=== PATIENT | female | born 1960 | race Caucasian/White ===

== ENCOUNTER 2016-05-13 22:31 | Inpatient (IN) | payer OTHER ==
[~2016-05-13] VITALS: Ht 152.4 cm; Wt 72.1 kg
[~2016-05-13 22:31] MED LIST: /ESCI10TA; /ESCI10TA OR; /ESCI20TA OR; /ESOM40CA PO; /HYDR.5CR EXT; /LORA10TA PO; /MOXI40TA OR; /OXYC15TA; /OXYC15TA PO; /PANT40TA; /PANT40TA OR; /PROM25SU OR; /ROPI5TA PO; ACET-654 PO; ACET650S OR; ACET65TA OR; ALLE25CA; ALLE25CA OR; AMLO10TA; AMLO10TA OR; AMLO10TA PO; AMLO10TA2 PO; AMRIX; AMRIX OR; ASTELIN; ATEN50TA2 PO; Atenolol OR; B-650TAB2 PO; BACL10TA2 PO; BACT800T5 PO; BACTROBAN; BELS1TAB4 PO; BENI20TA11; BENI20TA11 OR; BISAC5TA PR; CELE10TA PO; CELE20TA PO; CETI10TA PO; CETI10TA3 PO; CIPR25SS PO; CIPR500T4 OR; CIPROFLOXACIN OR; CLAR5CHW PO; CLON2TAB PO; COLA100C PO; COLA100C2; COLA100C2 OR; COLA50CA3 PO; CYMB1CAP5 PO; DANA200C PO; DICL13PA TD; DIFL150T OR; DOCU100C PO; DOCU10ELUD FT; ELIDEL; ELOCON; EMLA2.5C TOP; FENT75PA TD; FERR325T PO; FERR325T3 PO; FLAG500T OR; FLAG500T PO; FLON0.05; HCTZ PO; HEPA100SYR IV; HYDR25TA6; HYDR25TA6 OR; HYDR25TA6 PO; HYDR50TAB PO; HYDROCORTISONE0.5 % TOP; IBUP200T2 PO; IBUP80TA PO; IBUPOTC PO; KLON0.5T OR; KLON0.5T PO; KLON2TAB PO; KLOR10TA21 PO; KLOR10TA5 PO; LEVA500T PO; LEVA750T OR; LEVO750T PO; LOPR50TA; LOPR50TA OR; LORATADINE; LYRI75CA OR; MAGN400C2 PO; MAGN400T5 PO; MAGN500T2 OR; MAGNESIUM OXIDE PO; MECL-68 PO; METH10TA2; METH10TA2 PO; MIRA0.12 PO; MIRA0.254 PO; MIRA0.5T PO; MIRA3350 PO; MIRA33504 PO; MIRALAX; MIRALEX OR; MIRALEX PO; MIRAPEX PO; MULTIVIT PO; MULTTAB4 PO; NEUR300C OR; OMEP20CA3 PO; OMEP40CA2 PO; OSEL75CA PO; OXYC10TA56; OXYC15TA50; OXYC15TA50 OR; OXYC15TA76 PO; OXYC1TAB57 PO; OXYC30TA84 PO; OXYC40TA19; OXYC40TA19 OR; OXYC5CAP4 OR; OXYC60TA PO; OXYC80TA14 OR; OXYCO5TA PO; OXYCONTIN; OYST500T PO; PANT20TA PO; PEG1POW PO; PENC1CR TOP; PENNSAID; PEPC20TA2 PO; PHEN 25 OR; PHEN 25 PO; POTA10CA PO; POTA20TA6 PO; PREG50CA OR; PRIL20CA PO; PROM-190 PO; PROM25TA PO; PROM50TA2 PO; PROMETHAZINE; REQU5TAB PO; SLF IV; SOMA350T PO; TIZA4CAP3 PO; TRAZ100T2 PO; TRAZ100T4 PO; TRAZ50TA PO; TRIA1CR TOP; TUMS1000 PO; TYLE325T5 PO; VIT D 2000 PO; VITA250T30 PO; VITA500046 PO; VITA500047 PO; VITA50TA43 PO; VITACAP31 PO; VITAD1000T PO; VITAMIN B COMPLE1 PO; VITMTA PO; VOLT1GEL TOP; XANA1TAB2; XANA1TAB2 OR; XANA2TAB2 OR; ZANA4CAP OR; ZANA4TAB PO; [UNRECOGNIZED DRUG - CODE] IV; [UNRECOGNIZED DRUG - CODE] PO; [UNRECOGNIZED DRUG - CODE] TOP; [UNRECOGNIZED DRUG - OTHER]; [UNRECOGNIZED DRUG - OTHER]; [UNRECOGNIZED DRUG - OTHER] IV; [UNRECOGNIZED DRUG - OTHER] OR; [UNRECOGNIZED DRUG - OTHER] PO; phenergan PO
[2016-05-13] MEDS ORDERED: HYDROmorphone HCL 1 MG/ML SYRINGE (J1170) As Ordered ONE (23:21)
[2016-05-13] MEDS ORDERED: ONDANSETRON 4MG/2ML VIAL (J2405) As Ordered ONE (23:21)
[2016-05-13 23:54] LABS: BASO % 0.5 % (0.0-1.0); EOS # 0.1 K/mm3 (0.0-0.50); EOS % 3.2 % (0.0-3.0); LARGE UNSTAINED CELL # 0.1 K/mm3 (0.0-0.4); LARGE UNSTAINED CELL % 2.4 % (0.0-4.0); LYMPH # 1.5 K/mm3 (1.5-4.5); LYMPH % 44.3 % (24.0-44.0); MEAN CORPUSCULAR HEMOGLOBIN 29.1 pg (27.0-33.0); MEAN CORPUSCULAR HGB CONC 33.7 g/dl (32.0-36.5); MEAN CORPUSCULAR VOLUME 86.4 fl (80.0-96.0); MONO # 0.2 K/mm3 (0.0-0.8); MONO % 4.3 % (0.0-5.0); NEUTROPHILS # 1.6 K/mm3 (1.8-7.7); NEUTROPHILS % 45.2 % (36.0-66.0); PLATELET COUNT, AUTOMATED 132 k/mm3 (150-450); RED CELL DISTRIBUTION WIDTH 13.8 % (11.5-14.5); WHITE BLOOD COUNT 3.5 K/mm3 (4.0-10.0)
[2016-05-14 00:20] LABS: ALBUMIN 3.2 GM/DL (3.2-5.2); ALBUMIN/GLOBULIN RATIO 0.94 (1.00-1.93); ALKALINE PHOSPHATASE 98 U/L (45-117); ALT/SGPT 19 U/L (12-78); ANION GAP 5 MEQ/L (8-16); AST/SGOT 19 U/L (15-37); BILIRUBIN,DIRECT 0.1 MG/DL (0.0-0.2); BILIRUBIN,TOTAL 0.3 MG/DL (0.2-1.0); BLOOD UREA NITROGEN 13 MG/DL (7-18); CALCIUM LEVEL 8.3 MG/DL (8.5-10.1); CARBON DIOXIDE LEVEL 35 MEQ/L (21-32); CHLORIDE LEVEL 107 MEQ/L (98-107); CREATININE FOR GFR 0.63 MG/DL (0.55-1.02); GLOMERULAR FILTRATION RATE > 60.0 (>51); GLUCOSE, FASTING 102 MG/DL (70-105); POTASSIUM SERUM 3.2 MEQ/L (3.5-5.1); SODIUM LEVEL 147 MEQ/L (136-145); TOTAL PROTEIN 6.6 GM/DL (6.4-8.2)
[2016-05-14] MEDS ORDERED: GASTROGRAFIN SOLUTION 30ML (Q9963) As Ordered ONE (00:31)
[2016-05-14] MEDS ORDERED: ACETAMINOPHEN 325 MG TAB As Ordered ONE (00:32)
[2016-05-14] MEDS ORDERED: HYDROmorphone HCL 1 MG/ML SYRINGE (J1170) As Ordered ONE ×3 (00:52→05:05)
[2016-05-14] MEDS ORDERED: ISOVUE-370 76% 100ML VIAL (Q9967) As Ordered ONE (01:29)
--- NOTE | 2016-05-14 02:10 | REPUSA ---
CLINICAL HISTORY: Abdominal pain. TECHNIQUE: Multiple axial, sagittal and coronal CT images were obtained through the abdomen and pelvi s without administration of IV contrast material. Patient ingested oral contrast. COMMENTS: Moderate large bowel fecal stasis. The liver is of uniform attenuation without mass or defect. There is no intra or extrahepatic biliary ductal dilatation. The spleen is normal. Impacted gallstone in the neck of the gallbladder which is distended. Diffuse thickening of the wall of the gallbladder. The pancreas is of normal contour and a ttenuation characteristics. 3.5 cm right adrenal mass. The kidneys are normal in size, shape and configuration. No renal or ureteral calculi are identified. There is no hydroureter or hydronephrosis. There is no evidence for appendicitis. There is no bowel wall thickening. No evidence for small or la rge bowel obstruction. There is no evidence of abdominal ascites or lymphadenopathy. There is no evidence of intrinsic or extrinsic bladder mass. Diffuse thickening of the wall of the bl adder. There is no pelvic ascites or lymphadenopathy. Images of the lung bases show no evidence of pleural or parenchymal mass. Bilateral basilar atelectat ic pulmonary changes. There are no pleural effusions. The bony structures are free of lytic or blastic lesions. Multilevel degenerative changes are seen in volving the thoracolumbar spine. Scattered calcifications are seen involving the aorta and major branches compatible with atherosclero sis. IMPRESSION: Cholelithiasis. Suspect mild acute inflammatory changes of the gallbladder. Moderate constipation. Thickening of the wall of the bladder. Underdistention versus mild cystitis. Thank you for your kind referral of this patient.
[2016-05-14] MEDS ORDERED: POTASSIUM CHL PWD 20 MEQ PACKET As Ordered ONE (03:02)
[2016-05-14] MEDS ORDERED: tiZANidine 4 MG TAB PO PRN (04:45)
[2016-05-14] MEDS ORDERED: PENCICLOVIR 1% CREAM 5GM TOP PRN (04:45)
[2016-05-14] MEDS ORDERED: MAGNESIUM CITRATE 300 ML BTL PO PRN (04:45)
[2016-05-14] MEDS ORDERED: MIRALAX *UNIT DOSE* 17GM PACKET PO PRN (04:45)
--- NOTE | 2016-05-14 04:57 | EDDOCDS ---
Physician Documentation [facility] Name: Maribell Herrera Age: 55 yrs Sex: Female : 1960 Arrival Date: 05/13/2016 Time: 22:31 Bed 10 Private MD: Kamron Garcia PA Disposition: 05/14/16 04:07 Hospitalization ordered by Jake Perkins for Inpatient Admission. Preliminary diagnosis is Cholecystitis, unspecified. - Bed requested for 4 [place]. - Status is Inpatient Admission. sls1 - Condition is Stable. - Problem is new. - Symptoms are unchanged. Historical: - Allergies: Aspirin; GABAPENTIN; Codeine Sulfate; Morphine; PENICILLINS; PENTAZOCINE; pregabalin; Prochlorperazine Maleate; Toradol; - Home Meds: 1. amlodipine 10 mg Oral tab 1 tab once daily 2. atenolol 50 mg Oral tab 1 tab 2 times per day 3. Belsomra oral 1 tab nightly 4. calcium carbonate 1000mg Oral cap as needed 5. Berinert 500 unit (10 mL) intravenous kit 2000 units as needed 6. promethazine 25 mg Oral tab 1 tab twice daily as needed as needed 7. Prilosec 40 mg Oral cpDR 1 cap once daily 8. pramipexole 0.125 mg oral tab 9. oxycodone 30 mg Oral tab 1 tab every 6 hours (ran out yesterday) 10. Mirapex 0.25 mg Oral tab 1 tab daily 11. Miralax 17 gram Oral pwpk 1 packet as needed 12. magnesium oxide 400 mg Oral tab daily 13. hydrochlorothiazide 50 mg Oral tab 1 tab once daily 14. Klor-Con 10 10 mEq Oral TbER 1 tab 2 times per day 15. ferrous sulfate 325 mg (65 mg iron) Oral tab as needed 16. Cymbalta 30 mg Oral cpDR 1 cap once daily 17. Colace 100 mg oral cap 1 cap three times a day 18. clonazepam 2 mg Oral tab 1 tab 3 times per day 19. cetirizine 10 mg oral tab 1 tab once daily - PMHx: angioedema; Cancer, Breast - Left; Degenerative disc disease; Hepatitis B; Hepatitis C; Hypertension; neuropathy; Osteoporosis; - Social history: Smoking status: Patient uses tobacco products, current some day smoker. Race: White, Ethnicity: Not or No barriers to communication noted, Preferred Language: Albanian. - Family history: Not pertinent. - : The pt / caregiver states he / she is not on anticoagulants. Home medication list is obtained from the patient. - Exposure Risk Screening:: None identified. Vital Signs: 05/13 22:42 BP 139 / 68 (auto/); cf2 22:43 Pulse 74 MON; Pulse Ox 99% ; cf2 22:43 BP 131 / 72; cf2 22:49 BP 139 / 68; Pulse 75; Resp 16; Temp 98.0(O); Pulse Ox 98% on R/A; Weight 68.04 kg / kas2 150 lbs; Height 5 ft. 0 in. (152.40 cm); Pain 4/10; 23:00 Pulse 76 MON; Pulse Ox 97% ; cf2 05/14 00:40 Pulse 80 MON; Pulse Ox 94% ; cf2 00:55 Pulse 80 MON; Pulse Ox 94% ; cf2 01:36 Pulse 78 MON; Pulse Ox 96% ; cf2 02:20 BP 129 / 72; cf2 04:48 BP 131 / 76; Pulse 80; Resp 18; Temp 98.0; Pulse Ox 94% on R/A; Pain 4/10; cf2 05/13 22:49 Body Mass Index 29.29 (68.04 kg, 152.40 cm) kas2 MDM: 05/13 23:08 IV Saline Lock ordered. br1 23:08 Guidance Adviser/Pulse Ox/q 30 min VS ordered. br1 23:09 CBC with Diff Ordered. EDMS 23:09 BMP Ordered. EDMS 23:09 Liver Profile Ordered. EDMS 23:09 Lipase Ordered. EDMS 23:09 Troponin Ordered. EDMS 23:09 -Influenza A&B Rapid Antigen - Nose Ordered. EDMS 23:10 Chest, 2 View (pa\E\lat) Ordered. EDMS 23:10 ECG WITH READING ER PHYS+CARDIAG ordered. EDMS 23:11 NS 0.9% 1000 ml IV at 100 mL/hr continuous ordered. br1 23:11 Ondansetron 4 mg IVP once ordered. br1 23:12 Dilaudid - HYDROmorphone 0.5 mg IVP once ordered. br1 23:51 [facility] Payment Agreement was scanned into Fixed - Parking Tickets and attached to record. scot 23:51 Financial registration complete. scot 05/14 00:16 Acetaminophen Tablet 650 mg PO once ordered. cs11 00:38 Dilaudid - HYDROmorphone 0.5 mg IVP once ordered. cs11 00:58 CBC with Diff Reviewed. cs11 00:58 BMP Reviewed. cs11 00:58 Liver Profile Reviewed. cs11 00:58 Lipase Reviewed. cs11 00:58 Troponin Reviewed. cs11 00:58 -Influenza A&B Rapid Antigen - Nose Reviewed. cs11 00:59 Potassium Chloride Extended Release Tablet 40 mEq PO once ordered. cs11 01:36 CT ABD & PELVIS W/O CONTRAST Ordered. EDMS 02:17 Ultrasound Abd Limited Ordered. EDMS 02:58 CT ABD & PELVIS W/O CONTRAST Reviewed. cs11 03:07 Dilaudid - HYDROmorphone 1 mg IVP once ordered. cs11 04:03 BED REQUEST+ADM ordered. EDMS 04:05 Admission Orders was scanned into Fixed - Parking Tickets and attached to record. ar3 Administered Medications: Discontinued: NS 0.9% 1000 ml IV at 100 mL/hr continuous 05/13 23:45 Drug: Ondansetron 4 mg [ondansetron HCl 2 mg/mL intravenous solution (2 mL)] Route: cf2 IVP; Site: Implantable Access Device; 05/14 01:09 Follow up: Response: No significant change. cf2 05/13 23:46 Drug: NS 0.9% 1000 ml [sodium chloride 0.9 % intravenous solution] Route: IV; Rate: 100 cf2 mL/hr; Site: Implantable Access Device; 05/14 01:10 Follow up: Response: No significant change. cf2 05/13 23:46 Drug: Dilaudid - HYDROmorphone 0.5 mg [hydromorphone 1 mg/mL injection syringe (0.5 cf2 mL)] Route: IVP; Site: Implantable Access Device; 05/14 01:09 Follow up: Response: No significant change. cf2 00:48 Not Given (Patient Refused): Acetaminophen Tablet 650 mg PO once cf2 00:50 Drug: Dilaudid - HYDROmorphone 0.5 mg [hydromorphone 1 mg/mL injection syringe (0.5 cf2 mL)] Route: IVP; Site: Implantable Access Device; 01:10 Follow up: Response: No significant change. cf2 02:00 Drug: Potassium Chloride 40 mEq [potassium chloride ER 10 mEq tablet,extended release cf2 (4 tabs)] Route: PO; 03:08 Follow up: Response: No Adverse Reaction cf2 03:15 Drug: Dilaudid - HYDROmorphone 1 mg [hydromorphone 1 mg/mL injection syringe (1 mL)] cf2 Route: IVP; Site: Implantable Access Device; 03:32 Follow up: Response: Pain is decreased cf2 Signatures: Dispatcher [employer] EDMS Daryl Miller MD MD br1 Brittney Croft, STEAM CONDITIONER FILLING STEAM [employer] FILLING ar3 Marilee Murphy RN RN sls1 Malcolm Colvin, DO cs11 Arel, Gisel CooperRN RN [facility] Maribell Callahan,RN RN cf2 The chart was reviewed and I authenticate all verbal orders and agree with the evaluation and treatment provided.Corrections: (The following items were deleted from the chart) 01:36 12 23:50 CT ABD & PELVIS WITH CONTRAST+CT ordered. EDMS EDMS Attachments: 23:51 [facility] Payment Agreement 05/14 04:05 Admission Orders ar3 [facility]
--- NOTE | 2016-05-14 04:57 | EDDOCDS ---
Nurse's Notes [facility] Name: Maribell Herrera Age: 55 yrs Sex: Female : 1960 Arrival Date: 05/13/2016 Time: 22:31 Bed 10 Private MD: Kamron Garcia PA Diagnosis: Cholecystitis, unspecified Presentation: 05/13 22:45 Presenting complaint: Patient states: Patient states increased abdominal pain after kas2 Berinert infusion this evening. Patient also states URI symptoms for the past few days. EMS states: Stable transport. Adult Sepsis Screening: The patient does not have new or worsening altered mentation. Patient's respiratory rate is less than 22. Systolic blood pressure is greater than 100. Patient has a qSOFA score of 0- Negative Sepsis Screen. Suicide/Homicide risk assessment- the patient denies having any suicidal and/or homicidal ideations and does not present with any other emotional, behavioral or mental health complaints. Status: Patient is not a dispatcher service or dependent. Transition of care: patient was not received from another setting of care. 22:45 Acuity: ADIS Level 3 [facility] 22:45 Acuity: ADIS Level 3 [facility] 22:45 Method Of Arrival: Ambulance [facility] Triage Assessment: 22:49 General: Appears in no apparent distress, comfortable, Behavior is appropriate for age, kas2 cooperative. Pain: Denies pain. Pt Declines HIV testing. EENT: Reports nasal congestion nasal discharge Sore throat. Cardiovascular: No deficits noted. Respiratory: Onset: The symptoms/episode began/occurred gradually, No deficits noted. GI: No deficits noted. : No deficits noted. Historical: - Allergies: Aspirin; GABAPENTIN; Codeine Sulfate; Morphine; PENICILLINS; PENTAZOCINE; pregabalin; Prochlorperazine Maleate; Toradol; - Home Meds: 1. amlodipine 10 mg Oral tab 1 tab once daily 2. atenolol 50 mg Oral tab 1 tab 2 times per day 3. Belsomra oral 1 tab nightly 4. calcium carbonate 1000mg Oral cap as needed 5. Berinert 500 unit (10 mL) intravenous kit 2000 units as needed 6. promethazine 25 mg Oral tab 1 tab twice daily as needed as needed 7. Prilosec 40 mg Oral cpDR 1 cap once daily 8. pramipexole 0.125 mg oral tab 9. oxycodone 30 mg Oral tab 1 tab every 6 hours (ran out yesterday) 10. Mirapex 0.25 mg Oral tab 1 tab daily 11. Miralax 17 gram Oral pwpk 1 packet as needed 12. magnesium oxide 400 mg Oral tab daily 13. hydrochlorothiazide 50 mg Oral tab 1 tab once daily 14. Klor-Con 10 10 mEq Oral TbER 1 tab 2 times per day 15. ferrous sulfate 325 mg (65 mg iron) Oral tab as needed 16. Cymbalta 30 mg Oral cpDR 1 cap once daily 17. Colace 100 mg oral cap 1 cap three times a day 18. clonazepam 2 mg Oral tab 1 tab 3 times per day 19. cetirizine 10 mg oral tab 1 tab once daily - PMHx: angioedema; Cancer, Breast - Left; Degenerative disc disease; Hepatitis B; Hepatitis C; Hypertension; neuropathy; Osteoporosis; - Social history: Smoking status: Patient uses tobacco products, current some day smoker. Race: White, Ethnicity: Not or No barriers to communication noted, Preferred Language: Estonian. - Family history: Not pertinent. - : The pt / caregiver states he / she is not on anticoagulants. Home medication list is obtained from the patient. - Exposure Risk Screening:: None identified. Screenin/22 03:33 Screening information is obtained from the patient. Fall risk: No risks identified. cf2 Assistance ADL's: requires no assistance with activities of daily living. Abuse/DV Screen: The patient / caregiver reports he/she is: not in a situation that causes fear, pain or injury. Nutritional screening: No deficits noted. Advance Directives: Further advance directive information is declined. home support is adequate. Assessment: 00:06 General: Spoke with provider regarding pt request for pain medication, provider into [facility] speak with pt. 02:36 Adult Sepsis Screening: The patient does not have new or worsening altered mentation. cf2 Patient's respiratory rate is less than 22. Systolic blood pressure is greater than 100. Patient has a qSOFA score of 0- Negative Sepsis Screen. General: Appears comfortable, Behavior is appropriate for age, cooperative. Pain: Denies pain. Neurological: No deficits noted. EENT: No deficits noted. Cardiovascular: No deficits noted. Cardiovascular: Rhythm is sinus rhythm Chest pain is denied. Respiratory: No deficits noted. Airway is patent via trache Respiratory effort is even, unlabored, Breath sounds are clear bilaterally. GI: No deficits noted. : No deficits noted. Derm: No deficits noted. Musculoskeletal: No deficits noted. Injury Description: No known injury. 03:32 General: Appears. cf2 04:48 Reassessment: Patient states symptoms have improved. cf2 Vital Signs: 05/13 22:42 BP 139 / 68 (auto/); cf2 22:43 Pulse 74 MON; Pulse Ox 99% ; cf2 22:43 BP 131 / 72; cf2 22:49 BP 139 / 68; Pulse 75; Resp 16; Temp 98.0(O); Pulse Ox 98% on R/A; Weight 68.04 kg; [facility] Height 5 ft. 0 in. (152.40 cm); Pain 4/10; 23:00 Pulse 76 MON; Pulse Ox 97% ; cf2 05/14 00:40 Pulse 80 MON; Pulse Ox 94% ; cf2 00:55 Pulse 80 MON; Pulse Ox 94% ; cf2 01:36 Pulse 78 MON; Pulse Ox 96% ; cf2 02:20 BP 129 / 72; cf2 04:48 BP 131 / 76; Pulse 80; Resp 18; Temp 98.0; Pulse Ox 94% on R/A; Pain 4/10; cf2 05/13 22:49 Body Mass Index 29.29 (68.04 kg, 152.40 cm) [facility] Vitals: 05/13 22:49 Log In Time N/A - ambulance arrival. [facility] ED Course: 22:32 Patient visited by Brittney Croft PCA. ar3 22:32 Patient moved to Waiting ar3 22:32 Patient moved to 10 ar3 22:33 Kamron Garcia is Private Physician. ar3 22:38 Malcolm Colvin DO is Attending Physician. cs11 22:38 Patient visited by Malcolm Colvin DO. cs11 22:45 Gisel Hernandez RN is Primary Nurse. kas2 22:45 Patient visited by Gisel Hernandez RN. kas2 22:46 Triage Initiated [facility] 22:58 Primary Nurse role handed off by Gisel Hernandez,CORKY cf2 22:58 Maribell Callahan,CORKY is Primary Nurse. cf2 22:58 Patient visited by Maribell Callahan,CORKY. cf2 22:59 Daryl Miller MD is Attending Physician. br1 23:29 Patient visited by Sebastian Mccauley. jp4 23:29 EKG done. (by ED staff). Reviewed by Daryl Miller MD. jp4 23:45 Patient visited by Maribell Callahan,RN. cf2 23:46 -Influenza A&B Rapid Antigen - Nose Sent. cf2 23:46 Troponin Sent. cf2 23:46 Lipase Sent. cf2 23:46 Liver Profile Sent. cf2 23:46 BMP Sent. cf2 23:46 CBC with Diff Sent. cf2 23:51 [facility] Payment Agreement was scanned into [employer] and attached to record. lja 23:58 Attending Physician role handed off by Daryl Miller MD cs11 23:58 Malcolm Colvin DO is Attending Physician. cs11 23:58 Patient moved to OBSERVATION cs11 05/14 00:00 Accessed using # 22 Lala needle sterile technique, per hospital protocol. InfusaPort cf2 in patient's Left chest wall. No procedures done that require assistance. 02:33 Patient moved to Ultrasound br3 02:51 CT ABD & PELVIS W/O CONTRAST Returned. EDMS 02:52 Patient moved to 10 br3 03:07 Patient visited by Maribell Callahan,CORKY. cf2 03:33 The patient / caregiver is instructed regarding the plan of care and ED course. Patient cf2 has correct armband on for positive identification. Placed in gown. Bed in low position. Call light in reach. Side rails up X 1. Side rails up X2. monitoring tech on. Pulse ox on. NIBP on. Door closed. Noise minimized. Visitors limited. Lights dimmed. Moved to private room. Cool cloth applied. Verbal reassurance given. Warm blanket given. Pillow given. Head of bed elevated. 03:35 Patient visited by Kristopher Whalen PCA. kb5 04:05 Admission Orders was scanned into [employer] and attached to record. ar3 04:07 Jake Perkins DO is Hospitalizing Provider. cs11 Administered Medications: Discontinued: NS 0.9% 1000 ml IV at 100 mL/hr continuous 05/13 23:45 Drug: Ondansetron 4 mg [ondansetron HCl 2 mg/mL intravenous solution (2 mL)] Route: cf2 IVP; Site: Implantable Access Device; 05/14 01:09 Follow up: Response: No significant change. cf2 05/13 23:46 Drug: NS 0.9% 1000 ml [sodium chloride 0.9 % intravenous solution] Route: IV; Rate: 100 cf2 mL/hr; Site: Implantable Access Device; 05/14 01:10 Follow up: Response: No significant change. cf2 05/13 23:46 Drug: Dilaudid - HYDROmorphone 0.5 mg [hydromorphone 1 mg/mL injection syringe (0.5 cf2 mL)] Route: IVP; Site: Implantable Access Device; 05/14 01:09 Follow up: Response: No significant change. cf2 00:48 Not Given (Patient Refused): Acetaminophen Tablet 650 mg PO once cf2 00:50 Drug: Dilaudid - HYDROmorphone 0.5 mg [hydromorphone 1 mg/mL injection syringe (0.5 cf2 mL)] Route: IVP; Site: Implantable Access Device; 01:10 Follow up: Response: No significant change. cf2 02:00 Drug: Potassium Chloride 40 mEq [potassium chloride ER 10 mEq tablet,extended release cf2 (4 tabs)] Route: PO; 03:08 Follow up: Response: No Adverse Reaction cf2 03:15 Drug: Dilaudid - HYDROmorphone 1 mg [hydromorphone 1 mg/mL injection syringe (1 mL)] cf2 Route: IVP; Site: Implantable Access Device; 03:32 Follow up: Response: Pain is decreased cf2 Order Results: Lab Order: CBC with Diff; SPEC'M 05/13/16 23:31 Test: WHITE BLOOD COUNT; Value: 3.5; Range: 4.0-10.0; Abnormal: Below low normal; Units: K/mm3; Status: F Test: RED BLOOD COUNT; Value: 3.33; Range: 4.00-5.40; Abnormal: Below low normal; Units: M/mm3; Status: F Test: HEMOGLOBIN; Value: 9.7; Range: 12.0-16.0; Abnormal: Below low normal; Units: g/dl; Status: F Test: HEMATOCRIT; Value: 28.8; Range: 36.0-47.0; Abnormal: Below low normal; Units: %; Status: F Test: MEAN CORPUSCULAR VOLUME; Value: 86.4; Range: 80.0-96.0; Units: fl; Status: F Test: MEAN CORPUSCULAR HEMOGLOBIN; Value: 29.1; Range: 27.0-33.0; Units: pg; Status: F Test: MEAN CORPUSCULAR HGB CONC; Value: 33.7; Range: 32.0-36.5; Units: g/dl; Status: F Test: RED CELL DISTRIBUTION WIDTH; Value: 13.8; Range: 11.5-14.5; Units: %; Status: F Test: PLATELET COUNT, AUTOMATED; Value: 132; Range: 150-450; Abnormal: Below low normal; Units: k/mm3; Status: F Test: NEUTROPHILS %; Value: 45.2; Range: 36.0-66.0; Units: %; Status: F Test: LYMPH %; Value: 44.3; Range: 24.0-44.0; Abnormal: Above high normal; Units: %; Status: F Test: MONO %; Value: 4.3; Range: 0.0-5.0; Units: %; Status: F Test: EOS %; Value: 3.2; Range: 0.0-3.0; Abnormal: Above high normal; Units: %; Status: F Test: BASO %; Value: 0.5; Range: 0.0-1.0; Units: %; Status: F Test: LARGE UNSTAINED CELL %; Value: 2.4; Range: 0.0-4.0; Units: %; Status: F Test: NEUTROPHILS #; Value: 1.6; Range: 1.8-7.7; Abnormal: Below low normal; Units: K/mm3; Status: F Test: LYMPH #; Value: 1.5; Range: 1.5-4.5; Units: K/mm3; Status: F Test: MONO #; Value: 0.2; Range: 0.0-0.8; Units: K/mm3; Status: F Test: EOS #; Value: 0.1; Range: 0.0-0.50; Units: K/mm3; Status: F Test: BASO #; Value: 0.0; Range: 0.0-0.2; Units: K/mm3; Status: F Test: LARGE UNSTAINED CELL #; Value: 0.1; Range: 0.0-0.4; Units: K/mm3; Status: F Lab Order: BMP; SPEC'M 05/13/16 23:31 Test: GLUCOSE, FASTING; Value: 102; Range: 70-105; Units: MG/DL; Status: F Test: BLOOD UREA NITROGEN; Value: 13; Range: 7-18; Units: MG/DL; Status: F Test: CREATININE FOR GFR; Value: 0.63; Range: 0.55-1.02; Units: MG/DL; Status: F Test: GLOMERULAR FILTRATION RATE; Value: > 60.0; Range: >51; Status: F Test: SODIUM LEVEL; Value: 147; Range: 136-145; Abnormal: Above high normal; Units: MEQ/L; Status: F Test: POTASSIUM SERUM; Value: 3.2; Range: 3.5-5.1; Abnormal: Below low normal; Units: MEQ/L; Status: F Test: CHLORIDE LEVEL; Value: 107; Range: 98-107; Units: MEQ/L; Status: F Test: CARBON DIOXIDE LEVEL; Value: 35; Range: 21-32; Abnormal: Above high normal; Units: MEQ/L; Status: F Test: ANION GAP; Value: 5; Range: 8-16; Abnormal: Below low normal; Units: MEQ/L; Status: F Test: CALCIUM LEVEL; Value: 8.3; Range: 8.5-10.1; Abnormal: Below low normal; Units: MG/DL; Status: F Test Note: ; Units are mL/min/1.73 m2 Chronic Kidney Disease Staging per NKF: Stage I & II GFR >=60 Normal to Mildly Decreased Stage III GFR 30-59 Moderately Decreased Stage IV GFR 15-29 Severely Decreased Stage V GFR <15 Very Little GFR Left ESRD GFR <15 on CHILD SUPPORT OFFICER Lab Order: Liver Profile; SPEC'M 05/13/16 23:31 Test: AST/SGOT; Value: 19; Range: 15-37; Units: U/L; Status: F Test: ALT/SGPT; Value: 19; Range: 12-78; Units: U/L; Status: F Test: ALKALINE PHOSPHATASE; Value: 98; Range: 45-117; Units: U/L; Status: F Test: BILIRUBIN,TOTAL; Value: 0.3; Range: 0.2-1.0; Units: MG/DL; Status: F Test: BILIRUBIN,DIRECT; Value: 0.1; Range: 0.0-0.2; Units: MG/DL; Status: F Test: TOTAL PROTEIN; Value: 6.6; Range: 6.4-8.2; Units: GM/DL; Status: F Test: ALBUMIN; Value: 3.2; Range: 3.2-5.2; Units: GM/DL; Status: F Test: ALBUMIN/GLOBULIN RATIO; Value: 0.94; Range: 1.00-1.93; Abnormal: Below low normal; Status: F Lab Order: Lipase; SPEC'M 05/13/16 23:31 Test: LIPASE; Value: 120; Range: 73-393; Units: U/L; Status: F Lab Order: Troponin; SPEC'M 05/13/16 23:31 Test: TROPONIN I; Value: < 0.02; Range: < 0.10; Units: NG/ML; Status: F Test Note: ; Troponin I Reference Interval for Siemens Dada LOCI: 99th Percentile= 0.00-0.045 ng/ml Risk Stratification: <= 0.10 ng/ml Decreased Risk for Adverse Clinical Events. 0.10-1.50 ng/ml Increased Risk for Adverse Clinical Events. Evaluation of additional criterion and/or repeat testing in 2-6 hours is suggested to rule out myocardial damage. >= 1.50 ng/ml Indicative of Myocardial Injury. Lab Order: -Influenza A&B Rapid Antigen - Nose; SPEC'M 05/13/16 23:30 Test: INFLUENZA A RAPID SCR by ICA; Value: INFLUENZA A RESULTS NEGATIVE; Status: F Test: INFLUENZA A RAPID SCR by ICA; Value: Comments:; Status: F Test: INFLUENZA B RAPID SCR by ICA; Value: INFLUENZA B RESULTS NEGATIVE; Status: F Test Note: ; The Influenza test is a direct rapid immunoassay for the qualitative detection of Influenza viral antigen. Cell culture (Viral Culture) testing should be considered to confirm NEGATIVE results and to assist in detecting other viruses that can provide similar clinical symptoms. Please contact the lab within 24 hours ([phone]) if confirmatory testing is desired. Radiology Order: CT ABD & PELVIS W/O CONTRAST Test: CT ABD & PELVIS W/O CONTRAST REASON FOR EXAMINATION: Abdomen Pain; ; CLINICAL HISTORY: Abdominal pain.; TECHNIQUE: Multiple axial, sagittal and coronal CT images were obtained through the abdomen and pelvi; s without administration of IV contrast material. Patient ingested oral contrast.; COMMENTS:; Moderate large bowel fecal stasis.; The liver is of uniform attenuation without mass or defect. There is no intra or extrahepatic biliary; ductal dilatation. The spleen is normal. Impacted gallstone in the neck of the gallbladder which is; distended. Diffuse thickening of the wall of the gallbladder. The pancreas is of normal contour and a; ttenuation characteristics. 3.5 cm right adrenal mass.; The kidneys are normal in size, shape and configuration. No renal or ureteral calculi are identified.; There is no hydroureter or hydronephrosis.; There is no evidence for appendicitis. There is no bowel wall thickening. No evidence for small or la; rge bowel obstruction. There is no evidence of abdominal ascites or lymphadenopathy.; There is no evidence of intrinsic or extrinsic bladder mass. Diffuse thickening of the wall of the bl; adder. There is no pelvic ascites or lymphadenopathy.; Images of the lung bases show no evidence of pleural or parenchymal mass. Bilateral basilar atelectat; ic pulmonary changes. There are no pleural effusions.; The bony structures are free of lytic or blastic lesions. Multilevel degenerative changes are seen in; volving the thoracolumbar spine.; Scattered calcifications are seen involving the aorta and major branches compatible with atherosclero; sis.; IMPRESSION:; Cholelithiasis.; Suspect mild acute inflammatory changes of the gallbladder.; Moderate constipation.; Thickening of the wall of the bladder. Underdistention versus mild cystitis.; Thank you for your kind referral of this patient.; ; Outcome: 04:07 Decision to Hospitalize by Provider. cs11 04:48 Discharge Assessment: Patient awake, alert and oriented x 3. No cognitive and/or cf2 functional deficits noted. Patient verbalized understanding of disposition instructions. Patient awake and alert. Oriented to person, place and time. patient administered narcotics - yes. Patient was admitted to the hospital or transferred to another facility. The following High Risk Discharge criteria are identified: None. Admitted to Med/Surg accompanied by tech. Condition: stable. CT Study completed. Ultrasound Study completed. Property :Personal belongings accompany Pt. 04:56 Patient left the ED. sls1 Signatures: Dispatcher [employer] EDMS Kristopher Whalen, SALE PROFESSIONAL [employer]ETING [employer] kb5 Daryl Miller MD MD br1 Deandra De La Rosa br3 Brittney Croft, SALE PROFESSIONAL [employer] MARKETING [employer]ET[employer] ar3 Marilee Murphy, RN RN sls1 Malcolm Colvin DO DO cs11 Parisa, Sebastian jp4 Arel, Giesl Cooper,RN RN kas2 Maribell Callahan,RN RN cf2 MTDD
[2016-05-14] MEDS ORDERED: AZEL0.1S3 (04:59)
[2016-05-14] MEDS ORDERED: OXYC1TAB57 PO (04:59)
[2016-05-14] MEDS ORDERED: VITA50003 PO (04:59)
[2016-05-14] MEDS ORDERED: OXYC30TA84 PO (05:02)
[2016-05-14] MEDS ORDERED: CITRSOL8 PO (05:04)
[2016-05-14 05:30] VITALS: BP 142/80
[2016-05-14] MEDS: oxyCODONE 5MG TAB PO PRN ×3 (06:43→18:46)
[2016-05-14] MEDS ORDERED: LR 1,000 ML IV SCH (07:00)
[2016-05-14] MEDS ORDERED: BISACODYL 10 MG SUPP PR PRN (07:30)
[2016-05-14] MEDS: metroNIDAZOLE 500 MG in APPROPRIATE DILUENT 1 EA IV SCH ×3 (08:00→22:59)
--- NOTE | 2016-05-14 08:56 | REP ---
CHEST, TWO VIEWS: Two views of the chest are performed and compared to prior study of 02/27/2016 and 04/17/2016. Heart is upper limits of normal in size. There is mild ectasia of the thoracic aorta. The mediastinal silhouette is unchanged. Right MediPort catheter is noted as well as tracheostomy tube. These appear to be in good position. Scattered fibrotic changes appear stable with no evidence of acute infiltrate. There is diffuse osteopenia. Several compression deformities of mid thoracic vertebral bodies appear stable. There are mild degenerative changes of the spine. There is accentuation of thoracic kyphosis. IMPRESSION: Stable chronic changes as discussed above. No evidence of acute infiltrate. Signed by Jake Adorno MD 05/14/2016 04:40 P
[2016-05-14] MEDS: oxyCODONE 40 MG CR TAB PO SCH ×2 (09:00→20:17)
[2016-05-14] MEDS ORDERED: MAGNESIUM CITRATE 300 ML BTL PO ONE (09:00)
[2016-05-14] MEDS: hydroCHLOROthiazide 25 MG TAB PO SCH (09:02)
[2016-05-14] MEDS: DULoxetine 30 MG CAP (CYMBALTA) PO SCH (09:02)
[2016-05-14] MEDS: CALCIUM CARBONATE 500 MG CHEW U/D PO SCH ×2 (09:02→20:17)
[2016-05-14] MEDS: clonazePAM 1 MG TAB PO SCH ×3 (09:02→20:17)
--- NOTE | 2016-05-14 09:02 | ECGEPIP ---
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
[2016-05-14] MEDS: ATENOLOL 50 MG TAB PO SCH ×2 (09:03→20:17)
[2016-05-14] MEDS: DOCUSATE SODIUM 100 MG CAP PO SCH ×3 (09:03→20:17)
[2016-05-14] MEDS: FERROUS SULFATE 325MG TAB PO SCH (09:03)
[2016-05-14] MEDS: MECLIZINE 25 MG TABLET PO SCH ×3 (09:03→20:17)
[2016-05-14] MEDS: CETIRIZINE (ZyrTEC) 10 MG TAB PO SCH (09:04)
[2016-05-14] MEDS: KCL 10MEQ IN 100ML SWI (KRUN) 10 MEQ in APPROPRIATE DILUENT 1 EA IV SCH ×8 (09:04→12:00)
[2016-05-14] MEDS: ENOXAPARIN 40 MG/0.4 ML SYRINGE (J1650) SC SCH (09:04)
[2016-05-14] MEDS: AZELASTINE 137MCG NASAL SPY 30 ML (ASTELIN) SCH (09:04)
[2016-05-14] MEDS ORDERED: IPRATROPIUM 0.5MG/ALBUTEROL 2.5MG INH SOL UD 3ML (DUONEB)(J7620) NEB PRN (09:15)
--- NOTE | 2016-05-14 10:11 | REPUSA ---
CLINICAL HISTORY: Abdominal pain. TECHNIQUE: Realtime sonographic images were obtained in multiple projections. COMMENTS: The liver is of normal size, parenchyma demonstrates normal echogenicity. No discrete hepatic mass is seen. There is mild extrahepatic biliary ductal dilatation. CBD measures 7.2 mm. The gallbladder distended containing multiple gallstones. Mild diffuse thickening of the wall of the gallbladder measuring 4 mm . There is no abdominal ascites. The right kidney measures 11.2x5.8x4.3 cm, free of hydronephrosis. Right adrenal mass measuring 3.4 x 3.2x3.4 cm. IMPRESSION: Cholelithiasis. Suspected acute inflammatory changes of the gallbladder. Dilated biliary tree. Right adrenal mass. Thank you for your kind referral of this patient.
[2016-05-14] MEDS: CIPROFLOXACIN 400 MG in APPROPRIATE DILUENT 1 EA IV SCH ×2 (11:52→20:19)
--- NOTE | 2016-05-14 12:26 | IPNPDOC ---
Text Note Date of Service The patient was seen on 05/14/16 at 11:52. 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 Patient had a recent admission in 03/2016 for abdominal pain and was found to be 2/2 to exacerbation of hereditary angioedema , for which she received an additional dose of Berinert. Patient presented to the ER this time with complaints of abdominal pain and was found to have cholelithiasis and suspected inflammation of their gallbladder. She was admitted to surgical service for acute cholecystitis. Patient was seen and examined at the bedside. Clinically she notes that she is still experiencing abdominal pain. She notes that there hasn't been much resolution from her arrival. She denies nausea and vomiting. Objective: Vitals (see below) General: Lying in bed, no acute distress, AAOx3 HEENT: NC, AT CVS: RRR, +S1S2 Lungs: Fair air entry bilaterally, no wheezing / rales / rhonchi Abdomen: Soft, ND, Tenderness apreciated at the right upper quadrant, Hypoactive BS Extremities: No lower extremity edema, no calf tenderness Assessment and plan: 1. Abdominal pain - possibly 2/2 acute cholecystitis, possibly 2/2 constipation , possibly 2/2 exacerbation of angioedema - presented to ER with complaints of abdominal pain, similar to prior episodes - physical reveals right upper quadrant tenderness - US abdomen 04/14: reveals cholelithiasis and suspected inflammation of gallbladder - Admitted to surgical service; will continue with magnesium citrate, mild of magnesium, polyethylene glycol to induce bowel movements - Follows with Dr. Roca as an outpatient for immunology - will check Functional C1 esterase inhibitor level - c/w Ciprofloxacin and Flagyl (Day #1) - Will continue to follow 2. Chronic pain - likely 2/2 degenerative disease - continue with home pain medication regimen - will continue to monitor breathing status 3. Hypokalemia - will replete 4. Hypernatremia - will increase amount of free water; - will change LR to 1/2NS - will follow 5. Normocytic anemia - Hg appears to be at baseline - will follow 6. Leukopenia, chronic - will monitor for now 7. Hepatitis B and C - no elevation in liver enzymes - continue to follow as outpatient 8. HTN - continue with home medications (Amlodipine and Atenolol) with holding parameters 9. Psoriasis - c/w home medications 10. History of left breast cancer 11. Osteoporosis 12. GERD - c/w protonix 13. DVT prophylaxis - c/w lovenox VS,Fishbone, I+O VS, Fishbone, I+O Laboratory Tests 05/13/16 23:31 Red Blood Count 3.33 L, Mean Corpuscular Volume 86.4, Mean Corpuscular Hemoglobin 29.1, Mean Corpuscular Hemoglobin Concent 33.7, Red Cell Distribution Width 13.8, Neutrophils (%) (Auto) 45.2, Lymphocytes (%) (Auto) 44.3 H, Monocytes (%) (Auto) 4.3, Eosinophils (%) (Auto) 3.2 H, Basophils (%) ( Auto) 0.5, Neutrophils # (Auto) 1.6 L, Lymphocytes # (Auto) 1.5, Monocytes # ( Auto) 0.2, Eosinophils # (Auto) 0.1, Basophils # (Auto) 0.0 Vital Signs Date Time Temp Pulse Resp B/P Pulse Ox O2 Delivery O2 Flow Rate FiO2 05/14/16 09:03 79 152/88 05/14/16 09:00 18 Room Air 05/14/16 05:30 98.5 92 LUCIA NUNEZ MD May 14, 2016 12:13
[2016-05-14] MEDS: PANTOPRAZOLE 20 MG TAB PO SCH (12:49)
[2016-05-14] MEDS: NS 0.45% 1,000 ML IV SCH ×2 (12:50→22:00)
[2016-05-14] MEDS: amLODIPine 10 MG TAB PO SCH (12:50)
[2016-05-14 14:00] VITALS: BP 115/63
--- NOTE | 2016-05-14 14:43 | CR ---
DATE OF CONSULTATION: 05/14/2016 PRIMARY CARE PROVIDER: MARTY Jordan CONSULTING PHYSICIAN: Dr. Perkins REASON FOR CONSULTATION: Medical management. ENTRY LEVEL ACCOUNT REPRESENTATIVE: Dr. Roca RATING EXAMINER: Dr. Franklin REASON FOR ADMISSION: Abdominal pain, cholelithiasis. HISTORY OF PRESENT ILLNESS: The patient is a 55-year-old female with past medical history significant for C1 esterase deficiency, hereditary angioedema, degenerative disk disease, hypertension, hepatitis B and C, chronic pain, presented to the emergency room complaining of abdominal pain that started last evening around 7:00 p.m. not related to diet or eating habits. She stated she had similar episodes in the past related to her hereditary angioedema. Pain worsened, was associated with nausea and some chills. She presented to the emergency room. CT scan was obtained in the emergency room. The patient was found to have cholelithiasis and mild acute inflammatory changes of the gallbladder as well as moderate constipation. At that point Dr. Perkins was called for the admission and medical consult was made at that point. REVIEW OF SYSTEMS: 12-point review of systems was obtained all of which was negative except for those mentioned above. PAST MEDICAL HISTORY: Significant for: Hereditary angioedema. History of left breast cancer status post modified radical mastectomy and chemo. Degenerative disk disease. Hepatitis B. Hepatitis C. Hypertension. Neuropathy. Osteoporosis. Kyphosis. PAST SURGICAL HISTORY: Significant for: Tracheostomy. Infusaport. Right hip surgery. Tubal ligation. Appendectomy. SOCIAL HISTORY: The patient denies any alcohol or tobacco use. Lives at home by herself. ALLERGIES: 1. ASPIRIN. 2. GABAPENTIN. 3. CODEINE. 4. KETOROLAC. 5. MORPHINE. 6. ODANSETRON. 7. PENICILLINS. 8. PENTAZOCINE. 9. PREGABALIN. 10. PROCHLORPERAZINE. FAMILY HISTORY: Noncontributory. HOME MEDICATIONS: Include: - Tylenol 650 by mouth every 4 hours as needed for pain - amlodipine 10 mg by mouth daily - atenolol 50 mg by mouth twice a day - azelastine one spray per nares daily - C1 esterase inhibitor 2000 units IV as needed for flare-ups - Tums 1000 mg by mouth twice a day - cetirizine 10 mg by mouth daily - clonazepam 2 mg by mouth three times a day - Colace 100 mg by mouth three times a day - Cymbalta 60 mg by mouth daily - vitamin D 50,000 units once week - iron 325 by mouth daily - hydrochlorothiazide 50 mg by mouth daily - magnesium citrate 300 mg by mouth daily as needed for constipation - magnesium oxide 800 mg by mouth daily - meclizine 25 mg by mouth three times a day - oxycodone extended release 40 mg by mouth twice a day - oxycodone 30 mg by mouth every 4 hours as needed for pain - pantoprazole 20 mg by mouth daily - potassium chloride 20 mEq by mouth twice a day - Mirapex 0.25 mg by mouth at bedtime - promethazine 25 mg by mouth twice a day as needed for nausea - Zanaflex 4 mg by mouth three times a day as needed for muscle spasms PHYSICAL FINDINGS: VITALS ON ADMISSION: Blood pressure 139/68, pulse 74, respiratory rate 16, temperature 98, pulse oximetry 99% on room air. HEENT: Pupils equal round reactive to light and accommodation. NECK: Supple. No jugular. LUNGS: Clear to auscultation bilaterally. ABDOMEN: Mild tenderness to palpation. Positive bowel sounds. Soft. EXTREMITIES: Trace edema bilateral lower extremities as well as upper extremities. NEURO: Cranial nerves II-XII grossly intact. No focal deficits. LABORATORY FINDINGS: WBC 3.5, hemoglobin 9.7, hematocrit 28.8, platelet count 132, sodium 147, potassium 3.2, chloride 107, creatinine 0.63, BUN 13, fasting glucose 102, calcium 8.3, AST 19, ALT 19, troponin less than 0.02, lipase 120, total bilirubin 0.3. IMAGING: Abdominal CT positive for cholelithiasis. Suspected mild acute inflammatory changes of the gallbladder. Moderate constipation. Thickening of the wall of the bladder under distension versus mild cystitis. Abdominal ultrasound and chest x-ray are still pending. ASSESSMENT/PLAN: 1. Abdominal pain may be secondary to cholelithiasis versus chronic abdominal pain. May be related to C1 esterase deficiency. Dr. Perkins admitted the patient for surgical observation, unknown surgical plans at this time. Will continue to follow along. 2. History of C1 deficiency. The patient is normally on Berinert infusion. She received one yesterday. She follows up with Dr. Roca. 3. Hypertension. Currently controlled. Will continue the patient's amlodipine and atenolol. 4. Chronic pain. We will resume the patient's home medications of OxyContin and oxycodone. 5. Chronic constipation. Continue MiraLax, Colace. 6. History of hepatitis B and C. 7. Hypokalemia. Patient received one dose of potassium in the emergency room. We will recheck. Will also check a magnesium level. 8. History of chronic anemia. The patient is normally on iron 325 mg by mouth. Will resume. 9. Deep vein thrombosis (DVT) prophylaxis. Lovenox subcutaneously daily.
[2016-05-14] MEDS: MAGNESIUM OXIDE 400 MG TAB (MAG-OX) PO SCH (15:29)
[2016-05-14] MEDS: MOM 30ML SUSPENSION UDC PO PRN (15:29)
[2016-05-14] MEDS: PRAMIPEXOLE 0.25 MG TAB PO SCH (20:17)
[2016-05-14 22:00] VITALS: BP 123/64
[2016-05-15] VITALS (12 sets, daily range): BP systolic 111–140; BP diastolic 62–82; O2SAT 84–99
[2016-05-15] MEDS: oxyCODONE 5MG TAB PO PRN ×3 (02:07→15:36)
[2016-05-15 05:39] LABS: BASO % 0.8 % (0.0-1.0); EOS # 0.1 K/mm3 (0.0-0.50); EOS % 2.3 % (0.0-3.0); LARGE UNSTAINED CELL # 0.1 K/mm3 (0.0-0.4); LARGE UNSTAINED CELL % 2.3 % (0.0-4.0); LYMPH # 1.6 K/mm3 (1.5-4.5); LYMPH % 44.9 % (24.0-44.0); MEAN CORPUSCULAR HEMOGLOBIN 29.2 pg (27.0-33.0); MEAN CORPUSCULAR HGB CONC 33.7 g/dl (32.0-36.5); MEAN CORPUSCULAR VOLUME 86.6 fl (80.0-96.0); MONO # 0.1 K/mm3 (0.0-0.8); MONO % 3.5 % (0.0-5.0); NEUTROPHILS # 1.6 K/mm3 (1.8-7.7); NEUTROPHILS % 46.1 % (36.0-66.0); PLATELET COUNT, AUTOMATED 129 k/mm3 (150-450); RED CELL DISTRIBUTION WIDTH 13.6 % (11.5-14.5); WHITE BLOOD COUNT 3.5 K/mm3 (4.0-10.0)
[2016-05-15 05:53] LABS: ALBUMIN 3.1 GM/DL (3.2-5.2); ALBUMIN/GLOBULIN RATIO 1.07 (1.00-1.93); ALKALINE PHOSPHATASE 94 U/L (45-117); ALT/SGPT 24 U/L (12-78); ANION GAP 5 MEQ/L (8-16); AST/SGOT 23 U/L (15-37); BILIRUBIN,TOTAL 0.4 MG/DL (0.2-1.0); BLOOD UREA NITROGEN 9 MG/DL (7-18); CALCIUM LEVEL 8.1 MG/DL (8.5-10.1); CARBON DIOXIDE LEVEL 34 MEQ/L (21-32); CHLORIDE LEVEL 103 MEQ/L (98-107); CREATININE FOR GFR 0.51 MG/DL (0.55-1.02); GLOMERULAR FILTRATION RATE > 60.0 (>51); GLUCOSE, FASTING 102 MG/DL (70-105); MAGNESIUM LEVEL 1.8 MG/DL (1.8-2.4); POTASSIUM SERUM 3.7 MEQ/L (3.5-5.1); SODIUM LEVEL 142 MEQ/L (136-145)
[2016-05-15] MEDS: ENOXAPARIN 40 MG/0.4 ML SYRINGE (J1650) SC SCH (07:54)
[2016-05-15] MEDS: CALCIUM CARBONATE 500 MG CHEW U/D PO SCH ×2 (08:23→20:27)
[2016-05-15] MEDS: metroNIDAZOLE 500 MG in APPROPRIATE DILUENT 1 EA IV SCH ×3 (08:23→23:40)
[2016-05-15] MEDS: clonazePAM 1 MG TAB PO SCH ×3 (08:23→20:25)
[2016-05-15] MEDS: CETIRIZINE (ZyrTEC) 10 MG TAB PO SCH (08:24)
[2016-05-15] MEDS: FERROUS SULFATE 325MG TAB PO SCH (08:24)
[2016-05-15] MEDS: MECLIZINE 25 MG TABLET PO SCH ×3 (08:24→20:27)
[2016-05-15] MEDS: hydroCHLOROthiazide 25 MG TAB PO SCH (08:24)
[2016-05-15] MEDS: DULoxetine 30 MG CAP (CYMBALTA) PO SCH (08:24)
[2016-05-15] MEDS: ATENOLOL 50 MG TAB PO SCH ×2 (08:24→20:26)
[2016-05-15] MEDS: DOCUSATE SODIUM 100 MG CAP PO SCH ×3 (08:24→20:27)
[2016-05-15] MEDS: oxyCODONE 40 MG CR TAB PO SCH ×2 (08:25→20:26)
[2016-05-15] MEDS: NS 0.45% 1,000 ML IV SCH (08:26)
[2016-05-15] MEDS ORDERED: [UNRECOGNIZED DRUG - OTHER] IV ONE (09:00)
[2016-05-15] MEDS: AZELASTINE 137MCG NASAL SPY 30 ML (ASTELIN) SCH (09:00)
[2016-05-15] MEDS: CIPROFLOXACIN 400 MG in APPROPRIATE DILUENT 1 EA IV SCH ×2 (10:13→20:27)
[2016-05-15] MEDS ORDERED: BUPIVACAINE/EPIN 0.25% 30 ML VIAL As Ordered ONE (11:04)
[2016-05-15] MEDS ORDERED: PROPOFOL 200 MG/20 ML VIAL As Ordered ONE (11:11)
[2016-05-15] MEDS ORDERED: LIDOCAINE 2% INJ 100 MG/5 ML SDV (FOR ANES.) As Ordered ONE (11:11)
[2016-05-15] MEDS ORDERED: fentaNYL 250 MCG/5 ML INJECTION (J3010) As Ordered ONE (11:11)
[2016-05-15] MEDS ORDERED: ROCURONIUM BROMIDE 50 MG/5 ML VIAL As Ordered ONE (11:11)
[2016-05-15] MEDS ORDERED: MIDAZOLAM INJ 2 MG/2 ML VIAL (J2250) As Ordered ONE (11:12)
[2016-05-15] MEDS ORDERED: SEVOFLURANE INHAL SOLN 250 ML BTL As Ordered ONE (11:16)
--- NOTE | 2016-05-15 11:41 | IPNPDOC ---
Text Note Date of Service The patient was seen on 05/15/16 at 11:29. 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 Patient had a recent admission in 03/2016 for abdominal pain and was found to be 2/2 to exacerbation of hereditary angioedema , for which she received an additional dose of Berinert. Patient presented to the ER this time with complaints of abdominal pain and was found to have cholelithiasis and suspected inflammation of their gallbladder. She was admitted to surgical service for acute cholecystitis. Patient was seen and examined at the bedside. Patient still notes persistent abdominal pain. She noted a fever this morning. Objective: Vitals (see below) General: Lying in bed, no acute distress, AAOx3 HEENT: NC, AT CVS: RRR, +S1S2 Lungs: Fair air entry bilaterally, no wheezing / rales / rhonchi Abdomen: Soft, ND, Tenderness appreciated at the right upper quadrant and lower right and left quadrants, Hypoactive BS Extremities: No lower extremity edema, no calf tenderness Assessment and plan: 1. Abdominal pain - possibly 2/2 acute cholecystitis and exacerbation of angioedema, less likely constipation - presented to ER with complaints of abdominal pain, similar to prior episodes - physical reveals right upper quadrant tenderness - US abdomen 04/14: reveals cholelithiasis and suspected inflammation of gallbladder - CT abdomen 04/14: Cholelithiasis, suspect mild acute inflammatory changes of the gallbladder, moderate constipation - Admitted to surgical service - Follows with Dr. Roca as an outpatient for immunology - will check Functional C1 esterase inhibitor level - pending - c/w Ciprofloxacin and Flagyl (Day #2) - Will receive Berinert infusion this morning prior to surgery today 2. Chronic pain - likely 2/2 degenerative disease - continue with home pain medication regimen - will continue to monitor breathing status - will transfer to PCU for continuous pulse oximetry - will need nocturnal oximetry study 3. s/p Hypokalemia - repleted 4. s/p Hypernatremia - s/p LR and 1/2 NS - will stop IV fluids 5. Normocytic anemia - Hg appears to be at baseline and stable - will follow 6. Leukopenia, chronic - will monitor for now 7. Hepatitis B and C - no elevation in liver enzymes - continue to follow as outpatient 8. HTN - continue with home medications (Amlodipine and Atenolol) with holding parameters 9. Psoriasis - c/w home medications 10. History of left breast cancer 11. Osteoporosis 12. GERD - c/w protonix 13. DVT prophylaxis - c/w lovenox VS,Fishbone, I+O VS, Fishbone, I+O Laboratory Tests 05/15/16 05:15 Calcium Level 8.1 L, Aspartate Amino Transf (AST/SGOT) 23, Alanine Aminotransferase (ALT/SGPT) 24, Alkaline Phosphatase 94, Total Bilirubin 0.4, Total Protein 6.0 L, Albumin 3.1 L, Red Blood Count 3.14 L, Mean Corpuscular Volume 86.6, Mean Corpuscular Hemoglobin 29.2, Mean Corpuscular Hemoglobin Concent 33.7, Red Cell Distribution Width 13.6, Neutrophils (%) (Auto) 46.1, Lymphocytes (%) (Auto) 44.9 H, Monocytes (%) (Auto) 3.5, Eosinophils (%) (Auto) 2.3, Basophils (%) (Auto) 0.8, Neutrophils # (Auto) 1.6 L, Lymphocytes # (Auto) 1.6, Monocytes # (Auto) 0.1, Eosinophils # (Auto) 0.1, Basophils # (Auto) 0.0 Vital Signs Date Time Temp Pulse Resp B/P Pulse Ox O2 Delivery O2 Flow Rate FiO2 05/15/16 10:13 16 05/15/16 10:00 100.1 77 130/70 88 Room Air I&O- Last 24 Hours up to 6 AM 05/15/16 05:59 Intake Total 2080 ml Output Total 1000 ml Balance 1080 ml LUCIA NUNEZ MD May 15, 2016 11:41
[2016-05-15] MEDS ORDERED: ePHEDrine SULFATE 25 MG/5 ML(5MG/ML) SYRINGE As Ordered ONE ×2 (11:43→11:58)
[2016-05-15] MEDS ORDERED: PHENYLephrine HCL 500 MCG/5 ML (100MCG/ML) SYRINGE (J2370) As Ordered ONE (12:04)
[2016-05-15] MEDS ORDERED: BUPIVACAINE/EPIN 0.25% 30 ML VIAL XX ONE ×2 (12:27→12:45)
[2016-05-15] MEDS ORDERED: NEOSTIGMINE 1MG/ML 5 ML SYRINGE (J2710) As Ordered ONE (12:28)
[2016-05-15] MEDS ORDERED: ONDANSETRON 4MG/2ML VIAL (J2405) As Ordered ONE (12:28)
[2016-05-15] MEDS ORDERED: dexameTHASONE 4 MG/ML 1ML VIAL (J1100) As Ordered ONE (12:28)
[2016-05-15] MEDS ORDERED: GLYCOPYRROLATE INJ 0.2 MG/ML 2 ML VIAL As Ordered ONE (12:28)
[2016-05-15] MEDS ORDERED: METOCLOPRAMIDE INJ 10MG/2ML VIAL (J2765) As Ordered ONE (12:37)
[2016-05-15] MEDS ORDERED: HYDROmorphone HCL 2 MG/ML 1ML VIAL (J1170) As Ordered ONE (13:16)
[2016-05-15] MEDS ORDERED: HYDROmorphone HCL 1 MG/ML SYRINGE (J1170) IV PRN (14:00)
[2016-05-15] MEDS ORDERED: ONDANSETRON 4MG/2ML VIAL (J2405) IV PRN ×2 (14:00→15:30)
[2016-05-15] MEDS ORDERED: fentaNYL 100 MCG/2 ML INJECTION (J3010) IV PRN (14:00)
[2016-05-15] MEDS ORDERED: METOCLOPRAMIDE INJ 10MG/2ML VIAL (J2765) IV PRN ×2 (14:00→15:30)
[2016-05-15] MEDS ORDERED: LR 1,000 ML IV SCH (14:00)
[2016-05-15] MEDS: MAGNESIUM OXIDE 400 MG TAB (MAG-OX) PO SCH (16:41)
[2016-05-15] MEDS: PANTOPRAZOLE 20 MG TAB PO SCH (16:42)
[2016-05-15] MEDS: amLODIPine 10 MG TAB PO SCH (16:42)
[2016-05-15] MEDS: LR 1,000 ML IV SCH ×2 (17:57→23:15)
[2016-05-15] MEDS: PRAMIPEXOLE 0.25 MG TAB PO SCH (20:27)
[2016-05-16] VITALS (12 sets, daily range): BP systolic 99–131; BP diastolic 57–77; O2SAT 85–95
[2016-05-16] MEDS: ACETAMINOPHEN TAB 650MG DOSE (2X325MG) PO PRN (00:56)
[2016-05-16] MEDS: oxyCODONE 5MG TAB PO PRN ×3 (00:57→18:08)
[2016-05-16] MEDS: IBUPROFEN 600 MG TAB PO PRN (02:18)
--- NOTE | 2016-05-16 05:57 | EDDOCDS ---
Physician Documentation [facility] Name: Maribell Herrera Age: 55 yrs Sex: Female : 1960 Arrival Date: 05/13/2016 Time: 22:31 Bed 10 Private MD: Kamron Garcia PA Disposition: 05/14/16 04:07 Hospitalization ordered by Jake Perkins for Inpatient Admission. Preliminary diagnosis is Cholecystitis, unspecified. - Bed requested for 4 [place]. - Status is Inpatient Admission. sls1 - Condition is Stable. - Problem is new. - Symptoms are unchanged. Historical: - Allergies: Aspirin; GABAPENTIN; Codeine Sulfate; Morphine; PENICILLINS; PENTAZOCINE; pregabalin; Prochlorperazine Maleate; Toradol; - Home Meds: 1. amlodipine 10 mg Oral tab 1 tab once daily 2. atenolol 50 mg Oral tab 1 tab 2 times per day 3. Belsomra oral 1 tab nightly 4. calcium carbonate 1000mg Oral cap as needed 5. Berinert 500 unit (10 mL) intravenous kit 2000 units as needed 6. promethazine 25 mg Oral tab 1 tab twice daily as needed as needed 7. Prilosec 40 mg Oral cpDR 1 cap once daily 8. pramipexole 0.125 mg oral tab 9. oxycodone 30 mg Oral tab 1 tab every 6 hours (ran out yesterday) 10. Mirapex 0.25 mg Oral tab 1 tab daily 11. Miralax 17 gram Oral pwpk 1 packet as needed 12. magnesium oxide 400 mg Oral tab daily 13. hydrochlorothiazide 50 mg Oral tab 1 tab once daily 14. Klor-Con 10 10 mEq Oral TbER 1 tab 2 times per day 15. ferrous sulfate 325 mg (65 mg iron) Oral tab as needed 16. Cymbalta 30 mg Oral cpDR 1 cap once daily 17. Colace 100 mg oral cap 1 cap three times a day 18. clonazepam 2 mg Oral tab 1 tab 3 times per day 19. cetirizine 10 mg oral tab 1 tab once daily - PMHx: angioedema; Cancer, Breast - Left; Degenerative disc disease; Hepatitis B; Hepatitis C; Hypertension; neuropathy; Osteoporosis; - Social history: Smoking status: Patient uses tobacco products, current some day smoker. Race: White, Ethnicity: Not or No barriers to communication noted, Preferred Language: Azeri. - Family history: Not pertinent. - : The pt / caregiver states he / she is not on anticoagulants. Home medication list is obtained from the patient. - Exposure Risk Screening:: None identified. Vital Signs: 05/13 22:42 BP 139 / 68 (auto/); cf2 22:43 Pulse 74 MON; Pulse Ox 99% ; cf2 22:43 BP 131 / 72; cf2 22:49 BP 139 / 68; Pulse 75; Resp 16; Temp 98.0(O); Pulse Ox 98% on R/A; Weight 68.04 kg / kas2 150 lbs; Height 5 ft. 0 in. (152.40 cm); Pain 4/10; 23:00 Pulse 76 MON; Pulse Ox 97% ; cf2 05/14 00:40 Pulse 80 MON; Pulse Ox 94% ; cf2 00:55 Pulse 80 MON; Pulse Ox 94% ; cf2 01:36 Pulse 78 MON; Pulse Ox 96% ; cf2 02:20 BP 129 / 72; cf2 04:48 BP 131 / 76; Pulse 80; Resp 18; Temp 98.0; Pulse Ox 94% on R/A; Pain 4/10; cf2 05/13 22:49 Body Mass Index 29.29 (68.04 kg, 152.40 cm) kas2 MDM: 05/13 23:08 IV Saline Lock ordered. br1 23:08 Oil Lease Buyer/Pulse Ox/q 30 min VS ordered. br1 23:09 CBC with Diff Ordered. EDMS 23:09 BMP Ordered. EDMS 23:09 Liver Profile Ordered. EDMS 23:09 Lipase Ordered. EDMS 23:09 Troponin Ordered. EDMS 23:09 -Influenza A&B Rapid Antigen - Nose Ordered. EDMS 23:10 Chest, 2 View (pa\E\lat) Ordered. EDMS 23:10 ECG WITH READING ER PHYS+CARDIAG ordered. EDMS 23:11 NS 0.9% 1000 ml IV at 100 mL/hr continuous ordered. br1 23:11 Ondansetron 4 mg IVP once ordered. br1 23:12 Dilaudid - HYDROmorphone 0.5 mg IVP once ordered. br1 23:51 [facility] Payment Agreement was scanned into [employer] and attached to record. scot 23:51 Financial registration complete. scot 05/14 00:16 Acetaminophen Tablet 650 mg PO once ordered. cs11 00:38 Dilaudid - HYDROmorphone 0.5 mg IVP once ordered. cs11 00:58 CBC with Diff Reviewed. cs11 00:58 BMP Reviewed. cs11 00:58 Liver Profile Reviewed. cs11 00:58 Lipase Reviewed. cs11 00:58 Troponin Reviewed. cs11 00:58 -Influenza A&B Rapid Antigen - Nose Reviewed. cs11 00:59 Potassium Chloride Extended Release Tablet 40 mEq PO once ordered. cs11 01:36 CT ABD & PELVIS W/O CONTRAST Ordered. EDMS 02:17 Ultrasound Abd Limited Ordered. EDMS 02:58 CT ABD & PELVIS W/O CONTRAST Reviewed. cs11 03:07 Dilaudid - HYDROmorphone 1 mg IVP once ordered. cs11 04:03 BED REQUEST+ADM ordered. EDMS 04:05 Admission Orders was scanned into [employer] and attached to record. ar3 10:04 T-Sheet-- Draft Copy was scanned into [employer] and attached to record. gb 10:05 ECG/EKG was scanned into [employer] and attached to record. gb 10:05 Radiology Report was scanned into [employer] and attached to record. gb Administered Medications: Discontinued: NS 0.9% 1000 ml IV at 100 mL/hr continuous 05/13 23:45 Drug: Ondansetron 4 mg [ondansetron HCl 2 mg/mL intravenous solution (2 mL)] Route: cf2 IVP; Site: Implantable Access Device; 05/14 01:09 Follow up: Response: No significant change. cf2 05/13 23:46 Drug: NS 0.9% 1000 ml [sodium chloride 0.9 % intravenous solution] Route: IV; Rate: 100 cf2 mL/hr; Site: Implantable Access Device; 05/14 01:10 Follow up: Response: No significant change. cf2 05/13 23:46 Drug: Dilaudid - HYDROmorphone 0.5 mg [hydromorphone 1 mg/mL injection syringe (0.5 cf2 mL)] Route: IVP; Site: Implantable Access Device; 05/14 01:09 Follow up: Response: No significant change. cf2 00:48 Not Given (Patient Refused): Acetaminophen Tablet 650 mg PO once cf2 00:50 Drug: Dilaudid - HYDROmorphone 0.5 mg [hydromorphone 1 mg/mL injection syringe (0.5 cf2 mL)] Route: IVP; Site: Implantable Access Device; 01:10 Follow up: Response: No significant change. cf2 02:00 Drug: Potassium Chloride 40 mEq [potassium chloride ER 10 mEq tablet,extended release cf2 (4 tabs)] Route: PO; 03:08 Follow up: Response: No Adverse Reaction cf2 03:15 Drug: Dilaudid - HYDROmorphone 1 mg [hydromorphone 1 mg/mL injection syringe (1 mL)] cf2 Route: IVP; Site: Implantable Access Device; 03:32 Follow up: Response: Pain is decreased cf2 Signatures: Dispatcher [employer] EDMS Jessica Summers, Reg Reg gb Daryl Miller MD MD br1 Brittney Croft, COPING MACHINE OPERATOR COPING MACHINE OPERATOR ar3 Marilee Murphy RN RN sls1 Malcolm Colvin, DO cs11 Arel, Gisel Cooper RN RN [facility] Maribell Callahan RN RN cf2 The chart was reviewed and I authenticate all verbal orders and agree with the evaluation and treatment provided.Corrections: (The following items were deleted from the chart) 01:36 12 23:50 CT ABD & PELVIS WITH CONTRAST+CT ordered. EDMS EDMS Attachments: 23:51 [facility] Payment Agreement 05/14 04:05 Admission Orders ar3 10:04 T-Sheet-- Draft Copy gb 10:05 ECG/EKG gb Chart Complete MTDD
--- NOTE | 2016-05-16 05:57 | EDDOCDS ---
Nurse's Notes [facility] Name: Maribell Herrera Age: 55 yrs Sex: Female : 1960 Arrival Date: 05/13/2016 Time: 22:31 Bed 10 Private MD: Kamron Garcia PA Diagnosis: Cholecystitis, unspecified Presentation: 05/13 22:45 Presenting complaint: Patient states: Patient states increased abdominal pain after kas2 Berinert infusion this evening. Patient also states URI symptoms for the past few days. EMS states: Stable transport. Adult Sepsis Screening: The patient does not have new or worsening altered mentation. Patient's respiratory rate is less than 22. Systolic blood pressure is greater than 100. Patient has a qSOFA score of 0- Negative Sepsis Screen. Suicide/Homicide risk assessment- the patient denies having any suicidal and/or homicidal ideations and does not present with any other emotional, behavioral or mental health complaints. Status: Patient is not a guest service host or dependent. Transition of care: patient was not received from another setting of care. 22:45 Acuity: ADIS Level 3 [facility] 22:45 Acuity: ADIS Level 3 [facility] 22:45 Method Of Arrival: Ambulance [facility] Triage Assessment: 22:49 General: Appears in no apparent distress, comfortable, Behavior is appropriate for age, kas2 cooperative. Pain: Denies pain. Pt Declines HIV testing. EENT: Reports nasal congestion nasal discharge Sore throat. Cardiovascular: No deficits noted. Respiratory: Onset: The symptoms/episode began/occurred gradually, No deficits noted. GI: No deficits noted. : No deficits noted. Historical: - Allergies: Aspirin; GABAPENTIN; Codeine Sulfate; Morphine; PENICILLINS; PENTAZOCINE; pregabalin; Prochlorperazine Maleate; Toradol; - Home Meds: 1. amlodipine 10 mg Oral tab 1 tab once daily 2. atenolol 50 mg Oral tab 1 tab 2 times per day 3. Belsomra oral 1 tab nightly 4. calcium carbonate 1000mg Oral cap as needed 5. Berinert 500 unit (10 mL) intravenous kit 2000 units as needed 6. promethazine 25 mg Oral tab 1 tab twice daily as needed as needed 7. Prilosec 40 mg Oral cpDR 1 cap once daily 8. pramipexole 0.125 mg oral tab 9. oxycodone 30 mg Oral tab 1 tab every 6 hours (ran out yesterday) 10. Mirapex 0.25 mg Oral tab 1 tab daily 11. Miralax 17 gram Oral pwpk 1 packet as needed 12. magnesium oxide 400 mg Oral tab daily 13. hydrochlorothiazide 50 mg Oral tab 1 tab once daily 14. Klor-Con 10 10 mEq Oral TbER 1 tab 2 times per day 15. ferrous sulfate 325 mg (65 mg iron) Oral tab as needed 16. Cymbalta 30 mg Oral cpDR 1 cap once daily 17. Colace 100 mg oral cap 1 cap three times a day 18. clonazepam 2 mg Oral tab 1 tab 3 times per day 19. cetirizine 10 mg oral tab 1 tab once daily - PMHx: angioedema; Cancer, Breast - Left; Degenerative disc disease; Hepatitis B; Hepatitis C; Hypertension; neuropathy; Osteoporosis; - Social history: Smoking status: Patient uses tobacco products, current some day smoker. Race: White, Ethnicity: Not or No barriers to communication noted, Preferred Language: Tunisian. - Family history: Not pertinent. - : The pt / caregiver states he / she is not on anticoagulants. Home medication list is obtained from the patient. - Exposure Risk Screening:: None identified. Screenin/22 03:33 Screening information is obtained from the patient. Fall risk: No risks identified. cf2 Assistance ADL's: requires no assistance with activities of daily living. Abuse/DV Screen: The patient / caregiver reports he/she is: not in a situation that causes fear, pain or injury. Nutritional screening: No deficits noted. Advance Directives: Further advance directive information is declined. home support is adequate. Assessment: 00:06 General: Spoke with provider regarding pt request for pain medication, provider into [facility] speak with pt. 02:36 Adult Sepsis Screening: The patient does not have new or worsening altered mentation. cf2 Patient's respiratory rate is less than 22. Systolic blood pressure is greater than 100. Patient has a qSOFA score of 0- Negative Sepsis Screen. General: Appears comfortable, Behavior is appropriate for age, cooperative. Pain: Denies pain. Neurological: No deficits noted. EENT: No deficits noted. Cardiovascular: No deficits noted. Cardiovascular: Rhythm is sinus rhythm Chest pain is denied. Respiratory: No deficits noted. Airway is patent via trache Respiratory effort is even, unlabored, Breath sounds are clear bilaterally. GI: No deficits noted. : No deficits noted. Derm: No deficits noted. Musculoskeletal: No deficits noted. Injury Description: No known injury. 03:32 General: Appears. cf2 04:48 Reassessment: Patient states symptoms have improved. cf2 Vital Signs: 05/13 22:42 BP 139 / 68 (auto/); cf2 22:43 Pulse 74 MON; Pulse Ox 99% ; cf2 22:43 BP 131 / 72; cf2 22:49 BP 139 / 68; Pulse 75; Resp 16; Temp 98.0(O); Pulse Ox 98% on R/A; Weight 68.04 kg; [facility] Height 5 ft. 0 in. (152.40 cm); Pain 4/10; 23:00 Pulse 76 MON; Pulse Ox 97% ; cf2 05/14 00:40 Pulse 80 MON; Pulse Ox 94% ; cf2 00:55 Pulse 80 MON; Pulse Ox 94% ; cf2 01:36 Pulse 78 MON; Pulse Ox 96% ; cf2 02:20 BP 129 / 72; cf2 04:48 BP 131 / 76; Pulse 80; Resp 18; Temp 98.0; Pulse Ox 94% on R/A; Pain 4/10; cf2 05/13 22:49 Body Mass Index 29.29 (68.04 kg, 152.40 cm) [facility] Vitals: 05/13 22:49 Log In Time N/A - ambulance arrival. [facility] ED Course: 22:32 Patient visited by Brittney Croft PCA. ar3 22:32 Patient moved to Waiting ar3 22:32 Patient moved to 10 ar3 22:33 Kamron Garcia is Private Physician. ar3 22:38 Malcolm Colvin DO is Attending Physician. cs11 22:38 Patient visited by Malcolm Colvin DO. cs11 22:45 Gisel Hernandez RN is Primary Nurse. kas2 22:45 Patient visited by Gisel Hernandez RN. kas2 22:46 Triage Initiated [facility] 22:58 Primary Nurse role handed off by Gisel Hernandez,CORKY cf2 22:58 Maribell Callahan,CORKY is Primary Nurse. cf2 22:58 Patient visited by Maribell Callahan,CORKY. cf2 22:59 Daryl Miller MD is Attending Physician. br1 23:29 Patient visited by Sebastian Mccauley. jp4 23:29 EKG done. (by ED staff). Reviewed by Daryl Miller MD. jp4 23:45 Patient visited by Maribell Callahan,RN. cf2 23:46 -Influenza A&B Rapid Antigen - Nose Sent. cf2 23:46 Troponin Sent. cf2 23:46 Lipase Sent. cf2 23:46 Liver Profile Sent. cf2 23:46 BMP Sent. cf2 23:46 CBC with Diff Sent. cf2 23:51 [facility] [place] was scanned into [employer] and attached to record. lja 23:58 Attending Physician role handed off by Daryl Miller MD cs11 23:58 Malcolm Colvin DO is Attending Physician. cs11 23:58 Patient moved to OBSERVATION cs11 05/14 00:00 Accessed using # 22 Lala needle sterile technique, per hospital protocol. Inf[employer] cf2 in patient's Left chest wall. No procedures done that require assistance. 02:33 Patient moved to Ultrasound br3 02:51 CT ABD & PELVIS W/O CONTRAST Returned. EDMS 02:52 Patient moved to 10 br3 03:07 Patient visited by Maribell Callahan,CORKY. cf2 03:33 The patient / caregiver is instructed regarding the plan of care and ED course. Patient cf2 has correct armband on for positive identification. Placed in gown. Bed in low position. Call light in reach. Side rails up X 1. Side rails up X2. delivery merchandiser on. Pulse ox on. NIBP on. Door closed. Noise minimized. Visitors limited. Lights dimmed. Moved to private room. Cool cloth applied. Verbal reassurance given. Warm blanket given. Pillow given. Head of bed elevated. 03:35 Patient visited by Kristopher Whalen PCA. kb5 04:05 Admission Orders was scanned into [employer] and attached to record. ar3 04:07 Jake Perkins DO is Hospitalizing Provider. cs11 10:04 T-Sheet-- Draft Copy was scanned into [employer] and attached to record. gb 10:05 ECG/EKG was scanned into [employer] and attached to record. gb 10:05 Radiology Report was scanned into [employer] and attached to record. gb Administered Medications: Discontinued: NS 0.9% 1000 ml IV at 100 mL/hr continuous 05/13 23:45 Drug: Ondansetron 4 mg [ondansetron HCl 2 mg/mL intravenous solution (2 mL)] Route: cf2 IVP; Site: Implantable Access Device; 05/14 01:09 Follow up: Response: No significant change. cf2 05/13 23:46 Drug: NS 0.9% 1000 ml [sodium chloride 0.9 % intravenous solution] Route: IV; Rate: 100 cf2 mL/hr; Site: Implantable Access Device; 05/14 01:10 Follow up: Response: No significant change. cf2 05/13 23:46 Drug: Dilaudid - HYDROmorphone 0.5 mg [hydromorphone 1 mg/mL injection syringe (0.5 cf2 mL)] Route: IVP; Site: Implantable Access Device; 05/14 01:09 Follow up: Response: No significant change. cf2 00:48 Not Given (Patient Refused): Acetaminophen Tablet 650 mg PO once cf2 00:50 Drug: Dilaudid - HYDROmorphone 0.5 mg [hydromorphone 1 mg/mL injection syringe (0.5 cf2 mL)] Route: IVP; Site: Implantable Access Device; 01:10 Follow up: Response: No significant change. cf2 02:00 Drug: Potassium Chloride 40 mEq [potassium chloride ER 10 mEq tablet,extended release cf2 (4 tabs)] Route: PO; 03:08 Follow up: Response: No Adverse Reaction cf2 03:15 Drug: Dilaudid - HYDROmorphone 1 mg [hydromorphone 1 mg/mL injection syringe (1 mL)] cf2 Route: IVP; Site: Implantable Access Device; 03:32 Follow up: Response: Pain is decreased cf2 Order Results: Lab Order: CBC with Diff; SPEC'M 05/13/16 23:31 Test: WHITE BLOOD COUNT; Value: 3.5; Range: 4.0-10.0; Abnormal: Below low normal; Units: K/mm3; Status: F Test: RED BLOOD COUNT; Value: 3.33; Range: 4.00-5.40; Abnormal: Below low normal; Units: M/mm3; Status: F Test: HEMOGLOBIN; Value: 9.7; Range: 12.0-16.0; Abnormal: Below low normal; Units: g/dl; Status: F Test: HEMATOCRIT; Value: 28.8; Range: 36.0-47.0; Abnormal: Below low normal; Units: %; Status: F Test: MEAN CORPUSCULAR VOLUME; Value: 86.4; Range: 80.0-96.0; Units: fl; Status: F Test: MEAN CORPUSCULAR HEMOGLOBIN; Value: 29.1; Range: 27.0-33.0; Units: pg; Status: F Test: MEAN CORPUSCULAR HGB CONC; Value: 33.7; Range: 32.0-36.5; Units: g/dl; Status: F Test: RED CELL DISTRIBUTION WIDTH; Value: 13.8; Range: 11.5-14.5; Units: %; Status: F Test: PLATELET COUNT, AUTOMATED; Value: 132; Range: 150-450; Abnormal: Below low normal; Units: k/mm3; Status: F Test: NEUTROPHILS %; Value: 45.2; Range: 36.0-66.0; Units: %; Status: F Test: LYMPH %; Value: 44.3; Range: 24.0-44.0; Abnormal: Above high normal; Units: %; Status: F Test: MONO %; Value: 4.3; Range: 0.0-5.0; Units: %; Status: F Test: EOS %; Value: 3.2; Range: 0.0-3.0; Abnormal: Above high normal; Units: %; Status: F Test: BASO %; Value: 0.5; Range: 0.0-1.0; Units: %; Status: F Test: LARGE UNSTAINED CELL %; Value: 2.4; Range: 0.0-4.0; Units: %; Status: F Test: NEUTROPHILS #; Value: 1.6; Range: 1.8-7.7; Abnormal: Below low normal; Units: K/mm3; Status: F Test: LYMPH #; Value: 1.5; Range: 1.5-4.5; Units: K/mm3; Status: F Test: MONO #; Value: 0.2; Range: 0.0-0.8; Units: K/mm3; Status: F Test: EOS #; Value: 0.1; Range: 0.0-0.50; Units: K/mm3; Status: F Test: BASO #; Value: 0.0; Range: 0.0-0.2; Units: K/mm3; Status: F Test: LARGE UNSTAINED CELL #; Value: 0.1; Range: 0.0-0.4; Units: K/mm3; Status: F Lab Order: BMP; SPEC'M 05/13/16 23:31 Test: GLUCOSE, FASTING; Value: 102; Range: 70-105; Units: MG/DL; Status: F Test: BLOOD UREA NITROGEN; Value: 13; Range: 7-18; Units: MG/DL; Status: F Test: CREATININE FOR GFR; Value: 0.63; Range: 0.55-1.02; Units: MG/DL; Status: F Test: GLOMERULAR FILTRATION RATE; Value: > 60.0; Range: >51; Status: F Test: SODIUM LEVEL; Value: 147; Range: 136-145; Abnormal: Above high normal; Units: MEQ/L; Status: F Test: POTASSIUM SERUM; Value: 3.2; Range: 3.5-5.1; Abnormal: Below low normal; Units: MEQ/L; Status: F Test: CHLORIDE LEVEL; Value: 107; Range: 98-107; Units: MEQ/L; Status: F Test: CARBON DIOXIDE LEVEL; Value: 35; Range: 21-32; Abnormal: Above high normal; Units: MEQ/L; Status: F Test: ANION GAP; Value: 5; Range: 8-16; Abnormal: Below low normal; Units: MEQ/L; Status: F Test: CALCIUM LEVEL; Value: 8.3; Range: 8.5-10.1; Abnormal: Below low normal; Units: MG/DL; Status: F Test Note: ; Units are mL/min/1.73 m2 Chronic Kidney Disease Staging per NKF: Stage I & II GFR >=60 Normal to Mildly Decreased Stage III GFR 30-59 Moderately Decreased Stage IV GFR 15-29 Severely Decreased Stage V GFR <15 Very Little GFR Left ESRD GFR <15 on NAPHTHALENE STILL OPERATOR Lab Order: Liver Profile; SPEC'M 05/13/16 23:31 Test: AST/SGOT; Value: 19; Range: 15-37; Units: U/L; Status: F Test: ALT/SGPT; Value: 19; Range: 12-78; Units: U/L; Status: F Test: ALKALINE PHOSPHATASE; Value: 98; Range: 45-117; Units: U/L; Status: F Test: BILIRUBIN,TOTAL; Value: 0.3; Range: 0.2-1.0; Units: MG/DL; Status: F Test: BILIRUBIN,DIRECT; Value: 0.1; Range: 0.0-0.2; Units: MG/DL; Status: F Test: TOTAL PROTEIN; Value: 6.6; Range: 6.4-8.2; Units: GM/DL; Status: F Test: ALBUMIN; Value: 3.2; Range: 3.2-5.2; Units: GM/DL; Status: F Test: ALBUMIN/GLOBULIN RATIO; Value: 0.94; Range: 1.00-1.93; Abnormal: Below low normal; Status: F Lab Order: Lipase; SPEC'M 05/13/16 23:31 Test: LIPASE; Value: 120; Range: 73-393; Units: U/L; Status: F Lab Order: Troponin; SPEC'M 05/13/16 23:31 Test: TROPONIN I; Value: < 0.02; Range: < 0.10; Units: NG/ML; Status: F Test Note: ; Troponin I Reference Interval for Siemens iCrossing LOCI: 99th Percentile= 0.00-0.045 ng/ml Risk Stratification: <= 0.10 ng/ml Decreased Risk for Adverse Clinical Events. 0.10-1.50 ng/ml Increased Risk for Adverse Clinical Events. Evaluation of additional criterion and/or repeat testing in 2-6 hours is suggested to rule out myocardial damage. >= 1.50 ng/ml Indicative of Myocardial Injury. Lab Order: -Influenza A&B Rapid Antigen - Nose; SPEC'M 05/13/16 23:30 Test: INFLUENZA A RAPID SCR by ICA; Value: INFLUENZA A RESULTS NEGATIVE; Status: F Test: INFLUENZA A RAPID SCR by ICA; Value: Comments:; Status: F Test: INFLUENZA B RAPID SCR by ICA; Value: INFLUENZA B RESULTS NEGATIVE; Status: F Test Note: ; The Influenza test is a direct rapid immunoassay for the qualitative detection of Influenza viral antigen. Cell culture (Viral Culture) testing should be considered to confirm NEGATIVE results and to assist in detecting other viruses that can provide similar clinical symptoms. Please contact the lab within 24 hours ([phone]) if confirmatory testing is desired. Radiology Order: CT ABD & PELVIS W/O CONTRAST Test: CT ABD & PELVIS W/O CONTRAST REASON FOR EXAMINATION: Abdomen Pain; ; CLINICAL HISTORY: Abdominal pain.; TECHNIQUE: Multiple axial, sagittal and coronal CT images were obtained through the abdomen and pelvi; s without administration of IV contrast material. Patient ingested oral contrast.; COMMENTS:; Moderate large bowel fecal stasis.; The liver is of uniform attenuation without mass or defect. There is no intra or extrahepatic biliary; ductal dilatation. The spleen is normal. Impacted gallstone in the neck of the gallbladder which is; distended. Diffuse thickening of the wall of the gallbladder. The pancreas is of normal contour and a; ttenuation characteristics. 3.5 cm right adrenal mass.; The kidneys are normal in size, shape and configuration. No renal or ureteral calculi are identified.; There is no hydroureter or hydronephrosis.; There is no evidence for appendicitis. There is no bowel wall thickening. No evidence for small or la; rge bowel obstruction. There is no evidence of abdominal ascites or lymphadenopathy.; There is no evidence of intrinsic or extrinsic bladder mass. Diffuse thickening of the wall of the bl; adder. There is no pelvic ascites or lymphadenopathy.; Images of the lung bases show no evidence of pleural or parenchymal mass. Bilateral basilar atelectat; ic pulmonary changes. There are no pleural effusions.; The bony structures are free of lytic or blastic lesions. Multilevel degenerative changes are seen in; volving the thoracolumbar spine.; Scattered calcifications are seen involving the aorta and major branches compatible with atherosclero; sis.; IMPRESSION:; Cholelithiasis.; Suspect mild acute inflammatory changes of the gallbladder.; Moderate constipation.; Thickening of the wall of the bladder. Underdistention versus mild cystitis.; Thank you for your kind referral of this patient.; ; Outcome: 04:07 Decision to Hospitalize by Provider. cs11 04:48 Discharge Assessment: Patient awake, alert and oriented x 3. No cognitive and/or cf2 functional deficits noted. Patient verbalized understanding of disposition instructions. Patient awake and alert. Oriented to person, place and time. patient administered narcotics - yes. Patient was admitted to the hospital or transferred to another facility. The following High Risk Discharge criteria are identified: None. Admitted to Med/Surg accompanied by tech. Condition: stable. CT Study completed. Ultrasound Study completed. Property :Personal belongings accompany Pt. 04:56 Patient left the ED. sls1 Signatures: Dispatcher [employer] EDMS Jessica Summers, Reg Reg gb Kristopher Whalen, CONVEYOR WEIGHER OPERATOR CONVEYOR WEIGHER OPERATOR kb5 Daryl iMller MD MD br1 Deandra De La Rosa br3 Brittney Croft, CONVEYOR WEIGHER OPERATOR CONVEYOR WEIGHER OPERATOR ar3 Marilee Murphy, RN RN sls1 Malcolm Colvin, DO cs11 Sebastian Mccauley jp4 Claudia Birch Kim, RN RN kas2 Maribell CallahanRN RN cf2 Chart Complete [facility]
--- NOTE | 2016-05-16 05:57 | EDDOCDS ---
Physician Documentation [facility] Name: Maribell Herrera Age: 55 yrs Sex: Female : 1960 Arrival Date: 05/13/2016 Time: 22:31 Bed 10 Private MD: Kamron Garcia PA Disposition: 05/14/16 04:07 Hospitalization ordered by Jake Perkins for Inpatient Admission. Preliminary diagnosis is Cholecystitis, unspecified. - Bed requested for 4 Patterson. - Status is Inpatient Admission. sls1 - Condition is Stable. - Problem is new. - Symptoms are unchanged. Historical: - Allergies: Aspirin; GABAPENTIN; Codeine Sulfate; Morphine; PENICILLINS; PENTAZOCINE; pregabalin; Prochlorperazine Maleate; Toradol; - Home Meds: 1. amlodipine 10 mg Oral tab 1 tab once daily 2. atenolol 50 mg Oral tab 1 tab 2 times per day 3. Belsomra oral 1 tab nightly 4. calcium carbonate 1000mg Oral cap as needed 5. Berinert 500 unit (10 mL) intravenous kit 2000 units as needed 6. promethazine 25 mg Oral tab 1 tab twice daily as needed as needed 7. Prilosec 40 mg Oral cpDR 1 cap once daily 8. pramipexole 0.125 mg oral tab 9. oxycodone 30 mg Oral tab 1 tab every 6 hours (ran out yesterday) 10. Mirapex 0.25 mg Oral tab 1 tab daily 11. Miralax 17 gram Oral pwpk 1 packet as needed 12. magnesium oxide 400 mg Oral tab daily 13. hydrochlorothiazide 50 mg Oral tab 1 tab once daily 14. Klor-Con 10 10 mEq Oral TbER 1 tab 2 times per day 15. ferrous sulfate 325 mg (65 mg iron) Oral tab as needed 16. Cymbalta 30 mg Oral cpDR 1 cap once daily 17. Colace 100 mg oral cap 1 cap three times a day 18. clonazepam 2 mg Oral tab 1 tab 3 times per day 19. cetirizine 10 mg oral tab 1 tab once daily - PMHx: angioedema; Cancer, Breast - Left; Degenerative disc disease; Hepatitis B; Hepatitis C; Hypertension; neuropathy; Osteoporosis; - Social history: Smoking status: Patient uses tobacco products, current some day smoker. Race: White, Ethnicity: Not or No barriers to communication noted, Preferred Language: Indonesian. - Family history: Not pertinent. - : The pt / caregiver states he / she is not on anticoagulants. Home medication list is obtained from the patient. - Exposure Risk Screening:: None identified. Vital Signs: 05/13 22:42 BP 139 / 68 (auto/); cf2 22:43 Pulse 74 MON; Pulse Ox 99% ; cf2 22:43 BP 131 / 72; cf2 22:49 BP 139 / 68; Pulse 75; Resp 16; Temp 98.0(O); Pulse Ox 98% on R/A; Weight 68.04 kg / kas2 150 lbs; Height 5 ft. 0 in. (152.40 cm); Pain 4/10; 23:00 Pulse 76 MON; Pulse Ox 97% ; cf2 05/14 00:40 Pulse 80 MON; Pulse Ox 94% ; cf2 00:55 Pulse 80 MON; Pulse Ox 94% ; cf2 01:36 Pulse 78 MON; Pulse Ox 96% ; cf2 02:20 BP 129 / 72; cf2 04:48 BP 131 / 76; Pulse 80; Resp 18; Temp 98.0; Pulse Ox 94% on R/A; Pain 4/10; cf2 05/13 22:49 Body Mass Index 29.29 (68.04 kg, 152.40 cm) kas2 MDM: 05/13 23:08 IV Saline Lock ordered. br1 23:08 Solution Strategist/Pulse Ox/q 30 min VS ordered. br1 23:09 CBC with Diff Ordered. EDMS 23:09 BMP Ordered. EDMS 23:09 Liver Profile Ordered. EDMS 23:09 Lipase Ordered. EDMS 23:09 Troponin Ordered. EDMS 23:09 -Influenza A&B Rapid Antigen - Nose Ordered. EDMS 23:10 Chest, 2 View (pa\E\lat) Ordered. EDMS 23:10 ECG WITH READING ER PHYS+CARDIAG ordered. EDMS 23:11 NS 0.9% 1000 ml IV at 100 mL/hr continuous ordered. br1 23:11 Ondansetron 4 mg IVP once ordered. br1 23:12 Dilaudid - HYDROmorphone 0.5 mg IVP once ordered. br1 23:51 [facility] Payment Agreement was scanned into [employer] and attached to record. scot 23:51 Financial registration complete. scot 05/14 00:16 Acetaminophen Tablet 650 mg PO once ordered. cs11 00:38 Dilaudid - HYDROmorphone 0.5 mg IVP once ordered. cs11 00:58 CBC with Diff Reviewed. cs11 00:58 BMP Reviewed. cs11 00:58 Liver Profile Reviewed. cs11 00:58 Lipase Reviewed. cs11 00:58 Troponin Reviewed. cs11 00:58 -Influenza A&B Rapid Antigen - Nose Reviewed. cs11 00:59 Potassium Chloride Extended Release Tablet 40 mEq PO once ordered. cs11 01:36 CT ABD & PELVIS W/O CONTRAST Ordered. EDMS 02:17 Ultrasound Abd Limited Ordered. EDMS 02:58 CT ABD & PELVIS W/O CONTRAST Reviewed. cs11 03:07 Dilaudid - HYDROmorphone 1 mg IVP once ordered. cs11 04:03 BED REQUEST+ADM ordered. EDMS 04:05 Admission Orders was scanned into [employer] and attached to record. ar3 10:04 T-Sheet-- Draft Copy was scanned into [employer] and attached to record. gb 10:05 ECG/EKG was scanned into [employer] and attached to record. gb 10:05 Radiology Report was scanned into [employer] and attached to record. gb Administered Medications: Discontinued: NS 0.9% 1000 ml IV at 100 mL/hr continuous 05/13 23:45 Drug: Ondansetron 4 mg [ondansetron HCl 2 mg/mL intravenous solution (2 mL)] Route: cf2 IVP; Site: Implantable Access Device; 05/14 01:09 Follow up: Response: No significant change. cf2 05/13 23:46 Drug: NS 0.9% 1000 ml [sodium chloride 0.9 % intravenous solution] Route: IV; Rate: 100 cf2 mL/hr; Site: Implantable Access Device; 05/14 01:10 Follow up: Response: No significant change. cf2 05/13 23:46 Drug: Dilaudid - HYDROmorphone 0.5 mg [hydromorphone 1 mg/mL injection syringe (0.5 cf2 mL)] Route: IVP; Site: Implantable Access Device; 05/14 01:09 Follow up: Response: No significant change. cf2 00:48 Not Given (Patient Refused): Acetaminophen Tablet 650 mg PO once cf2 00:50 Drug: Dilaudid - HYDROmorphone 0.5 mg [hydromorphone 1 mg/mL injection syringe (0.5 cf2 mL)] Route: IVP; Site: Implantable Access Device; 01:10 Follow up: Response: No significant change. cf2 02:00 Drug: Potassium Chloride 40 mEq [potassium chloride ER 10 mEq tablet,extended release cf2 (4 tabs)] Route: PO; 03:08 Follow up: Response: No Adverse Reaction cf2 03:15 Drug: Dilaudid - HYDROmorphone 1 mg [hydromorphone 1 mg/mL injection syringe (1 mL)] cf2 Route: IVP; Site: Implantable Access Device; 03:32 Follow up: Response: Pain is decreased cf2 Signatures: Dispatcher [employer] EDMS Jessica Summers, Reg Reg gb Daryl Miller MD MD br1 Brittney Croft, LAST MODEL MAKER LAST MODEL MAKER ar3 Marilee Murphy RN RN sls1 Malcolm Colvin, DO cs11 Arel, Gisel Cooper RN RN [facility] Maribell Callahan RN RN cf2 The chart was reviewed and I authenticate all verbal orders and agree with the evaluation and treatment provided.Corrections: (The following items were deleted from the chart) 01:36 12 23:50 CT ABD & PELVIS WITH CONTRAST+CT ordered. EDMS EDMS Attachments: 23:51 [facility] Payment Agreement 05/14 04:05 Admission Orders ar3 10:04 T-Sheet-- Draft Copy gb 10:05 ECG/EKG gb Chart Complete MTDD
[2016-05-16 06:21] LABS: BASO % 0.4 % (0.0-1.0); EOS % 0.1 % (0.0-3.0); LARGE UNSTAINED CELL # 0.2 K/mm3 (0.0-0.4); LARGE UNSTAINED CELL % 2.1 % (0.0-4.0); LYMPH % 27.2 % (24.0-44.0); MEAN CORPUSCULAR HEMOGLOBIN 28.7 pg (27.0-33.0); MEAN CORPUSCULAR HGB CONC 33.7 g/dl (32.0-36.5); MEAN CORPUSCULAR VOLUME 85.1 fl (80.0-96.0); MONO # 0.3 K/mm3 (0.0-0.8); NEUTROPHILS # 4.8 K/mm3 (1.8-7.7); NEUTROPHILS % 66.2 % (36.0-66.0); PLATELET COUNT, AUTOMATED 170 k/mm3 (150-450); RED CELL DISTRIBUTION WIDTH 13.6 % (11.5-14.5); WHITE BLOOD COUNT 7.2 K/mm3 (4.0-10.0)
[2016-05-16 06:24] LABS: ALBUMIN 2.9 GM/DL (3.2-5.2); ALBUMIN/GLOBULIN RATIO 0.97 (1.00-1.93); ALKALINE PHOSPHATASE 159 U/L (45-117); ALT/SGPT 102 U/L (12-78); ANION GAP 8 MEQ/L (8-16); AST/SGOT 130 U/L (15-37); BILIRUBIN,TOTAL 1.2 MG/DL (0.2-1.0); BLOOD UREA NITROGEN 17 MG/DL (7-18); CALCIUM LEVEL 8.5 MG/DL (8.5-10.1); CARBON DIOXIDE LEVEL 31 MEQ/L (21-32); CHLORIDE LEVEL 101 MEQ/L (98-107); CREATININE FOR GFR 0.67 MG/DL (0.55-1.02); GLOMERULAR FILTRATION RATE > 60.0 (>51); GLUCOSE, FASTING 132 MG/DL (70-105); MAGNESIUM LEVEL 1.6 MG/DL (1.8-2.4); POTASSIUM SERUM 3.8 MEQ/L (3.5-5.1); SODIUM LEVEL 140 MEQ/L (136-145); TOTAL PROTEIN 5.9 GM/DL (6.4-8.2)
[2016-05-16] MEDS: metroNIDAZOLE 500 MG in APPROPRIATE DILUENT 1 EA IV SCH (08:31)
[2016-05-16] MEDS: hydroCHLOROthiazide 25 MG TAB PO SCH (08:33)
[2016-05-16] MEDS: CALCIUM CARBONATE 500 MG CHEW U/D PO SCH ×2 (08:34→20:46)
[2016-05-16] MEDS: clonazePAM 1 MG TAB PO SCH ×3 (08:34→20:47)
[2016-05-16] MEDS: ENOXAPARIN 40 MG/0.4 ML SYRINGE (J1650) SC SCH (08:39)
[2016-05-16] MEDS: oxyCODONE 40 MG CR TAB PO SCH ×2 (08:39→22:19)
[2016-05-16] MEDS: DULoxetine 30 MG CAP (CYMBALTA) PO SCH (08:40)
[2016-05-16] MEDS: CETIRIZINE (ZyrTEC) 10 MG TAB PO SCH (08:40)
[2016-05-16] MEDS: FERROUS SULFATE 325MG TAB PO SCH (08:40)
[2016-05-16] MEDS: MECLIZINE 25 MG TABLET PO SCH ×3 (08:40→20:47)
[2016-05-16] MEDS: DOCUSATE SODIUM 100 MG CAP PO SCH ×3 (08:40→20:47)
[2016-05-16] MEDS: ATENOLOL 50 MG TAB PO SCH ×2 (08:41→20:47)
[2016-05-16] MEDS: CIPROFLOXACIN 400 MG in APPROPRIATE DILUENT 1 EA IV SCH (08:41)
[2016-05-16] MEDS ORDERED: NS 500 ML IV SCH (09:00)
[2016-05-16] MEDS: AZELASTINE 137MCG NASAL SPY 30 ML (ASTELIN) SCH (09:00)
--- NOTE | 2016-05-16 09:04 | HPE ---
DATE OF ADMISSION: 05/14/2016 REASON FOR CONSULTATION: Abdominal pain. HISTORY OF PRESENT ILLNESS: The patient is a 55-year-old female who has had multiple hospitalizations for a C1 esterase deficiency causing hereditary angioedema. She also has degenerative disk disease, hypertension, hepatitis B and C, chronic back pain. She came in the emergency room on the evening of the with abdominal pain. She has chronic abdominal pain, however, it is usually relieved when she takes her C1 esterase inhibitor at home. However, she took a dose the other day without improvement and she came to the hospital to be evaluated. In the ER, she is known there and she has been evaluated multiple times in the past, however her symptoms seemed different than previously, so they obtained a CT of the abdomen which showed likely cholelithiasis causing some mild acute inflammatory changes. Therefore, I was asked to evaluate. Currently the patient is up on the floor. She is comfortable. She does have significant belly pain, however, she says that it is mainly in the lower abdomen, not in the upper abdomen. She has nausea, no vomiting. When she presses on her abdomen it causes the nausea to get worse, yet again no emesis has occurred. Denies any shortness of breath. No acid reflux or heartburn. PAST MEDICAL HISTORY: Hereditary angioedema. Left breast cancer status post modified radicle mastectomy and chemotherapy. Hepatitis C. Hepatitis B. Hypertension. Neuropathy. Osteoporosis. Kyphosis. Hypertension. Degenerative disc disease. PAST SURGICAL HISTORY: Tracheostomy. Infusaport. Right hip surgery. Tubal ligation. Open appendectomy. SOCIAL HISTORY: Denies any alcohol or tobacco abuse. ALLERGIES: 1. ASPIRIN. 2. GABAPENTIN. 3. CODEINE. 4. TORADOL. 5. MORPHINE. 6. ZOFRAN. 7. PENICILLIN. 8. PREGABALIN. 9. PENTAZOCINE. FAMILY HISTORY: Noncontributory. HOME MEDICATIONS: Please see med rec. REVIEW OF SYSTEMS: Pertinent positives and negatives as stated in the history of present illness. PHYSICAL EXAMINATION: GENERAL: Alert and oriented times three. No acute stress. VITALS: Blood pressure 139/68, pulse 74, respirations 16, temperature 98, pulse oximetry 99% on room air. HEENT: Pupils equally round and react to light accommodation. HEART: S1 and S2 regular rate and rhythm. LUNGS: Clear to auscultation bilaterally. ABDOMEN: Soft, tender to palpation diffusely, most significantly in the right upper quadrant. No rebounding, guarding or rigidity. Bowel sounds positive. EXTREMITIES: Bilateral lower extremity edema. LABORATORY DATA: White count 3.5, hemoglobin 9.7, platelets 132, total bilirubin 0.3, lipase 120. IMAGING STUDIES: CT abdomen and pelvis is positive for cholelithiasis with suspected mild acute inflammatory changes of the gallbladder. ASSESSMENT/PLAN: Again, the patient is a 55-year-old female with a complicated medical history including C1 esterase deficiency, hypertension, chronic back pain, hepatitis B and C, and now having signs of acute cholecystitis with cholelithiasis. She also has significant constipation on CT scan. Recommendation at this time is to treat her for the constipation. Will give her a bottle of mag citrate, enemas and stool softeners and see if this relieves her pain since her symptoms are more diffuse rather than located in the right upper quadrant. However, this still could potentially be due to a mild acute cholecystitis. We will check her again in 24 hours. If her symptoms are not relieved then we will plan for laparoscopic cholecystectomy.
[2016-05-16] MEDS: amLODIPine 10 MG TAB PO SCH (11:50)
[2016-05-16] MEDS: PANTOPRAZOLE 20 MG TAB PO SCH (11:50)
--- NOTE | 2016-05-16 11:51 | REP ---
Clinical: Chest pain; rule out infiltrate. Comparison: 05/14/2016. Findings: Examination is limited by portable technique, positioning, and poor expiratory effort. Tracheostomy and central venous catheter are in stable satisfactory position. Chronic interstitial changes are identified. Bilateral lower lobe infiltrates cannot be excluded. Mediastinum and cardiac silhouette are incompletely evaluated due to portable technique and positioning. Impression: Bilateral lower lobe infiltrates/atelectasis suggested. Signed by Rodri Hayes MD 05/16/2016 11:42 A
--- NOTE | 2016-05-16 12:24 | IPNPDOC ---
Text Note Date of Service The patient was seen on 05/16/16 at 12:12. 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 Patient had a recent admission in 03/2016 for abdominal pain and was found to be 2/2 to exacerbation of hereditary angioedema , for which she received an additional dose of Berinert. Patient presented to the ER this time with complaints of abdominal pain and was found to have cholelithiasis and suspected inflammation of their gallbladder. She was admitted to surgical service for acute cholecystitis. Patient was seen and examined at the bedside. Patient has received a laparoscopic cholecystectomy yesterday; still complains of abdominal pain. Objective: Vitals (see below) General: Lying in bed, no acute distress, AAOx3 HEENT: NC, AT CVS: RRR, +S1S2 Lungs: Fair air entry bilaterally, no wheezing / rales / rhonchi Abdomen: Soft, ND, Tenderness appreciated diffusely, Hypoactive BS Extremities: No lower extremity edema, no calf tenderness Assessment and plan: 1. Abdominal pain - likely 2/2 acute cholecystitis - s/p cholecystectomy, and possibly 2/2 exacerbation of angioedema, less likely constipation - presented to ER with complaints of abdominal pain, similar to prior episodes - physical reveals right upper quadrant tenderness - US abdomen 04/14: reveals cholelithiasis and suspected inflammation of gallbladder - CT abdomen 04/14: Cholelithiasis, suspect mild acute inflammatory changes of the gallbladder, moderate constipation - Admitted to surgical service - Follows with Dr. Roca as an outpatient for immunology - s/p Berinert 05/15; s/p Laparoscopic cholecystectomy (POD#1) - c/w Ciprofloxacin and Flagyl (Day #3) - will give additional dose of Berinert today 2. Fever - possibly 2/2 infection, possibly 2/2 atelectasis - Complains of abdominal pain, - Hemodynamically stable - Blood cultures pending, Urine culture and urinalysis pending - No leukocytosis - PO CXR 05/16: bilateral lower lobe infiltrates/atelectasis suggested - c/w Ciprofloxacin and Flagyl (Day #3); if no improvement will escalate antibiotics 3. Chronic pain - likely 2/2 degenerative disease - continue with home pain medication regimen - will continue to monitor breathing status - will transfer to PCU for continuous pulse oximetry - will need nocturnal oximetry study 4. s/p Hypokalemia - repleted 5. s/p Hypernatremia - s/p LR and 1/2 NS - will stop IV fluids 6. Normocytic anemia - Hg appears to be at baseline and stable - will follow 7. Leukopenia, chronic - will monitor for now 8. Hepatitis B and C - no elevation in liver enzymes - continue to follow as outpatient 9. HTN - continue with home medications (Amlodipine and Atenolol) with holding parameters 10. Psoriasis - c/w home medications 11. History of left breast cancer 12. Osteoporosis 13. GERD - c/w protonix 14. DVT prophylaxis - c/w lovenox VS,Fishbone, I+O VS, Fishbone, I+O Laboratory Tests 05/16/16 05:47 Calcium Level 8.5, Aspartate Amino Transf (AST/SGOT) 130 H, Alanine Aminotransferase (ALT/SGPT) 102 H, Alkaline Phosphatase 159 H, Total Bilirubin 1.2 #H, Total Protein 5.9 L, Albumin 2.9 L, Red Blood Count 3.77 L, Mean Corpuscular Volume 85.1, Mean Corpuscular Hemoglobin 28.7, Mean Corpuscular Hemoglobin Concent 33.7, Red Cell Distribution Width 13.6, Neutrophils (%) (Auto ) 66.2 H, Lymphocytes (%) (Auto) 27.2, Monocytes (%) (Auto) 4.0, Eosinophils (% ) (Auto) 0.1, Basophils (%) (Auto) 0.4, Neutrophils # (Auto) 4.8, Lymphocytes # (Auto) 2.0, Monocytes # (Auto) 0.3, Eosinophils # (Auto) 0.0, Basophils # (Auto ) 0.0 Vital Signs Date Time Temp Pulse Resp B/P Pulse Ox O2 Delivery O2 Flow Rate FiO2 05/16/16 12:00 98.5 85 20 112/64 94 Trach Collar 05/16/16 08:00 40 05/15/16 22:38 10.0 I&O- Last 24 Hours up to 6 AM 05/16/16 06:00 Intake Total 1230 ml Output Total 0 ml Balance 1230 ml LUCIA NUNEZ MD May 16, 2016 12:24
[2016-05-16] MEDS: metroNIDAZOLE (FLAGYL) 500 MG TAB PO SCH ×2 (13:47→22:18)
[2016-05-16] MEDS ORDERED: [UNRECOGNIZED DRUG - OTHER] SC ONE (15:00)
[2016-05-16] MEDS: MAGNESIUM OXIDE 400 MG TAB (MAG-OX) PO SCH (15:06)
[2016-05-16] MEDS: AZTREONAM 1 GM in D5W MINI-BAG PLUS 50 ML IV SCH (16:03)
[2016-05-16] MEDS ORDERED: CIPROFLOXACIN 500 MG TAB PO SCH (18:00)
[2016-05-16] MEDS: PRAMIPEXOLE 0.25 MG TAB PO SCH (20:47)
[2016-05-17] VITALS (15 sets, daily range): BP systolic 98–129; BP diastolic 56–75; O2SAT 88–99
[2016-05-17] MEDS: AZTREONAM 1 GM in D5W MINI-BAG PLUS 50 ML IV SCH ×3 (00:46→16:12)
[2016-05-17] MEDS: oxyCODONE 5MG TAB PO PRN ×3 (01:16→14:45)
[2016-05-17] MEDS ORDERED: [UNRECOGNIZED DRUG - OTHER] SC ONE (03:00)
[2016-05-17 05:14] LABS: BASO # 0.1 K/mm3 (0.0-0.2); BASO % 1.1 % (0.0-1.0); EOS # 0.1 K/mm3 (0.0-0.50); EOS % 1.5 % (0.0-3.0); LARGE UNSTAINED CELL # 0.1 K/mm3 (0.0-0.4); LARGE UNSTAINED CELL % 1.8 % (0.0-4.0); LYMPH # 1.3 K/mm3 (1.5-4.5); LYMPH % 22.1 % (24.0-44.0); MEAN CORPUSCULAR HEMOGLOBIN 29.2 pg (27.0-33.0); MEAN CORPUSCULAR HGB CONC 33.7 g/dl (32.0-36.5); MEAN CORPUSCULAR VOLUME 86.7 fl (80.0-96.0); MONO # 0.1 K/mm3 (0.0-0.8); MONO % 2.3 % (0.0-5.0); NEUTROPHILS # 3.8 K/mm3 (1.8-7.7); NEUTROPHILS % 71.3 % (36.0-66.0); PLATELET COUNT, AUTOMATED 121 k/mm3 (150-450); RED CELL DISTRIBUTION WIDTH 14.6 % (11.5-14.5); WHITE BLOOD COUNT 5.4 K/mm3 (4.0-10.0)
[2016-05-17 05:45] LABS: ALBUMIN 2.6 GM/DL (3.2-5.2); ALBUMIN/GLOBULIN RATIO 0.93 (1.00-1.93); ALKALINE PHOSPHATASE 136 U/L (45-117); ALT/SGPT 66 U/L (12-78); ANION GAP 5 MEQ/L (8-16); AST/SGOT 65 U/L (15-37); BILIRUBIN,TOTAL 2.1 MG/DL (0.2-1.0); BLOOD UREA NITROGEN 21 MG/DL (7-18); CALCIUM LEVEL 8.3 MG/DL (8.5-10.1); CARBON DIOXIDE LEVEL 34 MEQ/L (21-32); CHLORIDE LEVEL 100 MEQ/L (98-107); CREATININE FOR GFR 0.57 MG/DL (0.55-1.02); GLOMERULAR FILTRATION RATE > 60.0 (>51); GLUCOSE, FASTING 80 MG/DL (70-105); MAGNESIUM LEVEL 1.9 MG/DL (1.8-2.4); POTASSIUM SERUM 3.7 MEQ/L (3.5-5.1); SODIUM LEVEL 139 MEQ/L (136-145); TOTAL PROTEIN 5.4 GM/DL (6.4-8.2)
[2016-05-17] MEDS: metroNIDAZOLE (FLAGYL) 500 MG TAB PO SCH ×3 (05:50→21:11)
[2016-05-17] MEDS: ENOXAPARIN 40 MG/0.4 ML SYRINGE (J1650) SC SCH (08:04)
[2016-05-17] MEDS: DULoxetine 30 MG CAP (CYMBALTA) PO SCH (08:04)
[2016-05-17] MEDS: DOCUSATE SODIUM 100 MG CAP PO SCH ×3 (08:04→21:12)
[2016-05-17] MEDS: MECLIZINE 25 MG TABLET PO SCH ×3 (08:04→21:11)
[2016-05-17] MEDS: hydroCHLOROthiazide 25 MG TAB PO SCH (08:05)
[2016-05-17] MEDS: IBUPROFEN 600 MG TAB PO PRN ×2 (08:05→16:13)
[2016-05-17] MEDS: clonazePAM 1 MG TAB PO SCH ×3 (08:05→21:12)
[2016-05-17] MEDS: CALCIUM CARBONATE 500 MG CHEW U/D PO SCH ×2 (08:05→21:11)
[2016-05-17] MEDS: AZELASTINE 137MCG NASAL SPY 30 ML (ASTELIN) SCH (08:06)
[2016-05-17] MEDS: FERROUS SULFATE 325MG TAB PO SCH (08:06)
[2016-05-17] MEDS: CETIRIZINE (ZyrTEC) 10 MG TAB PO SCH (08:06)
[2016-05-17] MEDS: ATENOLOL 50 MG TAB PO SCH ×2 (08:06→21:13)
[2016-05-17] MEDS ORDERED: guaiFENesin 200 MG TAB PO PRN (08:15)
[2016-05-17 11:21] LABS: BILIRUBIN,DIRECT 1.4 MG/DL (0.0-0.2)
[2016-05-17] MEDS: PANTOPRAZOLE 20 MG TAB PO SCH (11:24)
[2016-05-17] MEDS: oxyCODONE 40 MG CR TAB PO SCH ×2 (11:25→21:14)
[2016-05-17] MEDS: amLODIPine 10 MG TAB PO SCH (11:25)
[2016-05-17] MEDS: MAGNESIUM OXIDE 400 MG TAB (MAG-OX) PO SCH (16:15)
[2016-05-17] MEDS: PRAMIPEXOLE 0.25 MG TAB PO SCH (21:13)
[2016-05-18] VITALS (7 sets, daily range): BP systolic 112–163; BP diastolic 58–88
[2016-05-18] MEDS: AZTREONAM 1 GM in D5W MINI-BAG PLUS 50 ML IV SCH ×4 (00:01→23:35)
[2016-05-18] MEDS: oxyCODONE 5MG TAB PO PRN ×2 (03:12→11:49)
[2016-05-18] MEDS: metroNIDAZOLE (FLAGYL) 500 MG TAB PO SCH ×3 (05:51→21:57)
[2016-05-18 06:16] LABS: BASO % 0.4 % (0.0-1.0); EOS # 0.1 K/mm3 (0.0-0.50); EOS % 2.6 % (0.0-3.0); LARGE UNSTAINED CELL # 0.1 K/mm3 (0.0-0.4); LARGE UNSTAINED CELL % 2.5 % (0.0-4.0); LYMPH # 1.2 K/mm3 (1.5-4.5); LYMPH % 25.5 % (24.0-44.0); MEAN CORPUSCULAR HEMOGLOBIN 29.1 pg (27.0-33.0); MEAN CORPUSCULAR HGB CONC 33.1 g/dl (32.0-36.5); MEAN CORPUSCULAR VOLUME 88.1 fl (80.0-96.0); MONO # 0.2 K/mm3 (0.0-0.8); MONO % 3.3 % (0.0-5.0); NEUTROPHILS # 3.1 K/mm3 (1.8-7.7); NEUTROPHILS % 65.7 % (36.0-66.0); PLATELET COUNT, AUTOMATED 156 k/mm3 (150-450); RED CELL DISTRIBUTION WIDTH 13.7 % (11.5-14.5); WHITE BLOOD COUNT 4.6 K/mm3 (4.0-10.0)
[2016-05-18 06:41] LABS: ALBUMIN 2.4 GM/DL (3.2-5.2); ALBUMIN/GLOBULIN RATIO 0.69 (1.00-1.93); ALKALINE PHOSPHATASE 182 U/L (45-117); ALT/SGPT 45 U/L (12-78); ANION GAP 8 MEQ/L (8-16); AST/SGOT 32 U/L (15-37); BILIRUBIN,TOTAL 1.5 MG/DL (0.2-1.0); BLOOD UREA NITROGEN 20 MG/DL (7-18); CALCIUM LEVEL 8.7 MG/DL (8.5-10.1); CARBON DIOXIDE LEVEL 33 MEQ/L (21-32); CHLORIDE LEVEL 101 MEQ/L (98-107); CREATININE FOR GFR 0.49 MG/DL (0.55-1.02); GLOMERULAR FILTRATION RATE > 60.0 (>51); GLUCOSE, FASTING 82 MG/DL (70-105); MAGNESIUM LEVEL 1.9 MG/DL (1.8-2.4); POTASSIUM SERUM 3.5 MEQ/L (3.5-5.1); SODIUM LEVEL 142 MEQ/L (136-145); TOTAL PROTEIN 5.9 GM/DL (6.4-8.2)
[2016-05-18] MEDS: oxyCODONE 40 MG CR TAB PO SCH ×2 (09:00→21:59)
[2016-05-18] MEDS: CETIRIZINE (ZyrTEC) 10 MG TAB PO SCH (09:00)
[2016-05-18] MEDS: ENOXAPARIN 40 MG/0.4 ML SYRINGE (J1650) SC SCH (09:00)
[2016-05-18] MEDS: MECLIZINE 25 MG TABLET PO SCH ×3 (09:00→21:57)
[2016-05-18] MEDS: DOCUSATE SODIUM 100 MG CAP PO SCH ×3 (09:00→21:57)
[2016-05-18] MEDS: AZELASTINE 137MCG NASAL SPY 30 ML (ASTELIN) SCH (09:00)
[2016-05-18] MEDS: FERROUS SULFATE 325MG TAB PO SCH (09:00)
[2016-05-18] MEDS: hydroCHLOROthiazide 25 MG TAB PO SCH (09:00)
[2016-05-18] MEDS: clonazePAM 1 MG TAB PO SCH ×3 (09:00→21:57)
[2016-05-18] MEDS: CALCIUM CARBONATE 500 MG CHEW U/D PO SCH ×2 (09:00→21:56)
[2016-05-18] MEDS: DULoxetine 30 MG CAP (CYMBALTA) PO SCH (09:00)
[2016-05-18] MEDS: ATENOLOL 50 MG TAB PO SCH ×2 (09:00→21:57)
[2016-05-18] MEDS ORDERED: FLEET ENEMA PR PRN (10:00)
[2016-05-18] MEDS ORDERED: MAGNESIUM CITRATE 300 ML BTL PO ONE (11:00)
[2016-05-18] MEDS: amLODIPine 10 MG TAB PO SCH (11:47)
[2016-05-18] MEDS: PANTOPRAZOLE 20 MG TAB PO SCH (11:47)
--- NOTE | 2016-05-18 14:51 | IPNPDOC ---
Text Note Date of Service The patient was seen on 05/18/16 at 14:36. 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 Patient had a recent admission in 03/2016 for abdominal pain and was found to be 2/2 to exacerbation of hereditary angioedema , for which she received an additional dose of Berinert. Patient presented to the ER this time with complaints of abdominal pain and was found to have cholelithiasis and suspected inflammation of their gallbladder. She was admitted to surgical service for acute cholecystitis. Patient was seen and examined at the bedside. Today she notes that her abdominal pain has been resolving. It has lessened in intensity. She notes that she still has not had any bowel movements of passed flatus. Objective: Vitals (see below) General: Lying in bed, no acute distress, AAOx3 HEENT: NC, AT CVS: RRR, +S1S2 Lungs: Fair air entry bilaterally, course lung sounds at b/l lung carter Abdomen: Soft, ND, Tenderness appreciated diffusely - less than yesterday, Hypoactive BS Extremities: No lower extremity edema, no calf tenderness Assessment and plan: 1. Abdominal pain - likely 2/2 acute cholecystitis - s/p cholecystectomy, and possibly 2/2 exacerbation of angioedema - presented to ER with complaints of abdominal pain, similar to prior episodes - physical with decreasing abdominal pain - CT evidence of cholelithiasis and inflammatory changes of GB - s/p Lap cholecystectomy (POD #3) - Admitted to surgical service - s/p 1 dose of Berinert prior to surgery, 1 dose 04/17 2. Fever - possibly 2/2 infection 2/2 pneumonia, possibly 2/2 atelectasis - Complains of abdominal pain, has had persistent cough with sputum production - Hemodynamically stable - Blood cultures negative, Urine culture negative; Sputum culture: moderate WBC , many gram positive cocci in pairs, chains and clusters, many gram positive rods - No leukocytosis - however initially leukopenic, but now normalized - PO CXR 05/16: bilateral lower lobe infiltrates/atelectasis suggested - c/w Aztreonam and Flagyl, will add vancomycin 3. s/p Transaminitis - possibly 2/2 acute cholecystitis, possibly 2/2 surgical intervention - has trended down 4. Chronic pain - likely 2/2 degenerative disease - continue with home pain medication regimen - will continue to monitor breathing status - will need nocturnal oximetry study prior to DC 5. s/p Hypokalemia - repleted 6. s/p Hypernatremia - s/p LR and 1/2 NS - will stop IV fluids 7. Normocytic anemia - Hg appears to be at baseline and stable - will follow 8. s/p Leukopenia, chronic - will monitor for now 9. Hepatitis B and C - no elevation in liver enzymes - continue to follow as outpatient 10. HTN - continue with home medications (Amlodipine and Atenolol) with holding parameters 11. Psoriasis - c/w home medications 12. History of left breast cancer 13. Osteoporosis 14. GERD - c/w protonix 15. DVT prophylaxis - c/w lovenox VS,Fishbone, I+O VS, Fishbone, I+O Laboratory Tests 05/18/16 05:59 Calcium Level 8.7, Aspartate Amino Transf (AST/SGOT) 32, Alanine Aminotransferase (ALT/SGPT) 45, Alkaline Phosphatase 182 H, Total Bilirubin 1.5 H, Total Protein 5.9 L, Albumin 2.4 L, Red Blood Count 2.99 L, Mean Corpuscular Volume 88.1, Mean Corpuscular Hemoglobin 29.1, Mean Corpuscular Hemoglobin Concent 33.1, Red Cell Distribution Width 13.7, Neutrophils (%) (Auto) 65.7, Lymphocytes (%) (Auto) 25.5, Monocytes (%) (Auto) 3.3, Eosinophils (%) (Auto) 2.6, Basophils (%) (Auto) 0.4, Neutrophils # (Auto) 3.1, Lymphocytes # (Auto) 1.2 L, Monocytes # (Auto) 0.2, Eosinophils # (Auto) 0.1, Basophils # (Auto) 0.0 Vital Signs Date Time Temp Pulse Resp B/P Pulse Ox O2 Delivery O2 Flow Rate FiO2 05/18/16 12:19 20 Trach Collar 35 05/18/16 11:47 87 163/88 05/18/16 11:30 98.7 95 05/17/16 21:14 10.0 I&O- Last 24 Hours up to 6 AM 05/18/16 06:00 Intake Total 700 ml Output Total 900 ml Balance -200 ml LUCIA NUNEZ MD May 18, 2016 14:50
[2016-05-18] MEDS ORDERED: VANCOMYCIN HCL 1,000 MG, VIAL MATE ADAPTER 1 EACH in D5W 250 ML IV ONE (15:30)
--- NOTE | 2016-05-18 15:55 | PHACANCOPD ---
PHARMACY VANCOMYCIN DOSING Pt Demographics Demographics Patient Age:55 , Weight:72.800 , Gender: female Adjusted Body Weight Date: 05/18/16, Adjusted Body Weight: Kg Events Past 24 Hours Events Past 24 Hours: NO: Change in CrCl, Dialysis, Diuretic Therapy, Elevation in WBC, Fever, Other, Pending Diagnostics, Pending Procedures Vancomycin Vancomycin indication: MRSA coverage Vancomycin Target Ranges: 15-20 mcg/ml Vancomycin Load Y/N: Yes Load Dose Date Time Vancomycin Load Dose: 1000mg Date: 05/18 Time: 15:30, 18:00 Vancomycin Dose Date: 05/18/16. Current Vancomycin Dose: [1g IV q12h @18] Intermittent Dosing?: No Labs Labs Item Value Date Time White Blood Count 3.5 K/mm3 L 05/15/16 0515 White Blood Count 7.2 K/mm3 05/16/16 0547 White Blood Count 5.4 K/mm3 05/17/16 0456 White Blood Count 4.6 K/mm3 05/18/16 0559 Creatinine 0.67 MG/DL 05/16/16 0547 Creatinine 0.57 MG/DL 05/17/16 0456 Creatinine 0.49 MG/DL L 05/18/16 0559 Micro Microbiology 05/16/16 Blood Culture - Preliminary, Resulted No Growth after 48 hours. All Specime... 05/16/16 Blood Culture - Preliminary, Resulted No Growth after 48 hours. All Specime... 05/17/16 Gram Stain - Final, Resulted 05/17/16 Sputum Culture, Resulted Pending 05/13/16 Influenza Virus Type A Antigen - Final, Complete 05/13/16 Influenza Virus Type B Antigen - Final, Complete 05/16/16 Urine Culture - Final, Complete Creatinine Clearance Date:05/18/16. Creatinine Clearance: [>100 ml/min]. Assessment and Plan Maintaining Current Dose?: Yes Reason for dose change: No Dose Change Pharmacist Note Pharmacist Note Date: 05/18/16. Pharmacist note: pt was previously on aztreonam and metronidazole, added vancomycin today due to worsening symptoms. She does not have a MRSA Hx and has not recently been on vancomycin at our facility. I have essentially given her a 2g load and started 1g q12h. We will continue to monitor and order a trough as necessary. Dougie Hernandez Pharm.D. May 18, 2016 15:55
[2016-05-18] MEDS: MAGNESIUM OXIDE 400 MG TAB (MAG-OX) PO SCH (16:27)
[2016-05-18] MEDS: VANCOMYCIN HCL 1,000 MG, VIAL MATE ADAPTER 1 EACH in D5W 250 ML IV SCH (18:16)
[2016-05-18] MEDS: PRAMIPEXOLE 0.25 MG TAB PO SCH (22:01)
[2016-05-19] VITALS (9 sets, daily range): BP systolic 108–125; BP diastolic 58–74; O2SAT 92–94
[2016-05-19] MEDS: VANCOMYCIN HCL 1,000 MG, VIAL MATE ADAPTER 1 EACH in D5W 250 ML IV SCH ×3 (05:21→23:41)
[2016-05-19] MEDS: metroNIDAZOLE (FLAGYL) 500 MG TAB PO SCH ×3 (05:21→22:34)
[2016-05-19] MEDS: oxyCODONE 5MG TAB PO PRN (05:36)
[2016-05-19 05:45] LABS: BASO # 0.1 K/mm3 (0.0-0.2); BASO % 1.5 % (0.0-1.0); EOS # 0.1 K/mm3 (0.0-0.50); EOS % 2.1 % (0.0-3.0); LARGE UNSTAINED CELL # 0.1 K/mm3 (0.0-0.4); LARGE UNSTAINED CELL % 2.8 % (0.0-4.0); LYMPH # 1.9 K/mm3 (1.5-4.5); LYMPH % 34.4 % (24.0-44.0); MEAN CORPUSCULAR HEMOGLOBIN 28.5 pg (27.0-33.0); MEAN CORPUSCULAR HGB CONC 32.7 g/dl (32.0-36.5); MEAN CORPUSCULAR VOLUME 87.1 fl (80.0-96.0); MONO # 0.2 K/mm3 (0.0-0.8); MONO % 4.3 % (0.0-5.0); NEUTROPHILS # 2.7 K/mm3 (1.8-7.7); PLATELET COUNT, AUTOMATED 173 k/mm3 (150-450); RED CELL DISTRIBUTION WIDTH 14.2 % (11.5-14.5)
[2016-05-19 06:02] LABS: ALBUMIN 2.3 GM/DL (3.2-5.2); ALBUMIN/GLOBULIN RATIO 0.62 (1.00-1.93); ALKALINE PHOSPHATASE 336 U/L (45-117); ALT/SGPT 32 U/L (12-78); ANION GAP 7 MEQ/L (8-16); AST/SGOT 23 U/L (15-37); BLOOD UREA NITROGEN 17 MG/DL (7-18); CALCIUM LEVEL 8.3 MG/DL (8.5-10.1); CARBON DIOXIDE LEVEL 34 MEQ/L (21-32); CHLORIDE LEVEL 100 MEQ/L (98-107); GLOMERULAR FILTRATION RATE > 60.0 (>51); GLUCOSE, FASTING 91 MG/DL (70-105); MAGNESIUM LEVEL 1.7 MG/DL (1.8-2.4); POTASSIUM SERUM 3.2 MEQ/L (3.5-5.1); SODIUM LEVEL 141 MEQ/L (136-145)
[2016-05-19] MEDS: AZELASTINE 137MCG NASAL SPY 30 ML (ASTELIN) SCH (09:00)
[2016-05-19] MEDS ORDERED: POTASSIUM CHLORIDE 10% LIQ 20 MEQ/15 ML UDC PO ONE (09:00)
[2016-05-19] MEDS: AZTREONAM 1 GM in D5W MINI-BAG PLUS 50 ML IV SCH ×2 (09:27→17:37)
[2016-05-19] MEDS: DOCUSATE SODIUM 100 MG CAP PO SCH ×3 (09:28→22:35)
[2016-05-19] MEDS: FERROUS SULFATE 325MG TAB PO SCH (09:28)
[2016-05-19] MEDS: DULoxetine 30 MG CAP (CYMBALTA) PO SCH (09:28)
[2016-05-19] MEDS: MECLIZINE 25 MG TABLET PO SCH ×3 (09:28→22:35)
[2016-05-19] MEDS: clonazePAM 1 MG TAB PO SCH ×3 (09:29→22:37)
[2016-05-19] MEDS: hydroCHLOROthiazide 25 MG TAB PO SCH (09:29)
[2016-05-19] MEDS: CETIRIZINE (ZyrTEC) 10 MG TAB PO SCH (09:30)
[2016-05-19] MEDS: ATENOLOL 50 MG TAB PO SCH ×2 (09:30→21:00)
[2016-05-19] MEDS: ENOXAPARIN 40 MG/0.4 ML SYRINGE (J1650) SC SCH (09:30)
[2016-05-19] MEDS: CALCIUM CARBONATE 500 MG CHEW U/D PO SCH ×2 (09:30→22:34)
[2016-05-19] MEDS: MOM 30ML SUSPENSION UDC PO PRN (09:31)
--- NOTE | 2016-05-19 12:34 | REP ---
HEPATOBILIARY SCAN: HISTORY: Hyperbilirubinemia. Pain post cholecystectomy May 15, 2016. Comparison CT study is from May 14, 2016. TECHNIQUE: 6.6 mCi technetium 99m mebrofenin is injected and sequential anterior abdominal images are acquired for total of 80 minutes post injection. FINDINGS: Initial hepatocellular parenchymal uptake phase is homogeneous. There is a delay in the washout from the liver parenchyma on subsequent images. The intrahepatic bile ducts and extrahepatic bile ducts are not clearly labeled until the 50-minute image. At 65 to 80 minutes, there is some labeling of the duodenum. The gallbladder is surgically absent. There is no evidence to suggest bile leak. IMPRESSION: Delayed biliary to bowel transit time. This is nonspecific. Possibilities include partial extrahepatic biliary obstruction, ileus, and Cholestasis. Signed by Adin Owens MD 05/19/2016 01:25 P
--- NOTE | 2016-05-19 12:55 | RO ---
DATE OF PROCEDURE: 05/15/2016 PREOPERATIVE DIAGNOSIS: Acute cholecystitis. POSTOPERATIVE DIAGNOSIS: Acute cholecystitis. PROCEDURE: Laparoscopic cholecystectomy. SURGEON: Dr. Perkins NURSING ADMIN: Dr. Muhammad ANESTHESIA: General. ESTIMATED BLOOD LOSS: 5. COMPLICATIONS. None. INDICATIONS FOR PROCEDURE: Patient is a 55-year-old female presents with a history of right upper quadrant abdominal pain, signs of acute cholecystitis, as well as possible constipation. After failed medical treatment for 24 hours, recommendation was to proceed laparoscopic, possible open cholecystectomy. Risks and benefits of the procedure not limited to but including bleeding, infection, hernia formation, damage to surrounding structures and possible need for further surgery were discussed in detail with patient. Informed consent was obtained and procedure was planned. DESCRIPTION OF PROCEDURE: Patient brought back to operating room. After sufficient sedation, the abdomen was sterilely prepped and draped. Next, a time-out was done to confirm proper patient and proper procedure. Following that, a stab incision made in the left lower quadrant at [place] point. A Veress needle was inserted and the abdomen was insufflated to 15 mmHg. A 5 mm infraumbilical incision made and a 5 mm OptiView port was used to gain access to the abdomen. Once the abdomen was entered, Veress needle site was examined. There was no signs of injury. Veress needle was then removed. A 10 mm subxiphoid port was placed and then two 5 mm right upper quadrant ports. Gallbladder was very large and distended. A hole was poked in it to empty it. Gallbladder was then elevated up towards the right shoulder. The cyst duct and cystic artery were both then identified with blunt dissection. They were both then doubly clipped and cut. Gallbladder was then removed from gallbladder fossa using electrocautery, taken out with a 10 mm EndoCatch bag. Once the gallbladder was removed, the right upper quadrant was irrigated to confirm hemostasis. Abdomen was then desufflated. Skin incisions were closed with #4-0 Vicryl subcuticular sutures. Abdomen was then cleaned and dried. Steri-Strip, 4 x 4 and tape were applied, thus ending procedure.
[2016-05-19] MEDS: PANTOPRAZOLE 20 MG TAB PO SCH (13:14)
[2016-05-19] MEDS: amLODIPine 10 MG TAB PO SCH (13:14)
[2016-05-19] MEDS: oxyCODONE 40 MG CR TAB PO SCH ×2 (13:51→22:35)
[2016-05-19] MEDS: MAGNESIUM OXIDE 400 MG TAB (MAG-OX) PO SCH (13:51)
--- NOTE | 2016-05-19 18:31 | PHACANCOPD ---
PHARMACY VANCOMYCIN DOSING Pt Demographics Demographics Patient Age:55 , Weight:71.600 , Gender: female Adjusted Body Weight Date: 05/18/16, Adjusted Body Weight: Kg Events Past 24 Hours Events Past 24 Hours: YES: Fever, NO: Change in CrCl, Dialysis, Diuretic Therapy, Elevation in WBC, Other, Pending Diagnostics, Pending Procedures Vancomycin Vancomycin indication: MRSA coverage Vancomycin Target Ranges: 15-20 mcg/ml Vancomycin Load Y/N: Yes Load Dose Date Time Vancomycin Load Dose: 1000mg Date: 05/18 Time: 15:30, 18:00 Vancomycin Dose Date: 05/18/16. Current Vancomycin Dose: [1g IV q12h @18] Intermittent Dosing?: No Labs Labs Item Value Date Time Vancomycin Level Trough 9.9 UG/ML L 05/19/16 1730 White Blood Count 7.2 K/mm3 05/16/16 0547 White Blood Count 5.4 K/mm3 05/17/16 0456 White Blood Count 4.6 K/mm3 05/18/16 0559 White Blood Count 5.0 K/mm3 05/19/16 0530 Creatinine 0.57 MG/DL 05/17/16 0456 Creatinine 0.49 MG/DL L 05/18/16 0559 Creatinine 0.50 MG/DL L 05/19/16 0530 Vital Signs Label Value Date Time Patient Temperature 99.4 degrees F 05/19/16 1200 Temperature Source Tympanic 05/19/16 1200 Patient Temperature 99.1 degrees F 05/19/16 1600 Temperature Source Tympanic 05/19/16 1600 Micro Microbiology 05/16/16 Blood Culture - Preliminary, Resulted No Growth after 72 hours. All specime... 05/16/16 Blood Culture - Preliminary, Resulted No Growth after 72 hours. All specime... 05/17/16 Gram Stain - Final, Resulted 05/17/16 Sputum Culture, Resulted Pending 05/13/16 Influenza Virus Type A Antigen - Final, Complete 05/13/16 Influenza Virus Type B Antigen - Final, Complete 05/16/16 Urine Culture - Final, Complete Creatinine Clearance Date:05/18/16. Creatinine Clearance: [>100 ml/min]. Assessment and Plan Maintaining Current Dose?: No Reason for dose change: Trough too low Pharmacist Note Pharmacist Note Date: 05/19/16. Pharmacist note: trough was drawn 30 minutes before the 3rd dose and came back at 9.9. I have rescheduled her dosing to restart 5 hours after the 3rd dose. We will continue to monitor. Date: 05/18/16. Pharmacist note: pt was previously on aztreonam and metronidazole, added vancomycin today due to worsening symptoms. She does not have a MRSA Hx and has not recently been on vancomycin at our facility. I have essentially given her a 2g load and started 1g q12h. We will continue to monitor and order a trough as necessary. Dougie Hernandez Pharm.D. May 19, 2016 18:31
[2016-05-19] MEDS: PRAMIPEXOLE 0.25 MG TAB PO SCH (22:34)
[2016-05-20] VITALS (18 sets, daily range): BP systolic 107–121; BP diastolic 60–74; O2SAT 88–99
[2016-05-20] MEDS: AZTREONAM 1 GM in D5W MINI-BAG PLUS 50 ML IV SCH ×3 (01:11→15:58)
[2016-05-20] MEDS: oxyCODONE 5MG TAB PO PRN ×2 (04:31→13:19)
[2016-05-20] MEDS: metroNIDAZOLE (FLAGYL) 500 MG TAB PO SCH ×3 (05:17→22:09)
[2016-05-20 05:57] LABS: BASO % 0.7 % (0.0-1.0); EOS # 0.1 K/mm3 (0.0-0.50); EOS % 2.2 % (0.0-3.0); LARGE UNSTAINED CELL # 0.1 K/mm3 (0.0-0.4); LARGE UNSTAINED CELL % 2.9 % (0.0-4.0); LYMPH # 1.5 K/mm3 (1.5-4.5); LYMPH % 34.1 % (24.0-44.0); MEAN CORPUSCULAR HEMOGLOBIN 28.3 pg (27.0-33.0); MEAN CORPUSCULAR HGB CONC 32.1 g/dl (32.0-36.5); MEAN CORPUSCULAR VOLUME 88.2 fl (80.0-96.0); MONO # 0.2 K/mm3 (0.0-0.8); MONO % 5.4 % (0.0-5.0); NEUTROPHILS # 2.3 K/mm3 (1.8-7.7); NEUTROPHILS % 54.7 % (36.0-66.0); PLATELET COUNT, AUTOMATED 146 k/mm3 (150-450); RED CELL DISTRIBUTION WIDTH 13.1 % (11.5-14.5); WHITE BLOOD COUNT 4.3 K/mm3 (4.0-10.0)
[2016-05-20 06:27] LABS: ALBUMIN 2.3 GM/DL (3.2-5.2); ALBUMIN/GLOBULIN RATIO 0.66 (1.00-1.93); ALKALINE PHOSPHATASE 406 U/L (45-117); ALT/SGPT 25 U/L (12-78); ANION GAP 6 MEQ/L (8-16); AST/SGOT 25 U/L (15-37); BILIRUBIN,TOTAL 3.1 MG/DL (0.2-1.0); BLOOD UREA NITROGEN 13 MG/DL (7-18); CALCIUM LEVEL 8.5 MG/DL (8.5-10.1); CARBON DIOXIDE LEVEL 35 MEQ/L (21-32); CHLORIDE LEVEL 98 MEQ/L (98-107); CREATININE FOR GFR 0.46 MG/DL (0.55-1.02); GLOMERULAR FILTRATION RATE > 60.0 (>51); GLUCOSE, FASTING 93 MG/DL (70-105); MAGNESIUM LEVEL 1.5 MG/DL (1.8-2.4); POTASSIUM SERUM 3.1 MEQ/L (3.5-5.1); SODIUM LEVEL 139 MEQ/L (136-145); TOTAL PROTEIN 5.8 GM/DL (6.4-8.2)
[2016-05-20] MEDS: CALCIUM CARBONATE 500 MG CHEW U/D PO SCH ×2 (07:59→20:10)
[2016-05-20] MEDS: DULoxetine 30 MG CAP (CYMBALTA) PO SCH (08:00)
[2016-05-20] MEDS: clonazePAM 1 MG TAB PO SCH ×3 (08:00→20:11)
[2016-05-20] MEDS: hydroCHLOROthiazide 25 MG TAB PO SCH (08:00)
[2016-05-20] MEDS: MECLIZINE 25 MG TABLET PO SCH ×3 (08:00→20:11)
[2016-05-20] MEDS: oxyCODONE 40 MG CR TAB PO SCH ×2 (08:01→20:12)
[2016-05-20] MEDS: DOCUSATE SODIUM 100 MG CAP PO SCH ×3 (08:01→20:12)
[2016-05-20] MEDS: CETIRIZINE (ZyrTEC) 10 MG TAB PO SCH (08:01)
[2016-05-20] MEDS: FERROUS SULFATE 325MG TAB PO SCH (08:01)
[2016-05-20] MEDS: ATENOLOL 50 MG TAB PO SCH ×2 (08:08→20:12)
[2016-05-20] MEDS: ENOXAPARIN 40 MG/0.4 ML SYRINGE (J1650) SC SCH (08:08)
--- NOTE | 2016-05-20 08:25 | REPUSA ---
CLINICAL HISTORY: Abdominal pain. COMMENTS: Multiple abdominal views show dilated mid abdominal loops of bowel with air-fluid levels. This may r epresent obstruction versus ileus. Consider follow-up with CT. There is no evidence for free air, free fluid, masses, organomegaly or urinary calculi. Sort tissue and bony structures are intact. Surgical clips are present in the right upper quadrant. Right femoral hardware is noted. IMPRESSION: Dilated mid abdominal loops of bowel with air-fluid levels. This may represent obstruction versus il eus. Consider follow-up with CT. Thank you for your kind referral of this patient.
[2016-05-20] MEDS: VANCOMYCIN HCL 1,000 MG, VIAL MATE ADAPTER 1 EACH in D5W 250 ML IV SCH ×2 (10:45→22:09)
[2016-05-20] MEDS: POTASSIUM CHLORIDE 10% LIQ 20 MEQ/15 ML UDC PO SCH ×2 (10:47→20:11)
[2016-05-20] MEDS: AZELASTINE 137MCG NASAL SPY 30 ML (ASTELIN) SCH (10:47)
[2016-05-20] MEDS: amLODIPine 10 MG TAB PO SCH (12:27)
[2016-05-20] MEDS: PANTOPRAZOLE 20 MG TAB PO SCH (12:27)
[2016-05-20] MEDS: MAGNESIUM OXIDE 400 MG TAB (MAG-OX) PO SCH (15:58)
[2016-05-20] MEDS: PRAMIPEXOLE 0.25 MG TAB PO SCH (20:11)
[2016-05-20] MEDS ORDERED: [UNRECOGNIZED DRUG - OTHER] IV ONE (22:30)
[2016-05-21] MEDS: AZTREONAM 1 GM in D5W MINI-BAG PLUS 50 ML IV SCH ×3 (00:03→16:42)
[2016-05-21] MEDS: oxyCODONE 5MG TAB PO PRN ×3 (03:55→18:18)
[2016-05-21] MEDS: metroNIDAZOLE (FLAGYL) 500 MG TAB PO SCH ×3 (05:34→21:53)
[2016-05-21 05:54] LABS: BASO % 0.6 % (0.0-1.0); EOS # 0.1 K/mm3 (0.0-0.50); LARGE UNSTAINED CELL # 0.1 K/mm3 (0.0-0.4); LARGE UNSTAINED CELL % 2.6 % (0.0-4.0); LYMPH # 1.5 K/mm3 (1.5-4.5); LYMPH % 33.3 % (24.0-44.0); MEAN CORPUSCULAR HEMOGLOBIN 28.5 pg (27.0-33.0); MEAN CORPUSCULAR HGB CONC 32.1 g/dl (32.0-36.5); MEAN CORPUSCULAR VOLUME 88.9 fl (80.0-96.0); MONO # 0.2 K/mm3 (0.0-0.8); MONO % 4.7 % (0.0-5.0); NEUTROPHILS # 2.6 K/mm3 (1.8-7.7); NEUTROPHILS % 56.8 % (36.0-66.0); PLATELET COUNT, AUTOMATED 178 k/mm3 (150-450); RED CELL DISTRIBUTION WIDTH 13.3 % (11.5-14.5); WHITE BLOOD COUNT 4.6 K/mm3 (4.0-10.0)
[2016-05-21 06:00] VITALS: BP 121/75
[2016-05-21 06:41] LABS: ALBUMIN 2.2 GM/DL (3.2-5.2); ALBUMIN/GLOBULIN RATIO 0.79 (1.00-1.93); ALKALINE PHOSPHATASE 446 U/L (45-117); ALT/SGPT 21 U/L (12-78); ANION GAP 8 MEQ/L (8-16); AST/SGOT 26 U/L (15-37); BILIRUBIN,TOTAL 2.5 MG/DL (0.2-1.0); BLOOD UREA NITROGEN 12 MG/DL (7-18); CALCIUM LEVEL 8.1 MG/DL (8.5-10.1); CARBON DIOXIDE LEVEL 33 MEQ/L (21-32); CHLORIDE LEVEL 99 MEQ/L (98-107); CREATININE FOR GFR 0.44 MG/DL (0.55-1.02); GLOMERULAR FILTRATION RATE > 60.0 (>51); GLUCOSE, FASTING 109 MG/DL (70-105); MAGNESIUM LEVEL 1.5 MG/DL (1.8-2.4); POTASSIUM SERUM 3.7 MEQ/L (3.5-5.1); SODIUM LEVEL 140 MEQ/L (136-145)
[2016-05-21] MEDS: POTASSIUM CHLORIDE 10% LIQ 20 MEQ/15 ML UDC PO SCH ×2 (08:13→21:53)
[2016-05-21] MEDS: DULoxetine 30 MG CAP (CYMBALTA) PO SCH (08:14)
[2016-05-21] MEDS: CETIRIZINE (ZyrTEC) 10 MG TAB PO SCH (08:14)
[2016-05-21] MEDS: oxyCODONE 40 MG CR TAB PO SCH ×2 (08:14→21:52)
[2016-05-21] MEDS: MECLIZINE 25 MG TABLET PO SCH ×3 (08:14→21:53)
[2016-05-21] MEDS: clonazePAM 1 MG TAB PO SCH ×3 (08:14→21:53)
[2016-05-21] MEDS: ENOXAPARIN 40 MG/0.4 ML SYRINGE (J1650) SC SCH (08:14)
[2016-05-21] MEDS: CALCIUM CARBONATE 500 MG CHEW U/D PO SCH ×2 (08:15→21:52)
[2016-05-21] MEDS: DOCUSATE SODIUM 100 MG CAP PO SCH ×3 (08:15→21:53)
[2016-05-21] MEDS: ATENOLOL 50 MG TAB PO SCH ×2 (08:15→21:53)
[2016-05-21] MEDS: FERROUS SULFATE 325MG TAB PO SCH (08:15)
[2016-05-21] MEDS: hydroCHLOROthiazide 25 MG TAB PO SCH (08:15)
[2016-05-21] MEDS: AZELASTINE 137MCG NASAL SPY 30 ML (ASTELIN) SCH (08:16)
[2016-05-21] MEDS: MIRALAX *UNIT DOSE* 17GM PACKET PO SCH ×2 (09:01→21:52)
[2016-05-21] MEDS: MOM 30ML SUSPENSION UDC PO SCH ×2 (09:01→21:52)
[2016-05-21] MEDS: METOCLOPRAMIDE 5 MG TAB PO SCH ×3 (09:02→21:53)
[2016-05-21] MEDS: IBUPROFEN 600 MG TAB PO PRN (09:02)
[2016-05-21 10:51] VITALS: O2SAT 95
[2016-05-21] MEDS: PANTOPRAZOLE 20 MG TAB PO SCH (11:50)
[2016-05-21] MEDS: VANCOMYCIN HCL 1,000 MG, VIAL MATE ADAPTER 1 EACH in D5W 250 ML IV SCH (11:50)
[2016-05-21] MEDS: amLODIPine 10 MG TAB PO SCH (11:51)
[2016-05-21 14:00] VITALS: BP 120/72
[2016-05-21] MEDS: MAGNESIUM OXIDE 400 MG TAB (MAG-OX) PO SCH (15:02)
[2016-05-21] MEDS: PRAMIPEXOLE 0.25 MG TAB PO SCH (21:53)
[2016-05-21 22:00] VITALS: BP 125/65
[2016-05-21 23:45] VITALS: O2SAT 95
[2016-05-22] MEDS: VANCOMYCIN HCL 1,000 MG, VIAL MATE ADAPTER 1 EACH in D5W 250 ML IV SCH ×2 (00:38→11:00)
--- NOTE | 2016-05-22 00:40 | PHACANCOPD ---
PHARMACY VANCOMYCIN DOSING Pt Demographics Demographics Patient Age:55 , Weight:72.100 , Gender: female Adjusted Body Weight Date: 05/18/16, Adjusted Body Weight: Kg Vancomycin Vancomycin indication: MRSA coverage Vancomycin Target Ranges: 15-20 mcg/ml Vancomycin Load Y/N: Yes Load Dose Date Time Vancomycin Load Dose: 1000mg Date: 05/18 Time: 15:30, 18:00 Vancomycin Dose Date: 05/18/16. Current Vancomycin Dose: [1g IV q12h @18] Intermittent Dosing?: No Labs Micro Microbiology 05/16/16 Blood Culture - Final, Complete NO GROWTH AFTER 5 DAYS 05/16/16 Blood Culture - Final, Complete NO GROWTH AFTER 5 DAYS 05/17/16 Gram Stain - Final, Complete 05/17/16 Sputum Culture - Final, Complete Pseudomonas Aeruginosa 05/13/16 Influenza Virus Type A Antigen - Final, Complete 05/13/16 Influenza Virus Type B Antigen - Final, Complete 05/16/16 Urine Culture - Final, Complete Creatinine Clearance Date:05/18/16. Creatinine Clearance: [>100 ml/min]. Assessment and Plan Maintaining Current Dose?: Yes Reason for dose change: No Dose Change Pharmacist Note Pharmacist Note Date: 05/22/16. Pharmacist note:Vancomycin trough reported as 13.8 (collected @ 23:11)Will continue at current regimen of 1 Gram IV [id number] and continue to monitor Date: 05/19/16. Pharmacist note: trough was drawn 30 minutes before the 3rd dose and came back at 9.9. I have rescheduled her dosing to restart 5 hours after the 3rd dose. We will continue to monitor. Date: 05/18/16. Pharmacist note: pt was previously on aztreonam and metronidazole, added vancomycin today due to worsening symptoms. She does not have a MRSA Hx and has not recently been on vancomycin at our facility. I have essentially given her a 2g load and started 1g q12h. We will continue to monitor and order a trough as necessary. RANDEE CORDOBA [facility] May 22, 2016 00:40
[2016-05-22] MEDS: oxyCODONE 5MG TAB PO PRN ×3 (01:25→16:50)
[2016-05-22] MEDS: AZTREONAM 1 GM in D5W MINI-BAG PLUS 50 ML IV SCH ×3 (02:12→16:49)
[2016-05-22] MEDS: metroNIDAZOLE (FLAGYL) 500 MG TAB PO SCH ×3 (05:42→21:46)
[2016-05-22 06:00] VITALS: BP 133/64
[2016-05-22] MEDS ORDERED: MAGNESIUM CITRATE 300 ML BTL PO ONE (07:15)
[2016-05-22 08:00] VITALS: O2SAT 93
[2016-05-22] MEDS: ENOXAPARIN 40 MG/0.4 ML SYRINGE (J1650) SC SCH (08:34)
[2016-05-22] MEDS: ATENOLOL 50 MG TAB PO SCH ×2 (08:35→21:45)
[2016-05-22] MEDS: CETIRIZINE (ZyrTEC) 10 MG TAB PO SCH (08:35)
[2016-05-22] MEDS: DOCUSATE SODIUM 100 MG CAP PO SCH ×3 (08:35→21:51)
[2016-05-22] MEDS: MOM 30ML SUSPENSION UDC PO SCH ×2 (08:36→21:00)
[2016-05-22] MEDS: DULoxetine 30 MG CAP (CYMBALTA) PO SCH (08:36)
[2016-05-22] MEDS: clonazePAM 1 MG TAB PO SCH ×3 (08:36→21:44)
[2016-05-22] MEDS: POTASSIUM CHLORIDE 10% LIQ 20 MEQ/15 ML UDC PO SCH ×2 (08:50→21:48)
[2016-05-22] MEDS: MECLIZINE 25 MG TABLET PO SCH ×3 (08:50→21:45)
[2016-05-22] MEDS: hydroCHLOROthiazide 25 MG TAB PO SCH (08:51)
[2016-05-22] MEDS: CALCIUM CARBONATE 500 MG CHEW U/D PO SCH ×2 (08:51→21:00)
[2016-05-22] MEDS: oxyCODONE 40 MG CR TAB PO SCH ×2 (08:54→21:47)
[2016-05-22] MEDS: FERROUS SULFATE 325MG TAB PO SCH (08:54)
[2016-05-22] MEDS: METOCLOPRAMIDE 5 MG TAB PO SCH ×3 (08:55→21:45)
[2016-05-22] MEDS: AZELASTINE 137MCG NASAL SPY 30 ML (ASTELIN) SCH (08:55)
[2016-05-22] MEDS: MIRALAX *UNIT DOSE* 17GM PACKET PO SCH ×2 (09:00→21:00)
[2016-05-22] MEDS: amLODIPine 10 MG TAB PO SCH (12:52)
[2016-05-22] MEDS: PANTOPRAZOLE 20 MG TAB PO SCH (12:52)
[2016-05-22] MEDS ORDERED: NON-FORMULARY 1 EA EA IV ONE (13:00)
--- NOTE | 2016-05-22 13:54 | IPNPDOC ---
Assessment/Plan Date Seen The patient was seen on 05/20/16. 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 Plan / VTE VTE Prophylaxis Ordered?: Yes Subjective Review of Systems CC/HPI The patient is a 55-year-old female admitted with a reason for visit of Cholethiasis. Events since last encounter denies any fever or chills, denies any shortness of breath , denies any abdominal pain any nausea or vomiting. Objective Physical Examination General Exam: Positive: Alert, No Acute Distress Eye Exam: Positive: Conjunctiva & lids normal, EOMI, PERRLA, Negative: Sclera icteric ENT Exam: Positive: Mucous membr. moist/pink, Other ENT (tracheostomy in place) , Pharynx Normal Neck Exam: Positive: Supple, Negative: JVD, thyromegaly Chest Exam: Positive: Clear to auscultation, Normal air movement Heart Exam: Positive: Normal S1, Normal S2, Rate Normal, Regular Rhythm, Negative: Murmurs, Rubs Abdomen Exam: Positive: Normal bowel sounds, Soft, Tenderness, Negative: Hepatospenomegaly Extremity Exam: Positive: Edema, Normal pulses, Negative: Clubbing, Cyanosis Vital Signs/I&O Vital Signs Date Time Temp Pulse Resp B/P Pulse Ox O2 Delivery O2 Flow Rate FiO2 05/20/16 13:49 18 05/20/16 12:27 85 110/56 05/20/16 12:00 98.7 85 Trach Collar 05/20/16 08:00 35 05/17/16 21:14 10.0 I&O- Last 24 Hours up to 6 AM 05/20/16 06:00 Intake Total 1450 ml Output Total 300 ml Balance 1150 ml Laboratory Data Labs 24H Laboratory Tests 2 05/19/16 17:30: Vancomycin Level Trough 9.9L 05/20/16 05:25: Blood Urea Nitrogen 13, Creatinine 0.46L, Sodium Level 139, Potassium Level 3.1L , Chloride Level 98, Carbon Dioxide Level 35H, Calcium Level 8.5, Aspartate Amino Transf (AST/SGOT) 25, Alanine Aminotransferase (ALT/SGPT) 25, Alkaline Phosphatase 406H, Total Bilirubin 3.1#H, Total Protein 5.8L, Albumin 2.3L, Albumin/Globulin Ratio 0.66L, Anion Gap 6L, White Blood Count 4.3, Red Blood Count 3.04L, Hemoglobin 8.6L, Hematocrit 26.8L, Mean Corpuscular Volume 88.2, Mean Corpuscular Hemoglobin 28.3, Mean Corpuscular Hemoglobin Concent 32.1, Red Cell Distribution Width 13.1, Platelet Count 146L, Neutrophils (%) (Auto) 54.7, Lymphocytes (%) (Auto) 34.1, Monocytes (%) (Auto) 5.4H, Eosinophils (%) (Auto) 2.2, Basophils (%) (Auto) 0.7, Neutrophils # (Auto) 2.3, Lymphocytes # (Auto) 1.5, Monocytes # (Auto) 0.2, Eosinophils # (Auto) 0.1, Basophils # (Auto) 0.0, Glomerular Filtration Rate > 60.0, Large Unclassified Cells # 0.1, Large Unclassified Cells % 2.9, Magnesium Level 1.5L CBC/BMP Laboratory Tests 05/20/16 05:25 Calcium Level 8.5, Aspartate Amino Transf (AST/SGOT) 25, Alanine Aminotransferase (ALT/SGPT) 25, Alkaline Phosphatase 406 H, Total Bilirubin 3.1 #H, Total Protein 5.8 L, Albumin 2.3 L, Red Blood Count 3.04 L, Mean Corpuscular Volume 88.2, Mean Corpuscular Hemoglobin 28.3, Mean Corpuscular Hemoglobin Concent 32.1, Red Cell Distribution Width 13.1, Neutrophils (%) (Auto ) 54.7, Lymphocytes (%) (Auto) 34.1, Monocytes (%) (Auto) 5.4 H, Eosinophils (% ) (Auto) 2.2, Basophils (%) (Auto) 0.7, Neutrophils # (Auto) 2.3, Lymphocytes # (Auto) 1.5, Monocytes # (Auto) 0.2, Eosinophils # (Auto) 0.1, Basophils # (Auto ) 0.0 Microbiology Microbiology 05/16/16 Blood Culture - Preliminary, Resulted No Growth after 72 hours. All specime... 05/16/16 Blood Culture - Preliminary, Resulted No Growth after 72 hours. All specime... 05/17/16 Gram Stain - Final, Complete 05/17/16 Sputum Culture - Final, Complete Pseudomonas Aeruginosa 05/13/16 Influenza Virus Type A Antigen - Final, Complete 05/13/16 Influenza Virus Type B Antigen - Final, Complete 05/16/16 Urine Culture - Final, Complete JOVAN CRANDALL MD May 20, 2016 15:00
[2016-05-22 14:00] VITALS: BP 127/66
[2016-05-22] MEDS ORDERED: [UNRECOGNIZED DRUG - OTHER] IV ONE (14:00)
--- NOTE | 2016-05-22 14:00 | IPNPDOC ---
Assessment/Plan Date Seen The patient was seen on 05/22/16. 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 (3) Hepatitis B Status: Chronic (4) Hepatitis C Status: Chronic (5) Hypertension Status: Chronic Response to Treatment: Stable (6) GERD (gastroesophageal reflux disease) Status: Chronic (7) Psoriasis Status: Chronic (8) History of breast cancer Status: Chronic Problem Text: treated with mastectomy and chemotherapy 23 years ago. Plan / VTE VTE Prophylaxis Ordered?: Yes Subjective Review of Systems CC/HPI The patient is a 55-year-old female admitted with a reason for visit of Cholethiasis. Events since last encounter today patient complaining of some throat swelling and feels like one of her angioedema attacks arre starting Objective Physical Examination General Exam: Positive: Alert, No Acute Distress Eye Exam: Positive: Conjunctiva & lids normal, EOMI, PERRLA, Negative: Sclera icteric ENT Exam: Positive: Mucous membr. moist/pink, Other ENT (tracheostomy in place) , Pharynx Normal Neck Exam: Positive: Supple, Negative: JVD, thyromegaly Chest Exam: Positive: Clear to auscultation, Normal air movement Heart Exam: Positive: Normal S1, Normal S2, Rate Normal, Regular Rhythm, Negative: Murmurs, Rubs Abdomen Exam: Positive: Normal bowel sounds, Soft, Tenderness, Negative: Hepatospenomegaly Extremity Exam: Positive: Edema, Normal pulses, Negative: Clubbing, Cyanosis Vital Signs/I&O Vital Signs Date Time Temp Pulse Resp B/P Pulse Ox O2 Delivery O2 Flow Rate FiO2 05/22/16 12:52 64 133/64 05/22/16 11:33 16 05/22/16 06:00 98.7 95 05/21/16 23:45 Trach Collar 35 05/21/16 17:02 4.0 I&O- Last 24 Hours up to 6 AM 05/22/16 05:59 Intake Total 1690 ml Balance 1690 ml Laboratory Data Labs 24H Laboratory Tests 2 05/21/16 23:11: Vancomycin Level Trough 13.8 Microbiology Microbiology 05/16/16 Blood Culture - Final, Complete NO GROWTH AFTER 5 DAYS 05/16/16 Blood Culture - Final, Complete NO GROWTH AFTER 5 DAYS 05/17/16 Gram Stain - Final, Complete 05/17/16 Sputum Culture - Final, Complete Pseudomonas Aeruginosa 05/13/16 Influenza Virus Type A Antigen - Final, Complete 05/13/16 Influenza Virus Type B Antigen - Final, Complete 05/16/16 Urine Culture - Final, Complete JOVAN CRANDALL MD May 22, 2016 14:00
[2016-05-22 14:11] LABS: C1 ESTER INHIB. NON FUNCTIONAL 9 mg/dL (21-39); C1 ESTERASE INHIB. FUNCTIONAL 40 (.)
[2016-05-22] MEDS: MAGNESIUM OXIDE 400 MG TAB (MAG-OX) PO SCH (15:03)
[2016-05-22] MEDS ORDERED: SODIUM CHLORIDE 0.9% INJ 10 ML SYR IV PRN (15:15)
[2016-05-22] MEDS: PRAMIPEXOLE 0.25 MG TAB PO SCH (21:44)
[2016-05-22 22:00] VITALS: BP 110/67
[2016-05-23] MEDS: AZTREONAM 1 GM in D5W MINI-BAG PLUS 50 ML IV SCH ×2 (00:02→08:29)
[2016-05-23] MEDS: oxyCODONE 5MG TAB PO PRN ×3 (01:26→22:08)
[2016-05-23] MEDS: metroNIDAZOLE (FLAGYL) 500 MG TAB PO SCH ×3 (05:36→20:30)
[2016-05-23 05:52] LABS: MEAN CORPUSCULAR HEMOGLOBIN 28.3 pg (27.0-33.0); MEAN CORPUSCULAR HGB CONC 31.8 g/dl (32.0-36.5); MEAN CORPUSCULAR VOLUME 89.1 fl (80.0-96.0); RED CELL DISTRIBUTION WIDTH 14.6 % (11.5-14.5); WHITE BLOOD COUNT 5.1 K/mm3 (4.0-10.0)
[2016-05-23 06:00] VITALS: BP 114/67
[2016-05-23 06:25] LABS: ALBUMIN 2.3 GM/DL (3.2-5.2); ALBUMIN/GLOBULIN RATIO 0.77 (1.00-1.93); ALKALINE PHOSPHATASE 586 U/L (45-117); ALT/SGPT 18 U/L (12-78); ANION GAP 8 MEQ/L (8-16); AST/SGOT 40 U/L (15-37); BILIRUBIN,TOTAL 2.7 MG/DL (0.2-1.0); BLOOD UREA NITROGEN 14 MG/DL (7-18); CALCIUM LEVEL 8.5 MG/DL (8.5-10.1); CARBON DIOXIDE LEVEL 31 MEQ/L (21-32); CHLORIDE LEVEL 103 MEQ/L (98-107); GLUCOSE, FASTING 92 MG/DL (70-105); MAGNESIUM LEVEL 1.9 MG/DL (1.8-2.4); POTASSIUM SERUM 4.1 MEQ/L (3.5-5.1); SODIUM LEVEL 142 MEQ/L (136-145); TOTAL PROTEIN 5.3 GM/DL (6.4-8.2)
[2016-05-23 06:44] LABS: CREATININE FOR GFR 0.68 MG/DL (0.55-1.02); GLOMERULAR FILTRATION RATE > 60.0 (>51)
[2016-05-23] MEDS: ENOXAPARIN 40 MG/0.4 ML SYRINGE (J1650) SC SCH (08:29)
[2016-05-23] MEDS: POTASSIUM CHLORIDE 10% LIQ 20 MEQ/15 ML UDC PO SCH ×2 (08:30→20:30)
[2016-05-23] MEDS: METOCLOPRAMIDE 5 MG TAB PO SCH ×3 (08:30→20:32)
[2016-05-23] MEDS: MOM 30ML SUSPENSION UDC PO SCH ×2 (08:30→20:30)
[2016-05-23] MEDS: CALCIUM CARBONATE 500 MG CHEW U/D PO SCH ×2 (08:30→20:30)
[2016-05-23] MEDS: clonazePAM 1 MG TAB PO SCH ×3 (08:31→20:32)
[2016-05-23] MEDS: DOCUSATE SODIUM 100 MG CAP PO SCH ×3 (08:31→20:31)
[2016-05-23] MEDS: DULoxetine 30 MG CAP (CYMBALTA) PO SCH (08:31)
[2016-05-23] MEDS: hydroCHLOROthiazide 25 MG TAB PO SCH (08:32)
[2016-05-23] MEDS: CETIRIZINE (ZyrTEC) 10 MG TAB PO SCH (08:32)
[2016-05-23] MEDS: ATENOLOL 50 MG TAB PO SCH ×2 (08:32→20:31)
[2016-05-23] MEDS: FERROUS SULFATE 325MG TAB PO SCH (08:32)
[2016-05-23] MEDS: MECLIZINE 25 MG TABLET PO SCH ×3 (08:32→20:31)
[2016-05-23] MEDS: SODIUM CHLORIDE 0.9% INJ 10 ML SYR IV SCH (08:33)
[2016-05-23] MEDS: oxyCODONE 40 MG CR TAB PO SCH ×2 (08:33→20:31)
[2016-05-23] MEDS: MIRALAX *UNIT DOSE* 17GM PACKET PO SCH ×2 (08:33→20:30)
[2016-05-23] MEDS: AZELASTINE 137MCG NASAL SPY 30 ML (ASTELIN) SCH (08:37)
[2016-05-23] MEDS: amLODIPine 10 MG TAB PO SCH (12:00)
[2016-05-23] MEDS ORDERED: FUROSEMIDE 40 MG/4 ML VIAL (J1940) IV ONE (12:00)
--- NOTE | 2016-05-23 12:20 | IPNPDOC ---
Assessment/Plan Date Seen The patient was seen on 05/23/16. Problems Problems: (1) Hypoxia Status: Acute Problem Text: pateint does have some bilateral basal crackles could be mild fluid overload . She does have severe kyphoscoliosis causing restrictive lung disease and contributing to her hypoxia. May also have sleep apnea. will get a chest xray , echo and give iv lasix. May need to go home with home oxygen. 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 (4) Hepatitis B Status: Chronic (5) Hepatitis C Status: Chronic (6) Hypertension Status: Chronic Response to Treatment: Stable (7) GERD (gastroesophageal reflux disease) Status: Chronic (8) Psoriasis Status: Chronic (9) History of breast cancer Status: Chronic Problem Text: treated with mastectomy and chemotherapy 23 years ago. Plan / VTE VTE Prophylaxis Ordered?: Yes Subjective Review of Systems CC/HPI The patient is a 55-year-old female admitted with a reason for visit of Cholethiasis. Events since last encounter pateint denies any SOB , denies any throat pain , denies any abdominal pain nausea or vomiting or diarrhea . However continues to require 2 L oxygen during day and night. no fever or chills, yesterday her trach tube had come out which was replaced by a new one of size 6. Objective Physical Examination General Exam: Positive: Alert, No Acute Distress Eye Exam: Positive: Conjunctiva & lids normal, EOMI, PERRLA, Negative: Sclera icteric ENT Exam: Positive: Mucous membr. moist/pink, Other ENT (tracheostomy in place) , Pharynx Normal Neck Exam: Positive: Supple, Negative: JVD, thyromegaly Chest Exam: Positive: Clear to auscultation, Normal air movement Heart Exam: Positive: Normal S1, Normal S2, Rate Normal, Regular Rhythm, Negative: Murmurs, Rubs Abdomen Exam: Positive: Normal bowel sounds, Soft, Tenderness, Negative: Hepatospenomegaly Extremity Exam: Positive: Edema, Normal pulses, Negative: Clubbing, Cyanosis Vital Signs/I&O Vital Signs Date Time Temp Pulse Resp B/P Pulse Ox O2 Delivery O2 Flow Rate FiO2 05/23/16 08:33 18 Nasal Cannula 2.0 95 05/23/16 08:32 72 114/67 05/23/16 06:00 98.5 94 I&O- Last 24 Hours up to 6 AM 05/23/16 06:00 Intake Total 1630 ml Output Total 1400 ml Balance 230 ml Laboratory Data Labs 24H Laboratory Tests 2 05/23/16 05:35: Blood Urea Nitrogen 14, Creatinine 0.68#, Sodium Level 142, Potassium Level 4.1 , Chloride Level 103, Carbon Dioxide Level 31, Calcium Level 8.5, Aspartate Amino Transf (AST/SGOT) 40H, Alanine Aminotransferase (ALT/SGPT) 18, Alkaline Phosphatase 586H, Total Bilirubin 2.7H, Total Protein 5.3L, Albumin 2.3L, Albumin/Globulin Ratio 0.77L, Anion Gap 8, Glomerular Filtration Rate > 60.0, Magnesium Level 1.9 CBC/BMP Laboratory Tests 05/23/16 05:35 Calcium Level 8.5, Aspartate Amino Transf (AST/SGOT) 40 H, Alanine Aminotransferase (ALT/SGPT) 18, Alkaline Phosphatase 586 H, Total Bilirubin 2.7 H, Total Protein 5.3 L, Albumin 2.3 L, Red Blood Count 2.95 L, Mean Corpuscular Volume 89.1, Mean Corpuscular Hemoglobin 28.3, Mean Corpuscular Hemoglobin Concent 31.8 L, Red Cell Distribution Width 14.6 H Microbiology Microbiology 05/16/16 Blood Culture - Final, Complete NO GROWTH AFTER 5 DAYS 05/16/16 Blood Culture - Final, Complete NO GROWTH AFTER 5 DAYS 05/17/16 Gram Stain - Final, Complete 05/17/16 Sputum Culture - Final, Complete Pseudomonas Aeruginosa 05/13/16 Influenza Virus Type A Antigen - Final, Complete 05/13/16 Influenza Virus Type B Antigen - Final, Complete 05/16/16 Urine Culture - Final, Complete JOVAN CRANDALL MD May 23, 2016 12:20
[2016-05-23] MEDS: PANTOPRAZOLE 20 MG TAB PO SCH (12:51)
[2016-05-23] MEDS: ACETAMINOPHEN TAB 650MG DOSE (2X325MG) PO PRN (12:51)
--- NOTE | 2016-05-23 13:01 | REP ---
Clinical: Hypoxia. Comparison: 05/16/2016. Findings: Tracheostomy and [id number] in stable position. Chronic cardiomegaly and interstitial changes are appreciated. Left basilar atelectasis and possible small left pleural effusion cannot be excluded. No pneumothorax. Skeletal structures demonstrate age-related degenerative change. Impression: Trace left basilar atelectasis and small left pleural effusion. Signed by Rodri Hayes MD 05/23/2016 12:53 P
[2016-05-23 14:00] VITALS: BP 100/56
[2016-05-23] MEDS: IPRATROPIUM 0.5MG/ALBUTEROL 2.5MG INH SOL UD 3ML (DUONEB)(J7620) NEB SCH (15:29)
[2016-05-23] MEDS: MAGNESIUM OXIDE 400 MG TAB (MAG-OX) PO SCH (17:12)
[2016-05-23] MEDS: PRAMIPEXOLE 0.25 MG TAB PO SCH (20:31)
[2016-05-23] MEDS: IBUPROFEN 600 MG TAB PO PRN (20:32)
[2016-05-23 22:00] VITALS: BP 101/65
[2016-05-24] MEDS: AZTREONAM 1 GM in D5W MINI-BAG PLUS 50 ML IV SCH (00:14)
[2016-05-24] MEDS: metroNIDAZOLE (FLAGYL) 500 MG TAB PO SCH ×2 (05:26→13:44)
[2016-05-24] MEDS: oxyCODONE 5MG TAB PO PRN ×2 (05:40→13:45)
[2016-05-24 06:00] VITALS: BP 104/62
[2016-05-24] MEDS: IPRATROPIUM 0.5MG/ALBUTEROL 2.5MG INH SOL UD 3ML (DUONEB)(J7620) NEB SCH ×2 (07:10→15:03)
[2016-05-24] MEDS: DULoxetine 30 MG CAP (CYMBALTA) PO SCH (08:49)
[2016-05-24] MEDS: DOCUSATE SODIUM 100 MG CAP PO SCH (08:49)
[2016-05-24] MEDS: CALCIUM CARBONATE 500 MG CHEW U/D PO SCH (08:49)
[2016-05-24] MEDS: FERROUS SULFATE 325MG TAB PO SCH (08:49)
[2016-05-24] MEDS: MECLIZINE 25 MG TABLET PO SCH ×2 (08:50→13:46)
[2016-05-24] MEDS: METOCLOPRAMIDE 5 MG TAB PO SCH ×2 (08:50→13:47)
[2016-05-24] MEDS: POTASSIUM CHLORIDE 10% LIQ 20 MEQ/15 ML UDC PO SCH (08:50)
[2016-05-24] MEDS: ATENOLOL 50 MG TAB PO SCH (08:50)
[2016-05-24] MEDS: hydroCHLOROthiazide 25 MG TAB PO SCH (08:51)
[2016-05-24] MEDS: CETIRIZINE (ZyrTEC) 10 MG TAB PO SCH (08:51)
[2016-05-24] MEDS: clonazePAM 1 MG TAB PO SCH ×2 (08:51→13:53)
[2016-05-24] MEDS: oxyCODONE 40 MG CR TAB PO SCH (08:51)
[2016-05-24] MEDS: SODIUM CHLORIDE 0.9% INJ 10 ML SYR IV SCH (08:52)
[2016-05-24] MEDS: MOM 30ML SUSPENSION UDC PO SCH (08:52)
[2016-05-24] MEDS: ENOXAPARIN 40 MG/0.4 ML SYRINGE (J1650) SC SCH (08:52)
[2016-05-24] MEDS: AZELASTINE 137MCG NASAL SPY 30 ML (ASTELIN) SCH (08:52)
[2016-05-24] MEDS: MIRALAX *UNIT DOSE* 17GM PACKET PO SCH (08:52)
[2016-05-24 13:41] VITALS: BP 104/62
[2016-05-24] MEDS: amLODIPine 10 MG TAB PO SCH (13:41)
[2016-05-24] MEDS: PANTOPRAZOLE 20 MG TAB PO SCH (13:43)
[2016-05-24] MEDS: MAGNESIUM OXIDE 400 MG TAB (MAG-OX) PO SCH (13:46)
[2016-05-24 13:55] VITALS: BP 111/64
[2016-05-24 14:24] LABS: ALBUMIN 2.5 GM/DL (3.2-5.2); ALBUMIN/GLOBULIN RATIO 0.74 (1.00-1.93); ALKALINE PHOSPHATASE 632 U/L (45-117); ALT/SGPT 19 U/L (12-78); ANION GAP 5 MEQ/L (8-16); AST/SGOT 34 U/L (15-37); BILIRUBIN,TOTAL 1.8 MG/DL (0.2-1.0); BLOOD UREA NITROGEN 16 MG/DL (7-18); CALCIUM LEVEL 8.1 MG/DL (8.5-10.1); CARBON DIOXIDE LEVEL 35 MEQ/L (21-32); CHLORIDE LEVEL 103 MEQ/L (98-107); GLOMERULAR FILTRATION RATE > 60.0 (>51); GLUCOSE, FASTING 103 MG/DL (70-105); POTASSIUM SERUM 4.1 MEQ/L (3.5-5.1); SODIUM LEVEL 143 MEQ/L (136-145); TOTAL PROTEIN 5.9 GM/DL (6.4-8.2)
--- NOTE | 2016-05-24 15:23 | ECHO ---
DATE OF PROCEDURE: 05/24/2016 REFERRING PHYSICIAN: Dr. Dena Huerta REASON FOR THE ECHOCARDIOGRAM: Shortness of breath, status post cholecystectomy. 2D MEASUREMENT: IVS - 1.0 cm LV - 4.3 cm LVPW - 1.1 cm LA - 3.7 cm Aorta - 2.9 cm DOPPLER MEASUREMENT: Peak velocity across the aortic valve - 1.5 m/s Peak velocity across the LVOT - 1.3 m/s Mitral E - 1.2, Mitral A 1.0 with a ratio of 1.2 Maximum tricuspid valve velocity - 2.6 m/s 2D COMMENTS: 1. Normal left ventricular size, wall thickness and normal global left ventricular systolic function. The estimated left ventricular systolic ejection fraction is 65 to 70%. 2. Normal left atrium. Normal right atrium and right ventricle. 3. The atrial septum appear to be normal without evidence of defect or shunt. 4. Normal aortic root. 5. No pericardial effusion seen. 6. Mildly calcified aortic valve with normal leaflet excursion. Mildly calcified mitral annulus with normal anterior mitral valve leaflet motion. Normal tricuspid valve and pulmonic valve. The proximal pulmonary artery branches were not well visualized. 7. The inferior vena cava was not well visualized. Doppler detects mild aortic regurgitation, trace mitral regurgitation, and mild tricuspid regurgitation. The calculated pulmonary artery systolic pressure varies between 30 to 40 mmHg. Abnormal relaxation pattern was noted across the mitral valve annulus consistent with a pseudo normal pattern, left ventricular end diastolic pressure mildly elevated. IMPRESSION: 1. Normal global left ventricular systolic function. There were features of left ventricular diastolic dysfunction as mentioned above. 2. Aortic valve sclerosis with mild aortic regurgitation but no aortic stenosis. 3. Mitral annulus calcification with trace mitral regurgitation. 4. Mild tricuspid regurgitation with mild pulmonary hypertension.
--- NOTE | 2016-05-27 09:48 | DSES ---
DATE OF ADMISSION: 05/14/2016 DATE OF DISCHARGE: 05/24/2016 ADMISSION DIAGNOSIS: Acute cholecystitis. DISCHARGE DIAGNOSIS: Acute cholecystitis with cholelithiasis. HOSPITAL COURSE: The patient is a 55-year-old female who had a complicated medical history of Hep C, C1 esterase deficiency and hereditary angioedema, hypertension, osteoporosis, and a chronic trache. She presented with right upper quadrant abdominal pain as well as constipation. She was admitted for this abdominal pain secondary to possible acute cholecystitis with cholelithiasis versus constipation. She was given multiple laxatives without any improvement. Her abdominal pain continued to get worse. On the morning of 05/15, plan was to proceed with laparoscopic cholecystectomy for acute cholecystitis. She underwent the procedure without any difficulties. Postoperatively, right upper quadrant pain was persistent, it took a long time to improve. There was concern for possible abdominal injury due to persistent elevated bilirubins. However, HIDA scan done on 05/19 did not show any extravasation of contrast and there was contrast that went into the small bowel, it was just slightly delayed. This was likely due to swelling from a combination of surgery as well as her angioedema. She continued to take her C1 esterase inhibitor while she was in the hospital. She had no problems with nausea or vomiting, tolerating diet. She had multiple bowel movements again that did not improve her pain. However, due to this persistent pain and nonspecific nature, she was kept in the hospital for a few days. White count remained normal the entire time. She remained afebrile. By the morning of 05/21/2016, her abdominal pain was starting to improve. She was starting to increase her ambulation. She also was having some slight productive cough and medicine got involved and they started to treat her for possible chronic bronchitis. She has had these multiple bronchitis issues in the past and she felt like her symptoms were consistent with the previous episodes of those that she has had. As her cough improved and her breathing improved by the , she felt better and was ready to go home. She just wanted to give it another day or two since she lives alone. She wanted to make sure she was feeling better. On the morning of the , Dr. Valenzuela was covering and before he had a chance to get to her for discharge due to him being in the operating room, the patient decided to leave against medical advise (AMA) because she did not want to wait for him to come and discharge her. The patient was discharged home to return to home care that she already had previously and was asked to follow up with me in the office in 2 weeks by the nursing staff, however, she did not receive any paperwork on discharge from Dr. Valenzuela.
== END 2016-05-24 17:00 | disposition left against medical advice (07) | DRG 263 ==
LOC: M ED 22:31 → M ED INP 05-14 04:00 → M MSPAV 05-14 05:35 → M MS5PR 05-15 12:28 → M PCU 05-15 13:42 → M MS5PR 05-20 19:14
PROVIDERS: ADMIT Surgery; ATTEND Surgery
PROC: 0FT44ZZ Resection of Gallbladder, Percutaneous Endoscopic Approach (ICD-10-PCS; principal; 2016-05-15 10:30)
DX: K80.00 Calculus of gallbladder with acute cholecystitis without obstruction (principal); E87.0 Hyperosmolality and hypernatremia; D84.1 Defects in the complement system; Z93.0 Tracheostomy status; M41.9 Scoliosis, unspecified; B19.10 Unspecified viral hepatitis B without hepatic coma; J98.11 Atelectasis; L40.9 Psoriasis, unspecified; E87.6 Hypokalemia; M81.0 Age-related osteoporosis without current pathological fracture; M51.9 Unspecified thoracic, thoracolumbar and lumbosacral intervertebral disc disorder; K21.9 Gastro-esophageal reflux disease without esophagitis; K59.09 Other constipation; D64.9 Anemia, unspecified; I10 Essential (primary) hypertension; M54.9 Dorsalgia, unspecified; B19.20 Unspecified viral hepatitis C without hepatic coma; Z90.12 Acquired absence of left breast and nipple; Z92.21 Personal history of antineoplastic chemotherapy; Z98.51 Tubal ligation status; Z88.0 Allergy status to penicillin; Z88.5 Allergy status to narcotic agent; Z88.6 Allergy status to analgesic agent; Z88.8 Allergy status to other drugs, medicaments and biological substances; Z85.3 Personal history of malignant neoplasm of breast; Z79.899 Other long term (current) drug therapy

== ENCOUNTER 2016-06-07 08:08 | Inpatient (IN) | payer OTHER ==
[~2016-06-07] VITALS: Ht 152.4 cm; Wt 64.1 kg
[~2016-06-07 08:08] MED LIST changes: +AZEL0.1S3; +CITRSOL8 PO; +OXYC-517 PO; -OXYCO5TA PO; +VITA50003 PO
[2016-06-07] MEDS ORDERED: oxyCODONE 5MG TAB As Ordered ONE (09:22)
[2016-06-07 09:25] LABS: BASO % 0.4 % (0.0-1.0); EOS # 0.1 K/mm3 (0.0-0.50); EOS % 1.5 % (0.0-3.0); LARGE UNSTAINED CELL # 0.1 K/mm3 (0.0-0.4); LARGE UNSTAINED CELL % 2.9 % (0.0-4.0); LYMPH # 1.4 K/mm3 (1.5-4.5); LYMPH % 33.9 % (24.0-44.0); MEAN CORPUSCULAR HEMOGLOBIN 28.5 pg (27.0-33.0); MEAN CORPUSCULAR HGB CONC 32.4 g/dl (32.0-36.5); MONO # 0.3 K/mm3 (0.0-0.8); MONO % 6.2 % (0.0-5.0); NEUTROPHILS # 2.2 K/mm3 (1.8-7.7); NEUTROPHILS % 55.2 % (36.0-66.0); PLATELET COUNT, AUTOMATED 191 k/mm3 (150-450); RED CELL DISTRIBUTION WIDTH 14.2 % (11.5-14.5)
--- NOTE | 2016-06-07 09:56 | REP ---
Clinical: Status post cholecystectomy with continued abdominal pain. Comparison: 05/14/2016. Findings: The patient is status post cholecystectomy with clips in the gallbladder fossa. There is a small to moderate amount of free fluid noted predominantly centered in the region of the gallbladder fossa and upper abdomen extending along the pericolic gutters into the pelvis. No discrete loculated or drainable collection is appreciated. However evaluation is significantly limited by the lack of both oral and intravenous contrast material. No free air is identified. Liver again demonstrates apparent intrahepatic biliary ductal dilatation along with findings to suggest stable hepatosplenomegaly. 2.8 cm right adrenal mass unchanged. Kidneys without evidence for hydronephrosis. There is no evidence for bowel obstruction. Pelvis demonstrates normal bladder and stable uterus/adnexa. Adenopathy cannot be excluded. Musculoskeletal structures demonstrate degenerative changes and evidence for prior right femoral fixation. Lung bases demonstrate trace basilar atelectasis. Impression: 1 Free fluid in the upper abdomen extending along the pericolic gutters into the pelvis as described above. Differential diagnosis includes bile leak as well as changes related to postoperative infectious/inflammatory process. There is no evidence for free air. There is no evidence for discrete drainable collection by current noncontrast evaluation. 2. Stable right adrenal mass. Signed by Rodri Hayes MD 06/07/2016 09:48 A
[2016-06-07 10:21] LABS: ALBUMIN 2.5 GM/DL (3.2-5.2); ALBUMIN/GLOBULIN RATIO 0.66 (1.00-1.93); ALKALINE PHOSPHATASE 931 U/L (45-117); ALT/SGPT 32 U/L (12-78); ANION GAP 9 MEQ/L (8-16); AST/SGOT 83 U/L (15-37); BILIRUBIN,DIRECT 1.4 MG/DL (0.0-0.2); BILIRUBIN,TOTAL 1.8 MG/DL (0.2-1.0); BLOOD UREA NITROGEN 8 MG/DL (7-18); CALCIUM LEVEL 8.1 MG/DL (8.5-10.1); CARBON DIOXIDE LEVEL 31 MEQ/L (21-32); CHLORIDE LEVEL 103 MEQ/L (98-107); CREATININE FOR GFR 0.59 MG/DL (0.55-1.02); GLOMERULAR FILTRATION RATE > 60.0 (>51); GLUCOSE, FASTING 88 MG/DL (70-105); POTASSIUM SERUM 3.1 MEQ/L (3.5-5.1); SODIUM LEVEL 143 MEQ/L (136-145); TOTAL PROTEIN 6.3 GM/DL (6.4-8.2)
[2016-06-07] MEDS ORDERED: ONDANSETRON 4 MG ORAL DISINTEGRATING TAB (S0181) As Ordered ONE (12:11)
[2016-06-07] MEDS ORDERED: ACETAMINOPHEN TAB 650MG DOSE (2X325MG) PO PRN (12:30)
[2016-06-07] MEDS ORDERED: MOM 30ML SUSPENSION UDC PO PRN (12:45)
[2016-06-07] MEDS ORDERED: LACTULOSE 20 GM/30 ML SYRUP UD PO PRN (12:45)
[2016-06-07] MEDS ORDERED: CETI10TA PO (13:00)
[2016-06-07] MEDS ORDERED: CLON2TAB PO (13:00)
[2016-06-07] MEDS ORDERED: COLA100C PO (13:00)
--- NOTE | 2016-06-07 13:28 | CR ---
DATE OF CONSULTATION: 06/07/2016 CONSULTATION REPORT FOR: Emergency room physician. REASON FOR CONSULTATION: Regarding abdominal pain. HISTORY OF PRESENT ILLNESS: Ms. Herrera is a 55-year-old female patient of Dr. Perkins. She was recently admitted for presumed acute cholecystitis, from 05/14/2016 through 05/24/2016. She underwent laparoscopic cholecystectomy on 05/15/2016, which from the pathology shows mild acute and moderate chronic cholecystitis and cholelithiasis, from the operative note was uneventful. Of note even postoperatively, she continued to have abdominal pain. This was worked up, which included a hepatobiliary iminodiacetic acid (HIDA) scan that did not show any leakage but is significant for most likely cholestasis given the history of her C1 esterase deficiency, likewise chronic hepatitis C and hepatitis B infection. She seemed to be getting better. She signed out against medical advice on 05/24/2016. She has not seen Dr. Perkins since going home. Since going home, the patient reports progressive increasing pain, though she points to her lower abdomen is where she hurts. She does have chronic abdominal pain, right around the area where she points to. She reports not being able to eat, being nauseated all the time, and also being constipated. She is only able to pass a small amount of stool each time that she goes. She denies any fevers or chills with this. She presented back to the emergency room and I was asked to see the patient to verify whether she needs to be surgically admitted. PAST MEDICAL AND SURGICAL HISTORY: Includes: 1. Hereditary angioedema. 2. History of left breast cancer status post mastectomy and chemotherapy. 3. Chronic hepatitis C. 4. Hepatitis B. 5. Hypertension. 6. Chronic neuropathy. 7. Osteoporosis. 8. Kyphosis. 9. Degenerative disc disease. 10. Chronic pain. PAST SURGICAL HISTORY: Includes: 1. A tracheostomy. 2. Placement of [id number]. 3. Right hip surgery. 4. Tubal ligation. 5. Open appendectomy. 6. Laparoscopic cholecystectomy. ALLERGIES: Noted. She is allergic to MORPHINE, TORADOL, CODEINE, PREGABALIN, ASPIRIN, among others. FAMILY HISTORY: Noncontributory. HOME MEDICATIONS: Reviewed. Pertinent of this, she is on chronic narcotics that include: - oxycodone 30 mg by mouth every six hours as needed - oxycodone 40 mg tablet twice a day that is long-acting She is also on MiraLax daily as-needed, C1 esterase inhibitor, Berinert, that she reports previously that she uses with abdominal pain which helps her. REVIEW OF SYSTEMS: Aside from those mentioned above in the history of present illness (HPI), no other changes. PHYSICAL EXAMINATION: She was examined in the emergency room. She is laying in bed, appears mildly anxious. She was crying. She points to her lower abdomen and periumbilical area where it hurts the most. She does not seem to be in any acute distress. She appears mildly uncomfortable. Tracheostomy in place and this is chronic. She has a Passy-Ángela valve, unable to phonate well. She does not seem to be in any respiratory distress. Lungs sounds are clear to auscultation bilaterally. No wheezing appreciated. Heart rate and rhythm are regular with no murmurs. Abdomen is mildly obese, moderately rounded, soft, mildly distended. She has some tenderness to palpation over the periumbilical area, epigastric area and left lower quadrant area. Minimally tender over the right upper quadrant area. No rebound. Mild guarding. Extremities have no edema noted. LABORATORY DATA: White cell count is 5.1, hemoglobin is 8.4, hematocrit is 26.3 , and plate count is 211. Chemistry: Sodium is 143, potassium 4.1, chloride is 103, CO2 is 35, BUN of 16, creatinine 0.7. LFTs show a total bilirubin of 1.8, direct fraction of 1.4, AST is 83, alkaline phosphatase is 931, albumin is 2.5, lipase is 169. Of note except for the alkaline phosphatase, all the LFTs are improving from the last laboratories done during her past admission. IMAGING STUDIES: CT scan of the abdomen and pelvis which was noncontrast was done and shows free fluid in the upper abdomen extending along the pericolic gutters into the pelvis. No discrete fluid collection. The differential diagnosis is bile leak versus postoperative changes. Of note she had a HIDA scan done postoperatively on 05/19/2016 showing no evidence for bile leakage but for delayed appearance of contrast consistent with most likely cholestasis. This goes well with her hyperbilirubinemia. IMPRESSION: Chronic abdominal pain, acutely worsened. The main issue that I am addressing is whether this is related to her previous surgery. She points to the area of the periumbilical area and left lower quadrant, likewise epigastric which are her usual areas of pain. I am doubting whether this is from her gallbladder surgery. She does have a little residual fluid collection over the right gutter and this can be better addressed with a repeat hepatobiliary iminodiacetic acid (HIDA) scan, though a negative HIDA scan early on was already done and her liver function tests (LFTs) are improving. I think this should be done but probably will be negative. I think the increase in the LFTs is most likely secondary to cholestasis. I will leave it to the medical doctors to address her pain. She may need to be seen by the pain specialists. I will let Dr. Perkins know that she is admitted and he can follow her up during her admission. As for as surgical evaluation or intervention needed, aside from the HIDA scan which should be scheduled during the weekday, after making sure this is not a leakage from her cholecystectomy, no other surgical evaluation is probably needed. ERICK
[2016-06-07 13:40] VITALS: BP 128/71
[2016-06-07] MEDS: HYDROmorphone HCL 1 MG/ML SYRINGE (J1170) IV PRN ×4 (13:55→23:35)
[2016-06-07] MEDS: NS 1,000 ML IV SCH ×2 (13:56→22:22)
[2016-06-07 14:00] VITALS: BP 131/69
[2016-06-07] MEDS ORDERED: traMADol 50 MG TAB PO ONE (14:30)
[2016-06-07] MEDS ORDERED: AZELASTINE 137MCG NASAL SPY 30 ML (ASTELIN) PRN (14:30)
[2016-06-07] MEDS ORDERED: TRIAMCINOLONE ACET 0.1% CREAM 15 GM TOP PRN (14:30)
[2016-06-07] MEDS ORDERED: MAGNESIUM CITRATE 300 ML BTL PO PRN (14:30)
[2016-06-07] MEDS ORDERED: PENCICLOVIR 1% CREAM 5GM TOP PRN (14:30)
[2016-06-07] MEDS: FERROUS SULFATE 325MG TAB PO SCH (15:17)
[2016-06-07] MEDS: POTASSIUM CHLORIDE 10 MEQ SR TABLET PO SCH ×2 (15:17→20:16)
[2016-06-07] MEDS: CETIRIZINE (ZyrTEC) 10 MG TAB PO SCH (15:17)
[2016-06-07] MEDS: CALCIUM CARBONATE 500 MG CHEW U/D PO SCH ×2 (15:18→20:16)
[2016-06-07] MEDS: amLODIPine 10 MG TAB PO SCH (15:18)
[2016-06-07] MEDS: DULoxetine 30 MG CAP (CYMBALTA) PO SCH (15:18)
[2016-06-07] MEDS: ATENOLOL 50 MG TAB PO SCH ×2 (15:19→20:18)
[2016-06-07] MEDS: MAGNESIUM OXIDE 400 MG TAB (MAG-OX) PO SCH (15:19)
[2016-06-07] MEDS: MECLIZINE 25 MG TABLET PO SCH ×2 (15:19→20:16)
[2016-06-07] MEDS: clonazePAM 1 MG TAB PO SCH ×2 (15:19→20:16)
[2016-06-07] MEDS: PANTOPRAZOLE 20 MG TAB PO SCH (17:02)
[2016-06-07] MEDS: MIRALAX *UNIT DOSE* 17GM PACKET PO SCH (20:16)
[2016-06-07] MEDS: PRAMIPEXOLE 0.25 MG TAB PO SCH (20:16)
[2016-06-07] MEDS: SENOKOT S TAB PO SCH (20:16)
[2016-06-07] MEDS: traMADol 50 MG TAB PO SCH (20:17)
[2016-06-07 22:00] VITALS: BP 107/61
[2016-06-07] MEDS: HEPARIN SOD (PORCINE) 5000 UNITS/ML VIAL SC SCH (22:22)
--- NOTE | 2016-06-07 23:01 | HPE ---
DATE OF ADMISSION: 06/07/2016 INPATIENT HOSPITALIST ATTENDING: Dr. Ilia Steward CHIEF COMPLAINT: Abdominal pain. HISTORY OF PRESENT ILLNESS: 55-year-old female with history of C1 esterase deficiency, hereditary angioedema with chronic tracheostomy on as needed Berinert, followed by hair stylist, Dr. Roca with recent history of laparoscopic cholecystectomy by Dr. Jake Perkins in April 2016 secondary to cholelithiasis, hypertension, hepatitis B, hepatitis C, history of left breast cancer, status post modified radical mastectomy and chemotherapy, degenerative disc disease, neuropathy, hypertension, osteoporosis, kyphosis, [id number], right hip surgery, tubal ligation, mastectomy, who presents to the emergency room via ambulance with a two-week history of increasing bilateral lower abdominal pain, which has worsened since. The patient describes the pain as being persistent, achy, constant in nature, on and off, initially in the epigastric region and then radiates down to bilateral lower quadrants, sharp at times despite giving herself Berinert, a total of six courses over the past two weeks. She has had no relief. Due to severe pain and nausea, the patient has had decrease in appetite with no documented weight loss. She has had decreased oral fluid intake, increased generalized weakness and decreased ambulation, persistent constipation. She had a formed stool yesterday, small in amount. She denies any fever or chills. She has had a cough since last spring, which has been persistent and treated with nebulizer treatments once or twice a day. She otherwise denies any diarrhea. Denies any rhinorrhea, sore throat, nasal congestion. No chest pain, pressure or tightness, palpitations, lightheadedness , near syncopal episode. Denies any history of depression. Chronic history of hepatitis B and C, hypertension. Denies any headaches or changes in vision. In the emergency room, vital signs were stable. White count was normal. She was found to be anemic with hemoglobin of 8.5. Bilirubin slightly elevated at 1.8. Lipase was normal. CT of the abdomen and pelvis showed free fluid in the upper abdomen, along the pericolic gutter into the pelvis. Differential includes bile leak, as well as postoperative changes. No evidence of any free air. No discernible drainable collection. Stable right adrenal mass. General surgeon visitor information assistant, Dr. Michael, has evaluated her and recommended a HIDA scan in the morning to by followed by Dr. Perkins, as well as a chronic pain consultation. Currently, the patient is obtaining some relief with intravenous Dilaudid as needed for severe pain. Despite taking her daily dose of OxyContin 40 mg every 12 hours and oxycodone 15 mg every four hours as needed, the patient has had no significant improvement and presented for evaluation of intractable abdominal pain. PAST MEDICAL HISTORY: 1. C1 esterase deficiency. 2. Hereditary angioedema. 3. Degenerative disc disease. 4. Hypertension. 5. Hepatitis B and C. 6. Chronic pain. 7. History of left breast cancer, status post modified radical mastectomy and chemotherapy. 8. Hypertension. 9. Neuropathy. 10. Osteoporosis. 11. Kyphosis. PAST SURGICAL HISTORY: 1. Tracheostomy. 2. [id number]. 3. Right hip surgery. 4. Cholecystectomy. 5. Tubal ligation. 6. Appendectomy. SOCIAL HISTORY: Denies alcohol or tobacco use. Lives at home by herself. Has a chronic trach. ALLERGIES: ASPIRIN, GABAPENTIN, CODEINE, KETOROLAC, MORPHINE, ONDANSETRON, PENICILLIN, PENTAZOCINE, PREGABALIN, PROCHLORPERAZINE. FAMILY HISTORY: Noncontributory. REVIEW OF SYSTEMS: As per history of present illness. 12-point system otherwise negative. PHYSICAL EXAMINATION: 158/81 blood pressure, pulse 81 sinus rhythm, respiratory rate 18, temperature 99.8, 98% on room air, 65.77 kg, 5 feet 0 inches tall. GENERAL: She is awake, alert, oriented times three. Appears older than her stated age. Dried mucous membranes. Pupils are round and reactive to light and accommodation. Extraocular muscles are intact. Anicteric. Normal sclerae. No overt jaundice. Speaks in full sentences. No use of respiratory accessory muscles. No jugular venous distention (JVD), thyromegaly, cervical lymphadenopathy. She has a tracheostomy. Speaks in full sentences. LUNGS: Clear to auscultation. No wheezing, rales or rhonchi. HEART: S1, S2. Sinus rhythm. No murmurs, rubs or gallops. ABDOMEN: Soft, slightly tender in bilateral lower quadrants. No rebound or guarding. Positive bowel sounds. Soft and doughy. EXTREMITIES: Trace lower extremity edema. LABORATORY DATA: White count 4.0, hemoglobin 8.5, hematocrit 26, platelet count 191. Previous hemoglobin and hematocrit 9.7 and 28.8 in April 2016. Sodium 143, potassium 3.1, chloride 103, bicarbonate 31, BUN 8, creatinine 0.59, glucose 88, calcium 8.1, total bilirubin 1.8, direct bilirubin 1.4, AST 83, ALT 32, alkaline phosphatase 931. Total protein 6.3, albumin 2.5, lipase 169. ASSESSMENT AND PLAN: This is a 55-year-old female with a history of C1 esterase deficiency, hereditary angioedema, trach, degenerative disc disease, hypertension, hepatitis B and C, chronic pain, left breast cancer, status post modified radical mastectomy, chemotherapy, degenerative disc disease, hypertension, neuropathy, osteoporosis, kyphosis, recently admitted in April 2016 for cholelithiasis and status post cholecystectomy, on chronic as needed Berinert infusion, followed by hair stylist Dr. Roca, presents to the emergency room with complaints of increasing abdominal pain in the lower quadrants, as well as decreased appetite for the past two weeks. The patient will be admitted as an inpatient for two midnights and assigned to Dr. Ilia Steward of the hospitalist service at 10:00 p.m. on 06/07/2016. He will assume care of this patient at 7:00 a.m. on 06/08/2016. The patient will also be assigned to Dr. Dena Huerta, [facility] hospitalist, for any emergent issues overnight. CURRENT ISSUES: 1. Abdominal pain. The patient will be admitted to the medical/surgical floor. She will be placed on breakthrough intravenous Dilaudid. General surgeon, Dr. Michael, has evaluated the patient and determined that she does not have any acute emergent surgical needs. He recommended obtaining a HIDA scan in the morning and obtaining a pain management consultation. Dr. Perkins will follow the patient in the hospital on 06/08/2016. At this time, the patient's abdominal pain differential diagnosis includes bile leak. Therefore, we will obtain a HIDA scan in the morning. Nothing by mouth after midnight. Continue with intravenous fluid hydration for now. If she tolerates oral intake, we will continue this until midnight. Differential also includes acute exacerbation of hereditary angioedema with C1 esterase deficiency. The patient however has undergone six courses of Berinert infusion at home with no significant relief. She admits that this pain is unlike her pain from exacerbations in the past. Another differential would be chronic constipation. Despite bowel regimen at home, the patient has had no significant bowel movements. Therefore, we will place on MiraLAX, Senokot and continue on as needed milk of magnesia and Lactulose. Encourage ambulation despite significant pain and weakness. 2. Anemia. No acute indication for red blood cell transfusion at this time. We will repeat complete blood count (CBC) in the morning. Check hemoccult stool and iron studies. If the patient has repeat hemoglobin less than 8, the patient will be transfused red blood cells and evaluation will be done with possible endoscopy if persistent anemia. 3. Hereditary angioedema with C1 esterase deficiency. As needed Berinert. Outpatient followup with Dr. Roca. The patient denies symptoms of exacerbation, states that this pain is different from the chronic exacerbation pain that she has. She has used six courses of Berinert with no significant improvement. 4. History of chronic hepatitis B and C. Outpatient followup with infectious disease specialist. 5. Hypertension, uncontrolled secondary to severe pain. She may be continued on her home dose of Norvasc, atenolol with holding parameters for a systolic pressure less than 120. 6. Low potassium. Supplement potassium. 7. Abnormal liver function tests, prior history of cholecystectomy. Obtain a HIDA scan in the morning. Repeat comprehensive panel in the morning. Full supportive care. 8. Protein calorie malnutrition. Albumin level is 2.5. Nutrition consult if persistent. 9. Right adrenal mass, chronic. Outpatient followup. 10. Chronic pain. Involve pain management in the morning. 11. Depression. Continue on outpatient psychiatric medications with Cymbalta. 12. Restless leg syndrome. Continue Primaplex. 13. History of reflux. Continue on Prilosec. 14. Deep vein thrombosis (DVT) prophylaxis. Heparin subcutaneous. The patient will be assigned to Dr. Ilia Steward at 10:00 p.m. on 06/07/2016. He will assume care of this patient at 7:00 a.m. on 06/08/2016. Her case will be signed out to the night hospitalist, Dr. Dena Huerta, at 7:00 p.m. this evening for any emergent acute issues. ERICK
[2016-06-08] MEDS: HYDROmorphone HCL 1 MG/ML SYRINGE (J1170) IV PRN ×6 (03:51→23:47)
[2016-06-08] MEDS: HEPARIN SOD (PORCINE) 5000 UNITS/ML VIAL SC SCH ×3 (05:04→21:48)
[2016-06-08 06:00] VITALS: BP 119/65
[2016-06-08 06:19] LABS: BASO % 0.7 % (0.0-1.0); EOS # 0.1 K/mm3 (0.0-0.50); EOS % 3.4 % (0.0-3.0); LARGE UNSTAINED CELL # 0.1 K/mm3 (0.0-0.4); LARGE UNSTAINED CELL % 2.5 % (0.0-4.0); LYMPH # 1.3 K/mm3 (1.5-4.5); LYMPH % 45.5 % (24.0-44.0); MEAN CORPUSCULAR HEMOGLOBIN 28.7 pg (27.0-33.0); MEAN CORPUSCULAR HGB CONC 32.4 g/dl (32.0-36.5); MEAN CORPUSCULAR VOLUME 88.6 fl (80.0-96.0); MONO # 0.1 K/mm3 (0.0-0.8); MONO % 3.7 % (0.0-5.0); NEUTROPHILS # 1.3 K/mm3 (1.8-7.7); NEUTROPHILS % 44.2 % (36.0-66.0); PLATELET COUNT, AUTOMATED 168 k/mm3 (150-450); RED CELL DISTRIBUTION WIDTH 14.3 % (11.5-14.5); WHITE BLOOD COUNT 2.9 K/mm3 (4.0-10.0)
[2016-06-08 07:01] LABS: ALBUMIN 2.2 GM/DL (3.2-5.2); ALBUMIN/GLOBULIN RATIO 0.63 (1.00-1.93); ALKALINE PHOSPHATASE 770 U/L (45-117); ALT/SGPT 26 U/L (12-78); ANION GAP 8 MEQ/L (8-16); AST/SGOT 54 U/L (15-37); BLOOD UREA NITROGEN 11 MG/DL (7-18); CALCIUM LEVEL 7.7 MG/DL (8.5-10.1); CARBON DIOXIDE LEVEL 28 MEQ/L (21-32); CHLORIDE LEVEL 110 MEQ/L (98-107); CREATININE FOR GFR 0.48 MG/DL (0.55-1.02); GLOMERULAR FILTRATION RATE > 60.0 (>51); GLUCOSE, FASTING 77 MG/DL (70-105); POTASSIUM SERUM 3.8 MEQ/L (3.5-5.1); SODIUM LEVEL 146 MEQ/L (136-145); TOTAL PROTEIN 5.7 GM/DL (6.4-8.2)
[2016-06-08] MEDS: ATENOLOL 50 MG TAB PO SCH ×2 (08:56→21:49)
[2016-06-08] MEDS: FERROUS SULFATE 325MG TAB PO SCH (09:00)
[2016-06-08] MEDS ORDERED: oxyCODONE 40 MG CR TAB PO SCH (09:00)
[2016-06-08] MEDS: clonazePAM 1 MG TAB PO SCH ×3 (09:00→21:48)
[2016-06-08] MEDS: MECLIZINE 25 MG TABLET PO SCH ×3 (09:00→21:48)
[2016-06-08] MEDS: DULoxetine 30 MG CAP (CYMBALTA) PO SCH (09:01)
[2016-06-08] MEDS: traMADol 50 MG TAB PO SCH (09:02)
[2016-06-08] MEDS: CETIRIZINE (ZyrTEC) 10 MG TAB PO SCH (09:02)
[2016-06-08] MEDS: CALCIUM CARBONATE 500 MG CHEW U/D PO SCH ×2 (12:45→21:48)
[2016-06-08] MEDS: SENOKOT S TAB PO SCH ×2 (12:45→21:48)
[2016-06-08] MEDS: MIRALAX *UNIT DOSE* 17GM PACKET PO SCH ×2 (12:45→21:49)
[2016-06-08] MEDS: PANTOPRAZOLE 20 MG TAB PO SCH (12:46)
[2016-06-08] MEDS: MAGNESIUM OXIDE 400 MG TAB (MAG-OX) PO SCH (12:46)
[2016-06-08] MEDS: POTASSIUM CHLORIDE 10 MEQ SR TABLET PO SCH ×2 (12:47→21:48)
[2016-06-08] MEDS: amLODIPine 10 MG TAB PO SCH (12:47)
--- NOTE | 2016-06-08 13:07 | REP ---
Hepatobiliary scan: History: Abdominal pain post cholecystectomy. Comparison scintigraphy is from May 19, [address] study is from June 07, 2016. Technique: 6.5 mCi technetium 99m mebrofenin is injected and sequential anterior abdominal images are acquired. Scintigraphic findings: Initial hepatocellular parenchymal uptake phase is homogeneous. There is decreased washout from the liver parenchyma. By the 25-30 image, visualization of dilated intrahepatic biliary radicles is seen. No extrahepatic biliary radicle is seen. Right lateral projection at 60 minutes shows intrahepatic bile duct dilation. No small bowel labeling is seen. Impression: Findings compatible with a high-grade extrahepatic bile duct obstruction, verses cholestasis. No evidence of bile leak. Signed by Adin Owens MD 06/08/2016 01:38 P
--- NOTE | 2016-06-08 13:18 | IPNPDOC ---
Text Note Date of Service The patient was seen on 06/08/16 at 13:06. NOTE Subjective: She states her abdominal pain is mildly improved. She typically has bilateral lower quadrant pain secondary to her hereditary angioedema for which she periodically takes her C1 esterase inhibitor infusion, which typically relieves the pain. She said she took it last on Wednesday and states that the abdominal pain is significantly improved at that time. Her abdominal pain that' s more concerning now is her epigastric and left upper quadrant region pain. She states this pain is sharp in nature and nonradiating. Objective: Vitals: (see below) General: No acute distress, laying comfortably in bed. HEENT: Moist mucous membranes. Neck: No JVD or lymphadenopathy. Chronic trach intact no bleeding. Cardiac: RRR, No murmurs Pulm: Clear to auscultation b/l. No wheezing, rhonchi Abd: Mild TTP in all quadrants, moreso the epigatric/LUQ region. No rebound guarding or rigidity. T/ND + BS Ext: No edema or cyanosis Labs (see below) Images: CT abd/pelvis 06/07/16 Impression: 1 Free fluid in the upper abdomen extending along the pericolic gutters into the pelvis as described above. Differential diagnosis includes bile leak as well as changes related to postoperative infectious/inflammatory process. There is no evidence for free air. There is no evidence for discrete drainable collection by current noncontrast evaluation. 2. Stable right adrenal mass. Assessment/Plan 1. Abdominal pain- multifactorial. Recent cholecystectomy, with free fluid noted in the upper abdomen, although these may represents inflammatory changes from the recent surgery versus a biliary leak. HIDA scan was ordered and pending. Surgery consultation appreciated. We'll resume patient's home medications of oxycodone/OxyContin that was verified by a [facility] after the HIDA scan is complete. 2. Chronic anemia- no acute need for transfusion this time. Follow-up occult stool and iron studies. 3. Hereditary angioedema with C1 esterase deficiency- patient does use Berinert as needed. She states that her typical flares involve the lower quadrants of her abdomen as well as her lips/throat, for which she has a chronic trach. 4. History of hepatitis B and C - will need outpatient ID follow-up 5. Hypertension controlled continue current meds. 6. Abnormal liver function tests- patient's had significantly high alkaline phosphatase. This may be related to her recent cholecystectomy, however given the she does have a history of breast cancer, will order bone scan to rule out metastases to the bone. 7. Chronic stable right adrenal mass follow-up outpatient 8. Chronic pain- resume OxyContin 40 mg every 12 hours, and oxycodone 30 mg every 6 hours as needed, which is the patient's home medications prescribed by her pain management physician. These doses have been verified by [facility] in [facility]. 9. Depression- continue home meds DVT prophy: Heparin subcutaneous VS,Fishbone, I+O VS, Fishbone, I+O Laboratory Tests 06/08/16 05:59 Calcium Level 7.7 L, Aspartate Amino Transf (AST/SGOT) 54 H, Alanine Aminotransferase (ALT/SGPT) 26, Alkaline Phosphatase 770 H, Total Bilirubin 1.0 , Total Protein 5.7 L, Albumin 2.2 L, Red Blood Count 2.69 L, Mean Corpuscular Volume 88.6, Mean Corpuscular Hemoglobin 28.7, Mean Corpuscular Hemoglobin Concent 32.4, Red Cell Distribution Width 14.3, Neutrophils (%) (Auto) 44.2, Lymphocytes (%) (Auto) 45.5 H, Monocytes (%) (Auto) 3.7, Eosinophils (%) (Auto) 3.4 H, Basophils (%) (Auto) 0.7, Neutrophils # (Auto) 1.3 L, Lymphocytes # (Auto ) 1.3 L, Monocytes # (Auto) 0.1, Eosinophils # (Auto) 0.1, Basophils # (Auto) 0.0 Vital Signs Date Time Temp Pulse Resp B/P Pulse Ox O2 Delivery O2 Flow Rate FiO2 06/08/16 12:47 72 118/83 06/08/16 10:18 14 06/08/16 09:00 Room Air 06/08/16 06:00 98.3 93 I&O- Last 24 Hours up to 6 AM 06/08/16 06:00 Intake Total 540 ml Output Total 350 ml Balance 190 ml DENNIS PALAFOX MD Jun 08, 2016 13:18
[2016-06-08 14:00] VITALS: BP 113/65
[2016-06-08] MEDS: oxyCODONE 5MG TAB PO PRN (16:09)
[2016-06-08] MEDS ORDERED: FLEET ENEMA PR ONE (18:00)
[2016-06-08] MEDS: PRAMIPEXOLE 0.25 MG TAB PO SCH (21:48)
[2016-06-08] MEDS: oxyCODONE 40 MG CR TAB PO SCH (21:52)
[2016-06-08 22:00] VITALS: BP 106/64
[2016-06-08] MEDS: SODIUM CHLORIDE 0.9% INJ 10 ML SYR IV PRN (23:47)
[2016-06-09] MEDS: HYDROmorphone HCL 1 MG/ML SYRINGE (J1170) IV PRN ×5 (03:56→19:44)
[2016-06-09] MEDS: HEPARIN SOD (PORCINE) 5000 UNITS/ML VIAL SC SCH ×3 (05:20→21:15)
[2016-06-09] MEDS: SODIUM CHLORIDE 0.9% INJ 10 ML SYR IV PRN (05:21)
[2016-06-09 05:42] LABS: BASO % 0.4 % (0.0-1.0); EOS # 0.1 K/mm3 (0.0-0.50); EOS % 4.9 % (0.0-3.0); LARGE UNSTAINED CELL # 0.1 K/mm3 (0.0-0.4); LARGE UNSTAINED CELL % 1.8 % (0.0-4.0); LYMPH # 1.4 K/mm3 (1.5-4.5); LYMPH % 48.5 % (24.0-44.0); MEAN CORPUSCULAR HEMOGLOBIN 28.9 pg (27.0-33.0); MEAN CORPUSCULAR HGB CONC 32.5 g/dl (32.0-36.5); MEAN CORPUSCULAR VOLUME 88.9 fl (80.0-96.0); MONO # 0.1 K/mm3 (0.0-0.8); MONO % 3.7 % (0.0-5.0); NEUTROPHILS # 1.2 K/mm3 (1.8-7.7); NEUTROPHILS % 40.7 % (36.0-66.0); PLATELET COUNT, AUTOMATED 184 k/mm3 (150-450); RED CELL DISTRIBUTION WIDTH 14.4 % (11.5-14.5); WHITE BLOOD COUNT 2.9 K/mm3 (4.0-10.0)
[2016-06-09 06:00] VITALS: BP 121/69
[2016-06-09 06:41] LABS: ALBUMIN 2.4 GM/DL (3.2-5.2); ALBUMIN/GLOBULIN RATIO 0.62 (1.00-1.93); ALKALINE PHOSPHATASE 669 U/L (45-117); ALT/SGPT 24 U/L (12-78); ANION GAP 6 MEQ/L (8-16); AST/SGOT 41 U/L (15-37); BILIRUBIN,TOTAL 0.8 MG/DL (0.2-1.0); BLOOD UREA NITROGEN 16 MG/DL (7-18); CALCIUM LEVEL 8.1 MG/DL (8.5-10.1); CARBON DIOXIDE LEVEL 30 MEQ/L (21-32); CHLORIDE LEVEL 110 MEQ/L (98-107); CREATININE FOR GFR 0.65 MG/DL (0.55-1.02); GLOMERULAR FILTRATION RATE > 60.0 (>51); GLUCOSE, FASTING 89 MG/DL (70-105); POTASSIUM SERUM 4.3 MEQ/L (3.5-5.1); SODIUM LEVEL 146 MEQ/L (136-145); TOTAL PROTEIN 6.3 GM/DL (6.4-8.2)
[2016-06-09] MEDS: MIRALAX *UNIT DOSE* 17GM PACKET PO SCH ×2 (07:54→20:41)
[2016-06-09] MEDS: DULoxetine 30 MG CAP (CYMBALTA) PO SCH (07:55)
[2016-06-09] MEDS: MECLIZINE 25 MG TABLET PO SCH ×3 (07:55→21:15)
[2016-06-09] MEDS: CALCIUM CARBONATE 500 MG CHEW U/D PO SCH ×2 (07:55→21:17)
[2016-06-09] MEDS: clonazePAM 1 MG TAB PO SCH ×3 (07:55→21:15)
[2016-06-09] MEDS: FERROUS SULFATE 325MG TAB PO SCH (07:55)
[2016-06-09] MEDS: SODIUM CHLORIDE 0.9% INJ 10 ML SYR IV SCH (07:55)
[2016-06-09] MEDS: oxyCODONE 40 MG CR TAB PO SCH ×2 (07:56→21:16)
[2016-06-09] MEDS: SENOKOT S TAB PO SCH ×2 (07:56→20:42)
[2016-06-09] MEDS: CETIRIZINE (ZyrTEC) 10 MG TAB PO SCH (07:56)
[2016-06-09] MEDS: ATENOLOL 50 MG TAB PO SCH ×2 (07:58→21:17)
[2016-06-09] MEDS: POTASSIUM CHLORIDE 10 MEQ SR TABLET PO SCH ×2 (11:25→21:15)
[2016-06-09] MEDS: MAGNESIUM OXIDE 400 MG TAB (MAG-OX) PO SCH (11:25)
[2016-06-09] MEDS: amLODIPine 10 MG TAB PO SCH (11:26)
[2016-06-09] MEDS: PANTOPRAZOLE 20 MG TAB PO SCH (11:26)
--- NOTE | 2016-06-09 11:54 | IPNPDOC ---
Text Note Date of Service The patient was seen on 06/09/16 at 11:41. NOTE Subjective: Patient is a 55 year old female with PMHx of C1 esterase deficiency, hereditary angioedema, degenerative disc disease, HTN, Hep B & C, Hx of Left Breast CA (s/p mastectomy and chemo) who presented to the ER with complaints of bilateral lower abdominal pain for 2 weeks. She recently had a laparoscopic cholecystectomy with Dr. Perkins 04/2016. Patient notes that the pain was different than her general exacerbation of hereditary angioedema. She was admitted for possible bile leak. Patient was seen and examined at the bedside. Currently she notes that she is tolerating the pain, but it has not resolved completely. Objective: Vitals: (See below) General: No acute distress, laying comfortably in bed HEENT: NC, AT CVS: RRR, +S1S2 Lungs: Fair air entry b/l, - w/r/r Abdomen: Soft, ND, Tenderness diffusely, +BSx4 Extremities: No edema, no calf tenderness Assessment and plan: 1. Abdominal pain - possibly 2/2 hepatobiliary etiology, possible exacerbation of angioedema - Physical with diffuse abdominal pain - notes improvement - Elevated alkaline phosphatase - likely 2/2 extrahepatic obstruction, possibly 2/2 bone mets - HIDA with findings consistent with high grade extrahepatic bile duct obstruction - Will go for MRCP today; if positive will go for ERCP with Dr. Parra - Will check GGT, will go for bone scan tomorrow (re: evaluate mets from Breast CA) - will c/w pain control with home medications 2. Normocytic anemia, Chronic - Hg stable - will continue to follow 3. Hereditary angioedema 2/2 C1 esterase deficiency - Advised that she received Berinert 2-3x / week 4. Hx of Hepatitis B adn C - will follow up as an outpatient 5. HTN - BP well controlled - will c/w Amlodipine and Atenolol 6. Right adrenal mass, chronic - outpatient evaluation 7. Chronic pain - c/w home pain regimen 8. Depression and Anxiety - c/w Duloxetine and Clonazepam 9. GI prophylaxis - c/w protonix 10. DVT prophylaxis - c/w heparin VS,Fishbone, I+O VS, Fishbone, I+O Laboratory Tests 06/09/16 05:26 Calcium Level 8.1 L, Aspartate Amino Transf (AST/SGOT) 41 H, Alanine Aminotransferase (ALT/SGPT) 24, Alkaline Phosphatase 669 H, Total Bilirubin 0.8 , Total Protein 6.3 L, Albumin 2.4 L, Red Blood Count 2.71 L, Mean Corpuscular Volume 88.9, Mean Corpuscular Hemoglobin 28.9, Mean Corpuscular Hemoglobin Concent 32.5, Red Cell Distribution Width 14.4, Neutrophils (%) (Auto) 40.7, Lymphocytes (%) (Auto) 48.5 H, Monocytes (%) (Auto) 3.7, Eosinophils (%) (Auto) 4.9 H, Basophils (%) (Auto) 0.4, Neutrophils # (Auto) 1.2 L, Lymphocytes # (Auto ) 1.4 L, Monocytes # (Auto) 0.1, Eosinophils # (Auto) 0.1, Basophils # (Auto) 0.0 Vital Signs Date Time Temp Pulse Resp B/P Pulse Ox O2 Delivery O2 Flow Rate FiO2 06/09/16 11:37 16 06/09/16 11:26 71 135/76 06/09/16 09:00 Room Air 06/09/16 06:00 98.2 91 I&O- Last 24 Hours up to 6 AM 06/09/16 06:00 Intake Total 1560 ml Output Total 250 ml Balance 1310 ml LUCIA NUNEZ MD Jun 09, 2016 11:54
[2016-06-09 14:00] VITALS: BP 108/64
--- NOTE | 2016-06-09 14:25 | EDDOCDS ---
Nurse's Notes [facility] Name: Maribell Herrera Age: 55 yrs Sex: Female : 1960 Arrival Date: 06/07/2016 Time: 08:08 Bed 17 Private MD: Diagnosis: Generalized abdominal pain;Chronic pain syndrome Presentation: 06/07 08:11 Presenting complaint: EMS states: Lower abdominal pain and nausea began two weeks ago mlb1 worsening since. Adult Sepsis Screenin:11 Acuity: ADIS Level 3 mlb1 08:30 Adult Sepsis Screening: Patient's respiratory rate is less than 22. Systolic blood mlb1 pressure is greater than 100. Patient has a qSOFA score of 0- Negative Sepsis Screen. Suicide/Homicide risk assessment- the patient denies having any suicidal and/or homicidal ideations and does not present with any other emotional, behavioral or mental health complaints. 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 Transition of care: patient was not received from another setting of care. 08:30 Method Of Arrival: Ambulance mlb1 Triage Assessment: 08:28 General: Appears unkempt, Behavior is cooperative. Pain: Location: right lower quadrant mlb1 and left lower quadrant Pain currently is 8 out of 10 on a pain scale. HIV screening NA for this visit Offered previously. The patient is triaged at the bedside. See Assessment in Nurses Notes section of ED record. Neurological: No deficits noted. GI: Abdomen is non- distended Bowel sounds present X 4 quads. Abd is soft X 4 quads Abd is tender to palpation in right upper quadrant, left upper quadrant, right lower quadrant and left lower quadrant. Derm: No deficits noted. Historical: - Allergies: Aspirin; Codeine Sulfate; GABAPENTIN; Morphine; PENICILLINS; PENTAZOCINE; pregabalin; Prochlorperazine Maleate; Toradol; - Home Meds: 1. amlodipine 10 mg Oral tab 1 tab once daily 2. atenolol 50 mg Oral tab 1 tab once daily 3. Belsomra 20 mg oral tab 1 tab nightly 4. Berinert 500 unit (10 mL) intravenous kit 2000 units as needed 5. calcium carbonate 500 mg calcium (1,250 mg) oral chew daily 6. cetirizine 10 mg oral tab 1 tab once daily 7. Colace 100 mg oral cap 1 cap three times a day 8. clonazepam 2 mg Oral tab 1 tab 3 times per day 9. Cymbalta 30 mg Oral cpDR 1 cap 2 times per day 10. ferrous sulfate 325 mg (65 mg iron) Oral tab as needed 11. hydrochlorothiazide 50 mg Oral tab 1 tab once daily 12. Klor-Con 10 10 mEq Oral TbER 1 tab 2 times per day 13. magnesium oxide 400 mg Oral tab daily 14. Miralax 17 gram Oral pwpk 1 packet as needed 15. Mirapex 0.25 mg Oral tab 1 tab daily 16. oxycodone 15 mg oral Tb12 1 tab every 4 hours as needed 17. pramipexole 0.125 mg oral tab nightly 18. promethazine 25 mg Oral tab 1 tab twice daily as needed as needed 19. Prilosec 40 mg Oral cpDR 1 cap once daily 20. OxyContin 40 mg Oral TR12 1 tab every 12 hours - PMHx: angioedema; Cancer, Breast - Left; Degenerative disc disease; Hepatitis B; Hepatitis C; Hypertension; neuropathy; Osteoporosis; - PSHx: Tracheostomy; Cholecystectomy; Mastectomy- Left; Appendectomy; Orthopedic Surgery; Infusa port insertion; - The history from nurses notes was reviewed: and I agree with what is documented. - Social history: Smoking status: No barriers to communication noted, The patient speaks fluent Argentine, Speaks appropriately for age. - : The pt / caregiver states he / she is not on anticoagulants. Home medication list is obtained from the patient. - Exposure Risk Screening:: None identified. - Immunization history:: All immunizations up-to-date. - Family history: Not pertinent. - Social history:: the patient is a non-smoker, the patient does not drink alcohol. Screenin:15 Screening information is obtained from the patient. Fall risk: No risks identified. mlb1 Assistance ADL's: requires no assistance with activities of daily living. Abuse/DV Screen: The patient / caregiver reports he/she is: not in a situation that causes fear, pain or injury. Nutritional screening: No deficits noted. Advance Directives: Currently, there is no health care proxy. home support is adequate. Assessment: 08:29 General: Appears in no apparent distress, unkempt, Behavior is appropriate for age, mlb1 cooperative. Pain: Location: left lower quadrant and right lower quadrant Pain currently is 8 out of 10 on a pain scale. GI: Abdomen is non- distended Bowel sounds present X 4 quads. Abd is soft X 4 quads Abd is tender to palpation in right lower quadrant and left lower quadrant. 09:30 General: Appears in no apparent distress, Behavior is appropriate for age, cooperative. mlb1 Pain: Location: left lower quadrant and right lower quadrant Pain currently is 8 out of 10 on a pain scale. Neurological: No deficits noted. 10:30 General: Appears in no apparent distress, Behavior is appropriate for age, cooperative. mlb1 Pain: Location: left lower quadrant and right lower quadrant Pain currently is 8 out of 10 on a pain scale. GI: Reports nausea. 11:28 General: Appears in no apparent distress, Behavior is appropriate for age, cooperative. mlb1 Pain: Location: left lower quadrant and right lower quadrant Pain currently is 8 out of 10 on a pain scale. Neurological: No deficits noted. GI: Reports nausea. Derm: No deficits noted. 12:30 General: Appears in no apparent distress, Behavior is appropriate for age, cooperative. mlb1 Pain: Location: left lower quadrant and right lower quadrant Pain currently is 8 out of 10 on a pain scale. Neurological: No deficits noted. 13:14 General: Appears in no apparent distress, Behavior is appropriate for age, cooperative. mlb1 Pain: Location: left lower quadrant and right lower quadrant Pain currently is 8 out of 10 on a pain scale. Neurological: No deficits noted. Respiratory: Airway is patent Respiratory effort is even, unlabored, Derm: No deficits noted. Vital Signs: 08:17 BP 158 / 81 RA Supine (auto/reg); Pulse 82 LA; Resp 18; Temp 99.8(O); Pulse Ox 98% on tk R/A; Weight 65.77 kg; Height 5 ft. 0 in. (152.40 cm); Pain 8/10; 10:29 BP 142 / 68; Pulse 74; Resp 16; Pulse Ox 99% on R/A; Pain 8/10; mlb1 13:21 BP 139 / 71; Pulse 76; Resp 16; Temp 99.5(O); Pulse Ox 97% on R/A; Pain 7/10; mlb1 08:17 Body Mass Index 28.32 (65.77 kg, 152.40 cm) tk Vitals: 08:35 Log In Time N/A - ambulance arrival. mlb1 ED Course: 08:09 Patient visited by Radha Roca, Cylinder Filler. deg 08:09 Patient moved to Waiting deg 08:09 Patient moved to 17 deg 08:11 Patient visited by Carlos Pino, CORKY. mlb1 08:15 Triage Initiated mlb1 08:18 Patient visited by Chance Baez. tk 08:19 Patient visited by Carlos Pino, RN. mlb1 08:22 Jeromy Townsend MD is Attending Physician. pc 08:36 Patient visited by Jeromy Townsend MD. pc 09:10 Lipase Sent. mlb1 09:10 Liver Profile Sent. mlb1 09:10 MED Profile Sent. mlb1 09:10 CBC with Diff Sent. mlb1 09:15 Accessed using accessed w/ # 20 Lala needle, sterile technique, per hospital protocol. mlb1 InfusaPort in patient's anterior aspect of right upper chest. Clean & dry. Good blood return. Flushes easily. 09:20 The patient / caregiver is instructed regarding the plan of care and ED course. mlb1 09:31 Patient visited by Carlos Pino, CORKY. mlb1 10:14 CT ABD & PELVIS: No Contrast Returned. EDMS 10:31 Patient visited by Carlos Pino, CORYK. mlb1 10:46 [facility] [place] [place] Payment Agreement was scanned into [employer] and attached to record. jp5 11:26 Patient visited by Idalia Hernandez RN. ms18 11:28 No procedures done that require assistance. mlb1 11:29 Patient visited by Carlos Pino, CORKY. mlb1 12:21 Selina Tran is Hospitalizing Provider. pc 13:15 Patient visited by Carlos Pino, CORKY. mlb1 13:22 Patient visited by Carlos Pino, CORKY. mlb1 Administered Medications: 09:15 Drug: NS 0.9% 500 ml [sodium chloride 0.9 % injection solution] Route: IV; Rate: bolus; mlb1 Site: Implantable Access Device; 09:25 Drug: oxyCODONE 15 mg [oxycodone 5 mg tablet (3 tabs)] Route: PO; mlb1 10:29 Follow up: BP 142 / 68; Pulse 74 bpm; Resp 16 bpm; Pulse Ox 99% RA; Pain 8/10 Adult; mlb1 Response: No significant change. 10:40 Drug: heparin 100units/mL flush (infusaport) 5 ml Route: IVP; Site: Implantable Access mlb1 Device; 12:12 Drug: Ondansetron ODT 4 mg [ondansetron 4 mg disintegrating tablet (1 tabs)] Route: PO; mlb1 Order Results: Lab Order: CBC with Diff; SPEC'M 06/07/16 09:10 Test: WHITE BLOOD COUNT; Value: 4.0; Range: 4.0-10.0; Units: K/mm3; Status: F Test: RED BLOOD COUNT; Value: 2.97; Range: 4.00-5.40; Abnormal: Below low normal; Units: M/mm3; Status: F Test: HEMOGLOBIN; Value: 8.5; Range: 12.0-16.0; Abnormal: Below low normal; Units: g/dl; Status: F Test: HEMATOCRIT; Value: 26.1; Range: 36.0-47.0; Abnormal: Below low normal; Units: %; Status: F Test: MEAN CORPUSCULAR VOLUME; Value: 88.0; Range: 80.0-96.0; Units: fl; Status: F Test: MEAN CORPUSCULAR HEMOGLOBIN; Value: 28.5; Range: 27.0-33.0; Units: pg; Status: F Test: MEAN CORPUSCULAR HGB CONC; Value: 32.4; Range: 32.0-36.5; Units: g/dl; Status: F Test: RED CELL DISTRIBUTION WIDTH; Value: 14.2; Range: 11.5-14.5; Units: %; Status: F Test: PLATELET COUNT, AUTOMATED; Value: 191; Range: 150-450; Units: k/mm3; Status: F Test: NEUTROPHILS %; Value: 55.2; Range: 36.0-66.0; Units: %; Status: F Test: LYMPH %; Value: 33.9; Range: 24.0-44.0; Units: %; Status: F Test: MONO %; Value: 6.2; Range: 0.0-5.0; Abnormal: Above high normal; Units: %; Status: F Test: EOS %; Value: 1.5; Range: 0.0-3.0; Units: %; Status: F Test: BASO %; Value: 0.4; Range: 0.0-1.0; Units: %; Status: F Test: LARGE UNSTAINED CELL %; Value: 2.9; Range: 0.0-4.0; Units: %; Status: F Test: NEUTROPHILS #; Value: 2.2; Range: 1.8-7.7; Units: K/mm3; Status: F Test: LYMPH #; Value: 1.4; Range: 1.5-4.5; Abnormal: Below low normal; Units: K/mm3; Status: F Test: MONO #; Value: 0.3; Range: 0.0-0.8; Units: K/mm3; Status: F Test: EOS #; Value: 0.1; Range: 0.0-0.50; Units: K/mm3; Status: F Test: BASO #; Value: 0.0; Range: 0.0-0.2; Units: K/mm3; Status: F Test: LARGE UNSTAINED CELL #; Value: 0.1; Range: 0.0-0.4; Units: K/mm3; Status: F Lab Order: MED Profile; SPEC'M 06/07/16 09:10 Test: GLUCOSE, FASTING; Value: 88; Range: 70-105; Units: MG/DL; Status: F Test: BLOOD UREA NITROGEN; Value: 8; Range: 7-18; Units: MG/DL; Status: F Test: CREATININE FOR GFR; Value: 0.59; Range: 0.55-1.02; Units: MG/DL; Status: F Test: GLOMERULAR FILTRATION RATE; Value: > 60.0; Range: >51; Status: F Test: SODIUM LEVEL; Value: 143; Range: 136-145; Units: MEQ/L; Status: F Test: POTASSIUM SERUM; Value: 3.1; Range: 3.5-5.1; Abnormal: Below low normal; Units: MEQ/L; Status: F Test: CHLORIDE LEVEL; Value: 103; Range: 98-107; Units: MEQ/L; Status: F Test: CARBON DIOXIDE LEVEL; Value: 31; Range: 21-32; Units: MEQ/L; Status: F Test: ANION GAP; Value: 9; Range: 8-16; Units: MEQ/L; Status: F Test: CALCIUM LEVEL; Value: 8.1; Range: 8.5-10.1; Abnormal: Below low normal; Units: MG/DL; Status: F Test Note: ; Units are mL/min/1.73 m2 Chronic Kidney Disease Staging per NKF: Stage I & II GFR >=60 Normal to Mildly Decreased Stage III GFR 30-59 Moderately Decreased Stage IV GFR 15-29 Severely Decreased Stage V GFR <15 Very Little GFR Left ESRD GFR <15 on [employer] Lab Order: Liver Profile; SPEC'M 06/07/16 09:10 Test: AST/SGOT; Value: 83; Range: 15-37; Abnormal: Above high normal; Units: U/L; Status: F Test: ALT/SGPT; Value: 32; Range: 12-78; Units: U/L; Status: F Test: ALKALINE PHOSPHATASE; Value: 931; Range: 45-117; Abnormal: Above high normal; Units: U/L; Status: F Test: BILIRUBIN,TOTAL; Value: 1.8; Range: 0.2-1.0; Abnormal: Above high normal; Units: MG/DL; Status: F Test: BILIRUBIN,DIRECT; Value: 1.4; Range: 0.0-0.2; Abnormal: Above high normal; Units: MG/DL; Status: F Test: TOTAL PROTEIN; Value: 6.3; Range: 6.4-8.2; Abnormal: Below low normal; Units: GM/DL; Status: F Test: ALBUMIN; Value: 2.5; Range: 3.2-5.2; Abnormal: Below low normal; Units: GM/DL; Status: F Test: ALBUMIN/GLOBULIN RATIO; Value: 0.66; Range: 1.00-1.93; Abnormal: Below low normal; Status: F Lab Order: Lipase; SPEC'M 06/07/16 09:10 Test: LIPASE; Value: 169; Range: 73-393; Units: U/L; Status: F Radiology Order: CT ABD & PELVIS: No Contrast Test: CT ABD & PELVIS: No Contrast REASON FOR EXAMINATION: r/o post op julieta abscess; Clinical: Status post cholecystectomy with continued abdominal pain.; ; Comparison: 05/14/2016.; ; Findings:; The patient is status post cholecystectomy with clips in the gallbladder fossa.; There is a small to moderate amount of free fluid noted predominantly centered in; the region of the gallbladder fossa and upper abdomen extending along the; pericolic gutters into the pelvis. No discrete loculated or drainable collection; is appreciated. However evaluation is significantly limited by the lack of both; oral and intravenous contrast material. No free air is identified.; ; Liver again demonstrates apparent intrahepatic biliary ductal dilatation along; with findings to suggest stable hepatosplenomegaly. 2.8 cm right adrenal mass; unchanged. Kidneys without evidence for hydronephrosis. There is no evidence; for bowel obstruction. Pelvis demonstrates normal bladder and stable; uterus/adnexa. Adenopathy cannot be excluded. Musculoskeletal structures; demonstrate degenerative changes and evidence for prior right femoral fixation.; Lung bases demonstrate trace basilar atelectasis.; ; Impression:; 1 Free fluid in the upper abdomen extending along the pericolic gutters into the; pelvis as described above. Differential diagnosis includes bile leak as well as; changes related to postoperative infectious/inflammatory process. There is no; evidence for free air. There is no evidence for discrete drainable collection by; current noncontrast evaluation.; 2. Stable right adrenal mass.; ; ; Signed by; Rodri Hayes MD 06/07/2016 09:48 A; Outcome: 11:28 CT Study completed. mlb1 12:21 Decision to Hospitalize by Provider. pc 13:18 Discharge Assessment: Patient awake, alert and oriented x 3. No cognitive and/or mlb1 functional deficits noted. Patient verbalized understanding of disposition instructions. patient administered narcotics - no. The following High Risk Discharge criteria are identified: None. Admitted to Med/Surg accompanied by tech, with chart. Condition: good. Property :Personal belongings accompany Pt. 13:24 Patient left the ED. mlb1 Signatures: Dispatcher [employer] EDMS Jeromy Townsend MD MD pc Radha Roca, Cylinder Filler Unit deg Carlos Pino RN RN mlb1 Idalia Hernandez,CORKY RN ms18 Jimena Novoa 5 Chance Baez Chart Complete MTDD
--- NOTE | 2016-06-09 14:25 | EDDOCDS ---
Physician Documentation [facility] Name: Maribell Herrera Age: 55 yrs Sex: Female : 1960 Arrival Date: 06/07/2016 Time: 08:08 Bed 17 Private MD: Disposition: 06/07 12:19 Critical Care: Critical care not applicable. pc Disposition: 06/07/16 12:21 Hospitalization ordered by Selina Tran for Inpatient Admission. Preliminary diagnosis are Generalized abdominal pain, Chronic pain syndrome. - Bed requested for 4 [place]. - Status is Inpatient Admission. mlb1 - Condition is Stable. - Problem is an ongoing problem. - Symptoms are unchanged. HPI: 08:40 This 55 yrs old Female presents to ER via Ambulance with complaints of pc Abdominal Pain. 08:40 The history is obtained from the patient. She has had a loss of appetite, nausea pc without vomiting and abdominal pain since her cholecystectomy 2-3 weeks ago. She signed out against medical advice and says her symptoms were present while in hospital and her pain was not any better after surgery so she just left. She has chronic constipation and chronic pain syndrome and states her medications are not working like they used to. She has not contacted her pain clinic for this concern. She has HAE and has frequent episodes of abdominal pain but this pain is unchanged for nearly three weeks. She denies any fevers or chills, or Resp symptoms. Historical: - Allergies: Aspirin; Codeine Sulfate; GABAPENTIN; Morphine; PENICILLINS; PENTAZOCINE; pregabalin; Prochlorperazine Maleate; Toradol; - Home Meds: 1. amlodipine 10 mg Oral tab 1 tab once daily 2. atenolol 50 mg Oral tab 1 tab once daily 3. Belsomra 20 mg oral tab 1 tab nightly 4. Berinert 500 unit (10 mL) intravenous kit 2000 units as needed 5. calcium carbonate 500 mg calcium (1,250 mg) oral chew daily 6. cetirizine 10 mg oral tab 1 tab once daily 7. Colace 100 mg oral cap 1 cap three times a day 8. clonazepam 2 mg Oral tab 1 tab 3 times per day 9. Cymbalta 30 mg Oral cpDR 1 cap 2 times per day 10. ferrous sulfate 325 mg (65 mg iron) Oral tab as needed 11. hydrochlorothiazide 50 mg Oral tab 1 tab once daily 12. Klor-Con 10 10 mEq Oral TbER 1 tab 2 times per day 13. magnesium oxide 400 mg Oral tab daily 14. Miralax 17 gram Oral pwpk 1 packet as needed 15. Mirapex 0.25 mg Oral tab 1 tab daily 16. oxycodone 15 mg oral Tb12 1 tab every 4 hours as needed 17. pramipexole 0.125 mg oral tab nightly 18. promethazine 25 mg Oral tab 1 tab twice daily as needed as needed 19. Prilosec 40 mg Oral cpDR 1 cap once daily 20. OxyContin 40 mg Oral TR12 1 tab every 12 hours - PMHx: angioedema; Cancer, Breast - Left; Degenerative disc disease; Hepatitis B; Hepatitis C; Hypertension; neuropathy; Osteoporosis; - PSHx: Tracheostomy; Cholecystectomy; Mastectomy- Left; Appendectomy; Orthopedic Surgery; Infusa port insertion; - The history from nurses notes was reviewed: and I agree with what is documented. - Social history: Smoking status: No barriers to communication noted, The patient speaks fluent Romanian, Speaks appropriately for age. - : The pt / caregiver states he / she is not on anticoagulants. Home medication list is obtained from the patient. - Exposure Risk Screening:: None identified. - Immunization history:: All immunizations up-to-date. - Family history: Not pertinent. - Social history:: the patient is a non-smoker, the patient does not drink alcohol. ROS: 08:40 All systems are negative except as listed. pc Exam: 08:40 General Appearance: no acute distress, alert. pc 08:40 EENT: normal eye inspection, ears, nose and throat normal, pharynx normal, mucous membranes moist 08:40 Neck: tracheostomy in place. 08:40 Respiratory: no respiratory distress, normal breath sounds. 08:40 CVS: regular pulse rate, regular rhythm, normal S1 and S2, no murmurs, strong peripheral pulses. 08:40 Abdomen: soft, non-tender, no organomegaly, bowel sounds diminished. 08:40 Back: normal inspection. 08:40 Skin: skin color is normal, warm, dry. 08:40 Extremities: The extremities have a grossly normal appearance. 08:40 Neuro: oriented x 3, cranial nerves normal as tested, no motor deficits, no sensory deficits. 08:40 Psych: normal mood. Vital Signs: 08:17 BP 158 / 81 RA Supine (auto/reg); Pulse 82 LA; Resp 18; Temp 99.8(O); Pulse Ox 98% on tk R/A; Weight 65.77 kg / 145 lbs; Height 5 ft. 0 in. (152.40 cm); Pain 8/10; 10:29 BP 142 / 68; Pulse 74; Resp 16; Pulse Ox 99% on R/A; Pain 8/10; mlb1 13:21 BP 139 / 71; Pulse 76; Resp 16; Temp 99.5(O); Pulse Ox 97% on R/A; Pain 7/10; mlb1 08:17 Body Mass Index 28.32 (65.77 kg, 152.40 cm) tk MDM: 08:38 heparin 100units/mL flush (infusaport) 5 ml IVP once; flush first with 10mL of NS pc followed by heparin ordered. 08:38 Access Infusaport ordered. pc 08:38 NS 0.9% 500 ml IV at bolus once ordered. pc 08:39 CBC with Diff Ordered. EDMS 08:39 MED Profile Ordered. EDMS 08:39 Liver Profile Ordered. EDMS 08:39 Lipase Ordered. EDMS 08:40 Misc. Nursing Order ordered. pc 08:40 Differential Diagnosis: nausea, abdominal pain since cholecystectomy r/o post op pc complication/infection; chronic pain syndrome; chronic OIC. Plan: labs, CT, home analgesics. 09:13 CT ABD & PELVIS: No Contrast Ordered. EDMS 09:19 oxyCODONE 15 mg PO once ordered. mlb1 09:27 CBC with Diff Reviewed. pc 10:25 MED Profile Reviewed. pc 10:25 Liver Profile Reviewed. pc 10:25 Lipase Reviewed. pc 10:25 CT ABD & PELVIS: No Contrast Reviewed. pc 10:46 [facility] [place] Payment Agreement was scanned into [employer] and attached to record. jp5 10:46 Financial registration complete. jp5 12:10 Ondansetron ODT Oral Disintegrating Tablet 4 mg PO once ordered. mlb1 12:19 Data reviewed: old medical records, vital signs, nurses notes, lab test results, all pc radiology studies and available results. Test interpretation: LAB - all labs as ordered have been reviewed, interpreted and considered in the overall management of the clinical presentation; interpreted by Radiologist and personally reviewed, discussed with Radiologist, Abdomen/Pelvis CT; pericolic fluid consistent with post-op collection but bile leak not ruled out. The patient has been re-examined and re-evaluated. There is no appreciated change of the patient's symptoms at this time. Physician consultation: Dr. Carter Michael MD regarding consult, and will see patient in ED. 12:19 Physician consultation: Dr. Selina Tran regarding admission, and will see patient in ED, shortly. Disposition: The historical points, examination findings, and any diagnostic results supporting the provided diagnosis, were discussed with the patient or legal guardian. The need for further work-up and/or treatment in the hospital was explained. 12:36 Admission / Observation Status ordered. EDMS 12:36 REGULAR DIET ordered. EDMS 12:36 NPO FOR TEST/PROCEDURE ordered. EDMS 12:37 URINALYSIS Ordered. EDMS 12:37 URINE CULTURE Ordered. EDMS 12:37 HIDA/BILLIARY TREE (GB) Ordered. EDMS Administered Medications: 09:15 Drug: NS 0.9% 500 ml [sodium chloride 0.9 % injection solution] Route: IV; Rate: bolus; mlb1 Site: Implantable Access Device; 09:25 Drug: oxyCODONE 15 mg [oxycodone 5 mg tablet (3 tabs)] Route: PO; mlb1 10:29 Follow up: BP 142 / 68; Pulse 74 bpm; Resp 16 bpm; Pulse Ox 99% RA; Pain 8/10 Adult; mlb1 Response: No significant change. 10:40 Drug: heparin 100units/mL flush (infusaport) 5 ml Route: IVP; Site: Implantable Access mlb1 Device; 12:12 Drug: Ondansetron ODT 4 mg [ondansetron 4 mg disintegrating tablet (1 tabs)] Route: PO; mlb1 Signatures: Dispatcher [employer] EDMS Jeromy Townsend MD MD Carlos Pino RN RN mlb1 Shannan Cantu RN RN kaa Price, Jennalee jp5 The chart was reviewed and I authenticate all verbal orders and agree with the evaluation and treatment provided.Corrections: (The following items were deleted from the chart) 09:23 08:39 CT ABD & PELVIS WITH CONTRAST+CT ordered. EDMS EDMS Attachments: 10:46 [facility] Payment Agreement jp5 Chart Complete MTDD
[2016-06-09] MEDS: [UNRECOGNIZED DRUG - OTHER] IV PRN (20:50)
[2016-06-09 21:00] VITALS: BP 123/80
[2016-06-09] MEDS: PRAMIPEXOLE 0.25 MG TAB PO SCH (21:16)
[2016-06-09 22:00] VITALS: BP 119/67
[2016-06-10] MEDS: HYDROmorphone HCL 1 MG/ML SYRINGE (J1170) IV PRN ×5 (01:29→21:44)
[2016-06-10] MEDS: SODIUM CHLORIDE 0.9% INJ 10 ML SYR IV PRN ×2 (01:29→05:27)
[2016-06-10] MEDS: HEPARIN SOD (PORCINE) 5000 UNITS/ML VIAL SC SCH ×3 (05:27→21:36)
[2016-06-10 05:54] LABS: BASO % 0.6 % (0.0-1.0); EOS # 0.1 K/mm3 (0.0-0.50); EOS % 2.9 % (0.0-3.0); LARGE UNSTAINED CELL # 0.1 K/mm3 (0.0-0.4); LARGE UNSTAINED CELL % 1.9 % (0.0-4.0); LYMPH # 2.1 K/mm3 (1.5-4.5); LYMPH % 46.1 % (24.0-44.0); MEAN CORPUSCULAR HEMOGLOBIN 28.2 pg (27.0-33.0); MEAN CORPUSCULAR HGB CONC 30.8 g/dl (32.0-36.5); MEAN CORPUSCULAR VOLUME 91.5 fl (80.0-96.0); MONO # 0.2 K/mm3 (0.0-0.8); MONO % 3.8 % (0.0-5.0); NEUTROPHILS # 1.9 K/mm3 (1.8-7.7); NEUTROPHILS % 44.6 % (36.0-66.0); PLATELET COUNT, AUTOMATED 235 k/mm3 (150-450); RED CELL DISTRIBUTION WIDTH 15.5 % (11.5-14.5); WHITE BLOOD COUNT 4.3 K/mm3 (4.0-10.0)
[2016-06-10 06:00] VITALS: BP 114/63
[2016-06-10 06:37] LABS: ALBUMIN 2.3 GM/DL (3.2-5.2); ALBUMIN/GLOBULIN RATIO 0.66 (1.00-1.93); ALKALINE PHOSPHATASE 710 U/L (45-117); ALT/SGPT 26 U/L (12-78); ANION GAP 7 MEQ/L (8-16); AST/SGOT 64 U/L (15-37); BILIRUBIN,TOTAL 0.9 MG/DL (0.2-1.0); BLOOD UREA NITROGEN 16 MG/DL (7-18); CALCIUM LEVEL 8.2 MG/DL (8.5-10.1); CARBON DIOXIDE LEVEL 30 MEQ/L (21-32); CHLORIDE LEVEL 111 MEQ/L (98-107); CREATININE FOR GFR 0.65 MG/DL (0.55-1.02); GLOMERULAR FILTRATION RATE > 60.0 (>51); GLUCOSE, FASTING 88 MG/DL (70-105); POTASSIUM SERUM 4.5 MEQ/L (3.5-5.1); SODIUM LEVEL 148 MEQ/L (136-145); TOTAL PROTEIN 5.8 GM/DL (6.4-8.2)
[2016-06-10] MEDS: DULoxetine 30 MG CAP (CYMBALTA) PO SCH (09:23)
[2016-06-10] MEDS: clonazePAM 1 MG TAB PO SCH ×3 (09:23→21:34)
[2016-06-10] MEDS: MECLIZINE 25 MG TABLET PO SCH ×3 (09:23→21:35)
[2016-06-10] MEDS: oxyCODONE 40 MG CR TAB PO SCH ×2 (09:23→21:34)
--- NOTE | 2016-06-10 09:33 | REP ---
MRCP examination: History: Abnormal HIDA scan June 08, 2016. Comparison CT study June 07, 2016. The patient is post cholecystectomy. Technique: Axial and coronal T2-weighted HASTE and true FISP images are acquired. In addition, an MRCP is acquired with T2-weighted turbo spin echo imaging. Source coronal images are viewed and maximal intensity projection images are generated and viewed rotationally. MRCP findings: The study shows mild to moderate diffuse abdominal ascites. There is evidence of a small cyst in the upper pole of each kidney. There is a right adrenal nodule with heterogeneous signal intensity pattern measuring 3 cm in greatest diameter. This is seen on the CT scan. This is unchanged from a prior CT study in January of 2014 and is therefore felt to be consistent with a benign adrenal adenoma. There is intra- and extrahepatic biliary duct dilation moderate in degree. The common bile duct measures 14 mm distally in greatest AP dimension. Closer to the william, the tortuous common hepatic duct measures 13 mm. The main pancreatic duct is dilated as well measuring 5-6 mm. The T2 HASTE sequence and one of the MRCP source coronal sequences suggest low signal intensity filling defects or signal voids within the common bile and common hepatic duct segments which appear elongate. This may be artifactual. It is not the usual shape of gallstone in the bile duct. There is no obvious pancreatic mass lesion. No duodenal mass lesion is observed. Impression: 1. Moderate dilation of the intra- and extrahepatic biliary tree and pancreatic duct. This is seen extending to the level of the ampulla. No mass lesion is observed. Artifact versus polypoid or clot like filling defect in the common hepatic and common bile duct. 2. Ascites. 3. A stable 3 cm right adrenal mass. Signed by Adni Owens MD 06/10/2016 08:07 P
--- NOTE | 2016-06-10 10:19 | REP ---
Whole body radionuclide bone scan: History: History of breast carcinoma, question metastases. Technique: 22.0 mCi technetium 99m in the MDP is injected intravenously through the patient's port which is on the right side. Standard whole body bone scan imaging is acquired. Scintigraphic findings: There is some retained uptake in the right roderick clavicular region consistent with retained uptake in the port used for the injection. Otherwise, there is a normal distribution of skeletal tracer with uptake in bilateral kidneys and in the urinary bladder. There is a focus of increased uptake in the anterior end of the left 2nd rib and in the anterior end of the left six and seventh ribs. This may reflect rib trauma or costochondral inflammation. There is mild arthritic uptake in the knees and shoulders as well as the wrists bilaterally. There is no evidence to suggest skeletal metastatic disease. Impression: No compelling evidence of skeletal metastatic disease. Signed by Adin Owens MD 06/10/2016 08:08 P
[2016-06-10] MEDS: SENOKOT S TAB PO SCH ×2 (10:31→21:35)
[2016-06-10] MEDS: CALCIUM CARBONATE 500 MG CHEW U/D PO SCH ×2 (10:31→21:50)
[2016-06-10] MEDS: CETIRIZINE (ZyrTEC) 10 MG TAB PO SCH (10:31)
[2016-06-10] MEDS: FERROUS SULFATE 325MG TAB PO SCH (10:32)
[2016-06-10] MEDS: MIRALAX *UNIT DOSE* 17GM PACKET PO SCH ×2 (10:32→21:49)
[2016-06-10] MEDS: ATENOLOL 50 MG TAB PO SCH ×2 (10:34→21:35)
[2016-06-10] MEDS: SODIUM CHLORIDE 0.9% INJ 10 ML SYR IV SCH (10:35)
[2016-06-10] MEDS: POTASSIUM CHLORIDE 10 MEQ SR TABLET PO SCH ×2 (12:00→21:35)
[2016-06-10] MEDS: PANTOPRAZOLE 20 MG TAB PO SCH (12:00)
[2016-06-10] MEDS: MAGNESIUM OXIDE 400 MG TAB (MAG-OX) PO SCH (12:00)
--- NOTE | 2016-06-10 12:10 | IPNPDOC ---
Text Note Date of Service The patient was seen on 06/10/16 at 12:04. NOTE Subjective: Patient is a 55 year old female with PMHx of C1 esterase deficiency, hereditary angioedema, degenerative disc disease, HTN, Hep B & C, Hx of Left Breast CA (s/p mastectomy and chemo) who presented to the ER with complaints of bilateral lower abdominal pain for 2 weeks. She recently had a laparoscopic cholecystectomy with Dr. Perkins 04/2016. Patient notes that the pain was different than her general exacerbation of hereditary angioedema. She was admitted for possible bile leak. Patient was seen and examined at the bedside. Currently she is not complaining of significant abdominal pain. Has received a dose of Berinert yesterday after trach was replaced. Objective: Vitals: (See below) General: No acute distress, laying comfortably in bed HEENT: NC, AT CVS: RRR, +S1S2 Lungs: Fair air entry b/l, - w/r/r Abdomen: Soft, ND, Tenderness diffusely, +BSx4 Extremities: No edema, no calf tenderness Assessment and plan: 1. Abdominal pain - possibly 2/2 hepatobiliary etiology, possible exacerbation of angioedema - Physical with diffuse abdominal pain - notes improvement - Elevated alkaline phosphatase - likely 2/2 extrahepatic obstruction - HIDA with findings consistent with high grade extrahepatic bile duct obstruction - MRCP was delayed because of metal trach (was replaced by ENT to plastic trach) - MRCP revealed: moderate dilation of intra/extra hepatic biliary tree + pancreatic duct, artifact vs. polypoid or clot filling defect in common hepatic and common bile duct - Will discuss with Dr. Parra - may require ERCP - Will check GGT - will c/w pain control with home medications 2. Normocytic anemia, Chronic - Hg stable - will continue to follow 3. 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 Hx of breast CA - Bone scan - no compelling evidence of skeletal metastatic disease 5. Hx of Hepatitis B adn C - will follow up as an outpatient 6. HTN - BP well controlled - will c/w Amlodipine and Atenolol 7. Right adrenal mass, chronic - outpatient evaluation 8. Chronic pain - c/w home pain regimen 9. Depression and Anxiety - c/w Duloxetine and Clonazepam 10. GI prophylaxis - c/w protonix 11. DVT prophylaxis - c/w heparin VS,Fishbone, I+O VS, Fishbone, I+O Laboratory Tests 06/10/16 05:33 Calcium Level 8.2 L, Aspartate Amino Transf (AST/SGOT) 64 H, Alanine Aminotransferase (ALT/SGPT) 26, Alkaline Phosphatase 710 H, Total Bilirubin 0.9 , Total Protein 5.8 L, Albumin 2.3 L, Red Blood Count 3.26 L, Mean Corpuscular Volume 91.5, Mean Corpuscular Hemoglobin 28.2, Mean Corpuscular Hemoglobin Concent 30.8 L, Red Cell Distribution Width 15.5 H, Neutrophils (%) (Auto) 44.6 , Lymphocytes (%) (Auto) 46.1 H, Monocytes (%) (Auto) 3.8, Eosinophils (%) (Auto ) 2.9, Basophils (%) (Auto) 0.6, Neutrophils # (Auto) 1.9, Lymphocytes # (Auto) 2.1, Monocytes # (Auto) 0.2, Eosinophils # (Auto) 0.1, Basophils # (Auto) 0.0 Vital Signs Date Time Temp Pulse Resp B/P Pulse Ox O2 Delivery O2 Flow Rate FiO2 06/10/16 10:52 18 Room Air 06/10/16 10:36 71 124/68 06/10/16 06:00 98.3 94 I&O- Last 24 Hours up to 6 AM 06/10/16 05:59 Intake Total 1680 ml Output Total 700 ml Balance 980 ml LUCIA NUNEZ MD Jun 10, 2016 12:10
[2016-06-10] MEDS: amLODIPine 10 MG TAB PO SCH (12:41)
[2016-06-10] MEDS: CIPROFLOXACIN 400 MG in APPROPRIATE DILUENT 1 EA IV SCH (13:10)
[2016-06-10 13:43] LABS: INR 0.99
[2016-06-10 14:00] VITALS: BP 114/73
[2016-06-10] MEDS: metroNIDAZOLE 500 MG in APPROPRIATE DILUENT 1 EA IV SCH ×2 (14:25→21:34)
[2016-06-10] MEDS ORDERED: ISOVUE-300 61% 50ML VIAL (Q9967) As Ordered ONE (16:55)
[2016-06-10] MEDS ORDERED: ROCURONIUM BROMIDE 50 MG/5 ML VIAL As Ordered ONE (18:19)
[2016-06-10] MEDS ORDERED: fentaNYL 100 MCG/2 ML INJECTION (J3010) As Ordered ONE ×2 (18:19→19:37)
[2016-06-10] MEDS ORDERED: MIDAZOLAM INJ 2 MG/2 ML VIAL (J2250) As Ordered ONE (18:19)
[2016-06-10] MEDS ORDERED: PROPOFOL 200 MG/20 ML VIAL As Ordered ONE (18:19)
[2016-06-10] MEDS ORDERED: NEOSTIGMINE 1MG/ML 5 ML SYRINGE (J2710) As Ordered ONE (18:20)
[2016-06-10] MEDS ORDERED: GLYCOPYRROLATE INJ 0.2 MG/ML 2 ML VIAL As Ordered ONE (18:20)
[2016-06-10] MEDS: fentaNYL 100 MCG/2 ML INJECTION (J3010) IV PRN ×3 (19:40→19:50)
--- NOTE | 2016-06-10 19:48 | ROOR ---
Patient Name: Maribell Herrera Procedure Date: 06/10/2016 5:13 PM Date of : 1960 Age: 55 Room: Main OR Gender: Female Note Status: Finalized Procedure: ERCP Indications: Abdominal pain of suspected biliary origin, Biliary dilation on Computed Tomogram Scan, Abnormal MRCP Providers: Raphael PETE MD Referring MD: 2. Inpatient 2. Inpatient Requesting Provider: Medicines: Monitored Anesthesia Care Complications: No immediate complications. Procedure: Pre-Anesthesia Assessment: - The heart rate, respiratory rate, oxygen saturations, blood pressure, adequacy of pulmonary ventilation, and response to care were monitored throughout the procedure. The Duodenoscope was introduced through the mouth, and advanced to the duodenum and used to inject contrast into the bile duct and ventral pancreatic duct. The ERCP was technically difficult and complex due to challenging cannulation because of abnormal anatomy. The patient tolerated the procedure well. Findings: The crown ironer film was normal. The esophagus was successfully intubated under direct vision without detailed examination of the pharynx, larynx, and associated structures, and upper GI tract. The upper GI tract was grossly normal. The major papilla was enlarged and congested. I see free flow of bile from papilla. This was biopsied with a cold forceps for histology. The ventral pancreatic duct was deeply cannulated with the short-nosed traction sphincterotome. Contrast was injected. I personally interpreted the pancreatic duct images. There was appropriate flow of contrast through the ducts. Image quality was suboptimal due to tortuosity and dilation of both pancreatic and bile ducts. Volume of contrast eventualy obscures portions of the anatomy. Opacification of the pancreatic duct at the head - body junction of the pancreas was successful. The maximum diameter of the ducts was 7 mm. Irregularity of the pancreatic duct was seen in the ventral pancreatic duct in the head of the pancreas- this is of uncertain etiology. Cells for cytology were obtained by brushing. A straight Roadrunner wire was passed into the biliary tree. The short-nosed traction sphincterotome was passed over the guidewire and the bile duct was then deeply cannulated. Contrast was injected. Opacification of the main bile duct was successful. The maximum diameter of the ducts was 15 mm. The entire bile duct was dilated and very tortuous making anatomic detail difficult to visualize. The common hepatic duct is tortuous. A few intrahepatic radicals are opacified, but these appear of normal caliber. This is a less than optimal ERCP due to difficult anatomy. I do not see a definite stenosis of the bile duct. I do not see any abnormal contents/stones/clots etc as suggested by MRCP. I suspect bile duct caliber change may be simply due to severe tortuosity. One 8.5 Fr by 12 cm plastic stent was placed into the common bile duct. Bile flowed through the stent. The stent was in good position. Impression: - The major papilla appeared congested- this was biopsied. - The pancreatic duct is dilated and tortuous. A possible irregularity was found in the ventral pancreatic duct in the head of the pancreas. - cytology was obtained - The entire bile duct was markedly dilated and tortuous, uncertain significance. - One plastic stent was placed into the common bile duct. Recommendation: - Observe patient's clinical course. - Due to difficult Biliary and Pancreatic anatomy, this is a limited examination. We will see her progress with empiric stenting. Stent removal or exchange will need to be done in 3-4 months. I would recommend a repeat ERCP in 3-4 months. Hopefully her biliary tree will decompress with stenting to allow for a better diagnostic eval at that time. Raphael Pete MD Raphael PETE MD 06/10/2016 7:47:58 PM This report has been signed electronically. Number of Addenda: 0 Note Initiated On: 06/10/2016 5:13 PM Estimated Blood Loss: Estimated blood loss: none.
[2016-06-10] MEDS ORDERED: ONDANSETRON 4MG/2ML VIAL (J2405) IV PRN (20:00)
[2016-06-10] MEDS ORDERED: LR 1,000 ML IV SCH (20:00)
[2016-06-10 21:39] VITALS: BP 120/63
[2016-06-10] MEDS: PRAMIPEXOLE 0.25 MG TAB PO SCH (22:06)
[2016-06-10 22:19] VITALS: BP 113/72
[2016-06-10] MEDS: oxyCODONE 5MG TAB PO PRN (23:12)
[2016-06-10 23:19] VITALS: BP 122/75
[2016-06-11 01:00] VITALS: BP 142/83
[2016-06-11] MEDS: CIPROFLOXACIN 400 MG in APPROPRIATE DILUENT 1 EA IV SCH ×2 (01:06→12:10)
[2016-06-11] MEDS: HYDROmorphone HCL 1 MG/ML SYRINGE (J1170) IV PRN ×5 (01:07→16:08)
[2016-06-11] MEDS: HEPARIN SOD (PORCINE) 5000 UNITS/ML VIAL SC SCH ×3 (05:10→21:40)
[2016-06-11] MEDS: metroNIDAZOLE 500 MG in APPROPRIATE DILUENT 1 EA IV SCH ×3 (05:10→21:40)
[2016-06-11] MEDS: SODIUM CHLORIDE 0.9% INJ 10 ML SYR IV PRN ×2 (05:10→22:56)
[2016-06-11 05:25] LABS: BASO % 0.4 % (0.0-1.0); EOS # 0.1 K/mm3 (0.0-0.50); EOS % 3.6 % (0.0-3.0); LARGE UNSTAINED CELL # 0.1 K/mm3 (0.0-0.4); LARGE UNSTAINED CELL % 1.8 % (0.0-4.0); LYMPH # 1.3 K/mm3 (1.5-4.5); LYMPH % 36.5 % (24.0-44.0); MEAN CORPUSCULAR HEMOGLOBIN 28.7 pg (27.0-33.0); MEAN CORPUSCULAR HGB CONC 32.4 g/dl (32.0-36.5); MEAN CORPUSCULAR VOLUME 88.6 fl (80.0-96.0); MONO # 0.1 K/mm3 (0.0-0.8); MONO % 3.9 % (0.0-5.0); NEUTROPHILS # 1.9 K/mm3 (1.8-7.7); NEUTROPHILS % 53.9 % (36.0-66.0); PLATELET COUNT, AUTOMATED 174 k/mm3 (150-450); RED CELL DISTRIBUTION WIDTH 14.6 % (11.5-14.5); WHITE BLOOD COUNT 3.6 K/mm3 (4.0-10.0)
[2016-06-11 05:52] LABS: ALBUMIN 2.4 GM/DL (3.2-5.2); ALBUMIN/GLOBULIN RATIO 0.69 (1.00-1.93); ALKALINE PHOSPHATASE 659 U/L (45-117); ALT/SGPT 26 U/L (12-78); ANION GAP 8 MEQ/L (8-16); AST/SGOT 57 U/L (15-37); BLOOD UREA NITROGEN 12 MG/DL (7-18); CARBON DIOXIDE LEVEL 29 MEQ/L (21-32); CHLORIDE LEVEL 106 MEQ/L (98-107); CREATININE FOR GFR 0.63 MG/DL (0.55-1.02); GLOMERULAR FILTRATION RATE > 60.0 (>51); GLUCOSE, FASTING 87 MG/DL (70-105); POTASSIUM SERUM 3.9 MEQ/L (3.5-5.1); SODIUM LEVEL 143 MEQ/L (136-145); TOTAL PROTEIN 5.9 GM/DL (6.4-8.2)
[2016-06-11 06:00] VITALS: BP 121/76
[2016-06-11] MEDS: oxyCODONE 5MG TAB PO PRN (06:41)
[2016-06-11] MEDS: FERROUS SULFATE 325MG TAB PO SCH (08:35)
[2016-06-11] MEDS: MIRALAX *UNIT DOSE* 17GM PACKET PO SCH ×2 (08:35→20:29)
[2016-06-11] MEDS: clonazePAM 1 MG TAB PO SCH ×3 (08:35→20:27)
[2016-06-11] MEDS: MECLIZINE 25 MG TABLET PO SCH ×3 (08:35→20:28)
[2016-06-11] MEDS: CETIRIZINE (ZyrTEC) 10 MG TAB PO SCH (08:35)
[2016-06-11] MEDS: CALCIUM CARBONATE 500 MG CHEW U/D PO SCH ×2 (08:35→20:26)
[2016-06-11] MEDS: SENOKOT S TAB PO SCH ×2 (08:36→20:28)
[2016-06-11] MEDS: oxyCODONE 40 MG CR TAB PO SCH ×2 (08:37→20:27)
[2016-06-11] MEDS: ATENOLOL 50 MG TAB PO SCH ×2 (08:52→20:30)
[2016-06-11] MEDS: SODIUM CHLORIDE 0.9% INJ 10 ML SYR IV SCH (09:00)
--- NOTE | 2016-06-11 09:00 | REP ---
ERCP: 43 images. History: ERCP dilated biliary and pancreatic ducts. 9-minute fluoroscopy time is reported. Findings: A sequence of 43 fluoroscopically obtained intraprocedural spot radiographs of the right upper quadrant taken during endoscopic retrograde cholangiopancreatography document cannulation and contrast injection in the biliary and pancreatic ducts and common bile duct stent placement. Signed by Adin Owens MD 06/11/2016 10:22 A
[2016-06-11 10:00] VITALS: BP 119/73
[2016-06-11] MEDS: MAGNESIUM OXIDE 400 MG TAB (MAG-OX) PO SCH (12:09)
[2016-06-11] MEDS: POTASSIUM CHLORIDE 10 MEQ SR TABLET PO SCH ×2 (12:09→20:27)
[2016-06-11] MEDS: amLODIPine 10 MG TAB PO SCH (12:09)
[2016-06-11] MEDS: PANTOPRAZOLE 20 MG TAB PO SCH (12:09)
--- NOTE | 2016-06-11 13:20 | IPNPDOC ---
Text Note Date of Service The patient was seen on 06/11/16 at 13:16. NOTE Subjective: Patient is a 55 year old female with PMHx of C1 esterase deficiency, hereditary angioedema, degenerative disc disease, HTN, Hep B & C, Hx of Left Breast CA (s/p mastectomy and chemo) who presented to the ER with complaints of bilateral lower abdominal pain for 2 weeks. She recently had a laparoscopic cholecystectomy with Dr. Perkins 04/2016. Patient notes that the pain was different than her general exacerbation of hereditary angioedema. She was admitted for possible bile leak. Patient was seen and examined at the bedside. She noted that yesterday after the procedure she was in significant pain, but this morning it has subsided. She notes that she has not required any Berinert since the ERCP procedure, but advised that she may require it soon. Objective: Vitals: (See below) General: No acute distress, laying comfortably in bed HEENT: NC, AT, Trach in place CVS: RRR, +S1S2 Lungs: Fair air entry b/l, - w/r/r Abdomen: Soft, ND, Tenderness diffusely, +BSx4 Extremities: No edema, no calf tenderness Assessment and plan: 1. Abdominal pain - possibly 2/2 hepatobiliary etiology, possible exacerbation of angioedema - Physical with diffuse abdominal pain - notes improvement - Elevated alkaline phosphatase; has been trending down - HIDA with findings consistent with high grade extrahepatic bile duct obstruction - MRCP revealed: moderate dilation of intra/extra hepatic biliary tree + pancreatic duct, artifact vs. polypoid or clot filling defect in common hepatic and common bile duct - ERCP with Dr. Parra 06/10: major papilla appeared congested, pancreatic duct dilated / tortuous, one plastic stent was placed in the common bile duct - will c/w pain control with home medications - Will continue to follow liver enzymes and watch for downward trend 2. Normocytic anemia, Chronic - Hg stable - will continue to follow 3. 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 Hx of breast CA - Bone scan - no compelling evidence of skeletal metastatic disease 5. Hx of Hepatitis B adn C - will follow up as an outpatient 6. HTN - BP well controlled - will c/w Amlodipine and Atenolol 7. Right adrenal mass, chronic - outpatient evaluation 8. Chronic pain - c/w home pain regimen 9. Depression and Anxiety - c/w Duloxetine and Clonazepam 10. GI prophylaxis - c/w protonix 11. DVT prophylaxis - c/w heparin VS,Fishbone, I+O VS, Fishbone, I+O Laboratory Tests 06/11/16 05:09 Calcium Level 8.0 L, Aspartate Amino Transf (AST/SGOT) 57 H, Alanine Aminotransferase (ALT/SGPT) 26, Alkaline Phosphatase 659 H, Total Bilirubin 1.0 , Total Protein 5.9 L, Albumin 2.4 L, Red Blood Count 2.87 L, Mean Corpuscular Volume 88.6, Mean Corpuscular Hemoglobin 28.7, Mean Corpuscular Hemoglobin Concent 32.4, Red Cell Distribution Width 14.6 H, Neutrophils (%) (Auto) 53.9, Lymphocytes (%) (Auto) 36.5, Monocytes (%) (Auto) 3.9, Eosinophils (%) (Auto) 3.6 H, Basophils (%) (Auto) 0.4, Neutrophils # (Auto) 1.9, Lymphocytes # (Auto) 1.3 L, Monocytes # (Auto) 0.1, Eosinophils # (Auto) 0.1, Basophils # (Auto) 0.0 Vital Signs Date Time Temp Pulse Resp B/P Pulse Ox O2 Delivery O2 Flow Rate FiO2 06/11/16 13:04 18 06/11/16 12:09 75 125/74 06/11/16 06:00 97.0 94 Room Air 06/10/16 19:33 100 I&O- Last 24 Hours up to 6 AM 06/11/16 05:59 Intake Total 1060 ml Output Total 350 ml Balance 710 ml LUCIA NUNEZ MD Jun 11, 2016 13:20
[2016-06-11 14:00] VITALS: BP 114/69
--- NOTE | 2016-06-11 17:39 | CR.PDOC ---
[facility] Pain Clinic Consultation General Date of Consultation: 06/11/16 Consultation Report For: YOLANDA SAUL MD Chief Complaint The patient is a 55-year-old female admitted with a reason for visit of Abd Pain. History of Present Illness Sujata Herrera is a 55-year-old female known to our practice who was seen today at the kind request of Dr. Yolanda Saul for acute on chronic abdominal pain. Sujata was admitted on 06/07/2016 status post laparoscopy laparoscopic cholecystectomy completed by Dr. Alvares 04/2016. She has been noting abdominal pain in the center abdomen radiating across the abdomen and into the pelvis for about the last 2 weeks. She reported that this is a different pain than her usual pain with hereditary angioedema. I have attempted to see her for the last several days but she was caught up in multiple tests and procedures. Today she is status post ERCP with placement of a stent. Sujata reports that while she does still have pain she is doing better. Notes that last night she was able to sleep for more than 4 hours. Rates her pain level today as an 8/10. Notes the pain is in the center midline abdomen. She has had her when necessary pain medication only twice today. Notes that she had her medication approximately 30 minutes ago and it is just starting to take effect. Reports that she is being followed by Dr. Roque pain management at [facility]. Home Medications Scheduled Amlodipine Besylate (Amlodipine Besylate) 10 Mg Tab 10 MG PO DAILY (Reported) TAKES AT NOON Atenolol (Atenolol) 50 Mg Tab 50 MG PO BID (Reported) Calcium Carbonate (Tums Ultra 1000) 1,000 Mg Chw 1,000 MG PO BID (Reported) Cetirizine HCl (Cetirizine HCl) 10 Mg Tab 10 MG PO DAILY (Reported) Clonazepam (Clonazepam) 2 Mg Tab 2 MG PO TID (Reported) Docusate Sodium (Colace) 100 Mg Cap 100 MG PO TID (Reported) Duloxetine Hcl (Cymbalta) 30 Mg Cap 60 MG PO DAILY (Reported) Ergocalciferol (Vitamin D) 50,000 Unit Cap 50,000 UNIT PO 1XWK (Reported) TAKES AT NOON ON WEDNESDAYS Ferrous Sulfate (Ferrous Sulfate) 325 Mg Tab 325 MG PO DAILY (Reported) DOES NOT TAKE IF CONSTIPATED Hydrochlorothiazide (Hydrochlorothiazide) 50 Mg Tab 50 MG PO DAILY (Reported) Magnesium Oxide (Magnesium Oxide 400) 400 Mg Tab 800 MG PO DAILY (Reported) TAKES IN AFTERNOON Meclizine HCl (Meclizine HCl) 25 Mg Tab 25 MG PO TID (Reported) Oxycodone HCl (Oxycodone HCl ER) 40 Mg Tab 40 MG PO BID (Reported) Pantoprazole Sodium (Pantoprazole Sodium) 20 Mg Tab 20 MG PO DAILY (Reported) TAKES AT NOON Potassium Chloride (Klor-Con M10) 10 Meq Tabcr 20 MEQ PO BID (Reported) AFTERNOON AND QHS Pramipexole Dihydrochloride (Mirapex) 0.25 Mg Tab 0.25 MG PO QHS (Reported) Scheduled PRN Acetaminophen (Tylenol) 325 Mg Tab 650 MG PO Q4H PRN PRN PAIN (Reported) Azelastine Hydrochloride (Azelastine HCl) 137 Mcg/[place] Spr 1 SPRAY NA DAILY PRN PRN ALLERGIES (Reported) C1 Esterase Inhibitor (Human) (Berinert) 500 Unit Inj 2,000 UNIT IV ASDIRECTED PRN PRN FLARE UP (Reported) Magnesium Citrate (Citrate of Magnesia) 1 Tasha Tasha 300 ML PO DAILY PRN PRN CONSTIPATION (Reported) Oxycodone Hcl (Oxycodone HCl) 30 Mg Tab 30 MG PO Q6H PRN PRN PAIN (Reported) Penciclovir (Denavir) 1 Dose/5 Gm Cream 1 DOSE TOP DAILY PRN PRN COLD SORE ( Reported) APPLIED TO LIPS Polyethylene Glycol (Miralax) 1 Pow Pow 17 GM PO DAILY PRN PRN CONSTIPATION ( Reported) Promethazine HCl (Promethazine HCl) 25 Mg Tab 25 MG PO BID PRN PRN NAUSEA ( Reported) Suvorexant (Belsomra) 20 Mg Tab 20 MG PO QHS PRN PRN SLEEP (Reported) Tizanidine Hydrochloride (Tizanidine HCl) 4 Mg Cap 4 MG PO TID PRN PRN MUSCLE SPASMS (Reported) Triamcinolone Acet (Triamcinolone Acetonide 0.1% Crm) 1 Dose/15 Gm Cr 1 DOSE TOP BID PRN PRN RASH (Reported) APPLY TO AFFECTED AREAS (PSORIASIS) Allergies Coded Allergies: Aspirin (Verified Allergy, Severe, TRIGGERS ANGIOEDEMA, 08/23/12) Codeine (Verified Allergy, Severe, EXACERBATES ANGIOEDEMA, 08/23/12) Ketorolac (Verified Allergy, Intermediate, HIVES, 05/16/16) PT HAS TAKEN IBUPROFEN IN THE PAST WITHOUT ANY ISSUES Penicillins (Verified Allergy, Intermediate, HIVES, RASH, 08/23/12) HIVES, WORSENS ANGIOEDEMA Pentazocine (Verified Adverse Reaction, Severe, HALLUCINATIONS, 08/23/12) Prochlorperazine (Verified Adverse Reaction, Severe, SEVERE ANXIETY, ) Gabapentin (Verified Adverse Reaction, Intermediate, CONFUSION, 08/23/12) Pregabalin (Verified Adverse Reaction, Intermediate, CONFUSION, 08/23/12) Morphine (Verified Adverse Reaction, Mild, HEADACHES,CONFUSION, 08/23/12) Ondansetron (Verified Adverse Reaction, Mild, CONFUSION, 08/23/12) Past Medical History Medical History Past medical history positive for C1 esterase deficiency. Hereditary angioedema degenerative disc disease hypertension history of hepatitis B and C history of breast cancer status post mastectomy and chemotherapy's history of recent laparoscopic cholecystectomy for cholelithiasis. Status post ERCP consistent which disc for management of high-grade extrahepatic bile duct obstruction. Family History Significant Family History: Other (other family members with C1 esterase deficiency and hereditary angioedema) Social History Psychosocial History: Other (history of anxiety and depression) Smoker: non-smoker Alcohol: denies Drugs: denies (use of illicit substances.) Review of Systems Subjective Constitutional: Reports: fatigue, nausea with pain, other, weakness ( generalized) HEENT: Reports: difficulty swallowing, other (chronic trachea with recent replacement for with plastic cannula), throat swelling (with flare of angioedema ) Pulmonary: Reports: cough (intermittent cough), other (sleep apnea and uses CPAP), sputum production (per tracheostomy), wheezing (intermittent) Cardiovascular: Denies: chest pain, edema, palpitations Gastrointestinal: Reports: abdominal pain, normal bowel movements (last yesterday), other (bloating) Genitourinary: Reports: normal urination Hematologic: Reports: anemia, blood clots, blood dyscrasias, easy bleeding, easy bruising, enlarged lymph nodes, other (C1 esterase deficiency, hereditary angioedema on replacement medication), swollen glands Endocrine: Reports: Polyuria, Denies: Diabetes mellitus, Thyroid dysfunction Musculoskeletal: Reports: joint pain, muscle stiffness Neurological: Reports: confusion, Denies: headache, numbness, other Physical Examination Physical Examination Vital Signs/I&O Vital Signs Date Time Temp Pulse Resp B/P Pulse Ox O2 Delivery O2 Flow Rate FiO2 06/11/16 16:08 16 06/11/16 12:09 75 125/74 06/11/16 06:00 97.0 94 Room Air 06/10/16 19:33 100 I&O- Last 24 Hours up to 6 AM 06/11/16 06:00 Intake Total 1080 ml Output Total 350 ml Balance 730 ml Recent Travel/Sick Contacts: Denies: Recent sick contacts, Recent travel General Exam: Positive: alert, attentive, no acute distress, oriented times three, talkative Visual Analog Score (VAS) For: 8 ENT EXAM: Positive: normocephalic Neck Exam: Positive: Other (talking trach in position) Chest Exam: Positive: Decreased breath sounds, Other (few scattered wheezes heard at the bases) Heart Exam: Positive: Normal S1, S2, Regular rate and rhythm, Negative: Murmurs, Rubs Abdominal Exam: Positive: BS Hyperactive, Other (abdomen is tender and distended.) Extremity Exam: Negative: Edema Skin Exam: Positive: Dry, Warm, Negative: Lesions, Rashes Laboratory Data Labs 24H Laboratory Tests 2 06/11/16 05:09: Blood Urea Nitrogen 12, Creatinine 0.63, Sodium Level 143, Potassium Level 3.9, Chloride Level 106, Carbon Dioxide Level 29, Calcium Level 8.0L, Aspartate Amino Transf (AST/SGOT) 57H, Alanine Aminotransferase (ALT/SGPT) 26, Alkaline Phosphatase 659H, Total Bilirubin 1.0, Total Protein 5.9L, Albumin 2.4L, Albumin /Globulin Ratio 0.69L, Anion Gap 8, White Blood Count 3.6L, Red Blood Count 2.87L, Hemoglobin 8.3L, Hematocrit 25.4L, Mean Corpuscular Volume 88.6, Mean Corpuscular Hemoglobin 28.7, Mean Corpuscular Hemoglobin Concent 32.4, Red Cell Distribution Width 14.6H, Platelet Count 174, Neutrophils (%) (Auto) 53.9, Lymphocytes (%) (Auto) 36.5, Monocytes (%) (Auto) 3.9, Eosinophils (%) (Auto) 3.6H, Basophils (%) (Auto) 0.4, Neutrophils # (Auto) 1.9, Lymphocytes # (Auto) 1.3L, Monocytes # (Auto) 0.1, Eosinophils # (Auto) 0.1, Basophils # (Auto) 0.0, Glomerular Filtration Rate > 60.0, Large Unclassified Cells # 0.1, Large Unclassified Cells % 1.8 Diagnostic and Imaging Studies 1. abdominal pain with recent finding of high-grade extrahepatic bile duct obstruction now with stent placed following ERCP 2. C1 esterase deficiency and hereditary angioedema 3. Chronic pain on long-term opioid medications Assessment At this time Maribell returns reporting that she is improving in terms of her abdominal pain. Her current pain medications include OxyContin and when necessary oxycodone. She is currently being followed by pain management with Dr. Roque. I would make no changes in her pain medications and expect that she would be discharged home on her previous medications. I did review the [facility] I-Stop and placed a copy of this on the chart Thank you Dr. Lee, for allowing us to participate in the care of your patient, Maribell Herrera. Should you have any questions we'll be glad to discuss this with you at any time. Lainey Panchal NEUROLOGY PROFESSOR Jun 11, 2016 17:38
[2016-06-11] MEDS: PRAMIPEXOLE 0.25 MG TAB PO SCH (20:27)
[2016-06-11 22:00] VITALS: BP 104/62
[2016-06-12] MEDS: HYDROmorphone HCL 1 MG/ML SYRINGE (J1170) IV PRN ×6 (00:37→22:52)
[2016-06-12] MEDS: CIPROFLOXACIN 400 MG in APPROPRIATE DILUENT 1 EA IV SCH ×2 (00:37→12:14)
[2016-06-12] MEDS: SODIUM CHLORIDE 0.9% INJ 10 ML SYR IV PRN ×3 (00:38→22:52)
[2016-06-12] MEDS: metroNIDAZOLE 500 MG in APPROPRIATE DILUENT 1 EA IV SCH (05:11)
[2016-06-12] MEDS: oxyCODONE 5MG TAB PO PRN ×3 (05:12→21:09)
[2016-06-12] MEDS: HEPARIN SOD (PORCINE) 5000 UNITS/ML VIAL SC SCH ×3 (05:12→21:09)
[2016-06-12 05:57] LABS: BASO % 0.3 % (0.0-1.0); EOS # 0.1 K/mm3 (0.0-0.50); EOS % 2.5 % (0.0-3.0); LARGE UNSTAINED CELL # 0.1 K/mm3 (0.0-0.4); LYMPH # 1.4 K/mm3 (1.5-4.5); LYMPH % 50.1 % (24.0-44.0); MEAN CORPUSCULAR HEMOGLOBIN 28.9 pg (27.0-33.0); MEAN CORPUSCULAR HGB CONC 32.7 g/dl (32.0-36.5); MEAN CORPUSCULAR VOLUME 88.4 fl (80.0-96.0); MONO # 0.1 K/mm3 (0.0-0.8); MONO % 4.3 % (0.0-5.0); NEUTROPHILS # 1.2 K/mm3 (1.8-7.7); NEUTROPHILS % 40.7 % (36.0-66.0); PLATELET COUNT, AUTOMATED 164 k/mm3 (150-450); RED CELL DISTRIBUTION WIDTH 14.7 % (11.5-14.5); WHITE BLOOD COUNT 2.9 K/mm3 (4.0-10.0)
[2016-06-12 06:00] VITALS: BP 121/65
[2016-06-12 06:28] LABS: ALBUMIN 2.4 GM/DL (3.2-5.2); ALBUMIN/GLOBULIN RATIO 0.69 (1.00-1.93); ALKALINE PHOSPHATASE 605 U/L (45-117); ALT/SGPT 21 U/L (12-78); ANION GAP 7 MEQ/L (8-16); AST/SGOT 34 U/L (15-37); BILIRUBIN,TOTAL 0.7 MG/DL (0.2-1.0); BLOOD UREA NITROGEN 9 MG/DL (7-18); CALCIUM LEVEL 8.2 MG/DL (8.5-10.1); CARBON DIOXIDE LEVEL 29 MEQ/L (21-32); CHLORIDE LEVEL 109 MEQ/L (98-107); CREATININE FOR GFR 0.66 MG/DL (0.55-1.02); GLOMERULAR FILTRATION RATE > 60.0 (>51); GLUCOSE, FASTING 101 MG/DL (70-105); POTASSIUM SERUM 4.1 MEQ/L (3.5-5.1); SODIUM LEVEL 145 MEQ/L (136-145); TOTAL PROTEIN 5.9 GM/DL (6.4-8.2)
[2016-06-12 08:20] LABS: RETIC HEMOGLOBIN CONTENT CHr 32.3 PG (24-36); RETICULOCYTE ABSOLUTE ADVIA212 70 x10(9)/L (17-77)
[2016-06-12 08:28] LABS: FERRITIN 96 NG/ML (8-252); PERCENT SATURATION 17.2 % (13.2-37.4); TOTAL IRON BINDING CAPACITY 169 UG/DL (250-450)
[2016-06-12] MEDS: CALCIUM CARBONATE 500 MG CHEW U/D PO SCH ×2 (09:33→20:05)
[2016-06-12] MEDS: MIRALAX *UNIT DOSE* 17GM PACKET PO SCH ×2 (09:33→20:05)
[2016-06-12] MEDS: oxyCODONE 40 MG CR TAB PO SCH ×2 (09:34→20:07)
[2016-06-12] MEDS: SENOKOT S TAB PO SCH ×2 (09:34→20:06)
[2016-06-12] MEDS: MECLIZINE 25 MG TABLET PO SCH ×3 (09:34→20:06)
[2016-06-12] MEDS: FERROUS SULFATE 325MG TAB PO SCH (09:34)
[2016-06-12] MEDS: clonazePAM 1 MG TAB PO SCH ×3 (09:34→20:06)
[2016-06-12] MEDS: CETIRIZINE (ZyrTEC) 10 MG TAB PO SCH (09:35)
[2016-06-12] MEDS: SODIUM CHLORIDE 0.9% INJ 10 ML SYR IV SCH (09:35)
[2016-06-12] MEDS: ATENOLOL 50 MG TAB PO SCH ×2 (09:35→20:08)
[2016-06-12 10:54] LABS: VITAMIN B12 LEVEL 597 PG/ML (247-911)
[2016-06-12] MEDS: amLODIPine 10 MG TAB PO SCH (12:15)
[2016-06-12] MEDS: POTASSIUM CHLORIDE 10 MEQ SR TABLET PO SCH ×2 (12:15→20:06)
[2016-06-12] MEDS: MAGNESIUM OXIDE 400 MG TAB (MAG-OX) PO SCH (12:15)
[2016-06-12] MEDS: PANTOPRAZOLE 20 MG TAB PO SCH (12:16)
[2016-06-12 14:00] VITALS: BP 141/79
[2016-06-12 14:04] LABS: MEAN CORPUSCULAR HGB CONC 32.1 g/dl (32.0-36.5); MEAN CORPUSCULAR VOLUME 90.3 fl (80.0-96.0); RED CELL DISTRIBUTION WIDTH 15.7 % (11.5-14.5); WHITE BLOOD COUNT 4.5 K/mm3 (4.0-10.0)
[2016-06-12] MEDS: metroNIDAZOLE (FLAGYL) 500 MG TAB PO SCH ×2 (14:19→21:08)
--- NOTE | 2016-06-12 15:10 | IPNPDOC ---
Text Note Date of Service The patient was seen on 06/12/16 at 15:05. NOTE Subjective: Patient is a 55 year old female with PMHx of C1 esterase deficiency, hereditary angioedema, degenerative disc disease, HTN, Hep B & C, Hx of Left Breast CA (s/p mastectomy and chemo) who presented to the ER with complaints of bilateral lower abdominal pain for 2 weeks. She recently had a laparoscopic cholecystectomy with Dr. Perkins 04/2016. Patient notes that the pain was different than her general exacerbation of hereditary angioedema. She was admitted for possible bile leak. Patient was seen and examined at the bedside. She was tolerating her breakfast, no vomiting, reported some nausea. She had significant improvement in her abdominal pain. Objective: Vitals: (See below) General: No acute distress, laying comfortably in bed HEENT: NC, AT, Trach in place CVS: RRR, +S1S2 Lungs: Fair air entry b/l, - w/r/r Abdomen: Soft, ND, Tenderness diffusely, +BSx4 Extremities: No edema, no calf tenderness Assessment and plan: 1. Abdominal pain - possibly 2/2 hepatobiliary etiology, possible exacerbation of angioedema - Improved form admission - MRCP revealed: moderate dilation of intra/extra hepatic biliary tree - s/p ERCP with Dr. Parra 06/10 - s/p stent placement - will c/w pain control with home medications - alkaline phosphatase trending down - will continue to follow 2. Normocytic anemia, Chronic - Hg stable - will continue to follow 3. 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 Hx of breast CA - Bone scan - no compelling evidence of skeletal metastatic disease 5. Hx of Hepatitis B adn C - will follow up as an outpatient 6. HTN - BP well controlled - will c/w Amlodipine and Atenolol 7. Right adrenal mass, chronic - outpatient evaluation 8. Chronic pain - c/w home pain regimen 9. Depression and Anxiety - c/w Duloxetine and Clonazepam 10. GI prophylaxis - c/w protonix 11. DVT prophylaxis - c/w heparin VS,Fishbone, I+O VS, Fishbone, I+O Laboratory Tests 06/12/16 05:22 Calcium Level 8.2 L, Aspartate Amino Transf (AST/SGOT) 34, Alanine Aminotransferase (ALT/SGPT) 21, Alkaline Phosphatase 605 H, Total Bilirubin 0.7 , Total Protein 5.9 L, Albumin 2.4 L, Red Blood Count 2.71 L, Mean Corpuscular Volume 88.4, Mean Corpuscular Hemoglobin 28.9, Mean Corpuscular Hemoglobin Concent 32.7, Red Cell Distribution Width 14.7 H, Neutrophils (%) (Auto) 40.7, Lymphocytes (%) (Auto) 50.1 H, Monocytes (%) (Auto) 4.3, Eosinophils (%) (Auto) 2.5, Basophils (%) (Auto) 0.3, Neutrophils # (Auto) 1.2 L, Lymphocytes # (Auto) 1.4 L, Monocytes # (Auto) 0.1, Eosinophils # (Auto) 0.1, Basophils # (Auto) 0.0 06/12/16 13:29 Red Blood Count 3.00 L, Mean Corpuscular Volume 90.3, Mean Corpuscular Hemoglobin 29.0, Mean Corpuscular Hemoglobin Concent 32.1, Red Cell Distribution Width 15.7 H Vital Signs Date Time Temp Pulse Resp B/P Pulse Ox O2 Delivery O2 Flow Rate FiO2 06/12/16 14:19 20 06/12/16 12:15 71 121/65 06/12/16 08:30 Room Air 06/12/16 06:00 99.8 94 06/10/16 19:33 100 I&O- Last 24 Hours up to 6 AM 06/12/16 06:00 Intake Total 1300 ml Output Total 1050 ml Balance 250 ml LUCIA NUNEZ MD Jun 12, 2016 15:10
[2016-06-12] MEDS: CIPROFLOXACIN 500 MG TAB PO SCH (18:13)
[2016-06-12] MEDS: PRAMIPEXOLE 0.25 MG TAB PO SCH (20:06)
[2016-06-12 22:00] VITALS: BP 117/72
[2016-06-13] MEDS: HYDROmorphone HCL 1 MG/ML SYRINGE (J1170) IV PRN ×2 (01:20→05:09)
[2016-06-13] MEDS: oxyCODONE 5MG TAB PO PRN ×4 (03:29→19:33)
[2016-06-13] MEDS: metroNIDAZOLE (FLAGYL) 500 MG TAB PO SCH ×3 (05:08→21:35)
[2016-06-13] MEDS: CIPROFLOXACIN 500 MG TAB PO SCH ×2 (05:08→17:35)
[2016-06-13] MEDS: HEPARIN SOD (PORCINE) 5000 UNITS/ML VIAL SC SCH ×3 (05:08→21:37)
[2016-06-13 06:00] VITALS: BP 101/57
[2016-06-13] MEDS: CALCIUM CARBONATE 500 MG CHEW U/D PO SCH ×2 (08:59→21:38)
[2016-06-13] MEDS: clonazePAM 1 MG TAB PO SCH ×3 (08:59→21:35)
[2016-06-13] MEDS: FERROUS SULFATE 325MG TAB PO SCH (09:00)
[2016-06-13] MEDS: ATENOLOL 50 MG TAB PO SCH ×2 (09:00→21:00)
[2016-06-13] MEDS: CETIRIZINE (ZyrTEC) 10 MG TAB PO SCH (09:00)
[2016-06-13] MEDS: MIRALAX *UNIT DOSE* 17GM PACKET PO SCH ×2 (09:00→21:00)
[2016-06-13] MEDS: SENOKOT S TAB PO SCH ×2 (09:00→21:00)
[2016-06-13] MEDS: MECLIZINE 25 MG TABLET PO SCH ×3 (09:01→21:35)
[2016-06-13] MEDS: oxyCODONE 40 MG CR TAB PO SCH ×2 (09:01→21:36)
[2016-06-13] MEDS: SODIUM CHLORIDE 0.9% INJ 10 ML SYR IV SCH (09:02)
[2016-06-13] MEDS: PANTOPRAZOLE 20 MG TAB PO SCH (12:52)
[2016-06-13] MEDS: DICYCLOMINE 10 MG CAP PO PRN (12:52)
[2016-06-13] MEDS: MAGNESIUM OXIDE 400 MG TAB (MAG-OX) PO SCH (12:52)
[2016-06-13] MEDS: POTASSIUM CHLORIDE 10 MEQ SR TABLET PO SCH ×2 (12:53→21:35)
[2016-06-13] MEDS: amLODIPine 10 MG TAB PO SCH (12:55)
--- NOTE | 2016-06-13 13:50 | IPNPDOC ---
Text Note Date of Service The patient was seen on 06/13/16 at 13:49. NOTE Subjective: Patient is a 55 year old female with PMHx of C1 esterase deficiency, hereditary angioedema, degenerative disc disease, HTN, Hep B & C, Hx of Left Breast CA (s/p mastectomy and chemo) who presented to the ER with complaints of bilateral lower abdominal pain for 2 weeks. She recently had a laparoscopic cholecystectomy with Dr. Perkins 04/2016. Patient notes that the pain was different than her general exacerbation of hereditary angioedema. She was admitted for possible bile leak. Patient was seen and examined at the bedside. She noted that she is not in significant pain at this time, but has experienced significant abdominal pain yesterday. Notes that she had a few episodes of loose stools. Objective: Vitals: (See below) General: No acute distress, laying comfortably in bed HEENT: NC, AT, Trach in place CVS: RRR, +S1S2 Lungs: Fair air entry b/l, - w/r/r Abdomen: Soft, ND, Tenderness diffusely, +BSx4 Extremities: No edema, no calf tenderness Assessment and plan: 1. Abdominal pain - possibly 2/2 hepatobiliary etiology, possible exacerbation of angioedema - Improved form admission - MRCP revealed: moderate dilation of intra/extra hepatic biliary tree - s/p ERCP with Dr. Parra 06/10 - s/p stent placement - alkaline phosphatase trending down - will continue to follow - will c/w pain control with home medications; will discontinue Dilaudid - Will start anti-spasmodic agent for bowel contractions - Will send stool for analysis and c.diff 2. Normocytic anemia, Chronic - Hg stable - will continue to follow 3. 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 Hx of breast CA - Bone scan - no compelling evidence of skeletal metastatic disease 5. Hx of Hepatitis B adn C - will follow up as an outpatient 6. HTN - BP well controlled - will c/w Amlodipine and Atenolol 7. Right adrenal mass, chronic - outpatient evaluation 8. Chronic pain - c/w home pain regimen 9. Depression and Anxiety - c/w Duloxetine and Clonazepam 10. GI prophylaxis - c/w protonix 11. DVT prophylaxis - c/w heparin VS,Fishbone, I+O VS, Fishbone, I+O Vital Signs Date Time Temp Pulse Resp B/P Pulse Ox O2 Delivery O2 Flow Rate FiO2 06/13/16 12:55 83 106/68 06/13/16 11:26 16 06/13/16 09:00 Room Air 06/13/16 06:00 97.5 96 06/10/16 19:33 100 I&O- Last 24 Hours up to 6 AM 06/13/16 06:00 Intake Total 1620 ml Output Total 2701 ml Balance -1081 ml LUCIA NUNEZ MD Jun 13, 2016 13:50
[2016-06-13 14:00] VITALS: BP 92/62
[2016-06-13] MEDS: ONDANSETRON 4MG/2ML VIAL (J2405) IV PRN ×2 (17:35→21:37)
[2016-06-13 17:53] VITALS: BP 134/72
[2016-06-13 18:53] LABS: AMYLASE 28 U/L (25-115)
[2016-06-13] MEDS: PRAMIPEXOLE 0.25 MG TAB PO SCH (21:37)
[2016-06-13 22:00] VITALS: BP 100/70
[2016-06-14] MEDS: DICYCLOMINE 10 MG CAP PO PRN ×2 (01:40→12:32)
[2016-06-14] MEDS: oxyCODONE 5MG TAB PO PRN ×3 (01:41→12:32)
[2016-06-14] MEDS: [UNRECOGNIZED DRUG - OTHER] IV PRN (03:54)
[2016-06-14] MEDS: metroNIDAZOLE (FLAGYL) 500 MG TAB PO SCH ×3 (05:21→20:29)
[2016-06-14] MEDS: CIPROFLOXACIN 500 MG TAB PO SCH ×2 (05:21→16:17)
[2016-06-14] MEDS: HEPARIN SOD (PORCINE) 5000 UNITS/ML VIAL SC SCH ×3 (05:22→20:30)
[2016-06-14 06:00] VITALS: BP 146/79
[2016-06-14] MEDS: SODIUM CHLORIDE 0.9% INJ 10 ML SYR IV SCH (09:00)
[2016-06-14] MEDS: HYDROmorphone 2 MG TAB PO PRN ×2 (10:00→16:18)
--- NOTE | 2016-06-14 10:00 | REP ---
Supine KUB 06/14/2016 Indication: Exclude obstruction Comparison made with CT pelvis 06/07/2016, MR by of the abdomen 06/10/2016 There is a large amount of hepatomegaly, with the liver approximately 21.5 cm craniocaudal dimension. The spleen is moderately enlarged, approximately 16 cm in length. There is a indwelling stent, likely biliary, seen predominately to the right of midline. The bowel gas is mostly central in location which can be contributed to by splenomegaly and hepatomegaly, or can be seen with ascites. There are a few air-filled mildly prominent loops of small bowel in the left mid abdomen. Air is identified within the transverse colon. There has been prior ORIF of the right hip Impression 1. Large hepatomegaly and moderate splenomegaly. 2. Crowding of bowel gas in the central abdomen may be secondary to hepatomegaly and splenomegaly, or possibly ascites. 3. Biliary stent. 4. Mildly prominent loop of small bowel in the left mid abdomen. Absent gas within the left colon. Consider upright upright KUB . Distal colonic obstruction cannot be completely excluded. Signed by Marion Lala MD 06/14/2016 09:51 A
[2016-06-14] MEDS: oxyCODONE 40 MG CR TAB PO SCH ×2 (10:01→20:30)
[2016-06-14] MEDS: ONDANSETRON 4MG/2ML VIAL (J2405) IV PRN (10:01)
[2016-06-14] MEDS: CALCIUM CARBONATE 500 MG CHEW U/D PO SCH ×2 (10:01→20:29)
[2016-06-14] MEDS: CETIRIZINE (ZyrTEC) 10 MG TAB PO SCH (10:01)
[2016-06-14] MEDS: FERROUS SULFATE 325MG TAB PO SCH (10:02)
[2016-06-14] MEDS: clonazePAM 1 MG TAB PO SCH ×3 (10:02→20:28)
[2016-06-14] MEDS: ATENOLOL 50 MG TAB PO SCH ×2 (10:02→20:30)
[2016-06-14] MEDS: MECLIZINE 25 MG TABLET PO SCH ×3 (10:02→20:29)
[2016-06-14] MEDS: SENOKOT S TAB PO SCH ×2 (10:08→20:29)
[2016-06-14] MEDS: MIRALAX *UNIT DOSE* 17GM PACKET PO SCH ×2 (10:08→20:30)
[2016-06-14 10:10] LABS: BASO % 0.4 % (0.0-1.0); EOS # 0.1 K/mm3 (0.0-0.50); EOS % 1.7 % (0.0-3.0); LARGE UNSTAINED CELL # 0.1 K/mm3 (0.0-0.4); LARGE UNSTAINED CELL % 2.1 % (0.0-4.0); LYMPH # 2.1 K/mm3 (1.5-4.5); LYMPH % 45.2 % (24.0-44.0); MEAN CORPUSCULAR HEMOGLOBIN 28.2 pg (27.0-33.0); MEAN CORPUSCULAR HGB CONC 30.7 g/dl (32.0-36.5); MEAN CORPUSCULAR VOLUME 91.8 fl (80.0-96.0); MONO # 0.2 K/mm3 (0.0-0.8); MONO % 4.3 % (0.0-5.0); NEUTROPHILS # 2.1 K/mm3 (1.8-7.7); NEUTROPHILS % 46.3 % (36.0-66.0); PLATELET COUNT, AUTOMATED 174 k/mm3 (150-450); RED CELL DISTRIBUTION WIDTH 16.1 % (11.5-14.5); WHITE BLOOD COUNT 4.4 K/mm3 (4.0-10.0)
[2016-06-14 10:52] LABS: ALBUMIN 2.5 GM/DL (3.2-5.2); ALBUMIN/GLOBULIN RATIO 0.86 (1.00-1.93); BILIRUBIN,TOTAL 0.7 MG/DL (0.2-1.0); CREATININE FOR GFR 1.47 MG/DL (0.55-1.02); GLOMERULAR FILTRATION RATE 39.1 (>51); MAGNESIUM LEVEL 1.7 MG/DL (1.8-2.4); POTASSIUM SERUM 4.7 MEQ/L (3.5-5.1); TOTAL PROTEIN 5.4 GM/DL (6.4-8.2)
[2016-06-14] MEDS: PANTOPRAZOLE 20 MG TAB PO SCH (12:30)
[2016-06-14] MEDS: amLODIPine 10 MG TAB PO SCH (12:31)
[2016-06-14] MEDS: POTASSIUM CHLORIDE 10 MEQ SR TABLET PO SCH ×2 (12:31→20:29)
[2016-06-14] MEDS: MAGNESIUM OXIDE 400 MG TAB (MAG-OX) PO SCH (12:31)
[2016-06-14 14:00] VITALS: BP 113/66
--- NOTE | 2016-06-14 14:10 | IPNPDOC ---
Text Note Date of Service The patient was seen on 06/14/16 at 14:05. NOTE Subjective: Patient is a 55 year old female with PMHx of C1 esterase deficiency, hereditary angioedema, degenerative disc disease, HTN, Hep B & C, Hx of Left Breast CA (s/p mastectomy and chemo) who presented to the ER with complaints of bilateral lower abdominal pain for 2 weeks. She recently had a laparoscopic cholecystectomy with Dr. Perkins 04/2016. Patient notes that the pain was different than her general exacerbation of hereditary angioedema. She was admitted for possible bile leak. Patient was seen and examined at the bedside. She notes that her abdominal pain is still present. She has asked for more pain medications. Objective: Vitals: (See below) General: No acute distress, laying comfortably in bed HEENT: NC, AT, Trach in place CVS: RRR, +S1S2 Lungs: Fair air entry b/l, - w/r/r Abdomen: Soft, ND, Tenderness diffusely, +BSx4 Extremities: No edema, no calf tenderness Assessment and plan: 1. Abdominal pain - possibly 2/2 hepatobiliary etiology, possible exacerbation of angioedema, possibly 2/2 constipation - MRCP revealed: moderate dilation of intra/extra hepatic biliary tree; s/p ERCP with Dr. Parra 06/10 - s/p stent placement - Alkaline phosphatase trending down - will continue to follow - Amylase and Lipase within normal limits - XR abdomen 06/14: mildly prominent loop of small bowel in the left mid abdomen - absent gas within left colon - will c/w pain control with home medications; will start Dilaudid PO - c/w anti-spasmodic agent for bowel contractions - will try fleet enema 2. SARTHAK - likely pre-renal - 2/2 nausea & vomiting - Will start NS fluid hydration 3. Normocytic anemia, Chronic - Hg stable - will continue to follow 4. 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 Hx of breast CA - Bone scan - no compelling evidence of skeletal metastatic disease 6. Hx of Hepatitis B adn C - will follow up as an outpatient 7. HTN - BP well controlled - will c/w Amlodipine and Atenolol 8. Right adrenal mass, chronic - outpatient evaluation 9. Chronic pain - c/w home pain regimen 10. Depression and Anxiety - c/w Duloxetine and Clonazepam 11. GI prophylaxis - c/w protonix 12. DVT prophylaxis - c/w heparin VS,Fishbone, I+O VS, Fishbone, I+O Laboratory Tests 06/14/16 09:59 Calcium Level 8.0 L, Aspartate Amino Transf (AST/SGOT) 19, Alanine Aminotransferase (ALT/SGPT) 13, Alkaline Phosphatase 372 H, Total Bilirubin 0.7 , Total Protein 5.4 L, Albumin 2.5 L, Red Blood Count 3.04 L, Mean Corpuscular Volume 91.8, Mean Corpuscular Hemoglobin 28.2, Mean Corpuscular Hemoglobin Concent 30.7 L, Red Cell Distribution Width 16.1 H, Neutrophils (%) (Auto) 46.3 , Lymphocytes (%) (Auto) 45.2 H, Monocytes (%) (Auto) 4.3, Eosinophils (%) (Auto ) 1.7, Basophils (%) (Auto) 0.4, Neutrophils # (Auto) 2.1, Lymphocytes # (Auto) 2.1, Monocytes # (Auto) 0.2, Eosinophils # (Auto) 0.1, Basophils # (Auto) 0.0 Vital Signs Date Time Temp Pulse Resp B/P Pulse Ox O2 Delivery O2 Flow Rate FiO2 06/14/16 13:03 16 06/14/16 12:31 74 123/67 06/14/16 09:00 Room Air 06/14/16 06:00 98.0 95 06/10/16 19:33 100 I&O- Last 24 Hours up to 6 AM 06/14/16 06:00 Intake Total 660 ml Output Total 400 ml Balance 260 ml LUCIA NUNEZ MD Jun 14, 2016 14:10
[2016-06-14] MEDS ORDERED: FLEET ENEMA PR PRN (14:15)
[2016-06-14] MEDS: NS 1,000 ML IV SCH (15:17)
[2016-06-14] MEDS: MAG SULF 1GM/100ML (MAG RUN) 1 GM in APPROPRIATE DILUENT 1 EA IV SCH ×2 (15:17→16:18)
[2016-06-14] MEDS: DICYCLOMINE 10 MG CAP PO SCH ×2 (16:17→20:29)
[2016-06-14 20:07] VITALS: BP 124/58
[2016-06-14] MEDS: PRAMIPEXOLE 0.25 MG TAB PO SCH (20:29)
[2016-06-14 22:00] VITALS: BP 124/58
[2016-06-15] MEDS: oxyCODONE 5MG TAB PO PRN ×3 (00:02→10:30)
[2016-06-15] MEDS: NS 1,000 ML IV SCH (04:47)
[2016-06-15] MEDS: HEPARIN SOD (PORCINE) 5000 UNITS/ML VIAL SC SCH ×3 (04:48→21:34)
[2016-06-15] MEDS: HYDROmorphone 2 MG TAB PO PRN ×2 (04:48→15:50)
[2016-06-15] MEDS: metroNIDAZOLE (FLAGYL) 500 MG TAB PO SCH ×3 (04:48→21:36)
[2016-06-15] MEDS: CIPROFLOXACIN 500 MG TAB PO SCH ×2 (04:48→17:37)
[2016-06-15 06:00] VITALS: BP 127/68
[2016-06-15 07:49] LABS: BASO % 0.5 % (0.0-1.0); EOS # 0.1 K/mm3 (0.0-0.50); EOS % 3.3 % (0.0-3.0); LARGE UNSTAINED CELL # 0.1 K/mm3 (0.0-0.4); LARGE UNSTAINED CELL % 3.4 % (0.0-4.0); LYMPH # 1.7 K/mm3 (1.5-4.5); MEAN CORPUSCULAR HEMOGLOBIN 28.7 pg (27.0-33.0); MEAN CORPUSCULAR HGB CONC 32.3 g/dl (32.0-36.5); MEAN CORPUSCULAR VOLUME 88.8 fl (80.0-96.0); MONO # 0.1 K/mm3 (0.0-0.8); NEUTROPHILS # 1.7 K/mm3 (1.8-7.7); NEUTROPHILS % 44.8 % (36.0-66.0); PLATELET COUNT, AUTOMATED 150 k/mm3 (150-450); WHITE BLOOD COUNT 3.7 K/mm3 (4.0-10.0)
[2016-06-15] MEDS: clonazePAM 1 MG TAB PO SCH ×3 (08:11→21:34)
[2016-06-15] MEDS: oxyCODONE 40 MG CR TAB PO SCH ×2 (08:12→21:35)
[2016-06-15] MEDS: SODIUM CHLORIDE 0.9% INJ 10 ML SYR IV SCH (09:00)
[2016-06-15 09:31] LABS: ALBUMIN 2.7 GM/DL (3.2-5.2); ALBUMIN/GLOBULIN RATIO 0.87 (1.00-1.93); ALKALINE PHOSPHATASE 456 U/L (45-117); ALT/SGPT 16 U/L (12-78); ANION GAP 8 MEQ/L (8-16); AST/SGOT 30 U/L (15-37); BILIRUBIN,TOTAL 0.7 MG/DL (0.2-1.0); BLOOD UREA NITROGEN 15 MG/DL (7-18); CALCIUM LEVEL 7.9 MG/DL (8.5-10.1); CARBON DIOXIDE LEVEL 26 MEQ/L (21-32); CHLORIDE LEVEL 110 MEQ/L (98-107); CREATININE FOR GFR 0.88 MG/DL (0.55-1.02); GLOMERULAR FILTRATION RATE > 60.0 (>51); GLUCOSE, FASTING 80 MG/DL (70-105); POTASSIUM SERUM 4.6 MEQ/L (3.5-5.1); SODIUM LEVEL 144 MEQ/L (136-145); TOTAL PROTEIN 5.8 GM/DL (6.4-8.2)
[2016-06-15] MEDS: CALCIUM CARBONATE 500 MG CHEW U/D PO SCH ×2 (10:03→21:36)
[2016-06-15] MEDS: CETIRIZINE (ZyrTEC) 10 MG TAB PO SCH (10:04)
[2016-06-15] MEDS: ATENOLOL 50 MG TAB PO SCH ×2 (10:04→21:36)
[2016-06-15] MEDS: FERROUS SULFATE 325MG TAB PO SCH (10:04)
[2016-06-15] MEDS: MECLIZINE 25 MG TABLET PO SCH ×3 (10:04→21:35)
[2016-06-15] MEDS: DICYCLOMINE 10 MG CAP PO SCH ×3 (10:04→21:35)
[2016-06-15] MEDS: SENOKOT S TAB PO SCH ×2 (10:04→21:35)
[2016-06-15] MEDS: SODIUM CHLORIDE 0.9% INJ 10 ML SYR IV PRN (10:05)
[2016-06-15] MEDS: MIRALAX *UNIT DOSE* 17GM PACKET PO SCH ×2 (10:05→21:34)
--- NOTE | 2016-06-15 10:17 | REP ---
Abdomen series: Two views. History: Question obstruction. Findings: Supine and erect views of the abdomen demonstrate a biliary stent catheter in the right upper quadrant adjacent to some surgical clips. There are air-fluid levels in mildly dilated loops of transverse colon in the upper abdomen. A few air filled loops of nondilated small bowel are seen in the lower central abdomen. The appearance of the abdomen suggests ascites as before. Impression: Mildly dilated colonic loops. Question ascites. Biliary stent in place. Not significantly changed from the previous day's study. Signed by Adin Owens MD 06/15/2016 10:19 A
--- NOTE | 2016-06-15 12:30 | IPNPDOC ---
Text Note Date of Service The patient was seen on 06/15/16 at 12:27. NOTE Subjective: Patient is a 55 year old female with PMHx of C1 esterase deficiency, hereditary angioedema, degenerative disc disease, HTN, Hep B & C, Hx of Left Breast CA (s/p mastectomy and chemo) who presented to the ER with complaints of bilateral lower abdominal pain for 2 weeks. She recently had a laparoscopic cholecystectomy with Dr. Perkins 04/2016. Patient notes that the pain was different than her general exacerbation of hereditary angioedema. She was admitted for possible bile leak. Patient was seen and examined at the bedside. She notes improvement in abdominal pain, still present though. No nausea or vomiting. Will restart clear diet. Objective: Vitals: (See below) General: No acute distress, laying comfortably in bed HEENT: NC, AT, Trach in place CVS: RRR, +S1S2 Lungs: Fair air entry b/l, - w/r/r Abdomen: Soft, ND, Tenderness diffusely, +BSx4 Extremities: No edema, no calf tenderness Assessment and plan: 1. Abdominal pain - possibly 2/2 hepatobiliary etiology, possible exacerbation of angioedema, possibly 2/2 constipation - MRCP revealed: moderate dilation of intra/extra hepatic biliary tree; s/p ERCP with Dr. Parra 06/10 - s/p stent placement - Alkaline phosphatase trending down - will continue to follow - Amylase and Lipase within normal limits - XR abdomen 06/14: mildly prominent loop of small bowel in the left mid abdomen - absent gas within left colon - Repeat XR abdomen 06/15 - unchanged - will c/w pain control with home medications and additional Dilaudid PO - c/w anti-spasmodic agent for bowel contractions - Advance diet from NPO to liquid clears - Advised nursing and patient to try fleet enema 2. s/p SARTHAK - likely pre-renal - 2/2 nausea & vomiting - s/p IV fluid hydration with NS 3. Normocytic anemia, Chronic - Hg lower than baseline - Will repeat CBC at 12 PM - will continue to follow 4. 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 Hx of breast CA - Bone scan - no compelling evidence of skeletal metastatic disease 6. Hx of Hepatitis B adn C - will follow up as an outpatient 7. HTN - BP well controlled - will c/w Amlodipine and Atenolol 8. Right adrenal mass, chronic - outpatient evaluation 9. Chronic pain - c/w home pain regimen 10. Depression and Anxiety - c/w Duloxetine and Clonazepam 11. GI prophylaxis - c/w protonix 12. DVT prophylaxis - c/w heparin VS,Fishbone, I+O VS, Fishbone, I+O Laboratory Tests 06/15/16 05:31 Calcium Level 7.9 L, Aspartate Amino Transf (AST/SGOT) 30, Alanine Aminotransferase (ALT/SGPT) 16, Alkaline Phosphatase 456 H, Total Bilirubin 0.7 , Total Protein 5.8 L, Albumin 2.7 L, Red Blood Count 2.69 L, Mean Corpuscular Volume 88.8, Mean Corpuscular Hemoglobin 28.7, Mean Corpuscular Hemoglobin Concent 32.3, Red Cell Distribution Width 15.0 H, Neutrophils (%) (Auto) 44.8, Lymphocytes (%) (Auto) 45.0 H, Monocytes (%) (Auto) 3.0, Eosinophils (%) (Auto) 3.3 H, Basophils (%) (Auto) 0.5, Neutrophils # (Auto) 1.7 L, Lymphocytes # (Auto ) 1.7, Monocytes # (Auto) 0.1, Eosinophils # (Auto) 0.1, Basophils # (Auto) 0.0 Vital Signs Date Time Temp Pulse Resp B/P Pulse Ox O2 Delivery O2 Flow Rate FiO2 06/15/16 11:00 18 06/15/16 10:41 Room Air 06/15/16 10:04 64 127/68 06/15/16 06:00 97.6 96 06/10/16 19:33 100 I&O- Last 24 Hours up to 6 AM 06/15/16 06:00 Intake Total 1446 ml Output Total 950 ml Balance 496 ml LUCIA NUNEZ MD Jun 15, 2016 12:30
[2016-06-15 12:51] LABS: BASO % 0.6 % (0.0-1.0); EOS # 0.1 K/mm3 (0.0-0.50); EOS % 2.3 % (0.0-3.0); LARGE UNSTAINED CELL # 0.1 K/mm3 (0.0-0.4); LARGE UNSTAINED CELL % 2.5 % (0.0-4.0); LYMPH # 1.7 K/mm3 (1.5-4.5); LYMPH % 44.4 % (24.0-44.0); MEAN CORPUSCULAR HEMOGLOBIN 28.5 pg (27.0-33.0); MEAN CORPUSCULAR HGB CONC 32.3 g/dl (32.0-36.5); MEAN CORPUSCULAR VOLUME 88.2 fl (80.0-96.0); MONO # 0.2 K/mm3 (0.0-0.8); MONO % 3.9 % (0.0-5.0); NEUTROPHILS # 1.8 K/mm3 (1.8-7.7); NEUTROPHILS % 46.1 % (36.0-66.0); PLATELET COUNT, AUTOMATED 174 k/mm3 (150-450); RED CELL DISTRIBUTION WIDTH 14.8 % (11.5-14.5); WHITE BLOOD COUNT 3.9 K/mm3 (4.0-10.0)
[2016-06-15] MEDS: amLODIPine 10 MG TAB PO SCH (12:52)
[2016-06-15] MEDS: POTASSIUM CHLORIDE 10 MEQ SR TABLET PO SCH ×2 (12:53→21:34)
[2016-06-15] MEDS: PANTOPRAZOLE 20 MG TAB PO SCH (12:53)
[2016-06-15 14:00] VITALS: BP 132/74
[2016-06-15] MEDS: ONDANSETRON 4MG/2ML VIAL (J2405) IV PRN (21:34)
[2016-06-15] MEDS: PRAMIPEXOLE 0.25 MG TAB PO SCH (21:36)
[2016-06-15 22:00] VITALS: BP 97/54
[2016-06-16] MEDS: oxyCODONE 5MG TAB PO PRN ×2 (00:20→14:39)
[2016-06-16] MEDS: HYDROmorphone 2 MG TAB PO PRN ×2 (02:02→11:00)
[2016-06-16] MEDS: CIPROFLOXACIN 500 MG TAB PO SCH ×2 (05:40→18:06)
[2016-06-16] MEDS: HEPARIN SOD (PORCINE) 5000 UNITS/ML VIAL SC SCH ×3 (05:40→21:20)
[2016-06-16] MEDS: metroNIDAZOLE (FLAGYL) 500 MG TAB PO SCH ×3 (05:40→21:21)
[2016-06-16 06:00] VITALS: BP 113/70
[2016-06-16 06:13] LABS: BASO % 0.5 % (0.0-1.0); EOS # 0.1 K/mm3 (0.0-0.50); EOS % 2.2 % (0.0-3.0); LARGE UNSTAINED CELL # 0.1 K/mm3 (0.0-0.4); LARGE UNSTAINED CELL % 1.8 % (0.0-4.0); LYMPH # 1.2 K/mm3 (1.5-4.5); LYMPH % 33.8 % (24.0-44.0); MEAN CORPUSCULAR HEMOGLOBIN 28.5 pg (27.0-33.0); MEAN CORPUSCULAR HGB CONC 32.1 g/dl (32.0-36.5); MEAN CORPUSCULAR VOLUME 88.6 fl (80.0-96.0); MONO # 0.2 K/mm3 (0.0-0.8); MONO % 4.8 % (0.0-5.0); NEUTROPHILS % 56.9 % (36.0-66.0); PLATELET COUNT, AUTOMATED 159 k/mm3 (150-450); WHITE BLOOD COUNT 3.5 K/mm3 (4.0-10.0)
[2016-06-16 07:16] LABS: ALBUMIN 2.7 GM/DL (3.2-5.2); ALBUMIN/GLOBULIN RATIO 0.79 (1.00-1.93); ALKALINE PHOSPHATASE 450 U/L (45-117); ALT/SGPT 15 U/L (12-78); ANION GAP 7 MEQ/L (8-16); AST/SGOT 28 U/L (15-37); BILIRUBIN,TOTAL 0.7 MG/DL (0.2-1.0); BLOOD UREA NITROGEN 10 MG/DL (7-18); CALCIUM LEVEL 7.8 MG/DL (8.5-10.1); CARBON DIOXIDE LEVEL 27 MEQ/L (21-32); CHLORIDE LEVEL 111 MEQ/L (98-107); CREATININE FOR GFR 0.79 MG/DL (0.55-1.02); GLOMERULAR FILTRATION RATE > 60.0 (>51); GLUCOSE, FASTING 100 MG/DL (70-105); MAGNESIUM LEVEL 1.8 MG/DL (1.8-2.4); POTASSIUM SERUM 4.3 MEQ/L (3.5-5.1); SODIUM LEVEL 145 MEQ/L (136-145); TOTAL PROTEIN 6.1 GM/DL (6.4-8.2)
[2016-06-16] MEDS: CALCIUM CARBONATE 500 MG CHEW U/D PO SCH ×2 (08:02→21:20)
[2016-06-16] MEDS: CETIRIZINE (ZyrTEC) 10 MG TAB PO SCH (08:02)
[2016-06-16] MEDS: FERROUS SULFATE 325MG TAB PO SCH (08:02)
[2016-06-16] MEDS: MIRALAX *UNIT DOSE* 17GM PACKET PO SCH ×2 (08:02→21:20)
[2016-06-16] MEDS: DICYCLOMINE 10 MG CAP PO SCH ×3 (08:03→21:20)
[2016-06-16] MEDS: MECLIZINE 25 MG TABLET PO SCH ×3 (08:03→21:20)
[2016-06-16] MEDS: SENOKOT S TAB PO SCH ×2 (08:03→21:21)
[2016-06-16] MEDS: clonazePAM 1 MG TAB PO SCH ×3 (08:04→21:20)
[2016-06-16] MEDS: oxyCODONE 40 MG CR TAB PO SCH ×2 (08:04→21:21)
[2016-06-16] MEDS: ATENOLOL 50 MG TAB PO SCH ×2 (08:13→21:21)
[2016-06-16] MEDS: SODIUM CHLORIDE 0.9% INJ 10 ML SYR IV SCH (08:14)
[2016-06-16] MEDS: BISACODYL 10 MG SUPP PR PRN (11:01)
[2016-06-16] MEDS: PANTOPRAZOLE 20 MG TAB PO SCH (12:51)
[2016-06-16] MEDS: amLODIPine 10 MG TAB PO SCH (12:51)
[2016-06-16] MEDS: POTASSIUM CHLORIDE 10 MEQ SR TABLET PO SCH ×2 (12:52→21:20)
[2016-06-16 14:00] VITALS: BP 134/80
--- NOTE | 2016-06-16 16:07 | IPNPDOC ---
Text Note Date of Service The patient was seen on 06/16/16 at 16:04. NOTE Subjective: She states her abdominal pain is much improved. Has not had a bowel movement yesterday or today. Objective: Vitals: (see below) General: No acute distress, laying comfortably in bed. HEENT: Moist mucous membranes. Neck: No JVD or lymphadenopathy. Chronic trach intact no bleeding. Cardiac: RRR, No murmurs Pulm: Clear to auscultation b/l. No wheezing, rhonchi Abd: Nontender/ND + BS Ext: No edema or cyanosis Labs (see below) Images: CT abd/pelvis 06/07/16 Impression: 1 Free fluid in the upper abdomen extending along the pericolic gutters into the pelvis as described above. Differential diagnosis includes bile leak as well as changes related to postoperative infectious/inflammatory process. There is no evidence for free air. There is no evidence for discrete drainable collection by current noncontrast evaluation. 2. Stable right adrenal mass. Assessment/Plan 1. Abdominal pain- multifactorial. Recent cholecystectomy, with free fluid noted in the upper abdomen, although these may represents inflammatory changes from the recent surgery versus a biliary leak. HIDA scan was ordered and pending. GI/Surgery consultation appreciated. Moderate dilation of intra-/ extrahepatic biliary tree status post ERCP by Dr. Lopez on 06/10 status post stent placement. Alkaline phosphatase trending down. 2. Chronic anemia- no acute need for transfusion this time. Follow-up occult stool and iron studies. 3. Hereditary angioedema with C1 esterase deficiency- patient does use Berinert as needed. She states that her typical flares involve the lower quadrants of her abdomen as well as her lips/throat, for which she has a chronic trach. 4. History of hepatitis B and C - will need outpatient ID follow-up 5. Hypertension controlled continue current meds. 6. Chronic stable right adrenal mass follow-up outpatient 7. Chronic pain- resume OxyContin 40 mg every 12 hours, and oxycodone 30 mg every 6 hours as needed, which is the patient's home medications prescribed by her pain management physician. These doses have been verified by [facility] in [facility]. 8. Depression- continue home meds 9. Constipation- likely secondary to opiates. Dulcolax and Fleet enema added. DVT prophy: Heparin subcutaneous Plan to discharge in the next 24-48 hours. VS,Fishbone, I+O VS, Fishbone, I+O Laboratory Tests 06/16/16 05:43 Calcium Level 7.8 L, Aspartate Amino Transf (AST/SGOT) 28, Alanine Aminotransferase (ALT/SGPT) 15, Alkaline Phosphatase 450 H, Total Bilirubin 0.7 , Total Protein 6.1 L, Albumin 2.7 L, Red Blood Count 2.81 L, Mean Corpuscular Volume 88.6, Mean Corpuscular Hemoglobin 28.5, Mean Corpuscular Hemoglobin Concent 32.1, Red Cell Distribution Width 15.0 H, Neutrophils (%) (Auto) 56.9, Lymphocytes (%) (Auto) 33.8, Monocytes (%) (Auto) 4.8, Eosinophils (%) (Auto) 2.2, Basophils (%) (Auto) 0.5, Neutrophils # (Auto) 2.0, Lymphocytes # (Auto) 1.2 L, Monocytes # (Auto) 0.2, Eosinophils # (Auto) 0.1, Basophils # (Auto) 0.0 Vital Signs Date Time Temp Pulse Resp B/P Pulse Ox O2 Delivery O2 Flow Rate FiO2 06/16/16 15:21 18 06/16/16 12:51 69 110/48 06/16/16 11:00 Room Air 06/16/16 06:00 98.0 95 06/10/16 19:33 100 I&O- Last 24 Hours up to 6 AM 06/16/16 06:00 Intake Total 360 ml Output Total 1350 ml Balance -990 ml DENNIS PALAFOX MD Jun 16, 2016 16:07
[2016-06-16] MEDS: PRAMIPEXOLE 0.25 MG TAB PO SCH (21:21)
[2016-06-16 22:11] VITALS: BP 135/82
[2016-06-17] MEDS: HYDROmorphone 2 MG TAB PO PRN ×3 (00:20→23:47)
[2016-06-17] MEDS: oxyCODONE 5MG TAB PO PRN ×4 (04:39→23:47)
[2016-06-17] MEDS: CIPROFLOXACIN 500 MG TAB PO SCH ×2 (05:16→17:22)
[2016-06-17] MEDS: HEPARIN SOD (PORCINE) 5000 UNITS/ML VIAL SC SCH ×3 (05:16→22:15)
[2016-06-17] MEDS: metroNIDAZOLE (FLAGYL) 500 MG TAB PO SCH ×3 (05:16→22:16)
[2016-06-17 06:00] LABS: BASO % 0.5 % (0.0-1.0); EOS # 0.1 K/mm3 (0.0-0.50); EOS % 1.6 % (0.0-3.0); LARGE UNSTAINED CELL # 0.1 K/mm3 (0.0-0.4); LYMPH # 1.4 K/mm3 (1.5-4.5); LYMPH % 39.4 % (24.0-44.0); MEAN CORPUSCULAR HEMOGLOBIN 28.6 pg (27.0-33.0); MEAN CORPUSCULAR HGB CONC 32.6 g/dl (32.0-36.5); MEAN CORPUSCULAR VOLUME 87.9 fl (80.0-96.0); MONO # 0.1 K/mm3 (0.0-0.8); MONO % 3.9 % (0.0-5.0); NEUTROPHILS # 1.8 K/mm3 (1.8-7.7); NEUTROPHILS % 52.6 % (36.0-66.0); PLATELET COUNT, AUTOMATED 138 k/mm3 (150-450); WHITE BLOOD COUNT 3.4 K/mm3 (4.0-10.0)
[2016-06-17 06:04] VITALS: BP 118/65
[2016-06-17 07:04] LABS: ALBUMIN 2.5 GM/DL (3.2-5.2); ALBUMIN/GLOBULIN RATIO 0.74 (1.00-1.93); ALKALINE PHOSPHATASE 567 U/L (45-117); ALT/SGPT 13 U/L (12-78); ANION GAP 7 MEQ/L (8-16); AST/SGOT 25 U/L (15-37); BILIRUBIN,TOTAL 0.5 MG/DL (0.2-1.0); BLOOD UREA NITROGEN 9 MG/DL (7-18); CALCIUM LEVEL 7.8 MG/DL (8.5-10.1); CARBON DIOXIDE LEVEL 27 MEQ/L (21-32); CHLORIDE LEVEL 111 MEQ/L (98-107); CREATININE FOR GFR 0.68 MG/DL (0.55-1.02); GLOMERULAR FILTRATION RATE > 60.0 (>51); GLUCOSE, FASTING 104 MG/DL (70-105); MAGNESIUM LEVEL 1.7 MG/DL (1.8-2.4); POTASSIUM SERUM 4.1 MEQ/L (3.5-5.1); SODIUM LEVEL 145 MEQ/L (136-145); TOTAL PROTEIN 5.9 GM/DL (6.4-8.2)
[2016-06-17] MEDS ORDERED: MAG SULF 1GM/100ML (MAG RUN) 1 GM in APPROPRIATE DILUENT 1 EA IV ONE (08:00)
[2016-06-17] MEDS: CALCIUM CARBONATE 500 MG CHEW U/D PO SCH ×2 (09:23→22:15)
[2016-06-17] MEDS: SODIUM CHLORIDE 0.9% INJ 10 ML SYR IV SCH (09:24)
[2016-06-17] MEDS: SENOKOT S TAB PO SCH ×2 (09:24→22:17)
[2016-06-17] MEDS: FERROUS SULFATE 325MG TAB PO SCH (09:24)
[2016-06-17] MEDS: oxyCODONE 40 MG CR TAB PO SCH ×2 (09:24→22:16)
[2016-06-17] MEDS: DICYCLOMINE 10 MG CAP PO SCH ×3 (09:25→22:15)
[2016-06-17] MEDS: ATENOLOL 50 MG TAB PO SCH ×2 (09:25→22:16)
[2016-06-17] MEDS: CETIRIZINE (ZyrTEC) 10 MG TAB PO SCH (09:25)
[2016-06-17] MEDS: MECLIZINE 25 MG TABLET PO SCH ×3 (09:26→22:17)
[2016-06-17] MEDS: clonazePAM 1 MG TAB PO SCH ×3 (09:26→22:17)
[2016-06-17] MEDS: MIRALAX *UNIT DOSE* 17GM PACKET PO SCH ×2 (09:26→22:17)
[2016-06-17] MEDS: PANTOPRAZOLE 20 MG TAB PO SCH (11:20)
[2016-06-17] MEDS: amLODIPine 10 MG TAB PO SCH (11:20)
[2016-06-17] MEDS: POTASSIUM CHLORIDE 10 MEQ SR TABLET PO SCH ×2 (11:20→22:17)
[2016-06-17 12:46] LABS: BASO % 0.9 % (0.0-1.0); EOS % 1.5 % (0.0-3.0); LARGE UNSTAINED CELL # 0.1 K/mm3 (0.0-0.4); LARGE UNSTAINED CELL % 1.7 % (0.0-4.0); LYMPH # 1.8 K/mm3 (1.5-4.5); MEAN CORPUSCULAR HGB CONC 31.7 g/dl (32.0-36.5); MEAN CORPUSCULAR VOLUME 88.3 fl (80.0-96.0); MONO # 0.1 K/mm3 (0.0-0.8); MONO % 3.9 % (0.0-5.0); NEUTROPHILS # 1.5 K/mm3 (1.8-7.7); PLATELET COUNT, AUTOMATED 141 k/mm3 (150-450); RED CELL DISTRIBUTION WIDTH 16.1 % (11.5-14.5); WHITE BLOOD COUNT 3.5 K/mm3 (4.0-10.0)
[2016-06-17 14:00] VITALS: BP 126/73
--- NOTE | 2016-06-17 14:56 | IPNPDOC ---
Text Note Date of Service The patient was seen on 06/17/16 at 14:55. NOTE Subjective: She states her abdominal pain is much improved. Had multiple bowel movements yesterday. Objective: Vitals: (see below) General: No acute distress, laying comfortably in bed. HEENT: Moist mucous membranes. Neck: No JVD or lymphadenopathy. Chronic trach intact no bleeding. Cardiac: RRR, No murmurs Pulm: Clear to auscultation b/l. No wheezing, rhonchi Abd: Nontender/ND + BS Ext: No edema or cyanosis Labs (see below) Images: CT abd/pelvis 06/07/16 Impression: 1 Free fluid in the upper abdomen extending along the pericolic gutters into the pelvis as described above. Differential diagnosis includes bile leak as well as changes related to postoperative infectious/inflammatory process. There is no evidence for free air. There is no evidence for discrete drainable collection by current noncontrast evaluation. 2. Stable right adrenal mass. Assessment/Plan 1. Abdominal pain- multifactorial. Recent cholecystectomy, with free fluid noted in the upper abdomen, although these may represents inflammatory changes from the recent surgery versus a biliary leak. HIDA scan was ordered and pending. GI/Surgery consultation appreciated. Moderate dilation of intra-/ extrahepatic biliary tree status post ERCP by Dr. Lopez on 06/10 status post stent placement. Alkaline phosphatase has started to trend up despite patient stating that her abdominal pain has improved. Will recheck out to GI regarding disposition with an elevated alkaline phosphatase. 2. Chronic anemia- no acute need for transfusion this time. Fecal occult blood negative. Will transfuse 1 unit PRBC. It appears the patient has chronic pancytopenia for which she'll need outpatient oncology follow-up. Does have an elevated reticulocyte count. 3. Hereditary angioedema with C1 esterase deficiency- patient does use Berinert as needed. She states that her typical flares involve the lower quadrants of her abdomen as well as her lips/throat, for which she has a chronic trach. 4. History of hepatitis B and C - will need outpatient ID follow-up 5. Hypertension controlled continue current meds. 6. Chronic stable right adrenal mass follow-up outpatient 7. Chronic pain- resume OxyContin 40 mg every 12 hours, and oxycodone 30 mg every 6 hours as needed, which is the patient's home medications prescribed by her pain management physician. These doses have been verified by [facility] in [facility]. 8. Depression- continue home meds 9. Constipation- likely secondary to opiates. Dulcolax and Fleet enema added. DVT prophy: Heparin subcutaneous Plan to discharge in the next 24-48 hours. VS,Fishbone, I+O VS, Fishbone, I+O Laboratory Tests 06/17/16 05:18 Calcium Level 7.8 L, Aspartate Amino Transf (AST/SGOT) 25, Alanine Aminotransferase (ALT/SGPT) 13, Alkaline Phosphatase 567 H, Total Bilirubin 0.5 , Total Protein 5.9 L, Albumin 2.5 L, Red Blood Count 2.62 L, Mean Corpuscular Volume 87.9, Mean Corpuscular Hemoglobin 28.6, Mean Corpuscular Hemoglobin Concent 32.6, Red Cell Distribution Width 15.0 H, Neutrophils (%) (Auto) 52.6, Lymphocytes (%) (Auto) 39.4, Monocytes (%) (Auto) 3.9, Eosinophils (%) (Auto) 1.6, Basophils (%) (Auto) 0.5, Neutrophils # (Auto) 1.8, Lymphocytes # (Auto) 1.4 L, Monocytes # (Auto) 0.1, Eosinophils # (Auto) 0.1, Basophils # (Auto) 0.0 06/17/16 12:34 Red Blood Count 2.66 L, Mean Corpuscular Volume 88.3, Mean Corpuscular Hemoglobin 28.0, Mean Corpuscular Hemoglobin Concent 31.7 L, Red Cell Distribution Width 16.1 H, Neutrophils (%) (Auto) 43.0, Lymphocytes (%) (Auto) 49.0 H, Monocytes (%) (Auto) 3.9, Eosinophils (%) (Auto) 1.5, Basophils (%) ( Auto) 0.9, Neutrophils # (Auto) 1.5 L, Lymphocytes # (Auto) 1.8, Monocytes # ( Auto) 0.1, Eosinophils # (Auto) 0.0, Basophils # (Auto) 0.0 Vital Signs Date Time Temp Pulse Resp B/P Pulse Ox O2 Delivery O2 Flow Rate FiO2 06/17/16 11:51 18 06/17/16 11:20 71 130/68 06/17/16 06:04 99.5 98 Room Air I&O- Last 24 Hours up to 6 AM 06/17/16 06:00 Intake Total 1380 ml Output Total 1151 ml Balance 229 ml DENNIS PALAFOX MD Jun 17, 2016 14:56
[2016-06-17] MEDS: SODIUM CHLORIDE 0.9% INJ 10 ML SYR IV PRN (19:51)
[2016-06-17 20:22] LABS: BASO % 0.2 % (0.0-1.0); EOS % 1.5 % (0.0-3.0); LARGE UNSTAINED CELL # 0.1 K/mm3 (0.0-0.4); LARGE UNSTAINED CELL % 1.8 % (0.0-4.0); LYMPH # 1.5 K/mm3 (1.5-4.5); LYMPH % 43.5 % (24.0-44.0); MEAN CORPUSCULAR HEMOGLOBIN 29.2 pg (27.0-33.0); MEAN CORPUSCULAR HGB CONC 33.1 g/dl (32.0-36.5); MEAN CORPUSCULAR VOLUME 88.2 fl (80.0-96.0); MONO # 0.1 K/mm3 (0.0-0.8); MONO % 3.9 % (0.0-5.0); NEUTROPHILS # 1.7 K/mm3 (1.8-7.7); NEUTROPHILS % 49.1 % (36.0-66.0); PLATELET COUNT, AUTOMATED 153 k/mm3 (150-450); RED CELL DISTRIBUTION WIDTH 14.9 % (11.5-14.5); WHITE BLOOD COUNT 3.4 K/mm3 (4.0-10.0)
[2016-06-17 22:00] VITALS: BP 122/72
[2016-06-17] MEDS: PRAMIPEXOLE 0.25 MG TAB PO SCH (22:15)
[2016-06-18] MEDS: SODIUM CHLORIDE 0.9% INJ 10 ML SYR IV PRN (05:18)
[2016-06-18 05:57] LABS: BASO % 0.7 % (0.0-1.0); EOS # 0.1 K/mm3 (0.0-0.50); EOS % 2.6 % (0.0-3.0); LARGE UNSTAINED CELL # 0.1 K/mm3 (0.0-0.4); LARGE UNSTAINED CELL % 2.1 % (0.0-4.0); LYMPH # 1.5 K/mm3 (1.5-4.5); LYMPH % 36.9 % (24.0-44.0); MEAN CORPUSCULAR HEMOGLOBIN 28.8 pg (27.0-33.0); MEAN CORPUSCULAR HGB CONC 31.8 g/dl (32.0-36.5); MEAN CORPUSCULAR VOLUME 90.4 fl (80.0-96.0); MONO # 0.2 K/mm3 (0.0-0.8); MONO % 4.1 % (0.0-5.0); NEUTROPHILS % 53.5 % (36.0-66.0); PLATELET COUNT, AUTOMATED 167 k/mm3 (150-450); RED CELL DISTRIBUTION WIDTH 15.9 % (11.5-14.5); WHITE BLOOD COUNT 3.8 K/mm3 (4.0-10.0)
[2016-06-18 06:00] VITALS: BP 103/64
[2016-06-18] MEDS: HEPARIN SOD (PORCINE) 5000 UNITS/ML VIAL SC SCH ×3 (06:00→21:53)
[2016-06-18] MEDS: metroNIDAZOLE (FLAGYL) 500 MG TAB PO SCH ×3 (06:15→21:54)
[2016-06-18] MEDS: CIPROFLOXACIN 500 MG TAB PO SCH ×2 (06:15→18:00)
[2016-06-18] MEDS: HYDROmorphone 2 MG TAB PO PRN (06:17)
[2016-06-18 06:40] LABS: ALBUMIN 2.6 GM/DL (3.2-5.2); ALBUMIN/GLOBULIN RATIO 0.84 (1.00-1.93); ALKALINE PHOSPHATASE 481 U/L (45-117); ALT/SGPT 13 U/L (12-78); ANION GAP 8 MEQ/L (8-16); AST/SGOT 17 U/L (15-37); BILIRUBIN,TOTAL 0.5 MG/DL (0.2-1.0); BLOOD UREA NITROGEN 11 MG/DL (7-18); CALCIUM LEVEL 7.8 MG/DL (8.5-10.1); CARBON DIOXIDE LEVEL 26 MEQ/L (21-32); CHLORIDE LEVEL 112 MEQ/L (98-107); CREATININE FOR GFR 0.61 MG/DL (0.55-1.02); GLOMERULAR FILTRATION RATE > 60.0 (>51); GLUCOSE, FASTING 101 MG/DL (70-105); MAGNESIUM LEVEL 1.8 MG/DL (1.8-2.4); POTASSIUM SERUM 4.1 MEQ/L (3.5-5.1); SODIUM LEVEL 146 MEQ/L (136-145); TOTAL PROTEIN 5.7 GM/DL (6.4-8.2)
[2016-06-18] MEDS: MIRALAX *UNIT DOSE* 17GM PACKET PO SCH ×2 (08:51→21:52)
[2016-06-18] MEDS: DICYCLOMINE 10 MG CAP PO SCH ×3 (08:51→21:54)
[2016-06-18] MEDS: CALCIUM CARBONATE 500 MG CHEW U/D PO SCH ×2 (08:52→21:53)
[2016-06-18] MEDS: clonazePAM 1 MG TAB PO SCH ×3 (08:52→21:53)
[2016-06-18] MEDS: ATENOLOL 50 MG TAB PO SCH ×2 (08:52→21:53)
[2016-06-18] MEDS: SENOKOT S TAB PO SCH ×2 (08:53→21:54)
[2016-06-18] MEDS: FERROUS SULFATE 325MG TAB PO SCH (08:53)
[2016-06-18] MEDS: MECLIZINE 25 MG TABLET PO SCH ×3 (08:53→21:54)
[2016-06-18] MEDS: CETIRIZINE (ZyrTEC) 10 MG TAB PO SCH (08:53)
[2016-06-18] MEDS: oxyCODONE 40 MG CR TAB PO SCH ×2 (08:53→21:54)
[2016-06-18] MEDS: SODIUM CHLORIDE 0.9% INJ 10 ML SYR IV SCH (09:00)
[2016-06-18] MEDS: POTASSIUM CHLORIDE 10 MEQ SR TABLET PO SCH ×2 (12:09→21:54)
[2016-06-18] MEDS: PANTOPRAZOLE 20 MG TAB PO SCH (12:10)
[2016-06-18] MEDS: amLODIPine 10 MG TAB PO SCH (12:10)
[2016-06-18] MEDS: oxyCODONE 5MG TAB PO PRN (12:11)
[2016-06-18 14:00] VITALS: BP 136/63
--- NOTE | 2016-06-18 14:52 | IPNPDOC ---
Text Note Date of Service The patient was seen on 06/18/16 at 14:51. NOTE Subjective: Abdominal pain improved. No acute changes overnight. Objective: Vitals: (see below) General: No acute distress, laying comfortably in bed. HEENT: Moist mucous membranes. Neck: No JVD or lymphadenopathy. Chronic trach intact no bleeding. Cardiac: RRR, No murmurs Pulm: Clear to auscultation b/l. No wheezing, rhonchi Abd: Mild diffuse tenderness. No rebound guarding or rigidity./ND + BS Ext: No edema or cyanosis Labs (see below) Images: CT abd/pelvis 06/07/16 Impression: 1 Free fluid in the upper abdomen extending along the pericolic gutters into the pelvis as described above. Differential diagnosis includes bile leak as well as changes related to postoperative infectious/inflammatory process. There is no evidence for free air. There is no evidence for discrete drainable collection by current noncontrast evaluation. 2. Stable right adrenal mass. Assessment/Plan 1. Abdominal pain- multifactorial. Recent cholecystectomy, with free fluid noted in the upper abdomen, although these may represents inflammatory changes from the recent surgery versus a biliary leak. HIDA scan was ordered and pending. GI/Surgery consultation appreciated. Moderate dilation of intra-/ extrahepatic biliary tree status post ERCP by Dr. Lopez on 06/10 status post stent placement. Will be having a paracentesis today per GI recommendations. Alkaline phosphatase is plateauing. 2. Chronic anemia- no acute need for transfusion this time. Fecal occult blood negative. Will transfuse 1 unit PRBC. It appears the patient has chronic pancytopenia for which she'll need outpatient oncology follow-up. Does have an elevated reticulocyte count. 3. Hereditary angioedema with C1 esterase deficiency- patient does use Berinert as needed. She states that her typical flares involve the lower quadrants of her abdomen as well as her lips/throat, for which she has a chronic trach. 4. History of hepatitis B and C - will need outpatient ID follow-up 5. Hypertension controlled continue current meds. 6. Chronic stable right adrenal mass follow-up outpatient 7. Chronic pain- resume OxyContin 40 mg every 12 hours, and oxycodone 30 mg every 6 hours as needed, which is the patient's home medications prescribed by her pain management physician. These doses have been verified by [facility] in [facility]. 8. Depression- continue home meds 9. Constipation- likely secondary to opiates. Dulcolax and Fleet enema added. DVT prophy: Heparin subcutaneous Plan to discharge in the next 24-48 hours. VS,Fishbone, I+O VS, Fishbone, I+O Laboratory Tests 06/17/16 20:00 Red Blood Count 2.97 L, Mean Corpuscular Volume 88.2, Mean Corpuscular Hemoglobin 29.2, Mean Corpuscular Hemoglobin Concent 33.1, Red Cell Distribution Width 14.9 H, Neutrophils (%) (Auto) 49.1, Lymphocytes (%) (Auto) 43.5, Monocytes (%) (Auto) 3.9, Eosinophils (%) (Auto) 1.5, Basophils (%) (Auto ) 0.2, Neutrophils # (Auto) 1.7 L, Lymphocytes # (Auto) 1.5, Monocytes # (Auto) 0.1, Eosinophils # (Auto) 0.0, Basophils # (Auto) 0.0 06/18/16 05:24 Red Blood Count 3.06 L, Mean Corpuscular Volume 90.4, Mean Corpuscular Hemoglobin 28.8, Mean Corpuscular Hemoglobin Concent 31.8 L, Red Cell Distribution Width 15.9 H, Neutrophils (%) (Auto) 53.5, Lymphocytes (%) (Auto) 36.9, Monocytes (%) (Auto) 4.1, Eosinophils (%) (Auto) 2.6, Basophils (%) (Auto ) 0.7, Neutrophils # (Auto) 2.0, Lymphocytes # (Auto) 1.5, Monocytes # (Auto) 0.2, Eosinophils # (Auto) 0.1, Basophils # (Auto) 0.0, Calcium Level 7.8 L, Aspartate Amino Transf (AST/SGOT) 17, Alanine Aminotransferase (ALT/SGPT) 13, Alkaline Phosphatase 481 H, Total Bilirubin 0.5, Total Protein 5.7 L, Albumin 2.6 L Vital Signs Date Time Temp Pulse Resp B/P Pulse Ox O2 Delivery O2 Flow Rate FiO2 06/18/16 14:47 18 06/18/16 12:10 69 134/76 06/18/16 07:24 Room Air 06/18/16 06:00 98.9 94 I&O- Last 24 Hours up to 6 AM 06/18/16 06:00 Intake Total 1960 ml Output Total 1500 ml Balance 460 ml DENNIS PALAFOX MD Jun 18, 2016 14:52
--- NOTE | 2016-06-18 16:57 | REP ---
ULTRASOUND GUIDED PARACENTESIS: The procedure was performed under the direct supervision of Dr. Owens. The risks and benefits of the procedure were explained to the patient and informed consent was obtained. The largest pocket of fluid was localized in the right lower quadrant using ultrasound guidance. The skin was prepped and draped in a sterile fashion. 1% Lidocaine was used as a local anesthetic. Using ultrasound guidance an #8-Serbian lplou-ziah-bgen catheter was inserted using trocar technique. 50 mL of yellow fluid was withdrawn and sent to the lab. The patient tolerated the procedure well and there were no immediate complications. Reviewed by DIEUDONNE Taylor 06/19/2016 10:07 AEdited and Signed by Adin Owens MD 06/19/2016 10:41 A
[2016-06-18 17:28] LABS: LDH, BODY FLUID 123 U/L (NOT ESTABLISHED); SOURCE, BODY FLUID LIPASE ASCITES; TOTAL PROTEIN, BODY FLUID 3.7 G/DL (NOT ESTABLISHED)
[2016-06-18 17:48] LABS: RBC ASCITES FLUID < 10 (<10mm3 cells/uL); TNC ASCITES FLUID 1484 cells/uL (0-20)
[2016-06-18 17:49] LABS: BF DIFF IF INDICATED? YES (NO)
[2016-06-18 20:10] LABS: CC BF DIFF EXAM CYTOCENTRIFUGE
[2016-06-18] MEDS: PRAMIPEXOLE 0.25 MG TAB PO SCH (21:54)
[2016-06-18 22:00] VITALS: BP 125/74
[2016-06-19] MEDS: HYDROmorphone 2 MG TAB PO PRN ×2 (03:12→12:25)
[2016-06-19 06:00] VITALS: BP 122/72
[2016-06-19] MEDS: CIPROFLOXACIN 500 MG TAB PO SCH ×2 (06:15→17:12)
[2016-06-19] MEDS: HEPARIN SOD (PORCINE) 5000 UNITS/ML VIAL SC SCH ×2 (06:15→17:13)
[2016-06-19] MEDS: metroNIDAZOLE (FLAGYL) 500 MG TAB PO SCH ×2 (06:15→17:12)
[2016-06-19 10:12] LABS: BASO % 0.9 % (0.0-1.0); EOS # 0.1 K/mm3 (0.0-0.50); EOS % 2.5 % (0.0-3.0); LARGE UNSTAINED CELL # 0.1 K/mm3 (0.0-0.4); LARGE UNSTAINED CELL % 1.8 % (0.0-4.0); LYMPH # 1.4 K/mm3 (1.5-4.5); LYMPH % 38.2 % (24.0-44.0); MEAN CORPUSCULAR HEMOGLOBIN 28.2 pg (27.0-33.0); MEAN CORPUSCULAR HGB CONC 31.4 g/dl (32.0-36.5); MEAN CORPUSCULAR VOLUME 89.8 fl (80.0-96.0); MONO # 0.1 K/mm3 (0.0-0.8); MONO % 3.7 % (0.0-5.0); NEUTROPHILS # 1.9 K/mm3 (1.8-7.7); NEUTROPHILS % 53.1 % (36.0-66.0); PLATELET COUNT, AUTOMATED 166 k/mm3 (150-450); RED CELL DISTRIBUTION WIDTH 15.1 % (11.5-14.5); WHITE BLOOD COUNT 3.6 K/mm3 (4.0-10.0)
[2016-06-19 10:13] VITALS: BP 122/72
[2016-06-19] MEDS: MIRALAX *UNIT DOSE* 17GM PACKET PO SCH (10:13)
[2016-06-19] MEDS: POTASSIUM CHLORIDE 10 MEQ SR TABLET PO SCH (10:13)
[2016-06-19] MEDS: DICYCLOMINE 10 MG CAP PO SCH ×2 (10:13→17:12)
[2016-06-19] MEDS: FERROUS SULFATE 325MG TAB PO SCH (10:13)
[2016-06-19] MEDS: CALCIUM CARBONATE 500 MG CHEW U/D PO SCH (10:13)
[2016-06-19] MEDS: clonazePAM 1 MG TAB PO SCH ×2 (10:13→17:12)
[2016-06-19] MEDS: amLODIPine 10 MG TAB PO SCH (10:13)
[2016-06-19] MEDS: CETIRIZINE (ZyrTEC) 10 MG TAB PO SCH (10:14)
[2016-06-19] MEDS: MECLIZINE 25 MG TABLET PO SCH ×2 (10:14→17:12)
[2016-06-19] MEDS: SENOKOT S TAB PO SCH (10:14)
[2016-06-19] MEDS: ATENOLOL 50 MG TAB PO SCH (10:14)
[2016-06-19] MEDS: SODIUM CHLORIDE 0.9% INJ 10 ML SYR IV SCH (10:15)
[2016-06-19] MEDS: oxyCODONE 40 MG CR TAB PO SCH (10:15)
[2016-06-19 10:37] LABS: ALBUMIN 2.7 GM/DL (3.2-5.2); ALBUMIN/GLOBULIN RATIO 0.82 (1.00-1.93); ALKALINE PHOSPHATASE 428 U/L (45-117); ALT/SGPT 12 U/L (12-78); ANION GAP 10 MEQ/L (8-16); AST/SGOT 19 U/L (15-37); BILIRUBIN,TOTAL 0.5 MG/DL (0.2-1.0); BLOOD UREA NITROGEN 9 MG/DL (7-18); CARBON DIOXIDE LEVEL 26 MEQ/L (21-32); CHLORIDE LEVEL 109 MEQ/L (98-107); CREATININE FOR GFR 0.62 MG/DL (0.55-1.02); GLOMERULAR FILTRATION RATE > 60.0 (>51); GLUCOSE, FASTING 106 MG/DL (70-105); MAGNESIUM LEVEL 1.7 MG/DL (1.8-2.4); POTASSIUM SERUM 4.1 MEQ/L (3.5-5.1); SODIUM LEVEL 145 MEQ/L (136-145)
[2016-06-19 11:50] VITALS: BP 126/67
[2016-06-19] MEDS: PANTOPRAZOLE 20 MG TAB PO SCH (12:25)
[2016-06-19 14:00] VITALS: BP 131/75
[2016-06-19] MEDS ORDERED: MAG SULF 1GM/100ML (MAG RUN) 1 GM in APPROPRIATE DILUENT 1 EA IV ONE (14:00)
[2016-06-19 14:12] LABS: CALPROTECTIN STOOL 41 ug/g (0-120)
[2016-06-19] MEDS ORDERED: MAGNESIUM OXIDE 400 MG TAB (MAG-OX) PO ONE (15:15)
[2016-06-19] MEDS ORDERED: OXYC1TAB57 PO (15:28)
[2016-06-19] MEDS ORDERED: OXYC30TA84 PO (15:28)
[2016-06-19] MEDS ORDERED: CIPR500T89 PO (17:02)
[2016-06-19] MEDS: BISACODYL 10 MG SUPP PR PRN (17:12)
[2016-06-19] MEDS: oxyCODONE 5MG TAB PO PRN (17:14)
--- NOTE | 2016-06-19 18:40 | DS.PDOC ---
Discharge Summary General Date of Admission Jun 07, 2016 at 12:29 Date of Discharge Attending Physician: DENNIS PALAFOX MD Specialist/Consultants Involve: ESTIVEN PETE MD Discharge Summary PROCEDURES PERFORMED DURING STAY: ERCP with stent placement. COMPLICATIONS/CHIEF COMPLAINT: Abd Pain ADMISSION/DISCHARGE DIAGNOSES: 1. Major papilla congestion, dilated and tortuous bile duct status post plastic stent placement on 06/10 2. Possible SBP 3. Chronic anemia 4. Her hereditary angioedema with C1 esterase deficiency 5. History of of hepatitis B and C 6. Hypertension 7. Chronic stable right adrenal mass that will need outpatient follow-up by PCP 8. Chronic pain on OxyContin and oxycodone, follows up with outpatient pain management. 9. Constipation 10. Depression HISTORY OF PRESENT ILLNESS/HOSPITAL COURSE: This is a 55 [id number] female past medical history of C1 esterase deficiency, hereditary angioedema, chronic tracheostomy on an as needed when necessary Berinert, who follows up with Dr. Roca and had a recent laparoscopic cholecystectomy by Dr. Perkins in April 2016 secondary to cholelithiasis who presented to [facility] complaining of worsening abdominal pain. Patient does have chronic abdominal pain secondary to her hereditary angioedema and is on oxycodone and OxyContin by pain management outpatient. States that she typically takes her Berinert when she has abdominal flares from her angioedema however despite taking 6 doses or abdominal pain is not resolved. The patient was admitted and seen by surgery, had a HIDA scan done with some concerning findings of high-grade extrahepatic bile duct obstruction versus cholestasis. No evidence of bile leak noted. The patient then had a MR CP noting moderate dilation of the intra-and extrahepatic biliary tree and pancreatic duct. This has extended to the level of the ampulla with no mass noted. The patient was also noted to have some ascites as well, as well as stable 3 cm right adrenal mass. Patient was evaluated by gastroenterology and had ERCP with the plastic stent placement given major papillary congestion, dilated and tortuous bile duct. The patient's alkaline phosphatase has started to trend down after this procedure. The patient did have residual abdominal pain for which she had a paracentesis done and noted to have a possible SBP. The patient has been on Cipro and Flagyl and will be continued on an additional 3 days of ciprofloxacin for treatment of possible SBP. She will have close follow-up with Dr. Lopez in the next 1-2 weeks. DISCHARGE MEDICATIONS: Please see below. ALLERGIES: Please see below. PHYSICAL EXAMINATION ON DISCHARGE: Vitals: (see below) General: No acute distress, laying comfortably in bed. HEENT: Moist mucous membranes. Neck: No JVD or lymphadenopathy. Chronic trach intact no bleeding. Cardiac: RRR, No murmurs Pulm: Clear to auscultation b/l. No wheezing, rhonchi Abd: NT/ND + BS Ext: No edema or cyanosis LABORATORY DATA: Please see below. IMAGING: CT abd/pelvis 06/07/16 Impression: 1 Free fluid in the upper abdomen extending along the pericolic gutters into the pelvis as described above. Differential diagnosis includes bile leak as well as changes related to postoperative infectious/inflammatory process. There is no evidence for free air. There is no evidence for discrete drainable collection by current noncontrast evaluation. 2. Stable right adrenal mass. VTE Prophylaxis ordered?: Yes DISCHARGE CONDITION: Stable DISPOSITION: Discharge home ACTIVITY: As tolerated DIET: As tolerated DISCHARGE PLAN AND INSTRUCTIONS: 1. Follow-up with PCP as well as Dr. Barney in 1-2 weeks. TIME SPENT ON DISCHARGE: Greater than 30 minutes. Vital Signs/I&Os Vital Signs Date Time Temp Pulse Resp B/P Pulse Ox O2 Delivery O2 Flow Rate FiO2 06/19/16 17:44 18 06/19/16 14:00 99.4 73 131/75 94 Room Air I&O- Last 24 Hours up to 6 AM 06/19/16 05:59 Intake Total 1200 ml Balance 1200 ml Laboratory Data Labs 24H Laboratory Tests 2 06/19/16 09:59: Blood Urea Nitrogen 9, Creatinine 0.62, Sodium Level 145, Potassium Level 4.1, Chloride Level 109H, Carbon Dioxide Level 26, Calcium Level 8.0L, Aspartate Amino Transf (AST/SGOT) 19, Alanine Aminotransferase (ALT/SGPT) 12, Alkaline Phosphatase 428H, Total Bilirubin 0.5, Total Protein 6.0L, Albumin 2.7L, Albumin /Globulin Ratio 0.82L, Anion Gap 10, White Blood Count 3.6L, Red Blood Count 3.14L, Hemoglobin 8.8L, Hematocrit 28.2L, Mean Corpuscular Volume 89.8, Mean Corpuscular Hemoglobin 28.2, Mean Corpuscular Hemoglobin Concent 31.4L, Red Cell Distribution Width 15.1H, Platelet Count 166, Neutrophils (%) (Auto) 53.1, Lymphocytes (%) (Auto) 38.2, Monocytes (%) (Auto) 3.7, Eosinophils (%) (Auto) 2.5, Basophils (%) (Auto) 0.9, Neutrophils # (Auto) 1.9, Lymphocytes # (Auto) 1.4L, Monocytes # (Auto) 0.1, Eosinophils # (Auto) 0.1, Basophils # (Auto) 0.0, Glomerular Filtration Rate > 60.0, Large Unclassified Cells # 0.1, Large Unclassified Cells % 1.8, Magnesium Level 1.7L CBC/BMP Laboratory Tests 06/19/16 09:59 Calcium Level 8.0 L, Aspartate Amino Transf (AST/SGOT) 19, Alanine Aminotransferase (ALT/SGPT) 12, Alkaline Phosphatase 428 H, Total Bilirubin 0.5 , Total Protein 6.0 L, Albumin 2.7 L, Red Blood Count 3.14 L, Mean Corpuscular Volume 89.8, Mean Corpuscular Hemoglobin 28.2, Mean Corpuscular Hemoglobin Concent 31.4 L, Red Cell Distribution Width 15.1 H, Neutrophils (%) (Auto) 53.1 , Lymphocytes (%) (Auto) 38.2, Monocytes (%) (Auto) 3.7, Eosinophils (%) (Auto) 2.5, Basophils (%) (Auto) 0.9, Neutrophils # (Auto) 1.9, Lymphocytes # (Auto) 1.4 L, Monocytes # (Auto) 0.1, Eosinophils # (Auto) 0.1, Basophils # (Auto) 0.0 Microbiology Microbiology 06/18/16 Gram Stain - Final, Resulted 06/18/16 Body Fluid Culture, Resulted Pending 06/16/16 Stool Occult Blood (SANDIE) - Final, Complete 06/16/16 Stool Lactoferrin - Final, Complete 06/16/16 Clostridium difficile (PCR) - Final, Complete Medications Scheduled Amlodipine Besylate (Amlodipine Besylate) 10 Mg Tab 10 MG PO DAILY TAKES AT NOON Atenolol (Atenolol) 50 Mg Tab 50 MG PO BID Calcium Carbonate (Tums Ultra 1000) 1,000 Mg Chw 1,000 MG PO BID Cetirizine HCl (Cetirizine HCl) 10 Mg Tab 10 MG PO DAILY Ciprofloxacin HCl (Cipro) 500 Mg Tab 500 MG PO BID Clonazepam (Clonazepam) 2 Mg Tab 2 MG PO TID Docusate Sodium (Colace) 100 Mg Cap 100 MG PO TID Duloxetine Hcl (Cymbalta) 30 Mg Cap 60 MG PO DAILY Ergocalciferol (Vitamin D) 50,000 Unit Cap 50,000 UNIT PO 1XWK TAKES AT NOON ON WEDNESDAYS Ferrous Sulfate (Ferrous Sulfate) 325 Mg Tab 325 MG PO DAILY DOES NOT TAKE IF CONSTIPATED Hydrochlorothiazide (Hydrochlorothiazide) 50 Mg Tab 50 MG PO DAILY Magnesium Oxide (Magnesium Oxide 400) 400 Mg Tab 800 MG PO DAILY TAKES IN AFTERNOON Meclizine HCl (Meclizine HCl) 25 Mg Tab 25 MG PO TID Oxycodone HCl (Oxycodone HCl ER) 40 Mg Tab 40 MG PO BID Pantoprazole Sodium (Pantoprazole Sodium) 20 Mg Tab 20 MG PO DAILY TAKES AT NOON Potassium Chloride (Klor-Con M10) 10 Meq Tabcr 20 MEQ PO BID AFTERNOON AND QHS Pramipexole Dihydrochloride (Mirapex) 0.25 Mg Tab 0.25 MG PO QHS Scheduled PRN Acetaminophen (Tylenol) 325 Mg Tab 650 MG PO Q4H PRN PRN PAIN Azelastine Hydrochloride (Azelastine HCl) 137 Mcg/[place] Spr 1 SPRAY NA DAILY PRN PRN ALLERGIES C1 Esterase Inhibitor (Human) (Berinert) 500 Unit Inj 2,000 UNIT IV ASDIRECTED PRN PRN FLARE UP Magnesium Citrate (Citrate of Magnesia) 1 Tasha Tasha 300 ML PO DAILY PRN PRN CONSTIPATION Oxycodone Hcl (Oxycodone HCl) 30 Mg Tab 30 MG PO Q6H PRN PRN PAIN Penciclovir (Denavir) 1 Dose/5 Gm Cream 1 DOSE TOP DAILY PRN PRN COLD SORE APPLIED TO LIPS Polyethylene Glycol (Miralax) 1 Pow Pow 17 GM PO DAILY PRN PRN CONSTIPATION Promethazine HCl (Promethazine HCl) 25 Mg Tab 25 MG PO BID PRN PRN NAUSEA Suvorexant (Belsomra) 20 Mg Tab 20 MG PO QHS PRN PRN SLEEP Tizanidine Hydrochloride (Tizanidine HCl) 4 Mg Cap 4 MG PO TID PRN PRN MUSCLE SPASMS Triamcinolone Acet (Triamcinolone Acetonide 0.1% Crm) 1 Dose/15 Gm Cr 1 DOSE TOP BID PRN PRN RASH APPLY TO AFFECTED AREAS (PSORIASIS) Allergies Coded Allergies: Aspirin (Verified Allergy, Severe, TRIGGERS ANGIOEDEMA, 08/23/12) Codeine (Verified Allergy, Severe, EXACERBATES ANGIOEDEMA, 08/23/12) Ketorolac (Verified Allergy, Intermediate, HIVES, 05/16/16) PT HAS TAKEN IBUPROFEN IN THE PAST WITHOUT ANY ISSUES Penicillins (Verified Allergy, Intermediate, HIVES, RASH, 08/23/12) HIVES, WORSENS ANGIOEDEMA Pentazocine (Verified Adverse Reaction, Severe, HALLUCINATIONS, 08/23/12) Prochlorperazine (Verified Adverse Reaction, Severe, SEVERE ANXIETY, ) Gabapentin (Verified Adverse Reaction, Intermediate, CONFUSION, 08/23/12) Pregabalin (Verified Adverse Reaction, Intermediate, CONFUSION, 08/23/12) Morphine (Verified Adverse Reaction, Mild, HEADACHES,CONFUSION, 08/23/12) Ondansetron (Verified Adverse Reaction, Mild, CONFUSION, 08/23/12) DENNIS PALAFOX MD Jun 19, 2016 18:40
== END 2016-06-19 19:10 | disposition home health service (06) ==
LOC: M ED 08:08 → M ED INP 12:29 → M MSPAV 13:42 → M MS5PR 06-10 20:25
PROVIDERS: ADMIT General Practice; ATTEND Internal Medicine
PROC: BF11YZZ Fluoroscopy of Biliary and Pancreatic Ducts using Other Contrast (ICD-10-PCS; principal; 2016-06-10 16:00)
PROC: 0W9G3ZZ Drainage of Peritoneal Cavity, Percutaneous Approach (ICD-10-PCS; 2016-06-18)
DX: K83.1 Obstruction of bile duct (principal); N17.9 Acute kidney failure, unspecified; D84.1 Defects in the complement system; Z93.0 Tracheostomy status; E27.8 Other specified disorders of adrenal gland; R18.8 Other ascites; D50.9 Iron deficiency anemia, unspecified; F32.9 Major depressive disorder, single episode, unspecified; K59.00 Constipation, unspecified; I10 Essential (primary) hypertension; B18.1 Chronic viral hepatitis B without delta-agent; B18.2 Chronic viral hepatitis C; Z79.899 Other long term (current) drug therapy; Z88.0 Allergy status to penicillin; Z88.8 Allergy status to other drugs, medicaments and biological substances; Z88.5 Allergy status to narcotic agent; Z85.3 Personal history of malignant neoplasm of breast; M40.209 Unspecified kyphosis, site unspecified; G60.9 Hereditary and idiopathic neuropathy, unspecified; E87.6 Hypokalemia; G25.81 Restless legs syndrome; F41.9 Anxiety disorder, unspecified

== ENCOUNTER 2016-07-19 07:36 | Inpatient (IN) | payer OTHER ==
[~2016-07-19] VITALS: Ht 152.4 cm; Wt 60.0 kg
[~2016-07-19 07:36] MED LIST changes: +CIPR500T89 PO
[2016-07-19] MEDS ORDERED: ONDANSETRON 4MG/2ML VIAL (J2405) As Ordered ONE (08:05)
[2016-07-19] MEDS ORDERED: HYDROmorphone HCL 1 MG/ML SYRINGE (J1170) As Ordered ONE ×3 (08:05→12:18)
[2016-07-19 08:23] LABS: BASO % 0.3 % (0.0-1.0); EOS # 0.1 K/mm3 (0.0-0.50); EOS % 1.6 % (0.0-3.0); LARGE UNSTAINED CELL # 0.1 K/mm3 (0.0-0.4); LARGE UNSTAINED CELL % 1.8 % (0.0-4.0); LYMPH # 1.9 K/mm3 (1.5-4.5); LYMPH % 29.3 % (24.0-44.0); MEAN CORPUSCULAR HEMOGLOBIN 28.9 pg (27.0-33.0); MEAN CORPUSCULAR HGB CONC 33.9 g/dl (32.0-36.5); MEAN CORPUSCULAR VOLUME 85.1 fl (80.0-96.0); MONO # 0.2 K/mm3 (0.0-0.8); MONO % 3.5 % (0.0-5.0); NEUTROPHILS # 3.9 K/mm3 (1.8-7.7); NEUTROPHILS % 63.4 % (36.0-66.0); PLATELET COUNT, AUTOMATED 141 k/mm3 (150-450); RED CELL DISTRIBUTION WIDTH 14.3 % (11.5-14.5); WHITE BLOOD COUNT 6.1 K/mm3 (4.0-10.0)
[2016-07-19 08:45] LABS: ALBUMIN 3.1 GM/DL (3.2-5.2); ALBUMIN/GLOBULIN RATIO 0.76 (1.00-1.93); ALKALINE PHOSPHATASE 404 U/L (45-117); ALT/SGPT 38 U/L (12-78); ANION GAP 8 MEQ/L (8-16); AST/SGOT 80 U/L (15-37); BILIRUBIN,DIRECT 0.3 MG/DL (0.0-0.2); BILIRUBIN,TOTAL 0.5 MG/DL (0.2-1.0); BLOOD UREA NITROGEN 14 MG/DL (7-18); CALCIUM LEVEL 8.6 MG/DL (8.5-10.1); CARBON DIOXIDE LEVEL 30 MEQ/L (21-32); CHLORIDE LEVEL 105 MEQ/L (98-107); CREATININE FOR GFR 0.61 MG/DL (0.55-1.02); GLOMERULAR FILTRATION RATE > 60.0 (>51); GLUCOSE, FASTING 96 MG/DL (70-105); POTASSIUM SERUM 3.4 MEQ/L (3.5-5.1); SODIUM LEVEL 143 MEQ/L (136-145); TOTAL PROTEIN 7.2 GM/DL (6.4-8.2)
[2016-07-19] MEDS ORDERED: POTASSIUM CHLORIDE 10 MEQ SR TABLET As Ordered ONE (08:58)
[2016-07-19] MEDS ORDERED: GASTROGRAFIN SOLUTION 30ML (Q9963) As Ordered ONE (08:59)
[2016-07-19] MEDS ORDERED: ISOVUE-370 76% 100ML VIAL (Q9967) As Ordered ONE (09:57)
--- NOTE | 2016-07-19 12:10 | REP ---
Clinical: Abdominal pain. Technique: Axial contrast enhanced images from the lung bases to the pubic symphysis using oral and 100 ml Isovue 370 intravenous contrast material with coronal and sagittal re-formations. Comparison: 06/07/2016, 05/14/2016. Findings: Pneumobilia is identified and likely secondary to stent extending from what appears to be the common bile duct to duodenum. Intrahepatic and extrahepatic biliary ductal dilatation is appreciated along with ill-defined inflammatory changes in the right upper quadrant/gallbladder fossa and region of the william hepatis. The patient is status post cholecystectomy. Spleen, left adrenal gland and bilateral kidneys are normal. The pancreas demonstrates chronic ductal dilatation. Right adrenal gland demonstrates 3.4 cm mass with heterogeneous enhancement which is similar to 2012 and likely represents complex adenoma. There is no evidence for bowel obstruction or obvious acute inflammatory process to the enteric system. Pelvis demonstrates partially collapsed normal bladder and age-appropriate uterus/adnexa. No significant ascites. No free air. No obvious adenopathy or intra-abdominal mass identified. Abdominal aorta is normal caliber without aneurysm. Musculoskeletal structures demonstrate degenerative changes without focal osseous abnormality. Lung bases demonstrate chronic bronchiectasis and bibasilar fibrosis/scarring. Impression: Pneumobilia likely due to stent extending from the common bile duct to the duodenum. Inflammatory type changes in the right upper quadrant related to the gallbladder fossa are similar to prior examination. No obvious discrete mass lesion is appreciated. 3.4 cm complex enhancing stable right adrenal mass. No further acute abdominopelvic findings. Signed by Rodri Hayes MD 07/19/2016 12:02 P
[2016-07-19] MEDS ORDERED: METOCLOPRAMIDE INJ 10MG/2ML VIAL (J2765) IV PRN (12:45)
[2016-07-19] MEDS ORDERED: HYDROmorphone HCL 2 MG/ML 1ML VIAL (J1170) IV PRN (12:45)
[2016-07-19] MEDS ORDERED: NS 1,000 ML IV SCH (13:00)
[2016-07-19] MEDS ORDERED: D5W/0.9% SODIUM CHLORIDE 1,000 ML IV SCH (13:00)
[2016-07-19] MEDS ORDERED: OXYC30TA84 PO (13:51)
[2016-07-19] MEDS ORDERED: DULC10SU2 PR (13:51)
[2016-07-19] MEDS ORDERED: SENN1TAB4 PO (13:51)
[2016-07-19] MEDS ORDERED: OXYC40TA12 PO (13:51)
--- NOTE | 2016-07-19 14:20 | EDDOCDS ---
Physician Documentation [facility] Name: Maribell Herrera Age: 55 yrs Sex: Female : 1960 Arrival Date: 07/19/2016 Time: 07:36 Bed 17 Private MD: Disposition: 07/19/16 12:29 Hospitalization ordered by Dena Huerta for Inpatient Admission. Preliminary diagnosis are Generalized abdominal pain - Pneumobilia, Anemia, unspecified. - Bed requested for 4 [place]. - Status is Inpatient Admission. hs1 - Condition is Stable. - Problem is new. - Symptoms are unchanged. Historical: - Allergies: Aspirin; Codeine Sulfate; GABAPENTIN; Morphine; PENICILLINS; PENTAZOCINE; pregabalin; Prochlorperazine Maleate; Toradol; - Home Meds: 1. amlodipine 10 mg Oral tab 1 tab once daily 2. atenolol 50 mg Oral tab 1 tab once daily 3. Belsomra 20 mg oral tab 1 tab nightly 4. Berinert 500 unit (10 mL) intravenous kit 2000 units as needed (Last dose: 07/19/2016 04:30) 5. calcium carbonate 500 mg calcium (1,250 mg) Oral chew daily 6. cetirizine 10 mg oral tab 1 tab once daily 7. clonazepam 2 mg Oral tab 1 tab 3 times per day (Last dose: 07/18/2016) 8. Colace 100 mg oral cap 1 cap three times a day 9. Cymbalta 30 mg Oral cpDR 1 cap 2 times per day 10. ferrous sulfate 325 mg (65 mg iron) Oral tab as needed 11. hydrochlorothiazide 50 mg Oral tab 1 tab once daily 12. Klor-Con 10 10 mEq Oral TbER 1 tab 2 times per day 13. magnesium oxide 400 mg Oral tab daily 14. Miralax 17 gram Oral pwpk 1 packet as needed 15. Mirapex 0.25 mg Oral tab 1 tab daily 16. oxycodone 15 mg Oral Tb12 1 tab every 4 hours as needed (Last dose: 07/19/2016 04:30) 17. OxyContin 40 mg Oral TR12 1 tab every 12 hours (Last dose: 07/18/2016) 18. pramipexole 0.125 mg oral tab nightly 19. Prilosec 40 mg Oral cpDR 1 cap once daily 20. promethazine 25 mg Oral tab 1 tab twice daily as needed as needed - PMHx: angioedema; Cancer, Breast - Left; Degenerative disc disease; Hepatitis B; Hepatitis C; Hypertension; neuropathy; Osteoporosis; - PSHx: Cholecystectomy; Mastectomy- Left; Appendectomy; Orthopedic Surgery; Infusa port insertion; Tracheostomy; - Social history: Smoking status: Patient states former smoker of tobacco. No barriers to communication noted, The patient speaks fluent Belarusian, Speaks appropriately for age. - Family history: Not pertinent. - : The pt / caregiver states he / she is not on anticoagulants. Home medication list is obtained from a discharge med list. - Exposure Risk Screening:: None identified. Vital Signs: 07/19 07:45 BP 145 / 80 LA Sitting (auto/reg); Pulse 75; Resp 18; Temp 98.9(TE); Pulse Ox 100% on jrd R/A; Weight 65.77 kg / 145 lbs (R); Height 5 ft. 0 in. (152.40 cm); Pain 9/10; 08:32 BP 111 / 64; Pulse 71; Resp 18; Pulse Ox 94% ; Pain 9/10; hs1 10:15 Pulse Ox 82% ; hs1 10:15 BP 107 / 65; Pulse 71; Pulse Ox 92% ; Pain 8/10; hs1 10:16 BP 107 / 65 (auto/); Pulse 72; Resp 18; hs1 11:08 Pulse Ox 89% ; hs1 11:08 BP 122 / 64 (auto/); Pulse 71; hs1 11:21 Pulse Ox 94% ; hs1 12:11 BP 119 / 79; Pulse 75; Resp 20; Temp 99.1(TE); Pulse Ox 95% on R/A; rn1 12:36 Pulse Ox 88% ; hs1 12:36 BP 122 / 86 (auto/); Pulse 73; Resp 20; hs1 13:53 BP 120 / 68 (auto/); Pulse 72; Resp 18; Temp 98.7(O); Pulse Ox 96% ; Pain 8/10; hs1 07:45 Body Mass Index 28.32 (65.77 kg, 152.40 cm) jrd MDM: 07:38 CBC with Diff Ordered. EDMS 07:38 BMP Ordered. EDMS 07:38 Liver Profile Ordered. EDMS 07:38 Lipase Ordered. EDMS 08:01 Dilaudid - HYDROmorphone 1 mg IVP once ordered. br1 08:01 NS 0.9% 1000 ml IV at 150 mL/hr continuous ordered. br1 08:01 Ondansetron 4 mg IVP once ordered. br1 08:04 Misc. Nursing Order ordered. br1 08:06 Urinalysis Ordered. EDMS 08:06 Urine Culture Ordered. EDMS 08:40 Financial registration complete. [id number] 08:41 [facility] Payment Agreement was scanned into [employer] and attached to record. mm15 08:45 CBC with Diff Reviewed. br1 08:46 CT ABD & PELVIS: IV and Oral Contrast Ordered. EDMS 08:52 BMP Reviewed. br1 08:52 Liver Profile Reviewed. br1 08:52 Lipase Reviewed. br1 08:53 Potassium Chloride Extended Release Tablet 40 mEq PO once ordered. br1 08:58 Dilaudid - HYDROmorphone 1 mg IVP once ordered. br1 09:09 Diatrizoate Meglumine & Sodium Liquid 10 ml PO once; mix in 290cc of water ordered. hs1 09:09 Diatrizoate Meglumine & Sodium Liquid 10 ml PO once; mix in 290cc of water ordered. hs1 12:10 Urinalysis Reviewed. br1 12:16 Dilaudid - HYDROmorphone 1 mg IVP once ordered. br1 12:20 BED REQUEST+ADM ordered. EDMS 12:48 Admission / Observation Status ordered. EDMS 12:48 NPO DIET ordered. EDMS 13:44 T-Sheet-- Draft Copy was scanned into [employer] and attached to record. [facility] Administered Medications: 08:16 Drug: Ondansetron 4 mg [ondansetron HCl 2 mg/mL intravenous solution (2 mL)] Route: jjr IVP; Site: Implantable Access Device; 08:17 Drug: Dilaudid - HYDROmorphone 1 mg [hydromorphone 1 mg/mL injection syringe (1 mL)] jjr Route: IVP; Site: Implantable Access Device; 08:32 Follow up: BP 111 / 64; Pulse 71 bpm; Resp 18 bpm; Pulse Ox 94% ; Pain 9/10 Adult; hs1 Response: No significant change. 08:17 Drug: NS 0.9% 1000 ml [sodium chloride 0.9 % intravenous solution] Route: IV; Rate: 150 jjr mL/hr; Site: Implantable Access Device; 14:19 Follow up: IV Status: Infusion continued upon admit; IV Intake: 800ml hs1 09:08 Drug: Potassium Chloride 40 mEq [potassium chloride ER 10 mEq tablet,extended release hs1 (4 tabs)] Route: PO; 09:08 Drug: Dilaudid - HYDROmorphone 1 mg [hydromorphone 1 mg/mL injection syringe (1 mL)] hs1 Route: IVP; Site: Implantable Access Device; 10:15 Follow up: BP 107 / 65; Pulse 71 bpm; Pulse Ox 92% ; Pain 8/10 Adult; Response: No hs1 significant change. 09:10 Drug: Diatrizoate Meglumine & Sodium 10 ml [diatrizoate meglumine and diat.sodium 66 hs1 %-10 % oral solution (10 mL)] Route: PO; 09:51 Drug: Diatrizoate Meglumine & Sodium 10 ml [diatrizoate meglumine and diat.sodium 66 hs1 %-10 % oral solution (10 mL)] Route: PO; 12:23 Drug: Dilaudid - HYDROmorphone 1 mg [hydromorphone 1 mg/mL injection syringe (1 mL)] hs1 Route: IVP; Site: Implantable Access Device; Signatures: Dispatcher [employer] EDDaryl Moody MD MD br1 Katey August RN RN hs1 Evelia Hester [id number] Carole Layton Jessica RN jjr The chart was reviewed and I authenticate all verbal orders and agree with the evaluation and treatment provided.Corrections: (The following items were deleted from the chart) 08:14 07:38 IV Saline Lock ordered. br1 hs1 Attachments: 08:41 [facility] Payment Agreement [email or web address] 13:44 T-Sheet-- Draft Copy [facility] MTDD
[2016-07-19 14:30] VITALS: BP 123/64
[2016-07-19] MEDS ORDERED: C1 ESTERASE INHIBITOR 500 UNIT IV PRN (14:30)
[2016-07-19] MEDS: PANTOPRAZOLE 40MG INJ (PROTONIX) (C9113) IV SCH (14:56)
[2016-07-19] MEDS: DULoxetine 30 MG CAP (CYMBALTA) PO SCH (14:56)
[2016-07-19] MEDS: oxyCODONE 40 MG CR TAB PO SCH ×2 (14:56→21:11)
[2016-07-19] MEDS: clonazePAM 1 MG TAB PO SCH ×2 (15:51→21:09)
[2016-07-19] MEDS: oxyCODONE 5MG TAB PO PRN ×2 (15:52→21:21)
[2016-07-19] MEDS: KCL 40MEQ IN D5/NS 1000ML 1,000 ML IV SCH (15:52)
[2016-07-19] MEDS: HYDROmorphone HCL 1 MG/ML SYRINGE (J1170) IV PRN (18:54)
[2016-07-19] MEDS ORDERED: ACETAMINOPHEN TAB 650MG DOSE (2X325MG) PO ONE (20:45)
[2016-07-19] MEDS: ATENOLOL 50 MG TAB PO SCH (21:17)
[2016-07-19 22:00] VITALS: BP 118/65
[2016-07-20] MEDS: HYDROmorphone HCL 1 MG/ML SYRINGE (J1170) IV PRN ×2 (02:01→09:29)
[2016-07-20] MEDS: oxyCODONE 5MG TAB PO PRN ×2 (03:46→12:16)
[2016-07-20] MEDS: ACETAMINOPHEN TAB 650MG DOSE (2X325MG) PO PRN ×3 (05:54→17:51)
[2016-07-20] MEDS: KCL 40MEQ IN D5/NS 1000ML 1,000 ML IV SCH (05:55)
[2016-07-20 06:27] LABS: BASO % 0.3 % (0.0-1.0); EOS # 0.1 K/mm3 (0.0-0.50); EOS % 1.8 % (0.0-3.0); LARGE UNSTAINED CELL # 0.1 K/mm3 (0.0-0.4); LYMPH % 48.7 % (24.0-44.0); MEAN CORPUSCULAR HEMOGLOBIN 28.5 pg (27.0-33.0); MEAN CORPUSCULAR HGB CONC 33.2 g/dl (32.0-36.5); MEAN CORPUSCULAR VOLUME 85.7 fl (80.0-96.0); MONO # 0.1 K/mm3 (0.0-0.8); MONO % 2.6 % (0.0-5.0); NEUTROPHILS # 1.8 K/mm3 (1.8-7.7); NEUTROPHILS % 44.5 % (36.0-66.0); PLATELET COUNT, AUTOMATED 139 k/mm3 (150-450); RED CELL DISTRIBUTION WIDTH 14.2 % (11.5-14.5); WHITE BLOOD COUNT 4.1 K/mm3 (4.0-10.0)
[2016-07-20 06:51] LABS: ALBUMIN/GLOBULIN RATIO 0.83 (1.00-1.93); ALKALINE PHOSPHATASE 302 U/L (45-117); ALT/SGPT 28 U/L (12-78); ANION GAP 7 MEQ/L (8-16); AST/SGOT 34 U/L (15-37); BILIRUBIN,TOTAL 0.4 MG/DL (0.2-1.0); BLOOD UREA NITROGEN 9 MG/DL (7-18); CALCIUM LEVEL 8.4 MG/DL (8.5-10.1); CARBON DIOXIDE LEVEL 29 MEQ/L (21-32); CHLORIDE LEVEL 106 MEQ/L (98-107); CREATININE FOR GFR 0.55 MG/DL (0.55-1.02); GLOMERULAR FILTRATION RATE > 60.0 (>51); GLUCOSE, FASTING 89 MG/DL (70-105); POTASSIUM SERUM 4.1 MEQ/L (3.5-5.1); SODIUM LEVEL 142 MEQ/L (136-145); TOTAL PROTEIN 6.6 GM/DL (6.4-8.2)
[2016-07-20] MEDS: clonazePAM 1 MG TAB PO SCH ×3 (08:24→20:03)
[2016-07-20] MEDS: DULoxetine 30 MG CAP (CYMBALTA) PO SCH (08:25)
[2016-07-20] MEDS: ATENOLOL 50 MG TAB PO SCH ×2 (08:30→20:04)
[2016-07-20] MEDS: oxyCODONE 40 MG CR TAB PO SCH ×2 (08:33→20:03)
[2016-07-20] MEDS: ENOXAPARIN 40 MG/0.4 ML SYRINGE (J1650) SC SCH (08:33)
[2016-07-20] MEDS: PANTOPRAZOLE 40MG INJ (PROTONIX) (C9113) IV SCH (08:34)
--- NOTE | 2016-07-20 08:41 | HPE ---
DATE OF ADMISSION: 07/19/2016 PRIMARY CARE PROVIDER: Jose CHIEF COMPLAINTS: Abdominal pain, generalized, worsening over the past 3 days, generalized bone pain and body pain worsening over the past 3 weeks. PAST MEDICAL HISTORY: 1. Congenital C1 esterase inhibitor deficiency. 2. Hereditary angioedema. 3. Chronic tracheostomy, inserted for recurrent angioedema. 4. Hypertension. 5. Hepatitis B. 6. Hepatitis C. 7. History of left breast cancer, status post modified radical mastectomy and chemotherapy. 8. Neuropathy. 9. Osteoporosis. 10. Kyphosis. 11. Degenerative disc disease. 12. History of cholelithiasis, status post cholecystectomy in April 2016. 13. History of common bile duct (CBD) dilatation, status post stenting in May 2016. 14. Chronic pain, on chronic narcotics. 15. Chronic anemia. 16. Right adrenal mass, 3 cm, stable. 17. Depression. 18. Major papilla congestion and dilated and congested tortuous biliary duct, status post stent placement on 06/10/2016. HISTORY OF PRESENT ILLNESS: This is a 55-year-old female with history of hepatitis B, hepatitis C, chronic pain on long-term narcotics, congenital angioedema with C1 esterase inhibitor deficiency with tracheostomy in place, presented to the hospital with 3-day history of worsening abdominal pain and 3 weeks of still worsening generalized body pain, hip pain, bone pain, back pains. Patient recently had a cholecystectomy done in April 2016. In May 2016, she was found to have dilatation of the intrahepatic and extrahepatic biliary system as well as dilatation of the pancreatic duct extending up to the ampulla so underwent endoscopic retrograde cholangiopancreatography (ERCP) and biliary stent placement with appropriate response and decrease in alkaline phosphatase and comes back today with body aches and pains, which have been worsening since her discharge from hospital as well as abdominal pain, which had improved for 2 weeks after discharge from the hospital but then again started about 10-12 days ago and worsened over the past 3 days. She denied any vomiting or diarrhea. Denied any nausea or constipation. She denied any fever or chills. Denied any chest pain, shortness of breath. She did take her Berinert this morning; however, there was no improvement in pain, so she comes to the emergency room. In the emergency room, she describes the pain, which is not completely similar to her recurrent pain due to angioedema; however, she is not sure and said that it could be angioedema, also. Patient received 3 mg of Dilaudid in the emergency room without control of pain. She had a CT abdomen/pelvis done, which showed biliary stent extending from the common bile duct to the duodenum. There was intra- and extrahepatic biliary ductal dilatation and chronic ill-defined inflammatory changes in the right upper quadrant and gallbladder fossa region. Pancreas demonstrated chronic ductal dilatation. There was right adrenal adenoma, 3.4 cm mass with heterogeneous enhancement, similar to that in 2012, which likely represents complex adenoma. There was no evidence of any bowel obstruction or any acute inflammation of the enteric system. There was no ascites. No free air. No lymphadenopathy. Abdominal aorta was normal. The patient was discussed with surgery by the emergency room (ER) physician and, as per Dr. Valenzuela, the patient does not have any surgical emergency. Patient was then admitted to the hospitalist service for pain control. Patient last saw her pain clinic physician about 3 weeks ago when her pain medications were not adjusted. She also saw her rock dust sprayer 3 days ago, and her Berinert is already at the maximum dose and she was advised to continue the same. PAST SURGICAL HISTORY: 1. Cholecystectomy. 2. CBD stent placement. 3. Left mastectomy. 4. Infusaport placement. 5. Appendectomy. 6. Tubal ligation. 7. Tracheostomy. 8. Right hip surgery. SOCIAL HISTORY: Patient does not smoke or use alcohol or recreational drugs. Lives at home by herself and has a chronic trach. ALLERGIES: To ASPIRIN, GABAPENTIN, CODEINE, KETOROLAC, MORPHINE, ONDANSETRON, PENICILLIN, PENTAZOCINE, PREGABALIN, PROCHLORPERAZINE. FAMILY HISTORY: Not contributory. REVIEW OF SYSTEMS: As per history of present illness (HPI). 12-point systems review was negative. PHYSICAL EXAM: VITAL SIGNS: Blood pressure 119/79, pulse 75, respiratory rate 20, temperature 99.1, pulse oximetry 95% in room air. GENERAL: Patient awake, alert, oriented times three, laying down in bed, in no acute distress. HEENT: Normocephalic, atraumatic. Moist mucous membranes. Anicteric eyes. CHEST: Clear to auscultation. CARDIOVASCULAR: S1, S2, regular. No rub, murmur, gallop. ABDOMEN: Soft. Has generalized tenderness. Bowel sounds are normal. EXTREMITIES: No edema. LABORATORY DATA: WBC 6.1, hemoglobin 9, platelets 141. Sodium 143, potassium 3.4, chloride 105, bicarbonate 30, BUN 14, creatinine 0.6. Liver function tests: AST is 80, ALT 38, alkaline phosphatase 404, total bilirubin 0.5, calcium 8.6, albumin 3.1, total protein 7.2. Urinalysis (UA): Clean. ASSESSMENT AND PLAN: This is a 55-year-old female admitted for abdominal pain. PLAN: 1. For abdominal pain, we do not have any etiology at this point. It could be related to flare-up of angioedema, so we will continue with Berinert as needed. We will continue with home OxyContin and oxycodone dosage as well as give Dilaudid for breakthrough pain. If the pain does not improve, we will consult with surgery tomorrow. Patient's alkaline phosphatase does show it is coming down gradually since last admission. Also, CT abdomen/pelvis showed that the stent was in good position. There was no acute pathology and no acute intra-abdominal pathology. 2. C1 esterase inhibitor and congenital angioedema. We will continue with Berinert at home dosage. 3. Chronic hepatitis B and hepatitis C, stable at this point. 4. Hypertension. We will continue with atenolol. We will hold hydrochlorothiazide and also hold amlodipine at this point. 5. Chronic generalized pain. We will continue with home dosage as well as Dilaudid. If pain does not improve, we will consult with pain management. 6. Anxiety and depression. We will continue with clonazepam. 7. Gastrointestinal (GI) prophylaxis has been ordered. 8. Deep venous thrombosis (DVT) prophylaxis has been ordered. 9. Neuropathy. We will continue with Cymbalta. 10. Psoriasis, chronic. No issues at this point.
[2016-07-20 14:00] VITALS: BP 133/70
--- NOTE | 2016-07-20 14:06 | IPN ---
DATE: 07/20/2016 SUBJECTIVE: Today, the patient tells me that she is having continued pain. It is in the bilateral lower quadrants. She denies associated nausea, vomiting, diarrhea, fevers or chills. OBJECTIVE: VITAL SIGNS: Temperature 99.2, respiratory rate 18, blood pressure 120/65 and oxygen saturation 99% on room air. General: She is a morbidly obese older female sitting on the edge of the bed leaning over. She appears in some mild discomfort. HEENT: She has exophthalmos. Appears to have some edema of the lips. Cushingoid in phenotype. No elevation of CVP. Cardiovascular Exam: S1, S2. Regular. Respiratory Exam: Clear. Abdominal Exam: Obese. Bowel sounds present. There is diffuse tenderness to palpation. Extremities: No clubbing, cyanosis or edema. LABORATORY STUDIES: WBC 4.1, hemoglobin 8.7, hematocrit 26.1, and platelet count 139. Chemistry panel: Sodium 142, potassium 4.1, chloride 106, bicarbonate 29, BUN 9, creatinine 0.5, AST and ALT within normal limits, alkaline phosphatase 302 down from 404. Urinalysis (UA) essentially unremarkable. Urine culture is negative. IMAGING: The patient had a CT scan of her abdomen and pelvis which reveals pneumobilia likely due to stent extending from the common bile duct to the duodenum. Inflammatory type changes in the right upper quadrant related to the gallbladder fossa are similar to previous exams. No obvious discrete mass lesion is appreciated. 3.4 cm complex adrenal mass. ASSESSMENT AND PLAN: This is a 55-year-old female with acute on chronic abdominal pain. PROBLEMS: 1. Acute on chronic abdominal pain. The patient had obstructing extra biliary duct which is status post placement by Dr. Parra of gastroenterology approximately one month ago. The patient reported some mild improvement in her symptoms following stenting; however, her symptoms gradually recurred as colicky abdominal pain in nature. Unfortunately, Dr. Parra is not ammonia box operator. The patient had previously followed with Dr. Franklin who I was able to contact today. She is actually discharged from his practice with concern for drug seeking behavior and that she has had chronic abdominal pain for the last fifteen years. He had suggested an angioedema clinic at a major center might benefit her. At this time, I will continue to keep her nothing by mouth to see if her abdominal pain improves. A pain management consult will be placed. I will also check a MRCP to evaluate the patency of her stents. If there are no obstructions to her stents and she remains afebrile without leukocytosis I feel as though she could likely begin a clear liquid diet and transitioning to oral medications and discharge with followup with Dr. Parra, the pain clinic, and potential referral to an angioedema center. 2. C1 esterase inhibitor deficiency. Will continue her home Berinert as needed. 3. Chronic hepatitis B and hepatitic C. Stable. She is not on therapy and does not receive treatment for either of these. Could consider referral on the outpatient setting to infectious disease. 4. Hypertension. Continue with atenolol. Her amlodipine and hydrochlorothiazide are on hold at this point. 5. Anxiety. Continue with clonazepam. 6. Neuropathy. Continue with Cymbalta. 7. Deep vein thrombosis (DVT) prophylaxis. The patient is on Lovenox.
--- NOTE | 2016-07-20 16:29 | REP ---
MRCP examination without contrast: History: Evaluate biliary stent patency. Comparison is made with CT examination from 07/19/2016. Technique: Axial and coronal T2-weighted haste and true FISP imaging is acquired in the abdomen. In addition, T2-weighted turbo spin echo [id number] MR imaging is acquired and maximal intensity projection images are generated. Study is quite limited however due to the patient's inability to breath hold for NG tube tracheostomy. Findings: Limited study demonstrates evidence of splenomegaly. Spleen measures 14 cm in greatest dimension. No focal hepatic lesion is seen. No visible ascites noted. There is no definite intrahepatic biliary ductal dilation. The main pancreatic duct is mildly to moderately dilated as on CT study. The common bile duct is not well seen due to the stent and study limitations described above. The distal common bile duct does not appear to be dilated. Impression: Limited study. Splenomegaly. Dilated main pancreatic duct. No biliary ductal dilation is observed. Signed by Adni Owens MD 07/20/2016 04:32 P
--- NOTE | 2016-07-20 16:57 | CR.PDOC ---
[facility] Pain Clinic Consultation General Date of Consultation: 07/20/16 Consultation Report For: MILAGROS GILLESPIE MD Chief Complaint The patient is a 55-year-old female admitted with a reason for visit of Abdominal Pain. Pain management is asked to see her for continued evaluation of her pain medications and pain medication response History of Present Illness Maribell Herrera is a 55-year-old female well known to our practice. She was seen during her most recent hospitalization status post bile duct stent placement. Since her recent hospitalization she has been managed for her ongoing pain by Dr. Stiven Roque and managed with Oxycontin ER 40 mg twice a day and oxycodone IR 30 mg 1 every 6 hours when necessary pain. She did return to the hospital on 07/20/2016 with return of abdominal pain which she reports is "different then her angioedema pain." Since admission she has received 3 doses of Dilaudid 1 mg IV with good relief. Today at the time of my visit she is quite sleepy and does report she is having abdominal pain. Reports the pain is in the center epigastric region radiating to the right and into her back. Rates the pain level at this time as a 5/10 but notes that it can get as high as an 8-9/10. Reports that the additional Dilaudid is helpful the brain the pain under control. Home Medications Scheduled Amlodipine Besylate (Amlodipine Besylate) 10 Mg Tab 10 MG PO DAILY (Reported) TAKES AT NOON Atenolol (Atenolol) 50 Mg Tab 50 MG PO BID (Reported) Calcium Carbonate (Tums Ultra 1000) 1,000 Mg Chw 1,000 MG PO BID (Reported) Cetirizine HCl (Cetirizine HCl) 10 Mg Tab 10 MG PO DAILY (Reported) Clonazepam (Clonazepam) 2 Mg Tab 2 MG PO TID (Reported) Docusate Sodium (Colace) 100 Mg Cap 100 MG PO TID (Reported) Duloxetine Hcl (Cymbalta) 30 Mg Cap 60 MG PO DAILY (Reported) Ergocalciferol (Vitamin D) 50,000 Unit Cap 50,000 UNIT PO 1XWK (Reported) TAKES AT NOON ON WEDNESDAYS Ferrous Sulfate (Ferrous Sulfate) 325 Mg Tab 325 MG PO DAILY (Reported) DOES NOT TAKE IF CONSTIPATED Hydrochlorothiazide (Hydrochlorothiazide) 50 Mg Tab 50 MG PO DAILY (Reported) Magnesium Oxide (Magnesium Oxide 400) 400 Mg Tab 800 MG PO DAILY (Reported) TAKES IN AFTERNOON Oxycodone HCl (Oxycontin) 40 Mg Tab 40 MG PO Q12H (Reported) Pantoprazole Sodium (Pantoprazole Sodium) 20 Mg Tab 20 MG PO DAILY (Reported) TAKES AT NOON Polyethylene Glycol (Miralax) 1 Pow Pow 17 GM PO DAILY (Reported) Potassium Chloride (Klor-Con M10) 10 Meq Tabcr 20 MEQ PO BID (Reported) AFTERNOON AND QHS Pramipexole Dihydrochloride (Mirapex) 0.25 Mg Tab 0.25 MG PO QHS (Reported) Scheduled PRN Azelastine Hydrochloride (Azelastine HCl) 137 Mcg/[place] Spr 1 SPRAY NA DAILY PRN PRN ALLERGIES (Reported) Bisacodyl (Dulcolax) 10 Mg Sup 10 MG KS DAILY PRN PRN CONSTIPATION (Reported) C1 Esterase Inhibitor (Human) (Berinert) 500 Unit Inj 2,000 UNIT IV ASDIRECTED PRN PRN FLARE UP (Reported) Magnesium Citrate (Citrate of Magnesia) 1 Tasha Tasha 300 ML PO DAILY PRN PRN CONSTIPATION (Reported) Oxycodone Hcl (Oxycodone HCl) 30 Mg Tab 30 MG PO Q4H PRN PRN PAIN (Reported) Penciclovir (Denavir) 1 Dose/5 Gm Cream 1 DOSE TOP DAILY PRN PRN COLD SORE ( Reported) APPLIED TO LIPS Promethazine HCl (Promethazine HCl) 25 Mg Tab 25 MG PO BID PRN PRN NAUSEA ( Reported) Senna (Senna-Lax) 8.6 Mg Tab 1 TAB PO PRN CONSTIPATION (Reported) Suvorexant (Belsomra) 20 Mg Tab 20 MG PO QHS PRN PRN SLEEP (Reported) Tizanidine Hydrochloride (Tizanidine HCl) 4 Mg Cap 4 MG PO TID PRN PRN MUSCLE SPASMS (Reported) Triamcinolone Acet (Triamcinolone Acetonide 0.1% Crm) 1 Dose/15 Gm Cr 1 DOSE TOP BID PRN PRN RASH (Reported) APPLY TO AFFECTED AREAS (PSORIASIS) Allergies Coded Allergies: Aspirin (Verified Allergy, Severe, TRIGGERS ANGIOEDEMA, 08/23/12) Codeine (Verified Allergy, Severe, EXACERBATES ANGIOEDEMA, 08/23/12) Ketorolac (Verified Allergy, Intermediate, HIVES, 05/16/16) PT HAS TAKEN IBUPROFEN IN THE PAST WITHOUT ANY ISSUES Penicillins (Verified Allergy, Intermediate, HIVES, RASH, 08/23/12) HIVES, WORSENS ANGIOEDEMA Pentazocine (Verified Adverse Reaction, Severe, HALLUCINATIONS, 08/23/12) Prochlorperazine (Verified Adverse Reaction, Severe, SEVERE ANXIETY, ) Gabapentin (Verified Adverse Reaction, Intermediate, CONFUSION, 08/23/12) Pregabalin (Verified Adverse Reaction, Intermediate, CONFUSION, 08/23/12) Morphine (Verified Adverse Reaction, Mild, HEADACHES,CONFUSION, 08/23/12) Ondansetron (Verified Adverse Reaction, Mild, CONFUSION, 08/23/12) Past Medical History Medical History 1 congested tortuous biliary duct status post stent placement in 06/10/2016 2. Congenital C1 esterase inhibitor deficiency 3. Congenital angioedema. 4. Neuropathy. 5. History of hypertension history of hepatitis B and C history of left breast cancer history of osteoporosis history of degenerative disc disease 6. Chronic pain requiring long time opiates Social History Social History Denies tobacco alcohol or illicit substance use. Lives alone. Psychosocial History: Depression Review of Systems Subjective Constitutional: Reports: fatigue, nausea with pain Skin: Denies: breakdown, lesions, rash Pulmonary: Denies: cough, dyspnea Cardiovascular: Denies: chest pain, palpitations Gastrointestinal: Reports: abdominal pain, constipation, Denies: loss of bowel control Genitourinary: Denies: dysuria, hematuria, loss of bladder control Hematologic: Reports: anemia (chronic) Musculoskeletal: Reports: midthoracic pain Physical Examination Physical Examination Vital Signs/I&O Vital Signs Date Time Temp Pulse Resp B/P Pulse Ox O2 Delivery O2 Flow Rate FiO2 07/20/16 16:01 18 Room Air 07/20/16 14:00 98.7 77 133/70 97 I&O- Last 24 Hours up to 6 AM 07/20/16 06:00 Intake Total 720 ml Output Total 1600 ml Balance -880 ml Recent Travel/Sick Contacts: Denies: Recent sick contacts, Recent travel General Exam: Positive: other (sleep he arouses to verbal stimuli) ENT EXAM: Positive: other (edema noted of lips and eyelids and sclera) Neck Exam: Positive: Other (tracheostomy in place no drainage) Chest Exam: Positive: Clear to auscultation, Other (no wheezes rales or rhonchi somewhat decreased at the bases) Heart Exam: Positive: Normal S1, S2, Regular rate and rhythm Abdominal Exam: Positive: Nondistended, Normal bowel sounds, Other (some tenderness noted with palpation in the epigastric region), Soft Skin Exam: Positive: Dry, Other Symptoms (very pale), Warm Neuro Exam: Positive: Cranial Nerves 3-12 NL, Other (sleepy moves all extremities) Psych Exam: Positive: Other (recognizes this health science writer by name. Alert and oriented 3.) Laboratory Data Labs 24H Laboratory Tests 2 07/20/16 06:09: Blood Urea Nitrogen 9, Creatinine 0.55, Sodium Level 142, Potassium Level 4.1#, Chloride Level 106, Carbon Dioxide Level 29, Calcium Level 8.4L, Aspartate Amino Transf (AST/SGOT) 34, Alanine Aminotransferase (ALT/SGPT) 28, Alkaline Phosphatase 302H, Total Bilirubin 0.4, Total Protein 6.6, Albumin 3.0L, Albumin/ Globulin Ratio 0.83L, Anion Gap 7L, White Blood Count 4.1, Red Blood Count 3.04L , Hemoglobin 8.7L, Hematocrit 26.1L, Mean Corpuscular Volume 85.7, Mean Corpuscular Hemoglobin 28.5, Mean Corpuscular Hemoglobin Concent 33.2, Red Cell Distribution Width 14.2, Platelet Count 139L, Neutrophils (%) (Auto) 44.5, Lymphocytes (%) (Auto) 48.7H, Monocytes (%) (Auto) 2.6, Eosinophils (%) (Auto) 1.8, Basophils (%) (Auto) 0.3, Neutrophils # (Auto) 1.8, Lymphocytes # (Auto) 2.0, Monocytes # (Auto) 0.1, Eosinophils # (Auto) 0.1, Basophils # (Auto) 0.0, C -Reactive Protein, Quantitative 0.77H, Glomerular Filtration Rate > 60.0, Large Unclassified Cells # 0.1, Large Unclassified Cells % 2.0 CBC/BMP Laboratory Tests 07/20/16 06:09 Calcium Level 8.4 L, Aspartate Amino Transf (AST/SGOT) 34, Alanine Aminotransferase (ALT/SGPT) 28, Alkaline Phosphatase 302 H, Total Bilirubin 0.4 , Total Protein 6.6, Albumin 3.0 L, Red Blood Count 3.04 L, Mean Corpuscular Volume 85.7, Mean Corpuscular Hemoglobin 28.5, Mean Corpuscular Hemoglobin Concent 33.2, Red Cell Distribution Width 14.2, Neutrophils (%) (Auto) 44.5, Lymphocytes (%) (Auto) 48.7 H, Monocytes (%) (Auto) 2.6, Eosinophils (%) (Auto) 1.8, Basophils (%) (Auto) 0.3, Neutrophils # (Auto) 1.8, Lymphocytes # (Auto) 2.0, Monocytes # (Auto) 0.1, Eosinophils # (Auto) 0.1, Basophils # (Auto) 0.0 Assessment 1. Acute on chronic abdominal pain. 2. C1 esterase inhibitor and congenital angioedema. Patient remains on Berinert but this has not brought the pain under control at this time. 3. Chronic generalized pain with most recent episode of abdominal pain managed with oxycodone ER and oxycodone IR Recommendation and Plan Recommendation and plan: At this time Maribell states that she is fairly comfortable but she is somewhat sleepy. Would have her continue with the Dilaudid as currently ordered. As the acute pain and wanes would wean the Dilaudid and continue her chest with the oxycodone IR and ER which she is managed with at home. Her chronic pain medications are managed by Dr. Roque and I would look to make no changes without his express input. Thank you Dr. Gillespie for allowing us to participate in the care of your patient Maribell Herrera. Should you have any questions we'll be glad to discuss this with you at any time please contact us here at the pain center at [phone]. I will look to check in on Maribell tomorrow. Lainey Panchal CASE MONITOR Jul 20, 2016 16:57
[2016-07-20 22:00] VITALS: BP 156/81
[2016-07-20] MEDS ORDERED: ALBUTEROL SULFATE 2.5 MG/0.5 ML INH NEB SOLN NEB PRN (22:45)
[2016-07-21] MEDS: ACETAMINOPHEN TAB 650MG DOSE (2X325MG) PO PRN ×2 (00:47→20:23)
[2016-07-21] MEDS: oxyCODONE 5MG TAB PO PRN ×4 (00:48→22:55)
[2016-07-21] MEDS: KCL 40MEQ IN D5/NS 1000ML 1,000 ML IV SCH ×2 (01:47→18:45)
[2016-07-21 06:00] VITALS: BP 139/69
[2016-07-21 06:13] LABS: BASO % 0.5 % (0.0-1.0); EOS # 0.1 K/mm3 (0.0-0.50); EOS % 1.5 % (0.0-3.0); LARGE UNSTAINED CELL # 0.1 K/mm3 (0.0-0.4); LARGE UNSTAINED CELL % 2.1 % (0.0-4.0); LYMPH # 1.5 K/mm3 (1.5-4.5); LYMPH % 41.1 % (24.0-44.0); MEAN CORPUSCULAR HEMOGLOBIN 28.5 pg (27.0-33.0); MEAN CORPUSCULAR HGB CONC 33.2 g/dl (32.0-36.5); MEAN CORPUSCULAR VOLUME 85.8 fl (80.0-96.0); MONO # 0.2 K/mm3 (0.0-0.8); MONO % 4.2 % (0.0-5.0); NEUTROPHILS # 1.9 K/mm3 (1.8-7.7); NEUTROPHILS % 50.5 % (36.0-66.0); PLATELET COUNT, AUTOMATED 126 k/mm3 (150-450); RED CELL DISTRIBUTION WIDTH 14.2 % (11.5-14.5); WHITE BLOOD COUNT 3.7 K/mm3 (4.0-10.0)
[2016-07-21 06:41] LABS: ALBUMIN 2.7 GM/DL (3.2-5.2); ALBUMIN/GLOBULIN RATIO 0.71 (1.00-1.93); ALKALINE PHOSPHATASE 256 U/L (45-117); ALT/SGPT 20 U/L (12-78); ANION GAP 7 MEQ/L (8-16); AST/SGOT 24 U/L (15-37); BILIRUBIN,TOTAL 0.4 MG/DL (0.2-1.0); BLOOD UREA NITROGEN 9 MG/DL (7-18); CALCIUM LEVEL 8.5 MG/DL (8.5-10.1); CARBON DIOXIDE LEVEL 29 MEQ/L (21-32); CHLORIDE LEVEL 107 MEQ/L (98-107); CREATININE FOR GFR 0.44 MG/DL (0.55-1.02); GLOMERULAR FILTRATION RATE > 60.0 (>51); GLUCOSE, FASTING 90 MG/DL (70-105); POTASSIUM SERUM 3.8 MEQ/L (3.5-5.1); SODIUM LEVEL 143 MEQ/L (136-145); TOTAL PROTEIN 6.5 GM/DL (6.4-8.2)
[2016-07-21 09:43] VITALS: BP 125/74
[2016-07-21] MEDS: clonazePAM 1 MG TAB PO SCH ×3 (09:52→20:23)
[2016-07-21] MEDS: DULoxetine 30 MG CAP (CYMBALTA) PO SCH (09:52)
[2016-07-21] MEDS: ENOXAPARIN 40 MG/0.4 ML SYRINGE (J1650) SC SCH (09:52)
[2016-07-21] MEDS: ATENOLOL 50 MG TAB PO SCH ×2 (09:53→20:24)
[2016-07-21] MEDS: oxyCODONE 40 MG CR TAB PO SCH ×2 (09:55→20:24)
[2016-07-21] MEDS: PANTOPRAZOLE 40MG INJ (PROTONIX) (C9113) IV SCH (09:56)
[2016-07-21] MEDS: DOCUSATE SODIUM 100 MG CAP PO SCH ×2 (10:16→20:23)
[2016-07-21] MEDS: MIRALAX *UNIT DOSE* 17GM PACKET PO SCH (10:16)
--- NOTE | 2016-07-21 11:54 | IPN ---
DATE: 07/21/2016 55-year-old female seen at bedside. She feels that her abdominal pain is about the same, but she also feels that she could try advancing her diet today. She denies any nausea or vomiting. Abdominal pain is about a 4/10 currently. She has not had a bowel movement for a few days and will try to make some adjustments in her bowel regimen. She was seen by pain management yesterday which recommended trying to get her back to her regular home dosing of long-acting narcotics and she has not had to use any of her Berinert for her angioedema. OBJECTIVE: Temperature is 97.4, pulse 68, respiratory rate 19, blood pressure (BP) 139/69, SPO2 is 95% on room air. General: The patient appears to be in no acute distress. She is alert and oriented, pleasant talk to. HEENT: Head is atraumatic, normocephalic. Throat is clear. She does have a tracheostomy present which is patent. Lungs: Clear to auscultation. Heart: Regular rate and rhythm. Abdomen: Soft. She did have some vague upper abdominal tenderness with no rebound and normoactive bowel sounds. Extremities: No edema. No calf tenderness. LABORATORY DATA: White count 3.7, hemoglobin 8.5 and platelets are 126,000. Sodium 143, potassium 3.8, chloride 107, bicarb 29, anion gap 7, BUN is 9, creatinine 0.44, glucose is 90, total bilirubin 0.4, alkaline phosphatase 256 down from 302, AST is 24, ALT is 20, albumin is 2.7. She had a MRCP of the abdomen yesterday that did show limited study. Dilated main pancreatic duct, no biliary ductal dilation was observed. ASSESSMENT/PLAN: 1. Acute on chronic abdominal pain status post extra biliary duct stent placement by Dr. Parra. She remains afebrile without leukocytosis. Will attempt to gradually increase her diet starting with clear liquids this morning and advance as tolerated. Concerning her pain medications, will discontinue the Dilaudid and continue her on with her regular oral dosing. We did adjust bowel regimen today as well. 2. C1 esterase inhibitor deficiency. She does have Berinert available at bedside and she should followup with Dr. Roca for her C1 esterase inhibitor deficiency. 3. Hepatitis B and hepatitis C, stable, Not currently on any therapy. She can followup outpatient with infectious disease at a later date. I will defer this to her primary care provider. 4. Hypertension. Continue on atenolol. Amlodipine and hydrochlorothiazide has been held and will resume once she has resumed a full diet. 5. Anxiety. Continue with clonazepam. 6. Neuropathy. Continue on Cymbalta. 7. Deep vein thrombosis (DVT) prophylaxis, on Lovenox. DISPOSITION: I do have several concerns with this patient that she does have issues with ongoing chronic abdominal pain and has had some issues with pain management in the past. Will continue to try to manage her pain as adequately as possible to try to get her to some degree of her baseline. However, from a hemodynamic standpoint she appears to be stable. She does not show any signs of obstruction. Her labs do appear to be fine. Will try to make sure that Dr. Parra is aware that she is in the hospital and likely attempt discharge tomorrow if she is tolerating her diet and she remains afebrile. She should have appropriate followup with GI as well as immunology. Again, I will defer any followup for outpatient infectious disease to her primary care provider.
[2016-07-21] MEDS ORDERED: MAGNESIUM CITRATE 300 ML BTL PO ONE (13:00)
[2016-07-21 14:00] VITALS: BP 158/84
--- NOTE | 2016-07-21 15:19 | EDDOCDS ---
Physician Documentation [facility] Name: Maribell Herrera Age: 55 yrs Sex: Female : 1960 Arrival Date: 07/19/2016 Time: 07:36 Bed 17 Private MD: Disposition: 07/19/16 12:29 Hospitalization ordered by Dena Huerta for Inpatient Admission. Preliminary diagnosis are Generalized abdominal pain - Pneumobilia, Anemia, unspecified. - Bed requested for 4 [place]. - Status is Inpatient Admission. hs1 - Condition is Stable. - Problem is new. - Symptoms are unchanged. Historical: - Allergies: Aspirin; Codeine Sulfate; GABAPENTIN; Morphine; PENICILLINS; PENTAZOCINE; pregabalin; Prochlorperazine Maleate; Toradol; - Home Meds: 1. amlodipine 10 mg Oral tab 1 tab once daily 2. atenolol 50 mg Oral tab 1 tab once daily 3. Belsomra 20 mg oral tab 1 tab nightly 4. Berinert 500 unit (10 mL) intravenous kit 2000 units as needed (Last dose: 07/19/2016 04:30) 5. calcium carbonate 500 mg calcium (1,250 mg) Oral chew daily 6. cetirizine 10 mg oral tab 1 tab once daily 7. clonazepam 2 mg Oral tab 1 tab 3 times per day (Last dose: 07/18/2016) 8. Colace 100 mg oral cap 1 cap three times a day 9. Cymbalta 30 mg Oral cpDR 1 cap 2 times per day 10. ferrous sulfate 325 mg (65 mg iron) Oral tab as needed 11. hydrochlorothiazide 50 mg Oral tab 1 tab once daily 12. Klor-Con 10 10 mEq Oral TbER 1 tab 2 times per day 13. magnesium oxide 400 mg Oral tab daily 14. Miralax 17 gram Oral pwpk 1 packet as needed 15. Mirapex 0.25 mg Oral tab 1 tab daily 16. oxycodone 15 mg Oral Tb12 1 tab every 4 hours as needed (Last dose: 07/19/2016 04:30) 17. OxyContin 40 mg Oral TR12 1 tab every 12 hours (Last dose: 07/18/2016) 18. pramipexole 0.125 mg oral tab nightly 19. Prilosec 40 mg Oral cpDR 1 cap once daily 20. promethazine 25 mg Oral tab 1 tab twice daily as needed as needed - PMHx: angioedema; Cancer, Breast - Left; Degenerative disc disease; Hepatitis B; Hepatitis C; Hypertension; neuropathy; Osteoporosis; - PSHx: Cholecystectomy; Mastectomy- Left; Appendectomy; Orthopedic Surgery; Infusa port insertion; Tracheostomy; - Social history: Smoking status: Patient states former smoker of tobacco. No barriers to communication noted, The patient speaks fluent Kiswahili, Speaks appropriately for age. - Family history: Not pertinent. - : The pt / caregiver states he / she is not on anticoagulants. Home medication list is obtained from a discharge med list. - Exposure Risk Screening:: None identified. Vital Signs: 07/19 07:45 BP 145 / 80 LA Sitting (auto/reg); Pulse 75; Resp 18; Temp 98.9(TE); Pulse Ox 100% on jrd R/A; Weight 65.77 kg / 145 lbs (R); Height 5 ft. 0 in. (152.40 cm); Pain 9/10; 08:32 BP 111 / 64; Pulse 71; Resp 18; Pulse Ox 94% ; Pain 9/10; hs1 10:15 Pulse Ox 82% ; hs1 10:15 BP 107 / 65; Pulse 71; Pulse Ox 92% ; Pain 8/10; hs1 10:16 BP 107 / 65 (auto/); Pulse 72; Resp 18; hs1 11:08 Pulse Ox 89% ; hs1 11:08 BP 122 / 64 (auto/); Pulse 71; hs1 11:21 Pulse Ox 94% ; hs1 12:11 BP 119 / 79; Pulse 75; Resp 20; Temp 99.1(TE); Pulse Ox 95% on R/A; rn1 12:36 Pulse Ox 88% ; hs1 12:36 BP 122 / 86 (auto/); Pulse 73; Resp 20; hs1 13:53 BP 120 / 68 (auto/); Pulse 72; Resp 18; Temp 98.7(O); Pulse Ox 96% ; Pain 8/10; hs1 07:45 Body Mass Index 28.32 (65.77 kg, 152.40 cm) jrd MDM: 07:38 CBC with Diff Ordered. EDMS 07:38 BMP Ordered. EDMS 07:38 Liver Profile Ordered. EDMS 07:38 Lipase Ordered. EDMS 08:01 Dilaudid - HYDROmorphone 1 mg IVP once ordered. br1 08:01 NS 0.9% 1000 ml IV at 150 mL/hr continuous ordered. br1 08:01 Ondansetron 4 mg IVP once ordered. br1 08:04 Misc. Nursing Order ordered. br1 08:06 Urinalysis Ordered. EDMS 08:06 Urine Culture Ordered. EDMS 08:40 Financial registration complete. mm15 08:41 [facility] Payment Agreement was scanned into [employer] and attached to record. mm15 08:45 CBC with Diff Reviewed. br1 08:46 CT ABD & PELVIS: IV and Oral Contrast Ordered. EDMS 08:52 BMP Reviewed. br1 08:52 Liver Profile Reviewed. br1 08:52 Lipase Reviewed. br1 08:53 Potassium Chloride Extended Release Tablet 40 mEq PO once ordered. br1 08:58 Dilaudid - HYDROmorphone 1 mg IVP once ordered. br1 09:09 Diatrizoate Meglumine & Sodium Liquid 10 ml PO once; mix in 290cc of water ordered. hs1 09:09 Diatrizoate Meglumine & Sodium Liquid 10 ml PO once; mix in 290cc of water ordered. hs1 12:10 Urinalysis Reviewed. br1 12:16 Dilaudid - HYDROmorphone 1 mg IVP once ordered. br1 12:20 BED REQUEST+ADM ordered. EDMS 12:48 Admission / Observation Status ordered. EDMS 12:48 NPO DIET ordered. EDMS 13:44 T-Sheet-- Draft Copy was scanned into [employer] and attached to record. [facility] Administered Medications: 08:16 Drug: Ondansetron 4 mg [ondansetron HCl 2 mg/mL intravenous solution (2 mL)] Route: jjr IVP; Site: Implantable Access Device; 08:17 Drug: Dilaudid - HYDROmorphone 1 mg [hydromorphone 1 mg/mL injection syringe (1 mL)] jjr Route: IVP; Site: Implantable Access Device; 08:32 Follow up: BP 111 / 64; Pulse 71 bpm; Resp 18 bpm; Pulse Ox 94% ; Pain 9/10 Adult; hs1 Response: No significant change. 08:17 Drug: NS 0.9% 1000 ml [sodium chloride 0.9 % intravenous solution] Route: IV; Rate: 150 jjr mL/hr; Site: Implantable Access Device; 14:19 Follow up: IV Status: Infusion continued upon admit; IV Intake: 800ml hs1 09:08 Drug: Potassium Chloride 40 mEq [potassium chloride ER 10 mEq tablet,extended release hs1 (4 tabs)] Route: PO; 09:08 Drug: Dilaudid - HYDROmorphone 1 mg [hydromorphone 1 mg/mL injection syringe (1 mL)] hs1 Route: IVP; Site: Implantable Access Device; 10:15 Follow up: BP 107 / 65; Pulse 71 bpm; Pulse Ox 92% ; Pain 8/10 Adult; Response: No hs1 significant change. 09:10 Drug: Diatrizoate Meglumine & Sodium 10 ml [diatrizoate meglumine and diat.sodium 66 hs1 %-10 % oral solution (10 mL)] Route: PO; 09:51 Drug: Diatrizoate Meglumine & Sodium 10 ml [diatrizoate meglumine and diat.sodium 66 hs1 %-10 % oral solution (10 mL)] Route: PO; 12:23 Drug: Dilaudid - HYDROmorphone 1 mg [hydromorphone 1 mg/mL injection syringe (1 mL)] hs1 Route: IVP; Site: Implantable Access Device; Signatures: Dispatcher [employer] EDDaryl Moody MD MD br1 Katey August RN RN hs1 Evelia Hester mm15 Carole Layton Jessica RN jjr The chart was reviewed and I authenticate all verbal orders and agree with the evaluation and treatment provided.Corrections: (The following items were deleted from the chart) 08:14 07:38 IV Saline Lock ordered. br1 hs1 Attachments: 08:41 [facility] Payment Agreement mm15 13:44 T-Sheet-- Draft Copy [facility] Chart Complete MTDD
--- NOTE | 2016-07-21 15:19 | EDDOCDS ---
Physician Documentation [facility] Name: Maribell Herrera Age: 55 yrs Sex: Female : 1960 Arrival Date: 07/19/2016 Time: 07:36 Bed 17 Private MD: Disposition: 07/19/16 12:29 Hospitalization ordered by Dena Huerta for Inpatient Admission. Preliminary diagnosis are Generalized abdominal pain - Pneumobilia, Anemia, unspecified. - Bed requested for 4 [place]. - Status is Inpatient Admission. hs1 - Condition is Stable. - Problem is new. - Symptoms are unchanged. Historical: - Allergies: Aspirin; Codeine Sulfate; GABAPENTIN; Morphine; PENICILLINS; PENTAZOCINE; pregabalin; Prochlorperazine Maleate; Toradol; - Home Meds: 1. amlodipine 10 mg Oral tab 1 tab once daily 2. atenolol 50 mg Oral tab 1 tab once daily 3. Belsomra 20 mg oral tab 1 tab nightly 4. Berinert 500 unit (10 mL) intravenous kit 2000 units as needed (Last dose: 07/19/2016 04:30) 5. calcium carbonate 500 mg calcium (1,250 mg) Oral chew daily 6. cetirizine 10 mg oral tab 1 tab once daily 7. clonazepam 2 mg Oral tab 1 tab 3 times per day (Last dose: 07/18/2016) 8. Colace 100 mg oral cap 1 cap three times a day 9. Cymbalta 30 mg Oral cpDR 1 cap 2 times per day 10. ferrous sulfate 325 mg (65 mg iron) Oral tab as needed 11. hydrochlorothiazide 50 mg Oral tab 1 tab once daily 12. Klor-Con 10 10 mEq Oral TbER 1 tab 2 times per day 13. magnesium oxide 400 mg Oral tab daily 14. Miralax 17 gram Oral pwpk 1 packet as needed 15. Mirapex 0.25 mg Oral tab 1 tab daily 16. oxycodone 15 mg Oral Tb12 1 tab every 4 hours as needed (Last dose: 07/19/2016 04:30) 17. OxyContin 40 mg Oral TR12 1 tab every 12 hours (Last dose: 07/18/2016) 18. pramipexole 0.125 mg oral tab nightly 19. Prilosec 40 mg Oral cpDR 1 cap once daily 20. promethazine 25 mg Oral tab 1 tab twice daily as needed as needed - PMHx: angioedema; Cancer, Breast - Left; Degenerative disc disease; Hepatitis B; Hepatitis C; Hypertension; neuropathy; Osteoporosis; - PSHx: Cholecystectomy; Mastectomy- Left; Appendectomy; Orthopedic Surgery; Infusa port insertion; Tracheostomy; - Social history: Smoking status: Patient states former smoker of tobacco. No barriers to communication noted, The patient speaks fluent Uzbek, Speaks appropriately for age. - Family history: Not pertinent. - : The pt / caregiver states he / she is not on anticoagulants. Home medication list is obtained from a discharge med list. - Exposure Risk Screening:: None identified. Vital Signs: 07/19 07:45 BP 145 / 80 LA Sitting (auto/reg); Pulse 75; Resp 18; Temp 98.9(TE); Pulse Ox 100% on jrd R/A; Weight 65.77 kg / 145 lbs (R); Height 5 ft. 0 in. (152.40 cm); Pain 9/10; 08:32 BP 111 / 64; Pulse 71; Resp 18; Pulse Ox 94% ; Pain 9/10; hs1 10:15 Pulse Ox 82% ; hs1 10:15 BP 107 / 65; Pulse 71; Pulse Ox 92% ; Pain 8/10; hs1 10:16 BP 107 / 65 (auto/); Pulse 72; Resp 18; hs1 11:08 Pulse Ox 89% ; hs1 11:08 BP 122 / 64 (auto/); Pulse 71; hs1 11:21 Pulse Ox 94% ; hs1 12:11 BP 119 / 79; Pulse 75; Resp 20; Temp 99.1(TE); Pulse Ox 95% on R/A; rn1 12:36 Pulse Ox 88% ; hs1 12:36 BP 122 / 86 (auto/); Pulse 73; Resp 20; hs1 13:53 BP 120 / 68 (auto/); Pulse 72; Resp 18; Temp 98.7(O); Pulse Ox 96% ; Pain 8/10; hs1 07:45 Body Mass Index 28.32 (65.77 kg, 152.40 cm) jrd MDM: 07:38 CBC with Diff Ordered. EDMS 07:38 BMP Ordered. EDMS 07:38 Liver Profile Ordered. EDMS 07:38 Lipase Ordered. EDMS 08:01 Dilaudid - HYDROmorphone 1 mg IVP once ordered. br1 08:01 NS 0.9% 1000 ml IV at 150 mL/hr continuous ordered. br1 08:01 Ondansetron 4 mg IVP once ordered. br1 08:04 Misc. Nursing Order ordered. br1 08:06 Urinalysis Ordered. EDMS 08:06 Urine Culture Ordered. EDMS 08:40 Financial registration complete. mm15 08:41 ON LICENSE OF [facility] Payment Agreement was scanned into [employer] and attached to record. mm15 08:45 CBC with Diff Reviewed. br1 08:46 CT ABD & PELVIS: IV and Oral Contrast Ordered. EDMS 08:52 BMP Reviewed. br1 08:52 Liver Profile Reviewed. br1 08:52 Lipase Reviewed. br1 08:53 Potassium Chloride Extended Release Tablet 40 mEq PO once ordered. br1 08:58 Dilaudid - HYDROmorphone 1 mg IVP once ordered. br1 09:09 Diatrizoate Meglumine & Sodium Liquid 10 ml PO once; mix in 290cc of water ordered. hs1 09:09 Diatrizoate Meglumine & Sodium Liquid 10 ml PO once; mix in 290cc of water ordered. hs1 12:10 Urinalysis Reviewed. br1 12:16 Dilaudid - HYDROmorphone 1 mg IVP once ordered. br1 12:20 BED REQUEST+ADM ordered. EDMS 12:48 Admission / Observation Status ordered. EDMS 12:48 NPO DIET ordered. EDMS 13:44 T-Sheet-- Draft Copy was scanned into [employer] and attached to record. [facility] Administered Medications: 08:16 Drug: Ondansetron 4 mg [ondansetron HCl 2 mg/mL intravenous solution (2 mL)] Route: jjr IVP; Site: Implantable Access Device; 08:17 Drug: Dilaudid - HYDROmorphone 1 mg [hydromorphone 1 mg/mL injection syringe (1 mL)] jjr Route: IVP; Site: Implantable Access Device; 08:32 Follow up: BP 111 / 64; Pulse 71 bpm; Resp 18 bpm; Pulse Ox 94% ; Pain 9/10 Adult; hs1 Response: No significant change. 08:17 Drug: NS 0.9% 1000 ml [sodium chloride 0.9 % intravenous solution] Route: IV; Rate: 150 jjr mL/hr; Site: Implantable Access Device; 14:19 Follow up: IV Status: Infusion continued upon admit; IV Intake: 800ml hs1 09:08 Drug: Potassium Chloride 40 mEq [potassium chloride ER 10 mEq tablet,extended release hs1 (4 tabs)] Route: PO; 09:08 Drug: Dilaudid - HYDROmorphone 1 mg [hydromorphone 1 mg/mL injection syringe (1 mL)] hs1 Route: IVP; Site: Implantable Access Device; 10:15 Follow up: BP 107 / 65; Pulse 71 bpm; Pulse Ox 92% ; Pain 8/10 Adult; Response: No hs1 significant change. 09:10 Drug: Diatrizoate Meglumine & Sodium 10 ml [diatrizoate meglumine and diat.sodium 66 hs1 %-10 % oral solution (10 mL)] Route: PO; 09:51 Drug: Diatrizoate Meglumine & Sodium 10 ml [diatrizoate meglumine and diat.sodium 66 hs1 %-10 % oral solution (10 mL)] Route: PO; 12:23 Drug: Dilaudid - HYDROmorphone 1 mg [hydromorphone 1 mg/mL injection syringe (1 mL)] hs1 Route: IVP; Site: Implantable Access Device; Signatures: Dispatcher [employer] EDDaryl Moody MD MD br1 Katey August RN RN hs1 Evelia Hesetr mm15 Carole Layton Jessica RN jjr The chart was reviewed and I authenticate all verbal orders and agree with the evaluation and treatment provided.Corrections: (The following items were deleted from the chart) 08:14 07:38 IV Saline Lock ordered. br1 hs1 Attachments: 08:41 [facility] Payment Agreement mm15 13:44 T-Sheet-- Draft Copy [facility] Chart Complete MTDD
--- NOTE | 2016-07-21 15:20 | EDDOCDS ---
Nurse's Notes [facility] Name: Maribell Herrera Age: 55 yrs Sex: Female : 1960 Arrival Date: 07/19/2016 Time: 07:36 Bed 17 Private MD: Diagnosis: Generalized abdominal pain-Pneumobilia;Anemia, unspecified Presentation: 07/19 07:39 Presenting complaint: EMS states: abdominal pains. Patient had gallbladder removed in hs1 April and has history of angio edema. Patient states feels different than her angioedema flare up's. Patient states pain and warps around to back. Adult Sepsis Screening: The patient does not have new or worsening altered mentation. Patient's respiratory rate is less than 22. Systolic blood pressure is greater than 100. Patient has a qSOFA score of 0- Negative Sepsis Screen. Suicide/Homicide risk assessment- the patient denies having any suicidal and/or homicidal ideations and does not present with any other emotional, behavioral or mental health complaints. Status: Patient is not a web services professional or dependent. Transition of care: patient was not received from another setting of care. 07:39 Acuity: ADIS Level 3 hs1 07:39 Method Of Arrival: Ambulance hs1 Triage Assessment: 07:46 General: Appears in no apparent distress, Behavior is cooperative. Pain: Location: all hs1 over Pain currently is 9 out of 10 on a pain scale. HIV screening NA for this visit Offered previously. GI: Abdomen is distended. Historical: - Allergies: Aspirin; Codeine Sulfate; GABAPENTIN; Morphine; PENICILLINS; PENTAZOCINE; pregabalin; Prochlorperazine Maleate; Toradol; - Home Meds: 1. amlodipine 10 mg Oral tab 1 tab once daily 2. atenolol 50 mg Oral tab 1 tab once daily 3. Belsomra 20 mg oral tab 1 tab nightly 4. Berinert 500 unit (10 mL) intravenous kit 2000 units as needed (Last dose: 07/19/2016 04:30) 5. calcium carbonate 500 mg calcium (1,250 mg) Oral chew daily 6. cetirizine 10 mg oral tab 1 tab once daily 7. clonazepam 2 mg Oral tab 1 tab 3 times per day (Last dose: 07/18/2016) 8. Colace 100 mg oral cap 1 cap three times a day 9. Cymbalta 30 mg Oral cpDR 1 cap 2 times per day 10. ferrous sulfate 325 mg (65 mg iron) Oral tab as needed 11. hydrochlorothiazide 50 mg Oral tab 1 tab once daily 12. Klor-Con 10 10 mEq Oral TbER 1 tab 2 times per day 13. magnesium oxide 400 mg Oral tab daily 14. Miralax 17 gram Oral pwpk 1 packet as needed 15. Mirapex 0.25 mg Oral tab 1 tab daily 16. oxycodone 15 mg Oral Tb12 1 tab every 4 hours as needed (Last dose: 07/19/2016 04:30) 17. OxyContin 40 mg Oral TR12 1 tab every 12 hours (Last dose: 07/18/2016) 18. pramipexole 0.125 mg oral tab nightly 19. Prilosec 40 mg Oral cpDR 1 cap once daily 20. promethazine 25 mg Oral tab 1 tab twice daily as needed as needed - PMHx: angioedema; Cancer, Breast - Left; Degenerative disc disease; Hepatitis B; Hepatitis C; Hypertension; neuropathy; Osteoporosis; - PSHx: Cholecystectomy; Mastectomy- Left; Appendectomy; Orthopedic Surgery; Infusa port insertion; Tracheostomy; - Social history: Smoking status: Patient states former smoker of tobacco. No barriers to communication noted, The patient speaks fluent [place], Speaks appropriately for age. - Family history: Not pertinent. - : The pt / caregiver states he / she is not on anticoagulants. Home medication list is obtained from a discharge med list. - Exposure Risk Screening:: None identified. Screenin:15 Screening information is obtained from the patient. Fall risk: No risks identified. hs1 Assistance ADL's: Requires assistance with meal preparation, this assistance is provided by ambulation, assistance is provided by housework, assistance is provided by medication administration, assistance is provided by home health aides. Abuse/DV Screen: The patient / caregiver reports he/she is: not in a situation that causes fear, pain or injury. Nutritional screening: No deficits noted. home support is adequate. 14:11 Advance Directives: Currently, there is a health care proxy, There is a living will, hs1 and a copy is available at this time. Assessment: 01:45 General: Appears in no apparent distress, Behavior is cooperative, fussy. Pain: hs1 Location: abdomen Pain currently is 8 out of 10 on a pain scale. Neurological: No deficits noted. Respiratory: No deficits noted. Airway is patent via trache Respiratory effort is even, unlabored, Respiratory pattern is regular, symmetrical. Derm: Skin is pink, warm & dry. normal. 08:21 General: Appears in no apparent distress, Behavior is appropriate for age, cooperative. hs1 General: Behavior is fussy. Pain: The patient reports he/she is under the care of a painter plate and has a current pain contract. Location: abdomen Pain currently is 9 out of 10 on a pain scale. Quality of pain is described as aching. Neurological: Level of Consciousness is awake, alert, obeys commands. Respiratory: No deficits noted. GI: Abdomen is obese, Bowel sounds present X 4 quads. Abd is soft and non tender X 4 quads. Derm: Skin is pink, warm & dry. normal. 09:10 Reassessment: Patient appears in no apparent distress at this time. Patient states hs1 symptoms have not improved. patient aware of needing CT. Patient drinking Gastrografin at present. Medications administered per orders at this time. Patient still moaning and fussy whenever staff interacts with patient. . 10:25 General: Pt continuing to moan and is still complaining of pain 7/10 states pain has hs1 not decreased. Patient aware of needing peripheral line and states very hard stick. Patient states when she is uncomfortable she will ask us to stop. MD aware. . 11:12 General: Appears Behavior is fussy, patient finished with commode and urine sample sent hs1 up by MARKETING LEAD. Patient still complaining of abdominal pains 8/10 and is not asking for fentanyl. Patient aware of needing IV still and letting 1 more nurse try. . 12:23 General: Appears in no apparent distress, Behavior is fussy. Pain: Location: abdomen hs1 Pain currently is 8 out of 10 on a pain scale. Respiratory: Airway is patent Respiratory effort is even, unlabored, Respiratory pattern is regular, symmetrical. Derm: Skin is pink, warm & dry. normal. Vital Signs: 07:45 BP 145 / 80 LA Sitting (auto/reg); Pulse 75; Resp 18; Temp 98.9(TE); Pulse Ox 100% on jrd R/A; Weight 65.77 kg (R); Height 5 ft. 0 in. (152.40 cm); Pain 9/10; 08:32 BP 111 / 64; Pulse 71; Resp 18; Pulse Ox 94% ; Pain 9/10; hs1 10:15 Pulse Ox 82% ; hs1 10:15 BP 107 / 65; Pulse 71; Pulse Ox 92% ; Pain 8/10; hs1 10:16 BP 107 / 65 (auto/); Pulse 72; Resp 18; hs1 11:08 Pulse Ox 89% ; hs1 11:08 BP 122 / 64 (auto/); Pulse 71; hs1 11:21 Pulse Ox 94% ; hs1 12:11 BP 119 / 79; Pulse 75; Resp 20; Temp 99.1(TE); Pulse Ox 95% on R/A; rn1 12:36 Pulse Ox 88% ; hs1 12:36 BP 122 / 86 (auto/); Pulse 73; Resp 20; hs1 13:53 BP 120 / 68 (auto/); Pulse 72; Resp 18; Temp 98.7(O); Pulse Ox 96% ; Pain 8/10; hs1 07:45 Body Mass Index 28.32 (65.77 kg, 152.40 cm) jrd Vitals: 08:22 Log In Time N/A - ambulance arrival. hs1 ED Course: 07:37 Patient visited by Radha Roca, Order Detailer. deg 07:37 Daryl Miller MD is Attending Physician. br1 07:37 Patient moved to Waiting deg 07:38 Patient moved to 17 dls 07:41 Triage Initiated hs1 07:45 Pt greeted and oriented to ED. Patient advised of names of staff involved in care, jrd location of call paula, wait times and NPO status. Patient has correct armband on for positive identification. Bed in low position. Call light in reach. Side rails up X2. 07:47 Patient visited by Juan Mason PCA. jrd 07:59 Patient visited by Daryl Miller MD. br1 08:14 Lipase Sent. hs1 08:14 Liver Profile Sent. hs1 08:14 BMP Sent. hs1 08:14 CBC with Diff Sent. hs1 08:15 Accessed using accessed w/ # 20 Lala needle, sterile technique, per hospital protocol. hs1 InfusaPort in patient's anterior aspect of right upper chest. Clean & dry. Dressing intact. Good blood return. Flushes easily. . Labs drawn. (by ED staff). Sent per order to lab. 08:22 The patient / caregiver is instructed regarding the plan of care and ED course. hs1 08:30 Patient visited by Katey August RN. hs1 08:41 [facility] Payment Agreement was scanned into [employer] and attached to record. mm15 09:10 Patient visited by Katey August RN. hs1 09:49 Patient visited by Katey August RN. hs1 10:39 Patient visited by Katey August RN. hs1 11:06 Urine Culture Sent. rn1 11:06 Urinalysis Sent. rn1 11:11 Patient visited by Katey August RN. hs1 11:32 Inserted saline lock: 22 gauge in right forearm The patient tolerated the procedure dy well. 12:15 Patient visited by Mike Velasquez. jm 12:29 Dena Huerta is Hospitalizing Provider. br1 12:31 CT ABD & PELVIS: IV and Oral Contrast Returned. EDMS 13:44 T-Sheet-- Draft Copy was scanned into [employer] and attached to record. seh 13:56 No procedures done that require assistance. hs1 13:59 Patient visited by Katey August RN. hs1 Administered Medications: 08:16 Drug: Ondansetron 4 mg [ondansetron HCl 2 mg/mL intravenous solution (2 mL)] Route: jjr IVP; Site: Implantable Access Device; 08:17 Drug: Dilaudid - HYDROmorphone 1 mg [hydromorphone 1 mg/mL injection syringe (1 mL)] jjr Route: IVP; Site: Implantable Access Device; 08:32 Follow up: BP 111 / 64; Pulse 71 bpm; Resp 18 bpm; Pulse Ox 94% ; Pain 9/10 Adult; hs1 Response: No significant change. 08:17 Drug: NS 0.9% 1000 ml [sodium chloride 0.9 % intravenous solution] Route: IV; Rate: 150 jjr mL/hr; Site: Implantable Access Device; 14:19 Follow up: IV Status: Infusion continued upon admit; IV Intake: 800ml hs1 09:08 Drug: Potassium Chloride 40 mEq [potassium chloride ER 10 mEq tablet,extended release hs1 (4 tabs)] Route: PO; 09:08 Drug: Dilaudid - HYDROmorphone 1 mg [hydromorphone 1 mg/mL injection syringe (1 mL)] hs1 Route: IVP; Site: Implantable Access Device; 10:15 Follow up: BP 107 / 65; Pulse 71 bpm; Pulse Ox 92% ; Pain 8/10 Adult; Response: No hs1 significant change. 09:10 Drug: Diatrizoate Meglumine & Sodium 10 ml [diatrizoate meglumine and diat.sodium 66 hs1 %-10 % oral solution (10 mL)] Route: PO; 09:51 Drug: Diatrizoate Meglumine & Sodium 10 ml [diatrizoate meglumine and diat.sodium 66 hs1 %-10 % oral solution (10 mL)] Route: PO; 12:23 Drug: Dilaudid - HYDROmorphone 1 mg [hydromorphone 1 mg/mL injection syringe (1 mL)] hs1 Route: IVP; Site: Implantable Access Device; Intake: 14:19 IV: 800.00ml; Total: 800.00ml. hs1 Order Results: Lab Order: CBC with Diff; SPEC'M 07/19/16 08:11 Test: WHITE BLOOD COUNT; Value: 6.1; Range: 4.0-10.0; Units: K/mm3; Status: F Test: RED BLOOD COUNT; Value: 3.13; Range: 4.00-5.40; Abnormal: Below low normal; Units: M/mm3; Status: F Test: HEMOGLOBIN; Value: 9.0; Range: 12.0-16.0; Abnormal: Below low normal; Units: g/dl; Status: F Test: HEMATOCRIT; Value: 26.6; Range: 36.0-47.0; Abnormal: Below low normal; Units: %; Status: F Test: MEAN CORPUSCULAR VOLUME; Value: 85.1; Range: 80.0-96.0; Units: fl; Status: F Test: MEAN CORPUSCULAR HEMOGLOBIN; Value: 28.9; Range: 27.0-33.0; Units: pg; Status: F Test: MEAN CORPUSCULAR HGB CONC; Value: 33.9; Range: 32.0-36.5; Units: g/dl; Status: F Test: RED CELL DISTRIBUTION WIDTH; Value: 14.3; Range: 11.5-14.5; Units: %; Status: F Test: PLATELET COUNT, AUTOMATED; Value: 141; Range: 150-450; Abnormal: Below low normal; Units: k/mm3; Status: F Test: NEUTROPHILS %; Value: 63.4; Range: 36.0-66.0; Units: %; Status: F Test: LYMPH %; Value: 29.3; Range: 24.0-44.0; Units: %; Status: F Test: MONO %; Value: 3.5; Range: 0.0-5.0; Units: %; Status: F Test: EOS %; Value: 1.6; Range: 0.0-3.0; Units: %; Status: F Test: BASO %; Value: 0.3; Range: 0.0-1.0; Units: %; Status: F Test: LARGE UNSTAINED CELL %; Value: 1.8; Range: 0.0-4.0; Units: %; Status: F Test: NEUTROPHILS #; Value: 3.9; Range: 1.8-7.7; Units: K/mm3; Status: F Test: LYMPH #; Value: 1.9; Range: 1.5-4.5; Units: K/mm3; Status: F Test: MONO #; Value: 0.2; Range: 0.0-0.8; Units: K/mm3; Status: F Test: EOS #; Value: 0.1; Range: 0.0-0.50; Units: K/mm3; Status: F Test: BASO #; Value: 0.0; Range: 0.0-0.2; Units: K/mm3; Status: F Test: LARGE UNSTAINED CELL #; Value: 0.1; Range: 0.0-0.4; Units: K/mm3; Status: F Lab Order: [facility] [place]; SPEC'M 07/19/16 08:11 Test: GLUCOSE, FASTING; Value: 96; Range: 70-105; Units: MG/DL; Status: F Test: BLOOD UREA NITROGEN; Value: 14; Range: 7-18; Units: MG/DL; Status: F Test: CREATININE FOR GFR; Value: 0.61; Range: 0.55-1.02; Units: MG/DL; Status: F Test: GLOMERULAR FILTRATION RATE; Value: > 60.0; Range: >51; Status: F Test: SODIUM LEVEL; Value: 143; Range: 136-145; Units: MEQ/L; Status: F Test: POTASSIUM SERUM; Value: 3.4; Range: 3.5-5.1; Abnormal: Below low normal; Units: MEQ/L; Status: F Test: CHLORIDE LEVEL; Value: 105; Range: 98-107; Units: MEQ/L; Status: F Test: CARBON DIOXIDE LEVEL; Value: 30; Range: 21-32; Units: MEQ/L; Status: F Test: ANION GAP; Value: 8; Range: 8-16; Units: MEQ/L; Status: F Test: CALCIUM LEVEL; Value: 8.6; Range: 8.5-10.1; Units: MG/DL; Status: F Test Note: ; Units are mL/min/1.73 m2 Chronic Kidney Disease Staging per NKF: Stage I & II GFR >=60 Normal to Mildly Decreased Stage III GFR 30-59 Moderately Decreased Stage IV GFR 15-29 Severely Decreased Stage V GFR <15 Very Little GFR Left ESRD GFR <15 on RATING CLERK Lab Order: Liver Profile; MOISES 07/19/16 08:11 Test: AST/SGOT; Value: 80; Range: 15-37; Abnormal: Above high normal; Units: U/L; Status: F Test: ALT/SGPT; Value: 38; Range: 12-78; Units: U/L; Status: F Test: ALKALINE PHOSPHATASE; Value: 404; Range: 45-117; Abnormal: Above high normal; Units: U/L; Status: F Test: BILIRUBIN,TOTAL; Value: 0.5; Range: 0.2-1.0; Units: MG/DL; Status: F Test: BILIRUBIN,DIRECT; Value: 0.3; Range: 0.0-0.2; Abnormal: Above high normal; Units: MG/DL; Status: F Test: TOTAL PROTEIN; Value: 7.2; Range: 6.4-8.2; Units: GM/DL; Status: F Test: ALBUMIN; Value: 3.1; Range: 3.2-5.2; Abnormal: Below low normal; Units: GM/DL; Status: F Test: ALBUMIN/GLOBULIN RATIO; Value: 0.76; Range: 1.00-1.93; Abnormal: Below low normal; Status: F Lab Order: Lipase; SPEC'M 07/19/16 08:11 Test: LIPASE; Value: 111; Range: 73-393; Units: U/L; Status: F Lab Order: Urinalysis; SPEC'M 07/19/16 08:01 Test: APPEARANCE, URINE; Value: CLEAR; Range: CLEAR; Status: F Test: COLOR, URINE; Value: YELLOW; Range: YELLOW; Status: F Test: PH,URINE; Value: 7.0; Range: 5.0-9.0; Units: UNITS; Status: F Test: SPECIFIC GRAVITY URINE AUTO; Value: 1.008; Range: 1.002-1.035; Status: F Test: PROTEIN, URINE AUTO; Value: NEGATIVE; Range: NEGATIVE; Units: mg/dL; Status: F Test: GLUCOSE, URINE (UA) AUTO; Value: NEGATIVE; Range: NEGATIVE; Units: mg/dL; Status: F Test: KETONE, URINE AUTO; Value: NEGATIVE; Range: NEGATIVE; Units: mg/dL; Status: F Test: UROBILINOGEN, URINE AUTO; Value: 0.2; Range: 0.0-2.0; Units: mg/dL; Status: F Test: BILIRUBIN, URINE AUTO; Value: NEGATIVE; Range: NEGATIVE; Status: F Test: NITRITE, URINE AUTO; Value: NEGATIVE; Range: NEGATIVE; Status: F Test: LEUKOCYTE ESTERASE, URINE AUTO; Value: NEGATIVE; Range: NEGATIVE; Status: F Test: BLOOD, URINE BLOOD; Value: NEGATIVE; Range: NEGATIVE; Status: F Test: WBC, URINE AUTO; Value: 1; Range: 0-3; Units: /HPF; Status: F Test: RBC, URINE AUTO; Value: 1; Range: 0-3; Units: /HPF; Status: F Test: BACTERIA, URINE AUTO; Value: NEGATIVE; Range: NEGATIVE; Status: F Test: SQUAMOUS EPITHELIAL CELL UR AU; Value: 0; Range: 0-6; Units: /HPF; Status: F Test: MUCUS, URINE; Value: SMALL; Range: NEGATIVE; Status: F Test: HYALINE CAST, URINE AUTO; Value: 0; Range: 0-1; Units: /LPF; Status: F Radiology Order: CT ABD & PELVIS: IV and Oral Contrast Test: CT ABD & PELVIS: IV and Oral Contrast REASON FOR EXAMINATION: Abdomen Pain; Clinical: Abdominal pain.; ; Technique: Axial contrast enhanced images from the lung bases to the pubic; symphysis using oral and 100 ml Isovue 370 intravenous contrast material with; coronal and sagittal re-formations.; ; Comparison: 06/07/2016, 05/14/2016.; ; Findings:; Pneumobilia is identified and likely secondary to stent extending from what; appears to be the common bile duct to duodenum. Intrahepatic and extrahepatic; biliary ductal dilatation is appreciated along with ill-defined inflammatory; changes in the right upper quadrant/gallbladder fossa and region of the william; hepatis. The patient is status post cholecystectomy. Spleen, left adrenal gland; and bilateral kidneys are normal. The pancreas demonstrates chronic ductal; dilatation. Right adrenal gland demonstrates 3.4 cm mass with heterogeneous; enhancement which is similar to 2012 and likely represents complex adenoma. There; is no evidence for bowel obstruction or obvious acute inflammatory process to the; enteric system. Pelvis demonstrates partially collapsed normal bladder and; age-appropriate uterus/adnexa. No significant ascites. No free air. No obvious; adenopathy or intra-abdominal mass identified. Abdominal aorta is normal caliber; without aneurysm. Musculoskeletal structures demonstrate degenerative changes; without focal osseous abnormality. Lung bases demonstrate chronic bronchiectasis; and bibasilar fibrosis/scarring.; ; Impression:; Pneumobilia likely due to stent extending from the common bile duct to the; duodenum. Inflammatory type changes in the right upper quadrant related to the; gallbladder fossa are similar to prior examination. No obvious discrete mass; lesion is appreciated.; 3.4 cm complex enhancing stable right adrenal mass.; No further acute abdominopelvic findings.; ; ; Signed by; Rodri Hayes MD 07/19/2016 12:02 P; Outcome: 12:29 Decision to Hospitalize by Provider. br1 13:58 Discharge Assessment: Patient awake, alert and oriented x 3. No cognitive and/or hs1 functional deficits noted. Patient verbalized understanding of disposition instructions. patient administered narcotics - yes. Patient was admitted to the hospital or transferred to another facility. The following High Risk Discharge criteria are identified: None. Condition: stable. CT Study completed. Admission hand-off: Report called to 4 PAV - SBAR recieved. Property :Personal belongings accompany Pt. 14:11 Admitted to Med/Surg accompanied by tech, via stretcher, with oxygen, with chart. hs1 14:18 Patient left the ED. hs1 Signatures: Dispatcher [employer] EDMS Radha Roca, Order Detailer Unit deg Buffy Price, RN RN Raphael Palm, RN Daryl Ponce MD MD br1 Alysa De La Rosa RN RN Katey Cruz RN RN hs1 Mike Velasquez [id number] Evelia Hester mm15 Juan Mason, KATHE MARKETING LEAD d Arslan Baer rn1 Carole Layton Corrections: (The following items were deleted from the chart) 07:47 07:45 BP 145 / 80 Sitting Auto L Arm Regular; Pulse 75bpm; Resp 18bpm; Pulse Ox 100% jrd RA; Temp 98.9F Temporal; 61.23 kg Reported; Height 5 ft. 0 in.; BMI: 26.3; Pain 9/10; jrd Chart Complete MTDD
[2016-07-21 22:00] VITALS: BP 157/81
[2016-07-22] MEDS: oxyCODONE 5MG TAB PO PRN ×5 (03:00→22:15)
[2016-07-22 05:18] LABS: BASO % 0.2 % (0.0-1.0); EOS # 0.1 K/mm3 (0.0-0.50); EOS % 2.5 % (0.0-3.0); LARGE UNSTAINED CELL # 0.1 K/mm3 (0.0-0.4); LARGE UNSTAINED CELL % 1.8 % (0.0-4.0); LYMPH # 1.6 K/mm3 (1.5-4.5); LYMPH % 41.4 % (24.0-44.0); MEAN CORPUSCULAR HEMOGLOBIN 28.3 pg (27.0-33.0); MEAN CORPUSCULAR HGB CONC 33.5 g/dl (32.0-36.5); MEAN CORPUSCULAR VOLUME 84.4 fl (80.0-96.0); MONO # 0.1 K/mm3 (0.0-0.8); MONO % 3.5 % (0.0-5.0); NEUTROPHILS % 50.6 % (36.0-66.0); PLATELET COUNT, AUTOMATED 129 k/mm3 (150-450); RED CELL DISTRIBUTION WIDTH 14.2 % (11.5-14.5); WHITE BLOOD COUNT 3.9 K/mm3 (4.0-10.0)
[2016-07-22 05:26] LABS: ALBUMIN 2.7 GM/DL (3.2-5.2); ALBUMIN/GLOBULIN RATIO 0.71 (1.00-1.93); ALKALINE PHOSPHATASE 402 U/L (45-117); ALT/SGPT 61 U/L (12-78); ANION GAP 4 MEQ/L (8-16); AST/SGOT 92 U/L (15-37); BILIRUBIN,TOTAL 0.6 MG/DL (0.2-1.0); BLOOD UREA NITROGEN 8 MG/DL (7-18); CALCIUM LEVEL 8.5 MG/DL (8.5-10.1); CARBON DIOXIDE LEVEL 32 MEQ/L (21-32); CHLORIDE LEVEL 106 MEQ/L (98-107); CREATININE FOR GFR 0.42 MG/DL (0.55-1.02); GLOMERULAR FILTRATION RATE > 60.0 (>51); GLUCOSE, FASTING 92 MG/DL (70-105); POTASSIUM SERUM 3.9 MEQ/L (3.5-5.1); SODIUM LEVEL 142 MEQ/L (136-145); TOTAL PROTEIN 6.5 GM/DL (6.4-8.2)
[2016-07-22 06:00] VITALS: BP 162/74
[2016-07-22] MEDS: ACETAMINOPHEN TAB 650MG DOSE (2X325MG) PO PRN (07:08)
[2016-07-22] MEDS: MIRALAX *UNIT DOSE* 17GM PACKET PO SCH ×2 (09:00→22:06)
[2016-07-22] MEDS: PANTOPRAZOLE 40MG INJ (PROTONIX) (C9113) IV SCH (09:51)
[2016-07-22] MEDS: CIPROFLOXACIN 400 MG in APPROPRIATE DILUENT 1 EA IV SCH ×2 (09:51→22:11)
[2016-07-22] MEDS: DOCUSATE SODIUM 100 MG CAP PO SCH ×2 (09:51→22:07)
[2016-07-22] MEDS: clonazePAM 1 MG TAB PO SCH ×3 (09:51→22:16)
[2016-07-22] MEDS: ATENOLOL 50 MG TAB PO SCH ×2 (09:52→22:10)
[2016-07-22] MEDS: oxyCODONE 40 MG CR TAB PO SCH ×2 (09:54→22:09)
[2016-07-22] MEDS: metroNIDAZOLE 500 MG in APPROPRIATE DILUENT 1 EA IV SCH ×2 (11:13→22:14)
[2016-07-22] MEDS: KCL 40MEQ IN D5/NS 1000ML 1,000 ML IV SCH ×2 (11:13→23:46)
--- NOTE | 2016-07-22 13:28 | IPN ---
DATE: 07/22/2016 This is a 55-year-old female seen at bedside resting relatively comfortable today. Abdominal pain is about the same, no nausea or vomiting. Dr. Parra has seen the patient on consult and plans on doing the ERCP later today with possible removal of the stent in her biliary tree. OBJECTIVE: Temperature is 98.8, pulse 72, respiratory rate is 18, blood pressure (BP) 155/83, SPO2 93% on room air. General: The patient appears to be in no acute distress. She is alert. HEENT: Unremarkable. Tracheostomy tube is in place and patent. Throat clear. Lungs: Clear. Heart: Regular rate and rhythm. Abdomen: Slightly distended. Positive bowel sounds. No masses. No rebound. Some mild tenderness noted in the right upper quadrant epigastric region. Extremities: No edema, no calf tenderness. LABORATORY DATA: White count 3.9, hemoglobin 8.5 and platelets are 129,000. Sodium 142, potassium 3.9, chloride 106, bicarb 32, anion gap 4, BUN is 8, creatinine 0.42, glucose of 92, AST 92, ALT 61, alkaline phosphatase 402, total bilirubin 0.6. Urine culture is negative. ASSESSMENT/PLAN: 1. Acute on chronic abdominal pain status post extra biliary duct stent placement by Dr. Parra. Plan is for her to go to the OR later today for ERCP and stent removal. Continue with current pain medications and bowel regimen. 2. Pancytopenia with history of hepatitis B and C. She has seen Dr. Ford as an outpatient and defer any workup concerning cirrhosis to Dr. Parra if he feels it necessary. Will go ahead and add on alpha fetoprotein. I do suspect there may be some underlying cirrhosis. 3. T1 esterase inhibitor deficiency. Has Berinert available. Will encourage her to use this prior to the procedure. Followup with Dr. Roca outpatient. 4. Hepatitis B and C. As outlined above. 5. Hypertension. Continue with atenolol. Will plan on resuming amlodipine and hydrochlorothiazide when she resumes a full diet. 6. Anxiety, stable on clonazepam. 7. Neuropathy. Continue on Cymbalta. 8. Deep vein thrombosis (DVT) prophylaxis. On Lovenox. DISPOSITION: Again, several concerns regarding her acute on chronic abdominal pain requiring narcotics and her opioid dependence. Will try to balance her pain needs versus her tendency to develop narcolepsy/lethargy. I did explain this to her. She is on board with the plan to try to make sure that we do not over sedate her, but to try to treat her appropriately. Pain management has seen the patient as well. Their recommendations were to not make many changes in her home medications. Again, appreciate Dr. Parra's input. Will see if we can start advancing her diet over the next 24-48 hours with home discharge sometime later this week.
[2016-07-22 14:00] VITALS: BP_SYST 119; BP_SYST 120; BP_DIAS 58; BP_DIAS 79
[2016-07-22] MEDS ORDERED: [UNRECOGNIZED DRUG - OTHER] IV PRN ×2 (14:00→14:03)
[2016-07-22] MEDS ORDERED: C1 ESTERASE INHIBITOR IV ONE (15:00)
[2016-07-22] MEDS ORDERED: DILUENT IV ONE (15:00)
[2016-07-22] MEDS ORDERED: MIDAZOLAM INJ 2 MG/2 ML VIAL (J2250) As Ordered ONE (15:06)
[2016-07-22] MEDS ORDERED: fentaNYL 250 MCG/5 ML INJECTION (J3010) As Ordered ONE (15:10)
[2016-07-22] MEDS ORDERED: LIDOCAINE 2% INJ 100 MG/5 ML SDV (FOR ANES.) As Ordered ONE (15:11)
[2016-07-22] MEDS ORDERED: PROPOFOL 200 MG/20 ML VIAL As Ordered ONE (15:13)
[2016-07-22] MEDS ORDERED: ISOVUE-300 61% 50ML VIAL (Q9967) As Ordered ONE ×2 (15:46→16:47)
[2016-07-22] MEDS ORDERED: ISOVUE-300 61% 50ML VIAL (Q9967) XX ONE (16:54)
--- NOTE | 2016-07-22 17:37 | ROOR ---
Patient Name: Maribell Herrera Procedure Date: 07/22/2016 4:13 PM Date of : 1960 Age: 55 Room: Main OR Gender: Female Note Status: Finalized Procedure: ERCP Indications: Abdominal pain of suspected biliary origin, Biliary dilation on Ultrasound, Abnormal abdominal MRI, Stent removal, abnormal HIDA suggestive of complete obstruction, yet normal bilirubin Providers: Raphael PETE MD Referring MD: 2. Inpatient 2. Inpatient Requesting Provider: Medicines: General Anesthesia Complications: No immediate complications. Procedure: Pre-Anesthesia Assessment: - The heart rate, respiratory rate, oxygen saturations, blood pressure, adequacy of pulmonary ventilation, and response to care were monitored throughout the procedure. The Duodenoscope was introduced through the mouth, and advanced to the duodenum and used to inject contrast into the bile duct. The ERCP was accomplished without difficulty. The patient tolerated the procedure well. Findings: The electron beam operator film was normal. The esophagus was successfully intubated under direct vision. The scope was advanced to a normal major papilla in the descending duodenum without detailed examination of the pharynx, larynx and associated structures, and upper GI tract. The upper GI tract was grossly normal. One previously placed stent was present protruding from the papilla. This was removed from the biliary tree using a snare. After first passing wire into the papilla, its biliary position was confirmed with fluoroscopy. The bile duct was deeply cannulated. Contrast was injected. I personally interpreted the bile duct images. Ductal flow of contrast was adequate. Image quality was adequate. Contrast extended to the entire biliary tree. The common hepatic duct contained a single segmental stenosis. There is tortuosity here and on several images, small polypoid structures or air bubbles are suggested. A 7 mm biliary sphincterotomy was made with a monofilament traction (standard) sphincterotome using ERBE electrocautery. There was no post-sphincterotomy bleeding. To discover objects, the biliary tree was swept with a 12 mm balloon starting at the bifurcation. A small amount of sludge was swept from the distal duct, but no stones were seen. Cells for cytology were obtained by brushing the common hepatic duct stricture. A 8.5 Fr by 10 cm plastic stent was placed into the biliary tree crossing above the biliary stricture. Bile flowed through the stent. The stent was in good position. Impression: - A segmental biliary stricture was found in the area of the common hepatic duct. The stricture was indeterminate. - Cytology brushing of stricture was performed. - Small sludge was seen. Complete removal was accomplished by biliary sphincterotomy and balloon extraction. - The old stent was removed, and a new 8.5x10 cm plastic stent was placed across the CHD stricture. Recommendation: -(I note s/p lap julieta ~1 month ago) - Observe patient's clinical course. - Await cytology results. - Return to endoscopist for stent exchange at ERCP in 3 months. - Depending on todays cytology, consideration may be given to further evaluation of the stricture via direct visualisation/biopsy of the bile duct/spyglass. Referral to tertiary care may be considered for repeat ERCP in near future--to be discussed on office follow up. - Observe patient's clinical course. - Await cytology results. - Return to endoscopist for stent exchange at ERCP in 3 months. - Depending on todays cytology, consideration may be given to further evaluation of the stricture via direct visualisation/biopsy of the bile duct/spyglass. Referral to tertiary care may be considered for repeat ERCP in near future--to be discussed on office follow up. Raphael Pete MD Raphael PETE MD 07/22/2016 5:36:24 PM This report has been signed electronically. Number of Addenda: 0 Note Initiated On: 07/22/2016 4:13 PM Estimated Blood Loss: Estimated blood loss: none.
[2016-07-22] MEDS ORDERED: fentaNYL 100 MCG/2 ML INJECTION (J3010) As Ordered ONE (17:49)
[2016-07-22] MEDS: fentaNYL 100 MCG/2 ML INJECTION (J3010) IV PRN ×4 (17:50→18:05)
[2016-07-22] MEDS ORDERED: PERCOCET 5MG/325MG TAB PO PRN (18:00)
[2016-07-22] MEDS ORDERED: ONDANSETRON 4MG/2ML VIAL (J2405) IV PRN (18:00)
[2016-07-22] MEDS ORDERED: LR 1,000 ML IV SCH (18:00)
[2016-07-22 19:00] VITALS: BP 146/75
[2016-07-22 19:30] VITALS: BP 135/65
[2016-07-22 20:00] VITALS: BP 133/73
[2016-07-22 20:30] VITALS: BP 123/68
[2016-07-23] MEDS: metroNIDAZOLE 500 MG in APPROPRIATE DILUENT 1 EA IV SCH ×3 (03:46→18:41)
[2016-07-23] MEDS: oxyCODONE 5MG TAB PO PRN ×4 (03:47→16:39)
[2016-07-23 06:00] VITALS: BP 132/77
[2016-07-23 06:18] LABS: BASO % 0.2 % (0.0-1.0); EOS # 0.1 K/mm3 (0.0-0.50); EOS % 1.6 % (0.0-3.0); LARGE UNSTAINED CELL # 0.1 K/mm3 (0.0-0.4); LARGE UNSTAINED CELL % 2.1 % (0.0-4.0); LYMPH # 1.8 K/mm3 (1.5-4.5); LYMPH % 35.5 % (24.0-44.0); MEAN CORPUSCULAR HGB CONC 32.7 g/dl (32.0-36.5); MEAN CORPUSCULAR VOLUME 85.8 fl (80.0-96.0); MONO # 0.1 K/mm3 (0.0-0.8); MONO % 2.5 % (0.0-5.0); NEUTROPHILS # 2.9 K/mm3 (1.8-7.7); NEUTROPHILS % 58.2 % (36.0-66.0); PLATELET COUNT, AUTOMATED 127 k/mm3 (150-450); RED CELL DISTRIBUTION WIDTH 14.4 % (11.5-14.5)
--- NOTE | 2016-07-23 06:39 | REP ---
ERCP: Multiple C-arm views are performed during ERCP exam and compared to prior study of 06/10/2016. Contrast is seen in the common bile duct and intrahepatic bile ducts. There appears to be a stent placed in the common bile duct. 7 minutes 39 seconds fluoroscopy time utilized for the procedure. Signed by Jake Adorno MD 07/23/2016 03:51 P
[2016-07-23 06:43] LABS: ALBUMIN 2.6 GM/DL (3.2-5.2); ALBUMIN/GLOBULIN RATIO 0.87 (1.00-1.93); ALKALINE PHOSPHATASE 326 U/L (45-117); ALT/SGPT 37 U/L (12-78); ANION GAP 6 MEQ/L (8-16); AST/SGOT 38 U/L (15-37); BILIRUBIN,TOTAL 0.4 MG/DL (0.2-1.0); BLOOD UREA NITROGEN 8 MG/DL (7-18); CARBON DIOXIDE LEVEL 30 MEQ/L (21-32); CHLORIDE LEVEL 106 MEQ/L (98-107); CREATININE FOR GFR 0.49 MG/DL (0.55-1.02); GLOMERULAR FILTRATION RATE > 60.0 (>51); GLUCOSE, FASTING 94 MG/DL (70-105); POTASSIUM SERUM 3.7 MEQ/L (3.5-5.1); SODIUM LEVEL 142 MEQ/L (136-145); TOTAL PROTEIN 5.6 GM/DL (6.4-8.2)
[2016-07-23] MEDS: DOCUSATE SODIUM 100 MG CAP PO SCH ×2 (08:33→20:23)
[2016-07-23] MEDS: MIRALAX *UNIT DOSE* 17GM PACKET PO SCH ×3 (08:33→20:25)
[2016-07-23] MEDS: clonazePAM 1 MG TAB PO SCH ×3 (08:33→20:23)
[2016-07-23] MEDS: ATENOLOL 50 MG TAB PO SCH ×2 (08:34→20:23)
[2016-07-23] MEDS: oxyCODONE 40 MG CR TAB PO SCH ×2 (08:34→20:23)
[2016-07-23] MEDS: PANTOPRAZOLE 40MG INJ (PROTONIX) (C9113) IV SCH (08:34)
[2016-07-23 09:36] VITALS: BP 118/76
[2016-07-23] MEDS: CIPROFLOXACIN 400 MG in APPROPRIATE DILUENT 1 EA IV SCH ×2 (10:37→22:03)
[2016-07-23 14:00] VITALS: BP 160/74
--- NOTE | 2016-07-23 17:22 | IPN ---
DATE: 07/23/2016 55-year-old female, no overnight issues were reported. She did have an ERCP performed by Dr. Parra yesterday. Please refer to his surgical note for the procedure and his recommendations to return to the endoscopist for stent exchange and ERCP in 3 months. Cytology labs are pending. OBJECTIVE: Temperature 97.9, pulse 88, respiratory rate 18, BP 118/76, SPO2 98% on 2 liters. GENERAL: The patient appears to be in no acute distress. She is alert, pleasant. HEENT: Unremarkable. LUNGS: Clear. HEART: Regular rhythm. ABDOMEN: Soft, nontender, normoactive bowel sounds. No masses. EXTREMITIES: No edema or calf tenderness. LABORATORY DATA: White count 5.0, hemoglobin 8.1, platelets are 127,000, sodium 142, potassium 3.7, chloride 106, bicarb 30, anion gap 6, BUN 8, creatinine 0.49, glucose 94, AST 30, ALT 37, alkaline phosphatase 326. Alpha fetoprotein is pending. Pathology is pending. ASSESSMENT/PLAN: 1. Acute on chronic abdominal pain status post a exchange of extra biliary duct stent by Dr. Ritchie. Appreciate his assistance. She does appear to be symptomatically improved t, we will try to advance her diet today. 2. Pancytopenia with history of hepatitis C and B sees Dr. Ford as an outpatient. Concern for possibility of cirrhosis. Will defer to Dr. Parra. Alpha-fetoprotein levels pending. 3. 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 Followup with Dr. Roca as outpatient. 4. Hepatitis B and C as outlined above. Follow up with Dr. Ford and Dr. Parra. 5. Hypertension. Continue on current medications. Resuming amlodipine and hydrochlorothiazide within the next 24-48 hours. 5. Anxiety, stable on clonazepam. 6. Neuropathy. Continue on Cymbalta. 7. Currently on Lovenox. Her platelets however trended down slightly since she has been here. Will go ahead and discontinue the Lovenox, thromboembolic deterrent stockings (TEDS), sequentials and encourage ambulation as tolerated. DISPOSITION: Depend on how she does with her diet and abdominal pain she may be ready for discharge tomorrow morning.
[2016-07-23] MEDS: KCL 40MEQ IN D5/NS 1000ML 1,000 ML IV SCH (20:24)
[2016-07-23 22:00] VITALS: BP 165/85
[2016-07-24] MEDS: oxyCODONE 5MG TAB PO PRN ×5 (01:06→21:42)
[2016-07-24 05:55] LABS: BASO % 0.4 % (0.0-1.0); EOS # 0.1 K/mm3 (0.0-0.50); EOS % 2.4 % (0.0-3.0); LARGE UNSTAINED CELL # 0.1 K/mm3 (0.0-0.4); LARGE UNSTAINED CELL % 3.1 % (0.0-4.0); LYMPH # 1.8 K/mm3 (1.5-4.5); LYMPH % 53.4 % (24.0-44.0); MEAN CORPUSCULAR HEMOGLOBIN 28.2 pg (27.0-33.0); MEAN CORPUSCULAR HGB CONC 32.6 g/dl (32.0-36.5); MEAN CORPUSCULAR VOLUME 86.6 fl (80.0-96.0); MONO # 0.1 K/mm3 (0.0-0.8); MONO % 3.3 % (0.0-5.0); NEUTROPHILS # 1.3 K/mm3 (1.8-7.7); NEUTROPHILS % 37.4 % (36.0-66.0); PLATELET COUNT, AUTOMATED 153 k/mm3 (150-450); RED CELL DISTRIBUTION WIDTH 14.5 % (11.5-14.5); WHITE BLOOD COUNT 3.4 K/mm3 (4.0-10.0)
[2016-07-24 06:15] LABS: ALBUMIN 2.8 GM/DL (3.2-5.2); ALBUMIN/GLOBULIN RATIO 0.88 (1.00-1.93); ALKALINE PHOSPHATASE 289 U/L (45-117); ALT/SGPT 31 U/L (12-78); ANION GAP 7 MEQ/L (8-16); AST/SGOT 28 U/L (15-37); BILIRUBIN,TOTAL 0.4 MG/DL (0.2-1.0); BLOOD UREA NITROGEN 5 MG/DL (7-18); CALCIUM LEVEL 8.1 MG/DL (8.5-10.1); CARBON DIOXIDE LEVEL 29 MEQ/L (21-32); CHLORIDE LEVEL 109 MEQ/L (98-107); CREATININE FOR GFR 0.49 MG/DL (0.55-1.02); GLOMERULAR FILTRATION RATE > 60.0 (>51); GLUCOSE, FASTING 96 MG/DL (70-105); POTASSIUM SERUM 3.7 MEQ/L (3.5-5.1); SODIUM LEVEL 145 MEQ/L (136-145)
[2016-07-24 08:34] VITALS: BP 160/90
[2016-07-24] MEDS ORDERED: methylPREDNISolone INJ 125 MG/2 ML VIAL (J2930) IV ONE (09:00)
[2016-07-24] MEDS ORDERED: diphenhydrAMINE INJ 50MG/ML VIAL (J1200) IV ONE (09:00)
[2016-07-24] MEDS: DOCUSATE SODIUM 100 MG CAP PO SCH ×2 (09:28→20:38)
[2016-07-24] MEDS: MIRALAX *UNIT DOSE* 17GM PACKET PO SCH ×2 (09:30→20:39)
[2016-07-24] MEDS: ATENOLOL 50 MG TAB PO SCH ×2 (09:30→20:39)
[2016-07-24] MEDS: ENOXAPARIN 40 MG/0.4 ML SYRINGE (J1650) SC SCH (09:31)
[2016-07-24] MEDS: clonazePAM 1 MG TAB PO SCH ×3 (10:08→20:38)
[2016-07-24] MEDS: oxyCODONE 40 MG CR TAB PO SCH ×2 (10:09→20:37)
[2016-07-24] MEDS: PANTOPRAZOLE 40MG INJ (PROTONIX) (C9113) IV SCH (10:10)
[2016-07-24 14:00] VITALS: BP 140/80
[2016-07-24] MEDS: KCL 40MEQ IN D5/NS 1000ML 1,000 ML IV SCH (14:42)
--- NOTE | 2016-07-24 16:40 | IPN ---
DATE: 07/24/2016 55-year-old female seen at bedside, sitting, eating her breakfast. She denies any overnight issues, feels the abdominal pain has improved considerably. No fevers, chills, nausea or vomiting. OBJECTIVE: Temperature 95, pulse 72, respiratory rate 18, blood pressure 140/80, SpO2 is 95% on room air. GENERAL: The patient appears to be in no acute distress. Is alert, oriented. HEENT: Unremarkable. LUNGS: Clear. HEART: Regular rate and rhythm. ABDOMEN: Soft. Vague upper abdominal tenderness but no rebound. Normoactive bowel sounds. EXTREMITIES: No edema or calf tenderness. LABORATORY DATA: White count 3.4, hemoglobin 8.5, platelets are 153,000. Sodium is 145, potassium 3.7, chloride 109, bicarbonate 29, anion gap 7, BUN is 5, creatinine 0.49, glucose is 96, calcium 8.1, total bilirubin 0.4, AST 28, ALT 31, alkaline phosphatase 289, albumin is 2.8. The pathology from the bile duct brushing during the ERCP performed by Dr. Parra is negative for malignancy and reactive description of the debris is noted. ASSESSMENT/PLAN: 1. Acute on chronic abdominal pain status post exchange of biliary duct stent by Dr. Parra, appreciate his involvement. She does appear to be improved today. Will try to advance her diet. 2. Pancytopenia with history of hepatitis C and D. She should followup with Dr. Ford and Dr. Parra as an outpatient. Alpha-fetoprotein level is pending. 3. Thrombocytopenia has resolved. We have discontinued heparin products. 4. Chronic anemia as outlined above. This appears to be stable. 5. C1 esterase inhibitor deficiency with Berinert use. Should followup with Dr. Roca as an outpatient. 6. Hepatitis B and C as outlined. Followup with Dr. Ford and Dr. Parra. 7. Hypertension, stable on current medications. Resuming amlodipine, hydrochlorothiazide once her diet is advanced, likely tomorrow. 8. Anxiety, stable on clonazepam. 9. Neuropathy. Continue Cymbalta. 10. Deep venous thrombosis (DVT) prophylaxis. Thromboembolism deterrents (TEDs) and sequential compression devices (SCDs). DISPOSITION: Depending on how she does with her diet progression today, we did hold the discharge until tomorrow.
[2016-07-24 22:00] VITALS: BP 165/88
[2016-07-25 02:15] VITALS: BP 170/86
[2016-07-25] MEDS: oxyCODONE 5MG TAB PO PRN ×5 (02:20→21:30)
--- NOTE | 2016-07-25 02:55 | IPNPDOC ---
Date Seen The patient was seen on 07/25/16. Progress Note Was called on the pt, nurse was concerned about her BP trending upwards. I decided to start her amlodipine tonight to see how her pressures will respond in the AM. I reviewed her notes, the plan was to resume her amlodipine sometime tomorrow. Pt has been tolerating a regular diet since lunch yesterday. GME ATTESTATION My preceptor for this patient encounter was physically present in the building during the encounter and was fully available. As needed, all aspects of the patient interview, examination, medical decision making process, and medical care plan development were reviewed and approved by the preceptor. Preceptor is aware and concurs with the plan as stated in the body of this note and will attest to such by his/her cosignature. VITAL SIGNS VITAL SIGNS Vital Signs Label Value Date Time Blood Pressure Assessment 170/86 (114) 07/25/16 021 Pulse 65 07/25/16 0215 KATHIE CHRISTINE DO Jul 25, 2016 02:55
[2016-07-25] MEDS ORDERED: amLODIPine 10 MG TAB PO ONE (03:00)
[2016-07-25 04:11] VITALS: BP 140/78
[2016-07-25] MEDS: KCL 40MEQ IN D5/NS 1000ML 1,000 ML IV SCH (05:44)
[2016-07-25 06:00] VITALS: BP 156/78
[2016-07-25] MEDS ORDERED: HEPARIN SOD (PORCINE) 5000 UNITS/ML VIAL IV SCH (08:15)
[2016-07-25] MEDS ORDERED: SODIUM CHLORIDE 0.9% INJ 10 ML SYR IV PRN (08:30)
[2016-07-25] MEDS: MIRALAX *UNIT DOSE* 17GM PACKET PO SCH ×2 (09:00→21:00)
[2016-07-25] MEDS: PANTOPRAZOLE 40MG INJ (PROTONIX) (C9113) IV SCH (09:38)
[2016-07-25] MEDS: SODIUM CHLORIDE 0.9% INJ 10 ML SYR IV SCH (09:39)
[2016-07-25] MEDS: ATENOLOL 50 MG TAB PO SCH ×2 (09:41→21:29)
[2016-07-25] MEDS: DOCUSATE SODIUM 100 MG CAP PO SCH ×2 (09:41→21:00)
[2016-07-25] MEDS: oxyCODONE 40 MG CR TAB PO SCH ×2 (09:41→21:29)
[2016-07-25] MEDS: clonazePAM 1 MG TAB PO SCH ×3 (09:41→21:28)
[2016-07-25] MEDS: ENOXAPARIN 40 MG/0.4 ML SYRINGE (J1650) SC SCH (09:42)
[2016-07-25] MEDS ORDERED: tiZANidine 4 MG TAB PO PRN (10:00)
[2016-07-25] MEDS ORDERED: SIMETHICONE 80 MG CHEW TAB PO PRN (10:00)
--- NOTE | 2016-07-25 10:19 | IPN ---
DATE: 07/25/2016 55-year-old female seen at bedside. No overnight issues reported. She did however have some issues with some swelling in both arms and hands with some mild pitting edema. She denies headache, lightheaded, dizziness, nausea, vomiting. Feels that her abdominal pain is much better. No chest pain. OBJECTIVE: Temperature is 97.4, pulse 70, respiratory rate is 20, blood pressure 140/78, SpO2 is 99% on room air. GENERAL: The patient appears to be in no acute distress, is alert and oriented. Observing her intake and output, she is approximately to 2-1/2 liters positive. HEENT: Unremarkable. LUNGS: Clear. HEART: Regular rate and rhythm. ABDOMEN: Soft. Normal active bowel sounds. EXTREMITIES: No lower extremity edema, but on her arms she does have some mild pitting edema of the hands bilaterally. No signs of erythema or rash. Her tracheostomy remains patent. Labs are pending at this time. ASSESSMENT/PLAN: 1. Acute on chronic abdominal pain status post exchanged biliary duct stent by Dr. Parra. She does appear to be improving clinically and were advancing her diet. 2. Pancytopenia with history of hepatitis C and b, stable. Can followup with Dr. Parra as an outpatient. Alpha-fetoprotein tumor marker is 7, which is normal. 3. Hypertension. Recently started on Norvasc. Will continue to follow. 4. Chronic anemia as outlined above. Can follow with outpatient workup. 5. C1 esterase inhibitor deficiency with Berinerts. Stable. Followup with Dr. Roca as an outpatient. 6. Hepatitis B and C by history. Followup with outpatient infectious disease and Dr. Parra. 7. Anxiety, stable on clonazepam. 8. Neuropathy. Continue with some Cymbalta. 9. Chronic pain syndrome. Continue on pain medications as outlined. 10. Deep vein thrombosis (DVT) prophylaxis. Thromboembolic deterrent stockings (TEDS) and sequential. Due to the thrombocytopenia heparin products are being avoided. DISPOSITION: Will see how we can progress her diet through today and tomorrow. She does have an appointment with her provider on Wednesday as well as pain management. She informs me that she is out for pain medications and cannot get them filled until she sees her pain management doctor on Wednesday. At any rate, we will see how she does with her diet. I did discontinue her IV fluids and plan on discharge early Wednesday morning.
[2016-07-25 14:00] VITALS: BP 134/69
[2016-07-25] MEDS ORDERED: SLF 3 ML SYR IV SCH (14:00)
[2016-07-25 22:00] VITALS: BP 164/84
[2016-07-26] MEDS: oxyCODONE 5MG TAB PO PRN ×3 (01:50→10:40)
[2016-07-26 06:00] VITALS: BP 135/78
[2016-07-26 06:30] LABS: MEAN CORPUSCULAR HEMOGLOBIN 27.9 pg (27.0-33.0); MEAN CORPUSCULAR HGB CONC 32.4 g/dl (32.0-36.5); WHITE BLOOD COUNT 3.8 K/mm3 (4.0-10.0)
[2016-07-26 06:46] LABS: ALBUMIN 2.8 GM/DL (3.2-5.2); ALBUMIN/GLOBULIN RATIO 0.78 (1.00-1.93); ALKALINE PHOSPHATASE 244 U/L (45-117); ALT/SGPT 20 U/L (12-78); ANION GAP 9 MEQ/L (8-16); AST/SGOT 17 U/L (15-37); BILIRUBIN,TOTAL 0.3 MG/DL (0.2-1.0); BLOOD UREA NITROGEN 10 MG/DL (7-18); CARBON DIOXIDE LEVEL 28 MEQ/L (21-32); CHLORIDE LEVEL 108 MEQ/L (98-107); GLOMERULAR FILTRATION RATE > 60.0 (>51); GLUCOSE, FASTING 91 MG/DL (70-105); POTASSIUM SERUM 3.3 MEQ/L (3.5-5.1); SODIUM LEVEL 145 MEQ/L (136-145); TOTAL PROTEIN 6.4 GM/DL (6.4-8.2)
[2016-07-26] MEDS ORDERED: POTASSIUM CHLORIDE 10 MEQ SR TABLET PO ONE (07:30)
[2016-07-26] MEDS ORDERED: OXYC40TA12 PO (08:42)
[2016-07-26] MEDS ORDERED: PEG1POW PO (08:42)
[2016-07-26] MEDS ORDERED: OXYC30TA84 PO (08:42)
[2016-07-26] MEDS: MIRALAX *UNIT DOSE* 17GM PACKET PO SCH (09:00)
[2016-07-26] MEDS ORDERED: amLODIPine 10 MG TAB PO SCH (09:00)
--- NOTE | 2016-07-26 09:34 | DSES ---
DATE OF ADMISSION: 07/22/2016 DATE OF DISCHARGE: 07/26/2016 CONSULTANTS: Dr. Parra PROCEDURES: Endoscopic retrograde cholangiopancreatography (ERCP) with exchange of biliary tract stent. COMPLICATIONS: None. ADMISSION/DISCHARGE DIAGNOSES: 1. Acute on chronic abdominal pain, which did improve with exchange of biliary tract stent. 2. 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 4. 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 5. Hypertension. 6. Hepatitis B, hepatitis C. 7. Prior history of left breast cancer with modified radical mastectomy and chemotherapy. 8. Neuropathy. 9. Osteoporosis. 10. Severe kyphosis 11. Degenerative disc disease. 12. History of cholelithiasis, status post cholecystectomy. 13. Chronic pain syndrome. 14. Chronic anemia. 15. History of right adrenal mass. Stable. No suicidal ideation. No audiovisual hallucinations. BRIEF HOSPITAL COURSE: Ms. Herrera is a 55-year-old female who presented on 07/19/2016 for acute exacerbation of her chronic abdominal pain. She did use one of her Berinerts, which did not resolve her pain. She had no significant abnormalities on CT of the abdomen, and the MRI of the abdomen did show a limited study, splenomegaly with dilated main pancreatic duct, no biliary duct dilation. The case was discussed with Dr. Parra, who did proceed to do an ERCP and exchange of stent in the biliary tree. The patient did gradually improve her symptomatology over the next 48-72 hours and was able to advance her diet. On day of discharge, she was felt to be back to her baseline and requested to be discharged today with followup appointment tomorrow with her pain management doctor and primary care doctor this coming week and will need appropriate followup with Dr. Parra. For further information regarding intake physical, laboratories, diagnostics, please refer to the history and physical (H and P), as well as the consultation notes and procedure note by Dr. Parra. PHYSICAL EXAMINATION: Temperature is 97, pulse 63, respiratory rate 18, blood pressure (BP) 135/78, SpO2 is 96% on room air. General: The patient appears to be in no acute distress. Is alert and oriented. HEENT: Unremarkable. Lungs: Clear. Heart: Regular rate and rhythm. Abdomen: Soft. Extremities: She did have some mild edema in the forearms bilaterally, likely from acute volume overload with intravenous (IV) fluids. Otherwise, her lungs are clear, and she should resolve this in a few days. White count is 3.8, hemoglobin 8.2, platelets 164,000. Sodium is 135, potassium 3.3 which will supplement, chloride 108, bicarbonate 28 , anion gap at 9, BUN is 10, creatinine 0.5, glucose is 91, AST 17, ALT 20, alkaline phosphatase 244, albumin is 2.8. Discharge condition is good. DISPOSITION: Discharge to home with appropriate followup. Discharge medications: She will be given a 24-hour prescription for oxycodone 40 mg, #2, one by mouth every 12 hours. Oxycodone 30 mg one every 4 hours as needed pain, #6, with no refills. Polyethylene glycol one packet twice a day, and she should continue on the following medications: - Norvasc 10 mg daily - atenolol 50 mg twice a day - azelastine nasal spray one spray per nostril daily - Dulcolax suppository 10 mg IA daily as needed - Berinerts injection as directed as needed flare-up with angioedema - Tums 1000 mg twice a day - Zyrtec 10 mg daily - clonazepam 2 mg three times a day - Colace 100 mg three times a day - Cymbalta 60 mg daily - vitamin D 50,000 units weekly - ferrous sulfate 325 mg daily - hydrochlorothiazide 50 mg daily - magnesium citrate as directed daily as needed - magnesium oxide 800 mg daily - OxyContin 40 mg every 12 hours - oxycodone 30 mg every 4 hours as needed - pantoprazole 20 mg daily - Denavir one dose topically daily as needed cold sores - potassium chloride 20 mEq twice a day - mirapex 0.25 mg nightly - phenergan 25 mg by mouth twice a day as needed nausea - Senna one tablet daily as needed - Belsomra 20 mg nightly as needed - tizanidine 4 mg three times a day as needed muscle spasm - Kenalog cream applied topically twice a day as needed rash DISCHARGE INSTRUCTIONS: Discharged home. Activity as tolerated. Regular diet. Followup with primary care provider in a week or two. To see pain management this coming week and Dr. Parra in the next week or so. Continue medications as directed. She is instructed to seek medical attention if symptoms should worsen or progress. She voices understanding. The discharge took approximately 35 minutes. ERICK
[2016-07-26] MEDS: ENOXAPARIN 40 MG/0.4 ML SYRINGE (J1650) SC SCH (10:07)
[2016-07-26] MEDS: SODIUM CHLORIDE 0.9% INJ 10 ML SYR IV SCH (10:07)
[2016-07-26] MEDS: PANTOPRAZOLE 40MG INJ (PROTONIX) (C9113) IV SCH (10:07)
[2016-07-26 10:08] VITALS: BP 135/78
[2016-07-26] MEDS: DOCUSATE SODIUM 100 MG CAP PO SCH (10:08)
[2016-07-26] MEDS: clonazePAM 1 MG TAB PO SCH (10:08)
[2016-07-26] MEDS: ATENOLOL 50 MG TAB PO SCH (10:08)
[2016-07-26] MEDS: oxyCODONE 40 MG CR TAB PO SCH (10:09)
== END 2016-07-26 10:42 | disposition home health service (06) | DRG 261 ==
LOC: M ED 07:36 → M MSPAV 12:41 → M ED INP 12:42 → M MSPAV 14:20 → OBSVTOIN 07-22 10:38 → M MS5PR 07-22 18:07
PROVIDERS: ADMIT Internal Medicine Nephrology; ATTEND Hospitalist
PROC: 0FPB7DZ Removal of Intraluminal Device from Hepatobiliary Duct, Via Natural or Artificial Opening (ICD-10-PCS; principal; 2016-07-22 09:48)
DX: K83.1 Obstruction of bile duct (principal); D61.818 Other pancytopenia; D84.1 Defects in the complement system; Z93.0 Tracheostomy status; E27.8 Other specified disorders of adrenal gland; D69.6 Thrombocytopenia, unspecified; B19.10 Unspecified viral hepatitis B without hepatic coma; I10 Essential (primary) hypertension; B19.20 Unspecified viral hepatitis C without hepatic coma; Z85.3 Personal history of malignant neoplasm of breast; M40.209 Unspecified kyphosis, site unspecified; Z79.899 Other long term (current) drug therapy; F32.9 Major depressive disorder, single episode, unspecified; F41.9 Anxiety disorder, unspecified; G89.29 Other chronic pain; G60.9 Hereditary and idiopathic neuropathy, unspecified; Z88.5 Allergy status to narcotic agent; Z88.0 Allergy status to penicillin; Z88.8 Allergy status to other drugs, medicaments and biological substances

== ENCOUNTER 2016-10-13 22:03 | Inpatient (IN) | payer OTHER ==
[~2016-10-13] VITALS: Ht 152.4 cm; Wt 56.7 kg
[~2016-10-13 22:03] MED LIST changes: -COLA100C PO; +COLA100C3 PO; +DULC10SU2 PR; +OXYC40TA13 PO; +SENN1TAB4 PO
[2016-10-13] MEDS ORDERED: HYDROmorphone HCL 1 MG/ML SYRINGE (J1170) IV ONE (22:45)
[2016-10-13 22:47] LABS: BASO % 0.6 % (0.0-1.0); EOS # 0.1 K/mm3 (0.0-0.50); EOS % 1.5 % (0.0-3.0); LARGE UNSTAINED CELL # 0.1 K/mm3 (0.0-0.4); LARGE UNSTAINED CELL % 1.8 % (0.0-4.0); LYMPH # 2.4 K/mm3 (1.5-4.5); LYMPH % 48.2 % (24.0-44.0); MEAN CORPUSCULAR HEMOGLOBIN 28.6 pg (27.0-33.0); MEAN CORPUSCULAR HGB CONC 33.2 g/dl (32.0-36.5); MEAN CORPUSCULAR VOLUME 86.2 fl (80.0-96.0); MONO # 0.2 K/mm3 (0.0-0.8); MONO % 3.9 % (0.0-5.0); NEUTROPHILS # 2.1 K/mm3 (1.8-7.7); NEUTROPHILS % 44.1 % (36.0-66.0); PLATELET COUNT, AUTOMATED 128 k/mm3 (150-450); RED CELL DISTRIBUTION WIDTH 14.6 % (11.5-14.5); WHITE BLOOD COUNT 4.8 K/mm3 (4.0-10.0)
[2016-10-13] MEDS ORDERED: GASTROGRAFIN SOLUTION 30ML PO ONE (23:00)
[2016-10-13 23:03] LABS: ALBUMIN/GLOBULIN RATIO 0.83 (1.00-1.93); ALKALINE PHOSPHATASE 292 U/L (45-117); ALT/SGPT 107 U/L (12-78); ANION GAP 6 MEQ/L (8-16); AST/SGOT 96 U/L (15-37); BILIRUBIN,DIRECT 0.2 MG/DL (0.0-0.2); BILIRUBIN,TOTAL 0.5 MG/DL (0.2-1.0); BLOOD UREA NITROGEN 13 MG/DL (7-18); CALCIUM LEVEL 8.3 MG/DL (8.5-10.1); CARBON DIOXIDE LEVEL 33 MEQ/L (21-32); CHLORIDE LEVEL 100 MEQ/L (98-107); GLOMERULAR FILTRATION RATE > 60.0 (>51); GLUCOSE, FASTING 88 MG/DL (70-105); POTASSIUM SERUM 3.6 MEQ/L (3.5-5.1); SODIUM LEVEL 139 MEQ/L (136-145); TOTAL PROTEIN 6.6 GM/DL (6.4-8.2)
[2016-10-13] MEDS ORDERED: GASTROGRAFIN SOLUTION 30ML (Q9963) PO ONE (23:30)
[2016-10-14] MEDS ORDERED: ISOVUE-370 76% 100ML VIAL (Q9967) As Ordered ONE (00:10)
--- NOTE | 2016-10-14 01:10 | REPUSA ---
CLINICAL HISTORY: Abdominal pain. TECHNIQUE: Multiple axial, sagittal and coronal CT images were obtained through the abdomen and pelvi s after administration of oral and intravenous contrast material. COMMENTS: Comparison is made to prior exam performed on 07/19/2016. The liver remains mildly enlarged. There is mild increase in biliary ductal dilatation. The spleen re falguni moderately enlarged. The gallbladder is surgically absent. Slippage of the common bile duct terra nt into the third portion of the duodenum. Only the superior tip of the stent remains in the most dis kirit aspect of the common bile duct. Stones and debris are noted in the distal aspect of the common bi le duct with the largest measuring 7 mm. The common bile duct measures 14 mm in its largest transvers e dimension. Unchanged diffuse thickening of the wall of the stomach. The pancreas is of normal conto ur and attenuation characteristics. There is no change in right adrenal mass. Both kidneys demonstrate prompt and equal nephrograms. The kidneys are normal in size, shape and conf iguration. There is no evidence of renal or ureteral mass. No renal or ureteral calculi are identifie d. There is no hydroureter or hydronephrosis. No evidence for appendicitis. There is no bowel wall thickening. No evidence for small or large roberto l obstruction. There is minimal free pelvic fluid.. Moderate large bowel fecal stasis. There is no evidence of intrinsic or extrinsic bladder mass. There is no pelvic lymphadenopathy. Dist ended bladder. Images of the lung bases show no evidence of pleural or parenchymal mass. There are no pleural effusi ons. The bony structures are free of lytic or blastic lesions. Multilevel degenerative changes are seen in volving the thoracolumbar spine. Scattered calcifications are seen involving the aorta and major bran ches compatible with atherosclerosis. Unremarkable right hip metallic screw. IMPRESSION: Slippage of the common bile duct stent into the distal aspect of the CBD with most of it in the third portion of the duodenum. Stones and debris are noted in the distal aspect of the common bile duct. Increased biliary ductal dilation. Rest solution of pneumobilia. Mild increase in constipation. Thickened stomach is unchanged. Underdistention versus gastritis. Minimal free pelvic fluid is unchanged. Unchanged hepatosplenomegaly. Distended bladder. Please evaluate to exclude urinary retention. Thank you for your kind referral of this patient.
[2016-10-14] MEDS ORDERED: HYDROmorphone HCL 1 MG/ML SYRINGE (J1170) IV ONE ×2 (04:15)
[2016-10-14] MEDS ORDERED: PROMETHAZINE 25 MG TAB PO PRN (06:15)
[2016-10-14] MEDS ORDERED: SENNA 8.6 MG TAB (SENOKOT) PO PRN (06:15)
[2016-10-14] MEDS ORDERED: oxyCODONE 40 MG CR TAB PO SCH (06:15)
[2016-10-14] MEDS ORDERED: TRIAMCINOLONE ACET 0.1% CREAM 15 GM TOP PRN (06:15)
[2016-10-14] MEDS ORDERED: ONDANSETRON 4MG/2ML VIAL (J2405) IV PRN (06:15)
[2016-10-14] MEDS ORDERED: MAGNESIUM CITRATE 300 ML BTL PO PRN (06:15)
[2016-10-14] MEDS ORDERED: BISACODYL 10 MG SUPP PR PRN ×2 (06:15)
[2016-10-14] MEDS ORDERED: AZELASTINE 137MCG NASAL SPY 30 ML (ASTELIN) PRN (06:15)
[2016-10-14] MEDS ORDERED: C1 ESTERASE INHIBITOR 500 UNIT IV PRN (06:15)
[2016-10-14] MEDS ORDERED: tiZANidine 4 MG TAB PO PRN (06:15)
[2016-10-14] MEDS: oxyCODONE 5MG TAB PO PRN ×4 (08:18→22:43)
[2016-10-14 08:35] VITALS: BP 126/77
[2016-10-14] MEDS ORDERED: VITAMIN D 50,000 UNITS CAPSULE (ERGOCALCIFEROL 1.25MG) PO SCH (09:00)
--- NOTE | 2016-10-14 09:07 | HPEPDOC ---
General Date of Admission October 14, 2016 at 05:16 Primary Care Physician: Kamron Garcia Other Providers Filling Technician: Dr. Parra Attending Physician: JACK ZAMUDIO DO Chief Complaint The patient is a 55-year-old female admitted with a reason for visit of Abdominal Pain. Source: Patient, RN notes reviewed, Old records Exam Limitations: No limitations Timing/Duration: Day(s) (Last night) Associated Symptoms: Nausea, Vomiting (x2 episodes, non-bloody, fluid), Weakness History of Present Illness Ms. Herrera is a 55 year old female who presents to [facility] Emergency Department with worsening abdominal pain. Past medical history is significant for hereditary angioedema, C1 esterase deficiency, diastolic dysfunction with an LVEF 65-70%, hypertension, hepatitis B and C, left breast cancer, neuropathy, osteoporosis, kyphosis, scoliosis, degenerative disc disease, common bile duct dilitation, chronic anemia, chronic back pain, right adrenal mass, depression, tracheostomy. She states that she has been having pain attacks more frequently with the most recent one starting at 7PM last evening. She was taking a nap when the pain woke her up from sleep. She describes it as a constant pain associated with intermittently sharp, crampy pain as well as a pinching pain behind her left rib. The pain is throughout her abdomen. Denies radiating pain. Her pain medication helps some, but has been not been effective at the current moment in controlling her pain. Moving makes the pain worse. She is nauseous and has vomited twice, non-bloody. She admits to a chronic numbness and tingling in her right foot and fingertips. Admits to leg cramping, chronic back pain, an erythematous lesion on her coccyx, urinary frequency, weakness, history of falls without loss of consciousness or hitting her head, joint pain, shoulder pain, and hip pain. All other review of systems was negative. She states that after her stent removal and replacement on 07/22/2016 and subsequent follow-up with Dr. Parra, she has a referral appointment with a GI specialist in [place] on 10/26/2016. Previous admission was on 07/19/2016 and discharged on 07/26/2016 for acute exacerbation of her chronic abdominal pain. She did use one of her Berinerts, which did not resolve her pain. She had no significant abnormalities on CT of the abdomen, and the MRI of the abdomen did show a limited study, splenomegaly with dilated main pancreatic duct, no biliary duct dilation. The case was discussed with Dr. Parra, who did proceed to do an ERCP and exchange of stent in the biliary tree. The patient did gradually improve her symptomatology over the next 48-72 hours and was able to advance her diet. On day of discharge, she was felt to be back to her baseline and requested to be discharged today with followup appointment tomorrow with her pain management doctor and primary care doctor this coming week and will need appropriate followup with Dr. Parra. Patient states that she also was recently in [place] at the end of August for similar complaints. She had initially presented to [facility] where they noted on imaging that her CBD stent had shifted and recommended that she be transferred to another facility for ongoing care. According to the patient she was medically managed in [place] without any surgery performed. Hospitalist service was consulted for this current admission and patient was admitted for further medical management. Home Medications Scheduled Amlodipine Besylate (Amlodipine Besylate) 10 Mg Tab, 10 MG PO DAILY, (Reported) TAKES AT NOON Atenolol (Atenolol) 50 Mg Tab, 50 MG PO BID, (Reported) Calcium Carbonate (Tums Ultra 1000) 1,000 Mg Chw, 1,000 MG PO BID, (Reported) Cetirizine HCl (Cetirizine HCl) 10 Mg Tab, 10 MG PO DAILY, (Reported) Clonazepam (Clonazepam) 2 Mg Tab, 2 MG PO TID, (Reported) Docusate Sodium (Colace) 100 Mg Cap, 100 MG PO TID, (Reported) Duloxetine Hcl (Cymbalta) 30 Mg Cap, 60 MG PO DAILY, (Reported) Ergocalciferol (Vitamin D) 50,000 Unit Cap, 50,000 UNIT PO 1XWK, (Reported) TAKES AT NOON ON WEDNESDAYS Ferrous Sulfate (Ferrous Sulfate) 325 Mg Tab, 325 MG PO DAILY, (Reported) DOES NOT TAKE IF CONSTIPATED Hydrochlorothiazide (Hydrochlorothiazide) 50 Mg Tab, 50 MG PO DAILY, (Reported) Magnesium Oxide (Magnesium Oxide 400) 400 Mg Tab, 800 MG PO DAILY, (Reported) TAKES IN AFTERNOON Oxycodone HCl (Oxycontin) 40 Mg Tab, 40 MG PO Q12H, (Reported) Pantoprazole Sodium (Pantoprazole Sodium) 20 Mg Tab, 20 MG PO DAILY, (Reported) TAKES AT NOON Polyethylene Glycol (Miralax) 1 Pow Pow, 17 GM PO DAILY, (Reported) Polyethylene Glycol (Peg 3350) 1 Pkt Pow, 1 PKT PO BID Potassium Chloride (Klor-Con M10) 10 Meq Tabcr, 20 MEQ PO BID, (Reported) AFTERNOON AND QHS Pramipexole Dihydrochloride (Mirapex) 0.25 Mg Tab, 0.25 MG PO QHS, (Reported) Scheduled PRN Azelastine Hydrochloride (Azelastine HCl) 137 Mcg/Lusk Spr, 1 SPRAY NA DAILY PRN for ALLERGIES, (Reported) Bisacodyl (Dulcolax) 10 Mg Sup, 10 MG MI DAILY PRN for CONSTIPATION, (Reported) C1 Esterase Inhibitor (Human) (Berinert) 500 Unit Inj, 2,000 UNIT IV ASDIRECTED PRN for FLARE UP, (Reported) Magnesium Citrate (Citrate of Magnesia) 1 Tasha Tasha, 300 ML PO DAILY PRN for CONSTIPATION, (Reported) Oxycodone Hcl (Oxycodone HCl) 30 Mg Tab, 30 MG PO Q4H PRN for PAIN, (Reported) Penciclovir (Denavir) 1 Dose/5 Gm Cream, 1 DOSE TOP DAILY PRN for COLD SORE, ( Reported) APPLIED TO LIPS Promethazine HCl (Promethazine HCl) 25 Mg Tab, 25 MG PO BID PRN for NAUSEA, ( Reported) Senna (Senna-Lax) 8.6 Mg Tab, 1 TAB PO for CONSTIPATION, (Reported) Suvorexant (Belsomra) 20 Mg Tab, 20 MG PO QHS PRN for SLEEP, (Reported) Tizanidine Hydrochloride (Tizanidine HCl) 4 Mg Cap, 4 MG PO TID PRN for MUSCLE SPASMS, (Reported) Triamcinolone Acet (Triamcinolone Acetonide 0.1% Crm) 1 Dose/15 Gm Cr, 1 DOSE TOP BID PRN for RASH, (Reported) APPLY TO AFFECTED AREAS (PSORIASIS) Allergies Coded Allergies: Aspirin (Verified Allergy, Severe, TRIGGERS ANGIOEDEMA, 08/23/12) Codeine (Verified Allergy, Severe, EXACERBATES ANGIOEDEMA, 08/23/12) Ketorolac (Verified Allergy, Intermediate, HIVES, 05/16/16) PT HAS TAKEN IBUPROFEN IN THE PAST WITHOUT ANY ISSUES Penicillins (Verified Allergy, Intermediate, HIVES, RASH, 08/23/12) HIVES, WORSENS ANGIOEDEMA Pentazocine (Verified Adverse Reaction, Severe, HALLUCINATIONS, 08/23/12) Prochlorperazine (Verified Adverse Reaction, Severe, SEVERE ANXIETY, ) Gabapentin (Verified Adverse Reaction, Intermediate, CONFUSION, 08/23/12) Pregabalin (Verified Adverse Reaction, Intermediate, CONFUSION, 08/23/12) Morphine (Verified Adverse Reaction, Mild, HEADACHES,CONFUSION, 08/23/12) Past Medical History Medical History 1. Hereditary angioedema 2. C1 esterase deficiency 3. Diastolic dysfunction with an LVEF 65-70% 4. Hypertension 5. Hepatitis B and C 6. Left breast cancer 7. Neuropathy 8. Osteoporosis 9. Kphosis 10. Scoliosis 11. Degenerative disc disease 12. Common bile duct dilitation 13. Chronic anemia 14. Chronic back pain 15. Rght adrenal mass 16. Depression 17. Tracheostomy Surgical History 1. Cholecystectomy 2. Teeth removal 3. ERCP with CBD stent removal and replacement 4. ERCP 5. Multiple insertions and explantations of [id number] 6. AO screw for right hip fracture 7. Tracheostomy 8. Bronchoscopy 9. Multiple triple lumen catheter insertions 10. EGD 11. Modified radical mastectomy with chemotherapy 12. Appendectomy 13. 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 Dyspnea, Edema, Lt Headedness Gastrointestinal: Reports: Nausea, Vomiting (Two episodes, non-bloody), Abdominal Pain (Constant, intermittently sharp cramping), Constipation, Denies: Diarrhea, Melena, Hematochezia Genitourinary: Reports: Frequency, Denies: Dysuria, Incontinence, Hematuria Hematologic: Denies: Bruising Endocrine: Denies: Polydipsia Musculoskeletal: Reports: Shoulder Pain, Joint Pain, Other Symptoms (Leg cramping) Neurological: Reports: Weakness, Numbness (Right foot, fingertips) Physical Examination General Exam: Positive: Alert, Cooperative, No Acute Distress Eye Exam: Positive: PERRLA, Conjunctiva & lids normal, EOMI, Negative: Sclera icteric, Ptosis ENT Exam: Positive: Atraumatic, Mucous membr. moist/pink, Pharynx Normal, Tongue Midline, Nares Patent, Negative: Pharyngeal Edema Neck Exam: Positive: Supple, Negative: JVD, thyromegaly, Lymphadenopathy Chest Exam: Positive: Clear to auscultation, Normal air movement Heart Exam: Positive: Rate Normal, Regular Rhythm, Normal S1, Normal S2, Negative: Gallops, Murmurs, Rubs Telemetry: Positive: No significant arrhythmia Abdomen Exam: Positive: Normal bowel sounds, Soft, Tenderness (To palpation diffusely), Negative: Hepatospenomegaly, Mass, Hernia Extremity Exam: Positive: Normal pulses, Negative: Clubbing, Cyanosis, Edema, Tenderness, Swelling Skin Exam: Positive: Other skin issue (Healed venous stasis ulcers noted on bilateral lower extremities proximal to the ankle anteriorly) Neuro Exam: Positive: Normal Speech, Cranial Nerves 3-12 NL Other physical findings CT abdomen and pelvis with IV and oral contrast IMPRESSION: Slippage of the common bile duct stent into the distal aspect of the CBD with most of it in the third portion of the duodenum. Stones and debris are noted in the distal aspect of the common bile duct. Increased biliary ductal dilation. Rest solution of pneumobilia. Mild increase in constipation. Thickened stomach is unchanged. Underdistention versus gastritis. Minimal free pelvic fluid is unchanged. Unchanged hepatosplenomegaly. Distended bladder. Please evaluate to exclude urinary retention. Vital Signs Vital Signs Date Time Temp Pulse Resp B/P (MAP) Pulse Ox O2 Delivery O2 Flow Rate FiO2 10/14/16 07:57 146/93 (110) 10/14/16 07:42 74 94 10/14/16 05:16 16 10/13/16 22:13 98.6 Room Air Height (in): 60 Weight (kg): 67.59 BMI (kg): 29.1 Laboratory Data Labs 24H Laboratory Tests 2 10/13/16 22:37: White Blood Count 4.8, Red Blood Count 3.12L, Hemoglobin 8.9L, Hematocrit 26.9L , Mean Corpuscular Volume 86.2, Mean Corpuscular Hemoglobin 28.6, Mean Corpuscular Hemoglobin Concent 33.2, Red Cell Distribution Width 14.6H, Platelet Count 128L, Neutrophils (%) (Auto) 44.1, Lymphocytes (%) (Auto) 48.2H, Monocytes (%) (Auto) 3.9, Eosinophils (%) (Auto) 1.5, Basophils (%) (Auto) 0.6, Neutrophils # (Auto) 2.1, Lymphocytes # (Auto) 2.4, Monocytes # (Auto) 0.2, Eosinophils # (Auto) 0.1, Basophils # (Auto) 0.0, Large Unclassified Cells % 1.8 , Large Unclassified Cells # 0.1, Anion Gap 6L, Glomerular Filtration Rate > 60.0, Calcium Level 8.3L, Aspartate Amino Transf (AST/SGOT) 96H, Alanine Aminotransferase (ALT/SGPT) 107H, Alkaline Phosphatase 292H, Total Bilirubin 0.5 , Direct Bilirubin 0.2, Total Protein 6.6, Albumin 3.0L, Albumin/Globulin Ratio 0.83L, Lipase 100 10/13/16 22:57: Lactic Acid Level 0.5 CBC/BMP Laboratory Tests 10/13/16 22:37 Red Blood Count 3.12 L, Mean Corpuscular Volume 86.2, Mean Corpuscular Hemoglobin 28.6, Mean Corpuscular Hemoglobin Concent 33.2, Red Cell Distribution Width 14.6 H, Neutrophils (%) (Auto) 44.1, Lymphocytes (%) (Auto) 48.2 H, Monocytes (%) (Auto) 3.9, Eosinophils (%) (Auto) 1.5, Basophils (%) ( Auto) 0.6, Neutrophils # (Auto) 2.1, Lymphocytes # (Auto) 2.4, Monocytes # (Auto ) 0.2, Eosinophils # (Auto) 0.1, Basophils # (Auto) 0.0 Assessment/Plan Ms. Herrera is a 55 year old female with a past medical history is significant for hereditary angioedema, C1 esterase deficiency, diastolic dysfunction with an LVEF 65-70%, hypertension, hepatitis B and C, left breast cancer, neuropathy, osteoporosis, kyphosis, scoliosis, degenerative disc disease , common bile duct dilitation, chronic anemia, chronic back pain, right adrenal mass, depression, tracheostomy who presents with worsening abdominal pain. Plan / VTE VTE Prophylaxis Ordered?: Yes (TEDs and sequentials) Plan Plan Abdominal pain Imaging reveals shifting in the CBD stent. Patient has an appointment with a GI specialist in [place] on 10/26/2016. Continue home pain medication. Defer to day team for specific pain management. Could consider consulting pain management. General surgery has been consulted. Urinalysis obtained secondary to imaging findings. Nausea and vomiting Continue with zofran as needed. Continue with current home medication regimen. Anemia No active bleeding at this time. Appears hemodynamically stable. Continue ferrous sulfate. Hypertension Blood pressure currently optimally controlled. Continue amlodipine, atenolol, and hydrochlorothiazide with holding parameters. C1 esterase deficiency Continue home medication regimen. Patient may use home medication. Constipation Likely opioid induced. Continue with current home medication regimen. Depression Continue current home medication regimen. GERD Continue with protonix. Disposition Admit: Medical-surgical unit Anticipated hospitalization: 2 nights Attending: Dr. Talavera Diet: Continue Current (2g sodium diet) Activity: Encourage Ambulation Diagnostics: Check Labs, Repeat Labs in AM Anticipated Discharge: Home ALVARADO NICKERSON October 14, 2016 09:07
[2016-10-14] MEDS: FERROUS SULFATE 325MG TAB PO SCH (10:01)
[2016-10-14] MEDS: PANTOPRAZOLE 20 MG TAB PO SCH (10:01)
[2016-10-14] MEDS: MAGNESIUM OXIDE 400 MG TAB (MAG-OX) PO SCH (10:02)
[2016-10-14] MEDS: DOCUSATE SODIUM 100 MG CAP PO SCH ×3 (10:02→21:51)
[2016-10-14] MEDS: CALCIUM CARBONATE 500 MG CHEW U/D PO SCH ×2 (10:02→21:52)
[2016-10-14] MEDS: DULoxetine 30 MG CAP (CYMBALTA) PO SCH (10:03)
[2016-10-14] MEDS: amLODIPine 10 MG TAB PO SCH (10:03)
[2016-10-14] MEDS: POTASSIUM CHLORIDE 10 MEQ SR TABLET PO SCH ×2 (10:03→21:51)
[2016-10-14] MEDS: hydroCHLOROthiazide 25 MG TAB PO SCH (10:03)
[2016-10-14] MEDS: CETIRIZINE (ZyrTEC) 10 MG TAB PO SCH (10:04)
[2016-10-14] MEDS: MIRALAX *UNIT DOSE* 17GM PACKET PO SCH ×2 (10:04→21:49)
[2016-10-14] MEDS: ATENOLOL 50 MG TAB PO SCH ×2 (10:04→21:00)
[2016-10-14] MEDS: clonazePAM 1 MG TAB PO SCH ×3 (10:04→21:52)
[2016-10-14] MEDS: oxyCODONE 20 MG CR TAB PO SCH ×2 (10:05→21:54)
[2016-10-14] MEDS ORDERED: traMADol 50 MG TAB PO ONE (13:00)
[2016-10-14 13:35] VITALS: BP 125/74
[2016-10-14] MEDS: PRAMIPEXOLE 0.25 MG TAB PO SCH (21:49)
[2016-10-14 22:00] VITALS: BP 100/57
[2016-10-15] MEDS: oxyCODONE 5MG TAB PO PRN ×4 (04:38→23:17)
[2016-10-15] MEDS: SODIUM CHLORIDE 0.9% INJ 10 ML SYR IV PRN ×2 (05:14→17:36)
[2016-10-15 05:35] LABS: MEAN CORPUSCULAR HEMOGLOBIN 28.6 pg (27.0-33.0); MEAN CORPUSCULAR HGB CONC 33.2 g/dl (32.0-36.5); RED CELL DISTRIBUTION WIDTH 14.6 % (11.5-14.5); WHITE BLOOD COUNT 4.1 K/mm3 (4.0-10.0)
[2016-10-15 06:00] VITALS: BP 100/59
[2016-10-15 06:36] LABS: ALBUMIN 2.8 GM/DL (3.2-5.2); ALBUMIN/GLOBULIN RATIO 0.85 (1.00-1.93); ALKALINE PHOSPHATASE 249 U/L (45-117); ALT/SGPT 68 U/L (12-78); ANION GAP 5 MEQ/L (8-16); AST/SGOT 39 U/L (15-37); BILIRUBIN,TOTAL 0.4 MG/DL (0.2-1.0); BLOOD UREA NITROGEN 19 MG/DL (7-18); CALCIUM LEVEL 8.4 MG/DL (8.5-10.1); CARBON DIOXIDE LEVEL 34 MEQ/L (21-32); CHLORIDE LEVEL 102 MEQ/L (98-107); CREATININE FOR GFR 0.76 MG/DL (0.55-1.02); GLOMERULAR FILTRATION RATE > 60.0 (>51); GLUCOSE, FASTING 98 MG/DL (70-105); POTASSIUM SERUM 3.8 MEQ/L (3.5-5.1); SODIUM LEVEL 141 MEQ/L (136-145); TOTAL PROTEIN 6.1 GM/DL (6.4-8.2)
[2016-10-15] MEDS: hydroCHLOROthiazide 25 MG TAB PO SCH (09:00)
[2016-10-15] MEDS: amLODIPine 10 MG TAB PO SCH (09:00)
[2016-10-15] MEDS: ATENOLOL 50 MG TAB PO SCH ×2 (09:00→20:34)
[2016-10-15] MEDS: FERROUS SULFATE 325MG TAB PO SCH (09:38)
[2016-10-15] MEDS: MAGNESIUM OXIDE 400 MG TAB (MAG-OX) PO SCH (09:38)
[2016-10-15] MEDS: CALCIUM CARBONATE 500 MG CHEW U/D PO SCH ×2 (09:38→20:34)
[2016-10-15] MEDS: DULoxetine 30 MG CAP (CYMBALTA) PO SCH (09:39)
[2016-10-15] MEDS: MIRALAX *UNIT DOSE* 17GM PACKET PO SCH ×2 (09:40→20:34)
[2016-10-15] MEDS: DOCUSATE SODIUM 100 MG CAP PO SCH ×3 (09:40→20:33)
[2016-10-15] MEDS: PANTOPRAZOLE 20 MG TAB PO SCH (09:41)
[2016-10-15] MEDS: POTASSIUM CHLORIDE 10 MEQ SR TABLET PO SCH ×2 (09:41→20:34)
[2016-10-15] MEDS: clonazePAM 1 MG TAB PO SCH ×3 (09:42→20:34)
[2016-10-15] MEDS: SODIUM CHLORIDE 0.9% INJ 10 ML SYR IV SCH (09:44)
[2016-10-15] MEDS: CETIRIZINE (ZyrTEC) 10 MG TAB PO SCH (09:47)
[2016-10-15] MEDS: oxyCODONE 20 MG CR TAB PO SCH ×2 (09:48→20:27)
[2016-10-15] MEDS ORDERED: HYDROmorphone HCL 1 MG/ML SYRINGE (J1170) IV PRN (13:00)
--- NOTE | 2016-10-15 13:25 | CR ---
DATE OF CONSULTATION: 10/14/2016 HISTORY OF PRESENT ILLNESS: The patient is a 55-year-old white female who has progressive worsening back pain but complains of significant abdominal pain starting 24 hours prior to admission. This was constant, persistent across the upper abdomen and up into her upper abdomen, radiating into her back, radiating all across her mid abdomen and sides. She had some nausea with vomiting. She has had some chronic angioedema/abdominal pain issues in the past but more importantly, I was asked to see her since GI is not available at this time to make recommendations concerning her biliary stent/elevated liver function tests. The initial studies that were performed revealed common bile duct stent across the junction of the ampulla/duodenum, stones and debris were appreciated in the proximal common bile duct. There is some mild ductal dilatation. However, the patient's liver function tests revealed on admission no significant elevation of bilirubin. AST and ALT were slightly elevated. The patient's abdominal pain is not in the pattern of hepatic congestion/right upper quadrant pain, per se. PAST MEDICAL HISTORY: Significant for history of: 1. Hereditary angioedema. 2. C1 esterase deficiency. 3. Diastolic dysfunction. 4. Hypertension. 5. Hepatitis B and C. 6. Breast cancer. 7. Neuropathy. 8. Osteoporosis. 9. Kyphosis. 10. Scoliosis. 11. Degenerative disc disease. 12. Common bile duct dilatation. 13. Chronic anemia. 14. Chronic back pain. 15. Right adrenal mass. 16. Depression. 17. Tracheostomy. 18. Cholecystectomy. 19. Previous teeth removed. 20. Endoscopic retrograde cholangiopancreatography (ERCP). 21. Multiple insertions/exchanges of [id number]. 22. Right hip fracture surgery. 23. Tracheostomy. 24. Bronchoscopy. 25. Multiple triple-lumen catheter. 26. Esophagogastroduodenoscopy (EGD). 27. Modified radical mastectomy. 28. Appendectomy. 29. Tubal ligation. MEDICATIONS: Include the following: - amlodipine - atenolol - calcium - cetirizine - clonazepam - Docusate - duloxetine - vitamin D - iron - hydrochlorothiazide - magnesium oxide - oxycodone - pantoprazole - MiraLAX - potassium - Mirapex She has multiple as needed medications as well and multiple medication allergies. PHYSICAL EXAMINATION: Reveals a kyphotic female who appears older than her stated age. When I initially started talking to her, she seemed very comfortable without any significant complaints; however, once I passed about abdominal pain she developed facial grimacing and discomfort and stated that her pain was much more severe and quite problematic at that time. HEENT is unremarkable. NECK: Supple without adenopathy. LUNGS: Clear. HEART: Regular. ABDOMEN: Soft and diffusely uncomfortable to palpation but truly no peritoneal signs are appreciated. No hernias are appreciated. IMPRESSION AND PLAN: The patient has some elevated liver function tests, etiology of this could be multiple etiologies and from my standpoint, it is unlikely due the common bile duct obstruction at this time; however, it is not unreasonable to have Dr. Parra exchange the stent. If he can perform it during this admission that would be fine, but easily changing it out at some point in near future as an outpatient would be just as reasonable. From the standpoint of her abdominal pain that is throughout her abdomen, I do feel that there that there is no evidence of surgical abdomen present. More importantly, my concern at this point is that her pain that is out of portion to her physical findings are influenced by her multiple chronic pain issues. I am not convinced that this is an related to her hereditary angioedema. It is most likely related to some musculoskeletal issues associated with her scoliosis, degenerative joint disease, back surgery and fibromyalgia issues with chronic pain issues. I do feel that it is reasonable to have followup laboratories and watch the liver function tests. However, if these start to increase then I would recommend evaluation by GI here if they are available. If not, then she will need to be transferred out for possible stent replacement.
[2016-10-15] MEDS ORDERED: HYDROmorphone HCL 1 MG/ML SYRINGE (J1170) IV ONE (13:45)
[2016-10-15 14:00] VITALS: BP 110/64
--- NOTE | 2016-10-15 14:08 | IPN ---
DATE: 10/15/2016 55-year-old female seen at bedside. No overnight issues reported. She states her abdominal pain is about the same, but she is able to tolerate some p.o. intake today. Bowel movements are regular. She denies any dysuria or frequency. No fevers or chills are reported overnight. OBJECTIVE: Temperature 98.2, pulse 76, respiratory rate 16, blood pressure 105/63, SpO2 is 96% on room air. GENERAL: The patient appears to be in no acute distress. She is alert. HEENT: Unremarkable. LUNGS: Clear. HEART: Regular rhythm. ABDOMEN: Soft. EXTREMITIES: No edema or calf tenderness. LABORATORIES: White count 4.1, hemoglobin 8.3, platelets 137,000. Sodium 141, potassium 3.8, chloride 102, bicarb 34, anion gap 5, BUN 19, creatinine 0.76, glucose is 98. AST 39, ALT 68. Alkaline phosphatase 249, down from 292, lipase is unremarkable on admission. ASSESSMENT/PLAN: 1. Acute on chronic abdominal pain, which seems to be stable at the present, however, she did become tearful when we had a discussion about the appropriate long-term treatment plan. She currently follows with a provider out of [facility], which we will try to obtain that providers name. I did speak with pain management here who no longer sees this patient. At any rate, Dr. Quinn, the surgeon, did see the patient and did not feel there was anything surgical to be managed and did not feel that there was any organic cause to her abdominal pain including the stent that she had replaced last time with the bile duct. She does have a GI specialist she follows up with in [place], which she has an upcoming appointment, and I did discuss with the patient that I felt that some of her abdominal issues and chronic pain issues need to be managed better as an outpatient, that we may not be able to completely resolve this issue during her hospital stay and she will need close appropriate followup once she is discharged. Again, will try to get a hold of her provider to see if she can be seen tomorrow once she is discharged 2. Nausea and vomiting, resolved. 3. Chronic anemia, stable. 4. Hypertension, stable. 5. C1 esterase deficiency. Has Berinert available and appears to be stable. 6. Chronic constipation. This opioid did induced. 7. Depression. Continue on home medication. 8. Gastroesophageal reflux disease (GERD). Stable on Protonix. 9. Deep vein thrombosis (DVT) prophylaxis. Thromboembolic deterrent stockings (TEDS) and sequentials. DISPOSITION: Anticipate discharge tomorrow. Again, I am concerned that this patient does have significant opioid dependence and that we need to help her with further social and community support. I have asked patient and family services (PFS) to be involved with her as well and to see if there are some things that we can do to help keep her out of hospital and more appropriately controlled for her abdominal pain. She is agreeable to this plan as well.
[2016-10-15] MEDS: PRAMIPEXOLE 0.25 MG TAB PO SCH (20:33)
[2016-10-15 22:00] VITALS: BP 114/74
[2016-10-16] MEDS: oxyCODONE 5MG TAB PO PRN ×3 (03:36→14:43)
[2016-10-16] MEDS: SODIUM CHLORIDE 0.9% INJ 10 ML SYR IV PRN (05:32)
[2016-10-16 05:55] LABS: MEAN CORPUSCULAR HEMOGLOBIN 29.6 pg (27.0-33.0); MEAN CORPUSCULAR HGB CONC 34.2 g/dl (32.0-36.5); MEAN CORPUSCULAR VOLUME 86.4 fl (80.0-96.0); RED CELL DISTRIBUTION WIDTH 14.6 % (11.5-14.5); WHITE BLOOD COUNT 4.6 K/mm3 (4.0-10.0)
[2016-10-16 06:00] VITALS: BP 110/63
[2016-10-16 07:06] LABS: ALBUMIN 2.8 GM/DL (3.2-5.2); ALBUMIN/GLOBULIN RATIO 0.85 (1.00-1.93); ALKALINE PHOSPHATASE 261 U/L (45-117); ALT/SGPT 58 U/L (12-78); ANION GAP 5 MEQ/L (8-16); AST/SGOT 28 U/L (15-37); BILIRUBIN,TOTAL 0.3 MG/DL (0.2-1.0); BLOOD UREA NITROGEN 21 MG/DL (7-18); CALCIUM LEVEL 8.5 MG/DL (8.5-10.1); CARBON DIOXIDE LEVEL 30 MEQ/L (21-32); CHLORIDE LEVEL 106 MEQ/L (98-107); GLOMERULAR FILTRATION RATE > 60.0 (>51); GLUCOSE, FASTING 98 MG/DL (70-105); POTASSIUM SERUM 4.1 MEQ/L (3.5-5.1); SODIUM LEVEL 141 MEQ/L (136-145); TOTAL PROTEIN 6.1 GM/DL (6.4-8.2)
[2016-10-16] MEDS: DULoxetine 30 MG CAP (CYMBALTA) PO SCH (08:15)
[2016-10-16] MEDS: CETIRIZINE (ZyrTEC) 10 MG TAB PO SCH (08:16)
[2016-10-16] MEDS: MAGNESIUM OXIDE 400 MG TAB (MAG-OX) PO SCH (08:16)
[2016-10-16] MEDS: clonazePAM 1 MG TAB PO SCH ×2 (08:16→15:33)
[2016-10-16] MEDS: POTASSIUM CHLORIDE 10 MEQ SR TABLET PO SCH (08:16)
[2016-10-16] MEDS: FERROUS SULFATE 325MG TAB PO SCH (08:16)
[2016-10-16] MEDS: DOCUSATE SODIUM 100 MG CAP PO SCH ×2 (08:16→15:33)
[2016-10-16] MEDS: oxyCODONE 20 MG CR TAB PO SCH (08:16)
[2016-10-16 08:17] VITALS: BP 105/58
[2016-10-16] MEDS: amLODIPine 10 MG TAB PO SCH (08:17)
[2016-10-16] MEDS: CALCIUM CARBONATE 500 MG CHEW U/D PO SCH (08:17)
[2016-10-16] MEDS: SODIUM CHLORIDE 0.9% INJ 10 ML SYR IV SCH (08:17)
[2016-10-16] MEDS: hydroCHLOROthiazide 25 MG TAB PO SCH (08:17)
[2016-10-16] MEDS: MIRALAX *UNIT DOSE* 17GM PACKET PO SCH (08:17)
[2016-10-16] MEDS: ATENOLOL 50 MG TAB PO SCH (08:18)
[2016-10-16] MEDS: PANTOPRAZOLE 20 MG TAB PO SCH (08:27)
[2016-10-16 14:00] VITALS: BP 120/64
--- NOTE | 2016-10-16 14:30 | DSES ---
DATE OF ADMISSION: 10/14/2016 DATE OF DISCHARGE: 10/16/2016 PRIMARY CARE PROVIDER: Dr. Roque APPRENTICE PHOTOGRAPHER: Dr. Quinn GASTROINTESTINAL: Dr. Parra and [facility] PROCEDURES PERFORMED: None. COMPLICATIONS: None. ADMISSION/DISCHARGE DIAGNOSES: 1. Acute on chronic abdominal pain, multifactorial. 2. Nausea and vomiting, resolved. 3. Chronic anemia, stable. 4. Hypertension, stable. 5. C1 esterase deficiency. 6. Chronic constipation 7. Depression. 8. Gastroesophageal reflux disease (GERD). 9. Biliary stent placement, which appears to be non problematic at this time. BRIEF HOSPITAL COURSE: Ms. Herrera is a 55-year-old female patient that is familiar to the hospitalist service as well as our general surgery and GI service here at [facility]. She presented to the emergency department on 10/14/2016 with an acute on chronic exacerbation of her abdominal pain. She had a CT scan that did not demonstrate any significant new findings. Her laboratory data showed a normal white count. Electrolytes unremarkable. Her total and direct bilirubin have been unremarkable. AST today is 28 and ALT is 58 and alkaline phosphatase 261, which chronically does appear to be elevated with her chronic issues. Her lipase was 100. There were no signs of pancreatitis. No signs of biliary colic or obstructive jaundice. At any rate, she was evaluated by Dr. Simon. Appreciate her input and did not feel that there was any organic issues with her abdominal pain and did not feel this was related to her C1 esterase deficiency as well. She does not demonstrate any signs of angioedema and has not had to any use Berinert. For further information regarding intake physical, labs and diagnostics please refer to the H and P and Dr. Quinn's consult as well. We did have a lengthy discussion yesterday and today about her opioid dependence. My concern is that some of this abdominal pain needs to be addressed more thoroughly with Dr. Roque to have a workable contingency plan when she develops these acute exacerbation to help her stay out of the hospital as much as possible. She agreed that she would like to have better control and will address this with Dr. Roque the next time she sees him. At any rate, she is stable today. She is agreeable to discharge. PHYSICAL EXAMINATION: Temperature is 98.1, pulse 73, respiratory rate is 20, blood pressure (BP) 110/63, and SPO2 is 92% on room air. General: The patient appears to be in no acute distress. Is alert and oriented , pleasant. HEENT: Unremarkable. Lungs: Clear. Heart: Regular rate and rhythm. Abdomen: Soft. Extremities: No edema, no calf tenderness. LABORATORY DATA: White count is 4.6, hemoglobin 9.6, platelets 166,000. Sodium 141, potassium 4.1, chloride 106, bicarb 30, anion gap 5, BUN is 21, creatinine 0.7, glucose 98, total bilirubin 0.3, albumin is 2.8. DISCHARGE CONDITION: Good. DISPOSITION: Discharge to home. DISCHARGE MEDICATIONS (Continue on her home medications): - Norvasc 10 mg daily - atenolol 50 mg twice a day - Astelin 1 spray per nostril daily - Dulcolax 10 mg HI constipation - Berinert 2000 units as directed as needed - Tums 1000 mg twice a day - Zyrtec 10 mg daily - clonazepam 2 mg three times a day - Colace 100 mg three times a day - Cymbalta 60 mg daily - vitamin D 50,000 units once weekly - ferrous sulfate 325 mg daily - hydrochlorothiazide 50 mg daily - magnesium citrate as needed for constipation - magnesium oxide 800 mg daily - oxycodone 40 mg every 12 hours scheduled - pantoprazole 20 mg daily - Denavir one dose topically as needed for cold sores - MiraLax 17 grams daily - potassium chloride 20 mEq twice a day - Mirapex 0.25 mg at bedtime - promethazine 25 mg twice a day as needed nausea - senna 1 tablet as needed constipation - BELSOMRA 20 mg at bedtime as needed sleep - tizanidine 4 mg three times a day as needed muscle spasm - triamcinolone cream 0.1% cream applied daily as needed DISCHARGE INSTRUCTIONS: Discharge to home. Activity as tolerated. Regular diet. Follow up with Dr. Roque within the next week or so. She according to I-STOP has prescriptions at home and is not due for refills until October 22 or . Should she develop problems and need refills, she is instructed to follow up with Dr. Roque who takes care of these prescriptions for her. I informed her that I would not be writing any of these prescriptions since they are not due. She is instructed to seek medical attention if symptoms should worsen. She voices understanding. The discharge took 35 minutes. [facility] HOSPITALInés
== END 2016-10-16 16:43 | disposition home health service (06) | DRG 813 ==
LOC: EDBD 22:03 → M ED 23:01 → M ED INP 10-14 05:16 → M MS4PR 10-14 08:35 → M MSPAV 10-14 13:28
PROVIDERS: ADMIT Internal Medicine; ATTEND Hospitalist
DX: T85.520A Displacement of bile duct prosthesis, initial encounter (principal); D84.1 Defects in the complement system; B19.10 Unspecified viral hepatitis B without hepatic coma; D64.9 Anemia, unspecified; F32.9 Major depressive disorder, single episode, unspecified; K21.9 Gastro-esophageal reflux disease without esophagitis; K59.00 Constipation, unspecified; R10.9 Unspecified abdominal pain; Z79.899 Other long term (current) drug therapy; Z85.3 Personal history of malignant neoplasm of breast; B19.20 Unspecified viral hepatitis C without hepatic coma; R11.2 Nausea with vomiting, unspecified; M40.209 Unspecified kyphosis, site unspecified

== ENCOUNTER 2016-12-08 08:48 | Day surgery (SDC) | payer OTHER ==
[~2016-12-08] VITALS: Ht 152.4 cm; Wt 61.8 kg
[~2016-12-08 08:48] MED LIST changes: +CALC500T49 PO; +CIPR-249 PO; -CIPR500T89 PO; -COLA100C3 PO; +COLA100C5 PO; +LEVA1TAB2 PO; -LEVA500T PO; +MULT1TAB10 PO; +OXYC-405 PO; -OXYC1TAB57 PO; -OXYC40TA13 PO; +OXYC40TA29 PO; -PROM50TA2 PO; +PROM50TA4 PO; +SENN18TA PO; -SENN1TAB4 PO; +TRAZ-136 PO; -TRAZ100T4 PO; +TYLE500T78 PO; +VITA-93 PO; +VITA100067 PO; +VITA1CAP40 PO; -VITA50003 PO
[2016-12-08] MEDS ORDERED: LR 1,000 ML IV ONE (09:00)
[2016-12-08] MEDS ORDERED: LIDOCAINE W/EPINEPHRINE 1% 20ML VIAL As Ordered ONE (09:24)
[2016-12-08 09:58] LABS: MEAN CORPUSCULAR HEMOGLOBIN 28.8 pg (27.0-33.0); MEAN CORPUSCULAR HGB CONC 33.9 g/dl (32.0-36.5); MEAN CORPUSCULAR VOLUME 84.9 fl (80.0-96.0); RED CELL DISTRIBUTION WIDTH 13.8 % (11.5-14.5); WHITE BLOOD COUNT 3.1 K/mm3 (4.0-10.0)
[2016-12-08] MEDS ORDERED: SILVER NITRATE APPLICATOR As Ordered ONE (10:10)
[2016-12-08] MEDS ORDERED: MIDAZOLAM INJ 5 MG/ML VIAL (J2250) As Ordered ONE (10:14)
[2016-12-08] MEDS ORDERED: PROPOFOL 200 MG/20 ML VIAL As Ordered ONE (10:15)
[2016-12-08] MEDS ORDERED: MIDAZOLAM INJ 2 MG/2 ML VIAL (J2250) As Ordered ONE (10:39)
[2016-12-08] MEDS ORDERED: POLYSPORIN TOPICAL OINTMENT 15GM As Ordered ONE (10:45)
[2016-12-08] MEDS ORDERED: fentaNYL 100 MCG/2 ML INJECTION (J3010) As Ordered ONE (10:45)
[2016-12-08] MEDS ORDERED: BACITRACIN OINT 30GM As Ordered ONE (10:46)
[2016-12-08] MEDS ORDERED: LR 1,000 ML IV SCH ×2 (11:00→11:15)
[2016-12-08] MEDS ORDERED: fentaNYL 100 MCG/2 ML INJECTION (J3010) IV PRN (11:15)
[2016-12-08] MEDS ORDERED: ONDANSETRON 4MG/2ML VIAL (J2405) IV PRN (11:15)
[2016-12-08 11:17] LABS: ALBUMIN 3.1 GM/DL (3.2-5.2); ALBUMIN/GLOBULIN RATIO 0.94 (1.00-1.93); ALKALINE PHOSPHATASE 109 U/L (45-117); ALT/SGPT 18 U/L (12-78); ANION GAP 6 MEQ/L (8-16); AST/SGOT 19 U/L (15-37); BILIRUBIN,TOTAL 0.4 MG/DL (0.2-1.0); BLOOD UREA NITROGEN 17 MG/DL (7-18); CALCIUM LEVEL 8.7 MG/DL (8.5-10.1); CARBON DIOXIDE LEVEL 34 MEQ/L (21-32); CHLORIDE LEVEL 102 MEQ/L (98-107); CREATININE FOR GFR 0.78 MG/DL (0.55-1.02); GLOMERULAR FILTRATION RATE > 60.0 (>51); GLUCOSE, FASTING 96 MG/DL (70-105); SODIUM LEVEL 142 MEQ/L (136-145); TOTAL PROTEIN 6.4 GM/DL (6.4-8.2)
[2016-12-08 11:19] LABS: POTASSIUM SERUM 2.8 MEQ/L (3.5-5.1)
[2016-12-08] MEDS ORDERED: POTASSIUM CHLORIDE 10 MEQ SR TABLET PO ONE ×3 (11:30→16:00)
[2016-12-08 13:23] LABS: POTASSIUM SERUM 2.8 MEQ/L (3.5-5.1)
[2016-12-08] MEDS ORDERED: oxyCODONE 5MG TAB As Ordered ONE (13:32)
[2016-12-08] MEDS ORDERED: oxyCODONE 5MG TAB PO ONE (13:45)
[2016-12-08] MEDS ORDERED: oxyBUTYnin 5 MG TAB PO ONE (13:45)
[2016-12-08 14:12] LABS: MAGNESIUM LEVEL 1.8 MG/DL (1.8-2.4)
[2016-12-08] MEDS ORDERED: MAGNESIUM CITRATE 300 ML BTL PO PRN (14:15)
[2016-12-08] MEDS ORDERED: PENCICLOVIR 1% CREAM 5GM TOP PRN (14:15)
[2016-12-08] MEDS ORDERED: C1 ESTERASE INHIBITOR 500 UNIT IV PRN ×3 (14:15→16:33)
[2016-12-08] MEDS ORDERED: AZELASTINE 137MCG NASAL SPY 30 ML (ASTELIN) PRN (14:15)
[2016-12-08] MEDS ORDERED: BISACODYL 10 MG SUPP PR PRN (14:15)
[2016-12-08] MEDS ORDERED: TRIAMCINOLONE ACET 0.1% CREAM 15 GM TOP PRN (14:15)
[2016-12-08] MEDS ORDERED: ACETAMINOPHEN 500 MG TAB PO PRN (14:15)
[2016-12-08] MEDS ORDERED: tiZANidine 4 MG TAB PO PRN (14:15)
[2016-12-08] MEDS ORDERED: POTASSIUM CHLORIDE INJ 20 MEQ in LR 1,000 ML IV SCH (14:30)
[2016-12-08] MEDS ORDERED: MAG SULF 1GM/100ML (MAG RUN) 1 GM in APPROPRIATE DILUENT 1 EA IV ONE (14:30)
--- NOTE | 2016-12-08 14:34 | CR.PDOC ---
[facility] Consultation Consultation CONSULTATION REPORT FOR: Dr Hammond REASON FOR CONSULTATION: Medical Management DATE OF VISIT: 12/08/16 ATTENDING: Dr. Odom PCP: Terrie FERGUSON HPI: 55year old F POD 0 s/p removal of granulation tissue from stoma as per ENT seen in PACU. No acute medical complaints today. Denies any fevers, chills, weakness, fatigue, Headache, Chest Pain, Shortness of breath, cough, palpitations, abdominal pain, N/V/D or changes in bowel or bladder habits. PMHx: Medical History 1. Hereditary angioedema 2. C1 esterase deficiency 3. Diastolic dysfunction with an LVEF 65-70% 4. Hypertension 5. Hepatitis B and C 6. Left breast cancer 7. Neuropathy 8. Osteoporosis 9. Kyphosis 10. Scoliosis 11. Degenerative disc disease 12. Common bile duct dilatation 13. Chronic anemia 14. Chronic back pain 15. Right adrenal mass 16. Depression 17. Tracheostomy Surgical History 1. Cholecystectomy 2. Teeth removal 3. ERCP with CBD stent removal and replacement 4. ERCP 5. Multiple insertions and explantations of [id number] 6. AO screw for right hip fracture 7. Tracheostomy 8. Bronchoscopy 9. Multiple triple lumen catheter insertions 10. EGD 11. Modified radical mastectomy with chemotherapy 12. Appendectomy 13. 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 PE: GEN: 55yoF, appears stated age. Well-nourished, well developed. Alert and oriented x 3. Pleasant, interactive. HEENT: Normocephalic, atraumatic. Pupils are equal, round, and reactive to light. Extraocular movements are intact. No nystagmus appreciated. Sclera are nonicteric. Conjunctiva without injection. Nose midline. Nasal turbinates without bogginess. EACs both patent BL. TMs both visualized and [place] with good cone of light, no bulging or erythema. No facial asymmetry. Moist mucous membranes. Pharynx pink and moist, no cobblestoning. Neck supple. Dressing noted around surgical site. CHEST: Regular rate and rhythm, +S1, +S2 LUNGS: Clear to auscultation bilaterally. No wheezes, rales, or rhonchi. Breathing appears symmetric and easy. Patient is speaking in full sentences. No accessory muscle use. ABD: Round, soft, non-tender, non-distended. +Bowel sounds throughout. No rebound or guarding. No costovertebral angle tenderness. EXT: Pulses 2+ bilaterally dorsalis pedis and radial. No lower extremity edema appreciated. SKIN: [place], dry, warm. Capillary refill <2sec. No rashes. NEURO: Alert and oriented x 3. Cranial nerves III-XII are intact. No focal deficits appreciated. A&P: 55year old F POD 0 s/p removal of granulation tissue from stoma as per ENT seen in PACU. 1. POD #0 s/p removal granulation tissue from stoma. mgmt as per ENT. 2. Hypokalemia. S/P po supplement. IVF with supplement. Recheck at 6 pm. 3. Anemia. Continue ferrous sulfate. 4. HTN. Blood pressure currently controlled. Continue atenolol, and hydrochlorothiazide. 5. C1 esterase deficiency. Continue home medication regimen. Patient may use home medication. 6. Constipation. Continue with current home medication regimen. 7. Depression. Continue current home medication regimen. 8. GERD. Continue with protonix. DVT prophylaxis as per attending. Thank you for your consultation. We will continue to follow along with you. Vital Signs/I&O Vital Signs Date Time Temp Pulse Resp B/P (MAP) Pulse Ox O2 Delivery O2 Flow Rate FiO2 12/08/16 14:08 72 18 118/70 (86) 92 Room Air 12/08/16 12:10 3 12/08/16 10:55 97.6 Laboratory Data Labs 24H Laboratory Tests 2 12/08/16 09:51: Anion Gap 6L, Glomerular Filtration Rate > 60.0, Blood Urea Nitrogen 17, Creatinine 0.78, Sodium Level 142, Potassium Level 2.8*L, Chloride Level 102, Carbon Dioxide Level 34H, Calcium Level 8.7, Aspartate Amino Transf (AST/SGOT) 19, Alanine Aminotransferase (ALT/SGPT) 18, Alkaline Phosphatase 109, Total Bilirubin 0.4, Total Protein 6.4, Albumin 3.1L, Albumin/Globulin Ratio 0.94L 12/08/16 12:40: Anion Gap 4L, Sodium Level 142, Potassium Level 2.8*L, Chloride Level 103, Carbon Dioxide Level 35H, Magnesium Level 1.8 CBC/BMP Laboratory Tests 12/08/16 09:51 Red Blood Count 2.93 L, Mean Corpuscular Volume 84.9, Mean Corpuscular Hemoglobin 28.8, Mean Corpuscular Hemoglobin Concent 33.9, Red Cell Distribution Width 13.8, Calcium Level 8.7, Aspartate Amino Transf (AST/SGOT) 19 , Alanine Aminotransferase (ALT/SGPT) 18, Alkaline Phosphatase 109, Total Bilirubin 0.4, Total Protein 6.4, Albumin 3.1 L 12/08/16 12:40 Anion Gap 4 L Allergies Coded Allergies: Aspirin (Verified Allergy, Severe, TRIGGERS ANGIOEDEMA, 08/23/12) Codeine (Verified Allergy, Severe, EXACERBATES ANGIOEDEMA, 08/23/12) Ketorolac (Verified Allergy, Intermediate, HIVES, 05/16/16) PT HAS TAKEN IBUPROFEN IN THE PAST WITHOUT ANY ISSUES Penicillins (Verified Allergy, Intermediate, HIVES, RASH, 08/23/12) HIVES, WORSENS ANGIOEDEMA Pentazocine (Verified Adverse Reaction, Severe, HALLUCINATIONS, 08/23/12) Prochlorperazine (Verified Adverse Reaction, Severe, SEVERE ANXIETY, ) Gabapentin (Verified Adverse Reaction, Intermediate, CONFUSION, 08/23/12) Pregabalin (Verified Adverse Reaction, Intermediate, CONFUSION, 08/23/12) Morphine (Verified Adverse Reaction, Mild, HEADACHES,CONFUSION, 08/23/12) Home Medications Scheduled Amlodipine Besylate (Amlodipine Besylate) 10 Mg Tab, 10 MG PO DAILY, (Reported) TAKES AT NOON Atenolol (Atenolol) 50 Mg Tab, 50 MG PO BID, (Reported) Calcium (Calcium) 500 Mg Tab, 500 MG PO BID, (Reported) Calcium Carbonate (Tums Ultra 1000) 1,000 Mg Chw, 1,000 MG PO BID, (Reported) Cetirizine HCl (Cetirizine HCl) 10 Mg Tab, 10 MG PO DAILY, (Reported) Clonazepam (Klonopin) 2 Mg Tab, 2 MG PO TID, (Reported) Docusate Sodium (Colace) 100 Mg Cap, 100 MG PO TID, (Reported) Duloxetine Hcl (Cymbalta) 30 Mg Cap, 60 MG PO DAILY, (Reported) Ergocalciferol (Vitamin D) 50,000 Unit Cap, 50,000 UNIT PO 1XWK, (Reported) TAKES AT NOON ON WEDNESDAYS Ferrous Sulfate (Ferrous Sulfate) 325 Mg Tab, 325 MG PO DAILY, (Reported) DOES NOT TAKE IF CONSTIPATED Hydrochlorothiazide (Hydrochlorothiazide) 50 Mg Tab, 50 MG PO DAILY, (Reported) Magnesium Oxide (Magnesium Oxide 400) 400 Mg Tab, 800 MG PO DAILY, (Reported) TAKES IN AFTERNOON Multivitamins (Multivitamin Adults) 1 Tab Tab, 1 TAB PO DAILY, (Reported) Oxycodone HCl (Oxycontin) 40 Mg Tab, 40 MG PO Q12H, (Reported) Pantoprazole Sodium (Pantoprazole Sodium) 20 Mg Tab, 20 MG PO DAILY, (Reported) TAKES AT NOON Polyethylene Glycol (Miralax) 1 Pow Pow, 17 GM PO DAILY, (Reported) Potassium Chloride (Klor-Con M10) 10 Meq Tabcr, 20 MEQ PO BID, (Reported) AFTERNOON AND QHS Pramipexole Dihydrochloride (Mirapex) 0.25 Mg Tab, 0.25 MG PO QHS, (Reported) Pyridoxine HCl (Vitamin B-6) 500 Mg Tab, 500 MG PO DAILY, (Reported) Vitamin D (Vitamin D) 1,000 Unit Cap, 5,000 UNIT PO DAILY, (Reported) Scheduled PRN Acetaminophen (Tylenol Extra Strength) 500 Mg Tab, 500 MG PO Q6HP PRN for PAIN, (Reported) Azelastine Hydrochloride (Azelastine HCl) 137 Mcg/[place] Spr, 1 SPRAY NA DAILY PRN for ALLERGIES, (Reported) Bisacodyl (Dulcolax) 10 Mg Sup, 10 MG MN DAILY PRN for CONSTIPATION, (Reported) C1 Esterase Inhibitor (Human) (Berinert) 500 Unit Inj, 2,000 UNIT IV ASDIRECTED PRN for FLARE UP, (Reported) Magnesium Citrate (Citrate of Magnesia) 1 Tasha Tasha, 300 ML PO DAILY PRN for CONSTIPATION, (Reported) Oxycodone Hcl (Oxycodone HCl) 30 Mg Tab, 30 MG PO Q4H PRN for PAIN, (Reported) Penciclovir (Denavir) 1 Dose/5 Gm Cream, 1 DOSE TOP DAILY PRN for COLD SORE, ( Reported) APPLIED TO LIPS Promethazine HCl (Promethazine HCl) 25 Mg Tab, 25 MG PO BID PRN for NAUSEA, ( Reported) Senna (Senna-Lax) 8.6 Mg Tab, 1 TAB PO for CONSTIPATION, (Reported) Tizanidine Hydrochloride (Tizanidine HCl) 4 Mg Cap, 4 MG PO TID PRN for MUSCLE SPASMS, (Reported) Triamcinolone Acet (Triamcinolone Acetonide 0.1% Crm) 1 Dose/15 Gm Cr, 1 DOSE TOP BID PRN for RASH, (Reported) APPLY TO AFFECTED AREAS (PSORIASIS) Argelia Cohw Dec 08, 2016 14:34
[2016-12-08 15:15] VITALS: BP 118/65; O2SAT 100
[2016-12-08 15:34] LABS: ANION GAP 4 MEQ/L (8-16); CARBON DIOXIDE LEVEL 36 MEQ/L (21-32); CHLORIDE LEVEL 102 MEQ/L (98-107); POTASSIUM SERUM 3.2 MEQ/L (3.5-5.1); SODIUM LEVEL 142 MEQ/L (136-145)
[2016-12-08 15:45] VITALS: BP 117/66
[2016-12-08] MEDS: VITAMIN D 1,000 INTERNATIONAL UNITS TABLET PO SCH (16:16)
[2016-12-08] MEDS: DULoxetine 30 MG CAP (CYMBALTA) PO SCH (16:17)
[2016-12-08] MEDS: MULTIVITAMINS/MINERALS THERAP 1 TAB PO SCH (16:17)
[2016-12-08] MEDS: MAGNESIUM OXIDE 400 MG TAB (MAG-OX) PO SCH (16:18)
[2016-12-08] MEDS: clonazePAM 1 MG TAB PO SCH ×2 (16:19→21:41)
[2016-12-08] MEDS: amLODIPine 10 MG TAB PO SCH (16:19)
[2016-12-08] MEDS: DOCUSATE SODIUM 100 MG CAP PO SCH ×2 (16:19→21:41)
[2016-12-08] MEDS: FERROUS SULFATE 325MG TAB PO SCH (16:19)
[2016-12-08 16:45] VITALS: BP 119/68; O2SAT 100
[2016-12-08 17:45] VITALS: BP 114/62
[2016-12-08] MEDS ORDERED: oxyCODONE 5MG TAB PO SCH (17:45)
[2016-12-08] MEDS: oxyCODONE 5MG TAB PO PRN ×2 (18:11→22:50)
[2016-12-08] MEDS: PANTOPRAZOLE 20 MG TAB PO SCH (18:11)
[2016-12-08 18:23] LABS: ANION GAP 5 MEQ/L (8-16); BLOOD UREA NITROGEN 14 MG/DL (7-18); CARBON DIOXIDE LEVEL 34 MEQ/L (21-32); CHLORIDE LEVEL 102 MEQ/L (98-107); CREATININE FOR GFR 0.67 MG/DL (0.55-1.02); GLOMERULAR FILTRATION RATE > 60.0 (>51); GLUCOSE, FASTING 105 MG/DL (70-105); POTASSIUM SERUM 3.5 MEQ/L (3.5-5.1); SODIUM LEVEL 141 MEQ/L (136-145)
[2016-12-08 18:45] VITALS: BP 116/67
[2016-12-08 19:45] VITALS: BP 105/57
[2016-12-08] MEDS ORDERED: PRAMIPEXOLE 0.25 MG TAB PO SCH (21:00)
[2016-12-08] MEDS: POTASSIUM CHLORIDE 10 MEQ SR TABLET PO SCH (21:41)
[2016-12-08] MEDS: oxyCODONE 20 MG CR TAB PO SCH (21:41)
[2016-12-08] MEDS: ATENOLOL 50 MG TAB PO SCH (21:42)
[2016-12-08] MEDS: CALCIUM CARBONATE 500 MG CHEW U/D PO SCH (21:42)
[2016-12-08] MEDS: OYSTER SHELL CALCIUM 500 MG TAB PO SCH (21:42)
[2016-12-09] VITALS: BP 104/56; O2SAT 100
[2016-12-09] MEDS ORDERED: POTASSIUM CHLORIDE INJ 20 MEQ in LR 1,000 ML IV SCH (00:35)
[2016-12-09] MEDS: oxyCODONE 5MG TAB PO PRN ×3 (03:20→13:23)
[2016-12-09 04:00] VITALS: BP 103/57; O2SAT 100
[2016-12-09 05:55] LABS: MEAN CORPUSCULAR HEMOGLOBIN 29.2 pg (27.0-33.0); MEAN CORPUSCULAR HGB CONC 33.4 g/dl (32.0-36.5); MEAN CORPUSCULAR VOLUME 87.4 fl (80.0-96.0); RED CELL DISTRIBUTION WIDTH 13.8 % (11.5-14.5); WHITE BLOOD COUNT 3.5 K/mm3 (4.0-10.0)
[2016-12-09 06:39] LABS: ANION GAP 1 MEQ/L (8-16); BLOOD UREA NITROGEN 13 MG/DL (7-18); CALCIUM LEVEL 8.8 MG/DL (8.5-10.1); CARBON DIOXIDE LEVEL 35 MEQ/L (21-32); CHLORIDE LEVEL 105 MEQ/L (98-107); CREATININE FOR GFR 0.59 MG/DL (0.55-1.02); GLOMERULAR FILTRATION RATE > 60.0 (>51); GLUCOSE, FASTING 89 MG/DL (70-105); MAGNESIUM LEVEL 2.1 MG/DL (1.8-2.4); POTASSIUM SERUM 4.9 MEQ/L (3.5-5.1); SODIUM LEVEL 141 MEQ/L (136-145)
[2016-12-09 07:58] VITALS: BP_SYST 120; BP_SYST 134; BP_DIAS 56; BP_DIAS 79
[2016-12-09] MEDS: VITAMIN D 1,000 INTERNATIONAL UNITS TABLET PO SCH (08:08)
[2016-12-09] MEDS: oxyCODONE 20 MG CR TAB PO SCH (08:09)
[2016-12-09] MEDS: CALCIUM CARBONATE 500 MG CHEW U/D PO SCH (08:09)
[2016-12-09] MEDS: POTASSIUM CHLORIDE 10 MEQ SR TABLET PO SCH (08:10)
[2016-12-09] MEDS: MAGNESIUM OXIDE 400 MG TAB (MAG-OX) PO SCH (08:10)
[2016-12-09] MEDS: clonazePAM 1 MG TAB PO SCH ×2 (08:10→17:03)
[2016-12-09] MEDS: PANTOPRAZOLE 20 MG TAB PO SCH (08:10)
[2016-12-09] MEDS: amLODIPine 10 MG TAB PO SCH (08:11)
[2016-12-09] MEDS: DULoxetine 30 MG CAP (CYMBALTA) PO SCH (08:11)
[2016-12-09] MEDS: FERROUS SULFATE 325MG TAB PO SCH (08:11)
[2016-12-09] MEDS: OYSTER SHELL CALCIUM 500 MG TAB PO SCH (08:11)
[2016-12-09] MEDS: DOCUSATE SODIUM 100 MG CAP PO SCH ×2 (08:11→17:03)
[2016-12-09] MEDS: MULTIVITAMINS/MINERALS THERAP 1 TAB PO SCH (08:11)
[2016-12-09 08:12] VITALS: BP 126/56
[2016-12-09] MEDS: ATENOLOL 50 MG TAB PO SCH (08:12)
--- NOTE | 2016-12-09 08:23 | IPNPDOC ---
Text Note Date of Service The patient was seen on 12/09/16. NOTE HPI: 55 year old female post op day #1 for Right tracheal stoma mass excision admitted for hypokalemia. Patient is doing well this morning. She states that she has some back pain from sleeping in the hospital bed and not ambulating much , and she would like a lidocaine patch. She states that her tracheal stoma is a little sore, but that she expected that with the procedure. She denies overnight bleeding from the tracheal stoma and states that she is breathing well. She says that she has less anxiety today. Per nursing there were no overnight events. ROS: denies palpitations, problems breathing, chest pain, nausea, vomiting, changes in bowel habits, fevers, chills. OBJECTIVE: Vitals: T 96.8 (Tmax 100.0) Pulse 72, Resp. Rate 18, BP 126/56, 97% Room air Neck: Trach Stoma is without erythema or exudate. There is a small amount of dried blood inferior, but no active bleeding or oozing from the operative site. Lungs: Clear to auscultation bilaterally, no wheezes, rhonchi or crackles Heart: Regular rate and rhythm, no murmurs, gallops, or rubs Extremities: no cyanosis noted, pulses are equal bilaterally Labs: K+ 4.9, Na+ 141, Cl- 105, CO2 35, BUN 13, Cr 0.59, Fasting Glucose 89 Assessment: 55 year old female post op day #1 for Right tracheal stoma mass excision admitted for hypokalemia, is doing well this morning and did not have any issues over night. Plan: 1. Right Tracheal Stoma Mass Excision: Post-Op Day #1, no fevers over night. Continue putting Bacitracin ointment on tracheal stoma. Ok to discharge to home. 2. Hypokalemia- resolved, K+ is 4.9 3. Back Pain- Lidocaine patch 5% ordered for one time use. VS,Fishbone, I+O VS, Fishbone, I+O Laboratory Tests 12/08/16 09:51 Red Blood Count 2.93 L, Mean Corpuscular Volume 84.9, Mean Corpuscular Hemoglobin 28.8, Mean Corpuscular Hemoglobin Concent 33.9, Red Cell Distribution Width 13.8, Calcium Level 8.7, Aspartate Amino Transf (AST/SGOT) 19 , Alanine Aminotransferase (ALT/SGPT) 18, Alkaline Phosphatase 109, Total Bilirubin 0.4, Total Protein 6.4, Albumin 3.1 L 12/08/16 12:40 Anion Gap 4 L 12/08/16 15:02 Anion Gap 4 L 12/08/16 17:55 Calcium Level 9.0 12/09/16 05:28 Red Blood Count 2.96 L, Mean Corpuscular Volume 87.4, Mean Corpuscular Hemoglobin 29.2, Mean Corpuscular Hemoglobin Concent 33.4, Red Cell Distribution Width 13.8, Calcium Level 8.8 Vital Signs Date Time Temp Pulse Resp B/P (MAP) Pulse Ox O2 Delivery O2 Flow Rate FiO2 12/09/16 08:12 72 126/56 12/09/16 08:09 18 12/09/16 08:01 Nasal Cannula 2.0 12/09/16 07:58 96.8 97 I&O- Last 24 Hours up to 6 AM 12/09/16 05:59 Intake Total 2540 ml Output Total 0 ml Balance 2540 ml ESTELITA HAAS DO Dec 09, 2016 08:23
[2016-12-09] MEDS ORDERED: LIDOCAINE 5% (LIDODERM) PATCH TD ONE (09:00)
[2016-12-09] MEDS ORDERED: CETIRIZINE (ZyrTEC) 10 MG TAB PO SCH (09:00)
[2016-12-09] MEDS ORDERED: hydroCHLOROthiazide 25 MG TAB PO SCH (09:00)
[2016-12-09] MEDS: BACITRACIN OINT 30GM TOP SCH ×2 (10:49→17:03)
[2016-12-09 12:00] VITALS: BP 115/58
[2016-12-09] MEDS ORDERED: **NOTE PATIENT COMMENT** MISC XX SCH (21:00)
--- NOTE | 2016-12-09 22:26 | IPN ---
DATE: 12/09/2016 SUBJECTIVE: Patient is seen and examined in the room today. Patient does not have any acute complaints or acute changes. I asked about patient's issue regarding the hypokalemia, and patient stated she has been having low potassium level chronically and, due to different reasons, patient has not been taking the supplement as instructed. Patient does carry a history of hepatitis B and C, patient suspects it may be due to frequent blood product transfusions in the 70s , but she never followed up with any specialist and patient never has received treatment. OBJECTIVE: VITAL SIGNS: Temperature 96.8, pulse 72, respirations 18, blood pressure 120/56 , pulse oximetry 97% in room air. GENERAL: No sign of acute distress. Alert and oriented times three. HEENT: Patient has a tracheostomy. Normocephalic, atraumatic. CARDIOVASCULAR: Positive S1, S2, regular rate. LUNGS: Clear to auscultation bilaterally. ABDOMEN: Soft, nontender, nondistended. Bowel sounds present. EXTREMITIES: No edema. No sign of cyanosis. LABORATORY DATA: WBC 3.5, hemoglobin 8.6, hematocrit 25.9, platelet count is 122. Sodium 141, potassium 4.9, chloride 105, carbon dioxide 35, BUN 13, creatinine 0.59, GFR greater than 60, fasting glucose 89, calcium 8.8, magnesium 2.1. Hepatitis panel shows negative for hepatitis A and hepatitis B. Hepatitis C antibody index is 3.2 and HCV RNA quantity is pending. ASSESSMENT AND PLAN: 1. Hypokalemia. Patient is receiving supplement currently. The level is within normal range. We recommend patient should continue her regimen as instructed. 2. Hypertension. While patient is in the hospital, patient's blood pressure has been in fairly good control. Patient is continued on atenolol 50 mg by mouth twice a day, Norvasc 10 mg by mouth daily, and hydrochlorothiazide 50 mg by mouth daily. If patient continues to have persistent severe hypokalemia, it may be appropriate for patient to discuss with the primary care provider with regard to adjusting the diuretic dosage or usage for her mild hypertension. 3. Hepatitis C. Initial lab test was performed. Patient tests positive for hepatitis C. Antibody level and quantitative RNA level is pending. We do highly recommend patient followup with primary care provider in obtaining an infectious disease specialist referral to follow patient's hepatitis C treatment. 4. Diastolic congestive heart failure. No sign of overload. 5. C1 esterase deficiency. 6. Hereditary angioedema. 7. History of left breast cancer. 8. Depression. 9. Gastroesophageal reflux disease, on Protonix. 10. Tracheostomy. Will defer the postprocedure care to the primary ear, nose, and throat (ENT) team. 11. Deep venous thrombosis (DVT) prophylaxis. MTDD
--- NOTE | 2016-12-31 09:09 | RO ---
DATE OF PROCEDURE: 12/08/2016 PREOPERATIVE DIAGNOSIS: Granulation tissue on the right lateral border of the tracheal stoma. POSTOPERATIVE DIAGNOSIS: Granulation tissue on the right lateral border of the tracheal stoma. PROCEDURE PERFORMED: Excision of granulation tissue from the right border of the tracheostomy stoma. SURGEON: Dr. Shantanu Santamaria CUTTER BRAKE LINING: ANESTHESIA: local sedation CLINICAL PREAMBLE: This 55-year-old woman who has had tracheostomy done many years ago due to recurrent angioedema is noted to have significant granulation tissue around the right side of the tracheal stoma. Management options included excision of the granulation tissue from the tracheostomy stoma site have been discussed. The patient understood and consented to the procedure. DESCRIPTION OF PROCEDURE: Patient was identified in preoperative holding and brought to the operating room in stable condition. In supine position on the operating table, patient was prepped and draped in the usual fashion in the supine position. The Manish tracheostomy tube was then withdrawn to allow the visualization of the granulation tissue along the right lateral border of the tracheal stoma. The base of the granulation tissue was infiltrated with 1% lidocaine with 1:100,000 epinephrine. The excision of the granulation tissue was then performed. The granulation tissue measured 1.5 cm in greatest diameter. Hemostasis was then achieved using silver nitrite. The edge of the granulation site was then reapproximated using #3-0 Monocryl suture. The Manish tracheostomy tube was then successfully replaced into the tracheal stoma without incident. The trach tie was then securely refastened as well. At the end of the procedure, sponge and instrument counts are correct. No complications were encountered. Estimated blood loss was less than 1 mL. Patient was then brought to the recovery room in stable condition. ERICK
== END 2016-12-09 18:00 | disposition home or self-care (01) ==
LOC: M SDC 08:48 → M PCU 15:07 → M SDC 12-09 18:00
PROVIDERS: ATTEND Otolaryngology
DX: J95.09 Other tracheostomy complication (principal); D84.1 Defects in the complement system; I25.10 Atherosclerotic heart disease of native coronary artery without angina pectoris; I10 Essential (primary) hypertension; K21.9 Gastro-esophageal reflux disease without esophagitis; Z85.3 Personal history of malignant neoplasm of breast; Z92.21 Personal history of antineoplastic chemotherapy; Z87.891 Personal history of nicotine dependence; Z79.899 Other long term (current) drug therapy; Z88.0 Allergy status to penicillin; Z88.8 Allergy status to other drugs, medicaments and biological substances

== ENCOUNTER 2016-12-21 02:31 | Emergency (ER) | payer OTHER ==
[~2016-12-21] VITALS: Ht 152.4 cm; Wt 54.5 kg
[2016-12-21] MEDS ORDERED: fentaNYL 100 MCG/2 ML INJECTION (J3010) IV ONE (03:15)
[2016-12-21] MEDS ORDERED: NS 500 ML IV ONE (03:30)
[2016-12-21] MEDS: fentaNYL 100 MCG/2 ML INJECTION (J3010) IV PRN ×3 (04:39→05:53)
[2016-12-21] MEDS ORDERED: SODIUM CHLORIDE 0.9% INJ 10 ML SYR IV ONE (04:45)
[2016-12-21 06:08] VITALS: BP 131/78
[2016-12-21] MEDS ORDERED: SODIUM CHLORIDE 0.9% INJ 10 ML SYR IV SCH (09:00)
== END 2016-12-21 06:21 | disposition home or self-care (01) ==
LOC: M ED 02:31 → EDBD 02:31 → M ED 06:21
DX: R51 Headache (principal); R10.9 Unspecified abdominal pain; G89.29 Other chronic pain; F11.20 Opioid dependence, uncomplicated; Z93.0 Tracheostomy status; Z79.899 Other long term (current) drug therapy; Z88.6 Allergy status to analgesic agent; Z88.5 Allergy status to narcotic agent; Z88.8 Allergy status to other drugs, medicaments and biological substances; Z88.0 Allergy status to penicillin
CPT/HCPCS: 96374; 96375; 96376; 99283; J3010

== ENCOUNTER → 2017-01-15 | Outpatient (CLI) | payer OTHER ==
[~2017-01-15] MED LIST changes: +D 50CAP PO; +DULC5TAB PO; +FLON1SPR; +GASTROGRAFIN SOLUTION 30ML (Q9963) As Ordered ONE; +IBUP-1114 PO; +ISOVUE-370 76% 100ML VIAL (Q9967) As Ordered ONE; +MECL-86 PO
--- NOTE | 2017-01-15 20:30 | REP ---
CT ABDOMEN AND PELVIS WITHOUT CONTRAST: HISTORY: Biliary stricture. COMPARISON: 10/14/2016 The patient is status post cholecystectomy. There is dilatation of the biliary system. The liver is enlarged. The pancreas, spleen, adrenal glands and kidneys are normal in appearance. A mild amount of ascites is present. There is no mass or adenopathy. The visualized lungs are clear. The urinary bladder and uterus are normal in appearance. There is a marked amount of stool is present in the colon. Degenerative change is present in the spine. IMPRESSION: 1. The patient is status post cholecystectomy. 2. Hepatomegaly. 3. There is dilatation of the biliary system that appears unchanged compared to the previous study. 4. There is a mild amount of ascites. 5. There is a marked amount of stool in the colon. Signed by Rc Parikh MD 01/16/2017 09:18 A
== END ==
LOC: M RAD 15:04
PROVIDERS: ATTEND Physician Assistant Medical
DX: K83.1 Obstruction of bile duct (principal)
CPT/HCPCS: 74176; Q9963

== ENCOUNTER 2017-01-18 00:30 | Emergency (ER) | payer OTHER ==
[~2017-01-18] VITALS: Ht 149.9 cm; Wt 53.6 kg
[~2017-01-18 00:30] MED LIST changes: -D 50CAP PO; -DULC5TAB PO; -FLON1SPR; -GASTROGRAFIN SOLUTION 30ML (Q9963) As Ordered ONE; -IBUP-1114 PO; -ISOVUE-370 76% 100ML VIAL (Q9967) As Ordered ONE; -MECL-86 PO
[2017-01-18 02:03] LABS: BASO % 0.5 % (0.0-1.0); EOS # 0.1 K/mm3 (0.0-0.50); LARGE UNSTAINED CELL # 0.1 K/mm3 (0.0-0.4); LARGE UNSTAINED CELL % 2.7 % (0.0-4.0); LYMPH % 55.9 % (24.0-44.0); MEAN CORPUSCULAR HEMOGLOBIN 29.4 pg (27.0-33.0); MEAN CORPUSCULAR VOLUME 86.6 fl (80.0-96.0); MONO # 0.2 K/mm3 (0.0-0.8); MONO % 4.2 % (0.0-5.0); NEUTROPHILS # 1.3 K/mm3 (1.8-7.7); NEUTROPHILS % 34.6 % (36.0-66.0); PLATELET COUNT, AUTOMATED 156 k/mm3 (150-450); RED CELL DISTRIBUTION WIDTH 13.9 % (11.5-14.5); WHITE BLOOD COUNT 3.6 K/mm3 (4.0-10.0)
[2017-01-18 02:30] LABS: ALBUMIN 3.1 GM/DL (3.2-5.2); ALBUMIN/GLOBULIN RATIO 0.86 (1.00-1.93); ALKALINE PHOSPHATASE 115 U/L (45-117); ALT/SGPT 14 U/L (12-78); AMYLASE 63 U/L (25-115); ANION GAP 4 MEQ/L (8-16); AST/SGOT 15 U/L (15-37); BILIRUBIN,DIRECT 0.1 MG/DL (0.0-0.2); BILIRUBIN,TOTAL 0.3 MG/DL (0.2-1.0); BLOOD UREA NITROGEN 21 MG/DL (7-18); CALCIUM LEVEL 8.5 MG/DL (8.5-10.1); CARBON DIOXIDE LEVEL 31 MEQ/L (21-32); CHLORIDE LEVEL 108 MEQ/L (98-107); GLOMERULAR FILTRATION RATE > 60.0 (>51); GLUCOSE, FASTING 77 MG/DL (70-105); POTASSIUM SERUM 3.9 MEQ/L (3.5-5.1); SODIUM LEVEL 143 MEQ/L (136-145); TOTAL PROTEIN 6.7 GM/DL (6.4-8.2)
[2017-01-18] MEDS ORDERED: MORPHINE 10 MG/ML 1ML VIAL IM ONE (03:00)
[2017-01-18 03:41] VITALS: BP 144/71
[2017-01-18] MEDS ORDERED: SODIUM CHLORIDE 0.9% INJ 10 ML SYR IV SCH (09:00)
== END 2017-01-18 03:57 | disposition home or self-care (01) ==
LOC: EDBD 00:30 → M ED 00:30
DX: G89.29 Other chronic pain (principal); R10.9 Unspecified abdominal pain; D84.1 Defects in the complement system; K21.9 Gastro-esophageal reflux disease without esophagitis; D50.9 Iron deficiency anemia, unspecified; G43.909 Migraine, unspecified, not intractable, without status migrainosus; Z79.891 Long term (current) use of opiate analgesic; Z79.899 Other long term (current) drug therapy; Z88.6 Allergy status to analgesic agent; Z88.5 Allergy status to narcotic agent; Z88.8 Allergy status to other drugs, medicaments and biological substances; Z88.0 Allergy status to penicillin

== ENCOUNTER → 2017-01-19 | Outpatient (REF) | payer OTHER ==
[~2017-01-19] MED LIST changes: +D 50CAP PO; +DULC5TAB PO; +FLON1SPR; +IBUP-1114 PO; +MECL-86 PO
[2017-01-19 16:39] LABS: BASO % 1.1 % (0.0-1.0); EOS # 0.1 K/mm3 (0.0-0.50); EOS % 1.9 % (0.0-3.0); LARGE UNSTAINED CELL # 0.1 K/mm3 (0.0-0.4); LARGE UNSTAINED CELL % 1.9 % (0.0-4.0); LYMPH # 1.8 K/mm3 (1.5-4.5); LYMPH % 50.5 % (24.0-44.0); MEAN CORPUSCULAR HEMOGLOBIN 29.4 pg (27.0-33.0); MEAN CORPUSCULAR HGB CONC 33.9 g/dl (32.0-36.5); MEAN CORPUSCULAR VOLUME 86.7 fl (80.0-96.0); MONO # 0.2 K/mm3 (0.0-0.8); MONO % 4.9 % (0.0-5.0); NEUTROPHILS # 1.4 K/mm3 (1.8-7.7); NEUTROPHILS % 39.7 % (36.0-66.0); PLATELET COUNT, AUTOMATED 148 k/mm3 (150-450); WHITE BLOOD COUNT 3.5 K/mm3 (4.0-10.0)
[2017-01-19 17:00] LABS: ALBUMIN 3.6 GM/DL (3.2-5.2); ALKALINE PHOSPHATASE 120 U/L (45-117); ALT/SGPT 20 U/L (12-78); AMYLASE 52 U/L (25-115); ANION GAP 9 MEQ/L (8-16); AST/SGOT 16 U/L (15-37); BILIRUBIN,TOTAL 0.4 MG/DL (0.2-1.0); BLOOD UREA NITROGEN 23 MG/DL (7-18); CALCIUM LEVEL 8.5 MG/DL (8.5-10.1); CARBON DIOXIDE LEVEL 28 MEQ/L (21-32); CHLORIDE LEVEL 107 MEQ/L (98-107); CREATININE FOR GFR 0.89 MG/DL (0.55-1.02); GLOMERULAR FILTRATION RATE > 60.0 (>51); GLUCOSE, FASTING 80 MG/DL (70-105); POTASSIUM SERUM 4.3 MEQ/L (3.5-5.1); SODIUM LEVEL 144 MEQ/L (136-145); TOTAL PROTEIN 7.2 GM/DL (6.4-8.2)
[2017-01-20 11:47] LABS: HEPATITIS B SURFACE ANTIBODY NEGATIVE (POSITIVE)
[2017-01-23 00:06] LABS: HEPATITIS C QUANTITATION HCV Not Detected IU/mL (.); IgG SERUM (part of Subclasses) 1211 mg/dL (700-1600); IgG Subclass 1 758 mg/dL (248-810); IgG Subclass 2 418 mg/dL (130-555); IgG Subclass 3 213 mg/dL (15-102); IgG Subclass 4 39 mg/dL (2-96)
== END ==
LOC: M LAB REF 15:10
PROVIDERS: ATTEND Physician Assistant Medical
DX: I50.9 Heart failure, unspecified (principal)

== ENCOUNTER 2017-02-14 10:45 | Observation (INO) | payer OTHER ==
[~2017-02-14] VITALS: Ht 149.9 cm; Wt 56.4 kg
[~2017-02-14 10:45] MED LIST changes: -D 50CAP PO; -DULC5TAB PO; -FLON1SPR; -IBUP-1114 PO; -MECL-86 PO
[2017-02-14] MEDS ORDERED: fentaNYL 100 MCG/2 ML INJECTION (J3010) IV ONE ×3 (11:15→15:30)
[2017-02-14] MEDS ORDERED: PROMETHAZINE INJ 25 MG/ML VIAL (J2550) IV ONE ×2 (11:15→13:00)
[2017-02-14] MEDS: NS 1,000 ML IV SCH ×2 (11:38→20:06)
[2017-02-14 11:59] LABS: BASO % 0.6 % (0.0-1.0); EOS # 0.1 K/mm3 (0.0-0.50); EOS % 2.3 % (0.0-3.0); LARGE UNSTAINED CELL # 0.1 K/mm3 (0.0-0.4); LARGE UNSTAINED CELL % 2.1 % (0.0-4.0); LYMPH # 1.8 K/mm3 (1.5-4.5); LYMPH % 52.1 % (24.0-44.0); MEAN CORPUSCULAR HEMOGLOBIN 30.2 pg (27.0-33.0); MEAN CORPUSCULAR HGB CONC 34.6 g/dl (32.0-36.5); MEAN CORPUSCULAR VOLUME 87.2 fl (80.0-96.0); MONO # 0.2 K/mm3 (0.0-0.8); MONO % 5.3 % (0.0-5.0); NEUTROPHILS # 1.3 K/mm3 (1.8-7.7); NEUTROPHILS % 37.5 % (36.0-66.0); PLATELET COUNT, AUTOMATED 152 k/mm3 (150-450); WHITE BLOOD COUNT 3.5 K/mm3 (4.0-10.0)
[2017-02-14 12:25] LABS: ALBUMIN 3.1 GM/DL (3.2-5.2); ALBUMIN/GLOBULIN RATIO 0.84 (1.00-1.93); ALKALINE PHOSPHATASE 104 U/L (45-117); ALT/SGPT 18 U/L (12-78); ANION GAP 7 MEQ/L (8-16); AST/SGOT 14 U/L (15-37); BILIRUBIN,DIRECT 0.1 MG/DL (0.0-0.2); BILIRUBIN,TOTAL 0.4 MG/DL (0.2-1.0); BLOOD UREA NITROGEN 24 MG/DL (7-18); CALCIUM LEVEL 7.8 MG/DL (8.5-10.1); CARBON DIOXIDE LEVEL 28 MEQ/L (21-32); CHLORIDE LEVEL 112 MEQ/L (98-107); CREATININE FOR GFR 0.59 MG/DL (0.55-1.02); GLOMERULAR FILTRATION RATE > 60.0 (>51); GLUCOSE, FASTING 82 MG/DL (70-105); POTASSIUM SERUM 3.5 MEQ/L (3.5-5.1); SODIUM LEVEL 147 MEQ/L (136-145); TOTAL PROTEIN 6.8 GM/DL (6.4-8.2)
[2017-02-14] MEDS ORDERED: NS 1,000 ML IV ONE (13:00)
[2017-02-14] MEDS ORDERED: ACETAMINOPHEN TAB 650MG DOSE (2X325MG) PO PRN (16:45)
[2017-02-14] MEDS ORDERED: ONDANSETRON 4MG/2ML VIAL (J2405) IV PRN (16:45)
[2017-02-14] MEDS ORDERED: HYDROmorphone HCL 1 MG/ML SYRINGE (J1170) IV PRN (16:45)
[2017-02-14] MEDS ORDERED: MECL-86 PO (17:13)
[2017-02-14] MEDS ORDERED: FLON1SPR (17:13)
[2017-02-14] MEDS ORDERED: DULC5TAB PO (17:13)
[2017-02-14] MEDS ORDERED: GASTROGRAFIN SOLUTION 30ML (Q9963) PO ONE ×2 (17:30→18:00)
[2017-02-14] MEDS ORDERED: CALCIUM CARBONATE 500 MG CHEW U/D PO PRN (17:45)
[2017-02-14] MEDS ORDERED: [UNRECOGNIZED DRUG - OTHER] IV PRN (17:45)
[2017-02-14] MEDS ORDERED: MAGNESIUM CITRATE 300 ML BTL PO PRN (17:45)
[2017-02-14] MEDS ORDERED: PENCICLOVIR 1% CREAM 5GM TOP PRN (17:45)
[2017-02-14] MEDS ORDERED: AZELASTINE 137MCG NASAL SPY 30 ML (ASTELIN) PRN (17:45)
[2017-02-14] MEDS ORDERED: BISACODYL 5 MG TAB PO PRN (17:45)
[2017-02-14] MEDS ORDERED: MECLIZINE 25 MG TABLET PO PRN (17:45)
[2017-02-14] MEDS: HYDROmorphone HCL 1 MG/ML SYRINGE (J1170) IV PRN ×2 (17:47→20:59)
--- NOTE | 2017-02-14 19:30 | REPUSA ---
CT of the abdomen and pelvis without contrast Clinical statement: Pain. Evaluate stent. Technique: Multiple axial CT images were obtained from the base of the lungs to the floor of the pelv is utilizing 5 mm axial slices after administration of oral contrast only. Coronal and sagittal recon structions were also obtained. Comparison: 10/14/2016. Findings: Chest: The visualized lung bases are clear. Abdomen: The kidneys are normal in size bilaterally. There is no evidence of hydronephrosis or nephro lithiasis. The liver and spleen are slightly enlarged. There is no evidence of biliary ductal dilatat ion. A common bile duct is not visualized at this time. There is a small amount of upper abdominal as cites bilaterally. The pancreas and adrenal glands are unremarkable. The aorta demonstrates normal ca liber and contour. There is no abdominal lymphadenopathy. Pelvis: Diffuse bowel wall thickening throughout the colon is noted. Moderate amount of surrounding a scites is seen. There is no focal evidence of bowel obstruction. The urinary bladder is within normal limits. There is no pelvic lymphadenopathy. The other pelvic structures appear unremarkable. Bones: There are no suspicious osseous abnormalities seen. Impression: 1. Diffuse bowel wall thickening throughout the colon, without evidence of focal obstruction. The fin dings are nonspecific, but could represent infectious or inflammatory colitis. 2. Hepatosplenomegaly. There is no evidence of a common bile duct stent on these images. 3. Moderate amount of abdominal and pelvic ascites. Now loculated fluid collection is identified lang aury. 4. The other CT findings are stable. 4. No evidence of hydronephrosis or nephrolithiasis.
[2017-02-14 19:40] VITALS: BP 167/85
--- NOTE | 2017-02-14 19:56 | HPE ---
DATE OF ADMISSION: 02/14/2017 PRIMARY CARE PROVIDER: MARYT Jordan CHIEF COMPLAINT: Abdominal pain. HISTORY OF PRESENTING ILLNESS: This is a 56-year-old female with history significant for hereditary angioedema, C1 esterase deficiency, diastolic dysfunction, left ventricular ejection fraction of 65-70%, hypertension, chronic hepatitis B and C, left breast cancer, neuropathy, osteoporosis, kyphosis, scoliosis, degenerative disc disease, common bile duct dilatation, with chronic anemia, back pain, and right adrenal mass, depression, tracheostomy, was in her usual state of health until this morning when she complained of diffuse abdominal cramping in the bilateral lower quadrants. She usually sees pain management and takes oxycodone 30 mg up to five times daily, had taken a dose this morning with no relief. Pain is worsened when she ambulates. She has had one episode of loose bowel movement this morning, but no constipation. She has been quite nauseated throughout the day today without fever or chills and has not had any breakfast. Patient denies any blood or mucus in her loose bowel movement. She has had a 20 pound weight loss in the past 1 month and has dropped down to 114 pounds to a size 9 with significant decrease in appetite for the past few months. The patient was sent to [place] [facility], Dr. Champion at [facility] for further evaluation of her chronic abdominal pain with recommendations for repeat ERCP and CT of the abdomen. She is waiting to hear from them in terms of when this could be done. Other recommendations included referral to infectious disease or gastroenterology for management of her chronic hepatitis C. The patient has not had any evaluation or treatment for this in the past. She does have chronic common bile duct stent with recent imaging study performed in November 2016, showing no displacement. Hospitalist service was called for admission for chronic abdominal pain which has worsened today. The patient otherwise denies any dysuria, urgency, frequency, fever, chills, or flank pain. PAST MEDICAL HISTORY: 1. Hereditary angioedema. 2. C1 esterase deficiency. 3. Diastolic dysfunction, left ventricular ejection fraction of 67-70%. 4. Hypertension. 5. Hepatitic B and C. 6. Left breast cancer. 7. Neuropathy. 8. Osteoporosis. 9. Kyphosis. 10. Scoliosis. 11. Degenerative disc disease. 12. Common bile duct dilatation with chronic common bile duct (CBD) stent. 13. Chronic anemia. 14. Chronic back pain. 15. Right adrenal mass. 16. Depression. 17. Tracheostomy. PAST SURGICAL HISTORY: 1. Cholecystectomy. 2. Teeth removal. 3. ERCP with CBD stent removal and replacement. 4. ERCP with multiple insertions and explantations of [id number]-o-[id number]. 5. AO screw for right hip fracture. 6. Tracheostomy. 7. Bronchoscopy. 8. Multiple triple lumen catheter insertions. 9. EGD. 10. Modified radical mastectomy with chemotherapy. 11. Appendectomy. 12. Tubal ligation. HOME MEDICATIONS: - Extra Strength Tylenol 500 mg every 6 hours for pain - atenolol 50 mg twice a day - azelastine spray one spray in nares as needed - Dulcolax 10 mg per rectum as needed for constipation - C1 esterase inhibitor 2000 units IV as directed as needed for flareups - calcium 500 mg twice a day - Tums 1 gram twice a day - cetirizine 10 mg daily - Klonopin 2 mg twice a day - Colace 100 mg three times a day - Cymbalta 60 mg daily - vitamin D 50,000 units weekly - ferrous sulfate 325 daily - magnesium citrate 300 mL daily as needed for constipation - MagOx 800 mg daily - multivitamin one tablet daily - oxycodone 30 mg every 4 hours as needed for pain - OxyContin 40 mg every 12 hours - Protonix 20 mg daily - penciclovir topically as needed for cold sore - MiraLAX 17 grams daily - Klor-Con 20 mEq twice a day - Mirapex 0.25 mg nightly - promethazine 25 mg twice a day - Senokot one tablet as needed - tizanidine 4 mg three times a day for muscle spasms as needed - triamcinolone acetonide topically twice a day as needed for rash - vitamin D 5000 units daily - vitamin B6 500 mg daily ALLERGIES: ASPIRIN - angioedema; CODEINE - exacerbates angioedema; TORADOL - hives; the patient has taken ibuprofen in the past without issues; PENICILLIN - hives and rash, worsens angioedema; PENTAZOCINE - severe hallucinations; PROCHLORPERAZINE - severe anxiety; GABAPENTIN - confusion; PREGABALIN - confusion; MORPHINE - headaches and confusion. SOCIAL HISTORY: The patient is a former smoker, a pack a day for 10 years, quit 15 years ago. Denies alcohol or drug use. 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 FAMILY HISTORY: Father due to cancer. Mother with hereditary angioedema. REVIEW OF SYSTEMS: 12-point system obtained, all of which are negative aside from positive findings on history of present illness. PHYSICAL EXAMINATION: Temperature 98.4, pulse 58, respiratory rate 18, blood pressure 132/78, 98-100% on room air oxygen saturation. Generally, patient appears older than her stated age. No jaundice or icterus. No use of respiratory accessory muscles. No cyanosis. Speaks in full sentences. Pupils are round, reactive to light and accommodation. Extraocular muscles are intact. No jugular venous distention or thyromegaly. No cervical lymphadenopathy. LUNGS: Clear to auscultation. No wheezing, rales, or rhonchi. Kyphotic with some scoliosis. Patient has an Tjnpeu-o-Ogbj on the right anterior chest below the clavicle. ABDOMEN: Soft, tender bilateral lower quadrants. No rebound or guarding. Positive bowel sounds times four quadrants. EXTREMITIES: No cyanosis, clubbing, or pitting edema. LABORATORY DATA: White count 3.5, hemoglobin 9.4, hematocrit 27.3, platelet count 152. Sodium 147, potassium 3.5, chloride 112, bicarbonate 28, BUN 24, creatinine 0.59, glucose of 82, calcium 7.8, total bilirubin 0.4, direct bilirubin 0.1, AST 14, ALT 18, alkaline phosphatase 104, total protein 6.8, albumin of 3.1, lipase of 139. ASSESSMENT AND PLAN: This is a 56-year-old female with history of hereditary angioedema, C1 esterase deficiency, diastolic dysfunction with ejection fraction (EF) of 65-70%, hypertension, chronic hepatitis B and C, left breast cancer status post modified radical mastectomy with chemotherapy, appendectomy, tubal ligation, tracheostomy, bronchoscopy, multiple insertions and explantations of Lybpdk-i-[id number], AO screw for right hip fracture, ERCP, osteoporosis, neuropathy, kyphosis, scoliosis, degenerative disc disease, common bile duct dilatation with common bile duct stent, chronic anemia, chronic back pain, right adrenal mass, depression, tracheostomy, teeth removal, ERCP with common bile duct (CBD) stent and replacement, presents to the emergency room with acute onset of bilateral lower quadrant abdominal pain, admitted for further evaluation and management. Patient will be admitted for observation, assigned to Dr. Ling Crow for the following issues: 1. Abdominal pain. Obtain CT abdomen and pelvis with oral contrast. Continue with her home dose of C1 esterase inhibitor Berinert as directed for flareups. Patient has not had much relief with the Fentanyl given in the emergency room times three doses, therefore she will be admitted to a monitored floor for intravenous Dilaudid as needed, pain management consult in the morning. Due to the change to intravenous medications, her home dose of OxyContin and oxycodone will be held. She will be monitored with continuous pulse oximetry and cardiac monitoring for any blood pressure issues. 2. C1 esterase deficiency and hereditary angioedema. Rule out acute exacerbation and continue on Berinert. Pain management for now. 3. Hypertension. Appears to be controlled. Will resume home dose of atenolol and amlodipine with holding parameters for systolic pressure less than 140. Patient's hydrochlorothiazide will be held as she is having abdominal complaints. Will give intravenous fluids while the patient is nauseated. 4. Chronic hepatitis B and C. Patient will need either infectious disease specialist or author agent to monitor patient's viral load and eligibility for treatment. 5. History of left breast cancer status post modified radical mastectomy. No acute issues. 6. Chronic osteoporosis, kyphosis, scoliosis. Resume home dose of vitamin D once her oral intake and abdominal pain has resolved. 7. Common bile duct dilatation status post common bile duct stent. In order to fully evaluate, will need to repeat CT abdomen and pelvis, therefore will try to do today with oral contrast. 8. Chronic anemia. No acute indication for red blood cell (RBC) transfusion. 9. Chronic right adrenal mass. No acute issues. 10. Depression. 11. Chronic constipation. May continue home dose of MiraLAX, Colace, and Senokot. 12. Deep venous thrombosis (DVT) prophylaxis with heparin subcutaneously. Will try to obtain records from her author agent in [place] at [facility], Dr. Champion. Patient will be signed out to Dr. Ling Crow at 7 p.m. on 02/14/2017.
[2017-02-14 20:00] VITALS: O2SAT 98
[2017-02-14] MEDS: MIRALAX *UNIT DOSE* 17GM PACKET PO SCH (20:05)
[2017-02-14] MEDS: DOCUSATE SODIUM 100 MG CAP PO SCH (20:05)
[2017-02-14] MEDS: POTASSIUM CHLORIDE 10 MEQ SR TABLET PO SCH (20:06)
[2017-02-14] MEDS: clonazePAM 1 MG TAB PO SCH (20:06)
[2017-02-14] MEDS: SENNA 8.6 MG TAB (SENOKOT) PO SCH (20:06)
[2017-02-14] MEDS: PRAMIPEXOLE 0.25 MG TAB PO SCH (20:52)
[2017-02-14] MEDS: OYSTER SHELL CALCIUM 500 MG TAB PO SCH (20:52)
[2017-02-14] MEDS: ATENOLOL 25 MG TAB PO SCH (20:52)
[2017-02-14] MEDS: HEPARIN SOD (PORCINE) 5000 UNITS/ML VIAL SC SCH (20:59)
[2017-02-14 21:00] VITALS: O2SAT 99
[2017-02-14 22:00] VITALS: O2SAT 88
[2017-02-14 23:00] VITALS: O2SAT 100
[2017-02-15] VITALS (17 sets, daily range): BP systolic 131–164; BP diastolic 58–92; O2SAT 84–100
[2017-02-15] MEDS: HYDROmorphone HCL 1 MG/ML SYRINGE (J1170) IV PRN ×4 (00:01→09:22)
[2017-02-15] MEDS: HEPARIN SOD (PORCINE) 5000 UNITS/ML VIAL SC SCH ×3 (05:06→21:32)
[2017-02-15] MEDS: NS 1,000 ML IV SCH (05:07)
[2017-02-15 05:21] LABS: BASO % 0.7 % (0.0-1.0); EOS # 0.1 K/mm3 (0.0-0.50); EOS % 2.4 % (0.0-3.0); LARGE UNSTAINED CELL # 0.1 K/mm3 (0.0-0.4); LARGE UNSTAINED CELL % 2.5 % (0.0-4.0); LYMPH # 1.8 K/mm3 (1.5-4.5); LYMPH % 54.2 % (24.0-44.0); MEAN CORPUSCULAR HGB CONC 34.1 g/dl (32.0-36.5); MEAN CORPUSCULAR VOLUME 87.8 fl (80.0-96.0); MONO # 0.1 K/mm3 (0.0-0.8); MONO % 4.3 % (0.0-5.0); NEUTROPHILS # 1.2 K/mm3 (1.8-7.7); NEUTROPHILS % 35.9 % (36.0-66.0); PLATELET COUNT, AUTOMATED 138 k/mm3 (150-450); WHITE BLOOD COUNT 3.2 K/mm3 (4.0-10.0)
[2017-02-15 05:46] LABS: ANION GAP 3 MEQ/L (8-16); BLOOD UREA NITROGEN 19 MG/DL (7-18); CALCIUM LEVEL 8.1 MG/DL (8.5-10.1); CARBON DIOXIDE LEVEL 31 MEQ/L (21-32); CHLORIDE LEVEL 110 MEQ/L (98-107); CREATININE FOR GFR 0.68 MG/DL (0.55-1.02); GLOMERULAR FILTRATION RATE > 60.0 (>51); GLUCOSE, FASTING 85 MG/DL (70-105); POTASSIUM SERUM 3.8 MEQ/L (3.5-5.1); SODIUM LEVEL 144 MEQ/L (136-145)
[2017-02-15 07:22] LABS: FERRITIN 51 NG/ML (8-252); TOTAL IRON BINDING CAPACITY 200 UG/DL (250-450)
[2017-02-15 07:27] LABS: RETIC HEMOGLOBIN CONTENT CHr 30.8 PG (24-36); RETICULOCYTE ABSOLUTE ADVIA212 68 x10(9)/L (17-77)
[2017-02-15 08:05] LABS: ERYTHROCYTE SEDIMENTATION RATE 43 mm/hr (0-30)
[2017-02-15] MEDS: DOCUSATE SODIUM 100 MG CAP PO SCH ×3 (09:23→20:27)
[2017-02-15] MEDS: OYSTER SHELL CALCIUM 500 MG TAB PO SCH ×2 (09:23→20:27)
[2017-02-15] MEDS: CETIRIZINE (ZyrTEC) 10 MG TAB PO SCH (09:23)
[2017-02-15] MEDS: MULTIVITAMINS/MINERALS THERAP 1 TAB PO SCH (09:23)
[2017-02-15] MEDS: PANTOPRAZOLE 20 MG TAB PO SCH (09:23)
[2017-02-15] MEDS: SENNA 8.6 MG TAB (SENOKOT) PO SCH ×2 (09:23→19:57)
[2017-02-15] MEDS: DULoxetine 30 MG CAP (CYMBALTA) PO SCH (09:23)
[2017-02-15] MEDS: POTASSIUM CHLORIDE 10 MEQ SR TABLET PO SCH ×2 (09:24→20:27)
[2017-02-15] MEDS: clonazePAM 1 MG TAB PO SCH ×3 (09:24→20:27)
[2017-02-15] MEDS: VITAMIN D 1,000 INTERNATIONAL UNITS TABLET PO SCH (09:24)
[2017-02-15] MEDS: MAGNESIUM OXIDE 400 MG TAB (MAG-OX) PO SCH (09:24)
[2017-02-15] MEDS: ATENOLOL 25 MG TAB PO SCH ×2 (09:25→20:52)
[2017-02-15 10:05] LABS: INR 1.1
--- NOTE | 2017-02-15 13:37 | IPN ---
DATE: 02/15/2017 SUBJECTIVE: The patient tells me she is feeling better today. She denies chest pain, fevers, and chills. She denies nausea or vomiting. She tells me she is tolerating her diet. She is having regular bowel movements and passing gas. Her abdominal pain is improving. OBJECTIVE: VITAL SIGNS: Temperature 98.5, pulse 60, respiratory rate 20, blood pressure 147/58, oxygen saturation 97% on room air. GENERAL: She is a frail, obese female, lying in bed. She does not appear to be in any acute distress. HEENT: She has moist mucous membranes. She is wearing glasses. She does have some lip prominence. There is some mild exophthalmus. She does have an old trach in place. No elevated of CVP. CARDIOVASCULAR EXAM: S1 and S2 mildly bradycardic. No additional heart sounds appreciated. RESPIRATORY EXAM: Fairly clear. ABDOMINAL EXAM: Grossly obese. Somewhat mildly distended. Diffusely tender to palpation, but more so than bilateral lower quadrants. Not in the right upper quadrant. EXTREMITIES: No clubbing, cyanosis, or edema. LABORATORY STUDIES: WBC 3.2, hemoglobin 8.7, hematocrit 25.5, platelet count is 138. Chemistry panel: Sodium 144, potassium 3.8, chloride 110, bicarb 31, BUN 19, creatinine 0.6, lipase within normal limits. Urinalysis is unremarkable. No microbiology. IMAGING: The patient did have a CT scan of the abdomen and pelvis which revealed diffuse bowel wall thickening throughout the colon without evidence of focal obstruction, nonspecific of infectious or inflammatory colitis. Hepatosplenomegaly. No evidence of common duct stent on these images. Moderate amount of abdominal pelvic ascites. No loculated fluid is identified however. ASSESSMENT/PLAN: 56-year-old female with hereditary angioedema presenting now with abdominal pain. PROBLEMS: 1. Abdominal pain. The patient has a history of hepatitis C and retained gallstones with common bile duct interventions to get ERCP. She has chronic pain in the right upper quadrant related to this and she is currently undergoing an outpatient evaluation to set up and outpatient ERCP through a window repairer in [place]. That was arranged for her by Dr. Parra. At this time, her LFTs and alkaline phosphatase are fairly unremarkable and her pain is not in the right upper quadrant which makes me less suspicious as this is for the etiology of her current presentation. She actually able to articulate to me that she has had this pain in the past and is usually associated more as a complication of her angioedema in her colon. I suspect this may be the case. She does have ascites in her abdomen; however, she has very mild leukopenia which does not appear to be fairly new and appears to be somewhat dilutional. She is afebrile. She is not tachycardic. She does not appear to be grossly septic. My suspicion for SPP is much lower. At this time, I will not conduct a paracentesis and I will not start her on any antibiotics. She was not started on any at the time of her admission. For the time being will monitor as her pain does appear to be improving. Should she fail to improve or if she spikes a temperature, will reconsider and consider a paracentesis to check cell counts. I will check ESR and CRP. The patient has had numerous hospitalizations in the past similar to this. She told me she is willing to try by mouth pain medication, which I will provide for her and we will see if we are able to transition her off of IV narcotics. She says normally these episodes are resolved within 24-48 hours. Will continue with cetirizine, Zofran. A pain management consult has been placed by Dr. Tran. 2. C1 esterase deficiency and hereditary angioedema. As outlined above. It seems as though this is more related to angioedema of her large bowel. 3. Hypertension. Controlled. She is on atenolol and amlodipine. Hydrochlorothiazide is currently on hold. If her heart rate remains bradycardic could consider titrating down her atenolol. 4. Chronic hepatitis B and hepatitis C. The patient is seeking out a referral to Dr. Ford in the outpatient setting for potential treatment for her hepatitis C in the near future. In preparation for this, I will check a hepatitis C viral load and genotype to better equip Dr. Ford to potentially start the patient on treatment when she sees the patient hopefully within the coming weeks. 5. History of left breast cancer status post left mastectomy. No active issue. 6. Kyphoscoliosis and osteoporosis. The patient is on vitamin D. 7. Chronic anemia. Will check iron studies and occult stool for blood. 8. Chronic adrenal mass. Not a new finding. 9. Depression. Continue with SSRI. 10. Chronic constipation. Continue her home bowel regimen. 11. Deep vein thrombosis (DVT) prophylaxis. The patient is on heparin. DISPOSITION: Pending her ability to come off of IV narcotics. I suspect she may be able to return home to where she has services as early as tomorrow.
[2017-02-15] MEDS: oxyCODONE 5MG TAB PO PRN ×2 (15:28→20:14)
[2017-02-15] MEDS: MIRALAX *UNIT DOSE* 17GM PACKET PO SCH (19:56)
[2017-02-15] MEDS: PRAMIPEXOLE 0.25 MG TAB PO SCH (20:27)
[2017-02-15] MEDS: oxyCODONE 20 MG CR TAB PO SCH (21:31)
[2017-02-16] VITALS (10 sets, daily range): BP systolic 125–155; BP diastolic 65–94; O2SAT 91–98
[2017-02-16] MEDS: oxyCODONE 5MG TAB PO PRN ×4 (00:16→15:41)
[2017-02-16] MEDS: HEPARIN SOD (PORCINE) 5000 UNITS/ML VIAL SC SCH (06:11)
[2017-02-16] MEDS ORDERED: SODIUM CHLORIDE 0.9% INJ 10 ML SYR IV PRN (06:15)
[2017-02-16 08:00] LABS: BASO % 0.9 % (0.0-1.0); EOS # 0.1 10^3/uL (0.0-0.50); EOS % 2.1 % (0.0-3.0); IMMATURE GRANULOCYTE % 0.6 % (0-0); LYMPH % 58.2 % (24.0-44.0); MEAN CORPUSCULAR HEMOGLOBIN 29.1 pg (27.0-33.0); MEAN CORPUSCULAR HGB CONC 32.9 g/dl (32.0-36.5); MEAN CORPUSCULAR VOLUME 88.4 fl (80.0-96.0); MONO # 0.2 10^3/uL (0.0-0.8); NEUTROPHILS # 1.1 10^3/uL (1.8-7.7); NEUTROPHILS % 33.2 % (36.0-66.0); PLATELET COUNT, AUTOMATED 124 10^3/uL (150-450); RED CELL DISTRIBUTION WIDTH 13.8 % (11.5-14.5); WHITE BLOOD COUNT 3.4 10^3/uL (4.0-10.0)
[2017-02-16] MEDS: CETIRIZINE (ZyrTEC) 10 MG TAB PO SCH (08:28)
[2017-02-16] MEDS: POTASSIUM CHLORIDE 10 MEQ SR TABLET PO SCH (08:28)
[2017-02-16] MEDS: clonazePAM 1 MG TAB PO SCH ×2 (08:28→15:41)
[2017-02-16 08:29] LABS: ANION GAP 6 MEQ/L (8-16); BLOOD UREA NITROGEN 17 MG/DL (7-18); CALCIUM LEVEL 8.3 MG/DL (8.5-10.1); CARBON DIOXIDE LEVEL 28 MEQ/L (21-32); CHLORIDE LEVEL 106 MEQ/L (98-107); CREATININE FOR GFR 0.62 MG/DL (0.55-1.02); GLOMERULAR FILTRATION RATE > 60.0 (>51); GLUCOSE, FASTING 82 MG/DL (70-105); SODIUM LEVEL 140 MEQ/L (136-145)
[2017-02-16] MEDS: PANTOPRAZOLE 20 MG TAB PO SCH (08:30)
[2017-02-16] MEDS: MAGNESIUM OXIDE 400 MG TAB (MAG-OX) PO SCH (08:30)
[2017-02-16] MEDS: OYSTER SHELL CALCIUM 500 MG TAB PO SCH (08:30)
[2017-02-16] MEDS: DOCUSATE SODIUM 100 MG CAP PO SCH (08:30)
[2017-02-16] MEDS: SENNA 8.6 MG TAB (SENOKOT) PO SCH (08:30)
[2017-02-16] MEDS: MULTIVITAMINS/MINERALS THERAP 1 TAB PO SCH (08:30)
[2017-02-16] MEDS: DULoxetine 30 MG CAP (CYMBALTA) PO SCH (08:30)
[2017-02-16] MEDS: ATENOLOL 25 MG TAB PO SCH (08:31)
[2017-02-16] MEDS: VITAMIN D 1,000 INTERNATIONAL UNITS TABLET PO SCH (08:31)
[2017-02-16] MEDS ORDERED: INFLUENZA QUADRIVALENT PF VACCINE 0.5ML SYRINGE (90686) IM ONE (09:00)
[2017-02-16] MEDS ORDERED: SODIUM CHLORIDE 0.9% INJ 10 ML SYR IV SCH (09:00)
[2017-02-16] MEDS: oxyCODONE 20 MG CR TAB PO SCH (10:05)
[2017-02-16] MEDS ORDERED: ALTEPLASE 2 MG/2 ML VIAL (J2997 PER 1MG) As Ordered ONE (13:35)
--- NOTE | 2017-02-16 15:59 | DSES ---
DATE OF ADMISSION: 02/14/2017 DATE OF DISCHARGE: 02/16/2017 PRIMARY CARE PROVIDER: Jose CONSULTATIONS: None. PROCEDURES: None. COMPLICATIONS: None. ADMISSION/DISCHARGE DIAGNOSES: 1. Abdominal pain, which has resolved. 2. History of C1 esterase deficiency with hereditary angioedema. 3. Difficulty accessing port, which we were able to do so with assistance from radiology. 4. Hypertension. 5. Chronic hepatitis B and C. 6. History of left breast cancer, status post left mastectomy. 7. Kyphoscoliosis with osteoporosis. 8. Chronic anemia. 9. Chronic adrenal mass. 10. Depression. 11. Chronic constipation. BRIEF HOSPITAL COURSE: Ms. Herrera presented to the emergency department with increasing abdominal pain. Is known to have issues with gallstones. Common bile duct interventions were suggested, and she is to follow up with an endoscopic retrograde cholangiopancreatography (ERCP) in [place], which was arranged by Dr. Parra. The case had been discussed with gastrointestinal (GI) here. Did not feel it needed an emergent ERCP based on her findings. There was a suggestion of some mild ascites on her CT scan but no findings suggestive of spontaneous bacterial peritonitis (SBP); therefore, no antibiotics were started. She remained afebrile. Her white count was normal, and she was able to transition off of intravenous (IV) narcotics and felt that the abdominal episode had dissipated. Whether this was related to her gallbladder issues versus hereditary angioedema the patient was unclear, but, anyway, it was felt that she was back to her baseline, and she was tolerating her meals and felt to be appropriate for home discharge. Regarding further intake, physical, labs, diagnostics, please refer to the history and physical. PHYSICAL EXAMINATION: Today, temperature is 96.3, pulse 60, respiratory rate 18, blood pressure (BP) 155/86, SPO2 is 90% on room air. GENERAL: The patient appears to be in no acute distress. She is alert, oriented, pleasant. HEENT: Unremarkable. LUNGS: Clear. HEART: Regular rate and rhythm. ABDOMEN: Soft. EXTREMITIES: No edema. No calf tenderness. LABORATORY DATA: White count 3.4, hemoglobin 8.3, platelets are 124,000. Sodium 140, potassium 4.0, chloride 106, bicarbonate 29, anion gap 6, BUN 17, creatinine 0.62, glucose is 82. LFTs were unremarkable on admission as well as her lipase. DISCHARGE CONDITION: Good. DISPOSITION: Discharged home. DISCHARGE MEDICATIONS: She will resume her home medication list: - Tylenol 500 mg every 6 hours as needed - atenolol 50 mg twice a day - Astelin nasal spray as directed - Dulcolax 5 mg daily as needed for constipation - Berinert as directed - calcium 500 mg twice a day - Tums 1000 mg twice a day as needed for heartburn - Zyrtec 10 mg daily - clonazepam 2 mg three times a day - Colace 100 mg three times a day - Cymbalta 60 mg daily - vitamin D 50,000 units weekly - ferrous sulfate 325 mg daily - Flonase nasal spray, one spray per nostril daily - magnesium citrate 300 mL daily as needed - magnesium oxide 800 mg daily - meclizine 25 mg three times a day as needed - multivitamin one tablet daily - oxycodone 30 mg every 4 hours as needed - oxycodone 40 mg every 12 hours - pantoprazole 20 mg daily - penciclovir topically daily as needed for cold sores - MiraLax 17 grams by mouth at bedtime - Klor-Con 20 mEq twice a day - Mirapex 0.25 mg at bedtime - promethazine 25 mg by mouth twice a day as needed for nausea - vitamin B6 at 500 mg at bedtime - senna on e tablet daily as needed - tizanidine 4 mg three times a day as needed for muscle spasm - triamcinolone cream applied topically twice a day as needed - vitamin D 5000 units daily DISCHARGE INSTRUCTIONS: Discharge to home. Activity as tolerated. Regular diet. Followup with her primary care provider in a week and keep appointment with GI in [place] as previously scheduled. Seek medical attention if symptoms worsen or progress. She voices understanding. Discharge took 35 minutes.
[2017-02-20 00:07] LABS: HEPATITIS C QUANTITATION HCV Not Detected IU/mL (.)
== END 2017-02-16 16:30 | disposition home health service (06) ==
LOC: EDBD 10:45 → M ED 10:45 → M ED INP 16:32 → M PCU 19:35
PROVIDERS: ADMIT General Practice; ATTEND Internal Medicine
DX: R10.9 Unspecified abdominal pain (principal); D84.1 Defects in the complement system; I10 Essential (primary) hypertension; B18.2 Chronic viral hepatitis C; B18.1 Chronic viral hepatitis B without delta-agent; M40.209 Unspecified kyphosis, site unspecified; Z85.3 Personal history of malignant neoplasm of breast; D64.9 Anemia, unspecified; E27.9 Disorder of adrenal gland, unspecified; F32.9 Major depressive disorder, single episode, unspecified; K59.00 Constipation, unspecified; Z79.899 Other long term (current) drug therapy
CPT/HCPCS: 36415; 74176; 80048; 80076; 81001; 82728; 83550; 83690; 85025; 85046; 85610; 85652; 86140; 87507; 87522; 87902; 90471; 90686; 96361; 96372; 96374; 96375; 96376; 99285; J1170; J2405; J2997; J3010; Q9963

== ENCOUNTER → 2017-03-04 | Outpatient (REF) | payer OTHER ==
[~2017-03-04] MED LIST changes: +D 50CAP PO; +DULC5TAB PO; +FLON1SPR; +IBUP-1114 PO; +MECL-86 PO
[2017-03-04 19:09] LABS: INR 1.06
== END ==
LOC: M LAB REF 17:34
PROVIDERS: ATTEND Nurse Practitioner Adult Health
DX: K83.1 Obstruction of bile duct (principal)

== ENCOUNTER 2017-03-12 08:05 | Emergency (ER) | payer OTHER ==
[~2017-03-12] VITALS: Ht 149.9 cm; Wt 54.5 kg
[~2017-03-12 08:05] MED LIST changes: -D 50CAP PO; -IBUP-1114 PO
[2017-03-12] MEDS ORDERED: SODIUM CHLORIDE 0.9% INJ 10 ML SYR IV PRN (08:45)
[2017-03-12] MEDS ORDERED: DILUENT IV ONE (08:45)
[2017-03-12] MEDS ORDERED: C1 ESTERASE INHIBITOR IV ONE (08:45)
[2017-03-12] MEDS ORDERED: ONDANSETRON 4MG/2ML VIAL (J2405) IV ONE (08:45)
[2017-03-12] MEDS: fentaNYL 100 MCG/2 ML INJECTION (J3010) IV PRN ×4 (09:03→11:14)
[2017-03-12 12:31] VITALS: BP 142/81
[2017-03-13] MEDS ORDERED: D 50CAP PO (11:03)
[2017-03-13] MEDS ORDERED: IBUP-1114 PO (11:05)
== END 2017-03-12 12:45 | disposition home or self-care (01) ==
LOC: M ED 08:05 → EDBD 08:05 → M ED 12:45
DX: G89.4 Chronic pain syndrome (principal); D84.1 Defects in the complement system; Z79.891 Long term (current) use of opiate analgesic; Z88.6 Allergy status to analgesic agent; Z88.5 Allergy status to narcotic agent; Z88.0 Allergy status to penicillin; Z88.8 Allergy status to other drugs, medicaments and biological substances
CPT/HCPCS: 96374; 96375; 99284; J0597; J2405; J3010

== ENCOUNTER 2017-03-13 07:15 | Observation (INO) | payer OTHER ==
[~2017-03-13] VITALS: Ht 149.9 cm; Wt 60.3 kg
[2017-03-13] MEDS ORDERED: NS 1,000 ML IV SCH (07:30)
[2017-03-13 08:50] LABS: BASO % 0.6 % (0.0-1.0); EOS # 0.1 10^3/uL (0.0-0.50); EOS % 2.9 % (0.0-3.0); IMMATURE GRANULOCYTE % 0.3 % (0-0); LYMPH % 56.5 % (24.0-44.0); MEAN CORPUSCULAR HEMOGLOBIN 28.2 pg (27.0-33.0); MEAN CORPUSCULAR HGB CONC 32.1 g/dl (32.0-36.5); MONO # 0.2 10^3/uL (0.0-0.8); MONO % 5.2 % (0.0-5.0); NEUTROPHILS # 1.2 10^3/uL (1.8-7.7); NEUTROPHILS % 34.5 % (36.0-66.0); PLATELET COUNT, AUTOMATED 107 10^3/uL (150-450); RED CELL DISTRIBUTION WIDTH 13.4 % (11.5-14.5); WHITE BLOOD COUNT 3.5 10^3/uL (4.0-10.0)
[2017-03-13] MEDS ORDERED: C1 ESTERASE INHIBITOR IV ONE (09:15)
[2017-03-13] MEDS ORDERED: fentaNYL 100 MCG/2 ML INJECTION (J3010) IV ONE ×2 (09:15→11:30)
[2017-03-13] MEDS ORDERED: DILUENT IV ONE (09:15)
[2017-03-13 09:34] LABS: ALBUMIN 3.1 GM/DL (3.2-5.2); ALKALINE PHOSPHATASE 133 U/L (45-117); ALT/SGPT 17 U/L (12-78); ANION GAP 3 MEQ/L (8-16); AST/SGOT 14 U/L (15-37); BILIRUBIN,DIRECT < 0.1 MG/DL (0.0-0.2); BILIRUBIN,TOTAL 0.2 MG/DL (0.2-1.0); BLOOD UREA NITROGEN 27 MG/DL (7-18); CALCIUM LEVEL 8.4 MG/DL (8.5-10.1); CARBON DIOXIDE LEVEL 33 MEQ/L (21-32); CHLORIDE LEVEL 107 MEQ/L (98-107); CREATININE FOR GFR 0.64 MG/DL (0.55-1.02); GLOMERULAR FILTRATION RATE > 60.0 (>51); GLUCOSE, FASTING 97 MG/DL (70-105); POTASSIUM SERUM 3.9 MEQ/L (3.5-5.1); SODIUM LEVEL 143 MEQ/L (136-145); TOTAL PROTEIN 6.2 GM/DL (6.4-8.2)
[2017-03-13] MEDS ORDERED: D 50CAP PO (11:03)
[2017-03-13] MEDS ORDERED: IBUP-1114 PO (11:05)
[2017-03-13] MEDS ORDERED: HYDROmorphone HCL 1 MG/ML SYRINGE (J1170) IV PRN (11:30)
[2017-03-13] MEDS ORDERED: ONDANSETRON 4MG/2ML VIAL (J2405) IV PRN (11:30)
[2017-03-13] MEDS ORDERED: tiZANidine 4 MG TAB PO PRN (11:30)
[2017-03-13] MEDS: D5W/0.45% SODIUM CHLORIDE 1,000 ML IV SCH (12:10)
[2017-03-13 13:20] VITALS: BP 150/78
[2017-03-13] MEDS: MAGNESIUM OXIDE 400 MG TAB (MAG-OX) PO SCH (13:50)
[2017-03-13] MEDS: HYDROmorphone HCL 2 MG/ML 1ML VIAL (J1170) IV PRN ×4 (13:51→23:14)
[2017-03-13] MEDS: DULoxetine 30 MG CAP (CYMBALTA) PO SCH (13:54)
[2017-03-13] MEDS: CETIRIZINE (ZyrTEC) 10 MG TAB PO SCH (13:54)
[2017-03-13] MEDS: oxyCODONE 40 MG CR TAB PO SCH ×2 (13:55→20:24)
[2017-03-13] MEDS: SENOKOT S TAB PO SCH ×2 (13:55→20:25)
[2017-03-13] MEDS: PANTOPRAZOLE 20 MG TAB PO SCH (14:45)
[2017-03-13] MEDS: ATENOLOL 50 MG TAB PO SCH ×2 (14:45→20:26)
--- NOTE | 2017-03-13 16:58 | HPE ---
DATE OF ADMISSION: 03/13/2017 PRIMARY CARE PROVIDER: Jose CHIEF COMPLAINT: Severe abdominal pain for 2-3 days. PAST MEDICAL HISTORY: 1. Chronic abdominal pain. 2. 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 3. Chronic hepatitis B and C. 4. Chronic opioid dependence, followed at pain clinic. 5. History of breast cancer status post left mastectomy. 6. Hypertension. 7. Kyphoscoliosis with osteoporosis. 8. Chronic anemia. 9. Chronic right adrenal mass. 10. Chronic constipation. 11. Depression. 12. History of biliary stent. 13. History of gallstones. 14. History of abdominal ascites in prior scans. 15. Diastolic dysfunction. 16. Degenerative disc disease. 17. Tracheostomy in place, placed for recurrent angioedema. 18. Chronic common bile duct dilatation and biliary tract disease. Follows at [facility] and Dr. Champion at [facility]. Recommendation is to get repeat endoscopic retrograde cholangiopancreatography (ERCP) and CT abdomen. 20. Peripheral neuropathy. This 56-year-old female with above past medical history initially presented to the emergency room yesterday for 1-day history of crampy abdominal pain, two episodes of diarrhea. She has not been able to get her Berinert for the past 2 weeks due to national shortage. She was taking her oxycodone without relief so came to the emergency room. In the emergency department (ED) patient received four doses of fentanyl 100 mcg each, given over a span of 3 hours. With that her pain improved, and she was discharged home from the emergency room; however, she comes back today after about 14 hours with recurrence of the abdominal pain, which has been intractable and not controlled with home opiates, so the hospitalist service has been consulted for admission for abdominal pain. Patient had several CT scans of the abdomen and pelvis and abdominal MRI this year, so at this time abdominal and pelvic CT scan was not repeated. Her last CT scan from January 2017 showed some generalized diffuse bowel thickening without obstruction, hepatosplenomegaly, some abdominal and pelvic ascites, and loculated fluid collections. There was no biliary ductal dilatation. The common bile duct stent which was placed May 2016 was no longer visible in the CT scan. At present patient denied any fevers or chills. Denies any nausea or vomiting. Denies any diarrhea today. Denied any dysuria. Patient is being admitted to the hospitalist service for intractable abdominal pain. PAST SURGICAL HISTORY: 1. Cholecystectomy in 2016. 2. ERCP and common bile duct (CBD) stent placement and removal. 3. Multiple insertions and explantations of [id number]-[id number]. 4. Tracheostomy. 5. Modified radical mastectomy with chemotherapy. 6. Appendectomy. 7. Right hip fracture fixation. 8. Bronchoscopy. 9. Excision of granulation tissue from the border of tracheostomy stoma. 10. Biliary CBD stent removal and replacement by ERCP in July 2016 along with biliary sphincterotomy and balloon extraction of sludge. SOCIAL HISTORY: Patient is a former smoker, a pack per day for 10 years. Quit about 15 years ago. Denies any alcohol use or drug abuse. ALLERGIES: ASPIRIN, CODEINE, TORADOL, PENICILLIN, PENTAZOCINE, PROCHLORPERAZINE, GABAPENTIN, PREGABALIN, MORPHINE. FAMILY HISTORY: Mother with history of hereditary angioedema. Father due to cancer. HOME MEDICATIONS: - Tylenol 500 mg by mouth every 4 hours as needed for pain - atenolol 50 mg by mouth twice a day - azelastine one spray both nostrils daily - Dulcolax 5 mg by mouth daily as needed for constipation - Berinert 2000 units intravenous (IV) three times a week as needed for flare - calcium 500 mg by mouth twice a day - Tums 1000 mg by mouth twice a day as needed for heartburn - cetirizine 10 mg by mouth daily - cholecalciferol 5000 units by mouth daily - clonazepam 2 mg by mouth three times a day - Colace 100 mg by mouth three times a day - Cymbalta 60 mg by mouth daily - ergocalciferol 50,000 once a week - ferrous sulfate 325 mg by mouth daily - Flonase one spray daily as needed for congestion - ibuprofen 400 mg by mouth every 6 hours as needed for headache - magnesium citrate 300 mL by mouth daily as needed for constipation - magnesium oxide 800 mg by mouth daily - meclizine 25 mg by mouth three times a day as needed for vertigo or dizziness - multivitamin one tablet by mouth daily - oxycodone 30 mg by mouth every 4 hours as needed for pain - OxyContin 40 mg by mouth every 12 hours - pantoprazole 20 mg by mouth daily - Denavir cream daily as needed for cold sores - MiraLax, one such at bedtime - potassium chloride 20 mEq by mouth twice a day - Mirapex 0.25 mg by mouth at bedtime - promethazine 25 mg by mouth twice a day - pyridoxine 500 mg by mouth at bedtime - senna 8.6 mg tablet, one tablet by mouth daily as needed for constipation - tizanidine 4 mg by mouth three times a day as needed for muscle spasm - triamcinolone cream, one such topically twice a day as needed to the affected areas REVIEW OF SYSTEMS: All 10-point review of systems negative except those mentioned in history of present illness (HPI). PHYSICAL EXAMINATION: VITAL SIGNS: Temperature 98.4, pulse 59, respiratory rate 16, blood pressure 165/79, pulse oximetry 99% in room air. GENERAL: Patient awake, alert, oriented times three, lying down in bed in mild distress. HEENT: Normocephalic, atraumatic. Moist mucous membranes. Anicteric eyes. CHEST: Clear to auscultation. CARDIOVASCULAR: S1, S2, regular. No rub, murmur, or gallop. ABDOMEN: Soft. Has generalized tenderness to palpation. Bowel sounds normal. No guarding or rigidity. EXTREMITIES: No edema. LABORATORY DATA: WBC 3.5, hemoglobin 8.5, platelets 107. Sodium 143, potassium 3.9, chloride 107, bicarbonate 33, BUN 27, creatinine 0.64 , calcium 8.4, glucose 97. Liver function tests are normal. Lipase 153. ASSESSMENT: This is a 56-year-old female admitted for intractable abdominal pain. PLAN: 1. Abdominal pain, unknown etiology. Could be part of her angioedema, as she has not been getting her Berinert; however, patient's previous CT scan did show ascites and has history of chronic hepatitis B and C so will have to monitor for possible spontaneous bacterial peritonitis (SBP). Patient also has history of multiple biliary procedures and pancreatobiliary tract pathology with history of complete obstruction of CBD, due to sludge and a stricture, for which she had CBD stent placed, first placed in May 2016, changed in July 2016. It is supposed to be changed every 3-4 months, and the last CT scan in January the CBD stent was not seen; however, there are no abnormalities in the liver function tests or any abnormality suggestive of obstructive cholestasis or biliary tree obstruction. Will continue to monitor. At present, will keep the patient on full liquid diet, intravenous (IV) fluids, pain control with hydromorphone and her oral routine home pain medications. 2. Hereditary angioedema. Will give the patient Berinert when available. At present this medicine is on the back-order list, and our hospital does not carry , and there is none available in our hospital. Patient has been trying to get the medication specially delivered for the past 2 weeks. 3. Chronic hepatitis B and C with ascites. Will get ultrasound of the abdomen. If there is increase in ascites, will do diagnostic paracentesis to evaluate for SBP. 4. 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 At present, the last CT scan done in January 2017 did not show the CBD stent; however, at present there are no signs of CBD obstruction, but will continue to monitor. 5. Chronic diastolic heart failure, stable at this point. There are no signs of fluid overload. 6. History of left breast cancer with history of modified radical mastectomy and chemotherapy. Recent bone scan this year did not show any signs of metastasis. 7. Severe kyphoscoliosis and osteoporosis with degenerative disc disease and chronic back pain. Patient is on high dose of maintenance opiates at home and follows in pain clinic. 8. Right adrenal mass, stable. 9. Pancytopenia, which is chronic. Will continue with iron, ferrous sulfate. 10. Chronic constipation. Will continue with stool softeners and laxatives. 11. Depression. Will continue with home medications. 12. Tracheostomy in place, functioning okay. 13. Deep vein thrombosis (DVT) prophylaxis. Will give Lovenox. 14. Gastrointestinal (GI) prophylaxis. Patient is on pantoprazole. MTDD
[2017-03-13] MEDS: clonazePAM 1 MG TAB PO SCH ×2 (17:04→20:25)
--- NOTE | 2017-03-13 17:27 | REP ---
Abdominal right upper quadrant ultrasound: There is a large volume of intra-abdominal bowel gas limiting the study. The gallbladder surgically absent. There is intrahepatic biliary duct dilatation. The common duct is dilated measuring 10.5 mm in diameter. The hepatic parenchyma is homogeneous. No hepatic masses. Balloon the pancreas is obscured by bowel gas. Balloon The right kidney is low normal size measuring 9.6 cm craniocaudad length. There is no right renal hydronephrosis, calculus, mass or cyst. There is a trace of free fluid at the tip of the hepatic right lobe. Impression: Intrahepatic and extrahepatic biliary duct dilatation. The gallbladder is surgically absent. There is a small volume of ascites at the tip of the hepatic right lobe. The biliary duct distension may be secondary to post cholecystectomy state. Signed by Jake Crisostomo MD 03/13/2017 05:19 P
[2017-03-13] MEDS: POTASSIUM CHLORIDE 10 MEQ SR TABLET PO SCH (20:25)
[2017-03-13] MEDS: ENOXAPARIN 40 MG/0.4 ML SYRINGE (J1650) SC SCH (20:27)
[2017-03-13] MEDS: MIRALAX *UNIT DOSE* 17GM PACKET PO SCH (20:29)
[2017-03-13] MEDS: PRAMIPEXOLE 0.25 MG TAB PO SCH (20:29)
[2017-03-13 22:00] VITALS: BP 153/74
[2017-03-14] MEDS: D5W/0.45% SODIUM CHLORIDE 1,000 ML IV SCH ×2 (01:23→15:06)
[2017-03-14] MEDS: oxyCODONE 5MG TAB PO PRN ×4 (01:23→22:46)
[2017-03-14] MEDS: HYDROmorphone HCL 2 MG/ML 1ML VIAL (J1170) IV PRN ×5 (05:05→20:03)
[2017-03-14] MEDS: SODIUM CHLORIDE 0.9% INJ 10 ML SYR IV PRN (05:29)
[2017-03-14 05:45] LABS: BASO % 0.7 % (0.0-1.0); EOS # 0.1 10^3/uL (0.0-0.50); EOS % 2.8 % (0.0-3.0); IMMATURE GRANULOCYTE % 0.2 % (0-0); LYMPH # 2.1 10^3/uL (1.5-4.5); MEAN CORPUSCULAR HEMOGLOBIN 28.5 pg (27.0-33.0); MEAN CORPUSCULAR HGB CONC 32.3 g/dl (32.0-36.5); MEAN CORPUSCULAR VOLUME 88.2 fl (80.0-96.0); MONO # 0.2 10^3/uL (0.0-0.8); MONO % 5.6 % (0.0-5.0); NEUTROPHILS # 1.7 10^3/uL (1.8-7.7); NEUTROPHILS % 40.7 % (36.0-66.0); PLATELET COUNT, AUTOMATED 119 10^3/uL (150-450); RED CELL DISTRIBUTION WIDTH 13.4 % (11.5-14.5); WHITE BLOOD COUNT 4.3 10^3/uL (4.0-10.0)
[2017-03-14 06:00] VITALS: BP 134/77
[2017-03-14 06:00] LABS: ANION GAP 4 MEQ/L (8-16); BLOOD UREA NITROGEN 20 MG/DL (7-18); CALCIUM LEVEL 8.2 MG/DL (8.5-10.1); CARBON DIOXIDE LEVEL 32 MEQ/L (21-32); CHLORIDE LEVEL 106 MEQ/L (98-107); CREATININE FOR GFR 0.61 MG/DL (0.55-1.02); GLOMERULAR FILTRATION RATE > 60.0 (>51); GLUCOSE, FASTING 89 MG/DL (70-105); POTASSIUM SERUM 4.1 MEQ/L (3.5-5.1); SODIUM LEVEL 142 MEQ/L (136-145)
[2017-03-14] MEDS: POTASSIUM CHLORIDE 10 MEQ SR TABLET PO SCH ×2 (08:22→20:04)
[2017-03-14] MEDS: oxyCODONE 40 MG CR TAB PO SCH ×2 (08:22→20:05)
[2017-03-14] MEDS: clonazePAM 1 MG TAB PO SCH ×3 (08:23→20:06)
[2017-03-14] MEDS: DULoxetine 30 MG CAP (CYMBALTA) PO SCH (08:23)
[2017-03-14] MEDS: CETIRIZINE (ZyrTEC) 10 MG TAB PO SCH (08:23)
[2017-03-14] MEDS: SENOKOT S TAB PO SCH ×2 (08:23→20:06)
[2017-03-14] MEDS: ATENOLOL 50 MG TAB PO SCH ×2 (08:25→20:05)
--- NOTE | 2017-03-14 10:05 | IPNPDOC ---
Subjective Date Seen The patient was seen on 03/14/17. Subjective Chief Complaint/HPI The patient is a 56-year-old female admitted with a reason for visit of Abdominal Pain,Hereditary Angioedema. Events since last encounter pain well controlled with current dosage of hydromorphine, no nausea or vomiting , has not had any bowel movement since yesterday , no fever or chills. Objective Physical Examination General Exam: Positive: Alert, Cooperative, No Acute Distress Eye Exam: Positive: PERRLA, Conjunctiva & lids normal, EOMI, Negative: Sclera icteric ENT Exam: Positive: Atraumatic, Mucous membr. moist/pink, Pharynx Normal Neck Exam: Positive: Supple, Negative: JVD, thyromegaly Chest Exam: Positive: Clear to auscultation, Normal air movement Heart Exam: Positive: Rate Normal, Regular Rhythm, Normal S1, Normal S2, Negative: Murmurs, Rubs Telemetry: Positive: No significant arrhythmia Abdomen Exam: Positive: Normal bowel sounds, Soft, Negative: Tenderness, Hepatospenomegaly Extremity Exam: Positive: Normal pulses, Negative: Clubbing, Cyanosis, Edema Skin Exam: Positive: Nl turgor and temperature, Negative: Rash, Breakdown Assessment /Plan Problems (1) Chronic abdominal pain Status: Acute Problem Text: Etiology is multifactorial possibly related to hereditary angioedema and inability to get Berinert for the past 2 days and chronic biliary duct dilatation may have intermittent biliary colic, Had CBD stent in place from may 2016 and changed in July [address] in jan did not show the stent which is presumed to have been displaced into GIT and out. pain well controlled with dilaudid. with the history of chronic hep B and HepC presumed to have acquired in the 1970s from ffp transfusions there is also possibikity of underlying chronic liver disease (2) Hereditary angioedema Status: Chronic Problem Text: received Berinert on 03/13 (3) Dilation of biliary tract Status: Chronic Problem Text: present since apr 2016 noted after cholecystectomy. had ERCP x 2 here showed CBD stricture with sludge had stent placed in may 2016 and changed in jul 2016 now it has displaced and no longer seen in CT abdomens. Patient has follow up with Dr Champion in [place] (4) Hepatitis B Status: Chronic (5) Hepatitis C Status: Chronic (6) GERD (gastroesophageal reflux disease) Status: Chronic (7) Chronic use of opiate for therapeutic purpose Status: Chronic Problem Text: will continue with home dosage of oxycontin and oxycodone. (8) Chronic anemia Status: Chronic (9) Kyphoscoliosis and scoliosis Status: Chronic (10) Diastolic dysfunction Status: Chronic (11) Tracheostomy status Status: Chronic (12) Peripheral neuropathy Status: Chronic (13) Right adrenal mass Status: Chronic (14) Chronic constipation Status: Chronic Problem Text: continue home regimen of stool softners. (15) Depression Status: Chronic (16) History of breast cancer Status: Chronic Problem Text: status post radical modified mastectomy and chemotherapy in remote past. (17) Psoriasis Status: Chronic Plan/VTE VTE Prophylaxis Ordered?: Yes VS, I&O, 24H, Fishbone Vital Signs/I&O Vital Signs Date Time Temp Pulse Resp B/P (MAP) Pulse Ox O2 Delivery O2 Flow Rate FiO2 03/14/17 08:31 18 Room Air 03/14/17 08:25 66 152/78 03/14/17 06:00 98.6 92 I&O- Last 24 Hours up to 6 AM 03/15/17 05:59 Intake Total 0 ml Output Total 0 ml Balance 0 ml Laboratory Data 24H LABS Laboratory Tests 2 03/14/17 05:28: Immature Granulocyte % (Auto) 0.2H, White Blood Count 4.3, Red Blood Count 3.05L , Hemoglobin 8.7L, Hematocrit 26.9L, Mean Corpuscular Volume 88.2, Mean Corpuscular Hemoglobin 28.5, Mean Corpuscular Hemoglobin Concent 32.3, Red Cell Distribution Width 13.4, Platelet Count 119L, Neutrophils (%) (Auto) 40.7, Lymphocytes (%) (Auto) 50.0H, Monocytes (%) (Auto) 5.6H, Eosinophils (%) (Auto) 2.8, Basophils (%) (Auto) 0.7, Neutrophils # (Auto) 1.7L, Lymphocytes # (Auto) 2.1, Monocytes # (Auto) 0.2, Eosinophils # (Auto) 0.1, Basophils # (Auto) 0.0, Immature Granulocyte # (Auto) 0.0, Nucleated Red Blood Cells % (auto) 0.0, Anion Gap 4L, Glomerular Filtration Rate > 60.0, Blood Urea Nitrogen 20H, Creatinine 0.61, Sodium Level 142, Potassium Level 4.1, Chloride Level 106, Carbon Dioxide Level 32, Calcium Level 8.2L CBC/BMP Laboratory Tests 03/14/17 05:28 Red Blood Count 3.05 L, Mean Corpuscular Volume 88.2, Mean Corpuscular Hemoglobin 28.5, Mean Corpuscular Hemoglobin Concent 32.3, Red Cell Distribution Width 13.4, Neutrophils (%) (Auto) 40.7, Lymphocytes (%) (Auto) 50.0 H, Monocytes (%) (Auto) 5.6 H, Eosinophils (%) (Auto) 2.8, Basophils (%) ( Auto) 0.7, Neutrophils # (Auto) 1.7 L, Lymphocytes # (Auto) 2.1, Monocytes # ( Auto) 0.2, Eosinophils # (Auto) 0.1, Basophils # (Auto) 0.0, Calcium Level 8.2 L JOVAN CRANDALL MD Mar 14, 2017 10:04
[2017-03-14] MEDS: MAGNESIUM OXIDE 400 MG TAB (MAG-OX) PO SCH (12:22)
[2017-03-14] MEDS: PANTOPRAZOLE 20 MG TAB PO SCH (12:22)
[2017-03-14 14:00] VITALS: BP 148/80
[2017-03-14] MEDS: MIRALAX *UNIT DOSE* 17GM PACKET PO SCH (20:01)
[2017-03-14] MEDS: PRAMIPEXOLE 0.25 MG TAB PO SCH (20:06)
[2017-03-14] MEDS: ENOXAPARIN 40 MG/0.4 ML SYRINGE (J1650) SC SCH (20:06)
[2017-03-14 22:00] VITALS: BP 151/77
[2017-03-15] MEDS: HYDROmorphone HCL 2 MG/ML 1ML VIAL (J1170) IV PRN (02:47)
[2017-03-15] MEDS: D5W/0.45% SODIUM CHLORIDE 1,000 ML IV SCH (03:58)
[2017-03-15] MEDS: oxyCODONE 5MG TAB PO PRN ×2 (04:00→09:23)
[2017-03-15 05:57] LABS: BASO % 0.5 % (0.0-1.0); EOS # 0.1 10^3/uL (0.0-0.50); EOS % 2.8 % (0.0-3.0); LYMPH % 46.8 % (24.0-44.0); MEAN CORPUSCULAR HEMOGLOBIN 28.6 pg (27.0-33.0); MEAN CORPUSCULAR HGB CONC 32.8 g/dl (32.0-36.5); MEAN CORPUSCULAR VOLUME 87.2 fl (80.0-96.0); MONO # 0.2 10^3/uL (0.0-0.8); MONO % 5.7 % (0.0-5.0); NEUTROPHILS # 1.9 10^3/uL (1.8-7.7); NEUTROPHILS % 44.2 % (36.0-66.0); PLATELET COUNT, AUTOMATED 115 10^3/uL (150-450); RED CELL DISTRIBUTION WIDTH 13.3 % (11.5-14.5); WHITE BLOOD COUNT 4.2 10^3/uL (4.0-10.0)
[2017-03-15 06:00] VITALS: BP 132/70
[2017-03-15 06:15] LABS: ANION GAP 4 MEQ/L (8-16); BLOOD UREA NITROGEN 12 MG/DL (7-18); CALCIUM LEVEL 8.3 MG/DL (8.5-10.1); CARBON DIOXIDE LEVEL 33 MEQ/L (21-32); CHLORIDE LEVEL 105 MEQ/L (98-107); CREATININE FOR GFR 0.62 MG/DL (0.55-1.02); GLOMERULAR FILTRATION RATE > 60.0 (>51); GLUCOSE, FASTING 107 MG/DL (70-105); POTASSIUM SERUM 3.9 MEQ/L (3.5-5.1); SODIUM LEVEL 142 MEQ/L (136-145)
[2017-03-15] MEDS: clonazePAM 1 MG TAB PO SCH (08:40)
[2017-03-15] MEDS: POTASSIUM CHLORIDE 10 MEQ SR TABLET PO SCH (08:40)
[2017-03-15 08:41] VITALS: BP 132/70
[2017-03-15] MEDS: ATENOLOL 50 MG TAB PO SCH (08:41)
[2017-03-15] MEDS: CETIRIZINE (ZyrTEC) 10 MG TAB PO SCH (08:41)
[2017-03-15] MEDS: SENOKOT S TAB PO SCH (08:41)
[2017-03-15] MEDS: DULoxetine 30 MG CAP (CYMBALTA) PO SCH (08:41)
[2017-03-15] MEDS: oxyCODONE 40 MG CR TAB PO SCH (08:42)
[2017-03-15] MEDS: SODIUM CHLORIDE 0.9% INJ 10 ML SYR IV PRN (09:35)
--- NOTE | 2017-03-15 11:05 | IPNPDOC ---
Subjective Date Seen The patient was seen on 03/15/17. Subjective Chief Complaint/HPI The patient is a 56-year-old female admitted with a reason for visit of Abdominal Pain,Hereditary Angioedema. Events since last encounter patients pain controlled with dilaudid , no her nausea and abdominal cramps have resolved and she is able to take her po pain meds. Also she had 2 doses of Berinert delivered to her house yesterday and she thinks once she goes home and takes her berinert the pain is going to improve further. Also she has as appointment with her pain specialist today at [facility] which does not want o miss. She has been able to tolerate regular diet. no fever or chills, no diarrhea, no chest pain or sob . Objective Physical Examination General Exam: Positive: Alert, Cooperative, No Acute Distress Eye Exam: Positive: PERRLA, Conjunctiva & lids normal, EOMI, Negative: Sclera icteric ENT Exam: Positive: Atraumatic, Mucous membr. moist/pink, Pharynx Normal Neck Exam: Positive: Supple, Negative: JVD, thyromegaly Chest Exam: Positive: Clear to auscultation, Normal air movement Heart Exam: Positive: Rate Normal, Regular Rhythm, Normal S1, Normal S2, Negative: Murmurs, Rubs Telemetry: Positive: No significant arrhythmia Abdomen Exam: Positive: Normal bowel sounds, Soft, Negative: Tenderness, Hepatospenomegaly Extremity Exam: Positive: Normal pulses, Negative: Clubbing, Cyanosis, Edema Skin Exam: Positive: Nl turgor and temperature, Negative: Rash, Breakdown Assessment /Plan Problems (1) Chronic abdominal pain Status: Acute Problem Text: Etiology is multifactorial possibly related to hereditary angioedema and inability to get Berinert for the past 2 weeks and chronic biliary duct dilatation may have intermittent biliary colic, Had CBD stent in place from may 2016 and changed in July [address] in jan did not show the stent which is presumed to have been displaced into GIT and out. pain well controlled with dilaudid. with the history of chronic hep B and HepC presumed to have acquired in the 1970s from ffp transfusions there is also possibikity of underlying chronic liver disease (2) Hereditary angioedema Status: Chronic Problem Text: received Berinert on 03/13 (3) Dilation of biliary tract Status: Chronic Problem Text: present since apr 2016 noted after cholecystectomy. had ERCP x 2 here showed CBD stricture with sludge had stent placed in may 2016 and changed in jul 2016 now it has displaced and no longer seen in CT abdomens. Patient has follow up with Dr Champion in [place] (4) Hepatitis B Status: Chronic (5) Hepatitis C Status: Chronic (6) GERD (gastroesophageal reflux disease) Status: Chronic (7) Chronic use of opiate for therapeutic purpose Status: Chronic Problem Text: will continue with home dosage of oxycontin and oxycodone. (8) Chronic anemia Status: Chronic (9) Kyphoscoliosis and scoliosis Status: Chronic (10) Diastolic dysfunction Status: Chronic (11) Tracheostomy status Status: Chronic (12) Peripheral neuropathy Status: Chronic (13) Right adrenal mass Status: Chronic (14) Chronic constipation Status: Chronic Problem Text: continue home regimen of stool softners. (15) Depression Status: Chronic (16) History of breast cancer Status: Chronic Problem Text: status post radical modified mastectomy and chemotherapy in remote past. (17) Psoriasis Status: Chronic Plan/VTE VTE Prophylaxis Ordered?: Yes Disposition discharge home. VS, I&O, 24H, [facility] Vital Signs/I&O Vital Signs Date Time Temp Pulse Resp B/P (MAP) Pulse Ox O2 Delivery O2 Flow Rate FiO2 03/15/17 09:23 16 Room Air 03/15/17 08:41 61 132/70 03/15/17 06:00 98.7 95 Laboratory Data 24H LABS Laboratory Tests 2 03/15/17 05:44: Immature Granulocyte % (Auto) 0.0, White Blood Count 4.2, Red Blood Count 2.97L , Hemoglobin 8.5L, Hematocrit 25.9L, Mean Corpuscular Volume 87.2, Mean Corpuscular Hemoglobin 28.6, Mean Corpuscular Hemoglobin Concent 32.8, Red Cell Distribution Width 13.3, Platelet Count 115L, Neutrophils (%) (Auto) 44.2, Lymphocytes (%) (Auto) 46.8H, Monocytes (%) (Auto) 5.7H, Eosinophils (%) (Auto) 2.8, Basophils (%) (Auto) 0.5, Neutrophils # (Auto) 1.9, Lymphocytes # (Auto) 2.0, Monocytes # (Auto) 0.2, Eosinophils # (Auto) 0.1, Basophils # (Auto) 0.0, Immature Granulocyte # (Auto) 0.0, Nucleated Red Blood Cells % (auto) 0.0, Anion Gap 4L, Glomerular Filtration Rate > 60.0, Blood Urea Nitrogen 12, Creatinine 0.62, Sodium Level 142, Potassium Level 3.9, Chloride Level 105, Carbon Dioxide Level 33H, Calcium Level 8.3L CBC/BMP Laboratory Tests 03/15/17 05:44 Red Blood Count 2.97 L, Mean Corpuscular Volume 87.2, Mean Corpuscular Hemoglobin 28.6, Mean Corpuscular Hemoglobin Concent 32.8, Red Cell Distribution Width 13.3, Neutrophils (%) (Auto) 44.2, Lymphocytes (%) (Auto) 46.8 H, Monocytes (%) (Auto) 5.7 H, Eosinophils (%) (Auto) 2.8, Basophils (%) ( Auto) 0.5, Neutrophils # (Auto) 1.9, Lymphocytes # (Auto) 2.0, Monocytes # (Auto ) 0.2, Eosinophils # (Auto) 0.1, Basophils # (Auto) 0.0, Calcium Level 8.3 L JOVAN CRANDALL MD Mar 15, 2017 11:05
== END 2017-03-15 10:29 | disposition home or self-care (01) ==
LOC: EDBD 07:15 → M ED 07:15 → M ED INP 11:22 → M MSPAV 13:15
PROVIDERS: ADMIT Internal Medicine Nephrology; ATTEND Internal Medicine Nephrology
DX: R10.9 Unspecified abdominal pain (principal); D84.1 Defects in the complement system; B19.10 Unspecified viral hepatitis B without hepatic coma; B18.2 Chronic viral hepatitis C; F11.20 Opioid dependence, uncomplicated; M41.9 Scoliosis, unspecified; K59.00 Constipation, unspecified; I11.0 Hypertensive heart disease with heart failure; F32.9 Major depressive disorder, single episode, unspecified; I50.32 Chronic diastolic (congestive) heart failure; D36.9 Benign neoplasm, unspecified site; Z93.0 Tracheostomy status; K83.8 Other specified diseases of biliary tract; G62.9 Polyneuropathy, unspecified; Z85.3 Personal history of malignant neoplasm of breast; Z87.891 Personal history of nicotine dependence; Z88.6 Allergy status to analgesic agent; Z88.5 Allergy status to narcotic agent; Z88.0 Allergy status to penicillin; Z88.8 Allergy status to other drugs, medicaments and biological substances; Z79.899 Other long term (current) drug therapy; D61.818 Other pancytopenia
CPT/HCPCS: 76705; 80048; 80076; 83690; 85025; 96361; 96372; 96374; 96375; 96376; 99285; J0597; J1170; J1650; J3010

== ENCOUNTER 2017-04-07 07:54 | Emergency (ER) | payer OTHER ==
[~2017-04-07] VITALS: Ht 152.4 cm; Wt 55.9 kg
[~2017-04-07 07:54] MED LIST changes: +D 50CAP PO; +IBUP-1114 PO
[2017-04-07] MEDS ORDERED: PRIL20CA9 PO (08:19)
[2017-04-07] MEDS ORDERED: FLUTISP (08:26)
[2017-04-07] MEDS ORDERED: AZEL1SPR3 (08:26)
[2017-04-07] MEDS ORDERED: AMLO10TA2 PO (08:26)
[2017-04-07] MEDS ORDERED: MECL-68 PO (08:26)
[2017-04-07 09:33] LABS: BASO % 0.3 % (0.0-1.0); EOS # 0.1 10^3/uL (0.0-0.50); EOS % 1.5 % (0.0-3.0); IMMATURE GRANULOCYTE % 0.3 % (0-0); LYMPH # 2.1 10^3/uL (1.5-4.5); LYMPH % 61.1 % (24.0-44.0); MEAN CORPUSCULAR HEMOGLOBIN 28.4 pg (27.0-33.0); MEAN CORPUSCULAR HGB CONC 32.6 g/dl (32.0-36.5); MEAN CORPUSCULAR VOLUME 87.3 fl (80.0-96.0); MONO # 0.2 10^3/uL (0.0-0.8); NEUTROPHILS # 1.1 10^3/uL (1.8-7.7); NEUTROPHILS % 31.8 % (36.0-66.0); PLATELET COUNT, AUTOMATED 104 10^3/uL (150-450); RED CELL DISTRIBUTION WIDTH 13.7 % (11.5-14.5); WHITE BLOOD COUNT 3.4 10^3/uL (4.0-10.0)
[2017-04-07 09:48] LABS: INR 1.03
[2017-04-07 10:06] LABS: ALKALINE PHOSPHATASE 105 U/L (45-117); ALT/SGPT 17 U/L (12-78); AST/SGOT 13 U/L (7-37); BILIRUBIN,DIRECT 0.1 MG/DL (0.0-0.2); BILIRUBIN,TOTAL 0.4 MG/DL (0.2-1.0); BLOOD UREA NITROGEN 15 MG/DL (7-18); CALCIUM LEVEL 8.6 MG/DL (8.5-10.1); CREATININE FOR GFR 0.57 MG/DL (0.55-1.02); GLUCOSE, FASTING 82 MG/DL (70-105); TOTAL PROTEIN 6.5 GM/DL (6.4-8.2)
[2017-04-07 10:17] LABS: ANION GAP 5 MEQ/L (8-16); CARBON DIOXIDE LEVEL 27 MEQ/L (21-32); CHLORIDE LEVEL 110 MEQ/L (98-107); POTASSIUM SERUM 3.7 MEQ/L (3.5-5.1); SODIUM LEVEL 142 MEQ/L (136-145)
[2017-04-07 10:19] LABS: ALBUMIN 3.1 GM/DL (3.2-5.2); ALBUMIN/GLOBULIN RATIO 0.91 (1.00-1.93)
[2017-04-07] MEDS ORDERED: ONDANSETRON 4MG/2ML VIAL (J2405) IV ONE (10:30)
[2017-04-07] MEDS: HYDROmorphone HCL 1 MG/ML SYRINGE (J1170) IV PRN ×2 (10:44→11:50)
[2017-04-07] MEDS ORDERED: oxyCODONE 5MG TAB PO ONE (12:30)
[2017-04-07 13:05] VITALS: BP 173/93
--- NOTE | 2017-04-07 14:20 | ECGEPIP ---
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
== END 2017-04-07 13:58 | disposition home or self-care (01) ==
LOC: EDBD 07:54 → M ED 07:54
DX: R10.9 Unspecified abdominal pain (principal); G89.4 Chronic pain syndrome; R00.1 Bradycardia, unspecified; Z87.891 Personal history of nicotine dependence; Z85.3 Personal history of malignant neoplasm of breast; N28.9 Disorder of kidney and ureter, unspecified; G43.909 Migraine, unspecified, not intractable, without status migrainosus; R42 Dizziness and giddiness; I10 Essential (primary) hypertension; I50.30 Unspecified diastolic (congestive) heart failure; I83.009 Varicose veins of unspecified lower extremity with ulcer of unspecified site; Z93.0 Tracheostomy status; G47.30 Sleep apnea, unspecified; Z87.01 Personal history of pneumonia (recurrent); D84.1 Defects in the complement system; K92.9 Disease of digestive system, unspecified; K52.9 Noninfective gastroenteritis and colitis, unspecified; Z87.440 Personal history of urinary (tract) infections; Z92.21 Personal history of antineoplastic chemotherapy; Z90.12 Acquired absence of left breast and nipple; Z86.39 Personal history of other endocrine, nutritional and metabolic disease; K76.9 Liver disease, unspecified; Z86.19 Personal history of other infectious and parasitic diseases; M41.9 Scoliosis, unspecified; M81.0 Age-related osteoporosis without current pathological fracture; F41.9 Anxiety disorder, unspecified; F32.9 Major depressive disorder, single episode, unspecified; Z79.899 Other long term (current) drug therapy; Z88.6 Allergy status to analgesic agent; Z88.5 Allergy status to narcotic agent; Z88.0 Allergy status to penicillin; Z88.8 Allergy status to other drugs, medicaments and biological substances
CPT/HCPCS: 80048; 80076; 83605; 83690; 85025; 85610; 93000; 93041; 96374; 96375; 99284; J1170; J2405

== ENCOUNTER 2017-04-25 16:23 | Inpatient (IN) | payer OTHER ==
[~2017-04-25] VITALS: Ht 152.4 cm; Wt 56.8 kg
[~2017-04-25 16:23] MED LIST changes: +AZEL1SPR3; +FLUTISP; +PRIL20CA9 PO
[2017-04-25] MEDS ORDERED: ONDANSETRON 4MG/2ML VIAL (J2405) IV ONE (16:45)
[2017-04-25] MEDS: HYDROmorphone HCL 1 MG/ML SYRINGE (J1170) IV PRN ×2 (16:49→17:35)
[2017-04-25 17:06] LABS: BASO % 0.8 % (0.0-1.0); EOS # 0.1 10^3/uL (0.0-0.50); IMMATURE GRANULOCYTE % 0.4 % (0-0); LYMPH # 2.5 10^3/uL (1.5-4.5); MEAN CORPUSCULAR HEMOGLOBIN 28.2 pg (27.0-33.0); MEAN CORPUSCULAR HGB CONC 32.3 g/dl (32.0-36.5); MEAN CORPUSCULAR VOLUME 87.5 fl (80.0-96.0); MONO # 0.2 10^3/uL (0.0-0.8); MONO % 4.4 % (0.0-5.0); NEUTROPHILS # 2.1 10^3/uL (1.8-7.7); NEUTROPHILS % 42.4 % (36.0-66.0); PLATELET COUNT, AUTOMATED 147 10^3/uL (150-450); RED CELL DISTRIBUTION WIDTH 13.8 % (11.5-14.5)
[2017-04-25 17:25] LABS: INR 1.19
[2017-04-25 17:32] LABS: ALBUMIN 3.1 GM/DL (3.2-5.2); ALBUMIN/GLOBULIN RATIO 0.79 (1.00-1.93); ALKALINE PHOSPHATASE 111 U/L (45-117); ALT/SGPT 18 U/L (12-78); ANION GAP 3 MEQ/L (8-16); AST/SGOT 14 U/L (7-37); BILIRUBIN,DIRECT 0.1 MG/DL (0.0-0.2); BILIRUBIN,TOTAL 0.4 MG/DL (0.2-1.0); BLOOD UREA NITROGEN 24 MG/DL (7-18); CALCIUM LEVEL 8.2 MG/DL (8.5-10.1); CARBON DIOXIDE LEVEL 32 MEQ/L (21-32); CHLORIDE LEVEL 106 MEQ/L (98-107); CREATININE FOR GFR 0.62 MG/DL (0.55-1.02); GLOMERULAR FILTRATION RATE > 60.0 (>51); GLUCOSE, FASTING 104 MG/DL (70-105); SODIUM LEVEL 141 MEQ/L (136-145)
[2017-04-25] MEDS ORDERED: HYDROmorphone HCL 1 MG/ML SYRINGE (J1170) IV PRN ×2 (18:15→22:15)
[2017-04-25] MEDS ORDERED: MOVA1TAB2 PO (18:44)
[2017-04-25] MEDS ORDERED: CYMB60CA3 PO (18:44)
[2017-04-25 20:23] LABS: BASO % 0.7 % (0.0-1.0); EOS # 0.1 10^3/uL (0.0-0.50); EOS % 2.4 % (0.0-3.0); IMMATURE GRANULOCYTE % 0.2 % (0-0); LYMPH # 2.1 10^3/uL (1.5-4.5); LYMPH % 50.1 % (24.0-44.0); MEAN CORPUSCULAR HEMOGLOBIN 28.2 pg (27.0-33.0); MEAN CORPUSCULAR HGB CONC 32.4 g/dl (32.0-36.5); MEAN CORPUSCULAR VOLUME 87.1 fl (80.0-96.0); MONO # 0.2 10^3/uL (0.0-0.8); MONO % 5.5 % (0.0-5.0); NEUTROPHILS # 1.7 10^3/uL (1.8-7.7); NEUTROPHILS % 41.1 % (36.0-66.0); PLATELET COUNT, AUTOMATED 143 10^3/uL (150-450); RED CELL DISTRIBUTION WIDTH 13.9 % (11.5-14.5); WHITE BLOOD COUNT 4.2 10^3/uL (4.0-10.0)
[2017-04-25 20:46] LABS: ALBUMIN 3.1 GM/DL (3.2-5.2); ALBUMIN/GLOBULIN RATIO 0.89 (1.00-1.93); ALKALINE PHOSPHATASE 111 U/L (45-117); ALT/SGPT 17 U/L (12-78); AMYLASE 50 U/L (25-115); ANION GAP 2 MEQ/L (8-16); AST/SGOT 12 U/L (7-37); BILIRUBIN,DIRECT 0.1 MG/DL (0.0-0.2); BILIRUBIN,TOTAL 0.3 MG/DL (0.2-1.0); BLOOD UREA NITROGEN 24 MG/DL (7-18); CALCIUM LEVEL 8.3 MG/DL (8.5-10.1); CARBON DIOXIDE LEVEL 33 MEQ/L (21-32); CHLORIDE LEVEL 107 MEQ/L (98-107); CREATININE FOR GFR 0.65 MG/DL (0.55-1.02); GLOMERULAR FILTRATION RATE > 60.0 (>51); GLUCOSE, FASTING 82 MG/DL (70-105); SODIUM LEVEL 142 MEQ/L (136-145); TOTAL PROTEIN 6.6 GM/DL (6.4-8.2)
[2017-04-25] MEDS: ATENOLOL 50 MG TAB PO SCH (21:00)
[2017-04-25] MEDS ORDERED: MECLIZINE 25 MG TABLET PO PRN (22:15)
[2017-04-25] MEDS ORDERED: CALCIUM CARBONATE 500 MG CHEW U/D PO PRN (22:15)
[2017-04-25] MEDS ORDERED: ONDANSETRON 4MG/2ML VIAL (J2405) IV PRN (22:15)
[2017-04-25] MEDS ORDERED: PROMETHAZINE 25 MG TAB PO PRN (22:15)
[2017-04-25] MEDS ORDERED: ACETAMINOPHEN TAB 650MG DOSE (2X325MG) PO PRN (22:15)
--- NOTE | 2017-04-25 22:22 | HPEPDOC ---
[facility] Medical History & Physical Date of Admission Apr 25, 2017 History and Physical PRIMARY CARE PROVIDER: Kamron FERGUSON ATTENDING: Dr. Rc Cedeño CHIEF COMPLAINT: Abdominal pain/eye swelling HISTORY OF PRESENT ILLNESS: This is a 56-year-old female past with history of angioedema, C1 esterase deficiency, diastolic heart failure, hypertension, hepatitis B/C, hypertension, history of left breast cancer, osteoporosis,, bile duct dilation status post ERCP stent placement and removal, chronic anemia, history of right adrenal mass , depression, status post trach who presents complaining of a angioedema flare. Patient states that she usually gets flares from either emotional or physical distress. States she recently had an emotional episode where her son came back from the [employer] on Wednesday and surprised her. She believes that this may have caused her to have a flare. Patient states that she woke up this morning with right eye swelling with transition to the fore head and subsequent left eye swelling at 11 AM. At 1 PM , she took 1 dose of her C1 esterase infusion and had some relief. She also complains of lower quadrant abdominal cramping and sharp pain which she feels offer angina edema flare. And she states that she also recently had an ERCP done 2 weeks ago at [place] and had a prolonged stay given and angioedema flare. At that time she had a liver biopsy and scraping. Patient states she had mild improvement of her swelling of her face however still has bilateral eyelid swelling. No chest pain/shortness of breath/ palpitations. No difficulty swallowing. Patient states that when her eyes get swollen, typically takes 3-5 days for them to subside. No fevers or chills. Some nausea however no vomiting. No diarrhea. PAST MEDICAL HISTORY: As per HPI PAST SURGICAL HISTORY: Cholecystectomy, teeth extraction, ERCP status post stents placement and removal, [place], right hip screw, trach, multiple TLC is, EGD, modified radical mastectomy with chemotherapy, appendectomy, tubal ligation SOCIAL HISTORY: History of tobacco abuse 1 pack per day for 10 years however quit 15 years ago. Denies alcohol or illicit drug use FAMILY HISTORY: Noncontributory ALLERGIES: Please see below. REVIEW OF SYSTEMS: HEENT: Denies sore throat/headache CARDIOVASCULAR: Denies chest pain/palpitations RESPIRATORY: Denies shortness of breath/cough GASTROINTESTINAL: denies nausea/vomiting GENITOURINARY: Denies dysuria/urinary urgency. MUSCULOSKELETAL: Denies myalgias/arthralgias NEUROLOGICAL: Denies any focal weakness HOME MEDICATIONS: Please see below. PHYSICAL EXAMINATION: Vitals: (see below) General: No acute distress, laying comfortably in bed. HEENT: Moist mucous membranes. Bilateral eyelids with significant swelling however no redness or discharge. Neck: No JVD or lymphadenopathy. Trach intact. Cardiac: RRR, No murmurs Pulm: Clear to auscultation b/l. No wheezing, rhonchi Abd: Mild tenderness to palpation in the lower quadrants. No rebound guarding or rigidity. Mildly distended. Positive bowel sounds. Ext: No edema or cyanosis LABORATORY DATA: See below. IMAGING: CT abdomen and pelvis on 04/25/17 pending MICROBIOLOGY: Please see below. ASSESSMENT/PLAN: 1. Angioedema flare- history of C1 esterase deficiency. Patient states she has mild improvement of her symptoms however still has eyelid swelling and the abdominal discomfort. She has no respiratory compromise and no dysphagia. States her last C1 esterase infusion was at 1 PM, and is able to take another one right now. She brought her C1 esterase infusions with her. We'll also control the patient's pain with continuing her home opioid medications, and add Dilaudid for breakthrough pain. A CT of the abdomen and pelvis is pending at this time. 2. History of diastolic heart failure compensated 3. History of common bile duct dilation status post ERCP and stent placement and removal. LFTs within normal limits. 4. History of hypertension controlled 5. History of hepatitis B/C outpatient follow-up 6. History of osteoporosis outpatient follow-up 7. Status post trach given recurrent episodes of angioedema, stable DVT prophylaxis enoxaparin Patient will be followed by Dr. Rc Cedeño starting 04/26/17 at 7 AM. Vital Signs Vital Signs Date Time Temp Pulse Resp B/P (MAP) Pulse Ox O2 Delivery O2 Flow Rate FiO2 04/25/17 20:06 58 16 100 Nasal Cannula 2.0 04/25/17 19:46 142/82 (102) 04/25/17 17:00 97.9 Laboratory Data Labs 24H Laboratory Tests 2 04/25/17 16:42: Immature Granulocyte % (Auto) 0.4H, White Blood Count 5.0, Red Blood Count 3.19L , Hemoglobin 9.0L, Hematocrit 27.9L, Mean Corpuscular Volume 87.5, Mean Corpuscular Hemoglobin 28.2, Mean Corpuscular Hemoglobin Concent 32.3, Red Cell Distribution Width 13.8, Platelet Count 147L, Neutrophils (%) (Auto) 42.4, Lymphocytes (%) (Auto) 50.0H, Monocytes (%) (Auto) 4.4, Eosinophils (%) (Auto) 2.0, Basophils (%) (Auto) 0.8, Neutrophils # (Auto) 2.1, Lymphocytes # (Auto) 2.5, Monocytes # (Auto) 0.2, Eosinophils # (Auto) 0.1, Basophils # (Auto) 0.0, Immature Granulocyte # (Auto) 0.0, Nucleated Red Blood Cells % (auto) 0.0, Prothrombin Time 15.4H, Prothromb Time International Ratio 1.19, Anion Gap 3L, Glomerular Filtration Rate > 60.0, Calcium Level 8.2L, Aspartate Amino Transf ( AST/SGOT) 14, Alanine Aminotransferase (ALT/SGPT) 18, Alkaline Phosphatase 111, Total Bilirubin 0.4, Direct Bilirubin 0.1, Total Protein 7.0, Albumin 3.1L, Albumin/Globulin Ratio 0.79L, Lipase 121 04/25/17 20:12: Immature Granulocyte % (Auto) 0.2H, White Blood Count 4.2, Red Blood Count 3.19L , Hemoglobin 9.0L, Hematocrit 27.8L, Mean Corpuscular Volume 87.1, Mean Corpuscular Hemoglobin 28.2, Mean Corpuscular Hemoglobin Concent 32.4, Red Cell Distribution Width 13.9, Platelet Count 143L, Neutrophils (%) (Auto) 41.1, Lymphocytes (%) (Auto) 50.1H, Monocytes (%) (Auto) 5.5H, Eosinophils (%) (Auto) 2.4, Basophils (%) (Auto) 0.7, Neutrophils # (Auto) 1.7L, Lymphocytes # (Auto) 2.1, Monocytes # (Auto) 0.2, Eosinophils # (Auto) 0.1, Basophils # (Auto) 0.0, Immature Granulocyte # (Auto) 0.0, Nucleated Red Blood Cells % (auto) 0.0, Anion Gap 2L, Glomerular Filtration Rate > 60.0, Calcium Level 8.3L, Aspartate Amino Transf (AST/SGOT) 12, Alanine Aminotransferase (ALT/SGPT) 17, Alkaline Phosphatase 111, Total Bilirubin 0.3, Direct Bilirubin 0.1, Total Protein 6.6, Albumin 3.1L, Albumin/Globulin Ratio 0.89L, Lipase 111, Amylase Level 50 CBC/BMP Laboratory Tests 04/25/17 16:42 Red Blood Count 3.19 L, Mean Corpuscular Volume 87.5, Mean Corpuscular Hemoglobin 28.2, Mean Corpuscular Hemoglobin Concent 32.3, Red Cell Distribution Width 13.8, Neutrophils (%) (Auto) 42.4, Lymphocytes (%) (Auto) 50.0 H, Monocytes (%) (Auto) 4.4, Eosinophils (%) (Auto) 2.0, Basophils (%) ( Auto) 0.8, Neutrophils # (Auto) 2.1, Lymphocytes # (Auto) 2.5, Monocytes # (Auto ) 0.2, Eosinophils # (Auto) 0.1, Basophils # (Auto) 0.0 04/25/17 20:12 Red Blood Count 3.19 L, Mean Corpuscular Volume 87.1, Mean Corpuscular Hemoglobin 28.2, Mean Corpuscular Hemoglobin Concent 32.4, Red Cell Distribution Width 13.9, Neutrophils (%) (Auto) 41.1, Lymphocytes (%) (Auto) 50.1 H, Monocytes (%) (Auto) 5.5 H, Eosinophils (%) (Auto) 2.4, Basophils (%) ( Auto) 0.7, Neutrophils # (Auto) 1.7 L, Lymphocytes # (Auto) 2.1, Monocytes # ( Auto) 0.2, Eosinophils # (Auto) 0.1, Basophils # (Auto) 0.0 Home Medications Scheduled Atenolol (Atenolol) 50 Mg Tab, 50 MG PO BID Cetirizine HCl (Cetirizine HCl) 10 Mg Tab, 10 MG PO DAILY Clonazepam (Klonopin) 2 Mg Tab, 2 MG PO TID Duloxetine Hcl (Cymbalta) 30 Mg Cap, 30 MG PO DAILY 90MG TOTAL Duloxetine Hcl (Cymbalta) 60 Mg Cap, 60 MG PO DAILY 90mg TOTAL Ferrous Sulfate (Ferrous Sulfate) 325 Mg Tab, 325 MG PO DAILY DOES NOT TAKE IF CONSTIPATED Magnesium Oxide (Magnesium Oxide 400) 400 Mg Tab, 400 MG PO DAILY TAKES IN AFTERNOON Naloxegol Oxalate (Movantik) 25 Mg Tab, 25 MG PO QHS Omeprazole (Prilosec) 20 Mg Cap, 40 MG PO DAILY Oxycodone HCl (Oxycontin) 40 Mg Tab, 40 MG PO Q12H Potassium Chloride (Klor-Con M10) 10 Meq Tabcr, 20 MEQ PO BID Pramipexole Dihydrochloride (Mirapex) 0.25 Mg Tab, 0.25 MG PO QHS Tizanidine Hydrochloride (Tizanidine HCl) 4 Mg Cap, 4 MG PO TID Scheduled PRN C1 Esterase Inhibitor (Human) (Berinert) 500 Unit Inj, 2,000 UNIT IV ASDIRECTED PRN for FLARE UP Calcium Carbonate (Tums Ultra 1000) 1,000 Mg Chw, 1,250 MG PO DAILY PRN for HEARTBURN/INDIGESTION Docusate Sodium (Colace) 100 Mg Cap, 100 MG PO BID PRN for CONSTIPATION Meclizine HCl (Meclizine HCl) 25 Mg Tab, 25 MG PO TID PRN for VERTIGO/DIZZINESS Oxycodone Hcl (Oxycodone HCl) 30 Mg Tab, 30 MG PO Q4H PRN for PAIN Promethazine HCl (Promethazine HCl) 25 Mg Tab, 25 MG PO BID PRN for NAUSEA Allergies Coded Allergies: Aspirin (Verified Allergy, Severe, TRIGGERS ANGIOEDEMA, 08/23/12) Codeine (Verified Allergy, Severe, EXACERBATES ANGIOEDEMA, 08/23/12) Ketorolac (Verified Allergy, Intermediate, HIVES, 05/16/16) PT HAS TAKEN IBUPROFEN IN THE PAST WITHOUT ANY ISSUES Penicillins (Verified Allergy, Intermediate, HIVES, RASH, 08/23/12) HIVES, WORSENS ANGIOEDEMA Pentazocine (Verified Adverse Reaction, Severe, HALLUCINATIONS, 08/23/12) Prochlorperazine (Verified Adverse Reaction, Severe, SEVERE ANXIETY, ) Gabapentin (Verified Adverse Reaction, Intermediate, CONFUSION, 08/23/12) Pregabalin (Verified Adverse Reaction, Intermediate, CONFUSION, 08/23/12) Morphine (Verified Adverse Reaction, Mild, HEADACHES,CONFUSION, 08/23/12) DENNIS PALAFOX MD Apr 25, 2017 22:22
[2017-04-25] MEDS ORDERED: NS 1,000 ML IV SCH (22:30)
[2017-04-25 23:20] VITALS: BP 146/78
[2017-04-26] VITALS (19 sets, daily range): BP systolic 99–116; BP diastolic 55–65; O2SAT 88–100
[2017-04-26] MEDS: tiZANidine 4 MG TAB PO SCH ×4 (01:06→20:28)
[2017-04-26] MEDS: oxyCODONE 20 MG CR TAB PO SCH ×3 (01:08→20:22)
[2017-04-26] MEDS: POTASSIUM CHLORIDE 10 MEQ SR TABLET PO SCH ×3 (01:08→20:24)
[2017-04-26] MEDS: PRAMIPEXOLE 0.25 MG TAB PO SCH ×2 (01:09→20:25)
[2017-04-26] MEDS: clonazePAM 0.5 MG TAB PO SCH ×4 (01:09→20:24)
[2017-04-26] MEDS: [UNRECOGNIZED DRUG - OTHER] IV PRN (04:35)
[2017-04-26] MEDS: oxyCODONE 5MG TAB PO PRN ×4 (04:58→22:08)
[2017-04-26 05:52] LABS: MEAN CORPUSCULAR HEMOGLOBIN 27.8 pg (27.0-33.0); MEAN CORPUSCULAR HGB CONC 31.5 g/dl (32.0-36.5); MEAN CORPUSCULAR VOLUME 88.1 fl (80.0-96.0); PLATELET COUNT, AUTOMATED 125 10^3/uL (150-450); WHITE BLOOD COUNT 3.4 10^3/uL (4.0-10.0)
[2017-04-26 06:21] LABS: ALBUMIN 2.8 GM/DL (3.2-5.2); ALBUMIN/GLOBULIN RATIO 0.88 (1.00-1.93); ALKALINE PHOSPHATASE 107 U/L (45-117); ALT/SGPT 14 U/L (12-78); ANION GAP 5 MEQ/L (8-16); AST/SGOT 12 U/L (7-37); BILIRUBIN,TOTAL 0.4 MG/DL (0.2-1.0); BLOOD UREA NITROGEN 22 MG/DL (7-18); CARBON DIOXIDE LEVEL 33 MEQ/L (21-32); CHLORIDE LEVEL 106 MEQ/L (98-107); CREATININE FOR GFR 0.57 MG/DL (0.55-1.02); GLOMERULAR FILTRATION RATE > 60.0 (>51); GLUCOSE, FASTING 80 MG/DL (70-105); MAGNESIUM LEVEL 1.9 MG/DL (1.8-2.4); POTASSIUM SERUM 4.2 MEQ/L (3.5-5.1); SODIUM LEVEL 144 MEQ/L (136-145)
--- NOTE | 2017-04-26 07:15 | REPUSA ---
CT of the abdomen and pelvis without contrast Clinical statement: Pain. Technique: Multiple axial CT images were obtained from the base of the lungs to the floor of the pelv is utilizing 5 mm axial slices without administration of contrast. Coronal and sagittal reconstructio ns were also obtained. Comparison: 02/14/2017. Findings: Chest: The visualized lung bases are clear. Abdomen: The kidneys are normal in size bilaterally. There is no evidence of hydronephrosis or nephro lithiasis. The patient is status post cholecystectomy. The liver, spleen, pancreas, and adrenal gland s are unremarkable. The aorta demonstrates normal caliber and contour. There is no abdominal lymphade nopathy or ascites. Pelvis: Moderate amount of stool fills the colon. The bowel is otherwise unremarkable, with no obstru ctive or inflammatory changes. The urinary bladder is within normal limits. There is no pelvic lympha denopathy or ascites. The other pelvic structures appear unremarkable. Bones: There are no suspicious osseous abnormalities seen. Impression: Moderate constipation. Otherwise unremarkable CT examination of the abdomen and pelvis.
[2017-04-26] MEDS: FERROUS SULFATE 325MG TAB PO SCH (08:44)
[2017-04-26] MEDS: OMEPRAZOLE 20 MG CAP PO SCH (08:44)
[2017-04-26] MEDS: ENOXAPARIN 40 MG/0.4 ML SYRINGE (J1650) SC SCH (08:44)
[2017-04-26] MEDS: DULoxetine 30 MG CAP (CYMBALTA) PO SCH (08:44)
[2017-04-26] MEDS: CETIRIZINE (ZyrTEC) 10 MG TAB PO SCH (08:45)
[2017-04-26] MEDS: ATENOLOL 50 MG TAB PO SCH ×2 (08:45→20:23)
[2017-04-26] MEDS ORDERED: DULoxetine 30 MG CAP (CYMBALTA) PO SCH (09:00)
--- NOTE | 2017-04-26 10:38 | IPNPDOC ---
Subjective Date Seen The patient was seen on 04/26/17. Subjective Chief Complaint/HPI The patient is a 56-year-old female admitted with a reason for visit of Angioedema. Complaint of abd and facial pain associated with swelling. No other concerns. Able to open right eye slightly, denies vision changes. Constitutional: Denies: Chills, Fever Eyes: Reports: Other (b/l eye swelling, periorbital pain/pressure), Denies: Vision change ENT: Denies: Ear Pain, Dysphagia Pulmonary: Denies: Dyspnea, Cough Cardiovascular: Denies: Chest Pain, Palpitations, Edema, Lt Headedness Gastrointestinal: Reports: Abdominal Pain, Denies: Nausea, Vomiting Neurological: Denies: Weakness, Numbness Objective Physical Examination General Exam: Positive: Alert, Cooperative, No Acute Distress Eye Exam: Positive: Other Eye Symptoms (b/l eyes swollen shut, no discharge. Able to open right eye with movement and vision intact) ENT Exam: Positive: Tongue Midline, Other ENT (upper & lower lips swollen, able to communicate coherently) Neck Exam: Positive: Supple Chest Exam: Positive: Clear to auscultation, Normal air movement Heart Exam: Positive: Rate Normal, Regular Rhythm, Normal S1, Normal S2 Telemetry: Positive: No significant arrhythmia Abdomen Exam: Positive: Normal bowel sounds, Soft, Negative: Tenderness Extremity Exam: Negative: Cyanosis, Edema, Tenderness Neuro Exam: Positive: Normal Tone, Sensation Intact Psych Exam: Positive: Mental status NL, Mood NL, Oriented x 3 Assessment /Plan Assessment Angioedema flare hx of C1 esterase deficiency no respiratory distress or difficulty with po intake. Able to slightly open right eye, denies vision change continue C1 esterase infusions pain control with home opioid meds, and Dilaudid for breakthrough pain CT of abd/pelvis non-concerning Pancytopenia likely dilutional, monitor hx chronic anemia, continue home iron supplements Hx of diastolic CHF compensated History of common bile duct dilation status post ERCP and stent placement and removal LFTs within normal limits. HTN controlled Hx of hepatitis B/C LFTs WNL Osteoporosis outpatient follow-up s/p trach due to recurrent episodes of angioedema stable Depression continue home med DVT ppx: Lovenox Plan/VTE VTE Prophylaxis Ordered?: Yes VS, I&O, 24H, Fishbone Vital Signs/I&O Vital Signs Date Time Temp Pulse Resp B/P (MAP) Pulse Ox O2 Delivery O2 Flow Rate FiO2 12/4/17 08:45 68 116/63 04/26/17 06:07 12 04/26/17 04:20 97.5 100 Nasal Cannula 2.0 Laboratory Data 24H LABS Laboratory Tests 2 04/25/17 16:42: Immature Granulocyte % (Auto) 0.4H, White Blood Count 5.0, Red Blood Count 3.19L , Hemoglobin 9.0L, Hematocrit 27.9L, Mean Corpuscular Volume 87.5, Mean Corpuscular Hemoglobin 28.2, Mean Corpuscular Hemoglobin Concent 32.3, Red Cell Distribution Width 13.8, Platelet Count 147L, Neutrophils (%) (Auto) 42.4, Lymphocytes (%) (Auto) 50.0H, Monocytes (%) (Auto) 4.4, Eosinophils (%) (Auto) 2.0, Basophils (%) (Auto) 0.8, Neutrophils # (Auto) 2.1, Lymphocytes # (Auto) 2.5, Monocytes # (Auto) 0.2, Eosinophils # (Auto) 0.1, Basophils # (Auto) 0.0, Immature Granulocyte # (Auto) 0.0, Nucleated Red Blood Cells % (auto) 0.0, Prothrombin Time 15.4H, Prothromb Time International Ratio 1.19, Anion Gap 3L, Glomerular Filtration Rate > 60.0, Calcium Level 8.2L, Aspartate Amino Transf ( AST/SGOT) 14, Alanine Aminotransferase (ALT/SGPT) 18, Alkaline Phosphatase 111, Total Bilirubin 0.4, Direct Bilirubin 0.1, Total Protein 7.0, Albumin 3.1L, Albumin/Globulin Ratio 0.79L, Lipase 121 04/25/17 20:12: Immature Granulocyte % (Auto) 0.2H, White Blood Count 4.2, Red Blood Count 3.19L , Hemoglobin 9.0L, Hematocrit 27.8L, Mean Corpuscular Volume 87.1, Mean Corpuscular Hemoglobin 28.2, Mean Corpuscular Hemoglobin Concent 32.4, Red Cell Distribution Width 13.9, Platelet Count 143L, Neutrophils (%) (Auto) 41.1, Lymphocytes (%) (Auto) 50.1H, Monocytes (%) (Auto) 5.5H, Eosinophils (%) (Auto) 2.4, Basophils (%) (Auto) 0.7, Neutrophils # (Auto) 1.7L, Lymphocytes # (Auto) 2.1, Monocytes # (Auto) 0.2, Eosinophils # (Auto) 0.1, Basophils # (Auto) 0.0, Immature Granulocyte # (Auto) 0.0, Nucleated Red Blood Cells % (auto) 0.0, Anion Gap 2L, Glomerular Filtration Rate > 60.0, Calcium Level 8.3L, Aspartate Amino Transf (AST/SGOT) 12, Alanine Aminotransferase (ALT/SGPT) 17, Alkaline Phosphatase 111, Total Bilirubin 0.3, Direct Bilirubin 0.1, Total Protein 6.6, Albumin 3.1L, Albumin/Globulin Ratio 0.89L, Lipase 111, Amylase Level 50 04/26/17 05:25: Nucleated Red Blood Cells % (auto) 0.0, Anion Gap 5L, Glomerular Filtration Rate > 60.0, Calcium Level 8.0L, Aspartate Amino Transf (AST/SGOT) 12, Alanine Aminotransferase (ALT/SGPT) 14, Alkaline Phosphatase 107, Total Bilirubin 0.4, Total Protein 6.0L, Albumin 2.8L, Albumin/Globulin Ratio 0.88L, Blood Urea Nitrogen 22H, Creatinine 0.57, Sodium Level 144, Potassium Level 4.2, Chloride Level 106, Carbon Dioxide Level 33H, Magnesium Level 1.9 CBC/BMP Laboratory Tests 04/25/17 16:42 Red Blood Count 3.19 L, Mean Corpuscular Volume 87.5, Mean Corpuscular Hemoglobin 28.2, Mean Corpuscular Hemoglobin Concent 32.3, Red Cell Distribution Width 13.8, Neutrophils (%) (Auto) 42.4, Lymphocytes (%) (Auto) 50.0 H, Monocytes (%) (Auto) 4.4, Eosinophils (%) (Auto) 2.0, Basophils (%) ( Auto) 0.8, Neutrophils # (Auto) 2.1, Lymphocytes # (Auto) 2.5, Monocytes # (Auto ) 0.2, Eosinophils # (Auto) 0.1, Basophils # (Auto) 0.0 04/25/17 20:12 Red Blood Count 3.19 L, Mean Corpuscular Volume 87.1, Mean Corpuscular Hemoglobin 28.2, Mean Corpuscular Hemoglobin Concent 32.4, Red Cell Distribution Width 13.9, Neutrophils (%) (Auto) 41.1, Lymphocytes (%) (Auto) 50.1 H, Monocytes (%) (Auto) 5.5 H, Eosinophils (%) (Auto) 2.4, Basophils (%) ( Auto) 0.7, Neutrophils # (Auto) 1.7 L, Lymphocytes # (Auto) 2.1, Monocytes # ( Auto) 0.2, Eosinophils # (Auto) 0.1, Basophils # (Auto) 0.0 04/26/17 05:25 Red Blood Count 2.95 L, Mean Corpuscular Volume 88.1, Mean Corpuscular Hemoglobin 27.8, Mean Corpuscular Hemoglobin Concent 31.5 L, Red Cell Distribution Width 14.0, Calcium Level 8.0 L, Aspartate Amino Transf (AST/SGOT) 12, Alanine Aminotransferase (ALT/SGPT) 14, Alkaline Phosphatase 107, Total Bilirubin 0.4, Total Protein 6.0 L, Albumin 2.8 L GME ATTESTATION GME ATTESTATION My faculty preceptor for this patient encounter was physically present during the encounter and was fully available. All aspects of the patient interview, examination, medical decision making process, and medical care plan development were reviewed and approved by the faculty preceptor. The faculty preceptor is aware and concurs with the plan as stated in the body of this note and will attest to such by his/her cosignature. AYAKA LAZO DO Apr 26, 2017 09:05
[2017-04-26] MEDS: MAGNESIUM OXIDE 400 MG TAB (MAG-OX) PO SCH (13:59)
[2017-04-27] VITALS (26 sets, daily range): BP systolic 109–121; BP diastolic 57–72; O2SAT 92–100
[2017-04-27] MEDS: MIRALAX *UNIT DOSE* 17GM PACKET PO SCH ×2 (00:41→08:24)
[2017-04-27] MEDS: DOCUSATE SODIUM 100 MG CAP PO PRN ×2 (00:41→08:18)
[2017-04-27] MEDS ORDERED: MAGNESIUM CITRATE 300 ML BTL PO ONE (01:00)
[2017-04-27] MEDS: oxyCODONE 5MG TAB PO PRN (02:09)
[2017-04-27 06:34] LABS: MEAN CORPUSCULAR HGB CONC 31.6 g/dl (32.0-36.5); MEAN CORPUSCULAR VOLUME 88.9 fl (80.0-96.0); PLATELET COUNT, AUTOMATED 114 10^3/uL (150-450); RED CELL DISTRIBUTION WIDTH 13.7 % (11.5-14.5); WHITE BLOOD COUNT 3.9 10^3/uL (4.0-10.0)
[2017-04-27 07:03] LABS: ALBUMIN/GLOBULIN RATIO 0.88 (1.00-1.93); ALKALINE PHOSPHATASE 112 U/L (45-117); ALT/SGPT 16 U/L (12-78); ANION GAP 3 MEQ/L (8-16); AST/SGOT 11 U/L (7-37); BILIRUBIN,TOTAL 0.3 MG/DL (0.2-1.0); BLOOD UREA NITROGEN 16 MG/DL (7-18); CALCIUM LEVEL 8.1 MG/DL (8.5-10.1); CARBON DIOXIDE LEVEL 32 MEQ/L (21-32); CHLORIDE LEVEL 105 MEQ/L (98-107); CREATININE FOR GFR 0.59 MG/DL (0.55-1.02); GLOMERULAR FILTRATION RATE > 60.0 (>51); GLUCOSE, FASTING 85 MG/DL (70-105); POTASSIUM SERUM 4.2 MEQ/L (3.5-5.1); SODIUM LEVEL 140 MEQ/L (136-145); TOTAL PROTEIN 6.4 GM/DL (6.4-8.2)
[2017-04-27] MEDS: DULoxetine 30 MG CAP (CYMBALTA) PO SCH (08:17)
[2017-04-27] MEDS: FERROUS SULFATE 325MG TAB PO SCH (08:17)
[2017-04-27] MEDS: oxyCODONE 20 MG CR TAB PO SCH ×2 (08:17→20:29)
[2017-04-27] MEDS: clonazePAM 0.5 MG TAB PO SCH ×3 (08:17→20:29)
[2017-04-27] MEDS: OMEPRAZOLE 20 MG CAP PO SCH (08:18)
[2017-04-27] MEDS: ATENOLOL 50 MG TAB PO SCH ×2 (08:18→20:30)
[2017-04-27] MEDS: CETIRIZINE (ZyrTEC) 10 MG TAB PO SCH (08:19)
[2017-04-27] MEDS: ENOXAPARIN 40 MG/0.4 ML SYRINGE (J1650) SC SCH (08:19)
[2017-04-27] MEDS: tiZANidine 4 MG TAB PO SCH ×3 (08:25→20:30)
[2017-04-27] MEDS: POTASSIUM CHLORIDE 10 MEQ SR TABLET PO SCH ×2 (08:25→20:30)
[2017-04-27] MEDS: MAGNESIUM OXIDE 400 MG TAB (MAG-OX) PO SCH (16:21)
[2017-04-27] MEDS: [UNRECOGNIZED DRUG - OTHER] IV PRN (17:20)
[2017-04-27] MEDS: SODIUM CHLORIDE 0.9% INJ 10 ML SYR IV PRN (18:27)
[2017-04-27] MEDS: SENNA 8.6 MG TAB (SENOKOT) PO PRN (18:27)
--- NOTE | 2017-04-27 21:21 | IPNPDOC ---
Subjective Date Seen The patient was seen on 04/27/17. Subjective Chief Complaint/HPI The patient is a 56-year-old female admitted with a reason for visit of Angioedema. Able to open right eye slightly more than yesterday, left eye still swollen shut, and lips still swollen. Asking for Dilaudid for abd pain, but withheld due to fatigue and RR of 10 overnight. No acute complaints. Constitutional: Denies: Chills, Fever Eyes: Reports: Other (b/l eye swelling), Denies: Vision change ENT: Denies: Head Aches, Dysphagia Skin: Denies: Rash, Lesions Pulmonary: Denies: Dyspnea, Cough Cardiovascular: Denies: Chest Pain, Palpitations, Lt Headedness Gastrointestinal: Reports: Abdominal Pain, Constipation (last BM on admission) , Denies: Nausea, Vomiting Neurological: Denies: Weakness, Numbness Objective Physical Examination General Exam: Positive: Alert, Cooperative, No Acute Distress Eye Exam: Positive: Other Eye Symptoms (b/l eyes swollen shut, no discharge. Able to open right eye with movement and vision intact) ENT Exam: Positive: Tongue Midline, Other ENT (upper & lower lips swollen, able to communicate coherently) Neck Exam: Positive: Supple Chest Exam: Positive: Clear to auscultation, Normal air movement Heart Exam: Positive: Rate Normal, Regular Rhythm, Normal S1, Normal S2 Telemetry: Positive: No significant arrhythmia Abdomen Exam: Positive: Normal bowel sounds, Soft, Negative: Tenderness Extremity Exam: Negative: Cyanosis, Edema, Tenderness Neuro Exam: Positive: Normal Tone, Sensation Intact Psych Exam: Positive: Mental status NL, Mood NL, Oriented x 3 Assessment /Plan Assessment Angioedema flare hx of C1 esterase deficiency no respiratory distress or difficulty with po intake. Able to slightly open right eye, denies vision change, left eye still swollen shut continue C1 esterase infusions pain control with home opioid meds. D/C Dilaudid due to low RR overnight and pt sluggishness CT of abd/pelvis non-concerning Allergy/Immunology consulted. Appreciate Dr. Roca's input--note handwritten in chart: recommended to continue infusions immediately, if no improvement by tomorrow, repeat infusion and consider other underlying etiology , possibly infection vs obstruction. Pancytopenia likely dilutional, monitor hx chronic anemia, continue home iron supplements Hx of diastolic CHF compensated History of common bile duct dilation status post ERCP and stent placement and removal LFTs within normal limits. HTN controlled Hx of hepatitis B/C LFTs WNL Osteoporosis outpatient follow-up s/p trach due to recurrent episodes of angioedema stable Depression continue home med DVT ppx: Lovenox Plan/VTE VTE Prophylaxis Ordered?: Yes VS, I&O, 24H, Fishbone Vital Signs/I&O Vital Signs Date Time Temp Pulse Resp B/P (MAP) Pulse Ox O2 Delivery O2 Flow Rate FiO2 04/27/17 20:30 72 121/61 04/27/17 20:29 14 04/27/17 20:00 97.9 97 04/27/17 17:00 Nasal Cannula 2.0 I&O- Last 24 Hours up to 6 AM 04/28/17 06:00 Intake Total 1260 ml Output Total 850 ml Balance 410 ml Laboratory Data 24H LABS Laboratory Tests 2 04/27/17 06:00: Nucleated Red Blood Cells % (auto) 0.0 04/27/17 06:15: Anion Gap 3L, Glomerular Filtration Rate > 60.0, Blood Urea Nitrogen 16, Creatinine 0.59, Sodium Level 140, Potassium Level 4.2, Chloride Level 105, Carbon Dioxide Level 32, Calcium Level 8.1L, Aspartate Amino Transf (AST/SGOT) 11, Alanine Aminotransferase (ALT/SGPT) 16, Alkaline Phosphatase 112, Total Bilirubin 0.3, Total Protein 6.4, Albumin 3.0L, Magnesium Level 2.0, Albumin/ Globulin Ratio 0.88L CBC/BMP Laboratory Tests 04/27/17 06:00 Red Blood Count 2.96 L, Mean Corpuscular Volume 88.9, Mean Corpuscular Hemoglobin 28.0, Mean Corpuscular Hemoglobin Concent 31.6 L, Red Cell Distribution Width 13.7 04/27/17 06:15 Calcium Level 8.1 L, Aspartate Amino Transf (AST/SGOT) 11, Alanine Aminotransferase (ALT/SGPT) 16, Alkaline Phosphatase 112, Total Bilirubin 0.3, Total Protein 6.4, Albumin 3.0 L Microbiology Microbiology 04/25/17 Urine Culture, Received Pending GME ATTESTATION GME ATTESTATION My faculty preceptor for this patient encounter was physically present during the encounter and was fully available. All aspects of the patient interview, examination, medical decision making process, and medical care plan development were reviewed and approved by the faculty preceptor. The faculty preceptor is aware and concurs with the plan as stated in the body of this note and will attest to such by his/her cosignature. AYAKA LAZO DO Apr 27, 2017 21:21
[2017-04-27] MEDS: PRAMIPEXOLE 0.25 MG TAB PO SCH (21:33)
[2017-04-27] MEDS: MOVANTIK 25 MG PO SCH (23:28)
[2017-04-28] VITALS (16 sets, daily range): BP systolic 121–156; BP diastolic 63–80; O2SAT 91–100
[2017-04-28] MEDS: oxyCODONE 5MG TAB PO PRN ×3 (00:42→22:50)
[2017-04-28 06:20] LABS: MEAN CORPUSCULAR HEMOGLOBIN 27.9 pg (27.0-33.0); MEAN CORPUSCULAR HGB CONC 31.9 g/dl (32.0-36.5); MEAN CORPUSCULAR VOLUME 87.6 fl (80.0-96.0); PLATELET COUNT, AUTOMATED 121 10^3/uL (150-450); RED CELL DISTRIBUTION WIDTH 13.4 % (11.5-14.5); WHITE BLOOD COUNT 3.4 10^3/uL (4.0-10.0)
[2017-04-28 07:16] LABS: ALBUMIN 3.1 GM/DL (3.2-5.2); ALBUMIN/GLOBULIN RATIO 0.79 (1.00-1.93); ALKALINE PHOSPHATASE 115 U/L (45-117); ALT/SGPT 16 U/L (12-78); ANION GAP 2 MEQ/L (8-16); AST/SGOT 14 U/L (7-37); BILIRUBIN,TOTAL 0.3 MG/DL (0.2-1.0); BLOOD UREA NITROGEN 14 MG/DL (7-18); CALCIUM LEVEL 8.7 MG/DL (8.5-10.1); CARBON DIOXIDE LEVEL 36 MEQ/L (21-32); CHLORIDE LEVEL 101 MEQ/L (98-107); CREATININE FOR GFR 0.55 MG/DL (0.55-1.02); GLOMERULAR FILTRATION RATE > 60.0 (>51); GLUCOSE, FASTING 102 MG/DL (70-105); POTASSIUM SERUM 4.3 MEQ/L (3.5-5.1); SODIUM LEVEL 139 MEQ/L (136-145)
[2017-04-28] MEDS: SODIUM CHLORIDE 0.9% INJ 10 ML SYR IV SCH (08:51)
[2017-04-28] MEDS: MIRALAX *UNIT DOSE* 17GM PACKET PO SCH (08:51)
[2017-04-28] MEDS: ENOXAPARIN 40 MG/0.4 ML SYRINGE (J1650) SC SCH (08:52)
[2017-04-28] MEDS: DULoxetine 30 MG CAP (CYMBALTA) PO SCH (08:53)
[2017-04-28] MEDS: OMEPRAZOLE 20 MG CAP PO SCH (08:53)
[2017-04-28] MEDS: CETIRIZINE (ZyrTEC) 10 MG TAB PO SCH (08:53)
[2017-04-28] MEDS: ATENOLOL 50 MG TAB PO SCH ×2 (08:53→21:32)
[2017-04-28] MEDS: clonazePAM 0.5 MG TAB PO SCH ×3 (08:53→21:33)
[2017-04-28] MEDS: POTASSIUM CHLORIDE 10 MEQ SR TABLET PO SCH ×2 (08:54→21:32)
[2017-04-28] MEDS: tiZANidine 4 MG TAB PO SCH ×3 (08:54→21:33)
[2017-04-28] MEDS: FERROUS SULFATE 325MG TAB PO SCH (08:54)
[2017-04-28] MEDS: oxyCODONE 20 MG CR TAB PO SCH ×2 (08:55→21:32)
[2017-04-28] MEDS: DOCUSATE SODIUM 100 MG CAP PO PRN (09:10)
[2017-04-28] MEDS: SENNA 8.6 MG TAB (SENOKOT) PO PRN (09:10)
[2017-04-28] MEDS: MAGNESIUM OXIDE 400 MG TAB (MAG-OX) PO SCH (14:01)
--- NOTE | 2017-04-28 18:50 | IPNPDOC ---
Subjective Date Seen The patient was seen on 04/28/17. Subjective Chief Complaint/HPI The patient is a 56-year-old female admitted with a reason for visit of Angioedema. No acute complaints or events overnight. States her swelling is slowly improving. Constitutional: Denies: Chills, Fever Eyes: Denies: Vision change ENT: Denies: Dysphagia Skin: Denies: Rash Pulmonary: Denies: Dyspnea, Cough Cardiovascular: Denies: Chest Pain, Palpitations, Edema, Lt Headedness Gastrointestinal: Reports: Abdominal Pain, Constipation, Denies: Nausea, Vomiting Neurological: Denies: Weakness, Numbness Objective Physical Examination General Exam: Positive: Alert, Cooperative, No Acute Distress Eye Exam: Positive: Other Eye Symptoms (b/l eyes swollen shut, no discharge. Able to open right eye with movement and vision intact) ENT Exam: Positive: Tongue Midline, Other ENT (upper & lower lips swollen, able to communicate coherently) Neck Exam: Positive: Supple Chest Exam: Positive: Clear to auscultation, Normal air movement Heart Exam: Positive: Rate Normal, Regular Rhythm, Normal S1, Normal S2 Telemetry: Positive: No significant arrhythmia Abdomen Exam: Positive: Normal bowel sounds, Soft Extremity Exam: Negative: Cyanosis, Edema, Tenderness Neuro Exam: Positive: Normal Tone, Sensation Intact Psych Exam: Positive: Mental status NL, Mood NL, Oriented x 3 Assessment /Plan Assessment Angioedema flare hx of C1 esterase deficiency no respiratory distress or difficulty with po intake. Right eye almost fully healed, able to slightly open left eye, denies vision change or discharge received C1 esterase infusion yesterday, give another today pain control with home opioid meds CT of abd/pelvis non-concerning Allergy/Immunology consulted. Appreciate Dr. Roca's input--04/27 note handwritten in chart: recommended to continue infusions immediately, if no improvement by tomorrow, repeat infusion and consider other underlying etiology , possibly infection vs obstruction. Pancytopenia likely dilutional, monitor hx chronic anemia, continue home iron supplements Constipation likely 2/2 opioid use and limited activity Senna, Miralax, Colace may use home Movantik Hx of diastolic CHF compensated History of common bile duct dilation status post ERCP and stent placement and removal LFTs within normal limits. HTN controlled Hx of hepatitis B/C LFTs WNL Osteoporosis outpatient follow-up s/p trach due to recurrent episodes of angioedema stable Depression continue home med DVT ppx: Lovenox Plan/VTE VTE Prophylaxis Ordered?: Yes VS, I&O, 24H, Fishbone Vital Signs/I&O Vital Signs Date Time Temp Pulse Resp B/P (MAP) Pulse Ox O2 Delivery O2 Flow Rate FiO2 04/28/17 15:49 Nasal Cannula 2.0 04/28/17 15:46 12 96 04/28/17 15:28 97.9 61 121/63 (82) I&O- Last 24 Hours up to 6 AM 04/29/17 06:00 Intake Total 240 ml Balance 240 ml Laboratory Data 24H LABS Laboratory Tests 2 04/28/17 06:00: Nucleated Red Blood Cells % (auto) 0.0, Anion Gap 2L, Glomerular Filtration Rate > 60.0, Blood Urea Nitrogen 14, Creatinine 0.55, Sodium Level 139, Potassium Level 4.3, Chloride Level 101, Carbon Dioxide Level 36H, Calcium Level 8.7, Aspartate Amino Transf (AST/SGOT) 14, Alanine Aminotransferase (ALT/ SGPT) 16, Alkaline Phosphatase 115, Total Bilirubin 0.3, Total Protein 7.0, Albumin 3.1L, Magnesium Level 2.0, Albumin/Globulin Ratio 0.79L CBC/BMP Laboratory Tests 04/28/17 06:00 Red Blood Count 3.15 L, Mean Corpuscular Volume 87.6, Mean Corpuscular Hemoglobin 27.9, Mean Corpuscular Hemoglobin Concent 31.9 L, Red Cell Distribution Width 13.4, Calcium Level 8.7, Aspartate Amino Transf (AST/SGOT) 14 , Alanine Aminotransferase (ALT/SGPT) 16, Alkaline Phosphatase 115, Total Bilirubin 0.3, Total Protein 7.0, Albumin 3.1 L Microbiology Microbiology 04/25/17 Urine Culture, Received Pending GME ATTESTATION GME ATTESTATION My faculty preceptor for this patient encounter was physically present during the encounter and was fully available. All aspects of the patient interview, examination, medical decision making process, and medical care plan development were reviewed and approved by the faculty preceptor. The faculty preceptor is aware and concurs with the plan as stated in the body of this note and will attest to such by his/her cosignature. AYAKA LAZO DO Apr 28, 2017 18:50
[2017-04-28] MEDS: PRAMIPEXOLE 0.25 MG TAB PO SCH (21:32)
[2017-04-28] MEDS: MOVANTIK 25 MG PO SCH (21:33)
[2017-04-28] MEDS: [UNRECOGNIZED DRUG - OTHER] IV PRN (22:54)
[2017-04-29] VITALS (11 sets, daily range): BP systolic 134–165; BP diastolic 70–83; O2SAT 90–98
[2017-04-29] MEDS: SODIUM CHLORIDE 0.9% INJ 10 ML SYR IV PRN ×2 (00:07→04:49)
[2017-04-29] MEDS: oxyCODONE 5MG TAB PO PRN ×3 (04:48→18:58)
[2017-04-29 05:22] LABS: MEAN CORPUSCULAR VOLUME 87.5 fl (80.0-96.0); PLATELET COUNT, AUTOMATED 110 10^3/uL (150-450); RED CELL DISTRIBUTION WIDTH 13.3 % (11.5-14.5); WHITE BLOOD COUNT 2.7 10^3/uL (4.0-10.0)
[2017-04-29 07:02] LABS: ALBUMIN 2.9 GM/DL (3.2-5.2); ALBUMIN/GLOBULIN RATIO 0.85 (1.00-1.93); ALKALINE PHOSPHATASE 104 U/L (45-117); ALT/SGPT 14 U/L (12-78); ANION GAP 6 MEQ/L (8-16); AST/SGOT 13 U/L (7-37); BILIRUBIN,TOTAL 0.3 MG/DL (0.2-1.0); BLOOD UREA NITROGEN 12 MG/DL (7-18); CALCIUM LEVEL 8.3 MG/DL (8.5-10.1); CARBON DIOXIDE LEVEL 34 MEQ/L (21-32); CHLORIDE LEVEL 102 MEQ/L (98-107); CREATININE FOR GFR 0.58 MG/DL (0.55-1.02); GLOMERULAR FILTRATION RATE > 60.0 (>51); GLUCOSE, FASTING 85 MG/DL (70-105); MAGNESIUM LEVEL 1.9 MG/DL (1.8-2.4); POTASSIUM SERUM 4.3 MEQ/L (3.5-5.1); SODIUM LEVEL 142 MEQ/L (136-145); TOTAL PROTEIN 6.3 GM/DL (6.4-8.2)
[2017-04-29] MEDS: ENOXAPARIN 40 MG/0.4 ML SYRINGE (J1650) SC SCH (09:00)
[2017-04-29] MEDS: SODIUM CHLORIDE 0.9% INJ 10 ML SYR IV SCH (09:00)
[2017-04-29] MEDS: OMEPRAZOLE 20 MG CAP PO SCH (09:02)
[2017-04-29] MEDS: POTASSIUM CHLORIDE 10 MEQ SR TABLET PO SCH ×2 (09:02→21:52)
[2017-04-29] MEDS: clonazePAM 0.5 MG TAB PO SCH ×3 (09:02→21:52)
[2017-04-29] MEDS: oxyCODONE 20 MG CR TAB PO SCH ×2 (09:03→21:51)
[2017-04-29] MEDS: ATENOLOL 50 MG TAB PO SCH ×2 (09:03→21:52)
[2017-04-29] MEDS: DULoxetine 30 MG CAP (CYMBALTA) PO SCH (09:04)
[2017-04-29] MEDS: CETIRIZINE (ZyrTEC) 10 MG TAB PO SCH (09:04)
[2017-04-29] MEDS: FERROUS SULFATE 325MG TAB PO SCH (09:04)
[2017-04-29] MEDS: MIRALAX *UNIT DOSE* 17GM PACKET PO SCH (09:04)
[2017-04-29] MEDS: tiZANidine 4 MG TAB PO SCH ×3 (09:04→21:51)
[2017-04-29] MEDS: MAGNESIUM OXIDE 400 MG TAB (MAG-OX) PO SCH (13:19)
--- NOTE | 2017-04-29 20:57 | IPNPDOC ---
Subjective Date Seen The patient was seen on 04/29/17. Subjective Chief Complaint/HPI The patient is a 56-year-old female admitted with a reason for visit of Angioedema. No acute complaints. Feeling better, swelling almost fully resolved. Still constipated. Constitutional: Denies: Chills, Fever Eyes: Denies: Pain, Vision change ENT: Denies: Head Aches, Dysphagia Pulmonary: Denies: Dyspnea, Cough Cardiovascular: Denies: Chest Pain, Palpitations, Edema, Lt Headedness Gastrointestinal: Reports: Abdominal Pain, Constipation, Denies: Nausea, Vomiting Neurological: Denies: Weakness, Numbness, Incoordination Psych: Reports: Mood Normal Objective Physical Examination General Exam: Positive: Alert, Cooperative, No Acute Distress Eye Exam: Positive: Other Eye Symptoms (able to open both eyes, movement and vision intact, orbital swelling almost fully resolved.) ENT Exam: Positive: Tongue Midline, Other ENT (upper & lower lips swollen, able to communicate coherently) Neck Exam: Positive: Supple Chest Exam: Positive: Clear to auscultation, Normal air movement Heart Exam: Positive: Rate Normal, Regular Rhythm, Normal S1, Normal S2 Telemetry: Positive: No significant arrhythmia Abdomen Exam: Positive: Normal bowel sounds, Soft Extremity Exam: Negative: Cyanosis, Edema, Tenderness Neuro Exam: Positive: Normal Tone, Sensation Intact Psych Exam: Positive: Mental status NL, Mood NL, Oriented x 3 Assessment /Plan Assessment Angioedema flare hx of C1 esterase deficiency no respiratory distress or difficulty with po intake. Lips and b/l eye swelling almost fully resolved, denies vision change, dysphagia, dyspnea received C1 esterase infusion yesterday pain control with home opioid meds Allergy/Immunology consulted. Appreciate Dr. Roca's input--04/27 note handwritten in chart: recommended to continue infusions immediately, if no improvement by tomorrow, repeat infusion and consider other underlying etiology , possibly infection vs obstruction. start PT Pancytopenia likely dilutional, monitor hx chronic anemia, continue home iron supplements Constipation likely 2/2 opioid use and limited activity Senna, Miralax, Colace may use home Movantik Hx of diastolic CHF compensated History of common bile duct dilation status post ERCP and stent placement and removal LFTs within normal limits. HTN controlled Hx of hepatitis B/C LFTs WNL Osteoporosis outpatient follow-up s/p trach due to recurrent episodes of angioedema stable Depression continue home med DVT ppx: Lovenox DISPOSITION: will transfer to Med-Surg and pending PT clearance. Plan/VTE VTE Prophylaxis Ordered?: Yes VS, I&O, 24H, Fishbone Vital Signs/I&O Vital Signs Date Time Temp Pulse Resp B/P (MAP) Pulse Ox O2 Delivery O2 Flow Rate FiO2 04/29/17 18:58 18 Room Air 04/29/17 15:49 2.0 04/29/17 15:35 99.0 65 153/83 (106) 97 I&O- Last 24 Hours up to 6 AM 04/30/17 06:00 Intake Total 500 ml Balance 500 ml Laboratory Data 24H LABS Laboratory Tests 2 04/29/17 05:03: Nucleated Red Blood Cells % (auto) 0.0, Anion Gap 6L, Glomerular Filtration Rate > 60.0, Blood Urea Nitrogen 12, Creatinine 0.58, Sodium Level 142, Potassium Level 4.3, Chloride Level 102, Carbon Dioxide Level 34H, Calcium Level 8.3L, Aspartate Amino Transf (AST/SGOT) 13, Alanine Aminotransferase (ALT/ SGPT) 14, Alkaline Phosphatase 104, Total Bilirubin 0.3, Total Protein 6.3L, Albumin 2.9L, Magnesium Level 1.9, Albumin/Globulin Ratio 0.85L CBC/BMP Laboratory Tests 04/29/17 05:03 Red Blood Count 2.89 L, Mean Corpuscular Volume 87.5, Mean Corpuscular Hemoglobin 28.0, Mean Corpuscular Hemoglobin Concent 32.0, Red Cell Distribution Width 13.3, Calcium Level 8.3 L, Aspartate Amino Transf (AST/SGOT) 13, Alanine Aminotransferase (ALT/SGPT) 14, Alkaline Phosphatase 104, Total Bilirubin 0.3, Total Protein 6.3 L, Albumin 2.9 L Microbiology Microbiology 04/25/17 Urine Culture - Final, Complete Staphylococcus Epidermidis Aerococcus Urinae GME ATTESTATION GME ATTESTATION My faculty preceptor for this patient encounter was physically present during the encounter and was fully available. All aspects of the patient interview, examination, medical decision making process, and medical care plan development were reviewed and approved by the faculty preceptor. The faculty preceptor is aware and concurs with the plan as stated in the body of this note and will attest to such by his/her cosignature. AYAKA LAZO DO Apr 29, 2017 20:57
[2017-04-29] MEDS: MOVANTIK 25 MG PO SCH (21:00)
[2017-04-29] MEDS: PRAMIPEXOLE 0.25 MG TAB PO SCH (21:52)
[2017-04-30] MEDS: oxyCODONE 5MG TAB PO PRN ×4 (00:30→18:08)
[2017-04-30 02:08] VITALS: BP 143/88
[2017-04-30 05:10] VITALS: BP 140/68
[2017-04-30] MEDS: SODIUM CHLORIDE 0.9% INJ 10 ML SYR IV PRN (06:15)
[2017-04-30 06:48] LABS: MEAN CORPUSCULAR HGB CONC 31.9 g/dl (32.0-36.5); MEAN CORPUSCULAR VOLUME 87.9 fl (80.0-96.0); RED CELL DISTRIBUTION WIDTH 13.7 % (11.5-14.5); WHITE BLOOD COUNT 2.4 10^3/uL (4.0-10.0)
[2017-04-30 07:01] LABS: PLATELET COUNT, AUTOMATED 94 10^3/uL (150-450)
[2017-04-30 07:03] LABS: IMMATURE PLATELET FRACTION % 1.7 % (0.0-9.6)
[2017-04-30 07:36] LABS: MEAN CORPUSCULAR HEMOGLOBIN 28.6 pg (27.0-33.0); MEAN CORPUSCULAR HGB CONC 32.4 g/dl (32.0-36.5); MEAN CORPUSCULAR VOLUME 88.4 fl (80.0-96.0); RED CELL DISTRIBUTION WIDTH 13.6 % (11.5-14.5); WHITE BLOOD COUNT 2.5 10^3/uL (4.0-10.0)
[2017-04-30 07:44] LABS: PLATELET COUNT, AUTOMATED 90 10^3/uL (150-450)
[2017-04-30 09:16] LABS: ALBUMIN 3.2 GM/DL (3.2-5.2); ALBUMIN/GLOBULIN RATIO 0.89 (1.00-1.93); ALKALINE PHOSPHATASE 121 U/L (45-117); ALT/SGPT 15 U/L (12-78); ANION GAP 4 MEQ/L (8-16); AST/SGOT 13 U/L (7-37); BILIRUBIN,TOTAL 0.2 MG/DL (0.2-1.0); BLOOD UREA NITROGEN 13 MG/DL (7-18); CALCIUM LEVEL 8.3 MG/DL (8.5-10.1); CARBON DIOXIDE LEVEL 33 MEQ/L (21-32); CHLORIDE LEVEL 105 MEQ/L (98-107); CREATININE FOR GFR 0.57 MG/DL (0.55-1.02); GLOMERULAR FILTRATION RATE > 60.0 (>51); GLUCOSE, FASTING 90 MG/DL (70-105); MAGNESIUM LEVEL 1.8 MG/DL (1.8-2.4); SODIUM LEVEL 142 MEQ/L (136-145); TOTAL PROTEIN 6.8 GM/DL (6.4-8.2)
[2017-04-30] MEDS: oxyCODONE 20 MG CR TAB PO SCH ×2 (09:44→22:55)
[2017-04-30] MEDS: tiZANidine 4 MG TAB PO SCH ×3 (09:45→22:36)
[2017-04-30] MEDS: FERROUS SULFATE 325MG TAB PO SCH (09:46)
[2017-04-30] MEDS: clonazePAM 0.5 MG TAB PO SCH ×3 (09:47→22:36)
[2017-04-30] MEDS: DOCUSATE SODIUM 100 MG CAP PO PRN (09:48)
[2017-04-30] MEDS: ATENOLOL 50 MG TAB PO SCH ×2 (09:48→22:38)
[2017-04-30] MEDS: POTASSIUM CHLORIDE 10 MEQ SR TABLET PO SCH ×2 (09:48→22:37)
[2017-04-30] MEDS: OMEPRAZOLE 20 MG CAP PO SCH (09:48)
[2017-04-30] MEDS: CETIRIZINE (ZyrTEC) 10 MG TAB PO SCH (09:48)
[2017-04-30] MEDS: DULoxetine 30 MG CAP (CYMBALTA) PO SCH (09:49)
[2017-04-30] MEDS: ENOXAPARIN 40 MG/0.4 ML SYRINGE (J1650) SC SCH (09:49)
[2017-04-30] MEDS: SODIUM CHLORIDE 0.9% INJ 10 ML SYR IV SCH (09:50)
[2017-04-30] MEDS: MIRALAX *UNIT DOSE* 17GM PACKET PO SCH (09:54)
[2017-04-30 10:00] VITALS: BP 150/86
[2017-04-30] MEDS ORDERED: MAGNESIUM CITRATE 300 ML BTL PO ONE (12:00)
--- NOTE | 2017-04-30 12:05 | IPNPDOC ---
Subjective Date Seen The patient was seen on 04/30/17. Subjective Chief Complaint/HPI No acute complaints and is feeling better. Swelling has almost fully resolved. Pt had critical Hb this am of 6.7 and will be transfused 1 Unit and CBC will be rechecked. Pt denies shortness of breath, fatigue, palpitations, dizziness, visible bleeding. Constitutional: Denies: Chills, Fever Eyes: Denies: Pain, Vision change ENT: Denies: Dysphagia, Epistaxis Skin: Denies: Rash, Lesions Pulmonary: Denies: Dyspnea, Cough Cardiovascular: Denies: Chest Pain, Palpitations, Edema, Lt Headedness Gastrointestinal: Reports: Abdominal Pain, Constipation (last BM on admission) , Denies: Nausea, Vomiting, Melena, Hematochezia Genitourinary: Denies: Hematuria Hematologic: Denies: Bleeding Excessively Neurological: Denies: Weakness, Numbness Psych: Reports: Mood Normal Objective Physical Examination General Exam: Positive: Alert, Cooperative, No Acute Distress Eye Exam: Positive: Other Eye Symptoms (able to open both eyes, movement and vision intact, orbital swelling almost fully resolved.) ENT Exam: Positive: Tongue Midline, Other ENT (lower lip swelling improving, able to communicate coherently) Neck Exam: Positive: Supple Chest Exam: Positive: Clear to auscultation, Normal air movement Heart Exam: Positive: Rate Normal, Regular Rhythm, Normal S1, Normal S2 Telemetry: Positive: No significant arrhythmia Abdomen Exam: Positive: Normal bowel sounds, Soft Extremity Exam: Negative: Cyanosis, Edema, Tenderness Neuro Exam: Positive: Normal Tone, Sensation Intact Psych Exam: Positive: Mental status NL, Mood NL, Oriented x 3 Assessment /Plan Assessment Angioedema flare hx of C1 esterase deficiency no respiratory distress or difficulty with po intake. Lips and b/l eye swelling almost fully resolved, denies vision change, dysphagia, dyspnea received C1 esterase infusion 03/29 pain control with home opioid meds Allergy/Immunology consulted. Appreciate Dr. Roca's input--04/27 note handwritten in chart: recommended to continue infusions immediately, if no improvement by tomorrow, repeat infusion and consider other underlying etiology , possibly infection vs obstruction. pending PT eval Anemia Hb this am 6.7. Pt asymptomatic. Will transfuse 1U and recheck CBC. FOBT ordered, on PPI hx chronic anemia, continue home iron supplements will hold DVT ppx Lovenox until H&H stable Constipation likely 2/2 opioid use and limited activity Senna, Miralax, Colace may use home Movantik will add Mag Citrate Hx of diastolic CHF compensated History of common bile duct dilation status post ERCP and stent placement and removal LFTs within normal limits. HTN controlled Hx of hepatitis B/C LFTs WNL Osteoporosis outpatient follow-up s/p trach due to recurrent episodes of angioedema stable Depression continue home med DVT ppx: Lovenox on hold DISPOSITION: pending PT clearance, monitor H&H Plan/VTE VTE Prophylaxis Ordered?: Yes VS, I&O, 24H, Fishbone Vital Signs/I&O Vital Signs Date Time Temp Pulse Resp B/P (MAP) Pulse Ox O2 Delivery O2 Flow Rate FiO2 04/30/17 09:48 65 140/68 04/30/17 09:44 18 04/30/17 06:16 97.3 90 Room Air 04/29/17 19:45 2.0 Laboratory Data 24H LABS Laboratory Tests 2 04/30/17 06:35: Nucleated Red Blood Cells % (auto) 0.0, Immature Platelet Fraction 1.7 04/30/17 07:23: Nucleated Red Blood Cells % (auto) 0.0 04/30/17 08:43: Anion Gap 4L, Glomerular Filtration Rate > 60.0, Blood Urea Nitrogen 13, Creatinine 0.57, Sodium Level 142, Potassium Level 4.0, Chloride Level 105, Carbon Dioxide Level 33H, Calcium Level 8.3L, Aspartate Amino Transf (AST/SGOT) 13, Alanine Aminotransferase (ALT/SGPT) 15, Alkaline Phosphatase 121H, Total Bilirubin 0.2, Total Protein 6.8, Albumin 3.2, Magnesium Level 1.8, Albumin/ Globulin Ratio 0.89L CBC/BMP Laboratory Tests 04/30/17 06:35 Red Blood Count 2.39 L, Mean Corpuscular Volume 87.9, Mean Corpuscular Hemoglobin 28.0, Mean Corpuscular Hemoglobin Concent 31.9 L, Red Cell Distribution Width 13.7 04/30/17 07:23 Red Blood Count 2.41 L, Mean Corpuscular Volume 88.4, Mean Corpuscular Hemoglobin 28.6, Mean Corpuscular Hemoglobin Concent 32.4, Red Cell Distribution Width 13.6 04/30/17 08:43 Calcium Level 8.3 L, Aspartate Amino Transf (AST/SGOT) 13, Alanine Aminotransferase (ALT/SGPT) 15, Alkaline Phosphatase 121 H, Total Bilirubin 0.2 , Total Protein 6.8, Albumin 3.2 Microbiology Microbiology 04/25/17 Urine Culture - Final, Complete Staphylococcus Epidermidis Aerococcus Urinae GME ATTESTATION GME ATTESTATION My faculty preceptor for this patient encounter was physically present during the encounter and was fully available. All aspects of the patient interview, examination, medical decision making process, and medical care plan development were reviewed and approved by the faculty preceptor. The faculty preceptor is aware and concurs with the plan as stated in the body of this note and will attest to such by his/her cosignature. AYAKA LAZO DO Apr 30, 2017 12:05
[2017-04-30] MEDS: MAGNESIUM OXIDE 400 MG TAB (MAG-OX) PO SCH (13:22)
[2017-04-30 14:00] VITALS: BP 148/76
[2017-04-30 18:00] VITALS: BP 150/76
[2017-04-30 19:29] LABS: MEAN CORPUSCULAR HGB CONC 32.2 g/dl (32.0-36.5); MEAN CORPUSCULAR VOLUME 86.9 fl (80.0-96.0); PLATELET COUNT, AUTOMATED 116 10^3/uL (150-450); RED CELL DISTRIBUTION WIDTH 13.8 % (11.5-14.5)
[2017-04-30 22:00] VITALS: BP 133/79
[2017-04-30] MEDS: MOVANTIK 25 MG PO SCH (22:38)
[2017-04-30] MEDS: PRAMIPEXOLE 0.25 MG TAB PO SCH (22:38)
[2017-05-01] MEDS: oxyCODONE 5MG TAB PO PRN ×5 (00:40→22:37)
[2017-05-01 02:00] VITALS: BP 137/80
[2017-05-01] MEDS: SODIUM CHLORIDE 0.9% INJ 10 ML SYR IV PRN (05:55)
[2017-05-01 06:00] VITALS: BP 146/78
[2017-05-01 06:06] LABS: MEAN CORPUSCULAR HEMOGLOBIN 28.6 pg (27.0-33.0); MEAN CORPUSCULAR HGB CONC 32.5 g/dl (32.0-36.5); PLATELET COUNT, AUTOMATED 113 10^3/uL (150-450); WHITE BLOOD COUNT 3.4 10^3/uL (4.0-10.0)
[2017-05-01 08:09] LABS: ALBUMIN 3.2 GM/DL (3.2-5.2); ALBUMIN/GLOBULIN RATIO 0.89 (1.00-1.93); ALKALINE PHOSPHATASE 116 U/L (45-117); ALT/SGPT 15 U/L (12-78); ANION GAP 5 MEQ/L (8-16); AST/SGOT 13 U/L (7-37); BILIRUBIN,TOTAL 0.3 MG/DL (0.2-1.0); BLOOD UREA NITROGEN 18 MG/DL (7-18); CALCIUM LEVEL 8.3 MG/DL (8.5-10.1); CARBON DIOXIDE LEVEL 34 MEQ/L (21-32); CHLORIDE LEVEL 105 MEQ/L (98-107); CREATININE FOR GFR 0.67 MG/DL (0.55-1.02); GLOMERULAR FILTRATION RATE > 60.0 (>51); GLUCOSE, FASTING 92 MG/DL (70-105); MAGNESIUM LEVEL 2.1 MG/DL (1.8-2.4); POTASSIUM SERUM 4.6 MEQ/L (3.5-5.1); SODIUM LEVEL 144 MEQ/L (136-145); TOTAL PROTEIN 6.8 GM/DL (6.4-8.2)
[2017-05-01] MEDS: SODIUM CHLORIDE 0.9% INJ 10 ML SYR IV SCH (08:33)
[2017-05-01] MEDS: DULoxetine 30 MG CAP (CYMBALTA) PO SCH (08:34)
[2017-05-01] MEDS: OMEPRAZOLE 20 MG CAP PO SCH (08:34)
[2017-05-01] MEDS: CETIRIZINE (ZyrTEC) 10 MG TAB PO SCH (08:34)
[2017-05-01] MEDS: POTASSIUM CHLORIDE 10 MEQ SR TABLET PO SCH ×2 (08:34→20:34)
[2017-05-01] MEDS: tiZANidine 4 MG TAB PO SCH ×3 (08:34→20:35)
[2017-05-01] MEDS: clonazePAM 0.5 MG TAB PO SCH ×3 (08:34→20:36)
[2017-05-01] MEDS: FERROUS SULFATE 325MG TAB PO SCH (08:34)
[2017-05-01] MEDS: MIRALAX *UNIT DOSE* 17GM PACKET PO SCH (08:35)
[2017-05-01] MEDS: ATENOLOL 50 MG TAB PO SCH ×2 (08:35→20:35)
[2017-05-01] MEDS: oxyCODONE 20 MG CR TAB PO SCH ×2 (08:40→20:40)
[2017-05-01 10:00] VITALS: BP 110/62
--- NOTE | 2017-05-01 11:08 | IPNPDOC ---
Subjective Date Seen The patient was seen on 05/01/17. Subjective Chief Complaint/HPI Pt has no acute complaints. Pt had first BM since admission yesterday. Swelling has almost fully resolved, but pt still feels it in cheeks and lip, and would like to stay another day to monitor swelling after another infusion is given today. Constitutional: Denies: Chills, Fever Eyes: Denies: Pain, Vision change, Redness ENT: Denies: Head Aches, Ear Pain, Dysphagia Pulmonary: Denies: Dyspnea, Cough Cardiovascular: Denies: Chest Pain, Palpitations, Edema, Lt Headedness Gastrointestinal: Denies: Nausea, Vomiting, Constipation (resolved, 2 formed, soft, nonbloody BMs yesterday), Melena, Hematochezia Genitourinary: Denies: Hematuria Hematologic: Denies: Bleeding Excessively Neurological: Denies: Weakness, Numbness Psych: Reports: Mood Normal Objective Physical Examination General Exam: Positive: Alert, Cooperative, No Acute Distress Eye Exam: Positive: Other Eye Symptoms (able to open both eyes fully, movement and vision intact) ENT Exam: Positive: Tongue Midline, Other ENT (lower lip swelling almost fully resolved, able to communicate coherently) Neck Exam: Positive: Supple Chest Exam: Positive: Clear to auscultation, Normal air movement Heart Exam: Positive: Rate Normal, Regular Rhythm, Normal S1, Normal S2 Telemetry: Positive: No significant arrhythmia Abdomen Exam: Positive: Normal bowel sounds, Soft Extremity Exam: Negative: Cyanosis, Edema, Tenderness Neuro Exam: Positive: Normal Tone, Sensation Intact Psych Exam: Positive: Mental status NL, Mood NL, Oriented x 3 Assessment /Plan Assessment Angioedema flare hx of C1 esterase deficiency no respiratory distress or difficulty with po intake. Facial swelling almost fully resolved, denies vision change, dysphagia, dyspnea received C1 esterase infusion 03/29, will infuse again today pain control with home opioid meds cleared PT with recommendation of home with services Anemia stable after 1U transfused yesterday, increased from 6.9 to 9.6 FOBT ordered, on PPI hx chronic anemia, continue home iron supplements will resume Lovenox for DVT ppx Constipation resolved likely 2/2 opioid use and limited activity Senna, Miralax, Colace, home Movantik, Mag Citrate Hx of diastolic CHF compensated History of common bile duct dilation status post ERCP and stent placement and removal LFTs within normal limits HTN controlled Hx of hepatitis B/C LFTs WNL Osteoporosis outpatient follow-up s/p trach due to recurrent episodes of angioedema stable Depression continue home med DVT ppx: resume Lovenox as H&H stable DISPOSITION: monitor H&H and swelling, home with services when discharged Plan/VTE VTE Prophylaxis Ordered?: Yes VS, I&O, 24H, Fishbone Vital Signs/I&O Vital Signs Date Time Temp Pulse Resp B/P (MAP) Pulse Ox O2 Delivery O2 Flow Rate FiO2 05/01/17 10:00 Room Air 05/01/17 08:40 20 05/01/17 08:35 63 146/78 05/01/17 06:00 97.8 97 2.0 Laboratory Data 24H LABS Laboratory Tests 2 04/30/17 19:22: Nucleated Red Blood Cells % (auto) 0.0 05/01/17 05:56: Nucleated Red Blood Cells % (auto) 0.0, Anion Gap 5L, Glomerular Filtration Rate > 60.0, Blood Urea Nitrogen 18, Creatinine 0.67, Sodium Level 144, Potassium Level 4.6, Chloride Level 105, Carbon Dioxide Level 34H, Calcium Level 8.3L, Aspartate Amino Transf (AST/SGOT) 13, Alanine Aminotransferase (ALT/ SGPT) 15, Alkaline Phosphatase 116, Total Bilirubin 0.3, Total Protein 6.8, Albumin 3.2, Magnesium Level 2.1, Albumin/Globulin Ratio 0.89L CBC/BMP Laboratory Tests 04/30/17 19:22 Red Blood Count 3.43 L, Mean Corpuscular Volume 86.9, Mean Corpuscular Hemoglobin 28.0, Mean Corpuscular Hemoglobin Concent 32.2, Red Cell Distribution Width 13.8 05/01/17 05:56 Red Blood Count 3.43 L, Mean Corpuscular Volume 88.0, Mean Corpuscular Hemoglobin 28.6, Mean Corpuscular Hemoglobin Concent 32.5, Red Cell Distribution Width 14.0, Calcium Level 8.3 L, Aspartate Amino Transf (AST/SGOT) 13, Alanine Aminotransferase (ALT/SGPT) 15, Alkaline Phosphatase 116, Total Bilirubin 0.3, Total Protein 6.8, Albumin 3.2 Microbiology Microbiology 04/25/17 Urine Culture - Final, Complete Staphylococcus Epidermidis Aerococcus Urinae GME ATTESTATION GME ATTESTATION My faculty preceptor for this patient encounter was physically present during the encounter and was fully available. All aspects of the patient interview, examination, medical decision making process, and medical care plan development were reviewed and approved by the faculty preceptor. The faculty preceptor is aware and concurs with the plan as stated in the body of this note and will attest to such by his/her cosignature. AYAKA LAZO DO May 01, 2017 11:08
[2017-05-01] MEDS: ENOXAPARIN 40 MG/0.4 ML SYRINGE (J1650) SC SCH (11:29)
[2017-05-01] MEDS: MAGNESIUM OXIDE 400 MG TAB (MAG-OX) PO SCH (13:45)
[2017-05-01 14:00] VITALS: BP 145/78
[2017-05-01 18:00] VITALS: BP 110/62
[2017-05-01] MEDS: PRAMIPEXOLE 0.25 MG TAB PO SCH (20:35)
[2017-05-01] MEDS: MOVANTIK 25 MG PO SCH (20:36)
[2017-05-01] MEDS: [UNRECOGNIZED DRUG - OTHER] IV PRN (20:41)
[2017-05-01 22:00] VITALS: BP 146/84
[2017-05-02 02:00] VITALS: BP 130/80; O2SAT 96
[2017-05-02] MEDS: oxyCODONE 5MG TAB PO PRN ×3 (02:42→11:38)
[2017-05-02 06:00] VITALS: BP 138/90
[2017-05-02] MEDS: SODIUM CHLORIDE 0.9% INJ 10 ML SYR IV PRN (06:00)
[2017-05-02 06:06] LABS: MEAN CORPUSCULAR HGB CONC 32.3 g/dl (32.0-36.5); MEAN CORPUSCULAR VOLUME 86.9 fl (80.0-96.0); PLATELET COUNT, AUTOMATED 101 10^3/uL (150-450); RED CELL DISTRIBUTION WIDTH 13.7 % (11.5-14.5)
[2017-05-02 07:07] LABS: ALBUMIN 3.1 GM/DL (3.2-5.2); ALBUMIN/GLOBULIN RATIO 0.89 (1.00-1.93); ALKALINE PHOSPHATASE 118 U/L (45-117); ALT/SGPT 15 U/L (12-78); ANION GAP 6 MEQ/L (8-16); AST/SGOT 12 U/L (7-37); BILIRUBIN,TOTAL 0.4 MG/DL (0.2-1.0); BLOOD UREA NITROGEN 17 MG/DL (7-18); CALCIUM LEVEL 8.1 MG/DL (8.5-10.1); CARBON DIOXIDE LEVEL 31 MEQ/L (21-32); CHLORIDE LEVEL 105 MEQ/L (98-107); CREATININE FOR GFR 0.61 MG/DL (0.55-1.02); GLOMERULAR FILTRATION RATE > 60.0 (>51); GLUCOSE, FASTING 85 MG/DL (70-105); MAGNESIUM LEVEL 2.1 MG/DL (1.8-2.4); POTASSIUM SERUM 4.1 MEQ/L (3.5-5.1); SODIUM LEVEL 142 MEQ/L (136-145); TOTAL PROTEIN 6.6 GM/DL (6.4-8.2)
[2017-05-02] MEDS: SODIUM CHLORIDE 0.9% INJ 10 ML SYR IV SCH (07:51)
[2017-05-02] MEDS: MIRALAX *UNIT DOSE* 17GM PACKET PO SCH (08:36)
[2017-05-02] MEDS: ENOXAPARIN 40 MG/0.4 ML SYRINGE (J1650) SC SCH (08:36)
[2017-05-02 08:37] VITALS: BP 138/90
[2017-05-02] MEDS: ATENOLOL 50 MG TAB PO SCH (08:37)
[2017-05-02] MEDS: POTASSIUM CHLORIDE 10 MEQ SR TABLET PO SCH (08:37)
[2017-05-02] MEDS: CETIRIZINE (ZyrTEC) 10 MG TAB PO SCH (08:37)
[2017-05-02] MEDS: FERROUS SULFATE 325MG TAB PO SCH (08:37)
[2017-05-02] MEDS: DULoxetine 30 MG CAP (CYMBALTA) PO SCH (08:37)
[2017-05-02] MEDS: tiZANidine 4 MG TAB PO SCH (08:37)
[2017-05-02] MEDS: OMEPRAZOLE 20 MG CAP PO SCH (08:37)
[2017-05-02] MEDS: clonazePAM 0.5 MG TAB PO SCH (08:46)
[2017-05-02] MEDS: oxyCODONE 20 MG CR TAB PO SCH (08:47)
[2017-05-02 09:00] VITALS: O2SAT 97
[2017-05-02 10:00] VITALS: BP 131/71
--- NOTE | 2017-05-04 08:07 | DSES ---
DATE OF ADMISSION: 04/25/2017 DATE OF DISCHARGE: 05/02/2017 SPECIALISTS INVOLVED IN CARE: Dr. Roca COMPLICATIONS DURING STAY: None. PROCEDURES PERFORMED DURING STAY: None. DISCHARGE DIAGNOSES: 1. C1 esterase deficiency. 2. Anemia of chronic disease. 3. Constipation. 4. Diastolic congestive heart failure (CHF), compensated. 5. Common bile duct dilatation, status post ERCP and stent placement and removal by history. 6. Hypertension. 7. Hepatitis B and C. 8. Osteoporosis. 9. Prior tracheostomy. 10. Depression. SUMMARY OF PRESENTATION: This is a 56-year-old with a history of angioedema, C1 esterase deficiency, who presented with abdominal pain and eye swelling brought on by emotional distress when she had a surprise when her son come back from the [employer] and surprised her, which she thought maybe was the cause of her flare. She took Berinert with some relief. She had only mild improvement and as such was admitted to the hospitalist service. We had Dr. Roca see her in consultation. He suggested further Berinert. The patient was monitored clinically in the hospital. She did develop anemia during her stay and received 1 unit of packed red blood cells, this may have been at least partially dilutional. There was no evidence of active bleeding during her stay, although she has not had a recent colonoscopy. She is also interested in pursuing sleep study as an outpatient. On the day of discharge, she is feeling well. She is tolerating a diet. She is breathing easily on room air. She has no abdominal pain. Eye swelling is totally resolved. She is walking without assistance. Temperature 98.1, pulse 67, respiratory rate 20, blood pressure 131/71, 93% on room air. Awake. Tracheostomy is plugged. Heart is distant sounding, normal S1, S2. Abdomen is soft, doughy, nontender to deep palpation. White cell count 5.0, hemoglobin 9, and platelets of 101, creatinine 0.6. DISCHARGE INSTRUCTIONS: Include the following: Followup with Dr. Garcia, Dr. Roca within 1 week. These appointments are apparently previously made. They have been preexisting. The patient's activity and diet are as tolerated. - atenolol 50 mg by mouth twice a day - C1 esterase in the form of Berinert as directed - calcium carbonate 1200 mg by mouth daily as needed - cetirizine 10 mg by mouth daily - clonazepam 2 mg by mouth three times a day - Colace 100 mg by mouth twice a day - Cymbalta 30 mg by mouth three tablets daily - duloxetine 60 mg by mouth daily, 1-1/2 tablets - ferrous sulfate 325 mg by mouth daily - magnesium oxide 400 mg by mouth daily - meclizine 25 mg by mouth three times a day - Movantik 25 mg by mouth daily at bedtime - omeprazole 40 mg by mouth daily - oxycodone 30 mg by mouth every 4 hour as needed for pain and 40 mg every 12 hours in the form of OxyContin - KCl 20 mEq by mouth twice a day - Mirapex 0.25 mg by mouth daily at bedtime - promethazine 25 mg by mouth twice a day as needed for nausea - tizanidine 4 mg by mouth three times a day Please note, the patient may benefit from outpatient sleep study and colonoscopy if it is clinically indicated. I suggest that she discuss this with her primary care team.
== END 2017-05-02 12:00 | disposition home health service (06) | DRG 423 ==
LOC: M ED 16:23 → EDBD 16:23 → M ED INP 22:04 → M PCU 23:13 → M MSPAV 04-29 15:04
PROVIDERS: ADMIT Internal Medicine; ATTEND Internal Medicine
PROC: 30233N1 Transfusion of Nonautologous Red Blood Cells into Peripheral Vein, Percutaneous Approach (ICD-10-PCS; principal; 2017-04-30)
DX: D84.1 Defects in the complement system (principal); D61.818 Other pancytopenia; Z93.0 Tracheostomy status; I11.9 Hypertensive heart disease without heart failure; I50.32 Chronic diastolic (congestive) heart failure; B19.10 Unspecified viral hepatitis B without hepatic coma; T78.3XXS Angioneurotic edema, sequela; K59.00 Constipation, unspecified; F32.9 Major depressive disorder, single episode, unspecified; B19.20 Unspecified viral hepatitis C without hepatic coma; Z79.899 Other long term (current) drug therapy; Z85.3 Personal history of malignant neoplasm of breast; Z88.0 Allergy status to penicillin; Z88.5 Allergy status to narcotic agent; Z88.6 Allergy status to analgesic agent; Z88.8 Allergy status to other drugs, medicaments and biological substances

== ENCOUNTER 2017-05-05 18:26 | Inpatient (IN) | payer OTHER ==
[~2017-05-05] VITALS: Ht 152.4 cm; Wt 54.5 kg
[~2017-05-05 18:26] MED LIST changes: +CYMB60CA3 PO; +MOVA1TAB2 PO
[2017-05-05 19:24] LABS: BASO % 0.5 % (0.0-1.0); EOS # 0.1 10^3/uL (0.0-0.50); EOS % 2.2 % (0.0-3.0); LYMPH # 2.3 10^3/uL (1.5-4.5); LYMPH % 55.7 % (24.0-44.0); MEAN CORPUSCULAR HEMOGLOBIN 28.8 pg (27.0-33.0); MEAN CORPUSCULAR HGB CONC 33.3 g/dl (32.0-36.5); MEAN CORPUSCULAR VOLUME 86.4 fl (80.0-96.0); MONO # 0.3 10^3/uL (0.0-0.8); MONO % 6.3 % (0.0-5.0); NEUTROPHILS # 1.5 10^3/uL (1.8-7.7); NEUTROPHILS % 35.3 % (36.0-66.0); PLATELET COUNT, AUTOMATED 124 10^3/uL (150-450); RED CELL DISTRIBUTION WIDTH 13.9 % (11.5-14.5); WHITE BLOOD COUNT 4.1 10^3/uL (4.0-10.0)
[2017-05-05] MEDS ORDERED: fentaNYL 100 MCG/2 ML INJECTION (J3010) IV ONE ×2 (20:00→22:15)
[2017-05-05 20:17] LABS: ALBUMIN 3.2 GM/DL (3.2-5.2); ALBUMIN/GLOBULIN RATIO 0.89 (1.00-1.93); ALKALINE PHOSPHATASE 118 U/L (45-117); ALT/SGPT 16 U/L (12-78); ANION GAP 7 MEQ/L (8-16); AST/SGOT 15 U/L (7-37); BILIRUBIN,DIRECT 0.1 MG/DL (0.0-0.2); BILIRUBIN,TOTAL 0.4 MG/DL (0.2-1.0); BLOOD UREA NITROGEN 17 MG/DL (7-18); CARBON DIOXIDE LEVEL 29 MEQ/L (21-32); CHLORIDE LEVEL 105 MEQ/L (98-107); CREATININE FOR GFR 0.58 MG/DL (0.55-1.02); GLOMERULAR FILTRATION RATE > 60.0 (>51); GLUCOSE, FASTING 89 MG/DL (70-105); SODIUM LEVEL 141 MEQ/L (136-145); TOTAL PROTEIN 6.8 GM/DL (6.4-8.2)
[2017-05-05] MEDS ORDERED: MOVANTIK 25 MG PO SCH (21:00)
[2017-05-05] MEDS: ATENOLOL 50 MG TAB PO SCH (21:00)
[2017-05-05] MEDS ORDERED: CALC500C16 PO (21:23)
[2017-05-05] MEDS ORDERED: ZANA4TAB PO (21:23)
[2017-05-05] MEDS ORDERED: VITA1CAP40 PO (21:23)
[2017-05-05] MEDS ORDERED: AZEL1SPR3 (21:23)
[2017-05-05] MEDS ORDERED: FLON1SPR (21:23)
[2017-05-05] MEDS ORDERED: DOCUSATE SODIUM 100 MG CAP PO PRN (22:45)
[2017-05-05] MEDS ORDERED: C1 ESTERASE INHIBITOR 500 UNIT IV PRN (22:45)
[2017-05-05] MEDS ORDERED: PROMETHAZINE 25 MG TAB PO PRN (22:45)
[2017-05-05] MEDS ORDERED: AZELASTINE 137MCG NASAL SPY 30 ML (ASTELIN) PRN (22:45)
[2017-05-05] MEDS ORDERED: ONDANSETRON 4MG/2ML VIAL (J2405) IV PRN (22:45)
[2017-05-05] MEDS ORDERED: CALCIUM CARBONATE 500 MG CHEW U/D PO PRN (22:45)
[2017-05-05] MEDS ORDERED: MECLIZINE 25 MG TABLET PO PRN (22:45)
[2017-05-05] MEDS ORDERED: FLUTICASONE PROP 0.05% NASAL SPRAY 16 GM (FLONASE) PRN (22:45)
[2017-05-06] VITALS (7 sets, daily range): BP systolic 123–151; BP diastolic 68–85
--- NOTE | 2017-05-06 00:58 | HPE ---
DATE OF ADMISSION: 05/05/2017 PRIMARY CARE PROVIDER: Kamron Garcia, physician embalmer assistant. ATTENDING PHYSICIAN: Dr. Rc Cedeño. CHIEF COMPLAINT: Abdominal pain and tightness in the throat. HISTORY OF PRESENT ILLNESS: The patient is a 56-year-old white female with multiple chronic medical conditions, particularly history of angioedema, presented to the emergency room (ER) for evaluation of abdominal pain, as well as tightness of her throat. History is provided by herself. 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 She has very frequent admissions for this problem. The recent one was 04/25/2017, she was in the hospital for about a week and went home on 05/02. She states every time she had an attack she gave herself C1 esterase inhibitor. Today, she started to have abdominal pain, as well as tightness in her throat, she thought it was angioedema attack. She gave herself 2000 units intravenous ( IV) C1 esterase inhibitor and came to the hospital for further evaluation. In the ER, her workup was at her baseline. Medicine was requested to admit her to the hospital for further treatment. Otherwise, she denies any other symptoms except chronic pain. REVIEW OF SYSTEMS: Denies fever. No chills. No headache. No blurry vision. No shortness of breath, but tightness in her throat. No chest pain. No nausea. No vomiting. Positive abdominal pain. No diarrhea. No constipation. No tingling, numbness, weakness in the arms, lower extremities. All other systems reviewed, but were negative. PAST MEDICAL HISTORY: 1. 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 2. Chronic pain including low back, as well as abdominal pain on chronic opioid treatment. 3. Hypertension. 4. Osteoporosis. 5. Chronic anemia. 6. Chronic constipation. 7. Depression. 8. Chronic diastolic congestive heart failure (CHF). 9. Degenerative joint disease (DJD). PAST SURGICAL HISTORY: 1. Cholecystectomy. 2. Endoscopic retrograde cholangiopancreatography (ERCP). 3. Multiple insertions of [id number]-Rayy. 4. Tracheostomy. 5. Mastectomy. 6. Appendectomy. 7. Right hip fracture repair. SOCIAL HISTORY: She was a former smoker, but quit. No alcohol abuse. No illicit drug abuse. She is FULL CODE. FAMILY HISTORY: Multiple family members with angioedema. ALLERGIES: Allergic to ASPIRIN, CODEINE, TRAMADOL, PENICILLIN, GABAPENTIN, MORPHINE. MEDICATIONS: Reviewed. PHYSICAL EXAMINATION: VITAL SIGNS: Temperature 98, heart rate 58, respirations 16, blood pressure 140/68, and oxygen saturation 96% on room air. GENERAL: She is awake, alert, oriented times three. She is not in acute distress. HEENT: Atraumatic. Pupils are equal, round and reactive to light. No edema in her face and extraocular muscles intact. Ears, nose, and throat are normal. She has a tracheostomy in her neck area. No bruise. LUNGS: Clear, no wheezing. HEART: S1, S2 regular. No murmur. ABDOMEN: Soft. Bowel sounds positive. Nontender. LOWER EXTREMITIES: No edema in her bilateral lower extremities. NEUROLOGICAL: Nonfocal. SKIN: No rash. PSYCHOLOGICAL: No acute psychosis. DIAGNOSTIC LABORATORY STUDIES: Including the following: CBC and differential showed WBC 4.1, hemoglobin and hematocrit 9.3/27.9, platelets 124. Sodium 141, potassium 4.0, chloride 105, bicarbonate 29, BUN 17, creatinine 0.58 , glucose 89. IMPRESSION: 1. Hereditary angioedema attack. 2. Chronic pain. 3. Hypertension. 4. Chronic anemia. PLAN: Patient will be admitted to medical/surgical floor with remote telemetry monitoring. We will continue her home medications. We will use her own C1 esterase inhibitors. ERICK
[2017-05-06] MEDS: POTASSIUM CHLORIDE 10 MEQ SR TABLET PO SCH ×3 (01:03→20:14)
[2017-05-06] MEDS: clonazePAM 1 MG TAB PO SCH ×4 (01:05→20:14)
[2017-05-06] MEDS: oxyCODONE 5MG TAB PO PRN ×5 (01:05→20:23)
[2017-05-06] MEDS: oxyCODONE 40 MG CR TAB PO SCH ×3 (01:06→20:14)
[2017-05-06] MEDS: PRAMIPEXOLE 0.25 MG TAB PO SCH ×2 (01:18→20:15)
[2017-05-06] MEDS: HYDROmorphone HCL 1 MG/ML SYRINGE (J1170) IV PRN ×6 (02:53→22:37)
[2017-05-06] MEDS: MOVANTIK 25 MG PO SCH (05:33)
[2017-05-06] MEDS: FERROUS SULFATE 325MG TAB PO SCH (08:22)
[2017-05-06] MEDS: DULoxetine 30 MG CAP (CYMBALTA) PO SCH (08:23)
[2017-05-06] MEDS: ATENOLOL 50 MG TAB PO SCH ×2 (08:24→20:15)
[2017-05-06] MEDS: MAGNESIUM OXIDE 400 MG TAB (MAG-OX) PO SCH (08:25)
[2017-05-06] MEDS: CETIRIZINE (ZyrTEC) 10 MG TAB PO SCH (08:25)
[2017-05-06] MEDS: PANTOPRAZOLE 40MG INJ (PROTONIX) (C9113) IV SCH (08:26)
[2017-05-06] MEDS ORDERED: DULoxetine 30 MG CAP (CYMBALTA) PO SCH (09:00)
--- NOTE | 2017-05-06 13:27 | IPNPDOC ---
Text Note Date of Service The patient was seen on 05/06/17. NOTE Subjective: Patient seen and examined at bedside. Still complains of generalized pain and 'mouth fullness'. Objective: General: NAD, sitting comfortably at edge of bed, lumbar kyphosis HEENT: NC/AT, EOMI, s/p trach, area is C/D/I Lungs: CTA B/L Heart: +S1S2, RRR Abd: soft, NT, +BS Ext: no edema Assessment/Plan: 1. 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 - Continue with C1 esterase supplementation provided by patient 2. Chronic pain including low back, as well as abdominal pain on chronic opioid treatment. 3. Hypertension. 4. Osteoporosis. 5. Chronic anemia. 6. Chronic constipation. 7. Depression. 8. Chronic diastolic congestive heart failure (CHF). 9. Degenerative joint disease (DJD). 10 DVT prophylaxis VS,Fishbone, I+O VS, Fishbone, I+O Laboratory Tests 05/05/17 18:49 Red Blood Count 3.23 L, Mean Corpuscular Volume 86.4, Mean Corpuscular Hemoglobin 28.8, Mean Corpuscular Hemoglobin Concent 33.3, Red Cell Distribution Width 13.9, Neutrophils (%) (Auto) 35.3 L, Lymphocytes (%) (Auto) 55.7 H, Monocytes (%) (Auto) 6.3 H, Eosinophils (%) (Auto) 2.2, Basophils (%) ( Auto) 0.5, Neutrophils # (Auto) 1.5 L, Lymphocytes # (Auto) 2.3, Monocytes # ( Auto) 0.3, Eosinophils # (Auto) 0.1, Basophils # (Auto) 0.0 Vital Signs Date Time Temp Pulse Resp B/P (MAP) Pulse Ox O2 Delivery O2 Flow Rate FiO2 05/06/17 12:01 16 05/06/17 10:00 97.9 57 143/83 (103) 91 Room Air I&O- Last 24 Hours up to 6 AM 05/07/17 06:00 Output Total 200 ml Balance -200 ml AIDE ALBERT MD May 06, 2017 13:27
[2017-05-07] VITALS (7 sets, daily range): BP systolic 138–189; BP diastolic 71–93
[2017-05-07] MEDS: oxyCODONE 5MG TAB PO PRN ×5 (01:56→23:09)
[2017-05-07] MEDS: HYDROmorphone HCL 1 MG/ML SYRINGE (J1170) IV PRN ×5 (04:11→20:00)
[2017-05-07] MEDS: SODIUM CHLORIDE 0.9% INJ 10 ML SYR IV PRN ×2 (05:36→05:41)
[2017-05-07] MEDS: MOVANTIK 25 MG PO SCH (05:40)
[2017-05-07 05:55] LABS: MEAN CORPUSCULAR HEMOGLOBIN 28.2 pg (27.0-33.0); MEAN CORPUSCULAR HGB CONC 32.3 g/dl (32.0-36.5); MEAN CORPUSCULAR VOLUME 87.5 fl (80.0-96.0); PLATELET COUNT, AUTOMATED 118 10^3/uL (150-450); RED CELL DISTRIBUTION WIDTH 13.9 % (11.5-14.5); WHITE BLOOD COUNT 3.6 10^3/uL (4.0-10.0)
[2017-05-07 06:20] LABS: ANION GAP 7 MEQ/L (8-16); BLOOD UREA NITROGEN 21 MG/DL (7-18); CALCIUM LEVEL 7.9 MG/DL (8.5-10.1); CARBON DIOXIDE LEVEL 29 MEQ/L (21-32); CHLORIDE LEVEL 109 MEQ/L (98-107); CREATININE FOR GFR 0.71 MG/DL (0.55-1.02); GLOMERULAR FILTRATION RATE > 60.0 (>51); GLUCOSE, FASTING 107 MG/DL (70-105); SODIUM LEVEL 145 MEQ/L (136-145)
--- NOTE | 2017-05-07 08:49 | IPNPDOC ---
Text Note Date of Service The patient was seen on 05/07/17. NOTE Subjective: Patient seen and examined at bedside. Patient is feeling better today. Still complains of generalized and abdominal pain. Denies dyspnea. Objective: General: NAD, sitting comfortably in bed eating breakfast, lumbar kyphosis HEENT: NC/AT, EOMI, s/p trach, area is C/D/I Lungs: CTA B/L Heart: +S1S2, RRR Abd: soft, NT, +BS Ext: no edema Assessment/Plan: 1. 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 - Continue with C1 esterase supplementation provided by patient 2. Chronic pain including low back, as well as abdominal pain on chronic opioid treatment. - continue IV dilaudid, taper in 24 hours - IV protonix 3. Hypertension. 4. Osteoporosis. 5. Chronic anemia. 6. Chronic constipation. 7. Depression. 8. Chronic diastolic congestive heart failure (CHF). 9. Degenerative joint disease (DJD). 10 DVT prophylaxis VS,Fishbone, I+O VS, Fishbone, I+O Laboratory Tests 05/07/17 05:39 Red Blood Count 3.19 L, Mean Corpuscular Volume 87.5, Mean Corpuscular Hemoglobin 28.2, Mean Corpuscular Hemoglobin Concent 32.3, Red Cell Distribution Width 13.9, Calcium Level 7.9 L Vital Signs Date Time Temp Pulse Resp B/P (MAP) Pulse Ox O2 Delivery O2 Flow Rate FiO2 05/07/17 07:45 18 Room Air 05/07/17 06:00 97.9 55 145/72 (96) 96 AIDE ALBERT MD May 07, 2017 08:49
[2017-05-07] MEDS: DULoxetine 30 MG CAP (CYMBALTA) PO SCH (10:45)
[2017-05-07] MEDS: MAGNESIUM OXIDE 400 MG TAB (MAG-OX) PO SCH (10:46)
[2017-05-07] MEDS: POTASSIUM CHLORIDE 10 MEQ SR TABLET PO SCH ×2 (10:46→21:37)
[2017-05-07] MEDS: FERROUS SULFATE 325MG TAB PO SCH (10:46)
[2017-05-07] MEDS: oxyCODONE 40 MG CR TAB PO SCH ×2 (10:46→21:38)
[2017-05-07] MEDS: clonazePAM 1 MG TAB PO SCH ×3 (10:47→21:36)
[2017-05-07] MEDS: PANTOPRAZOLE 40MG INJ (PROTONIX) (C9113) IV SCH (10:47)
[2017-05-07] MEDS: CETIRIZINE (ZyrTEC) 10 MG TAB PO SCH (10:47)
[2017-05-07] MEDS: ATENOLOL 50 MG TAB PO SCH ×2 (10:48→21:37)
[2017-05-07] MEDS: SODIUM CHLORIDE 0.9% INJ 10 ML SYR IV SCH (10:48)
[2017-05-07] MEDS: HYDROCORTISONE 1% OINTMENT 30GM TOP SCH (21:00)
[2017-05-07] MEDS: PRAMIPEXOLE 0.25 MG TAB PO SCH (21:37)
[2017-05-08] MEDS: HYDROmorphone HCL 1 MG/ML SYRINGE (J1170) IV PRN ×3 (01:25→09:15)
[2017-05-08 02:00] VITALS: BP 142/72
[2017-05-08] MEDS: oxyCODONE 5MG TAB PO PRN ×4 (03:05→20:33)
[2017-05-08] MEDS: MOVANTIK 25 MG PO SCH (05:54)
[2017-05-08 05:59] LABS: MEAN CORPUSCULAR HEMOGLOBIN 27.9 pg (27.0-33.0); MEAN CORPUSCULAR HGB CONC 31.7 g/dl (32.0-36.5); PLATELET COUNT, AUTOMATED 128 10^3/uL (150-450); RED CELL DISTRIBUTION WIDTH 13.9 % (11.5-14.5); RETIC HEMOGLOBIN EQUIVALENT 29.1 pg (24-36); RETICULOCYTE % 1.5 % (0.5-1.5); WHITE BLOOD COUNT 5.1 10^3/uL (4.0-10.0)
[2017-05-08 06:00] VITALS: BP 143/82
[2017-05-08] MEDS ORDERED: C1 ESTERASE INHIBITOR 500 UNIT IV PRN ×2 (06:00→09:15)
[2017-05-08 07:25] LABS: ANION GAP 3 MEQ/L (8-16); BLOOD UREA NITROGEN 29 MG/DL (7-18); CALCIUM LEVEL 8.5 MG/DL (8.5-10.1); CARBON DIOXIDE LEVEL 30 MEQ/L (21-32); CHLORIDE LEVEL 111 MEQ/L (98-107); CREATININE FOR GFR 0.65 MG/DL (0.55-1.02); FERRITIN 50 NG/ML (8-252); GLOMERULAR FILTRATION RATE > 60.0 (>51); GLUCOSE, FASTING 96 MG/DL (70-105); PERCENT SATURATION 22.5 % (13.2-45.0); POTASSIUM SERUM 4.5 MEQ/L (3.5-5.1); SODIUM LEVEL 144 MEQ/L (136-145); TOTAL IRON BINDING CAPACITY 227 UG/DL (250-450)
[2017-05-08] MEDS: PANTOPRAZOLE 40MG INJ (PROTONIX) (C9113) IV SCH (08:23)
[2017-05-08] MEDS: oxyCODONE 40 MG CR TAB PO SCH ×2 (08:23→20:34)
[2017-05-08] MEDS: clonazePAM 1 MG TAB PO SCH ×3 (08:23→20:34)
[2017-05-08] MEDS: ATENOLOL 50 MG TAB PO SCH ×2 (08:24→20:36)
[2017-05-08] MEDS: DULoxetine 30 MG CAP (CYMBALTA) PO SCH (08:24)
[2017-05-08] MEDS: MAGNESIUM OXIDE 400 MG TAB (MAG-OX) PO SCH (08:24)
[2017-05-08] MEDS: FERROUS SULFATE 325MG TAB PO SCH (08:24)
[2017-05-08] MEDS: POTASSIUM CHLORIDE 10 MEQ SR TABLET PO SCH ×2 (08:24→20:34)
[2017-05-08] MEDS: CETIRIZINE (ZyrTEC) 10 MG TAB PO SCH (08:24)
[2017-05-08] MEDS: SODIUM CHLORIDE 0.9% INJ 10 ML SYR IV SCH (08:25)
[2017-05-08] MEDS: HYDROCORTISONE 1% OINTMENT 30GM TOP SCH ×2 (08:29→20:36)
--- NOTE | 2017-05-08 09:17 | IPNPDOC ---
Text Note Date of Service The patient was seen on 05/08/17. NOTE Subjective: Patient seen and examined at bedside. Patient is feeling better today. Her pain is improving. 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 - discussed at length with dr. muse - assistance appreciated - increased c1 esterase dosage to 2,500 units - to administer q48h #Chronic pain including low back, as well as abdominal pain on chronic opioid treatment. - taper iv dilaudid - IV protonix #acute on chronic anemia - workup thus far has been unrevealing #Hypertension. #Osteoporosis. #Chronic constipation. #Depression. #Chronic diastolic congestive heart failure (CHF). #Degenerative joint disease (DJD). #DVT prophylaxis VS,Fishbone, I+O VS, Fishbone, I+O Laboratory Tests 05/08/17 05:36 Red Blood Count 3.33 L, Mean Corpuscular Volume 88.0, Mean Corpuscular Hemoglobin 27.9, Mean Corpuscular Hemoglobin Concent 31.7 L, Red Cell Distribution Width 13.9, Calcium Level 8.5 Vital Signs Date Time Temp Pulse Resp B/P (MAP) Pulse Ox O2 Delivery O2 Flow Rate FiO2 05/08/17 08:24 65 143/82 05/08/17 08:23 18 05/08/17 06:00 98.0 95 Room Air I&O- Last 24 Hours up to 6 AM 05/09/17 06:00 Intake Total 0 ml Output Total 225 ml Balance -225 ml AIDE ALBERT MD May 08, 2017 09:17
[2017-05-08 10:00] VITALS: BP 144/74
[2017-05-08] MEDS ORDERED: NALOXONE INJ 0.4 MG/1 ML VIAL (J2310) IV PRN (13:45)
[2017-05-08 14:00] VITALS: BP 128/75
[2017-05-08] MEDS ORDERED: HYDROmorphone HCL 1 MG/ML SYRINGE (J1170) IV PRN ×2 (15:00)
[2017-05-08] MEDS ORDERED: oxyCODONE 5MG TAB PO PRN (16:45)
[2017-05-08 18:00] VITALS: BP 138/78
[2017-05-08] MEDS: PRAMIPEXOLE 0.25 MG TAB PO SCH (20:34)
[2017-05-08 22:00] VITALS: BP 146/69
[2017-05-09] MEDS: oxyCODONE 5MG TAB PO PRN ×4 (01:30→20:42)
[2017-05-09 02:00] VITALS: BP 138/83
[2017-05-09] MEDS: SODIUM CHLORIDE 0.9% INJ 10 ML SYR IV PRN (05:35)
[2017-05-09] MEDS: MOVANTIK 25 MG PO SCH ×2 (05:36→22:52)
[2017-05-09 05:53] LABS: MEAN CORPUSCULAR HEMOGLOBIN 27.4 pg (27.0-33.0); MEAN CORPUSCULAR HGB CONC 31.4 g/dl (32.0-36.5); MEAN CORPUSCULAR VOLUME 87.2 fl (80.0-96.0); PLATELET COUNT, AUTOMATED 131 10^3/uL (150-450); RED CELL DISTRIBUTION WIDTH 13.8 % (11.5-14.5); WHITE BLOOD COUNT 5.8 10^3/uL (4.0-10.0)
[2017-05-09 06:00] VITALS: BP 138/82
[2017-05-09 07:05] LABS: ANION GAP 6 MEQ/L (8-16); BLOOD UREA NITROGEN 22 MG/DL (7-18); CALCIUM LEVEL 7.9 MG/DL (8.5-10.1); CARBON DIOXIDE LEVEL 28 MEQ/L (21-32); CHLORIDE LEVEL 109 MEQ/L (98-107); CREATININE FOR GFR 0.67 MG/DL (0.55-1.02); GLOMERULAR FILTRATION RATE > 60.0 (>51); GLUCOSE, FASTING 79 MG/DL (70-105); POTASSIUM SERUM 4.5 MEQ/L (3.5-5.1); SODIUM LEVEL 143 MEQ/L (136-145)
[2017-05-09] MEDS: DULoxetine 30 MG CAP (CYMBALTA) PO SCH (09:37)
[2017-05-09] MEDS: clonazePAM 1 MG TAB PO SCH ×3 (09:37→20:39)
[2017-05-09] MEDS: FERROUS SULFATE 325MG TAB PO SCH (09:38)
[2017-05-09] MEDS: ATENOLOL 50 MG TAB PO SCH ×2 (09:38→20:40)
[2017-05-09] MEDS: MAGNESIUM OXIDE 400 MG TAB (MAG-OX) PO SCH (09:38)
[2017-05-09] MEDS: PANTOPRAZOLE 40MG INJ (PROTONIX) (C9113) IV SCH (09:38)
[2017-05-09] MEDS: oxyCODONE 40 MG CR TAB PO SCH ×2 (09:38→22:52)
[2017-05-09] MEDS: CETIRIZINE (ZyrTEC) 10 MG TAB PO SCH (09:38)
[2017-05-09] MEDS: POTASSIUM CHLORIDE 10 MEQ SR TABLET PO SCH ×2 (09:38→20:39)
[2017-05-09] MEDS: SODIUM CHLORIDE 0.9% INJ 10 ML SYR IV SCH (09:39)
[2017-05-09] MEDS: HYDROCORTISONE 1% OINTMENT 30GM TOP SCH ×2 (09:39→20:40)
[2017-05-09 10:00] VITALS: BP 148/78
--- NOTE | 2017-05-09 12:07 | IPNPDOC ---
Text Note Date of Service The patient was seen on 05/09/17. NOTE Subjective: Patient seen and examined at bedside. Patient is feeling better today. Her IV narcotics (dilaudid) were discontinued secondary to bradypnea. She states her pain is controlled with her usual regimen of oral antibiotics. 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 - discussed at length with dr. muse - assistance appreciated - increased c1 esterase dosage to 2,500 units - to administer today - patient states she is trying to arrange someone to bring her meds #Chronic pain including low back, as well as abdominal pain on chronic opioid treatment. - oral analgesics - transition to PO protonix #acute on chronic anemia - workup thus far has been unrevealing #Hypertension. #Osteoporosis. #Chronic constipation. #Depression. #Chronic diastolic congestive heart failure (CHF). #Degenerative joint disease (DJD). #DVT prophylaxis Dispo: Anticipating discharge in 24-48 hours. VS,Fishbone, I+O VS, Fishbone, I+O Laboratory Tests 05/09/17 05:39 Red Blood Count 3.36 L, Mean Corpuscular Volume 87.2, Mean Corpuscular Hemoglobin 27.4, Mean Corpuscular Hemoglobin Concent 31.4 L, Red Cell Distribution Width 13.8, Calcium Level 7.9 L Vital Signs Date Time Temp Pulse Resp B/P (MAP) Pulse Ox O2 Delivery O2 Flow Rate FiO2 05/09/17 10:00 99.1 65 20 148/78 (101) 94 Room Air I&O- Last 24 Hours up to 6 AM 05/10/17 06:00 Intake Total 240 ml Output Total 300 ml Balance -60 ml AIDE ALBERT MD May 09, 2017 12:07
[2017-05-09 14:00] VITALS: BP 138/84
[2017-05-09 18:00] VITALS: BP 134/88
[2017-05-09] MEDS: PRAMIPEXOLE 0.25 MG TAB PO SCH (20:40)
[2017-05-09 22:00] VITALS: BP 145/82
[2017-05-10] MEDS: oxyCODONE 5MG TAB PO PRN ×3 (00:35→09:21)
[2017-05-10 02:00] VITALS: BP 138/62
[2017-05-10] MEDS: SODIUM CHLORIDE 0.9% INJ 10 ML SYR IV PRN (05:19)
[2017-05-10 05:34] LABS: MEAN CORPUSCULAR HEMOGLOBIN 28.3 pg (27.0-33.0); MEAN CORPUSCULAR HGB CONC 32.2 g/dl (32.0-36.5); MEAN CORPUSCULAR VOLUME 87.8 fl (80.0-96.0); PLATELET COUNT, AUTOMATED 132 10^3/uL (150-450); RED CELL DISTRIBUTION WIDTH 13.9 % (11.5-14.5); WHITE BLOOD COUNT 4.4 10^3/uL (4.0-10.0)
[2017-05-10 06:00] VITALS: BP 138/80
[2017-05-10 07:01] LABS: ANION GAP 3 MEQ/L (8-16); BLOOD UREA NITROGEN 22 MG/DL (7-18); CALCIUM LEVEL 8.7 MG/DL (8.5-10.1); CARBON DIOXIDE LEVEL 31 MEQ/L (21-32); CHLORIDE LEVEL 108 MEQ/L (98-107); CREATININE FOR GFR 0.56 MG/DL (0.55-1.02); GLOMERULAR FILTRATION RATE > 60.0 (>51); GLUCOSE, FASTING 103 MG/DL (70-105); POTASSIUM SERUM 4.2 MEQ/L (3.5-5.1); SODIUM LEVEL 142 MEQ/L (136-145)
[2017-05-10] MEDS: PANTOPRAZOLE 40MG INJ (PROTONIX) (C9113) IV SCH (09:22)
[2017-05-10] MEDS: clonazePAM 1 MG TAB PO SCH (09:23)
[2017-05-10] MEDS: FERROUS SULFATE 325MG TAB PO SCH (09:26)
[2017-05-10] MEDS: POTASSIUM CHLORIDE 10 MEQ SR TABLET PO SCH (09:26)
[2017-05-10] MEDS: DULoxetine 30 MG CAP (CYMBALTA) PO SCH (09:26)
[2017-05-10 09:27] VITALS: BP 138/80
[2017-05-10] MEDS: CETIRIZINE (ZyrTEC) 10 MG TAB PO SCH (09:27)
[2017-05-10] MEDS: ATENOLOL 50 MG TAB PO SCH (09:27)
[2017-05-10] MEDS: SODIUM CHLORIDE 0.9% INJ 10 ML SYR IV SCH (09:28)
[2017-05-10] MEDS: MAGNESIUM OXIDE 400 MG TAB (MAG-OX) PO SCH (09:29)
[2017-05-10] MEDS: HYDROCORTISONE 1% OINTMENT 30GM TOP SCH (09:30)
[2017-05-10] MEDS ORDERED: [UNRECOGNIZED DRUG - CODE] IV (09:56)
[2017-05-10 10:00] VITALS: BP 129/86
[2017-05-10] MEDS: oxyCODONE 40 MG CR TAB PO SCH (11:01)
--- NOTE | 2017-05-10 11:58 | DS.PDOC ---
Discharge Summary General Date of Admission May 05, 2017 at 22:40 Date of Discharge 05/10/17 Specialist/Consultants Involve: A Discharge Summary DISCHARGE DIAGNOSES: 1. hereditary angioedema - C1 esterase deficiency. 2. anemia. 3. narcotic dependence. 4. chronic lower back pain/abdominal pain 5. HTN 6. osteoporosis 7. depression 8. chronic diastolic CHF 9. biliary duct stenosis s/p ERCP 10. tracheostomy COMPLICATIONS/CHIEF COMPLAINT: Hereditary Angioedema. HISTORY OF PRESENT ILLNESS: The patient is a 56-year-old white female with multiple chronic medical conditions, particularly history of angioedema, presented to the emergency room (ER) for evaluation of abdominal pain, as well as tightness of her throat. History is provided by herself. 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 She has very frequent admissions for this problem. The recent one was 04/25/2017, she was in the hospital for about a week and went home on 05/02. She was admitted for bilateral orbital swelling/angioedema on that occasion. She states every time she had an attack she gave herself C1 esterase inhibitor. Today, she started to have abdominal pain, as well as tightness in her throat, she thought it was angioedema attack. She gave herself 2000 units intravenous ( IV) C1 esterase inhibitor and came to the hospital for further evaluation. In the ER, her workup was at her baseline. Medicine was requested to admit her to the hospital for further treatment. Otherwise, she denies any other symptoms except chronic pain. HOSPITAL COURSE: Patient was admitted for pain control, acute/chronic anemia. Transfused PRBC, her H/H remained stable. Case was discussed with her rotary dump operator Dr. Roca, her C1 esterase dosage increased to 2500 units q48h. Hospital stay was significant for bradypnea, and her IV dilaudid was discontinued. DISCHARGE MEDICATIONS: Please see below. ALLERGIES: Please see below. PHYSICAL EXAMINATION ON DISCHARGE: VITAL SIGNS: Please see below. GENERAL: NAD HEENT: NC, trach in place, EOMI, PERRL NECK: supple CARDIOVASCULAR EXAMINATION: +S1S2, RRR RESPIRATORY EXAMINATION: CTA B/L ABDOMINAL EXAMINATION: soft, NT, +BS EXTREMITIES: no edema ACTIVITY: [As tolerated]. DISPOSITION: . DISCHARGE INSTRUCTIONS: 1. FOllow up PCP in 3-5 days. 2. Follow up rotary dump operator dr roca in 1-5 days. 3. medications as directed DISCHARGE CONDITION: [Stable]. TIME SPENT ON DISCHARGE: Greater than 30 minutes. Vital Signs/I&Os Vital Signs Date Time Temp Pulse Resp B/P (MAP) Pulse Ox O2 Delivery O2 Flow Rate FiO2 05/10/17 11:01 18 05/10/17 10:00 98.8 60 129/86 (100) 95 Room Air I&O- Last 24 Hours up to 6 AM 05/11/17 06:00 Intake Total 240 ml Balance 240 ml Laboratory Data Labs 24H Laboratory Tests 2 05/10/17 05:17: Nucleated Red Blood Cells % (auto) 0.0, Anion Gap 3L, Glomerular Filtration Rate > 60.0, Blood Urea Nitrogen 22H, Creatinine 0.56, Sodium Level 142, Potassium Level 4.2, Chloride Level 108H, Carbon Dioxide Level 31, Calcium Level 8.7 CBC/BMP Laboratory Tests 05/10/17 05:17 Red Blood Count 3.36 L, Mean Corpuscular Volume 87.8, Mean Corpuscular Hemoglobin 28.3, Mean Corpuscular Hemoglobin Concent 32.2, Red Cell Distribution Width 13.9, Calcium Level 8.7 Microbiology Microbiology 05/09/17 Stool Occult Blood (SANDIE) - Final, Complete Discharge Medications Scheduled Atenolol (Atenolol) 50 Mg Tab, 50 MG PO BID, (Reported) Cetirizine HCl (Cetirizine HCl) 10 Mg Tab, 10 MG PO DAILY, (Reported) Clonazepam (Klonopin) 2 Mg Tab, 2 MG PO TID, (Reported) Duloxetine Hcl (Cymbalta) 30 Mg Cap, 30 MG PO DAILY, (Reported) 90MG TOTAL Duloxetine Hcl (Cymbalta) 60 Mg Cap, 60 MG PO DAILY, (Reported) 90mg TOTAL Ergocalciferol (Vitamin D) 50,000 Unit Cap, 50,000 UNIT PO ASDIRECTED, (Reported ) TAKES ON WEDNESDAY MORNING Ferrous Sulfate (Ferrous Sulfate) 325 Mg Tab, 325 MG PO DAILY, (Reported) DOES NOT TAKE IF CONSTIPATED Magnesium Oxide (Magnesium Oxide 400) 400 Mg Tab, 400 MG PO DAILY, (Reported) TAKES IN AFTERNOON Naloxegol Oxalate (Movantik) 25 Mg Tab, 25 MG PO QHS, (Reported) Omeprazole (Prilosec) 20 Mg Cap, 40 MG PO DAILY, (Reported) Oxycodone HCl (Oxycontin) 40 Mg Tab, 40 MG PO Q12H, (Reported) Potassium Chloride (Klor-Con M10) 10 Meq Tabcr, 20 MEQ PO BID, (Reported) Pramipexole Dihydrochloride (Mirapex) 0.25 Mg Tab, 0.25 MG PO QHS, (Reported) Scheduled PRN (Flonase Allergy Relief) 50 Mcg/Act Spr, 50 MCG NA DAILY PRN for NASAL CONGESTION, (Reported) (Azelastine HCl) 0.1 % Spr, 2 SPRAYS NA DAILY PRN for NASAL CONGESTION, ( Reported) C1 Esterase Inhibitor (Human) (Berinert) 500 Unit Inj, 2,500 UNIT IV ASDIRECTED PRN for FLARE UP Calcium Carbonate (Calcium Carbonate) 500 Mg Chw, 1,000 MG PO BID PRN for HEARTBURN/INDIGESTION, (Reported) Docusate Sodium (Colace) 100 Mg Cap, 100 MG PO BID PRN for CONSTIPATION, ( Reported) Meclizine HCl (Meclizine HCl) 25 Mg Tab, 25 MG PO TID PRN for VERTIGO/DIZZINESS, (Reported) Oxycodone Hcl (Oxycodone HCl) 30 Mg Tab, 30 MG PO Q4H PRN for PAIN, (Reported) Promethazine HCl (Promethazine HCl) 25 Mg Tab, 25 MG PO BID PRN for NAUSEA, ( Reported) Tizanidine Hydrochloride (Zanaflex) 4 Mg Tab, 1 TAB PO Q12H PRN for MUSCLE SPASMS, (Reported) Allergies Coded Allergies: Aspirin (Verified Allergy, Severe, TRIGGERS ANGIOEDEMA, 08/23/12) Codeine (Verified Allergy, Severe, EXACERBATES ANGIOEDEMA, 08/23/12) Ketorolac (Verified Allergy, Intermediate, HIVES, 05/16/16) PT HAS TAKEN IBUPROFEN IN THE PAST WITHOUT ANY ISSUES Penicillins (Verified Allergy, Intermediate, HIVES, RASH, 08/23/12) HIVES, WORSENS ANGIOEDEMA Pentazocine (Verified Adverse Reaction, Severe, HALLUCINATIONS, 08/23/12) Prochlorperazine (Verified Adverse Reaction, Severe, SEVERE ANXIETY, ) Gabapentin (Verified Adverse Reaction, Intermediate, CONFUSION, 08/23/12) Pregabalin (Verified Adverse Reaction, Intermediate, CONFUSION, 08/23/12) Morphine (Verified Adverse Reaction, Mild, HEADACHES,CONFUSION, 08/23/12) AIDE ALBERT MD May 10, 2017 11:58
[2017-05-12] MEDS ORDERED: VITAMIN D 50,000 UNITS CAPSULE (ERGOCALCIFEROL 1.25MG) PO SCH (09:00)
== END 2017-05-10 11:55 | disposition home health service (06) | DRG 423 ==
LOC: EDBD 18:26 → M ED 18:26 → M ED INP 22:40 → M MSPAV 23:57
PROVIDERS: ADMIT Hospitalist; ATTEND Internal Medicine
DX: D84.1 Defects in the complement system (principal); I50.32 Chronic diastolic (congestive) heart failure; F11.20 Opioid dependence, uncomplicated; D64.9 Anemia, unspecified; I11.9 Hypertensive heart disease without heart failure; F32.9 Major depressive disorder, single episode, unspecified; M54.5 Low back pain; R10.9 Unspecified abdominal pain; Z79.899 Other long term (current) drug therapy; Z88.6 Allergy status to analgesic agent; Z88.8 Allergy status to other drugs, medicaments and biological substances; Z88.5 Allergy status to narcotic agent; Z88.0 Allergy status to penicillin; K59.00 Constipation, unspecified; M19.90 Unspecified osteoarthritis, unspecified site; Z87.891 Personal history of nicotine dependence; G89.29 Other chronic pain

== ENCOUNTER 2017-05-27 22:59 | Observation (INO) | payer OTHER ==
[2017-05-27] MEDS: HYDROmorphone HCL 1 MG/ML SYRINGE (J1170) IV (23:50)
[2017-05-27 23:57] LABS: BASO % 0.5 % (0.0-1.0); EOS # 0.1 10^3/uL (0.0-0.50); EOS % 1.7 % (0.0-3.0); HEMATOCRIT 26.3 % (36.0-47.0); HEMOGLOBIN 8.4 g/dl (12.0-16.0); IMMATURE GRANULOCYTE % 0.2 % (0-0); LYMPH # 1.8 10^3/uL (1.5-4.5); MEAN CORPUSCULAR HEMOGLOBIN 28.2 pg (27.0-33.0); MEAN CORPUSCULAR HGB CONC 31.9 g/dl (32.0-36.5); MEAN CORPUSCULAR VOLUME 88.3 fl (80.0-96.0); MONO # 0.2 10^3/uL (0.0-0.8); MONO % 4.3 % (0.0-5.0); NEUTROPHILS # 2.1 10^3/uL (1.8-7.7); NEUTROPHILS % 51.3 % (36.0-66.0); PLATELET COUNT, AUTOMATED 102 10^3/uL (150-450); RED BLOOD COUNT 2.98 10^6/uL (4.00-5.40); WHITE BLOOD COUNT 4.2 10^3/uL (4.0-10.0)
[2017-05-28 00:20] LABS: ANION GAP 2 MEQ/L (8-16); BLOOD UREA NITROGEN 32 MG/DL (7-18); CALCIUM LEVEL 8.2 MG/DL (8.5-10.1); CARBON DIOXIDE LEVEL 33 MEQ/L (21-32); CHLORIDE LEVEL 106 MEQ/L (98-107); CREATININE FOR GFR 0.69 MG/DL (0.55-1.02); GLOMERULAR FILTRATION RATE > 60.0 (>51); GLUCOSE, FASTING 88 MG/DL (70-105); POTASSIUM SERUM 4.2 MEQ/L (3.5-5.1); SODIUM LEVEL 141 MEQ/L (136-145)
[2017-05-28] MEDS: HYDROmorphone HCL 1 MG/ML SYRINGE (J1170) IV (01:39)
[2017-05-28] MEDS ORDERED: FLUTICASONE PROP 0.05% NASAL SPRAY 16 GM (FLONASE) (03:15)
[2017-05-28] MEDS ORDERED: PROMETHAZINE 25 MG TAB PO (03:15)
[2017-05-28] MEDS ORDERED: AZELASTINE 137MCG NASAL SPY 30 ML (ASTELIN) (03:15)
[2017-05-28] MEDS ORDERED: ACETAMINOPHEN TAB 650MG DOSE (2X325MG) PO (03:15)
[2017-05-28] MEDS ORDERED: CALCIUM CARBONATE 500 MG CHEW U/D PO (03:15)
[2017-05-28] MEDS: NS 1,000 ML IV ×2 (04:20→16:20)
[2017-05-28] MEDS: PRAMIPEXOLE 0.25 MG TAB PO ×2 (05:18→21:20)
[2017-05-28] MEDS: HYDROmorphone HCL 2 MG/ML 1ML VIAL (J1170) IV (05:19)
[2017-05-28] MEDS: FERROUS SULFATE 325MG TAB PO (08:26)
[2017-05-28] MEDS: DULoxetine 30 MG CAP (CYMBALTA) PO ×2 (08:26→08:41)
[2017-05-28] MEDS: oxyCODONE 40 MG CR TAB PO ×2 (08:26→21:19)
[2017-05-28] MEDS: clonazePAM 1 MG TAB PO ×3 (08:26→21:20)
[2017-05-28] MEDS: MAGNESIUM OXIDE 400 MG TAB (MAG-OX) PO (08:26)
[2017-05-28] MEDS: ATENOLOL 50 MG TAB PO ×2 (08:27→21:20)
[2017-05-28] MEDS: PANTOPRAZOLE 20 MG TAB PO (08:27)
[2017-05-28] MEDS: tiZANidine 4 MG TAB PO ×3 (08:27→21:21)
[2017-05-28] MEDS: CETIRIZINE (ZyrTEC) 10 MG TAB PO (08:27)
[2017-05-28] MEDS: DOCUSATE SODIUM 100 MG CAP PO ×3 (08:27→21:20)
[2017-05-28] MEDS: ENOXAPARIN 40 MG/0.4 ML SYRINGE (J1650) SC (08:28)
[2017-05-28] MEDS ORDERED: DULoxetine 30 MG CAP (CYMBALTA) PO (09:00)
[2017-05-28] MEDS ORDERED: C1 ESTERASE INHIBITOR 500 UNIT IV (11:30)
[2017-05-28] MEDS: oxyCODONE 5MG TAB PO ×2 (12:19→16:20)
[2017-05-28] MEDS: C1 ESTERASE INHIBITOR 500 UNIT IV (13:05)
[2017-05-29] MEDS: oxyCODONE 5MG TAB PO ×4 (04:22→15:58)
[2017-05-29 06:38] LABS: BASO % 0.3 % (0.0-1.0); EOS # 0.1 10^3/uL (0.0-0.50); EOS % 2.3 % (0.0-3.0); HEMATOCRIT 27.1 % (36.0-47.0); HEMOGLOBIN 8.8 g/dl (12.0-16.0); IMMATURE GRANULOCYTE % 0.3 % (0-0); LYMPH # 1.8 10^3/uL (1.5-4.5); LYMPH % 46.5 % (24.0-44.0); MEAN CORPUSCULAR HEMOGLOBIN 28.2 pg (27.0-33.0); MEAN CORPUSCULAR HGB CONC 32.5 g/dl (32.0-36.5); MEAN CORPUSCULAR VOLUME 86.9 fl (80.0-96.0); MONO # 0.2 10^3/uL (0.0-0.8); MONO % 5.9 % (0.0-5.0); NEUTROPHILS # 1.8 10^3/uL (1.8-7.7); NEUTROPHILS % 44.7 % (36.0-66.0); PLATELET COUNT, AUTOMATED 109 10^3/uL (150-450); RED BLOOD COUNT 3.12 10^6/uL (4.00-5.40); WHITE BLOOD COUNT 3.9 10^3/uL (4.0-10.0)
[2017-05-29 06:59] LABS: ANION GAP 4 MEQ/L (8-16); BLOOD UREA NITROGEN 16 MG/DL (7-18); CALCIUM LEVEL 7.6 MG/DL (8.5-10.1); CARBON DIOXIDE LEVEL 32 MEQ/L (21-32); CHLORIDE LEVEL 106 MEQ/L (98-107); CREATININE FOR GFR 0.52 MG/DL (0.55-1.02); GLOMERULAR FILTRATION RATE > 60.0 (>51); GLUCOSE, FASTING 81 MG/DL (70-105); POTASSIUM SERUM 3.8 MEQ/L (3.5-5.1); SODIUM LEVEL 142 MEQ/L (136-145)
[2017-05-29] MEDS: CETIRIZINE (ZyrTEC) 10 MG TAB PO (08:35)
[2017-05-29] MEDS: DULoxetine 30 MG CAP (CYMBALTA) PO (08:35)
[2017-05-29] MEDS: ATENOLOL 50 MG TAB PO ×2 (08:36→21:09)
[2017-05-29] MEDS: clonazePAM 1 MG TAB PO ×3 (08:36→21:08)
[2017-05-29] MEDS: MAGNESIUM OXIDE 400 MG TAB (MAG-OX) PO (08:37)
[2017-05-29] MEDS: FERROUS SULFATE 325MG TAB PO (08:37)
[2017-05-29] MEDS: PANTOPRAZOLE 20 MG TAB PO (08:38)
[2017-05-29] MEDS: tiZANidine 4 MG TAB PO ×3 (08:38→21:09)
[2017-05-29] MEDS: DOCUSATE SODIUM 100 MG CAP PO ×3 (08:38→21:08)
[2017-05-29] MEDS: oxyCODONE 40 MG CR TAB PO ×2 (08:39→21:08)
[2017-05-29] MEDS: NS 1,000 ML IV (08:41)
[2017-05-29] MEDS: ENOXAPARIN 40 MG/0.4 ML SYRINGE (J1650) SC (08:41)
[2017-05-29] MEDS ORDERED: guaiFENesin SYRUP 200 MG/10 ML UDC PO (14:15)
[2017-05-29] MEDS: PRAMIPEXOLE 0.25 MG TAB PO (21:08)
[2017-05-29] MEDS: BISACODYL 5 MG TAB PO (21:08)
[2017-05-30] MEDS: oxyCODONE 5MG TAB PO ×3 (05:43→14:52)
[2017-05-30] MEDS: SODIUM CHLORIDE 0.9% INJ 10 ML SYR IV ×2 (06:06→08:40)
[2017-05-30] MEDS: CETIRIZINE (ZyrTEC) 10 MG TAB PO (08:26)
[2017-05-30] MEDS: tiZANidine 4 MG TAB PO ×3 (08:27→21:41)
[2017-05-30] MEDS: DULoxetine 30 MG CAP (CYMBALTA) PO (08:27)
[2017-05-30] MEDS: DOCUSATE SODIUM 100 MG CAP PO ×3 (08:28→21:40)
[2017-05-30] MEDS: FERROUS SULFATE 325MG TAB PO (08:28)
[2017-05-30] MEDS: clonazePAM 1 MG TAB PO ×3 (08:28→21:40)
[2017-05-30] MEDS: MAGNESIUM OXIDE 400 MG TAB (MAG-OX) PO (08:28)
[2017-05-30] MEDS: oxyCODONE 40 MG CR TAB PO ×2 (08:29→21:40)
[2017-05-30] MEDS: ATENOLOL 50 MG TAB PO ×2 (08:39→21:41)
[2017-05-30] MEDS: PANTOPRAZOLE 20 MG TAB PO (08:39)
[2017-05-30] MEDS: ENOXAPARIN 40 MG/0.4 ML SYRINGE (J1650) SC (08:40)
[2017-05-30] MEDS: C1 ESTERASE INHIBITOR 500 UNIT IV (08:41)
[2017-05-30] MEDS: MIRALAX *UNIT DOSE* 17GM PACKET PO (14:23)
[2017-05-30] MEDS: PRAMIPEXOLE 0.25 MG TAB PO (21:40)
[2017-05-31] MEDS: oxyCODONE 5MG TAB PO ×3 (00:09→11:09)
[2017-05-31] MEDS: SODIUM CHLORIDE 0.9% INJ 10 ML SYR IV ×2 (06:27→09:11)
[2017-05-31 06:43] LABS: HEMATOCRIT 25.6 % (36.0-47.0); HEMOGLOBIN 8.4 g/dl (12.0-16.0); MEAN CORPUSCULAR HEMOGLOBIN 28.7 pg (27.0-33.0); MEAN CORPUSCULAR HGB CONC 32.8 g/dl (32.0-36.5); MEAN CORPUSCULAR VOLUME 87.4 fl (80.0-96.0); PLATELET COUNT, AUTOMATED 102 10^3/uL (150-450); RED BLOOD COUNT 2.93 10^6/uL (4.00-5.40); WHITE BLOOD COUNT 3.1 10^3/uL (4.0-10.0)
[2017-05-31] MEDS: tiZANidine 4 MG TAB PO (09:08)
[2017-05-31] MEDS: oxyCODONE 40 MG CR TAB PO (09:08)
[2017-05-31] MEDS: CETIRIZINE (ZyrTEC) 10 MG TAB PO (09:08)
[2017-05-31] MEDS: FERROUS SULFATE 325MG TAB PO (09:09)
[2017-05-31] MEDS: clonazePAM 1 MG TAB PO (09:09)
[2017-05-31] MEDS: PANTOPRAZOLE 20 MG TAB PO (09:09)
[2017-05-31] MEDS: DOCUSATE SODIUM 100 MG CAP PO (09:09)
[2017-05-31] MEDS: DULoxetine 30 MG CAP (CYMBALTA) PO (09:09)
[2017-05-31] MEDS: MAGNESIUM OXIDE 400 MG TAB (MAG-OX) PO (09:09)
[2017-05-31] MEDS: ENOXAPARIN 40 MG/0.4 ML SYRINGE (J1650) SC (09:10)
[2017-05-31] MEDS: ATENOLOL 50 MG TAB PO (09:12)
[2017-06-02] MEDS ORDERED: VITAMIN D 50,000 UNITS CAPSULE (ERGOCALCIFEROL 1.25MG) PO (09:00)
== END 2017-05-31 14:27 | disposition home or self-care (01) ==
LOC: M ED INP 23:00 → M MSPAV 05-28 03:35 → M ED 22:59
DX: D84.1 Defects in the complement system (principal); R10.9 Unspecified abdominal pain; M54.5 Low back pain; G89.29 Other chronic pain; F11.20 Opioid dependence, uncomplicated; I11.0 Hypertensive heart disease with heart failure; M81.0 Age-related osteoporosis without current pathological fracture; D64.9 Anemia, unspecified; I50.32 Chronic diastolic (congestive) heart failure; M19.90 Unspecified osteoarthritis, unspecified site; K83.1 Obstruction of bile duct; F32.9 Major depressive disorder, single episode, unspecified; K59.09 Other constipation; Z93.0 Tracheostomy status; Z79.899 Other long term (current) drug therapy; Z88.8 Allergy status to other drugs, medicaments and biological substances; Z88.6 Allergy status to analgesic agent; Z88.5 Allergy status to narcotic agent; Z88.0 Allergy status to penicillin; Z87.891 Personal history of nicotine dependence
CPT/HCPCS: 96372

== ENCOUNTER 2017-06-05 16:18 | Inpatient (IN) | payer OTHER ==
[2017-06-05] MEDS: HYDROmorphone HCL 1 MG/ML SYRINGE (J1170) IV ×4 (17:50→19:45)
[2017-06-05] MEDS: NS 1,000 ML IV (17:55)
[2017-06-05 18:14] LABS: BASO % 0.8 % (0.0-1.0); EOS # 0.1 10^3/uL (0.0-0.50); EOS % 1.8 % (0.0-3.0); HEMATOCRIT 29.5 % (36.0-47.0); HEMOGLOBIN 9.9 g/dl (12.0-16.0); LYMPH # 2.2 10^3/uL (1.5-4.5); LYMPH % 45.2 % (24.0-44.0); MEAN CORPUSCULAR HEMOGLOBIN 28.4 pg (27.0-33.0); MEAN CORPUSCULAR HGB CONC 33.6 g/dl (32.0-36.5); MEAN CORPUSCULAR VOLUME 84.5 fl (80.0-96.0); MONO # 0.3 10^3/uL (0.0-0.8); MONO % 5.5 % (0.0-5.0); NEUTROPHILS # 2.3 10^3/uL (1.8-7.7); NEUTROPHILS % 46.7 % (36.0-66.0); PLATELET COUNT, AUTOMATED 151 10^3/uL (150-450); RED BLOOD COUNT 3.49 10^6/uL (4.00-5.40); RED CELL DISTRIBUTION WIDTH 13.9 % (11.5-14.5); WHITE BLOOD COUNT 4.9 10^3/uL (4.0-10.0)
[2017-06-05 18:33] LABS: LACTIC ACID SEPSIS PROTOCOL 0.5 MMOL/L (0.4-2.0)
[2017-06-05 18:40] LABS: INR 1.06; PROTHROMBIN TIME 13.9 SECONDS (12.4-14.5)
[2017-06-05 18:41] LABS: PARTIAL THROMBOPLASTIN TIME 47.7 SECONDS (26.8-37.9)
[2017-06-05 19:15] LABS: ALKALINE PHOSPHATASE 140 U/L (45-117); ALT/SGPT 15 U/L (12-78); AST/SGOT 19 U/L (7-37); BILIRUBIN,DIRECT 0.1 MG/DL (0.0-0.2); BILIRUBIN,TOTAL 0.4 MG/DL (0.2-1.0); BLOOD UREA NITROGEN 18 MG/DL (7-18); CALCIUM LEVEL 8.6 MG/DL (8.5-10.1); CARBON DIOXIDE LEVEL 24 MEQ/L (21-32); CHLORIDE LEVEL 111 MEQ/L (98-107); CPK CREATINE PHOSPHOKINASE 45 U/L (26-192); CREATININE FOR GFR 0.58 MG/DL (0.55-1.02); GLUCOSE, FASTING 84 MG/DL (70-105); LIPASE 307 U/L (73-393); MB/CK RELATIVE INDEX 2.22 (< OR =4); POTASSIUM SERUM 3.9 MEQ/L (3.5-5.1); SODIUM LEVEL 144 MEQ/L (136-145); TOTAL PROTEIN 7.4 GM/DL (6.4-8.2); TROPONIN I < 0.02 NG/ML (< 0.10)
[2017-06-05 20:24] LABS: ANION GAP 9 MEQ/L (8-16)
[2017-06-05 20:25] LABS: ALBUMIN 3.6 GM/DL (3.2-5.2); ALBUMIN/GLOBULIN RATIO 0.95 (1.00-1.93)
[2017-06-05] MEDS ORDERED: PROMETHAZINE 25 MG TAB PO (21:00)
[2017-06-05] MEDS ORDERED: FLUTICASONE PROP 0.05% NASAL SPRAY 16 GM (FLONASE) (21:00)
[2017-06-05] MEDS ORDERED: CALCIUM CARBONATE 500 MG CHEW U/D PO (21:00)
[2017-06-05] MEDS ORDERED: HYDROCORTISONE 1% CREAM 30 GM TOP (21:00)
[2017-06-05] MEDS ORDERED: TRIAMCINOLONE ACET 0.1% OINTMENT 80 GM TOP (21:00)
[2017-06-05] MEDS ORDERED: AZELASTINE 137MCG NASAL SPY 30 ML (ASTELIN) (21:00)
[2017-06-05] MEDS ORDERED: MECLIZINE 25 MG TABLET PO (21:00)
[2017-06-05] MEDS ORDERED: ONDANSETRON 4MG/2ML VIAL (J2405) IV (21:15)
[2017-06-05] MEDS: ATENOLOL 50 MG TAB PO (22:55)
[2017-06-05] MEDS: DOCUSATE SODIUM 100 MG CAP PO (22:56)
[2017-06-05] MEDS: clonazePAM 1 MG TAB PO (22:57)
[2017-06-05] MEDS: POTASSIUM CHLORIDE 10 MEQ SR TABLET PO (22:57)
[2017-06-05] MEDS: tiZANidine 4 MG TAB PO (22:57)
[2017-06-05] MEDS: oxyCODONE 5MG TAB PO (22:58)
[2017-06-05] MEDS: [UNRECOGNIZED DRUG - OTHER] SC (23:33)
[2017-06-05] MEDS: guaiFENesin SYRUP 200 MG/10 ML UDC PO (23:34)
[2017-06-05] MEDS: PRAMIPEXOLE 0.25 MG TAB PO (23:34)
[2017-06-06] MEDS ORDERED: MORPHINE 2 MG/ML 1ML SYRINGE IV
[2017-06-06] MEDS: MORPHINE 2 MG/ML 1ML SYRINGE IV ×5 (00:46→20:27)
[2017-06-06] MEDS ORDERED: oxyCODONE 5MG TAB As Ordered (02:47)
[2017-06-06] MEDS: oxyCODONE 5MG TAB PO ×5 (02:52→23:55)
[2017-06-06] MEDS: NS 1,000 ML IV ×3 (03:49→23:54)
[2017-06-06] MEDS: HEPARIN SOD (PORCINE) 5000 UNITS/ML VIAL SC ×3 (05:12→21:25)
[2017-06-06 05:39] LABS: HEMATOCRIT 28.6 % (36.0-47.0); HEMOGLOBIN 9.2 g/dl (12.0-16.0); MEAN CORPUSCULAR HEMOGLOBIN 27.8 pg (27.0-33.0); MEAN CORPUSCULAR HGB CONC 32.2 g/dl (32.0-36.5); MEAN CORPUSCULAR VOLUME 86.4 fl (80.0-96.0); PLATELET COUNT, AUTOMATED 130 10^3/uL (150-450); RED BLOOD COUNT 3.31 10^6/uL (4.00-5.40); WHITE BLOOD COUNT 5.1 10^3/uL (4.0-10.0)
[2017-06-06 06:34] LABS: ANION GAP 6 MEQ/L (8-16); BLOOD UREA NITROGEN 22 MG/DL (7-18); CARBON DIOXIDE LEVEL 26 MEQ/L (21-32); CHLORIDE LEVEL 114 MEQ/L (98-107); CREATININE FOR GFR 0.68 MG/DL (0.55-1.02); GLOMERULAR FILTRATION RATE > 60.0 (>51); GLUCOSE, FASTING 89 MG/DL (70-105); POTASSIUM SERUM 4.2 MEQ/L (3.5-5.1); SODIUM LEVEL 146 MEQ/L (136-145)
[2017-06-06] MEDS ORDERED: ISOVUE-370 76% 100ML VIAL (Q9967) As Ordered (06:53)
[2017-06-06] MEDS ORDERED: C1 ESTERASE INHIBITOR 500 UNIT IV (09:00)
[2017-06-06] MEDS ORDERED: DULoxetine 30 MG CAP (CYMBALTA) PO (09:00)
[2017-06-06] MEDS: DOCUSATE SODIUM 100 MG CAP PO ×3 (09:01→21:22)
[2017-06-06] MEDS: POTASSIUM CHLORIDE 10 MEQ SR TABLET PO ×2 (09:01→21:23)
[2017-06-06] MEDS: FERROUS SULFATE 325MG TAB PO (09:01)
[2017-06-06] MEDS: DULoxetine 30 MG CAP (CYMBALTA) PO (09:01)
[2017-06-06] MEDS: OMEPRAZOLE 20 MG CAP PO (09:02)
[2017-06-06] MEDS: tiZANidine 4 MG TAB PO ×3 (09:02→21:24)
[2017-06-06] MEDS: clonazePAM 1 MG TAB PO ×3 (09:02→21:22)
[2017-06-06] MEDS: ATENOLOL 50 MG TAB PO ×2 (09:03→21:24)
[2017-06-06] MEDS: MIRALAX *UNIT DOSE* 17GM PACKET PO (09:04)
[2017-06-06] MEDS: oxyCODONE 10 MG CR TAB PO ×2 (09:04→21:24)
[2017-06-06] MEDS: [UNRECOGNIZED DRUG - OTHER] IV (09:55)
[2017-06-06] MEDS: CETIRIZINE (ZyrTEC) 10 MG TAB PO (09:55)
[2017-06-06] MEDS: MAGNESIUM OXIDE 400 MG TAB (MAG-OX) PO (09:55)
[2017-06-06] MEDS: ACETAMINOPHEN TAB 650MG DOSE (2X325MG) PO (18:11)
[2017-06-06] MEDS: PRAMIPEXOLE 0.25 MG TAB PO (21:22)
[2017-06-07] MEDS: guaiFENesin SYRUP 200 MG/10 ML UDC PO (00:17)
[2017-06-07] MEDS: MORPHINE 2 MG/ML 1ML SYRINGE IV ×4 (02:51→18:46)
[2017-06-07] MEDS: HEPARIN SOD (PORCINE) 5000 UNITS/ML VIAL SC ×3 (05:09→20:59)
[2017-06-07] MEDS: oxyCODONE 5MG TAB PO ×4 (05:10→21:02)
[2017-06-07 05:38] LABS: HEMATOCRIT 26.3 % (36.0-47.0); HEMOGLOBIN 8.4 g/dl (12.0-16.0); MEAN CORPUSCULAR HEMOGLOBIN 28.2 pg (27.0-33.0); MEAN CORPUSCULAR HGB CONC 31.9 g/dl (32.0-36.5); MEAN CORPUSCULAR VOLUME 88.3 fl (80.0-96.0); PLATELET COUNT, AUTOMATED 102 10^3/uL (150-450); RED BLOOD COUNT 2.98 10^6/uL (4.00-5.40); RED CELL DISTRIBUTION WIDTH 14.1 % (11.5-14.5); WHITE BLOOD COUNT 3.4 10^3/uL (4.0-10.0)
[2017-06-07 06:13] LABS: ANION GAP 6 MEQ/L (8-16); BLOOD UREA NITROGEN 23 MG/DL (7-18); CALCIUM LEVEL 7.8 MG/DL (8.5-10.1); CARBON DIOXIDE LEVEL 26 MEQ/L (21-32); CHLORIDE LEVEL 114 MEQ/L (98-107); CREATININE FOR GFR 0.65 MG/DL (0.55-1.02); GLOMERULAR FILTRATION RATE > 60.0 (>51); GLUCOSE, FASTING 108 MG/DL (70-105); MAGNESIUM LEVEL 1.9 MG/DL (1.8-2.4); POTASSIUM SERUM 4.3 MEQ/L (3.5-5.1); SODIUM LEVEL 146 MEQ/L (136-145)
[2017-06-07] MEDS: D5W/0.45% SODIUM CHLORIDE 1,000 ML IV (08:42)
[2017-06-07] MEDS: MIRALAX *UNIT DOSE* 17GM PACKET PO (09:28)
[2017-06-07] MEDS: POTASSIUM CHLORIDE 10 MEQ SR TABLET PO ×2 (09:29→20:59)
[2017-06-07] MEDS: DOCUSATE SODIUM 100 MG CAP PO ×3 (09:29→20:59)
[2017-06-07] MEDS: clonazePAM 1 MG TAB PO ×3 (09:29→21:00)
[2017-06-07] MEDS: FERROUS SULFATE 325MG TAB PO (09:29)
[2017-06-07] MEDS: CETIRIZINE (ZyrTEC) 10 MG TAB PO (09:29)
[2017-06-07] MEDS: OMEPRAZOLE 20 MG CAP PO (09:29)
[2017-06-07] MEDS: DULoxetine 30 MG CAP (CYMBALTA) PO (09:29)
[2017-06-07] MEDS: MAGNESIUM OXIDE 400 MG TAB (MAG-OX) PO (09:30)
[2017-06-07] MEDS: tiZANidine 4 MG TAB PO ×3 (09:30→21:00)
[2017-06-07] MEDS: ATENOLOL 50 MG TAB PO ×2 (09:30→21:01)
[2017-06-07] MEDS: oxyCODONE 10 MG CR TAB PO ×2 (09:31→21:00)
[2017-06-07] MEDS: SODIUM CHLORIDE 0.9% INJ 10 ML SYR IV ×3 (10:10→18:47)
[2017-06-07] MEDS: BISACODYL 5 MG TAB PO (15:30)
[2017-06-07] MEDS: amLODIPine 5 MG TAB PO (20:11)
[2017-06-07] MEDS: PRAMIPEXOLE 0.25 MG TAB PO (20:59)
[2017-06-08] MEDS: MORPHINE 2 MG/ML 1ML SYRINGE IV ×2 (00:21→05:01)
[2017-06-08] MEDS: SODIUM CHLORIDE 0.9% INJ 10 ML SYR IV ×2 (00:22→05:01)
[2017-06-08] MEDS: oxyCODONE 5MG TAB PO ×2 (02:17→07:34)
[2017-06-08] MEDS: HEPARIN SOD (PORCINE) 5000 UNITS/ML VIAL SC (05:02)
[2017-06-08 05:37] LABS: HEMATOCRIT 27.5 % (36.0-47.0); MEAN CORPUSCULAR HEMOGLOBIN 28.6 pg (27.0-33.0); MEAN CORPUSCULAR HGB CONC 32.7 g/dl (32.0-36.5); MEAN CORPUSCULAR VOLUME 87.3 fl (80.0-96.0); PLATELET COUNT, AUTOMATED 121 10^3/uL (150-450); RED BLOOD COUNT 3.15 10^6/uL (4.00-5.40); RED CELL DISTRIBUTION WIDTH 14.2 % (11.5-14.5)
[2017-06-08 06:11] LABS: BLOOD UREA NITROGEN 16 MG/DL (7-18); GLUCOSE, FASTING 94 MG/DL (70-105)
[2017-06-08 06:12] LABS: ANION GAP 4 MEQ/L (8-16); CALCIUM LEVEL 8.6 MG/DL (8.5-10.1); CARBON DIOXIDE LEVEL 29 MEQ/L (21-32); CHLORIDE LEVEL 107 MEQ/L (98-107); CREATININE FOR GFR 0.66 MG/DL (0.55-1.02); GLOMERULAR FILTRATION RATE > 60.0 (>51); POTASSIUM SERUM 4.3 MEQ/L (3.5-5.1); SODIUM LEVEL 140 MEQ/L (136-145)
[2017-06-08] MEDS: tiZANidine 4 MG TAB PO (08:35)
[2017-06-08] MEDS: OMEPRAZOLE 20 MG CAP PO (08:35)
[2017-06-08] MEDS: clonazePAM 1 MG TAB PO (08:35)
[2017-06-08] MEDS: POTASSIUM CHLORIDE 10 MEQ SR TABLET PO (08:35)
[2017-06-08] MEDS: DULoxetine 30 MG CAP (CYMBALTA) PO (08:35)
[2017-06-08] MEDS: MIRALAX *UNIT DOSE* 17GM PACKET PO (08:35)
[2017-06-08] MEDS: FERROUS SULFATE 325MG TAB PO (08:36)
[2017-06-08] MEDS: CETIRIZINE (ZyrTEC) 10 MG TAB PO (08:36)
[2017-06-08] MEDS: DOCUSATE SODIUM 100 MG CAP PO (08:36)
[2017-06-08] MEDS: MAGNESIUM OXIDE 400 MG TAB (MAG-OX) PO (08:36)
[2017-06-08] MEDS: ATENOLOL 50 MG TAB PO (08:38)
[2017-06-08] MEDS: amLODIPine 5 MG TAB PO (08:38)
[2017-06-09] MEDS ORDERED: VITAMIN D 50,000 UNITS CAPSULE (ERGOCALCIFEROL 1.25MG) PO (09:00)
[2017-06-09] MEDS ORDERED: SODIUM CHLORIDE 0.9% INJ 10 ML SYR IV (09:00)
== END 2017-06-08 09:58 | disposition home health service (06) | DRG 423 ==
LOC: M MS4PR 06-06 13:49 → M ED 16:18 → M ED INP 21:02
DX: D84.1 Defects in the complement system (principal); J96.21 Acute and chronic respiratory failure with hypoxia; J69.0 Pneumonitis due to inhalation of food and vomit; I11.0 Hypertensive heart disease with heart failure; I50.32 Chronic diastolic (congestive) heart failure; Z93.0 Tracheostomy status; F41.9 Anxiety disorder, unspecified; F32.9 Major depressive disorder, single episode, unspecified; F11.90 Opioid use, unspecified, uncomplicated; D64.9 Anemia, unspecified; Z79.899 Other long term (current) drug therapy; Z88.0 Allergy status to penicillin; Z88.5 Allergy status to narcotic agent; Z88.8 Allergy status to other drugs, medicaments and biological substances; Z88.6 Allergy status to analgesic agent; K59.00 Constipation, unspecified; Z87.891 Personal history of nicotine dependence; G89.29 Other chronic pain

== ENCOUNTER 2017-06-11 05:25 | Emergency (ER) | payer OTHER ==
[2017-06-11 06:19] LABS: BASO % 0.8 % (0.0-1.0); EOS # 0.1 10^3/uL (0.0-0.50); EOS % 3.4 % (0.0-3.0); HEMATOCRIT 28.1 % (36.0-47.0); HEMOGLOBIN 9.3 g/dl (12.0-16.0); IMMATURE GRANULOCYTE % 0.3 % (0-0); LYMPH % 51.3 % (24.0-44.0); MEAN CORPUSCULAR HEMOGLOBIN 28.5 pg (27.0-33.0); MEAN CORPUSCULAR HGB CONC 33.1 g/dl (32.0-36.5); MEAN CORPUSCULAR VOLUME 86.2 fl (80.0-96.0); MONO # 0.2 10^3/uL (0.0-0.8); MONO % 5.2 % (0.0-5.0); NEUTROPHILS # 1.5 10^3/uL (1.8-7.7); PLATELET COUNT, AUTOMATED 134 10^3/uL (150-450); RED BLOOD COUNT 3.26 10^6/uL (4.00-5.40); RED CELL DISTRIBUTION WIDTH 14.2 % (11.5-14.5); WHITE BLOOD COUNT 3.8 10^3/uL (4.0-10.0)
[2017-06-11 06:30] LABS: INR 1.06; PROTHROMBIN TIME 13.9 SECONDS (12.4-14.5)
[2017-06-11 06:35] LABS: LACTIC ACID SEPSIS PROTOCOL 0.5 MMOL/L (0.4-2.0)
[2017-06-11 06:47] LABS: PARTIAL THROMBOPLASTIN TIME 144.6 SECONDS (26.8-37.9)
[2017-06-11 07:08] LABS: ALBUMIN 3.2 GM/DL (3.2-5.2); ALBUMIN/GLOBULIN RATIO 0.89 (1.00-1.93); ALKALINE PHOSPHATASE 144 U/L (45-117); ALT/SGPT 14 U/L (12-78); ANION GAP 4 MEQ/L (8-16); AST/SGOT 12 U/L (7-37); BILIRUBIN,DIRECT < 0.1 MG/DL (0.0-0.2); BILIRUBIN,TOTAL 0.3 MG/DL (0.2-1.0); BLOOD UREA NITROGEN 15 MG/DL (7-18); CALCIUM LEVEL 8.2 MG/DL (8.5-10.1); CARBON DIOXIDE LEVEL 32 MEQ/L (21-32); CHLORIDE LEVEL 106 MEQ/L (98-107); CREATININE FOR GFR 0.61 MG/DL (0.55-1.02); GLOMERULAR FILTRATION RATE > 60.0 (>51); GLUCOSE, FASTING 73 MG/DL (70-105); LIPASE 77 U/L (73-393); POTASSIUM SERUM 3.8 MEQ/L (3.5-5.1); SODIUM LEVEL 142 MEQ/L (136-145); TOTAL PROTEIN 6.8 GM/DL (6.4-8.2)
[2017-06-11] MEDS: ENTER DRUG NAME HERE (PATIENT'S OWN MED) IV (08:17)
[2017-06-11] MEDS: HYDROmorphone HCL 1 MG/ML SYRINGE (J1170) IV ×2 (08:18→09:06)
[2017-06-11] MEDS: SODIUM CHLORIDE 0.9% INJ 10 ML SYR IV (09:00)
== END 2017-06-11 09:31 | disposition home or self-care (01) ==
LOC: M ED 05:25
DX: D84.1 Defects in the complement system (principal); R10.9 Unspecified abdominal pain; M54.9 Dorsalgia, unspecified; G89.29 Other chronic pain; Z87.891 Personal history of nicotine dependence; R42 Dizziness and giddiness; G43.909 Migraine, unspecified, not intractable, without status migrainosus; I50.32 Chronic diastolic (congestive) heart failure; I11.0 Hypertensive heart disease with heart failure; J44.9 Chronic obstructive pulmonary disease, unspecified; Z93.0 Tracheostomy status; K21.9 Gastro-esophageal reflux disease without esophagitis; K52.9 Noninfective gastroenteritis and colitis, unspecified; Z87.19 Personal history of other diseases of the digestive system; Z86.19 Personal history of other infectious and parasitic diseases; B19.10 Unspecified viral hepatitis B without hepatic coma; B19.20 Unspecified viral hepatitis C without hepatic coma; M41.9 Scoliosis, unspecified; F32.9 Major depressive disorder, single episode, unspecified; F41.9 Anxiety disorder, unspecified; Z88.8 Allergy status to other drugs, medicaments and biological substances; Z88.5 Allergy status to narcotic agent; Z88.0 Allergy status to penicillin; Z79.899 Other long term (current) drug therapy; Z79.891 Long term (current) use of opiate analgesic; Z85.3 Personal history of malignant neoplasm of breast; Z90.13 Acquired absence of bilateral breasts and nipples
CPT/HCPCS: J1170

== ENCOUNTER 2017-07-05 04:13 | Emergency (ER) | payer OTHER ==
[2017-07-05] MEDS: HYDROmorphone HCL 1 MG/ML SYRINGE (J1170) IV ×3 (06:25→07:00)
[2017-07-07] MEDS ORDERED: HYDROmorphone HCL 1 MG/ML SYRINGE (J1170) IM (07:30)
[2017-07-07] MEDS ORDERED: ONDANSETRON 4 MG ORAL DISINTEGRATING TAB (S0181) PO (07:30)
== END 2017-07-05 08:09 | disposition home or self-care (01) ==
LOC: M ED 04:13
DX: G89.4 Chronic pain syndrome (principal); D84.1 Defects in the complement system; F32.9 Major depressive disorder, single episode, unspecified; K21.9 Gastro-esophageal reflux disease without esophagitis; Z79.899 Other long term (current) drug therapy
CPT/HCPCS: J1170

== ENCOUNTER 2017-07-07 05:35 | Emergency (ER) | payer OTHER ==
[2017-07-07] MEDS: ONDANSETRON 4 MG ORAL DISINTEGRATING TAB (S0181) PO (07:54)
[2017-07-07 07:56] LABS: BASO % 0.4 % (0.0-1.0); EOS # 0.1 10^3/uL (0.0-0.50); EOS % 1.7 % (0.0-3.0); HEMOGLOBIN 9.8 g/dl (12.0-16.0); IMMATURE GRANULOCYTE % 0.2 % (0-3.0); LYMPH # 2.4 10^3/uL (1.5-4.5); LYMPH % 51.6 % (24.0-44.0); MEAN CORPUSCULAR HEMOGLOBIN 28.6 pg (27.0-33.0); MEAN CORPUSCULAR HGB CONC 33.8 g/dl (32.0-36.5); MEAN CORPUSCULAR VOLUME 84.5 fl (80.0-96.0); MONO # 0.2 10^3/uL (0.0-0.8); NEUTROPHILS # 1.9 10^3/uL (1.8-7.7); NEUTROPHILS % 41.1 % (36.0-66.0); PLATELET COUNT, AUTOMATED 126 10^3/uL (150-450); RED BLOOD COUNT 3.43 10^6/uL (4.00-5.40); RED CELL DISTRIBUTION WIDTH 13.8 % (11.5-14.5); WHITE BLOOD COUNT 4.6 10^3/uL (4.0-10.0)
[2017-07-07] MEDS: HYDROmorphone HCL 1 MG/ML SYRINGE (J1170) IM (07:57)
[2017-07-07 08:25] LABS: ALBUMIN 3.4 GM/DL (3.2-5.2); ALBUMIN/GLOBULIN RATIO 0.83 (1.00-1.93); ALKALINE PHOSPHATASE 167 U/L (45-117); ALT/SGPT 17 U/L (12-78); ANION GAP 7 MEQ/L (8-16); AST/SGOT 16 U/L (7-37); BILIRUBIN,DIRECT 0.1 MG/DL (0.0-0.2); BILIRUBIN,TOTAL 0.3 MG/DL (0.2-1.0); BLOOD UREA NITROGEN 15 MG/DL (7-18); CALCIUM LEVEL 8.1 MG/DL (8.5-10.1); CARBON DIOXIDE LEVEL 27 MEQ/L (21-32); CHLORIDE LEVEL 110 MEQ/L (98-107); CREATININE FOR GFR 0.62 MG/DL (0.55-1.30); GLOMERULAR FILTRATION RATE > 60.0 (>51); GLUCOSE, FASTING 86 MG/DL (70-100); POTASSIUM SERUM 3.5 MEQ/L (3.5-5.1); SODIUM LEVEL 144 MEQ/L (136-145); TOTAL PROTEIN 7.5 GM/DL (6.4-8.2)
[2017-07-07] MEDS ORDERED: HYDROmorphone HCL 1 MG/ML SYRINGE (J1170) IM (08:45)
[2017-07-07] MEDS ORDERED: SODIUM CHLORIDE 0.9% INJ 10 ML SYR IV (08:45)
[2017-07-07] MEDS: HYDROmorphone HCL 1 MG/ML SYRINGE (J1170) IV (08:51)
[2017-07-07] MEDS: SODIUM CHLORIDE 0.9% INJ 10 ML SYR IV (08:51)
== END 2017-07-07 09:07 | disposition home or self-care (01) ==
LOC: M ED 05:35
DX: R10.11 Right upper quadrant pain (principal); R10.12 Left upper quadrant pain; G89.29 Other chronic pain; D84.1 Defects in the complement system; K21.9 Gastro-esophageal reflux disease without esophagitis; G43.909 Migraine, unspecified, not intractable, without status migrainosus; R42 Dizziness and giddiness; Z85.3 Personal history of malignant neoplasm of breast; Z93.0 Tracheostomy status; Z79.899 Other long term (current) drug therapy; Z88.6 Allergy status to analgesic agent; Z88.8 Allergy status to other drugs, medicaments and biological substances; Z88.5 Allergy status to narcotic agent; Z88.0 Allergy status to penicillin
CPT/HCPCS: J1170

== ENCOUNTER 2017-07-28 01:13 | Emergency (ER) | payer OTHER ==
[2017-07-28] MEDS: ONDANSETRON 4MG/2ML VIAL (J2405) IV (03:40)
[2017-07-28] MEDS: fentaNYL 100 MCG/2 ML INJECTION (J3010) IV ×2 (03:43→04:56)
[2017-07-28] MEDS: SODIUM CHLORIDE 0.9% INJ 10 ML SYR IV (03:49)
== END 2017-07-28 05:36 | disposition home or self-care (01) ==
LOC: M ED 01:13
DX: R10.9 Unspecified abdominal pain (principal); G89.29 Other chronic pain; D84.1 Defects in the complement system; I11.0 Hypertensive heart disease with heart failure; F32.9 Major depressive disorder, single episode, unspecified; I50.9 Heart failure, unspecified; Z88.6 Allergy status to analgesic agent; Z88.8 Allergy status to other drugs, medicaments and biological substances; Z88.5 Allergy status to narcotic agent; Z88.0 Allergy status to penicillin; Z79.899 Other long term (current) drug therapy; Z79.891 Long term (current) use of opiate analgesic
CPT/HCPCS: J2405

== ENCOUNTER 2017-11-17 23:09 | Emergency (ER) | payer OTHER ==
[2017-11-17] MEDS: NS 1,000 ML IV (23:54)
[2017-11-17] MEDS: HYDROmorphone HCL 1 MG/ML SYRINGE (J1170) IV (23:55)
[2017-11-17] MEDS: ONDANSETRON 4MG/2ML VIAL (J2405) IV (23:55)
[2017-11-18] MEDS: HYDROmorphone HCL 1 MG/ML SYRINGE (J1170) IV (00:26)
[2017-11-18 00:27] LABS: ALBUMIN 3.5 GM/DL (3.2-5.2); ALBUMIN/GLOBULIN RATIO 1.06 (1.00-1.93); ALKALINE PHOSPHATASE 129 U/L (45-117); ALT/SGPT 18 U/L (12-78); ANION GAP 8 MEQ/L (8-16); AST/SGOT 17 U/L (7-37); BILIRUBIN,DIRECT 0.1 MG/DL (0.0-0.2); BILIRUBIN,TOTAL 0.4 MG/DL (0.2-1.0); BLOOD UREA NITROGEN 11 MG/DL (7-18); CALCIUM LEVEL 8.5 MG/DL (8.5-10.1); CARBON DIOXIDE LEVEL 26 MEQ/L (21-32); CHLORIDE LEVEL 112 MEQ/L (98-107); GLOMERULAR FILTRATION RATE > 60.0 (>51); GLUCOSE, FASTING 84 MG/DL (70-100); LIPASE 205 U/L (73-393); POTASSIUM SERUM 3.5 MEQ/L (3.5-5.1); SODIUM LEVEL 146 MEQ/L (136-145); TOTAL PROTEIN 6.8 GM/DL (6.4-8.2)
[2017-11-18 00:31] LABS: EOS # 0.1 10^3/uL (0.0-0.50); EOS % 1.9 % (0.0-3.0); HEMATOCRIT 29.6 % (36.0-47.0); HEMOGLOBIN 10.1 g/dl (12.0-15.5); IMMATURE GRANULOCYTE % 0.6 % (0-3.0); LYMPH # 1.4 10^3/uL (1.5-4.5); LYMPH % 43.9 % (24.0-44.0); MEAN CORPUSCULAR HEMOGLOBIN 28.9 pg (27.0-33.0); MEAN CORPUSCULAR HGB CONC 34.1 g/dl (32.0-36.5); MEAN CORPUSCULAR VOLUME 84.8 fl (80.0-96.0); MONO # 0.3 10^3/uL (0.0-0.8); MONO % 8.1 % (0.0-5.0); NEUTROPHILS # 1.4 10^3/uL (1.8-7.7); NEUTROPHILS % 44.5 % (36.0-66.0); PLATELET COUNT, AUTOMATED 104 10^3/uL (150-450); RED BLOOD COUNT 3.49 10^6/uL (4.00-5.40); RED CELL DISTRIBUTION WIDTH 13.7 % (11.5-14.5); WHITE BLOOD COUNT 3.1 10^3/uL (4.0-10.0)
[2017-11-18] MEDS: oxyCODONE 5MG TAB PO (01:04)
== END 2017-11-18 01:13 | disposition home or self-care (01) ==
LOC: M ED 23:09
DX: R10.9 Unspecified abdominal pain (principal); G89.29 Other chronic pain; D84.1 Defects in the complement system; F17.200 Nicotine dependence, unspecified, uncomplicated; Z79.899 Other long term (current) drug therapy; Z79.891 Long term (current) use of opiate analgesic; Z88.6 Allergy status to analgesic agent; Z88.5 Allergy status to narcotic agent; Z88.8 Allergy status to other drugs, medicaments and biological substances; Z88.0 Allergy status to penicillin
CPT/HCPCS: J1170

== ENCOUNTER 2017-12-12 09:16 | Emergency (ER) | payer OTHER ==
[2017-12-12 10:20] LABS: BASO % 0.6 % (0.0-1.0); EOS # 0.1 10^3/uL (0.0-0.50); EOS % 1.9 % (0.0-3.0); HEMATOCRIT 27.8 % (36.0-47.0); HEMOGLOBIN 9.2 g/dl (12.0-15.5); IMMATURE GRANULOCYTE % 0.4 % (0-3.0); LYMPH % 43.4 % (24.0-44.0); MEAN CORPUSCULAR HEMOGLOBIN 28.8 pg (27.0-33.0); MEAN CORPUSCULAR HGB CONC 33.1 g/dl (32.0-36.5); MEAN CORPUSCULAR VOLUME 87.1 fl (80.0-96.0); MONO # 0.2 10^3/uL (0.0-0.8); MONO % 5.1 % (0.0-5.0); NEUTROPHILS # 2.3 10^3/uL (1.8-7.7); NEUTROPHILS % 48.6 % (36.0-66.0); PLATELET COUNT, AUTOMATED 144 10^3/uL (150-450); RED BLOOD COUNT 3.19 10^6/uL (4.00-5.40); RED CELL DISTRIBUTION WIDTH 13.4 % (11.5-14.5); WHITE BLOOD COUNT 4.7 10^3/uL (4.0-10.0)
[2017-12-12] MEDS: NS 1,000 ML IV (10:43)
[2017-12-12] MEDS: HYDROMORPHONE HCL 0.5 MG/ 0.5 ML SYRINGE (J1170 PER 1) IV ×2 (10:44→11:18)
[2017-12-12] MEDS: ONDANSETRON 4MG/2ML VIAL (J2405) IV (10:44)
[2017-12-12 10:48] LABS: ALBUMIN 2.8 GM/DL (3.2-5.2); ALBUMIN/GLOBULIN RATIO 0.76 (1.00-1.93); ALKALINE PHOSPHATASE 127 U/L (45-117); ALT/SGPT 17 U/L (12-78); ANION GAP 8 MEQ/L (8-16); AST/SGOT 16 U/L (7-37); BILIRUBIN,DIRECT 0.1 MG/DL (0.0-0.2); BILIRUBIN,TOTAL 0.3 MG/DL (0.2-1.0); BLOOD UREA NITROGEN 15 MG/DL (7-18); CALCIUM LEVEL 8.1 MG/DL (8.5-10.1); CARBON DIOXIDE LEVEL 27 MEQ/L (21-32); CHLORIDE LEVEL 109 MEQ/L (98-107); CREATININE FOR GFR 0.54 MG/DL (0.55-1.30); GLOMERULAR FILTRATION RATE > 60.0 (>51); GLUCOSE, FASTING 80 MG/DL (70-100); LIPASE 135 U/L (73-393); POTASSIUM SERUM 3.7 MEQ/L (3.5-5.1); SODIUM LEVEL 144 MEQ/L (136-145); TOTAL PROTEIN 6.5 GM/DL (6.4-8.2)
[2017-12-12] MEDS: oxyCODONE 5MG TAB PO (12:13)
== END 2017-12-12 12:39 | disposition home or self-care (01) ==
LOC: M ED 09:16
DX: R10.9 Unspecified abdominal pain (principal); I11.0 Hypertensive heart disease with heart failure; I50.9 Heart failure, unspecified; F33.9 Major depressive disorder, recurrent, unspecified; D84.1 Defects in the complement system; M81.0 Age-related osteoporosis without current pathological fracture; G89.29 Other chronic pain; Z93.0 Tracheostomy status; Z98.890 Other specified postprocedural states; Z87.891 Personal history of nicotine dependence; Z88.8 Allergy status to other drugs, medicaments and biological substances; Z88.5 Allergy status to narcotic agent; Z88.0 Allergy status to penicillin
CPT/HCPCS: J2405

== ENCOUNTER 2017-12-13 04:01 | Emergency (ER) | payer OTHER ==
[2017-12-13] MEDS: HYDROMORPHONE HCL 0.5 MG/ 0.5 ML SYRINGE (J1170 PER 1) IV (04:56)
[2017-12-13] MEDS: HALOPERIDOL 5 MG/ML VIAL (J1630) IV (04:56)
[2017-12-13] MEDS: diphenhydrAMINE INJ 50MG/ML VIAL (J1200) IV (04:56)
[2017-12-13] MEDS: NORCO, ANEXSIA 5/325MG TABLET (HYDROcodone/ACETAMINOPHEN) PO (06:01)
== END 2017-12-13 06:02 | disposition home or self-care (01) ==
LOC: M ED 04:01
DX: G89.4 Chronic pain syndrome (principal); F11.20 Opioid dependence, uncomplicated; J44.9 Chronic obstructive pulmonary disease, unspecified; K21.9 Gastro-esophageal reflux disease without esophagitis; D84.1 Defects in the complement system; Z79.899 Other long term (current) drug therapy; Z88.0 Allergy status to penicillin; Z88.5 Allergy status to narcotic agent; Z88.8 Allergy status to other drugs, medicaments and biological substances; Z87.891 Personal history of nicotine dependence
CPT/HCPCS: J1200